=== PATIENT | male | born 1960 | race Caucasian/White ===

== ENCOUNTER 2023-11-11 21:58 | Inpatient (IN) | payer MEDICARE, OTHER, SELFPAY ==
[2023-11-11] VITALS (12 sets, daily range): BP systolic 157–207; BP diastolic 90–114; BMI 23.4; BMI 22.8
--- NOTE | 2023-11-11 13:56 | ED.SKININJ ---
HPI-Injury
<Zaria Rdz FORM BLOCK MAKER - Last Filed: 11/11/23 17:43>
General
Chief Complaint: Skin Problem
Source: patient
Exam Limitations: none
Time Seen by Provider: 11/11/23 13:46
Nursing documentation reviewed up to this point in time: agreed with
Travel History
Have you had any contact with someone who has COVID-19?: No
Do you have any symptoms of coronavirus? Fever > 100 degrees, chills, cough, shortness of breath, sore throat, loss of taste or smell, muscle aches, or headache?: No
History of Present Illness-Injury
Initial Injury comments:
63-year-old male with history of neuropathy, IDDM, anxiety states he saw his painter set 3 days ago and had callus shaved off sloughing, cleaning and debriding of at site of previously amputated left 5th toe. Last night noted redness around the
site. He has neuropathy in both feet with no sensation, so, no pain. Denies fever or chills. He is having a special sneaker made to take the pressure off of the affected area.
Patient also states 'my sugars have been all over the place.' Anywhere from 100-500 blood sugars at home. His PCP Dr. Nik Dumont is aware and he is scheduled for outpatient laboratory work in 5 days. He has a sliding scale he uses.
Past History
<Zaria Rdz FORM BLOCK MAKER - Last Filed: 11/11/23 17:43>
Past History
ED Past Medical History: HTN, IDDM, Psychiatric (Anxiety) and Other (Low back pain)
ED Past Surgical History: Orthopedic (Back surgeries) and Other (Amputation left fifth toe)
Social History
Tobacco: Non-smoker
Alcohol: Occasional
Personal:
Living: other (Resides with brother )
Employment: Disabled
Family History
Family History: Other (Noncontributory)
Review of Systems
<Zaria Rdz, FORM BLOCK MAKER - Last Filed: 11/11/23 17:43>
Review of Systems
Allergies reviewed?: Yes
All Other Systems: ROS reviewed and negative except as documented in HPI and ROS
Constitutional: Denies fever or chills
Respiratory: Denies trouble breathing
Cardiac: Denies chest pain
ABD/GI: Denies abdominal pain, nausea or vomiting
: Denies dysuria or difficulty voiding
Musculoskeletal: Reports no symptoms
Skin: Reports other (Redness around the amputation site of left fifth toe 3 days after painter set cleaned and debrided the area)
Neurological: Reports numbness (No feeling in his feet)
Phy Exam
<Zaria Rdz, FORM BLOCK MAKER - Last Filed: 11/11/23 17:43>
Physical Exam
Physical Exam:
GENERAL: No acute distress. A&Ox3.
CONSTITUTIONAL: Afebrile.
RESPIRATORY: Regular respirations, nonlabored, lungs clear.
CARDIOVASCULAR: Regular rate and rhythm, no murmurs, no rubs.
MUSCULOSKELETAL: Moves with ease. Well perfused.
SKIN: Warm, dry, pink. Left foot with missing 5th toe, sloughing, thick scaling skin dorsal and plantar aspect distal lateral foot. There is 6x6 cm reddened area proximal lateral dorsum head of 5th metatarsal. No lymphangitis. No significant warmth.
PSYCH: Normal mood and affect. Well kept, interactive and appropriate
NEUROLOGIC: Awake, alert and oriented. No focal neurological deficits
Course
<Zaria Rdz, FORM BLOCK MAKER - Last Filed: 11/11/23 17:43>
Orders/Labs/Results
Orders:
Orders
11/11/23 14:11
B-Hydroxybutyrate Urgent
Comment: add-on
Complete Blood Count/With Diff Urgent
Comprehensive Metabolic Panel Urgent
11/11/23 15:04
Add On- LAB Urgent
Tests Added?: B hydroxybuterate
Insulin Aspart [NOVOLOG vial] 10 units SC NOW STA
11/11/23 15:05
0.9% Sodium Chloride 1000 ml [Nss] 1,000 ml IV BOLUS
11/11/23 16:27
Piperacillin/Tazo 3.375 Gram [Zosyn] 3.375 gram in 50 ml IV NOW
11/11/23 16:30
Foot, Left 3 View [CR Foot - Left Min 3 Views] Urgent
Comment:
Reason For Exam: diabetic foot infection
Abnormal Lab Results
11/11/23 11/11/23
14:11 16:20
RBC 3.79 L 10^6/uL
(4.70-6.10)
Hgb 11.5 L g/dL
(13.0-18.0)
Hct 31.5 L %
(39.0-52.0)
Abs Immat Gran (auto) 0.1 H 10^3/uL
(0-0.05)
Immature Gran % 0.7 H %
(0-0.5)
Lymphocytes % 17.4 L %
(20.5-51.1)
Sodium 130 L mmol/L
(135-145)
BUN 34 H mg/dl
(9-20)
Creatinine 1.5 H mg/dL
(0.7-1.3)
Glucose 543 H* mg/dl
(70-99)
AST 14 L U/L
(17-59)
Albumin 3.3 L g/dl
(3.5-5.0)
POC Glucose 391 H mg/dl
(70-99)
11/11/23 14:11
11/11/23 14:11
Vital Signs
Initial and Last Documented VS:
Initial Vital Signs
Temp Pulse Resp BP Pulse Ox
97.5 F 92 16 200/112 98
02/25/24 13:03 11/11/23 13:03 11/11/23 13:03 11/11/23 13:03 11/11/23 13:03
Last Documented Vital Signs
Temp Pulse Resp BP Pulse Ox
98 F 84 16 172/98 96
11/11/23 14:30 11/11/23 15:20 11/11/23 15:20 11/11/23 15:19 11/11/23 15:20
Donor Services Specialist consulted with Physician
Donor Services Specialist consulted with physician?: Yes
Name of Physician Consulted: Mary
<Yamel Hernandez MD - Last Filed: 11/11/23 16:28>
Orders/Labs/Results
Orders:
Orders
11/11/23 14:11
B-Hydroxybutyrate Urgent
Comment: add-on
Complete Blood Count/With Diff Urgent
Comprehensive Metabolic Panel Urgent
11/11/23 15:04
Add On- LAB Urgent
Tests Added?: B hydroxybuterate
Insulin Aspart [NOVOLOG vial] 10 units SC NOW STA
11/11/23 15:05
0.9% Sodium Chloride 1000 ml [Nss] 1,000 ml IV BOLUS
11/11/23 16:27
Piperacillin/Tazo 3.375 Gram [Zosyn] 3.375 gram in 50 ml IV NOW
11/11/23 16:30
Foot, Left 3 View [CR Foot - Left Min 3 Views] Urgent
Comment:
Reason For Exam: diabetic foot infection
Abnormal Lab Results
11/11/23 11/11/23
14:11 16:20
RBC 3.79 L 10^6/uL
(4.70-6.10)
Hgb 11.5 L g/dL
(13.0-18.0)
Hct 31.5 L %
(39.0-52.0)
Abs Immat Gran (auto) 0.1 H 10^3/uL
(0-0.05)
Immature Gran % 0.7 H %
(0-0.5)
Lymphocytes % 17.4 L %
(20.5-51.1)
Sodium 130 L mmol/L
(135-145)
BUN 34 H mg/dl
(9-20)
Creatinine 1.5 H mg/dL
(0.7-1.3)
Glucose 543 H* mg/dl
(70-99)
AST 14 L U/L
(17-59)
Albumin 3.3 L g/dl
(3.5-5.0)
POC Glucose 391 H mg/dl
(70-99)
11/11/23 14:11
11/11/23 14:11
Vital Signs
Initial and Last Documented VS:
Initial Vital Signs
Temp Pulse Resp BP Pulse Ox
97.5 F 92 16 200/112 98
11/11/23 13:03 11/11/23 13:03 11/11/23 13:03 11/11/23 13:03 11/11/23 13:03
Last Documented Vital Signs
Temp Pulse Resp BP Pulse Ox
98 F 84 16 172/98 96
11/11/23 14:30 11/11/23 15:20 11/11/23 15:20 11/11/23 15:19 11/11/23 15:20
<Zaria Rdz FORM BLOCK MAKER - Last Filed: 11/11/23 17:43>
MDM/Problems Addressed
Differential Diagnosis Includes:
cellulitis, dehydration, hyperglycemia, DKA
MDM/Problems Addressed:
63-year-old male with history of neuropathy, IDDM, anxiety states he saw his painter set 3 days ago and had callus shaved off sloughing, cleaning and debriding of at site of previously amputated left 5th toe. Last night noted redness around the
site. He has neuropathy in both feet with no sensation, so, no pain. Denies fever or chills.
Patient also states 'my sugars have been all over the place.' Anywhere from 100-500 blood sugars at home. His PCP Dr. Nik Dumont is aware and he is scheduled for outpatient laboratory work in 5 days. He has a sliding scale he uses.
Afebrile, NAD
Mild redness surrounding the affected area on the left foot, no significant cellulitis, no lymphangitis, no significant swelling
11/11/2023 1458 PM
CBC: No clinically significant abnormality
CMP: BUN/Creat 34/1.5 Glucose 543 No DKA
Case discussed with Dr. Hernandez who examined patient
11/11/2023 1629 PM
Recheck blood glucose after insulin is 391
Plan: Admit: Diabetic foot infection, hyperglycemia
Hospitalist notified of admission
Chronic conditions affecting care: DM
<Zaria Rdz NP - Last Filed: 11/11/23 17:43>
*Critical Care Note
Total Time (30-74mins, 75-104mins- exclusive of procedures): Not Applicable
ED Attending Note
<Zaria Rdz NP - Last Filed: 11/11/23 17:43>
-
Portions of this chart may have been created with voice recognition software.� Occasional wrong word or��sound alike� substitutions may have occurred due to the inherent limitations of voice recognition software.
<Yamel Hernandez MD - Last Filed: 11/11/23 16:28>
ED Attending Note
Patient seen and examined by attending physician: Yes
I performed the substantive portion of visit, reviewed & personally made and approve the management plan that is documented in note by myself or JIMMY.: Yes
ED Attending Note:
Patient appears nontoxic, however, he does have warm erythema up his foot and significant swelling. Patient reports that this redness and swelling is new since last night. I am concerned about a diabetic foot infection, which may be driving
patient's blood sugar up.
Discharge Plan
Departure
Patient Disposition: Admit
Date of Disposition: 11/11/23
Time of Disposition: 16:28
Admit to: Med/Surg
Presentation/result/management discussed w/ accepting MD/DO: Hospitalist
Condition: Fair
Discharge Problem:
Diabetic infection of left foot, Acute hyperglycemia
Prescriptions:
No Action
acetaminophen 500 mg Tablet
500 mg PO Q6HPRN PRN (Reason: mild pain)
Novolin R Regular U100 Insulin 100 unit/mL Solution
10 sliding scale dose SC AC
amlodipine 10 mg Tablet
10 mg PO DAILY 30 Days Qty: 30 0RF
aspirin 81 mg Tablet,Chewable
81 mg PO DAILY 30 Days Qty: 30 0RF
gabapentin 400 mg capsule
400 mg PO BID Qty: 60 0RF
Visbiome 112.5 billion cell Capsule
1 cap PO DAILY
lorazepam 1 mg tablet
1 mg PO TID
bupropion HCl [Wellbutrin SR] 150 mg Tablet Sustained-Release 12 Hr
150 mg PO BID
Referrals:
Nik Dumont MD [Family Provider] -
Interventions
Interventions:
*Risk Screen - Suicide Last Done: 11/11/23 15:08
*General Assessment Last Done: 11/11/23 14:18
*Neglect/Abuse Screening Last Done: 11/11/23 14:18
ED- Fall Risk Assessment Last Done: 11/11/23 14:18
*ED COVID-19 Vaccine History Last Done: 11/11/23 13:03
ED-Skin Assessment Last Done: 11/11/23 14:18
[2023-11-11 14:20] LABS: % Basophils 0.6 % (0-2); % Eosinophils 3.6 % (0-6); % Immature Granulocytes 0.7 % (0-0.5); % Lymphocytes 17.4 % (20.5-51.1); % Monocytes 6.6 % (1.7-9.3); % Neutrophils 71.1 % (42.2-75.2); Absolute Eosinophils 0.3 10^3/uL (0-0.7); Absolute Immature Granulocytes 0.1 10^3/uL (0-0.05); Absolute Lymphocytes 1.2 10^3/uL (1.2-3.4); Absolute Monocytes 0.5 10^3/uL (0.1-0.6); Absolute Neutrophils 5.1 10^3/uL (1.4-6.5); Hematocrit 31.5 % (39.0-52.0); Hemoglobin 11.5 g/dL (13.0-18.0); Mean Corp Hgb Conc. 36.5 g/dL (33.0-37.0); Mean Corpuscular Hgb 30.3 pg (27.0-31.0); Mean Corpuscular Volume 83.1 fL (80.0-94.0); Mean Platelet Volume 9.2 fL (7.4-10.4); Nucleated Red Blood Cells % 0 % (-); Platelet Count 239 10^3/uL (130-400); Red Blood Cell Count 3.79 10^6/uL (4.70-6.10); Red Cell Dist. Width 12.5 % (11.5-14.5); White Blood Cell Count 7.1 10^3/uL (4.8-10.8)
[2023-11-11 14:47] LABS: ALT (SGPT) 13 U/L (0-50); AST (SGOT) 14 U/L (17-59); Albumin 3.3 g/dl (3.5-5.0); Alkaline Phosphatase 118 U/L (38-126); Blood Urea Nitrogen 34 mg/dl (9-20); Calcium 9.1 mg/dl (8.4-10.2); Carbon Dioxide 22 mmol/L (22-30); Chloride 98 mmol/L (98-107); Estimated Creatinine Clearance 59 ml/min; Glucose 543 mg/dl (70-99); Potassium 4.6 mmol/L (3.5-5.1); Sodium 130 mmol/L (135-145); Total Bilirubin 0.6 mg/dl (0.2-1.3); Total Protein 6.7 g/dl (6.3-8.2); eGFR 52.31
--- NOTE | 2023-11-11 15:00 | PHANOTE ---
Med Rec note- want to verify patient medication but patient pharmacy closed until 9am Chris
[2023-11-11] MEDS: NOVOLOG vial 10 UNITS SC (15:14)
[2023-11-11] MEDS: NSS 1000 IV (15:17)
[2023-11-11 16:21] LABS: Glucose - Point of Care 391 mg/dl (70-99)
[2023-11-11] MEDS: ZOSYN 50 IV ×2 (16:53→22:30)
[2023-11-11 17:03] LABS: B-Hydroxybutyrate 0.14 mmol/L (0.02-0.27)
--- NOTE | 2023-11-11 21:10 | HPS.HSE ---
Family Physician
-
Family Physician: Nik Dumont
Chief Complaint
-
Left Foot Redness / Swelling
History of Present Illness
Patient is a 63y M with PMH significant for DM-II and prior L foot metatarsal amputation who presents to ED complaining of swelling and redness in the L foot. Patient states that he noted redness, skin peeling and swelling around the prior
surgical site last PM. He has no pain and has no sensation in the foot at baseline secondary to severe neuropathy. He denies any systemic complaints such as fevers, chills, N/V/D, etc. Patient spoke with his Electrical Plumbing Supervisor who recommended he present
to the ED for evaluation.
Medical History
Past Medical History
Past Medical History: Reports Other
Additional Past Medical History:
DM-II
Anxiety / Depression
Lumbar DDD
Severe Peripheral Neuropathy
Hypertension
CKD III
Past Surgical History: Reports Other
Additional Past Surgical History:
Lumbar Discectomy
Lumbar Fusion with Hardware
Lumbar Revision with Rhizotomy
Cholecystectomy
Left Foot 5th Transmetatarsal Amputation
Social History
Tobacco: Non-smoker
Alcohol: Occasional
Drug: None
Family History
Family History: Not pertinent
Allergies / Home Medications
Allergies reflects when Allergies were last updated in [employer] [facility].
Home Medications with original date entered in [employer] [facility]
Allergy/Medication List:
Allergies
Allergy/AdvReac Type Severity Reaction Status Date / Time
No Known Allergies Allergy Verified 11/11/23 13:05
Home Medications
acetaminophen 500 mg tablet 500 mg PO Q6HPRN PRN mild pain 03/26/22
amlodipine 10 mg tablet 10 mg PO DAILY 30 days #30 tabs 04/07/22
aspirin 81 mg chewable tablet 81 mg PO DAILY 30 days #30 tabs 04/07/22
gabapentin 400 mg capsule 400 mg PO BID #60 caps 04/10/22
Lactobac no.2-Bifidobac no.1-S. thermo 112.5 billion cell capsule (Visbiome) 1 cap PO DAILY 11/11/23
bupropion HCl 150 mg tablet,12 hr sustained-release (Wellbutrin SR) 150 mg PO BID 11/11/23
lorazepam 1 mg tablet 1 mg PO TID Anxiety 11/11/23
Patient states that he takes insulin only once daily. He believes it is 70/30. He takes a varying amount based on his sugars.
Review of Systems
-
History Source: Patient
A 12 point ROS was completed and negative except as noted: Yes
Constitutional: Denies Fever or Chills
Respiratory: Denies Cough or Trouble Breathing
Cardiac: Denies Chest Pain or Palpitations
Abdomen/GI: Denies Abdominal Pain, Nausea, Vomiting or Diarrhea
: Denies Dysuria or Frequency
Musculoskeletal: Reports Edema
Skin: Reports Other (Redness)
Neurological: Denies Dizzy or Headache
Psych: Denies Depression or Anxiety
Physical Exam
Vital Signs
Vital Signs
Temp Pulse Resp BP Pulse Ox
98 F 82 16 170/96 98
11/11/23 14:30 11/11/23 20:24 11/11/23 20:24 11/11/23 20:00 11/11/23 20:15
Physical Exam
General: Other (63y M in no acute distress.)
HEENT: Moist mucous membranes
Respiratory: Clear; No Wheezes, Rales or Rhonchi
Cardiac: S1/S2 and Regular Rhythm; No Murmur
GI: Soft, Non Tender, Non Distended and Normal Bowel Sounds
Musculoskeletal: No Clubbing and No Cyanosis
Skin: Other (L lateral foot with crusted lesion at distal aspect of the 5th MT / prior surgical site. Mild dorsal erythema and localized edema with some increased warmth. No tenderness / sensation.)
Hematologic/Lymphatic: Other (Pulses at the L ankle are excellent.)
Laboratory Results
-
11/11/23 14:11
11/11/23 14:11
Laboratory Results
Total Bilirubin 0.6 mg/dl (0.2-1.3) 11/11/23 14:11
AST 14 U/L (17-59) L 11/11/23 14:11
ALT 13 U/L (0-50) 11/11/23 14:11
Alkaline Phosphatase 118 U/L (38-126) 11/11/23 14:11
Impression/Plan
-
A/P: Patient is a 63y M with PMH significant for DM-II and prior L 5th MT amputation who presents to ED complaining of swelling and redness of the L foot since last PM.
Left Foot Infection
h/o Left 5th MT Amputation
- Admit for further evaluation and treatment.
- Cover for now with IV Vanco and Zosyn for possible DM foot infection.
- X-rays done in the ED show indistinct margin of the remaining 5th MT - suspicious for osteomyelitis.
- Check MRI for confirmation.
- Podiatry evaluation for additional recommendations.
- Follow for any increase in erythema, development of lymphangitis, etc.
- Pulses at the L foot on exam are excellent.
DM-II, Uncontrolled
- Poor glucose control which sounds chronic by patient history.
- Current insulin regimen is atypical with once daily 70/30 or similar.
- Will begin basal insulin this evening and cover mealtimes with SSI.
- Adjust regimen as needed for improved control.
- Update A1C.
Pseudohyponatremia
- Secondary to the above. Corrected sodium is 137.
Benign Hypertension
- BP elevated in the ED.
- Will give dose of amlodipine now.
- Continue outpatient regimen and adjust as needed for BP control.
Anxiety / Depression
- Stable. Continue bupropion.
- Continue Ativan, but change to PRN.
Lumbar Spine Disease
Severe Peripheral Neuropathy
- Stable / unchanged.
- Patient has no neuropathic pain - but significant lack of sensation.
- Continue gabapentin.
DVT Prophylaxis: Lovenox
Code Status: Full
[2023-11-11] MEDS: NORVASC 10 MG PO (21:41)
[2023-11-11 22:18] LABS: Glucose - Point of Care 199 mg/dl (70-99)
[2023-11-11] MEDS: TYLENOL 650 MG PO (23:24)
[2023-11-11] MEDS: LANTUS 0.119999999999999996 UNITS SC (23:39)
[2023-11-11] MEDS: VANCOCIN 540 MG IV (23:46)
[2023-11-12 00:41] VITALS: BP 138/68
[2023-11-12 02:56] VITALS: BP 142/81
--- NOTE | 2023-11-12 03:00 | PTCARENOTE ---
Addendum entered by Nicolle Mckeon 11/12/23 05:25:
Pt continues nausea, diarrhea, headache, muscle spasms throughout the night. House TOUCH UP WORKER aware. Cdiff and norovirus sent.
Original Note:
Pt incontinent of large amounts of stool, stating nausea, dizziness. Blood sugar 260 VSS. Assisted pt back to bed house TOUCH UP WORKER aware, order for zofran- given.
[2023-11-12 03:03] LABS: Glucose - Point of Care 260 mg/dl (70-99)
[2023-11-12] MEDS: ZOFRAN 4 MG IV ×3 (03:22→20:16)
[2023-11-12] MEDS: ZOSYN 50 IV ×2 (03:28→09:06)
[2023-11-12] MEDS: TYLENOL 650 MG PO ×2 (04:25→20:15)
[2023-11-12] MEDS: VISBIOME 1 CAP PO (06:05)
[2023-11-12 06:28] VITALS: BMI 22.7
[2023-11-12 07:29] LABS: Glucose - Point of Care 315 mg/dl (70-99)
[2023-11-12 07:30] VITALS: BP 155/80
[2023-11-12 08:12] LABS: Hematocrit 30.3 % (39.0-52.0); Hemoglobin 10.5 g/dL (13.0-18.0); Mean Corp Hgb Conc. 34.7 g/dL (33.0-37.0); Mean Corpuscular Hgb 30.2 pg (27.0-31.0); Mean Corpuscular Volume 87.1 fL (80.0-94.0); Mean Platelet Volume 9.5 fL (7.4-10.4); Platelet Count 245 10^3/uL (130-400); Red Blood Cell Count 3.48 10^6/uL (4.70-6.10); Red Cell Dist. Width 12.9 % (11.5-14.5); White Blood Cell Count 7.8 10^3/uL (4.8-10.8)
--- NOTE | 2023-11-12 08:35 | PN.DE.MGMTRT ---
Insulin Management
- -
11/12/2023: Diabetes Management Consult
63 year old male admitted with left foot swelling and redness. PMH includes: HTN, Severe Peripheral Neuropathy, CKD III, Lumbar DDD, Anxiety /Depression and T2DM, Admitted with glucose of 543, current A1C 14.1%. Pt is not a good historian, states he
takes 70/30 insulin but does not take a standard dose, he reports taking 70/30 on a SS, ~ 5-20 units in the morning and no other insulin or diabetes medications, although last admission he was taking NPH once a day with Reg insulin SS.
He is currently ordered Lantus 12 units @HS and corrective insulin, with a FBG of 309 and premeal range of 315 to 391.
Will start 70/30 20 units BID, 1st does now. Cont low corrective
Will follow and adjust further as necessary.
Diabetes History
- -
Type of Diabetes: 2 requiring insulin
Pre-Admission Diabetes Regimen
11/11/23
14:11
Creatinine 1.5 H
Insulin Pump Settings
IP Diabetes Regimen
11/11/23 11/11/23 11/11/23
14:11 16:20 22:17
Glucose 543 H*
POC Glucose 391 H 199 H
11/12/23 11/12/23
03:01 07:28
Glucose
POC Glucose 260 H 315 H
Patient Education
[2023-11-12 08:38] LABS: Blood Urea Nitrogen 31 mg/dl (9-20); Calcium 8.7 mg/dl (8.4-10.2); Carbon Dioxide 23 mmol/L (22-30); Chloride 103 mmol/L (98-107); Estimated Creatinine Clearance 51 ml/min; Glucose 309 mg/dl (70-99); Potassium 4.7 mmol/L (3.5-5.1); Sodium 137 mmol/L (135-145); eGFR 45.02
[2023-11-12] MEDS: WELLBUTRIN SR (12 hour sustained release) 150 MG PO ×2 (09:00→20:15)
[2023-11-12] MEDS: NEURONTIN 400 MG PO ×2 (09:00→20:15)
[2023-11-12] MEDS: LOW STRENGTH ASPIRIN 81 MG PO (09:00)
[2023-11-12] MEDS: NORVASC 10 MG PO (09:01)
[2023-11-12] MEDS: NOVOLOG FLEXPEN-MODERATE RESISTANCE 7 UNITS SC (09:02)
--- NOTE | 2023-11-12 09:15 | PHA.VAN.IN ---
Assessment
- Assessment
Renal Function: Unknown baseline (SCR increased slightly from admission 1.5-->1.7)
Concomitant Antimicrobials: piperacillin/tazobactam
Plan
- Plan
Initial / Loading Dose: 2000mg - 11/11 23:46
Maintenance Regimen: dosing by level - give additional 750mg today to maintain levels
Monitorin/27 06
Pharmacokinetics Vancomycin I
- -
Patient Age: 63
Patient Sex: Male
Vancomycin Day #: 1
Indication: Diabetic Foot
Requesting Provider: Dr. Lamb
Pertinent Antimicrobial Allergies:
NKDA
Height / Weight:
Height 6 ft 2 in
Actual Weight 80.15 kg
Pertinent Past Medical History: DM 2, CKD
- Vital Signs / Lab Results
Temp Pulse Resp BP Pulse Ox
98.3 F 92 19 155/80 96
11/12/23 07:30 11/12/23 09:01 11/12/23 07:30 11/12/23 09:01 11/12/23 07:30
Lab Results - Hematology
11/11/23 11/12/23
14:11 07:10
WBC 7.1 7.8
Lab Results - Chemistry
11/11/23 11/12/23
14:11 07:10
BUN 34 H 31 H
Creatinine 1.5 H 1.7 H
Estimated Creat Clear 59 51
Albumin 3.3 L
[2023-11-12 09:22] LABS: Glycohemoglobin (HgbA1c) 14.1 % (4.0-5.6)
[2023-11-12] MEDS: NOVOLOG MIX 70/30 FLEXPEN 20 UNITS SC ×2 (10:44→17:35)
--- NOTE | 2023-11-12 11:45 | W.PN.HOSP.TC ---
Today's Communication/Plan
-
MR pending
strict glycemic control
ID c/s
IV abx
Assessment / Plan
Assessment / Plan
A/P:� Patient is a 63y M with PMH significant for DM-II and prior L 5th MT amputation who presents to ED complaining of swelling and redness of the L foot since last PM.
Left Foot Infection
h/o Left 5th MT Amputation
�- Cover for now with IV Vanco and Zosyn for possible DM foot infection.
�- X-rays done in the ED show indistinct margin of the remaining 5th MT - suspicious for osteomyelitis.
�- Check MRI for confirmation pending
�- Podiatry evaluation for additional recommendations.
�- Follow for any increase in erythema, development of lymphangitis, etc.
DM-II, Uncontrolled
�- Poor glucose control which sounds chronic by patient history.
�- Current insulin regimen is atypical with once daily 70/30 or similar.
�- Adjust regimen as needed for improved control.
�- Update A1C elevated at 14.1
- started on insulin 70/30 regimen of 20units BID
- DM MAGNETO REPAIRER consulted.
Pseudohyponatremia
�- Secondary to the above hyperglycemia
Headache likely 2/2 tension/MSK
-ice pack
-tylenol prn
-Check CT head
-no neurological deficit
Benign Hypertension
�- BP elevated in the ED.
�- Will give dose of amlodipine now.
�- Continue outpatient regimen and adjust as needed for BP control.
Anxiety / Depression
�- Stable.� Continue bupropion.
�- Continue Ativan, but change to PRN.
Lumbar Spine Disease
Severe Peripheral Neuropathy
�- Stable / unchanged.
�- Patient has no neuropathic pain - but significant lack of sensation.
�- Continue gabapentin.
DVT Prophylaxis:� Lovenox
Code Status:� Full
Anticipated Discharge: > 48 hours
Subjective/Interval History
-
Date of Service: November 12, 2023
states of left foot erythema
states of chronic headache/muscle tightness in neck/upper back
no fever or chills or nausea or vomiting
No diplopia
denies neck stiffness
Objective Data
-
Labs:
Laboratory Results
11/12/23
07:10
WBC 7.8
Hgb 10.5 L
Hct 30.3 L
Plt Count 245
Sodium 137
Potassium 4.7
Chloride 103
Carbon Dioxide 23
BUN 31 H
Creatinine 1.7 H
Glucose 309 H
Calcium 8.7
Vital Signs:
Vital Signs
Temp Pulse Resp BP Pulse Ox
98.3 F 92 19 155/80 96
11/12/23 07:30 11/12/23 09:01 11/12/23 07:30 11/12/23 09:01 11/12/23 07:30
Physical Exam
-
General: Well Developed and No Apparent Distress
HEENT: Normocephalic, Atraumatic and Moist Mucous Membranes
Respiratory: Clear to Auscultation
Cardiac: Regular Rhythm and S1/S2; Negative Murmur, Rub or Gallop
GI: Soft, Nontender, Nondistended and Normal Bowel Sounds; Negative Organomegaly
Rectal: Deferred by Provider
Musculoskeletal: No Clubbing, No Cyanosis, No Edema and Other (TTP at upper trapezius area. )
Skin: Other (L lateral foot with crusted lesion at distal aspect of the 5th MT / prior surgical site. Mild dorsal erythema and localized edema with some increased warmth. No tenderness / sensation.); Negative Rash
Neuro: Awake, Alert, Oriented, AO x 3, No Motor Deficits and Nonfocal/Grossly Intact
Psych: Calm
Data Reviewed
-
Total Time Spent with Patient (in minutes): 54
[2023-11-12] MEDS: VANCOCIN 150 IV (12:15)
[2023-11-12 12:19] LABS: Glucose - Point of Care 178 mg/dl (70-99)
[2023-11-12] MEDS: NOVOLOG FLEXPEN-MODERATE RESISTANCE 1 UNITS SC (12:20)
--- NOTE | 2023-11-12 12:34 | CON.ID ---
Consultation
-
Date/Time Consultation Requested: 11/12/2023, 0812
Date/Time Consultation Performed: 11/12/2023, 1235
Requesting Provider: Dr. Indio Rivera
Performing Provider: Dr. Adelaida Lay
Reason for Consultation: Left foot infection
Chief Complaint / Past History
Chief Complaint
Left foot redness
History of Present Illness
63 year old male with poorly-controlled DM, peripheral neuropathy, hx of extensive left 5th toe infection s/p TMA and subsequent I+D x 2 for ongoing infection (2021) who presented to ED yesterday due to one day history of left foot redness and
swelling. No fever or chills. +nausea and DUARTE. Blodd glucose >500. MRI of foot suspicious for left 5th metatarsal shaft osteo. He is currently on Vancomycin and Zosyn. He reports left foot swelling and redness improved today.
Past History
Additional Past Medical History:
DM2
Peripheral Neuropathy
Hypertension
CKD III
Anxiety / Depression
Lumbar DDD s/p discectomy, lumbar fusion with HW
Lumbar revision with rhizotomy
Cholecystectomy
Left 5th toe TMA
Allergy History:
No Known Allergies Allergy (Verified 11/11/23 13:05)
Medications Reviewed: Yes
Current Antibiotics:
Zosyn
Vancomycin
Social History
Tobacco: Non-Smoker
Alcohol: None
Drug: None
Family History
Family History: Not Pertinent
Review of Systems
Review of Systems
General: Negative Fever, Chills or Change in Appetite
HEENT: Negative Sinus Problems or Pharyngitis
Cardiovascular: Negative Chest Pain
Respiratory: Negative Dyspnea or Cough
Gasteroenterology: Nausea; Negative Vomiting
Genital / Urological: Negative Dysuria
Skin / Hair / Nails: Negative Rash
Neurological: Headache (back of head); Negative Dizziness
All systems: All other systems were reviewed and were negative
Vital Signs
Temp Pulse Resp BP Pulse Ox
98.3 F 92 19 155/80 96
11/12/23 07:30 11/12/23 09:01 11/12/23 07:30 11/12/23 09:01 11/12/23 07:30
Physical Exam
Physical Exam
Constitutional: No Acute Distress and Non-toxic
Head: Other (no frontal or maxillary sinus tenderness)
Eyes: No Conjunctival Hemorrhage and Sclera Anicteric
Cardiovascular: Regular Rate and S1/S2
Pulmonary: Clear
Gastrointestinal: Soft, Non Tender, Non Distended and Normal Bowel Sounds
Extremities: Pulses (+ palpable left pedal pulse) and Other (Left foot examined with podaitry: 5th toe TMA site without open wounds, + dry skin, left forefoot + erythema, warmth and induration)
Neurological: AO x 3; Negative Meningeal Signs (neck supple)
Lab / Diagnostic Study Results
11/12/23 07:10
11/12/23 07:10
Abs Immat Gran (auto) 0.1 10^3/uL (0-0.05) H 11/11/23 14:11
Absolute Neuts (auto) 5.1 10^3/uL (1.4-6.5) 11/11/23 14:11
Absolute Lymphs (auto) 1.2 10^3/uL (1.2-3.4) 11/11/23 14:11
Absolute Monos (auto) 0.5 10^3/uL (0.1-0.6) 11/11/23 14:11
Absolute Basos (auto) 0.0 10^3/uL (0-0.2) 11/11/23 14:11
Immature Gran % 0.7 % (0-0.5) H 11/11/23 14:11
Neutrophils % 71.1 % (42.2-75.2) 11/11/23 14:11
Lymphocytes % 17.4 % (20.5-51.1) L 11/11/23 14:11
Monocytes % 6.6 % (1.7-9.3) 11/11/23 14:11
Eosinophils % 3.6 % (0-6) 11/11/23 14:11
Basophils % 0.6 % (0-2) 11/11/23 14:11
Microbiology Results
Micro:
11/12/23 05:24 C. difficile GDH Antigen & Toxins - Final
Feces/Stool Negative for toxigenic C.difficile
- Final
Negative for Norovirus GI and GII.
11/11/23 23:36 Blood Culture - Pending
Blood/Venous
11/11/23 23:31 Blood Culture - Pending
Blood/Venous
11/12/23 MRI LLE: Large amount of intramedullary signal abnormality in the LEFT FIFTH METATARSAL SHAFT suspicious for ACUTE OSTEOMYELITIS. If there are no signs/symptoms of infection, postoperative edema or severe stress reaction would be alternative
diagnostic possibilities.
2. � 1.0 cm rim-enhancing fluid collection adjacent to the distal fifth metatarsal shaft suspicious for a small abscess. A small postoperative seroma is an alternative diagnostic possibility if there are no signs/symptoms of infection.
3. � Severe enhancing soft tissue edema around the fifth metatarsal shaft which could be secondary to myositis or postoperative edema.
Assessment / Plan
# Acute left foot cellulitis
-hx of left 5th toe extensive infection s/p TMA (2021)
- MRI LLE reports 1 cm abscess and osteo of 5th MT shaft.
However, pt without open wounds for contiguous spread of infection. Imaging does not correlate clinically.
- Treat as celluliits. Narrow Zosyn/Vancomycin to cefazolin.
-Monitor closely.
# Poorly controlled DM with severe neuropathy.
-Discussed importance of tight glucose control.
Care Review
Plan reviewed with: Physician (Dr. Godinez)
[2023-11-12 12:41] VITALS: BMI 22.7
--- NOTE | 2023-11-12 14:26 | W.CS.POD ---
Consult Summary - Podiatry
-
63 yo diabetic neuropathic male known to myself with past h/o LT foot severe diabetic foot infection and had debridement and long standing wound care in 2021, was doing very well till now, He presented to the hosp with LT foot redness and thick
callus lesion at the pervious surgical site, he states that his sugars were very high and has headaches , denies any fever, chills. HE is currently on IV abx , improved redness to the LT foot
Reviewed PMH, meds and allergies
Exam ; Palpable pedal pulses b/l feet both DP and PT are palpable
Loss of protective sensation b/l feet
LT lateral foot erythematous, no active drainage, no open ulcerations noted, no Signs of any crepitus felt
no Signs of any abscess felt, no red streaking up the foot
WBC count is WNL.
Xray LT foot suspicious for LT 5th met distal aspect osteomyelitis
MRi shows Large amount of intramedullary signal abnormality in the LEFT FIFTH METATARSAL SHAFT suspicious for ACUTE OSTEOMYELITIS. If there are no signs/symptoms of infection, postoperative edema or severe stress reaction would be alternative
diagnostic possibilities.
1.0 cm rim-enhancing fluid collection adjacent to the distal fifth metatarsal shaft suspicious for a small abscess. A small postoperative seroma is an alternative diagnostic possibility if there are no signs/symptoms of infection.
�Severe enhancing soft tissue edema around the fifth metatarsal shaft which could be secondary to myositis or postoperative edema.
A/P: LT foot cellultis
Diabetic neuropathy
LT th metatarsal distal aspect with acute osteomyelitic changes - does not correlate well with clinical exam.
Non compliance with Bg maintenance and shoe gear etc.
Plan : IV abx per ID
Reviewed Xays and MRI report , since clinically there is no acute changes , Will cont to monitor the foot closely and treat cellultis .
Will follow him in the office wkly
no surgical plans by podiatry
[2023-11-12] MEDS: ANCEF 10 IV ×2 (14:42→22:09)
[2023-11-12 15:30] VITALS: BP 159/82
[2023-11-12 16:25] LABS: Glucose - Point of Care 211 mg/dl (70-99)
[2023-11-12] MEDS: LOVENOX 40 MG SC (17:36)
[2023-11-12] MEDS: NOVOLOG FLEXPEN-MODERATE RESISTANCE 3 UNITS SC (17:36)
[2023-11-12 19:26] LABS: Hepatitis C Antibody Negative (Negative)
[2023-11-12 21:16] LABS: Glucose - Point of Care 74 mg/dl (70-99)
[2023-11-12 23:34] VITALS: BP 157/86
[2023-11-13 06:00] VITALS: BMI 22.7
[2023-11-13] MEDS: ANCEF 10 IV ×3 (06:17→22:13)
[2023-11-13] MEDS: TYLENOL 650 MG PO (06:23)
[2023-11-13 07:26] LABS: Glucose - Point of Care 193 mg/dl (70-99)
[2023-11-13 07:35] VITALS: BP 192/99
[2023-11-13] MEDS: LOW STRENGTH ASPIRIN 81 MG PO (07:38)
[2023-11-13] MEDS: WELLBUTRIN SR (12 hour sustained release) 150 MG PO ×2 (07:39→20:07)
[2023-11-13] MEDS: NEURONTIN 400 MG PO ×2 (07:39→20:07)
[2023-11-13] MEDS: VISBIOME 1 CAP PO (07:39)
[2023-11-13] MEDS: NORVASC 10 MG PO (07:40)
[2023-11-13] MEDS: NOVOLOG FLEXPEN-MODERATE RESISTANCE 1 UNITS SC (07:42)
[2023-11-13] MEDS: NOVOLOG MIX 70/30 FLEXPEN 20 UNITS SC ×2 (07:42→18:40)
[2023-11-13 07:53] LABS: % Basophils 0.7 % (0-2); % Eosinophils 4.6 % (0-6); % Immature Granulocytes 0.5 % (0-0.5); % Lymphocytes 20.7 % (20.5-51.1); % Monocytes 6.9 % (1.7-9.3); % Neutrophils 66.6 % (42.2-75.2); Absolute Basophils 0.1 10^3/uL (0-0.2); Absolute Eosinophils 0.3 10^3/uL (0-0.7); Absolute Lymphocytes 1.5 10^3/uL (1.2-3.4); Absolute Monocytes 0.5 10^3/uL (0.1-0.6); Absolute Neutrophils 4.9 10^3/uL (1.4-6.5); Hematocrit 32.3 % (39.0-52.0); Hemoglobin 11.1 g/dL (13.0-18.0); Mean Corp Hgb Conc. 34.4 g/dL (33.0-37.0); Mean Corpuscular Hgb 29.8 pg (27.0-31.0); Mean Corpuscular Volume 86.8 fL (80.0-94.0); Mean Platelet Volume 9.3 fL (7.4-10.4); Nucleated Red Blood Cells % 0 % (-); Platelet Count 266 10^3/uL (130-400); Red Blood Cell Count 3.72 10^6/uL (4.70-6.10); Red Cell Dist. Width 12.9 % (11.5-14.5); White Blood Cell Count 7.4 10^3/uL (4.8-10.8)
[2023-11-13 08:05] LABS: Blood Urea Nitrogen 27 mg/dl (9-20); Carbon Dioxide 23 mmol/L (22-30); Chloride 103 mmol/L (98-107); Estimated Creatinine Clearance 58 ml/min; Glucose 198 mg/dl (70-99); Potassium 3.9 mmol/L (3.5-5.1); Sodium 137 mmol/L (135-145); eGFR 52.31
[2023-11-13] MEDS: NOVOLOG FLEXPEN-LOW RESISTANCE 1 UNITS SC (08:35)
[2023-11-13] MEDS: PERCOCET 5/325 1 TABLET PO ×3 (09:08→20:05)
--- NOTE | 2023-11-13 10:57 | PN.DE.MGMTRT ---
Insulin Management
- -
11/12/2023: Diabetes Management Consult
63 year old male admitted with left foot swelling and redness. PMH includes: HTN, Severe Peripheral Neuropathy, CKD III, Lumbar DDD, Anxiety /Depression and T2DM, Admitted with glucose of 543, current A1C 14.1%. Pt is not a good historian, states he
takes 70/30 insulin but does not take a standard dose, he reports taking 70/30 on a SS, ~ 5-20 units in the morning and no other insulin or diabetes medications, although last admission he was taking NPH once a day with Reg insulin SS.
He is currently ordered Lantus 12 units @HS and corrective insulin, with a FBG of 309 and premeal range of 315 to 391.
Will start 70/30 20 units BID, 1st does now. Cont low corrective
Will follow and adjust further as necessary.
11/13/2023 Diabetes Management Follow up
70/30 BID started yesterday. Glucose 178 and 211 pre lunch and dinner but 74 @ hs. Will follow glucose today for further needed adjustments. May require lower dose with dinner. He states he has a glucose monitor. He would like to see an
hearing aid assembly supervisor. Will provide information for Dr. Ruiz.
Diabetes History
- -
Type of Diabetes: 2 requiring insulin
Pre-Admission Diabetes Regimen
11/13/23
06:58
Creatinine 1.5 H
Lab Results
Hemoglobin A1c 14.1 % (4.0-5.6) H 11/12/23 07:10
Insulin Pump Settings
IP Diabetes Regimen
11/12/23 11/12/23 11/12/23
12:18 16:18 21:14
Glucose
POC Glucose 178 H 211 H 74
11/13/23 11/13/23
06:58 07:23
Glucose 198 H
POC Glucose 193 H
Meal type: Breakfast
Meal type: Dinner
Amount consumed: 70%
Amount consumed: 90%
Patient Education
--- NOTE | 2023-11-13 11:13 | W.PN.ID1 ---
Date of Service
Date of Service: November 13, 2023
Today's Communication
From ID standpoint can dc home on cephalexin 1000mg po tid x more days.
Assessment / Plan
# Acute left foot cellulitis
-hx of left 5th toe extensive infection s/p TMA (2021)
- MRI LLE reports 1 cm abscess and osteo of 5th MT shaft.
However, pt without open wounds for contiguous spread of infection. Imaging does not correlate clinically.
- Treating as cellulitis which is significantly improving on IV cefazolin.
- From ID standpoint can dc home on cephalexin 1000mg po tid x more days.
# Poorly controlled DM with severe neuropathy.
-Discussed importance of tight glucose control.
#Additional Past Medical History:
DM2
Peripheral Neuropathy
Hypertension
CKD III
Anxiety / Depression
Lumbar DDD s/p discectomy, lumbar fusion with HW
Lumbar revision with rhizotomy
Cholecystectomy
Left 5th toe TMA
Subjective / Review of Systems
No complaints today.
Vital Signs / Physical Exam
Vital Signs
Vital Signs
Temp Pulse Resp BP Pulse Ox
97.8 F 90 16 176/102 97
11/13/23 07:35 11/13/23 07:40 11/13/23 07:35 11/13/23 07:40 11/13/23 07:35
Physical Exam
Constitutional: No Acute Distress and Comfortable
Cardiovascular: Regular Rate and S1/S2
Pulmonary: Clear
Gastrointestinal: Soft, Non Tender and Non Distended
Extremities: Other (left foot erythema and edema resolving)
Objective Data
Lab Data
Lab Results
11/13/23 06:58
11/13/23 06:58
Estimated Creat Clear 58 ml/min 11/13/23 06:58
Total Bilirubin 0.6 mg/dl (0.2-1.3) 11/11/23 14:11
AST 14 U/L (17-59) L 11/11/23 14:11
ALT 13 U/L (0-50) 11/11/23 14:11
Alkaline Phosphatase 118 U/L (38-126) 11/11/23 14:11
C-Reactive Protein 25.10 mg/L (0.0-10.00) H 11/12/23 07:10
Most recent labs reviewed.
Micro Results:
11/11/23 23:36 Blood Culture - Preliminary
Blood/Venous No Growth in 24 hours- Final report to follow
11/11/23 23:31 Blood Culture - Preliminary
Blood/Venous No Growth in 24 hours- Final report to follow
11/12/23 05:24 C. difficile GDH Antigen & Toxins - Final
Feces/Stool Negative for toxigenic C.difficile
- Final
Negative for Norovirus GI and GII.
11/12/23 MRI LLE: Large amount of intramedullary signal abnormality in the LEFT FIFTH METATARSAL SHAFT suspicious for ACUTE OSTEOMYELITIS. If there are no signs/symptoms of infection, postoperative edema or severe stress reaction would be alternative
diagnostic possibilities.
2. � 1.0 cm rim-enhancing fluid collection adjacent to the distal fifth metatarsal shaft suspicious for a small abscess. A small postoperative seroma is an alternative diagnostic possibility if there are no signs/symptoms of infection.
3. � Severe enhancing soft tissue edema around the fifth metatarsal shaft which could be secondary to myositis or postoperative edema.
--- NOTE | 2023-11-13 11:41 | W.PN.HOSP.TC ---
Today's Communication/Plan
-
PT eval
CT and xray pending
monitor POC
Adjust bp meds
Assessment / Plan
Assessment / Plan
A/P:� Patient is a 63y M with PMH significant for DM-II and prior L 5th MT amputation who presents to ED complaining of swelling and redness of the L foot since last PM.
Left Foot cellulitis
h/o Left 5th MT Amputation
�- s/p vanc/zosyn
�- X-rays done in the ED show indistinct margin of the remaining 5th MT - suspicious for osteomyelitis.
�- MR of left foot -noted.
- Podiatry/ID evaluated and not concern for Osteomyelitis.
- On IV cefazolin and can be switch to keflex on dc per ID recs.
- Blood culture negative so far.
DM-II, Uncontrolled
�- Poor glucose control which sounds chronic by patient history.
�- Current insulin regimen is atypical with once daily 70/30 or similar.
�- Adjust regimen as needed for improved control.
�- Update A1C elevated at 14.1
- started on insulin 70/30 regimen of 20units BID
- DM CORRECTIONAL SUBSTANCE ABUSE COUNSELOR consulted.
Pseudohyponatremia
�- Secondary to the above hyperglycemia
Headache likely 2/2 tension/MSK
-ice pack
-tylenol prn
-Check CT head
-no neurological deficit
Left shoulder/para scapular pain
-CT cervical pending
-Xray LUE pending
Benign Hypertension
�- BP elevated
�- Will give dose of amlodipine now. Added losartan 25mg
�- Continue outpatient regimen and adjust as needed for BP control.
Anxiety / Depression
�- Stable.� Continue bupropion.
�- Continue Ativan, but change to PRN.
Lumbar Spine Disease
Severe Peripheral Neuropathy
�- Stable / unchanged.
�- Patient has no neuropathic pain - but significant lack of sensation.
�- Continue gabapentin.
DVT Prophylaxis:� Lovenox
Code Status:� Full
Anticipated Discharge: Within 24 hours
Subjective/Interval History
-
Date of Service: November 13, 2023
afebrile
states of fall at home
denies hitting his head or loss of consciousness
states of L shoulder pain
Objective Data
-
Labs:
Laboratory Results
11/13/23
06:58
WBC 7.4
Hgb 11.1 L
Hct 32.3 L
Plt Count 266
Sodium 137
Potassium 3.9
Chloride 103
Carbon Dioxide 23
BUN 27 H
Creatinine 1.5 H
Glucose 198 H
Calcium 9.0
Vital Signs:
Vital Signs
Temp Pulse Resp BP Pulse Ox
97.8 F 90 16 176/102 97
11/13/23 07:35 11/13/23 07:40 11/13/23 07:35 11/13/23 07:40 11/13/23 07:35
I&O
11/12/23 11/13/23 11/14/23
06:59 06:59 06:59
Intake Total 960 / 960
Balance 960 / 960
Physical Exam
-
General: Well Developed and No Apparent Distress
HEENT: Normocephalic, Atraumatic and Moist Mucous Membranes
Respiratory: Clear to Auscultation
Cardiac: Regular Rhythm and S1/S2; Negative Murmur, Rub or Gallop
GI: Soft, Nontender, Nondistended and Normal Bowel Sounds; Negative Organomegaly
Rectal: Deferred by Provider
Musculoskeletal: No Clubbing, No Cyanosis, No Edema and Other (TTP at left parascapular area. )
Skin: Other (L lateral foot with crusted lesion at distal aspect of the 5th MT / prior surgical site. Mild dorsal erythema and localized edema with some increased warmth. No tenderness / sensation.); Negative Rash
Neuro: Awake, Alert, Oriented, AO x 3, No Motor Deficits and Nonfocal/Grossly Intact
Psych: Calm
Data Reviewed
-
Total Time Spent with Patient (in minutes): 55
[2023-11-13 11:52] LABS: Glucose - Point of Care 254 mg/dl (70-99)
[2023-11-13] MEDS: COZAAR 25 MG PO (12:11)
[2023-11-13] MEDS: NOVOLOG FLEXPEN-LOW RESISTANCE 3 UNITS SC ×2 (12:11→16:25)
[2023-11-13] MEDS: ZOFRAN 4 MG IV ×2 (12:11→22:16)
[2023-11-13 14:15] VITALS: BP 163/92; PULSE 92
[2023-11-13 15:39] VITALS: BP 163/93
[2023-11-13 16:32] LABS: Glucose - Point of Care 277 mg/dl (70-99)
--- NOTE | 2023-11-13 16:46 | CM ---
CM following re: d/c planning
Chart reviewed
CM met with patient at bedside; IA completed
Pt resides with his brother in a 2[address] with 2STE
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
Pt has past VN hx with [facility], has been to [facility] for rehab, and has a r/w & spc for use as needed
Pt confirms prescription coverage and rx's are filled at [facility]
Pt PCP-Dr. Nik Duncan
Per PT eval. post d/c recommendation is for outpatient PT
CM will continue to follow patient progress and assist with needs at d/c as indicated
PLAN; CM following for needs
[2023-11-13] MEDS: LOVENOX 40 MG SC (16:59)
[2023-11-13 21:15] LABS: Glucose - Point of Care 290 mg/dl (70-99)
[2023-11-13 22:39] VITALS: BP 171/90
[2023-11-14 03:45] VITALS: BP 171/91
[2023-11-14] MEDS: ULTRAM 25 MG PO (04:05)
[2023-11-14 04:23] VITALS: BMI 22.8
[2023-11-14] MEDS: ANCEF 10 IV ×2 (05:24→14:13)
[2023-11-14 05:45] LABS: % Basophils 0.6 % (0-2); % Eosinophils 3.4 % (0-6); % Immature Granulocytes 0.8 % (0-0.5); % Lymphocytes 25.3 % (20.5-51.1); % Monocytes 6.9 % (1.7-9.3); Absolute Eosinophils 0.2 10^3/uL (0-0.7); Absolute Immature Granulocytes 0.1 10^3/uL (0-0.05); Absolute Lymphocytes 1.6 10^3/uL (1.2-3.4); Absolute Monocytes 0.4 10^3/uL (0.1-0.6); Absolute Neutrophils 3.9 10^3/uL (1.4-6.5); Hematocrit 32.6 % (39.0-52.0); Hemoglobin 11.4 g/dL (13.0-18.0); Mean Corpuscular Hgb 30.1 pg (27.0-31.0); Mean Platelet Volume 8.9 fL (7.4-10.4); Nucleated Red Blood Cells % 0 % (-); Platelet Count 259 10^3/uL (130-400); Red Blood Cell Count 3.79 10^6/uL (4.70-6.10); Red Cell Dist. Width 12.8 % (11.5-14.5); White Blood Cell Count 6.3 10^3/uL (4.8-10.8)
[2023-11-14 06:07] LABS: Troponin I < 0.012 ng/ml
[2023-11-14 06:08] LABS: Blood Urea Nitrogen 27 mg/dl (9-20); Calcium 8.9 mg/dl (8.4-10.2); Carbon Dioxide 27 mmol/L (22-30); Chloride 104 mmol/L (98-107); Estimated Creatinine Clearance 54 ml/min; Glucose 231 mg/dl (70-99); Potassium 4.4 mmol/L (3.5-5.1); Sodium 136 mmol/L (135-145); eGFR 48.41
[2023-11-14 07:15] LABS: Glucose - Point of Care 216 mg/dl (70-99)
[2023-11-14 07:15] LABS: Glucose - Point of Care 232 mg/dl (70-99)
[2023-11-14 07:31] VITALS: BP 170/87
--- NOTE | 2023-11-14 07:42 | PN.DE.MGMTRT ---
Insulin Management
- -
11/12/2023: Diabetes Management Consult
63 year old male admitted with left foot swelling and redness. PMH includes: HTN, Severe Peripheral Neuropathy, CKD III, Lumbar DDD, Anxiety /Depression and T2DM, Admitted with glucose of 543, current A1C 14.1%. Pt is not a good historian, states he
takes 70/30 insulin but does not take a standard dose, he reports taking 70/30 on a SS, ~ 5-20 units in the morning and no other insulin or diabetes medications, although last admission he was taking NPH once a day with Reg insulin SS.
He is currently ordered Lantus 12 units @HS and corrective insulin, with a FBG of 309 and premeal range of 315 to 391.
Will start 70/30 20 units BID, 1st does now. Cont low corrective
Will follow and adjust further as necessary.
11/13/2023 Diabetes Management Follow up
70/30 BID started yesterday. Glucose 178 and 211 pre lunch and dinner but 74 @ hs. Will follow glucose today for further needed adjustments. May require lower dose with dinner. He states he has a glucose monitor. He would like to see an
a r specialist. Will provide information for Dr. Ruiz.
11/14/2023 Diabetes management Follow up
Patient received 20 units 70/30 BID yesterday, glucose range 193 to 277. Will increase 70/30 novolog to 24 units BID first dose this AM. Will follow for further needed adjustments.
Diabetes History
- -
Type of Diabetes: 2 requiring insulin
Pre-Admission Diabetes Regimen
11/13/23 11/14/23
06:58 05:31
Creatinine 1.5 H 1.6 H
Lab Results
Hemoglobin A1c 14.1 % (4.0-5.6) H 11/12/23 07:10
Insulin Pump Settings
IP Diabetes Regimen
11/13/23 11/13/23 11/13/23
06:58 11:50 16:23
Glucose 198 H
POC Glucose 254 H 277 H
11/13/23 11/14/23 11/14/23
21:14 05:11 05:31
Glucose 231 H
POC Glucose 290 H 216 H
11/14/23
07:13
Glucose
POC Glucose 232 H
Meal type: Lunch
Meal type: Breakfast
Amount consumed: 100%
Amount consumed: 70%
Patient Education
[2023-11-14] MEDS: NOVOLOG MIX 70/30 FLEXPEN 24 UNITS SC (08:37)
[2023-11-14] MEDS: ZOFRAN 4 MG IV (08:38)
[2023-11-14] MEDS: NOVOLOG FLEXPEN-LOW RESISTANCE 2 UNITS SC ×2 (08:38→12:27)
[2023-11-14] MEDS: VISBIOME 1 CAP PO (08:39)
[2023-11-14] MEDS: NEURONTIN 400 MG PO (08:39)
[2023-11-14] MEDS: PERCOCET 5/325 1 TABLET PO (08:40)
[2023-11-14] MEDS: COZAAR 25 MG PO ×2 (08:40→11:29)
[2023-11-14] MEDS: LOW STRENGTH ASPIRIN 81 MG PO (08:41)
[2023-11-14] MEDS: WELLBUTRIN SR (12 hour sustained release) 150 MG PO (08:41)
[2023-11-14] MEDS: NORVASC 10 MG PO (08:41)
--- NOTE | 2023-11-14 09:28 | PN.CDI ---
CDI
- -
CDI:
Physician Documentation Request
Admit Date: 11/11/23 21:58
Dear Doctor Nicole,
Patient presented to ED reporting 'he saw his inside tester 3 days ago and had callus shaved off sloughing, cleaning and debriding of at site of previously amputated left 5th toe. Last night noted redness around the site......Patient also states 'my
sugars have been all over the place.' Anywhere from 100-500 blood sugars at home.'
Patient found to have left foot cellulitis and progress notes state 'DM-II, Uncontrolled'
Please clarify if a relationship exist between these conditions:
Yes, cellulitis is related to/associated with/due to diabetes.
No, cellulitis is not related to/associated with/due to diabetes
Unable to determine
Use of terms such as suspected, likely, concern for, or probable (associated with a specific diagnosis that is being evaluated, monitored, or treated as if it exists) are acceptable and can be coded in the inpatient setting, when documented at the
time of discharge.
Thank you,
Clari Isaac RN, BSN
CDI Specialist
tiger text
Please use your independent medical judgment in providing your response.
[2023-11-14] MEDS: DULCOLAX 10 MG PO (10:28)
--- NOTE | 2023-11-14 10:43 | W.PN.POD ---
Today's Communication
Today's Communication
Patient stable per podiatry
Assessment / Plan
-
LT foot cellultis - resolved well
Diabetic neuropathy
LT 5th metatarsal distal aspect with reactive bone changes / acute osteomyelitic changes per MRI - does not correlate well with clinical exam, i would
Non compliance with Bg maintenance and shoe gear etc.
Plan : IV abx per ID
Reviewed Xays and MRI report , since clinically there is no acute changes , Will cont to monitor the foot closely and treat cellultis .
Will follow him in the office wkly
no surgical plans by podiatry
Subjective
Chief Complaint
LT foot diabetic foot infection
Subjective
Pt seen at bedside, doing well, no new complaints offered, no fever, chills, resolved redness to LT foot, Denies any pain in LT foot
Objective
Temp Pulse Resp BP Pulse Ox
97.9 F 91 18 170/87 97
11/14/23 07:31 11/14/23 07:31 11/14/23 07:31 11/14/23 07:31 11/14/23 07:31
11/14/23 05:31
11/14/23 05:31
Vital Signs and Lab results were reviewed.
Palpable pedal pulses b/l feet both DP and PT are palpable
Loss of protective sensation b/l feet
LT lateral foot resolved erythema, no drainage, no open ulcerations noted, no Signs of any crepitus felt
no Signs of any abscess felt, no red streaking up the foot.
Presence of keratotic skin LT lateral foot at the previous 5th met head amputation site
--- NOTE | 2023-11-14 11:10 | W.PN.POD ---
Today's Communication
Today's Communication
PT is stable per podiatry to discharge
Assessment / Plan
-
LT foot cellultis - resolved well
Diabetic neuropathy
LT 5th metatarsal distal aspect with reactive bone changes / acute osteomyelitic changes per MRI - does not correlate well with clinical exam, i would think it is more of a stress reaction than infectious process
Non compliance with Bg maintenance and shoe gear etc.
Plan : abx per ID
Reviewed Xays and MRI report , since clinically there is no acute changes , Will cont to monitor the foot closely .
Will follow him in the office next Monday 11/20
PT can ambulate with surgical shoe to LT foot as tolerated
Subjective
Objective
Temp Pulse Resp BP Pulse Ox
97.9 F 91 18 170/87 97
11/14/23 07:31 11/14/23 07:31 11/14/23 07:31 11/14/23 07:31 11/14/23 07:31
11/14/23 05:31
11/14/23 05:31
Vital Signs and Lab results were reviewed.
--- NOTE | 2023-11-14 11:20 | W.PN.HOSP.TC ---
Addendum entered and electronically signed by Indio Rivera MD 11/14/23 13:54:
Reevaluated the patient. Patient looks comfortable. On the phone. No complaints. Explained to him that CAT scan results.
Agree with discharge planning.
More than 30 minutes spent in discharge including
Final examination of the patient
Summarizing hospital stay
Instructions for continuing care to all relevant caregivers
Preparation of discharge records, prescriptions, and referral forms
Total time spent (in minutes): 45
Addendum entered and electronically signed by Indio Rivera MD 11/14/23 11:25:
Cellulitis not likely due to uncontrolled diabetes
Original Note:
Today's Communication/Plan
-
Uptitration of insulin
Bowel regimen
DC later today
Blood pressure meds adjusted
Assessment / Plan
Assessment / Plan
A/P:� Patient is a 63y M with PMH significant for DM-II and prior L 5th MT amputation who presents to ED complaining of swelling and redness of the L foot since last PM.
Left Foot cellulitis likely secondary noncompliance in the setting of hyperglycemia
h/o Left 5th MT Amputation
�- s/p vanc/zosyn
�- X-rays done in the ED show indistinct margin of the remaining 5th MT - suspicious for osteomyelitis.
�- MR of left foot -noted.
- Podiatry/ID evaluated and not concern for Osteomyelitis.
- On IV cefazolin and can be switch to keflex on dc per ID recs.
- Blood culture negative so far. Remains afebrile.
- Discussed with podiatry and stress reaction. Continue with outpatient follow-up. No surgical intervention required.
DM-II, Uncontrolled likely secondary noncompliance
�- Poor glucose control which sounds chronic by patient history.
�- Current insulin regimen is atypical with once daily 70/30 or similar.
�- Adjust regimen as needed for improved control.
�- Update A1C elevated at 14.1
- started on insulin 70/30 regimen of 24units BID
- DM SOCIAL DIRECTOR consulted.
Pseudohyponatremia
�- Secondary to the above hyperglycemia
Headache likely 2/2 tension/MSK
-ice pack
-tylenol prn
-Check CT head
-no neurological deficit
Left upper extremity tingling consistent with C7 dermatome
-CT cervical noted with C5-C6 and C6-C7 with cervical myelopathy
-Xray LUE negative for fractures
-Continue with gabapentin and wellbutrin should help with neuropathic pain
-Physical therapy
-Outpatient neurosurgical evaluation
Benign Hypertension
�- BP elevated
�- Will give dose of amlodipine now. Added losartan increased dose to 50 mg
�- Continue outpatient regimen and adjust as needed for BP control.
Anxiety / Depression
�- Stable.� Continue bupropion.
�- Continue Ativan, but change to PRN.
Lumbar Spine Disease
Severe Peripheral Neuropathy
�- Stable / unchanged.
�- Patient has no neuropathic pain - but significant lack of sensation.
�- Continue gabapentin.
DVT Prophylaxis:� Lovenox
Code Status:� Full
Anticipated Discharge: Today
Subjective/Interval History
-
Date of Service: November 14, 2023
Denies any left substernal chest pain or discomfort
no chest pain with exertion
no shortness of breath
Objective Data
-
Labs:
Laboratory Results
11/14/23
05:31
WBC 6.3
Hgb 11.4 L
Hct 32.6 L
Plt Count 259
Sodium 136
Potassium 4.4
Chloride 104
Carbon Dioxide 27
BUN 27 H
Creatinine 1.6 H
Glucose 231 H
Calcium 8.9
Vital Signs:
Vital Signs
Temp Pulse Resp BP Pulse Ox
97.9 F 91 18 170/87 97
11/14/23 07:31 11/14/23 07:31 11/14/23 07:31 11/14/23 07:31 11/14/23 07:31
I&O
11/13/23 11/14/23 11/15/23
06:59 06:59 06:59
Intake Total 960 / 960 1680 / 1680
Output Total 250 / 250
Balance 960 / 960 1430 / 1430
Data Reviewed
-
Total Time Spent with Patient (in minutes): 55
[2023-11-14 12:11] LABS: Glucose - Point of Care 219 mg/dl (70-99)
--- NOTE | 2023-11-14 13:51 | W.PN.ID1 ---
Date of Service
Date of Service: November 14, 2023
Today's Communication
From ID standpoint can dc home on cephalexin 1000mg po tid x 7 more days.
Assessment / Plan
# Acute left foot cellulitis, resolving
-hx of left 5th toe extensive infection s/p TMA (2021)
- MRI LLE reports 1 cm abscess and osteo of 5th MT shaft.
However, pt without open wounds for contiguous spread of infection. Imaging does not correlate clinically.
- Treating as cellulitis which is significantly improving on IV cefazolin.
- From ID standpoint can dc home on cephalexin 1000mg po tid x 7 more days.
# Poorly controlled DM with severe neuropathy.
-Discussed importance of tight glucose control.
#Additional Past Medical History:
DM2
Peripheral Neuropathy
Hypertension
CKD III
Anxiety / Depression
Lumbar DDD s/p discectomy, lumbar fusion with HW
Lumbar revision with rhizotomy
Cholecystectomy
Left 5th toe TMA
Chief Complaint
-: Cellulitis
Subjective / Review of Systems
No complaints.
Vital Signs / Physical Exam
Vital Signs
Vital Signs
Temp Pulse Resp BP Pulse Ox
97.9 F 93 18 154/86 97
11/14/23 07:31 11/14/23 11:29 11/14/23 07:31 11/14/23 11:29 11/14/23 08:00
Physical Exam
Constitutional: No Acute Distress and Comfortable
Extremities: Other (left foot erythema/edema resolving. )
Objective Data
Lab Data
Lab Results
11/14/23 05:31
11/14/23 05:31
Estimated Creat Clear 54 ml/min 11/14/23 05:31
Total Bilirubin 0.6 mg/dl (0.2-1.3) 11/11/23 14:11
AST 14 U/L (17-59) L 11/11/23 14:11
ALT 13 U/L (0-50) 11/11/23 14:11
Alkaline Phosphatase 118 U/L (38-126) 11/11/23 14:11
C-Reactive Protein 25.10 mg/L (0.0-10.00) H 11/12/23 07:10
Most recent labs reviewed.
Micro Results:
11/11/23 23:36 Blood Culture - Preliminary
Blood/Venous No Growth in 48 hours- Final report to follow
11/11/23 23:31 Blood Culture - Preliminary
Blood/Venous No Growth in 48 hours- Final report to follow
11/12/23 05:24 C. difficile GDH Antigen & Toxins - Final
Feces/Stool Negative for toxigenic C.difficile
- Final
Negative for Norovirus GI and GII.
11/12/23 MRI LLE: Large amount of intramedullary signal abnormality in the LEFT FIFTH METATARSAL SHAFT suspicious for ACUTE OSTEOMYELITIS. If there are no signs/symptoms of infection, postoperative edema or severe stress reaction would be alternative
diagnostic possibilities.
2. � 1.0 cm rim-enhancing fluid collection adjacent to the distal fifth metatarsal shaft suspicious for a small abscess. A small postoperative seroma is an alternative diagnostic possibility if there are no signs/symptoms of infection.
3. � Severe enhancing soft tissue edema around the fifth metatarsal shaft which could be secondary to myositis or postoperative edema.
--- NOTE | 2023-11-14 13:55 | W.DCSUMMARY ---
Discharge Summary
Discharge Data
Date of Admission: 11/11/23
Date of Discharge: 11/14/23
-
Pending Results: No
Hospital Course
�63y M with PMH significant for DM-II, hypertension, anxiety, depression, chronic diabetic neuropathy, lumbar spinal disease status post surgery, and prior L 5th MT amputation who presents to ED complaining of swelling and redness of the L foot.
X-rays done in the ED show indistinct margin of the remaining 5th MT - suspicious for osteomyelitis. Left 5th metatarsal distal aspect with reactive bone changes / acute osteomyelitic changes per MRI. Patient exam not clinical with concern for bone
infection. ID was consulted. Broad-spectrum antibiotics with Vanco and Zosyn was discontinued. Cefazolin was started. Seems patient with left foot cellulitis and was transitioned to p.o. Keflex on discharge. Patient also with uncontrolled
glucose and was found to have a A1c of 14. 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 Patient was counseled multiple times to be compliant with insulin regimen. Patient was kept on his home regimen of 70/30 however dose was slowly uptitrated 24 units to twice
daily. Patient also stated of mechanical fall at home and underwent left upper extremity x-ray which was negative. Patient with CT of the head which was also negative. Patient CT of the cervical spine which showed cervical spondylosis with mild
C5-C6 and C6 6 7 with stenosis. Patient already on Neurontin and bupropion should help with neuropathic pain. Physical therapy evaluated patient and OP PT. Patient was also found to have uncontrolled hypertension and cozaar was slowly started
dose was increased to 50 mg and home dose of Norvasc continued. Podiatry evaluated patient and recommended to continue antibiotics and outpatient follow-up. Patient was monitored and blood sugar stabilized. Patient was recommended follow-up with
neurosurgery if no improvement and cervical pain with neurosurgery. Patient however not too keen and hesitant as not good experiences with spinal surgery in the past. Recommended close primary care follow-up.
Discharge Plan
-
Patient Disposition: Home (Routine Discharge)
Discharge Diagnosis/Procedures: Left foot cellulitis
Diabetes mellitus uncontrolled
Left shoulder pain secondary musculoskeletal secondary to fall
Pseudohyponatremia
Primary hypertension uncontrolled
Condition: Fair
Diet: 2 Gram Sodium and Diabetic, Carb Controlled
Activity: With assistance and As tolerated
Other Services: PT and OT
Activity Restrictions/Additional Instructions:
If no improvement in neck discomfort/pain recommend to see neurosurgery.
Referrals:
Rosa Isela Jordan MD [Active] - None (Cervical spondylolysis and mild spinal stenosis.)
Nik Dumont MD [Family Provider] - in less than 1 week (Follow-up for diabetes and blood pressure management)
Corrine Valenzuela DPM [Specified Professional Personl] - 11/21/23
Prescriptions:
New
losartan 50 mg Tablet
50 mg PO DAILY 30 Days Qty: 30 0RF
insulin asp prt-insulin aspart [Novolog Mix 70-30FlexPen U-100] 100 unit/mL (70-30) Insulin Pen
24 unit SC BID@0800,1700 Qty: 5 0RF
(DME) pen needle, diabetic [BD Ultra-Fine Trisha Pen Needle] 32 gauge x 5/32' Needle
Qty: 60 0RF
Rx Instructions:
BID
cephalexin 500 mg capsule
1,000 mg PO TID 6 Days Qty: 36 0RF
Continued
acetaminophen 500 mg Tablet
500 mg PO Q6HPRN PRN (Reason: mild pain)
amlodipine 10 mg Tablet
10 mg PO DAILY 30 Days Qty: 30 0RF
aspirin 81 mg Tablet,Chewable
81 mg PO DAILY 30 Days Qty: 30 0RF
gabapentin 400 mg capsule
400 mg PO BID Qty: 60 0RF
Visbiome 112.5 billion cell Capsule
1 cap PO DAILY
lorazepam 1 mg tablet
1 mg PO TID
bupropion HCl [Wellbutrin SR] 150 mg Tablet Sustained-Release 12 Hr
150 mg PO BID
Discharge Orders:
Discharge Patient (As Directed); Ordered 11/14/23
Ordered By: Indio Rivera
[2023-11-14] MEDS: FLUZONE QUAD 2023-2024 SYRINGE 0.5 ML IM (14:12)
--- NOTE | 2023-11-14 16:18 | PTCARENOTE ---
Pts insulin prescription will not be ready till tomorrow. Pt has 70/30 at home instructed to take 24units tonight and 22 units of new script tomorrow and BID going forward, pt verbalized understanding instructed to monitor bs for hypoglycemia,
verbalized understanding
--- NOTE | 2023-11-14 16:43 | PTCARENOTE ---
Flat surgical shoe given to pt at discharge per podiatry recommendation. Shoe tried on to make sure proper fit
--- NOTE | 2023-11-14 17:11 | CM ---
CM following re: d/c planning
Chart reviewed
Pt is medically stable for d/c
IMM reviewed and copy provided
Post d/c recommendation is for outpatient therapy; pt provided with script
CM provided the outpatient therapy phone number to patient to set up visits
Pt states he drove to the hospital and will drive self home
No additional d/c needs to note
PLAN; d/c home with outpatient PT
== END 2023-11-14 16:21 | disposition home or self-care (01) | DRG 603 ==
LOC: 4 EAST ACU 21:58
PROVIDERS: Registered Nurse; ADMITTING PHYSICIAN Hospitalist; ATTENDING PHYSICIAN Hospitalist; CONSULT PHYSICIAN Internal Medicine Infectious Disease; CONSULT PHYSICIAN Podiatrist Foot & Ankle Surgery; EMERGENCY PHYSICIAN Emergency Medicine; FAMILY PHYSICIAN Internal Medicine
PROC: 3E02340 Introduction of Influenza Vaccine into Muscle, Percutaneous Approach (ICD-10-PCS; 2023-11-14)
DX: L03.116 Cellulitis of left lower limb (principal); M86.9 Osteomyelitis, unspecified; E11.69 Type 2 diabetes mellitus with other specified complication; E11.40 Type 2 diabetes mellitus with diabetic neuropathy, unspecified; E11.65 Type 2 diabetes mellitus with hyperglycemia; E11.22 Type 2 diabetes mellitus with diabetic chronic kidney disease; N18.30 Chronic kidney disease, stage 3 unspecified; M25.512 Pain in left shoulder; W19.XXXA Unspecified fall, initial encounter; Y93.9 Activity, unspecified; Y92.009 Unspecified place in unspecified non-institutional (private) residence as the place of occurrence of the external cause; G44.209 Tension-type headache, unspecified, not intractable; I12.9 Hypertensive chronic kidney disease with stage 1 through stage 4 chronic kidney disease, or unspecified chronic kidney disease; F41.9 Anxiety disorder, unspecified; M51.36 Other intervertebral disc degeneration, lumbar region; F32.A Depression, unspecified; Z79.4 Long term (current) use of insulin; Z79.82 Long term (current) use of aspirin; Z91.199 Patient's noncompliance with other medical treatment and regimen due to unspecified reason; M47.812 Spondylosis without myelopathy or radiculopathy, cervical region; Z23 Encounter for immunization
CPT/HCPCS: 70450; 72125; 73030; 73130; 73630; 73720; 80048; 80053; 82010; 82962; 83036; 84484; 85025; 85027; 86140; 86803; 87040; 87324; 87449; 87798; 90686; 93005; 96361; 96365; 96372; 97162; 99285; A9575; G0008

== ENCOUNTER 2023-12-13 10:25 | Outpatient (RCR) | payer MEDICARE, OTHER, SELFPAY | END 2023-12-13 23:59 | disposition home or self-care (01) | LOC: RPT 10:25 | PROVIDERS: ATTENDING PHYSICIAN Internal Medicine | DX: M48.02 Spinal stenosis, cervical region (principal); G62.9 Polyneuropathy, unspecified; R29.3 Abnormal posture; Z73.6 Limitation of activities due to disability | CPT/HCPCS: 97112; 97163 ==

== ENCOUNTER 2024-01-14 12:57 | Outpatient (RCR) | payer MEDICARE, OTHER, SELFPAY | END 2024-01-14 23:59 | disposition home or self-care (01) | LOC: RPT 12:57 | PROVIDERS: ATTENDING PHYSICIAN Internal Medicine | DX: M48.02 Spinal stenosis, cervical region (principal); G62.9 Polyneuropathy, unspecified; R29.3 Abnormal posture; Z73.6 Limitation of activities due to disability | CPT/HCPCS: 97010; 97110; 97112; 97140 ==

== ENCOUNTER 2024-02-15 14:57 | Outpatient (RCR) | payer MEDICARE, OTHER, SELFPAY | END 2024-02-15 23:59 | disposition home or self-care (01) | LOC: RPT 14:57 | PROVIDERS: ATTENDING PHYSICIAN Internal Medicine | DX: M48.02 Spinal stenosis, cervical region (principal); G62.9 Polyneuropathy, unspecified; R26.2 Difficulty in walking, not elsewhere classified; R29.3 Abnormal posture; Z73.6 Limitation of activities due to disability | CPT/HCPCS: 97010; 97110; 97112; 97140 ==

== ENCOUNTER 2024-02-18 13:19 | Outpatient (RCR) | payer MEDICARE, OTHER, SELFPAY | END 2024-02-18 23:59 | disposition home or self-care (01) | LOC: RPT 13:19 | PROVIDERS: ATTENDING PHYSICIAN Internal Medicine | DX: M48.02 Spinal stenosis, cervical region (principal); G62.9 Polyneuropathy, unspecified; Z73.6 Limitation of activities due to disability; R29.3 Abnormal posture; R26.2 Difficulty in walking, not elsewhere classified; M62.81 Muscle weakness (generalized) | CPT/HCPCS: 97010; 97110; 97140; 97530 ==

== ENCOUNTER 2024-07-09 21:55 | Inpatient (IN) | payer MEDICARE, OTHER, SELFPAY ==
[2024-07-09] VITALS (8 sets, daily range): BP systolic 156–177; BP diastolic 70–87; BMI 23.3
--- NOTE | 2024-07-09 18:16 | ED.GENMED ---
History of Present Illness
General
Chief Complaint: Musculo-Skeletal Complaint
Source: patient
Exam Limitations: none
Time Seen by Provider: 07/09/24 17:31
Nursing documentation reviewed up to this point in time: agreed with
History of Present Illness
History of Present Illness:
Patient is a 63-year-old male with history diabetes presenting to the emergency department for worsening left foot wound. Patient reports history of foot wound on left foot requiring amputation of left fifth toe 2 years ago. Patient states that 2
days ago a new wound appeared near amputation site. Today patient states that redness seem to spread across his foot. Patient was seen by the principal systems architect which he follows with regularly and sent to the emergency department for IV antibiotics. He
does have neuropathy of both of his feet. Ambulating without difficulty. Patient reports frequent chills. Patient denies any known fever. Patient has felt mildly nauseous, as well.
Patient does follow with wound care. Wound seems much worse today.
Patient does report associated chills. In addition�patient reports bilateral lower extremity swelling, cough, exertional dyspnea over the past month. His PCP was concerned for possible bronchitis.
Past History
Past History
ED Past Medical History: HTN, IDDM, Psychiatric (Anxiety) and Other (Low back pain)
ED Past Surgical History: Orthopedic (Back surgeries) and Other (Amputation left fifth toe)
Social History
Tobacco: Non-smoker
Alcohol: Occasional
Personal:
Living: other (Resides with brother )
Employment: Disabled
Family History
Family History: Other (Noncontributory)
Review of Systems
Review of Systems
Allergies reviewed?: Yes
All Other Systems: ROS reviewed and negative except as documented in HPI and ROS
Phy Exam
Physical Exam
Physical Exam:
Vitals: Hypertensive, otherwise vital signs stable. Afebrile
General: Patient is well appearing, no acute distress
Skin: Wound to left lateral foot near amputation site of fifth toe with erythema extending to second toe and up to midfoot.
Head: Normocephalic, atraumatic
Eyes: Sclera nonicteric. EOMs intact. No nystagmus.
Throat: Protecting airway
Neck: Normal ROM, no cervical spine tenderness, no meningismus
Cardiac: Regular rate and rhythm, no murmurs.
Pulm: In no apparent respiratory distress. Oxygen saturation 98 on room air. Mild crackles at bases, otherwise lungs clear to auscultation.
Abdomen: Abdomen soft no abdominal tenderness.
Extremities: 1+ bilateral pitting edema. Wound to left foot as described above. Palpable DP/PT pulses bilaterally.
Neuro: AAOx3. CN II-XII intact. No focal neurologic deficits.
Psychiatric: Normal affect.
Course
Orders/Labs/Results
Orders:
Orders
07/09/24 Dinner
2000 calorie (17 carb) Diabetic
At Your Request: Non-Participating
Does patient need a safe tray?: No
Diabetic Diet: Potassium, 2 Gram
Sodium, 2 Gram
07/09/24 18:02
Electrocardiogram (*1) Urgent
Reason for Study: Shortness of Breath
EKG- Treatment ONCE
CR Chest - 2 Views Urgent
Comment:
Reason For Exam: shortness of breath
07/09/24 18:07
CR Toe(s) Min 2 Vw Right Urgent
Comment:
Reason For Exam: wound left lateral foot
Indicate Which Toe:: Fifth
07/09/24 18:18
Piperacillin/Tazo 3.375 Gram [Zosyn] 3.375 gram in 50 ml IV NOW
07/09/24 18:23
COVID-19 Antigen Urgent
Source: Nasal Swab
CRP [C-Reactive Protein] Urgent
Complete Blood Count/With Diff Urgent
Comprehensive Metabolic Panel Urgent
ESR [Erythrocyte Sed Rate] Urgent
NT-proBNP Urgent
Troponin I Urgent
Influenza A+B Rapid Molecular Urgent
JOSEFA Source: Nasal Swab
Specimen Description:
Wound Culture [Wound/Abscess/Other Culture] Urgent
JOSEFA Source: Foot
Specimen Description: Left
Date Specimen was Collected: 07/09/24
Time Specimen was Collected: 18:15
07/09/24 19:19
Vancomycin [Vancocin] 1,500 mg 0.9% Sodium Chloride [Nss] 20 ml 0.9% Sodium Chloride 250 ml [Nss] 250 ml IV NOW
07/09/24 19:29
0.9% Sodium Chloride 1000 ml [Nss] 1,000 ml IV BOLUS
07/09/24 19:30
Add On- LAB Urgent
Tests Added?: blood culture
07/09/24 19:38
Lactic Acid Urgent
Blood Culture Urgent
JOSEFA Source: Blood/Venous
Specimen Description:
Blood Culture Urgent
JOSEFA Source: Blood/Venous
Specimen Description:
07/09/24 19:46
Pantoprazole [Protonix IV] 40 mg IV NOW STA
07/09/24 21:25
Admit/Transfer Patient As Directed
Co-Sign Provider:
Level of Care: Inpatient admission
Assign to:: Medical/Surgical
Physician / Group: Tutu Wynn
Diagnosis: Foot infection/osteomylitis
Reason for Hospitalization: Foot infection/osteomyelitis
Expected length of stay greater than two midnights?: Yes
ELOS- Estimated Length of Stay in days: 3
I certify the patient meets the requirements for IP care: Yes
07/09/24 21:26
PRN Pain Medication Management As Directed
May give lesser potent ordered pain med per pt: Yes
preference::
Protocol:: Medication orders for pain may be administered in a
manner that supports deferring to patient preference
when the pt is:
- Requesting an ordered lesser potent pain medication.
Least to most potent pain medications are defined
as: acetaminophen < NSAID < tramadol < opioids
(morphine, oxycodone, hydromorphone).
- Requesting a lesser dose of the same medication IF
ORDERED.
- Requesting a less intrusive route of administration
if both routes are prescribed by the provider (PO <
IV).
07/09/24 21:29
Code Status As Directed
Resuscitation Status: Full Code
07/09/24 21:40
Sodium Bicarbonate 50 meq IV NOW STA
07/09/24 22:00
Flush (0.9% Sodium Chloride) [Flush (Nss)] See Dose Instructions IV PER PROTOCOL
07/09/24 23:18
Acetaminophen [Tylenol] 650 mg PO Q4HPRN PRN
Dextrose 50%-Water [Dextrose 50% Syringe] 12.5 grams IV [id number] PRN
Glucagon [GlucaGen] 1 mg IM PRN PRN
Ipratropium/Albuterol Sulfate [Duoneb] 3 ml INH R Q4HPRN PRN
Lorazepam [Ativan] 1 mg PO TID
Ondansetron Injectable [Zofran] 4 mg IV Q6HPRN PRN
VANCOMYCIN Pharmacy to Dose [VANCOCIN Pharmacy to Dose] 1 each Pharmacy To Prepare [Call Pharmacy To Prepare] 0 ml IV PER PROTOCOL
07/09/24 23:18
Echo 2D MMode Color/Doppler Routine
Reason for Study: BNP 58482/CHF
MR Left Le No Joint With Routine
Comment:
Reason For Exam: osteomylitis
Recent pill cam endoscopy?: No
Activity As Directed
Activity Level: With Assistance
Bedside Glucose Monitoring As Directed
Frequency: AC&HS
Additional Instructions:: Change to q6h if pt on TPN, tube feeding or not eating
Vital Signs As Directed
Frequency: Per unit guidelines
US Peripheral Arterial [US Periph Art LOWER Ext w TALIA] Routine
Comment:
Reason For Exam: lower extremity wound
DX Deep Vein Thrombosis Video Routine
07/10/24 06:00
Basic Metabolic Panel IN AM
Complete Blood Count/No Diff IN AM
Hemoglobin A1c [Glycohemoglobin (HgbA1c)] IN AM
07/10/24 07:30
Insulin Aspart Corrective Low [Novolog Flexpen-Low Resistance] See Protocol SC AC
07/10/24 08:00
Bupropion(12Hr)Sustain Release [WELLBUTRIN SR (12 hour sustained release)] 150 mg PO BID
Carvedilol [Coreg] 12.5 mg PO BID
Gabapentin [Neurontin] 300 mg PO BID
Heparin 5,000 units SC Q12
Lactobac/Bifidobac [Visbiome] 1 cap PO DAILY
07/11/24 06:00
Basic Metabolic Panel IN AM
Complete Blood Count/No Diff IN AM
07/12/24 06:00
Basic Metabolic Panel IN AM
Complete Blood Count/No Diff IN AM
Abnormal Lab Results
07/09/24 07/09/24
18:23 19:38
RBC 3.28 L 10^6/uL
(4.70-6.10)
Hgb 9.4 L g/dL
(13.0-18.0)
Hct 28.5 L %
(39.0-52.0)
Abs Immat Gran (auto) 0.1 H 10^3/uL
(0-0.05)
Absolute Lymphs (auto) 0.5 L 10^3/uL
(1.2-3.4)
Absolute Monos (auto) 0.8 H 10^3/uL
(0.1-0.6)
Immature Gran % 0.9 H %
(0-0.5)
Neutrophils % 80.9 H %
(42.2-75.2)
Lymphocytes % 6.4 L %
(20.5-51.1)
Monocytes % 9.6 H %
(1.7-9.3)
ESR 93 H mm/hour
(0-20)
Potassium 5.2 H mmol/L
(3.5-5.1)
Chloride 111 H mmol/L
(98-107)
Carbon Dioxide 15 L mmol/L
(22-30)
BUN 44 H mg/dl
(9-20)
Creatinine 2.3 H mg/dL
(0.7-1.3)
Glucose 136 H mg/dl
(70-99)
Lactic Acid 0.5 L mmol/L
(0.7-2.0)
ALT 56 H U/L
(0-50)
Alkaline Phosphatase 402 H U/L
(38-126)
C-Reactive Protein 63.10 H mg/L
(0.0-10.00)
Albumin 3.4 L g/dl
(3.5-5.0)
07/09/24 18:23
07/09/24 18:23
Vital Signs
Temp: 99.8 F
Initial and Last Documented VS:
Initial Vital Signs
Temp Pulse Resp BP Pulse Ox
98.6 F 85 20 159/76 98
07/09/24 16:48 07/09/24 16:48 07/09/24 16:48 07/09/24 16:48 07/09/24 16:48
Last Documented Vital Signs
Temp Pulse Resp BP Pulse Ox
98.2 F 91 16 172/74 97
07/09/24 22:57 07/09/24 23:55 07/09/24 22:57 07/09/24 23:55 07/09/24 22:57
MDM/Problems Addressed
Differential Diagnosis Includes:
Not limited to: Cellulitis, diabetic foot infection, osteomyelitis, dependent edema, CHF, bronchitis, etc.
MDM/Problems Addressed:
61-year-old male with history of diabetes presenting with new wound to left lateral foot and concern for worsening cellulitis. Sent by podiatry for IV antibiotics. Patient reports chills, no known fever. Did have some nausea/vomiting-although
possibly posttussive in nature. Patient does report dyspnea on exertion, bilateral lower extremity swelling over the past few months. Patient with history of diabetic foot wound to left foot requiring fifth toe amputation. Patient's vital signs
are stable. Temp of 99.8F. Physical exam as above. Open wound to left lateral foot with cellulitis of left foot. There is 1+ pitting edema bilateral lower extremities. Heart regular rate and rhythm. Patient is in no apparent respiratory
distress, not hypoxic. Workup was initiated including basic labs, lactic, inflammatory markers. Viral swabs, troponin, proBNP ordered. X-rays of both chest x-ray and left toe ordered. Patient will need to be admitted for IV antibiotics. Will
initiate IV Vanco/Zosyn given diabetic foot infection pending lab work.
Update: Labs reviewed. No leukocytosis. Anemia with hemoglobin of 9.4 which is mildly decreased from prior. Does appear to have acute on chronic renal insufficiency with elevation in creatinine to 2.3. Patient has a metabolic acidosis likely
secondary to infection. Lactic acid normal. Inflammatory markers increased. [place]al [place] [address]. Troponin is normal. Chest x-ray does not show any evidence of pulmonary edema. X-ray of toe does show findings
concerning for possible osteomyelitis of left fourth digit.
Patient will require admission for diabetic foot wound of left foot with concern for osteomyelitis. Patient will likely require MRI inpatient. Although patient does appear mildly fluid overloaded on exam�given acute on chronic renal insufficiency
and no evidence of pulmonary edema/hypoxia will avoid diuresis at this time. Patient will be admitted for further monitoring. Admitted to hospitalist in stable condition
Chronic conditions affecting care:
Diabetes
Acute Exacerbation and/or Progression of Chronic Illness:
Diabetic foot infection, acute on chronic renal insufficiency
*Radiology
Radiology exam reviewed: preliminary read by ED provider and radiology read reviewed (Findings cyst with possible osteomyelitis of left fourth digit)
*Pulse Oximetry
Patient hypoxic: no
*EKG
Interpreted by ED Provider?: Yes
EKG Intrepretation Date: 07/09/24
Heart Rate: 87
Rate: normal
Rhythm: sinus
QRS Pattern: normal QRS
Ischemia: non-specific ST changes
*Brush Holder Assembler Interpretation
Rate: normal
Interpretation: normal
Heart Rate: 80
Rhythm: sinus
*Critical Care Note
Total Time (30-74mins, 75-104mins- exclusive of procedures): Not Applicable
Patient Management
Discussion with other providers: Hospitalist
Escalation/DeEscalation of care consider admission/obs:
Admit for IV antibiotics, possible MRI to rule out osteomyelitis.
ED Attending Note
-
Portions of this chart may have been created with voice recognition software.� Occasional wrong word or��sound alike� substitutions may have occurred due to the inherent limitations of voice recognition software.
Discharge Plan
Departure
Patient Disposition: Admit
Date of Disposition: 07/09/24
Time of Disposition: 19:31
Presentation/result/management discussed w/ accepting MD/DO: Hospitalist
Discharge Problem:
Diabetic infection of left foot, Acute on chronic renal insufficiency
Interventions
Interventions:
*Risk Screen - Suicide Last Done: 07/09/24 23:02
*General Assessment Last Done: 07/09/24 16:48
*Neglect/Abuse Screening Last Done: 07/09/24 16:48
*ED COVID-19 Vaccine History Last Done: 07/09/24 23:02
*Nursing Disposition Last Done: 07/09/24 22:55
ED-Musculoskeletal Assessment Last Done: 07/09/24 18:33
Discharge Date and Time
Discharge Date/Time: 07/09/24 22:55
[2024-07-09] MEDS: ZOSYN 50 IV ×2 (18:40→23:44)
[2024-07-09 18:57] LABS: % Basophils 0.4 % (0-2); % Eosinophils 1.8 % (0-6); % Immature Granulocytes 0.9 % (0-0.5); % Lymphocytes 6.4 % (20.5-51.1); % Monocytes 9.6 % (1.7-9.3); % Neutrophils 80.9 % (42.2-75.2); Absolute Eosinophils 0.1 10^3/uL (0-0.7); Absolute Immature Granulocytes 0.1 10^3/uL (0-0.05); Absolute Lymphocytes 0.5 10^3/uL (1.2-3.4); Absolute Monocytes 0.8 10^3/uL (0.1-0.6); Absolute Neutrophils 6.3 10^3/uL (1.4-6.5); Hematocrit 28.5 % (39.0-52.0); Hemoglobin 9.4 g/dL (13.0-18.0); Mean Corpuscular Hgb 28.7 pg (27.0-31.0); Mean Corpuscular Volume 86.9 fL (80.0-94.0); Mean Platelet Volume 9.5 fL (7.4-10.4); Nucleated Red Blood Cells % 0 % (-); Platelet Count 287 10^3/uL (130-400); Red Blood Cell Count 3.28 10^6/uL (4.70-6.10); Red Cell Dist. Width 14.5 % (11.5-14.5); White Blood Cell Count 7.8 10^3/uL (4.8-10.8)
[2024-07-09 19:10] LABS: Erythrocyte Sed Rate 93 mm/hour (0-20)
[2024-07-09 19:15] LABS: COVID-19 Antigen Negative (Negative)
[2024-07-09 19:17] LABS: ALT (SGPT) 56 U/L (0-50); AST (SGOT) 31 U/L (17-59); Albumin 3.4 g/dl (3.5-5.0); Alkaline Phosphatase 402 U/L (38-126); Blood Urea Nitrogen 44 mg/dl (9-20); Calcium 8.5 mg/dl (8.4-10.2); Carbon Dioxide 15 mmol/L (22-30); Chloride 111 mmol/L (98-107); Estimated Creatinine Clearance 40 ml/min; Glucose 136 mg/dl (70-99); Potassium 5.2 mmol/L (3.5-5.1); Sodium 141 mmol/L (135-145); Total Bilirubin 0.7 mg/dl (0.2-1.3); Total Protein 6.9 g/dl (6.3-8.2); eGFR 31.32
[2024-07-09 19:22] LABS: NT-proBNP 21200 pg/ml; Troponin I < 0.012 ng/ml
[2024-07-09] MEDS: PROTONIX IV 40 MG IV (19:49)
[2024-07-09] MEDS: VANCOCIN 300 ML IV (19:49)
[2024-07-09] MEDS: VANCOCIN 300 MG IV (19:49)
[2024-07-09 20:03] LABS: Lactic Acid 0.5 mmol/L (0.7-2.0)
--- NOTE | 2024-07-09 20:26 | HPS.HSE ---
Family Physician
-
Family Physician: Nik Dumont
Chief Complaint
-
Left foot redness and edema
History of Present Illness
Patient is a 63-year-old male with past medical history significant for DM II,and hypertension, who presented to [facility] ED for evaluation by recommendation of his concrete laborer. Patient states that infection he noticed begin yesterday, he
noticed that a area to lateral left foot split opened when he said drained with blood and was mixed with some pus. He stated he had a schedule appointment with his concrete laborer today and when she saw him she requested he come to the ED for evaluation
and treatment with IV antibiotics. Patient denies any fever, chills, constipation, diarrhea, or urinary symptoms. He states that he has had some recent shortness of breath, with and without exertion, dry cough and just today some nausea and emesis
with significant reflux while here in ED.
Medical History
Past Medical History
Past Medical History: Reports Other
Additional Past Medical History:
DM II
Hypertension
Lumbar DDD
Peripheral Neuropathy
Anxiety
Depression
Past Surgical History: Reports Other
Additional Past Surgical History:
Lumbar discectomy with fusion
Cholecystectomy
Left foot 5th metatarsal amputation
Social History
Tobacco: Non-smoker
Alcohol: None
Drug: None
Personal: Single
Living: With Family
Employment: Retired
Family History
Family History: Not pertinent
Allergies / Home Medications
Allergies reflects when Allergies were last updated in [employer].
Home Medications with original date entered in [employer]
Allergy/Medication List:
Allergies
Allergy/AdvReac Type Severity Reaction Status Date / Time
No Known Allergies Allergy Verified 07/09/24 16:52
Home Medications
acetaminophen 500 mg tablet 500 mg PO Q6HPRN PRN mild pain 03/26/22
Lactobac no.2-Bifidobac no.1-S. thermo 112.5 billion cell capsule (Visbiome) 1 cap PO DAILY Supplement 11/11/23
bupropion HCl 150 mg tablet,12 hr sustained-release (Wellbutrin SR) 150 mg PO BID Depression 11/11/23
lorazepam 1 mg tablet 1 mg PO TID Anxiety 11/11/23
albuterol sulfate 90 mcg/actuation aerosol inhaler 2 puff inhalation R Q6HPRN PRN sob 07/09/24
carvedilol 3.125 mg tablet 3.125 mg PO BID 07/09/24
gabapentin 300 mg capsule 300 mg PO BID 07/09/24
insulin lispro protamine-lispro 100 unit/mL (75-25) subcutaneous pen (Humalog Mix 75-25 KwikPen) 0 unit SC BID 07/09/24
lisinopril 40 mg tablet 40 mg PO DAILY 07/09/24
Review of Systems
-
Constitutional: Reports No Symptoms
EENT: Reports No Symptoms
Respiratory: Reports Cough and Trouble Breathing (dyspnea with and without exertion)
Cardiac: Reports No Symptoms
Abdomen/GI: Reports No Symptoms
: Reports No Symptoms
Musculoskeletal: Reports Other (lateral left foot wound )
Skin: Reports No Symptoms
Neurological: Reports No Symptoms
Endocrine: Reports No Symptoms
Hematologic/Lymphatic: Reports No Symptoms
Psych: Reports No Symptoms
Physical Exam
Vital Signs
Vital Signs
Temp Pulse Resp BP Pulse Ox
99.8 F 87 31 167/75 91
07/09/24 19:11 07/09/24 19:00 07/09/24 19:00 07/09/24 19:00 07/09/24 19:00
Physical Exam
General: Well Developed, Well Nourished, No Apparent Distress, Comfortable and Conversant
HEENT: NormoCephalic, Moist mucous membranes, Atraumatic, [place] Conjunctivae, Nose Appears Normal and Ears Appear Normal
Respiratory: Clear and Non Labored Respirations; No Wheezes, Rales, Rhonchi or Crackles
Cardiac: S1/S2 and Regular Rhythm; No Murmur, Rub or Gallop
Breast: Deferred by me
GI: Soft, Non Tender, Non Distended and Normal Bowel Sounds; No Organomegaly
Rectal: Deferred by Provider
Genito-urinary: Deferred by me
Musculoskeletal: No Clubbing, No Cyanosis and No Edema
Skin: Warm and IV/Catheter Site; No Rash
Neuro: Awake, Alert, AO x 3 and Nonfocal/grossly intact
Hematologic/Lymphatic: No Lymphadenopathy
Psych: Calm and Intact Judgment/Insight
Laboratory Results
-
07/09/24 18:23
07/09/24 18:23
Laboratory Results
Lactic Acid 0.5 mmol/L (0.7-2.0) L 07/09/24 19:38
Total Bilirubin 0.7 mg/dl (0.2-1.3) 07/09/24 18:23
AST 31 U/L (17-59) 07/09/24 18:23
ALT 56 U/L (0-50) H 07/09/24 18:23
Alkaline Phosphatase 402 U/L (38-126) H 07/09/24 18:23
Troponin I < 0.012 ng/ml 07/09/24 18:23
Data Reviewed
-
Diagnostic Radiology: Report Reviewed by me (CXR: No acute cardiopulmonary abnormality. Toe: may represent osteomyelitis.)
Medical Tests (Nuc Med, Echo, EKG etc): Report Reviewed by me (EKG: NORMAL SINUS RHYTHM)
Lab Data: Labs Reviewed by me (K+ 5.2, )
Impression/Plan
-
IMPRESSION/PLAN:
#Left foot infection
- Toe x-ray: Postoperative changes of distal fifth metatarsal and phalanx amputation. There is a soft tissue defect along the lateral aspect of the forefoot. There is an erosion along the lateral aspect of the fourth metatarsal head which is new
from prior radiograph in 2021 and may represent osteomyelitis.
- blood culture/wound culture pending
- IV Vanco and Zosyn
- Consult ID
- Consult Podiatry
- Check MRI with contrast
#DM II likely uncontrolled
#Peripheral Neuropathy
- Accuchecks AC & HS with SSI
- Check Hgb A1C
- continue gabapentin
#Hypertension
- hold lisinopril
- increase Carvedilol to 12.5mg
- monitor blood pressure
#IVY/CKD/hypokalemia
- due to DM and likely congestive heart failure
- monitor BMP
- Amp Bicarb
- Consult Nephrology
#bronchitis vs. congestive heart failure
- CXR: No acute cardiopulmonary abnormality.
- BNP 04264
- patient with dyspnea on exertion, and dry cough
- PRN DuoNebs
- PRN Tessalon Perles
- obtain Echo
#GERD
- Protonix BID
- PRN zofran
#Anxiety
#Depression
- continue bupropion, lorazepam
#Lumbar DDD
Full Code
DVT Px: Sq Heparin
--- NOTE | 2024-07-09 21:23 | W.PN.UPDATE ---
Update Note
Progress Note Update
This is an addendum to the H&P written by Lizeth Benítez on 07/09/2024. Patient seen and examined independently with SNOW BLOWER.
63-year-old male past medical history of diabetes, diabetic neuropathy, prior osteomyelitis of left fifth toe status post amputation 2 years ago, hypertension, anxiety, CKD, anxiety/depression, presenting with infection of the amputation site over
the past 2 months for which he has been receiving debridements from podiatry. Over the past day there has been discharge of purulent material from the site. He denies fevers or chills.
Toe x-ray shows changes concerning for osteomyelitis/diabetic foot infection with recent uncontrolled diabetes. Check MRI of the foot. Wound culture, blood cultured sent. Vancomycin/Zosyn. Check arterial ultrasound. Podiatry consulted. ID
consulted.
Patient also with shortness of breath the past 2 months with exertional dyspnea and dry cough. He was diagnosed with bronchitis and prescribed Z-Gunnar and Medrol Dosepak over the past week but has not received them. DuoNebs as needed and Tessalon.
Could be component of JOSE inhibitor related cough as well.
He has some vomiting secondary to cough. Also complains of acid reflux. Zofran as needed and Protonix daily.
Patient also with IVY on CKD and hyperkalemia, metabolic acidosis likely secondary to diabetic nephropathy. Hold lisinopril. Nephrology consulted. Give bicarb push. Patient also with hypertension so increase Coreg to compensate for stopping
lisinopril.
He has bilateral lower extremity edema. Cardiac BNP of 21,000. There is concern for potential heart failure however hesitant to diurese given IVY. Check echocardiogram.
He is on minimal insulin therapy. Insulin sliding scale. Check hemoglobin A1c.
[2024-07-09] MEDS: SODIUM BICARBONATE 50 MEQ IV (22:09)
[2024-07-09] MEDS: ATIVAN 1 MG PO (23:44)
[2024-07-09] MEDS: COREG 12.5 MG PO (23:55)
[2024-07-10] MEDS: ZOSYN 50 IV ×3 (05:15→17:01)
[2024-07-10 05:36] VITALS: BMI 23.3
[2024-07-10 07:07] LABS: Hematocrit 24.5 % (39.0-52.0); Hemoglobin 8.1 g/dL (13.0-18.0); Mean Corp Hgb Conc. 33.1 g/dL (33.0-37.0); Mean Corpuscular Hgb 28.5 pg (27.0-31.0); Mean Corpuscular Volume 86.3 fL (80.0-94.0); Mean Platelet Volume 10.3 fL (7.4-10.4); Platelet Count 270 10^3/uL (130-400); Red Blood Cell Count 2.84 10^6/uL (4.70-6.10); Red Cell Dist. Width 14.6 % (11.5-14.5); White Blood Cell Count 6.9 10^3/uL (4.8-10.8)
[2024-07-10 07:11] LABS: Blood Urea Nitrogen 41 mg/dl (9-20); Calcium 8.2 mg/dl (8.4-10.2); Carbon Dioxide 18 mmol/L (22-30); Chloride 114 mmol/L (98-107); Estimated Creatinine Clearance 38 ml/min; Glucose 111 mg/dl (70-99); Potassium 4.9 mmol/L (3.5-5.1); Sodium 143 mmol/L (135-145); eGFR 29.76
[2024-07-10 07:15] VITALS: BP 155/74
[2024-07-10 07:26] LABS: Glucose - Point of Care 118 mg/dl (70-99)
[2024-07-10] MEDS: NOVOLOG FLEXPEN-LOW RESISTANCE SC (07:27)
[2024-07-10 08:52] LABS: Glycohemoglobin (HgbA1c) 5.7 % (4.0-5.6)
--- NOTE | 2024-07-10 09:01 | PHA.VAN.IN ---
Assessment
- Assessment
Renal Function: Appears elevated from baseline (SCR 2.4 vs 1.5-1.7 earlier this year)
Concomitant Antimicrobials: piperacillin/tazobactam
Plan
- Plan
Initial / Loading Dose: Vanc 1500mg - 07/09 19:49
Maintenance Regimen: dosing by level - give 750mg x1 today since did not receive full load
Monitorin/25 0600
Pharmacokinetics Vancomycin I
- -
Patient Age: 63
Patient Sex: Male
Vancomycin Day #: 1
Indication: [facility]
Requesting Provider: Marely Benítez
Pertinent Antimicrobial Allergies:
NKDA
Height / Weight:
Height 6 ft 3 in
Actual Weight 84.55 kg
Pertinent Past Medical History: DM II, CKD
- Vital Signs / Lab Results
Temp Pulse Resp BP Pulse Ox
98.7 F 78 18 155/74 95
07/10/24 07:15 07/10/24 07:15 07/10/24 07:15 07/10/24 07:15 07/10/24 07:15
Lab Results - Hematology
07/09/24 07/10/24
18:23 05:20
WBC 7.8 6.9
Lab Results - Chemistry
07/09/24 07/10/24
18:23 05:20
BUN 44 H 41 H
Creatinine 2.3 H 2.4 H
Estimated Creat Clear 40 38
Albumin 3.4 L
07/09/24
19:38
Lactic Acid 0.5 L
Microbiology Results
07/09/24 18:23 Influenza Types A & B (LAURA) - Final
Nasal Swab Negative for Influenza A & B, NAAT
Negative results must be combined with clinical observations
and patient history.
Nucleic Acid Amplification test (NAAT)performed on the
[employer] platform.
[2024-07-10] MEDS: HEPARIN 5000 UNITS SC ×2 (09:36→20:35)
[2024-07-10] MEDS: VISBIOME 1 CAP PO (09:36)
[2024-07-10] MEDS: COREG 3.125 MG PO ×2 (09:36→20:34)
[2024-07-10] MEDS: WELLBUTRIN SR (12 hour sustained release) 150 MG PO ×2 (09:36→20:34)
[2024-07-10] MEDS: NEURONTIN 300 MG PO ×2 (09:36→20:34)
[2024-07-10] MEDS: ATIVAN 1 MG PO ×3 (09:36→21:45)
--- NOTE | 2024-07-10 11:26 | W.CON.NEPH ---
Addendum entered and electronically signed by Gino Pascual DO 07/10/24 12:10:
Addendum to physical exam: Patient has both inspiratory and expiratory wheezing
Original Note:
Consultation
-
Date/Time Consultation Requested: 07/10/2024 7:00 AM
Date/Time Consultation Performed: 07/10/2024 1130
Requesting Provider: Dr. Segal
Performing Provider: Dr. Pascual
Reason for Consultation: Acute kidney injury /metabolic acidosis
Medical History
-
Chief Complaint: IVY/CKD/Metabolic Acidosis
History of Present Illness:
The patient is a 63-year-old male with a past medical history of chronic kidney disease who maintained a baseline creatinine of 1.6 from October 2023. He has a history of hypertension which has been controlled on the combinations of his carvedilol
and lisinopril. He has longstanding diabetes maintained chronically on insulin and has microvascular complications including diabetic neuropathy. The patient presented to [facility] ED for evaluation by recommendation of his heel splitter.
Patient states that infection he noticed begin yesterday, he noticed that a area to lateral left foot split opened when he said drained with blood and was mixed with some pus. He stated he had a schedule appointment with his heel splitter today and
when she saw him she requested he come to the ED for evaluation and treatment with IV antibiotics. Patient denies any fever, chills, constipation, diarrhea, or urinary symptoms. He states that he has had some recent shortness of breath, with and
without exertion, dry cough and just today some nausea and emesis with significant reflux while here in ED. on presentation to the emergency room he was notably edematous. On presentation he was noted to have a metabolic acidosis and his creatinine
is now elevated to 2.4 and nephrology was consulted for metabolic acidosis and acute on chronic kidney disease.
Past Medical History
DM II
Hypertension
CKD 3g (1.6)
Lumbar DDD
Peripheral Neuropathy
Anxiety
Depression
Past Surgical History: Reports Other
Additional Past Surgical History:
Lumbar discectomy with fusion
Cholecystectomy
Left foot 5th metatarsal amputation
Social History
Tobacco: Non-Smoker
Alcohol: None
Drug: None
Family History
no CKD
Family History: Not Pertinent
Allergies / Home Medications
Allergy/AdvReac Type Severity Reaction Status Date / Time
No Known Allergies Allergy Verified 07/09/24 16:52
�Medication �Instructions �Recorded �Confirmed �Type
acetaminophen 500 mg tablet 500 mg PO Q6HPRN PRN mild pain 03/26/22 07/09/24 History
Lactobac no.2-Bifidobac no.1-S. 1 cap PO DAILY Supplement 11/11/23 07/09/24 History
thermo 112.5 billion cell capsule
(Visbiome)
bupropion HCl 150 mg tablet,12 hr 150 mg PO BID Depression 11/11/23 07/09/24 History
sustained-release (Wellbutrin SR)
lorazepam 1 mg tablet 1 mg PO TID Anxiety 11/11/23 07/09/24 History
albuterol sulfate 90 mcg/actuation 2 puff inhalation R Q6HPRN PRN sob 07/09/24 07/09/24 History
aerosol inhaler
carvedilol 3.125 mg tablet 3.125 mg PO BID Blood Pressure 07/09/24 07/09/24 History
gabapentin 300 mg capsule 300 mg PO BID Neurological 07/09/24 07/09/24 History
Condition
insulin lispro protamine-lispro 0 unit SC BID Diabetes 07/09/24 07/09/24 History
100 unit/mL (75-25) subcutaneous
pen (Humalog Mix 75-25 KwikPen)
lisinopril 40 mg tablet 40 mg PO DAILY Blood Pressure 07/09/24 07/09/24 History
Review of Systems
-
History Source: Patient
All other systems: Negative unless noted
Respiratory: Trouble Breathing
Musculoskeletal: Edema and Other (Foot wound)
Skin: Other (Left lateral foot wound)
Neurological: Other (Neuropathy of lower extremity)
Physical Exam
Vital Signs
Vital Signs
Temp Pulse Resp BP Pulse Ox
98.7 F 78 18 155/74 95
07/10/24 07:15 07/10/24 07:15 07/10/24 07:15 07/10/24 07:15 07/10/24 07:15
Lab Results
07/10/24 05:20
07/10/24 05:20
WBC 6.9 10^3/uL (4.8-10.8) 07/10/24 05:20
RBC 2.84 10^6/uL (4.70-6.10) L 07/10/24 05:20
Hgb 8.1 g/dL (13.0-18.0) L 07/10/24 05:20
Hct 24.5 % (39.0-52.0) L 07/10/24 05:20
Plt Count 270 10^3/uL (130-400) 07/10/24 05:20
Sodium 143 mmol/L (135-145) 07/10/24 05:20
Potassium 4.9 mmol/L (3.5-5.1) 07/10/24 05:20
Chloride 114 mmol/L (98-107) H 07/10/24 05:20
Carbon Dioxide 18 mmol/L (22-30) L 07/10/24 05:20
BUN 41 mg/dl (9-20) H 07/10/24 05:20
Creatinine 2.4 mg/dL (0.7-1.3) H 07/10/24 05:20
eGFR 29.76 07/10/24 05:20
Glucose 111 mg/dl (70-99) H 07/10/24 05:20
Calcium 8.2 mg/dl (8.4-10.2) L 07/10/24 05:20
Ebc-L-Pnshufvoflz Pept 04170 pg/ml 07/09/24 18:23
Albumin 3.4 g/dl (3.5-5.0) L 07/09/24 18:23
Physical Exam
General: AOx3, Nontoxic , NAD
HEENT: PERRL, EOMI, Anicteric, Conjunctivae Clear, Ear/Nose Intact, Hearing Normal, Oropharynx Clear/Moist, Dentition Intact, Facial Symmetry, Neck Supple, Neck: Trachea Midline, No JVD and No Thyromegaly, no Bruits
Respiratory: Clear to auscultation bilaterally with normal lung exersion
Cardiac: S1/S2 and Regular Rate/Rhythm
Breast: Deferred by me
Abdomen: Soft, Nontender, Nondistended, Normal Bowel Sounds and No Hepatosplenomegaly
Rectal: Deferred by Provider
Genito-urinary: No Costovertebral Tenderness
Extremities: Left lateral foot wound, plus edema
Skin: No Rash or open lesions
Neuro: Neurosensory loss below the knees, CN II-XII (Intact) and Strength (Musculoskeletal exam 5 out of 5 both upper and lower extremities)
Hematologic/Lymphatic: No Cervical Lymphadenopathy, No Submandibular Lymphadenopathy and No Supraclavicular Lymphadenopathy
Psych: Mood/afflect pleasant, Insight/judgement good and Appropriate
Vascular: plus 2 pedal and radial pulses
Data Reviewed
-
Radiology: Image Personally Visualized and interpreted (Personally reviewed chest x-ray no evidence of congestive heart failure)
Medical Tests (Nuc Med, Echo etc): Report Reviewed by me (Echocardiogram reviewed: No evidence of gross LV dysfunction or valvular abnormalities)
Labs: Labs Reviewed by me ([facility])
Old Records: Reviewed (Reviewed previous old labs in the medical record 1.6 creatinine as of 11/14/2023)
Assessment/Plan
-
Impression:
Acute kidney injury
CKD stage IIIb baseline creatinine 1.6
Metabolic acidosis
Edema
Shortness of breath
Left Foot osteomyelitis
HTN
Plan:
IVY:
-Could be due to underlying evolving infection
-Hold JOSE inhibitor in setting of hypertension
-Vancomycin and Zosyn renally dosed for compromised GFR
-Check postvoid bladder scan
-Check kidney and bladder ultrasound
-Will initiate sodium bicarbonate tablets for metabolic acidosis which may be potentiating compensatory tachypnea
-UA to be obtained
[2024-07-10 12:02] LABS: Glucose - Point of Care 209 mg/dl (70-99)
[2024-07-10] MEDS: VANCOCIN 150 IV (12:21)
[2024-07-10] MEDS: NOVOLOG FLEXPEN-LOW RESISTANCE 2 UNITS SC (12:21)
--- NOTE | 2024-07-10 13:03 | W.PN.HOSP.TC ---
Today's Communication/Plan
-
Assessment / Plan
Assessment / Plan
Imaging
CXR
IMPRESSION:
No acute cardiopulmonary abnormality.
Toe Xray
IMPRESSION:
Postoperative changes of distal fifth metatarsal and phalanx amputation. There is a soft tissue defect along the lateral aspect of the forefoot. There is an erosion along the lateral aspect of the fourth metatarsal head which is new from prior
radiograph in 2021 and may represent osteomyelitis.
Mild degenerative changes of the first MTP.
Likely hammertoe deformities.
2d echo
CONCLUSIONS
1. Mild concentric LVH with EF 60-65%
2. Mild RVE
3. LAE
4. No evidence of significant valvular disease
Physical Exam
NAD, resting comfortably in bed
Scleral anicteric
Moist mucous membranes
No JVD
CTA bilateral
Normal S1-S2 no murmurs
Soft nontender nondistended bowel sounds active
No peripheral pitting edema
Moves extremities spontaneously
Left foot wrapped in bandage, dressing lateral portion with dried serosangerious draingage
AAOx3
Assessment and Plan
Diabetic foot infection diabetic foot infection
-Concern for osteo
-High ESR/CRP
-Xray with mali erosion
-MRI pending, not sure how valuable this will be as there is aleady evidence of osteo on imaging with high inflam markers
-Podiatry consulted
-Recieved vanc/zosyn
-ID consulted
-Will hold any further dosing of zosyn as he is not septic and this should improve yeild of culture datga
IVY
-Baseline cr 1.5-1.7, nonoligouric
-bladder scan
-monitor uop
-avoid nephrotoxins and hypotension
Metablic acidosis
-Related to renal failure
-Neph started bicarb tabs
HFpEF, EF 60-65%
-CXR and exam not consisted with HF
-Monitor volume status
-Will start low dose diuretic when renal function improves
Diabetes
-Accucehcks
-SSI
-BG 140-180
Anticipated Discharge: > 48 hours
Subjective/Interval History
-
Date of Service: July 10, 2024
Seen and examined. No new complaints. No acute overnight events per
Objective Data
-
Labs:
Laboratory Results
07/10/24
05:20
WBC 6.9
Hgb 8.1 L
Hct 24.5 L
Plt Count 270
Sodium 143
Potassium 4.9
Chloride 114 H
Carbon Dioxide 18 L
BUN 41 H
Creatinine 2.4 H
Glucose 111 H
Calcium 8.2 L
Vital Signs:
Vital Signs
Temp Pulse Resp BP Pulse Ox
98.7 F 78 18 155/74 95
07/10/24 07:15 07/10/24 07:15 07/10/24 07:15 07/10/24 07:15 07/10/24 07:15
I&O
07/09/24 07/10/24 07/11/24
06:59 06:59 06:59
Intake Total 240 / 240
Balance 240 / 240
[2024-07-10 13:26] LABS: Complement C3 136 mg/dl (88-165)
--- NOTE | 2024-07-10 13:45 | CON.ID ---
Consultation
-
Date/Time Consultation Requested: 07/09/2024 2318
Date/Time Consultation Performed: 07/10/2024 1345
Requesting Provider: Lizeth Benítez
Performing Provider: Dr. Camarillo
Reason for Consultation: Left foot infection
Chief Complaint / Past History
Chief Complaint
Left foot redness
History of Present Illness
Luis Meier is a 63-year-old man with a significant past medical history of type 2 diabetes and peripheral neuropathy being evaluated at the request of urgent normal in regards to a left foot infection. History obtained from chart review, along with
patient interview, and review of old records contained in the hospital EMR system.
The patient is known to the Infectious Diseases service, having been seen in earlier this year for a acute left foot cellulitis. The patient reports that he has been followed by Podiatry as an outpatient for care of a subfourth met ulceration. He
notes that the area has been healing, but over the past several days he noted some breakdown of the skin and new drainage on the lateral aspect of his left foot where his prior suture line was. He denies any fevers or chills, but notes that he is
always cold. He notes some left leg swelling which has been going on for the past week or so. He does admit to some erythema on the foot, though. He was seen by his visual effects artist on the day of admission and sent to the emergency room for further
care and workup.
In the ER, he was not found to have a leukocytosis, but MRI imaging has shown significant osteomyelitis in the fourth metatarsal. Podiatry has evaluated the patient and will be taking him tomorrow for biopsy and debridement.
Past History
Additional Past Medical History:
DM2
Peripheral Neuropathy
Hypertension
CKD III
Anxiety / Depression
Lumbar DDD
Additional Past Surgical History:
Lumbar discectomy, lumbar fusion with HW
Lumbar revision with rhizotomy
Cholecystectomy
Left 5th toe TMA
Allergy History:
No Known Allergies Allergy (Verified 07/09/24 16:52)
Medications Reviewed: Yes
Current Antibiotics:
Zosyn
Vancomycin
Social History
Tobacco: Non-Smoker
Alcohol: None
Drug: None
Employment: Retired
Family History
Family History: Not Pertinent
Review of Systems
Vital Signs
Temp Pulse Resp BP Pulse Ox
98.7 F 78 18 155/74 95
07/10/24 07:15 07/10/24 07:15 07/10/24 07:15 07/10/24 07:15 07/10/24 07:15
Physical Exam
Physical Exam
Constitutional: Comfortable, Chronically Ill, Non-toxic and Cachetic (mild)
Head: Other (Mild temporal wasting)
Eyes: Pupils Equal, Pupils Round, No Conjunctival Hemorrhage and Sclera Anicteric
Oral: No Thrush and No Ulcers
Cardiovascular: Regular Rate, S1/S2 and S3/S4
Pulmonary: Clear; Negative Wheezes, Rales or Rhonchi
Gastrointestinal: Non Tender and Distended
Extremities: Edema (LLE), Erythema (left foot) and Pulses; Negative Venous Insufficiency
Skin: Warm and Dry; Negative Rash or Jaundice
Neurological: Awake and Alert
Psychological: Calm
.
Lab / Diagnostic Study Results
07/10/24 05:20
07/10/24 05:20
Abs Immat Gran (auto) 0.1 10^3/uL (0-0.05) H 07/09/24 18:23
Absolute Neuts (auto) 6.3 10^3/uL (1.4-6.5) 07/09/24 18:23
Absolute Lymphs (auto) 0.5 10^3/uL (1.2-3.4) L 07/09/24 18:23
Absolute Monos (auto) 0.8 10^3/uL (0.1-0.6) H 07/09/24 18:23
Absolute Basos (auto) 0.0 10^3/uL (0-0.2) 07/09/24 18:23
Immature Gran % 0.9 % (0-0.5) H 07/09/24 18:23
Neutrophils % 80.9 % (42.2-75.2) H 07/09/24 18:23
Lymphocytes % 6.4 % (20.5-51.1) L 07/09/24 18:23
Monocytes % 9.6 % (1.7-9.3) H 07/09/24 18:
Eosinophils % 1.8 % (0-6) 07/09/24 18:
Basophils % 0.4 % (0-2) 07/09/24 18:23
ESR 93 mm/hour (0-20) H 07/09/24 18:23
Lactic Acid 0.5 mmol/L (0.7-2.0) L 07/09/24 19:38
C-Reactive Protein 63.10 mg/L (0.0-10.00) H 07/09/24 18:23
Microbiology Results
Micro:
07/09/24 18:23 Wound Culture - Pending
Foot - Left Gram Stain - Preliminary
07/10/24 00:02 MRSA Screen - Pending
Nose
07/09/24 19:38 Blood Culture - Pending
Blood/Venous
07/09/24 19:38 Blood Culture - Pending
Blood/Venous
07/09/24 18:23 Influenza Types A & B (LAURA) - Final
Nasal Swab Negative for Influenza A & B, NAAT
Negative results must be combined with clinical observations
and patient history.
Nucleic Acid Amplification test (NAAT)performed on the
[employer] platform.
Imaging:
07/10/2024 MRI left lower extremity: Rodney confluent osteomyelitis throughout the entire fourth metatarsal and majority of the fourth digit proximal phalanx. The fourth digit middle and distal phalanges demonstrate osteitis without rodney
osteomyelitis. There is a prominent ulceration along the lateral forefoot with underlying fluid tract and phlegmon/soft tissue abscess measuring up to 2.1 x 2.6 x 2.9 cm.
07/09/2024 X-ray left foot: There are postoperative changes of the distal fifth metatarsal and fifth toe amputation. A small soft tissue defect along the lateral aspect of the forefoot is noted. There is erosion of the fourth metatarsal head.
Mild degenerative changes of the first metatarsal phalangeal joint noted. There are likely hammertoe deformities. Erosions along the lateral aspect of the fourth metatarsal head are new from prior radiographs from 2021 and may represent
osteomyelitis. Please see full dictation for additional detail.
Assessment / Plan
Severe left foot skin and soft tissue infection with abscess
Left fourth metatarsal osteomyelitis.
DM2
Peripheral Neuropathy
Hypertension
CKD III
Anxiety / Depression
Lumbar DDD
Recommendations:
Continue with empiric antibiotics (vancomycin/Zosyn.)
Wound culture has been obtained. Will await further culture data to guide antimicrobial selection/de-escalation.
Case discussed with Podiatry. Patient will be going to OR tomorrow for I&D and debridement. Please send bone for culture and pathology.
Monitor white count and temperature curve.
Further recommendations as additional data is returned.
[2024-07-10 15:10] VITALS: BP 120/44
--- NOTE | 2024-07-10 15:56 | W.CS.POD ---
Consult Summary - Podiatry
-
63-year-old male known to me very well presented to the clinic yesterday with a swollen red draining left foot, patient has has bronchitis and fever and looked septic so I have asked him to get admitted to the hospital for management. Patient
states that his renal function has been also elevated and his blood work today patient seem to be improved left foot with slightly improved redness but still has a purulent drainage patient's left foot x-ray and MRI showing LT foot abscess and LT
4th metatarsal and proximal phalanx osteomyelitis to the left fourth metatarsal.
Exam : Left foot palpable DP and PT
Edema to the left foot and erythema noted. There is a purulent drainage from the left lateral foot ulceration.
There is some fluctuance he with possible abscess to the left lateral foot noted. There is no exposed bone from left foot.
Assessment and plan : Left foot cellulitis with abscess
Left fourth proximal phalanx and metatarsal osteomyelitis.
Diabetic neuropathy.
H/o of left foot 5th toe and distal metatarsal bone resection with multiple d�bridements
Poorly controlled diabetic
Plan: Continue antibiotics per ID
I have discussed with the patient about the incision and drainage along with debridement of bone from left fourth metatarsal will get intraoperative wound cultures along with the bone cultures
I have discussed all risks and complications of reinfection more proximal amputations more resections from the left foot no guarantees given to save his a limb or life, patient understands and agrees to proceed with the debridement left foot.
will schedule him for surgical debridement 07/11
patient for n.p.o. after breakfast.
Medical clearance per hospitalist service
[2024-07-10 16:36] LABS: Glucose - Point of Care 164 mg/dl (70-99)
[2024-07-10] MEDS: SODIUM BICARBONATE 650 MG PO ×2 (17:01→21:46)
[2024-07-10] MEDS: NOVOLOG FLEXPEN-LOW RESISTANCE 1 UNITS SC (17:01)
--- NOTE | 2024-07-10 17:02 | CM ---
Patient seen at bedside.
IA completed. Case management consult completed
Advanced directives packet given to patient.
DX: Foot infection
PMH: DM, diabetic neuropathy, H/o of left foot 5th toe and distal metatarsal bone resection with multiple d�bridements
Per note scheduled for debridement 07/11
Patient lives in a 2 story home with his brother, 1 step to enter & steps to second floor
PLOF: states he was independent not using assist device.
DME in home: walker, cane, grab bars in shower.
Has had [facility] in past, had SNF stay but did not recall facility
PCP: Nik Man
Pharmacy: [facility]
PLAN: Await PT eval.
[2024-07-10] MEDS: TYLENOL 650 MG PO (20:33)
[2024-07-10 20:57] LABS: Urine Albumin 2+ (Neg - Trace); Urine Bilirubin Negative (Negative); Urine Character Clear (Clear); Urine Color Yellow; Urine Glucose Trace (Negative); Urine Ketone Negative (Negative); Urine Leukocyte Negative (Negative); Urine Nitrite Negative (Negative); Urine Occult Blood 1+ (Negative); Urine Urobilinogen Negative (Neg - 1+)
[2024-07-10 21:20] LABS: Urine Squamous Cell 0-2 /LPF (Few)
[2024-07-10 21:21] LABS: Urine White Cell 0-2 /HPF (0-5)
[2024-07-10 21:22] LABS: Urine Granular Cast 0-2 /LPF (0)
[2024-07-10 21:23] LABS: Urine Bacteria Many (Negative)
[2024-07-10 21:24] LABS: Glucose - Point of Care 145 mg/dl (70-99)
[2024-07-10 21:42] LABS: Protein/creatinine Ratio 4.3; Urine Protein 342 mg/dl
[2024-07-10 23:02] VITALS: BP 155/88
[2024-07-11] MEDS: ZOSYN 50 IV ×5 (01:00→23:04)
[2024-07-11 05:33] VITALS: BMI 23.2
[2024-07-11 06:26] LABS: Hematocrit 26.3 % (39.0-52.0); Hemoglobin 8.4 g/dL (13.0-18.0); Mean Corp Hgb Conc. 31.9 g/dL (33.0-37.0); Mean Corpuscular Hgb 27.5 pg (27.0-31.0); Mean Corpuscular Volume 85.9 fL (80.0-94.0); Mean Platelet Volume 9.8 fL (7.4-10.4); Platelet Count 302 10^3/uL (130-400); Red Blood Cell Count 3.06 10^6/uL (4.70-6.10); Red Cell Dist. Width 14.6 % (11.5-14.5); White Blood Cell Count 5.9 10^3/uL (4.8-10.8)
[2024-07-11 06:39] LABS: Vancomycin Random 11.9 ug/ml
[2024-07-11 07:02] LABS: Blood Urea Nitrogen 35 mg/dl (9-20); Calcium 8.2 mg/dl (8.4-10.2); Carbon Dioxide 20 mmol/L (22-30); Chloride 111 mmol/L (98-107); Estimated Creatinine Clearance 40 ml/min; Glucose 125 mg/dl (70-99); Potassium 4.7 mmol/L (3.5-5.1); Sodium 142 mmol/L (135-145); eGFR 31.32
[2024-07-11 07:27] LABS: Glucose - Point of Care 134 mg/dl (70-99)
[2024-07-11 08:05] VITALS: BP 163/81
--- NOTE | 2024-07-11 08:10 | PHA.VAN.FU ---
Vancomycin Assessment / Plan
- Assessment
Renal Function: Stable
WBC's are: WNL
In the past 24 hrs, patient has been: Afebrile
Concomitant Antimicrobials: piperacillin / tazobactam
- Assessment - Therapeutic Drug Monitoring
Random Level: 11.9 - drawn ~17.5H after previous dose of 750mg
- Dosing Plan
Dosing by Level: Re-dose today (Vanc 1000mg)
- Monitoring Plan
Random Level: 07/12 06
- Follow Up
Pharmacy will continue to follow.
Vancomycin Follow UP
- -
Patient Age: 63
Patient Sex: Male
Vancomycin Day #: 2
Indication: [facility]
Requesting Provider: Marely Benítez / Marquise
Pertinent Antimicrobial Allergies:
NKDA
Height / Weight:
Height 6 ft 3 in
Actual Weight 84.232 kg
Pertinent Past Medical History: DM II, CKD
- Vital Signs / Lab Results
Temp Pulse Resp BP Pulse Ox
98.0 F 75 18 155/88 96
07/10/24 23:02 07/10/24 23:02 07/10/24 23:02 07/10/24 23:02 07/10/24 23:02
Lab Results - Hematology
07/09/24 07/10/24 07/11/24
18:23 05:20 05:59
WBC 7.8 6.9 5.9
Lab Results - Chemistry
07/09/24 07/10/24 07/11/24
18:23 05:20 05:59
BUN 44 H 41 H 35 H
Creatinine 2.3 H 2.4 H 2.3 H
Estimated Creat Clear 40 38 40
Albumin 3.4 L
07/09/24
19:38
Lactic Acid 0.5 L
Lab Results - Urine
07/10/24
20:48
Urine Nitrite Negative
Ur Leukocyte Esterase Negative
Urine WBC 0-2
Ur Squamous Epith Cells 0-2
Urine Bacteria Many A
Microbiology Results
07/09/24 19:38 Blood Culture - Preliminary
Blood/Venous No Growth in 24 hours- Final report to follow
07/09/24 19:38 Blood Culture - Preliminary
Blood/Venous No Growth in 24 hours- Final report to follow
07/09/24 18:23 Gram Stain - Preliminary
Foot - Left
07/09/24 18:23 Influenza Types A & B (LAURA) - Final
Nasal Swab Negative for Influenza A & B, NAAT
Negative results must be combined with clinical observations
and patient history.
Nucleic Acid Amplification test (NAAT)performed on the
[employer] platform.
Therapeutic Drug Monitoring
Random Vancomycin 11.9 ug/ml 07/11/24 05:59
[2024-07-11] MEDS: NOVOLOG FLEXPEN-LOW RESISTANCE SC ×3 (08:21→16:46)
[2024-07-11] MEDS: WELLBUTRIN SR (12 hour sustained release) 150 MG PO ×2 (08:22→19:51)
[2024-07-11] MEDS: NEURONTIN 300 MG PO ×2 (08:22→19:51)
[2024-07-11] MEDS: COREG 3.125 MG PO ×2 (08:22→11:17)
[2024-07-11] MEDS: VISBIOME 1 CAP PO (08:25)
[2024-07-11] MEDS: SODIUM BICARBONATE 650 MG PO ×3 (08:26→22:46)
[2024-07-11] MEDS: ATIVAN 1 MG PO ×3 (08:26→22:47)
[2024-07-11 08:40] LABS: Anti Streptolysin Negative (Negative)
--- NOTE | 2024-07-11 10:38 | CON.CAR ---
Addendum entered and electronically signed by Danya Nuñez MD 07/11/24 15:57:
I saw and examined the patient.
The MEDICAL WRITER's note was reviewed and I agree with the note.
Comment: Patient is a 63-year-old gent with hypertension, hyperlipidemia, diabetes, diabetic neuropathy and foot wound, we are asked to comment on his presurgical risk. He reports to me his had a cough for 2 months that is worse when he wakes up in
the morning it is not produced to about 6 sputum just a thin sputum. He thought it was allergies. He has noted increased swelling in his legs. He does have a wound in his legs and now needs an I&D/debridement with possible amputation. He does
not feel like he is short of breath, he only feels short of breath with coughing. He has good functional status except this has declined with the onset of his foot pain. On exam, he has a regular rate and rhythm with a normal S1-S2 no murmurs
gallops were appreciated lungs were clear to auscultation JVP was elevated at 12 cm of H2O while sitting up at 90 degrees, bilateral edema noted 1+ on the left 2+ on the right, labs are significant for markedly elevated proBNP. Creatinine is
elevated echocardiogram images personally reviewed, agree with report. Of note, E prime's severely decreased and IVC is dilated and does not collapse. Mitral inflow is consistent with stage II diastolic dysfunction. Overall, currently I believe
the patient is volume overloaded. I think this may be the source of his cough, and possibly his IVY. I would recommend diuresis. I would definitely want to optimize his volume status prior to proceeding to surgery. Once volume status is
optimized, then he can proceed to surgery as planned. He has adequate functional status and no chest pain. I am hopeful we can have him ready by Sunday. I will ask case management to mays out SGLT2 inhibitor. His blood pressure is poorly
controlled, we increased his beta-lobo.
Plans discussed with Dr. Segal, Dr. Martinez, Dr. Valenzuela
Original Note:
Consultation
Consultation Request
Date/Time Consultation Requested: 07/11/24 8:15a
Date/Time Consultation Performed: 07/11/24 10:15a
Requesting Provider: Dr. Segal
Performing Provider: KAYLA Thibodeaux for Dr. Nuñez
Reason for Consultation: pre-op risk assessment
Medical History
-
Chief Complaint: left foot ulcer with drainage
History of Present Illness:
Mr. Meier is a 63 yo male with HTN, DM, diabetic neuropathy, and left foot wound, who presented to the ER from podiatry office for drainage of left foot wound. Left foot MRI showed abscess and left 4th metatarsal and proximal phalanx osteomyelitis
to the left fourth metatarsal. He is admitted to the hospitalist service and we are consulted for pre-op risk assessment for wound I&D. He reports being diagnosed with bronchitis by PCP prior to hospitalization but didn't pick with the antibiotic
script before admission. He c/o coughing then feeling SOB after coughing only.
Past Medical History
Past Medical History: Other (as above)
Past Surgical History: Other (as above)
Allergies / Home Medications
Allergy/AdvReac Type Severity Reaction Status Date / Time
No Known Allergies Allergy Verified 07/09/24 16:52
�Medication �Instructions �Recorded �Confirmed �Type
acetaminophen 500 mg tablet 500 mg PO Q6HPRN PRN mild pain 03/26/22 07/09/24 History
Lactobac no.2-Bifidobac no.1-S. 1 cap PO DAILY Supplement 11/11/23 07/09/24 History
thermo 112.5 billion cell capsule
(Visbiome)
bupropion HCl 150 mg tablet,12 hr 150 mg PO BID Depression 11/11/23 07/09/24 History
sustained-release (Wellbutrin SR)
lorazepam 1 mg tablet 1 mg PO TID Anxiety 11/11/23 07/09/24 History
albuterol sulfate 90 mcg/actuation 2 puff inhalation R Q6HPRN PRN sob 07/09/24 07/09/24 History
aerosol inhaler
carvedilol 3.125 mg tablet 3.125 mg PO BID Blood Pressure 10/23/24 10/23/24 History
gabapentin 300 mg capsule 300 mg PO BID Neurological 07/09/24 07/09/24 History
Condition
insulin lispro protamine-lispro 0 unit SC BID Diabetes 07/09/24 07/09/24 History
100 unit/mL (75-25) subcutaneous
pen (Humalog Mix 75-25 KwikPen)
lisinopril 40 mg tablet 40 mg PO DAILY Blood Pressure 07/09/24 07/09/24 History
Review of Systems
-
History Source: Patient
All other systems: Negative unless noted
Physical Exam
Vital Signs
Temp Pulse Resp BP Pulse Ox
98.1 F 83 15 163/81 97
07/11/24 08:05 07/11/24 08:22 07/11/24 08:05 07/11/24 08:22 07/11/24 08:05
Lab Results
07/11/24 05:59
07/11/24 05:59
Troponin I < 0.012 ng/ml 07/09/24 18:23
Tlk-N-Xdsrqulpbhs Pept [id number] pg/ml 07/09/24 18:23
Impression / Plan
-
Pre-op risk assessment - left foot wound/abscess I&D today.
- he denies any exertional anginal symptoms.
- he is able to perform > 4 METS without cardiac symptoms.
- echo 07/10/24: mild concentric LVH with EF 60-65%, mild RVE, LAE, no evidence of significant valvular disease.
- EKG w/o ischemia.
- no further cardiac testing required prior to wound I&D today.
HTN - elevated BP.
- increase Coreg to 6.25mg BID and monitor.
- outpatient Lisinopril 40mg daily, held due to IVY.
Left foot abscess/cellulitis - IV ABX per ID.
- podiatry following and plan for wound/abscess I&D today.
IVY - acute.
- nephrology consulted.
Data Reviewed
-
EKG: Tracing Personally Visualized and interpreted (NSR 87 bpm)
Radiology: Report Reviewed by me (CXR: No acute cardiopulmonary abnormality)
MRI: Report Reviewed by me (Left foot MRI showed abscess and left 4th metatarsal and proximal phalanx osteomyelitis to the left fourth metatarsal)
Medical Tests (Nuc Med, Echo etc): Report Reviewed by me (echo 07/10/24: mild concentric LVH with EF 60-65%, mild RVE, LAE, no evidence of significant valvular disease.)
Labs: Labs Reviewed by me
Old Records: Reviewed
[2024-07-11 11:14] VITALS: BP 173/95
--- NOTE | 2024-07-11 12:04 | W.PN.HOSP.TC ---
Today's Communication/Plan
-
Assessment / Plan
Assessment / Plan
Imaging
CXR
IMPRESSION:
No acute cardiopulmonary abnormality.
Toe Xray
IMPRESSION:
Postoperative changes of distal fifth metatarsal and phalanx amputation. There is a soft tissue defect along the lateral aspect of the forefoot. There is an erosion along the lateral aspect of the fourth metatarsal head which is new from prior
radiograph in 2021 and may represent osteomyelitis.
Mild degenerative changes of the first MTP.
Likely hammertoe deformities.
2d echo
CONCLUSIONS
1. Mild concentric LVH with EF 60-65%
2. Mild RVE
3. LAE
4. No evidence of significant valvular disease
MRI
IMPRESSION:
Rodney confluent osteomyelitis throughout the entire fourth metatarsal and majority of the fourth digit proximal phalanx. The fourth digit middle and distal phalanges demonstrate osteitis without rodney osteomyelitis.
Osteitis throughout the third digit without rodney osteomyelitis.
Prominent ulceration along the lateral forefoot with underlying fluid tract and phlegmon/soft tissue abscess measuring up to 2.1 x 2.6 x 2.9 cm.
Renal Ultrasound
IMPRESSION:
Nonobstructing right renal calculus. No hydronephrosis, bilaterally. Bilateral renal cysts. Significant postvoid bladder residual.
TALIA
IMPRESSION: Normal ankle brachial indices on each side, and normal waveforms. No focal arterial stenosis demonstrated on either side.
Physical Exam
NAD, resting comfortably in bed
Scleral anicteric
Moist mucous membranes
No JVD
CTA bilateral
Normal S1-S2 no murmurs
Soft nontender nondistended bowel sounds active
No peripheral pitting edema
Moves extremities spontaneously
Left foot wrapped in bandage, dressing lateral portion with dried serosangerious draingage
AAOx3
Assessment and Plan
Diabetic foot infection diabetic foot infection
-Concern for osteo
-Wound cultrue growing MRSA, DC IVATb
-High ESR/CRP
-Xray with mali erosion
-MRI as above
-TALIA as above
-Podiatry following, planning for OR later today
-ID following
-Will hold any further dosing of zosyn as he is not septic and this should improve yeild of culture data
IVY
-Baseline cr 1.5-1.7, nonoligouric
-bladder scan
-monitor uop
-avoid nephrotoxins and hypotension
Metablic acidosis
-Related to renal failure
-Neph started bicarb tabs
HFpEF, EF 60-65%
-CXR and exam not consisted with HF
-Monitor volume status
-Will start low dose diuretic when renal function improves
Diabetes
-Accucehcks
-SSI
-BG 140-180
RCRI 2 (Cr >2, Insulin), Poole 1.1%, BERKLEY risk, METSs =4, ekg sr with nonspecific twave changes improved from previous
-Will have cards see
Anticipated Discharge: 24 - 48 hours
Subjective/Interval History
-
Date of Service: July 11, 2024
seen and exmained. no new compalints. no acute overnight events
able to walk up 1 flight of stairs without sob/chest pain
not able to walk up 2 flights of stairs due to sob, but no chest pain
Objective Data
-
Labs:
Laboratory Results
07/11/24
05:59
WBC 5.9
Hgb 8.4 L
Hct 26.3 L
Plt Count 302
Sodium 142
Potassium 4.7
Chloride 111 H
Carbon Dioxide 20 L
BUN 35 H
Creatinine 2.3 H
Glucose 125 H
Calcium 8.2 L
Vital Signs:
Vital Signs
Temp Pulse Resp BP Pulse Ox
98.1 F 80 15 173/95 97
07/11/24 08:05 07/11/24 11:17 07/11/24 08:05 07/11/24 11:17 07/11/24 08:05
I&O
07/10/24 07/11/24 07/12/24
06:59 06:59 06:59
Intake Total 240 / 240 840 / 840
Output Total 350 / 350
Balance 240 / 240 490 / 490
[2024-07-11] MEDS: VANCOCIN 200 IV (12:09)
[2024-07-11 12:19] VITALS: BP 178/90
[2024-07-11 12:19] LABS: Glucose - Point of Care 156 mg/dl (70-99)
--- NOTE | 2024-07-11 13:43 | W.PN.ID1 ---
Date of Service
Date of Service: July 11, 2024
Today's Communication
Continue antibiotics. Await surgery.
Assessment / Plan
Severe left foot skin and soft tissue infection with abscess
Left fourth metatarsal osteomyelitis.
DM2
Peripheral Neuropathy
Hypertension
CKD III
Anxiety / Depression
Lumbar DDD
Recommendations:
Continue with empiric antibiotics (vancomycin/Zosyn.)
Wound culture has been obtained, with preliminary identification of MRSA.
Will await further culture data to guide antimicrobial selection/de-escalation.
Tentative OR today for I&D.
Monitor white count and temperature curve.
Further recommendations as additional data is returned.
����������������������������������������������������������
Chief Complaint
-: Other (Left foot infection)
Subjective / Review of Systems
Patient seen and examined. No specific complaints today. Currently awaiting surgery.
Review of Systems: No Fever and No Chills
Vital Signs / Physical Exam
Vital Signs
Vital Signs
Temp Pulse Resp BP Pulse Ox
98.1 F 79 15 178/90 97
07/11/24 08:05 07/11/24 12:19 07/11/24 08:05 07/11/24 12:19 07/11/24 08:34
Physical Exam
Constitutional: No Acute Distress, Comfortable and Non-toxic
Eyes: Sclera Anicteric
Cardiovascular: S1/S2; Negative S3/S4
Pulmonary: Non Labored
Gastrointestinal: Soft and Non Tender
Extremities: Edema
Wound: Other (Left foot dressed.)
Neurological: Awake and Alert
Psychological: Calm
Objective Data
Lab Data
Lab Results
07/11/24 05:59
07/11/24 05:59
ESR 93 mm/hour (0-20) H 07/09/24 18:23
Estimated Creat Clear 40 ml/min 07/11/24 05:59
Lactic Acid 0.5 mmol/L (0.7-2.0) L 07/09/24 19:38
Total Bilirubin 0.7 mg/dl (0.2-1.3) 07/09/24 18:23
AST 31 U/L (17-59) 07/09/24 18:23
ALT 56 U/L (0-50) H 07/09/24 18:23
Alkaline Phosphatase 402 U/L (38-126) H 07/09/24 18:23
C-Reactive Protein 63.10 mg/L (0.0-10.00) H 07/09/24 18:23
Most recent labs reviewed.
Micro Results:
07/09/24 18:23 Wound Culture - Preliminary
Foot - Left Staph aureus MRSA
Gram Stain - Preliminary
07/10/24 00:02 MRSA Screen - Final
Nose No Methicillin Resistant Staphylococcus aureus isolated.
07/09/24 19:38 Blood Culture - Preliminary
Blood/Venous No Growth in 24 hours- Final report to follow
07/09/24 19:38 Blood Culture - Preliminary
Blood/Venous No Growth in 24 hours- Final report to follow
07/09/24 18:23 Influenza Types A & B (LAURA) - Final
Nasal Swab Negative for Influenza A & B, NAAT
Negative results must be combined with clinical observations
and patient history.
Nucleic Acid Amplification test (NAAT)performed on the
[employer] platform.
Imaging:
07/10/2024 MRI left lower extremity: Rodney confluent osteomyelitis throughout the entire fourth metatarsal and majority of the fourth digit proximal phalanx. The fourth digit middle and distal phalanges demonstrate osteitis without rodney
osteomyelitis. There is a prominent ulceration along the lateral forefoot with underlying fluid tract and phlegmon/soft tissue abscess measuring up to 2.1 x 2.6 x 2.9 cm.
07/09/2024 X-ray left foot: There are postoperative changes of the distal fifth metatarsal and fifth toe amputation. A small soft tissue defect along the lateral aspect of the forefoot is noted. There is erosion of the fourth metatarsal head.
Mild degenerative changes of the first metatarsal phalangeal joint noted. There are likely hammertoe deformities. Erosions along the lateral aspect of the fourth metatarsal head are new from prior radiographs from 2021 and may represent
osteomyelitis. Please see full dictation for additional detail.
--- NOTE | 2024-07-11 14:47 | CM ---
Addendum entered by Liliana Gaitan 07/11/24 16:51:
Called [facility] (case mgmt consult) spoke to Carmen [phone] to obtain cost for Andreia & Carmen. Carmen stated that she was not able to provide me with cost unless she had the patient consent. Will call again tomorrow & have patient provide
consent to [facility].
Original Note:
Patient seen at bedside.
OR today at 5:15 for L foot I&D
Await PT/OT post op evals.
PLAN: Discharge when stable, await PT/OT evals post-op
[2024-07-11 15:25] VITALS: BP 172/84
--- NOTE | 2024-07-11 15:51 | W.PN.NEPH.PH ---
Today's Communication / Plan
-
see plan
lasix 40mg iv x1
Assessment/Plan
-
Impression:
Acute kidney injury
CKD stage IIIb baseline creatinine 1.6
Metabolic acidosis
Edema
Shortness of breath
Left Foot osteomyelitis
HTN
Plan:
IVY:
-Could be due to underlying evolving infection, cardiorenal with suspect of mild hypervolemia based on echo
UA with mild micor hematuria, U PCR 4.3gm/gm of cr-nephrotic range
complements normal unlikely ICGN, check other serologies, para protein w/u
renal US non obst stone on right, PVR 277cc, follow bladder scan
-Hold JOSE inhibitor in setting of IVY
-Vancomycin and Zosyn renally dosed for compromised GFR
cotn po bicarb for met acidosis
BP are high expect to improve with diuresis, cont prn hydralazine and coreg dose increased
will give lasix 40mg x1 today
follow h/h, check fe panel
d/w pt
-
-
Date of Service: July 11, 2024
CC / HPI / ROS
-
Chief Complaint:
IVY, ckd
History of Present Illness:
cr slightly down at 2.3, bicarb better on po bicarb
hb low 8.4 stable
BP high
no fever
echo normal EF but high filling pressures, IVC not collapsing
Review of Systems:
no cp or sob
no PNA, orthopnea
no n/v
no dysuria
Labs
-
Labs:
WBC 5.9 10^3/uL (4.8-10.8) 07/11/24 05:59
RBC 3.06 10^6/uL (4.70-6.10) L 07/11/24 05:59
Hgb 8.4 g/dL (13.0-18.0) L 07/11/24 05:59
Hct 26.3 % (39.0-52.0) L 07/11/24 05:59
Plt Count 302 10^3/uL (130-400) 07/11/24 05:59
Sodium 142 mmol/L (135-145) 07/11/24 05:59
Potassium 4.7 mmol/L (3.5-5.1) 07/11/24 05:59
Chloride 111 mmol/L (98-107) H 07/11/24 05:59
Carbon Dioxide 20 mmol/L (22-30) L 07/11/24 05:59
BUN 35 mg/dl (9-20) H 07/11/24 05:59
Creatinine 2.3 mg/dL (0.7-1.3) H 07/11/24 05:59
eGFR 31.32 07/11/24 05:59
Glucose 125 mg/dl (70-99) H 07/11/24 05:59
Calcium 8.2 mg/dl (8.4-10.2) L 07/11/24 05:59
Oot-P-Cwdlujbazrm Pept [id number] pg/ml 07/09/24 18:23
Albumin 3.4 g/dl (3.5-5.0) L 07/09/24 18:23
Physical Exam
-
Vital Signs:
Vital Signs
Temp Pulse Resp BP Pulse Ox
98.1 F 79 15 178/90 97
07/11/24 08:05 07/11/24 12:19 07/11/24 08:05 07/11/24 12:19 07/11/24 08:34
Cardiovascular:: Regular rate and rhythm
Respiratory:: Bilateral: CTA
Lung Excursion:: Normal
Abdomen:: Nontender and Soft
Extremity Edema:: +2: Bilateral:
[place] Catheter: No
[2024-07-11] MEDS: APRESOLINE 5 MG IV (15:53)
[2024-07-11] MEDS: LASIX 40 MG IV (16:50)
[2024-07-11 18:33] LABS: Glucose - Point of Care 130 mg/dl (70-99)
--- NOTE | 2024-07-11 18:43 | W.PN.POD ---
Today's Communication
Today's Communication
Podiatry will follow , pending cardiac clearance
Assessment / Plan
-
A/P : Left foot cellulitis with abscess
Left fourth proximal phalanx and metatarsal osteomyelitis.
Diabetic neuropathy.
H/o of left foot 5th toe and distal metatarsal bone resection with multiple d�bridements
Poorly controlled diabetic
Plan : Continue antibiotics per ID.
LT foot surgery postponed due to cardiorenal issues, when stable will proceed with LT foot I & D and bone debridement.
I have discussed with the patient about the incision and drainage along with debridement of bone from left fourth metatarsal will get intraoperative wound cultures along with the bone cultures.
I have discussed all risks and complications of reinfection more proximal amputations more resections from the left foot no guarantees given to save his a limb or life, patient understands and agrees to proceed with the debridement left foot.
will schedule him when medically stable
Subjective
Chief Complaint
Left foot diabetic infection.
Subjective
Patient seen at bedside, doing well, no fever, chills. Cancelled foot I & D due to cardiorenal issues. Still draining Left foot ulcer site.
Objective
Temp Pulse Resp BP Pulse Ox
97.8 F 78 15 170/85 97
07/11/24 15:25 07/11/24 16:50 07/11/24 15:25 07/11/24 16:50 07/11/24 17:13
07/11/24 05:59
07/11/24 05:59
Vital Signs and Lab results were reviewed.
Left foot palpable DP and PT
Edema to the left foot and resolved erythema noted. There is a purulent drainage from the left lateral foot ulceration.
There is some fluctuance he with possible abscess to the left lateral foot noted. There is no exposed bone from left foot.
[2024-07-11] MEDS: COREG 6.25 MG PO (19:51)
[2024-07-11] MEDS: HEPARIN 5000 UNITS SC (19:51)
[2024-07-11 21:22] LABS: Glucose - Point of Care 165 mg/dl (70-99)
[2024-07-11 23:15] VITALS: BP 167/88
[2024-07-12] MEDS: ZOSYN 50 IV ×4 (05:06→23:39)
[2024-07-12 05:43] VITALS: BMI 22.7
[2024-07-12 07:00] VITALS: BP 171/88
[2024-07-12 07:15] VITALS: BP 171/88
[2024-07-12 07:43] LABS: Glucose - Point of Care 123 mg/dl (70-99)
[2024-07-12] MEDS: NOVOLOG FLEXPEN-LOW RESISTANCE SC (07:49)
[2024-07-12 08:33] VITALS: BP 171/88
[2024-07-12] MEDS: HEPARIN 5000 UNITS SC ×2 (09:23→19:23)
[2024-07-12] MEDS: ATIVAN 1 MG PO ×3 (09:23→22:03)
[2024-07-12] MEDS: SODIUM BICARBONATE 650 MG PO ×3 (09:23→22:03)
[2024-07-12] MEDS: NEURONTIN 300 MG PO ×2 (09:23→19:23)
[2024-07-12] MEDS: COREG 6.25 MG PO ×2 (09:23→19:23)
[2024-07-12] MEDS: VISBIOME 1 CAP PO (09:23)
[2024-07-12] MEDS: WELLBUTRIN SR (12 hour sustained release) 150 MG PO ×2 (09:23→19:24)
--- NOTE | 2024-07-12 09:25 | W.PN.ID1 ---
Date of Service
Date of Service: July 12, 2024
Today's Communication
Continue antibiotics.
Assessment / Plan
Severe left foot skin and soft tissue infection with abscess
Left fourth metatarsal osteomyelitis.
DM2
Peripheral Neuropathy
Hypertension
CKD III
Anxiety / Depression
Lumbar DDD
Recommendations:
Continue with empiric antibiotics (vancomycin/Zosyn.)
Wound culture has been obtained, with preliminary identification of MRSA.
Will await further culture data to guide antimicrobial selection/de-escalation.
Awaiting I&D.
Monitor white count and temperature curve.
Further recommendations as additional data is returned.
����������������������������������������������������������
Chief Complaint
-: Other (Left foot infection)
Subjective / Review of Systems
Patient seen and examined. No specific complaints this a.m. No surgery out as Podiatry is awaiting cardiac clearance.
Review of Systems: No Fever and No Chills
Vital Signs / Physical Exam
Vital Signs
Vital Signs
Temp Pulse Resp BP Pulse Ox
97.9 F 81 20 171/88 98
07/12/24 07:15 07/12/24 07:15 07/12/24 07:15 07/12/24 07:15 07/12/24 07:15
Physical Exam
Constitutional: No Acute Distress, Comfortable and Non-toxic
Eyes: Sclera Anicteric
Cardiovascular: S1/S2; Negative S3/S4
Pulmonary: Non Labored
Gastrointestinal: Soft and Non Tender
Extremities: Edema (Left lower extremity) and Erythema
Wound: Other (Left foot dressed. Small amount of serous strikethrough)
Neurological: Awake and Alert
Psychological: Calm
Objective Data
Lab Data
ESR 93 mm/hour (0-20) H 07/09/24 18:23
Estimated Creat Clear 40 ml/min 07/11/24 05:59
Lactic Acid 0.5 mmol/L (0.7-2.0) L 07/09/24 19:38
Total Bilirubin 0.7 mg/dl (0.2-1.3) 07/09/24 18:23
AST 31 U/L (17-59) 07/09/24 18:23
ALT 56 U/L (0-50) H 07/09/24 18:23
Alkaline Phosphatase 402 U/L (38-126) H 07/09/24 18:23
C-Reactive Protein 63.10 mg/L (0.0-10.00) H 07/09/24 18:23
Most recent labs reviewed.
Micro Results:
07/09/24 18:23 Wound Culture - Preliminary
Foot - Left Staph aureus MRSA
Gram Stain - Preliminary
07/09/24 19:38 Blood Culture - Preliminary
Blood/Venous No Growth in 48 hours- Final report to follow
07/09/24 19:38 Blood Culture - Preliminary
Blood/Venous No Growth in 48 hours- Final report to follow
07/10/24 00:02 MRSA Screen - Final
Nose No Methicillin Resistant Staphylococcus aureus isolated.
07/09/24 18:23 Influenza Types A & B (LAURA) - Final
Nasal Swab Negative for Influenza A & B, NAAT
Negative results must be combined with clinical observations
and patient history.
Nucleic Acid Amplification test (NAAT)performed on the
[employer] platform.
Imaging:
07/10/2024 MRI left lower extremity: Rodney confluent osteomyelitis throughout the entire fourth metatarsal and majority of the fourth digit proximal phalanx. The fourth digit middle and distal phalanges demonstrate osteitis without rodney
osteomyelitis. There is a prominent ulceration along the lateral forefoot with underlying fluid tract and phlegmon/soft tissue abscess measuring up to 2.1 x 2.6 x 2.9 cm.
07/09/2024 X-ray left foot: There are postoperative changes of the distal fifth metatarsal and fifth toe amputation. A small soft tissue defect along the lateral aspect of the forefoot is noted. There is erosion of the fourth metatarsal head.
Mild degenerative changes of the first metatarsal phalangeal joint noted. There are likely hammertoe deformities. Erosions along the lateral aspect of the fourth metatarsal head are new from prior radiographs from 2021 and may represent
osteomyelitis. Please see full dictation for additional detail.
--- NOTE | 2024-07-12 10:16 | W.PN.CD ---
Today's Communication / Plan
-
Lasix IV daily for now
Follow labs
Impression / Plan
-
Pre-op risk assessment
- Elevated risk given risk factors and new heart failure but acceptable once volume status improved
HFpEF
- Responding to IV diuresis
- GDMT will await resolution of IVY and acute infection
- Na+/Fluid restriction/HF consults/pt education added
HTN
Left foot abscess/cellulitis/osteo (MRI)
- IV ABX per ID.
- podiatry following and plan for wound/abscess I&D today.
- No arterial disease on TALIA
IVY
- nephrology consulted.
Subjective:
Perhaps a bit less cough
Echo 07/10/24: mild concentric LVH with EF 60-65%, mild RVE, significant LAE, no evidence of significant valvular disease. Diastolic dysfxn with elevated LA pressure suspected
Physical Exam
Vital Signs/Labs
Vital Signs
Temp Pulse Resp BP Pulse Ox
97.9 F 81 20 171/88 98
07/12/24 07:15 07/12/24 09:23 07/12/24 07:15 07/12/24 09:23 07/12/24 07:15
07/11/24 07/12/24 07/13/24
06:59 06:59 06:59
Actual Weight 84.232 kg 82.327 kg
07/09/24
18:23
Bsy-G-Mjpzypvdnlo Pept 35284
LAB Results
07/09/24
18:23
Troponin I < 0.012
Physical Exam
Constitutional: No acute distress
EENT: Anicteric
Cardiovascular: Rhythm & rate is regular and Pedal edema present (tr on right and 2+ on left (side of infection))
Respiratory: Respiratory effort normal and Crackles Absent
GI: Soft and Distention absent
Neuro/Psych: AO x 3
Data Reviewed
-
Date of Service: July 12, 2024
[2024-07-12 10:52] LABS: Hematocrit 26.4 % (39.0-52.0); Hemoglobin 8.5 g/dL (13.0-18.0); Mean Corp Hgb Conc. 32.2 g/dL (33.0-37.0); Mean Corpuscular Hgb 27.2 pg (27.0-31.0); Mean Corpuscular Volume 84.6 fL (80.0-94.0); Mean Platelet Volume 9.4 fL (7.4-10.4); Platelet Count 349 10^3/uL (130-400); Red Blood Cell Count 3.12 10^6/uL (4.70-6.10); Red Cell Dist. Width 14.3 % (11.5-14.5); White Blood Cell Count 6.4 10^3/uL (4.8-10.8)
[2024-07-12 11:08] LABS: Vancomycin Random 13.9 ug/ml
[2024-07-12 11:14] LABS: Blood Urea Nitrogen 30 mg/dl (9-20); Calcium 8.3 mg/dl (8.4-10.2); Carbon Dioxide 23 mmol/L (22-30); Chloride 106 mmol/L (98-107); Estimated Creatinine Clearance 41 ml/min; Glucose 175 mg/dl (70-99); Iron 27 ug/dl (49-181); Potassium 4.7 mmol/L (3.5-5.1); Sodium 140 mmol/L (135-145); eGFR 33.04
[2024-07-12] MEDS: LASIX 40 MG IV (11:20)
[2024-07-12 11:23] LABS: Percent Saturation 13 % (20-50); Total Iron Binding Capacity 207 ug/dl (261-462)
--- NOTE | 2024-07-12 11:26 | CM ---
Received consult for cost analysis of Jardiance and Farxiga. [facility], Jardiance [facility] not [facility], but Farxiga 5mg covered at $84.30/month.
[2024-07-12 11:41] LABS: Glucose - Point of Care 181 mg/dl (70-99)
--- NOTE | 2024-07-12 11:43 | PHA.VAN.FU ---
Vancomycin Assessment / Plan
- Assessment
Renal Function: SCR Decreasing (2.3>2.2)
WBC's are: Trending Up (5.9>6.4)
In the past 24 hrs, patient has been: Afebrile
Concomitant Antimicrobials: Piperacillin-tazobactam
- Assessment - Therapeutic Drug Monitoring
Random Level: 13.9 drawn ~22 hrs after 1000mg dose given
- Dosing Plan
Dosing by Level: Re-dose today (Vancomycin 1000mg x 1 dose for 12noon today)
- Monitoring Plan
Random Level: Ordered for 07/13/24 at 06:00
- Follow Up
Pharmacy will continue to follow.
Vancomycin Follow UP
- -
Patient Age: 63
Patient Sex: Male
Vancomycin Day #: 3
Indication: Bone And Joint
Requesting Provider: Marely Benítez / Marquise
Pertinent Antimicrobial Allergies:
NKDA
Height / Weight:
Height 6 ft 3 in
Actual Weight 82.327 kg
Pertinent Past Medical History: DM II, CKD
- Vital Signs / Lab Results
Temp Pulse Resp BP Pulse Ox
97.9 F 81 20 163/80 98
07/12/24 07:15 07/12/24 09:23 07/12/24 07:15 07/12/24 11:20 07/12/24 07:15
Lab Results - Hematology
07/09/24 07/10/24 07/11/24
18:23 05:20 05:59
WBC 7.8 6.9 5.9
07/12/24
10:22
WBC 6.4
Lab Results - Chemistry
07/09/24 07/10/24 07/11/24
18:23 05:20 05:59
BUN 44 H 41 H 35 H
Creatinine 2.3 H 2.4 H 2.3 H
Estimated Creat Clear 40 38 40
Albumin 3.4 L
07/12/24
10:22
BUN 30 H
Creatinine 2.2 H
Estimated Creat Clear 41
Albumin
07/09/24
19:38
Lactic Acid 0.5 L
Microbiology Results
07/09/24 18:23 Wound Culture - Final
Foot - Left Staph aureus MRSA
Gram Stain - Final
07/09/24 19:38 Blood Culture - Preliminary
Blood/Venous No Growth in 48 hours- Final report to follow
07/09/24 19:38 Blood Culture - Preliminary
Blood/Venous No Growth in 48 hours- Final report to follow
07/10/24 00:02 MRSA Screen - Final
Nose No Methicillin Resistant Staphylococcus aureus isolated.
Therapeutic Drug Monitoring
Random Vancomycin 13.9 ug/ml 07/12/24 10:22
Random Vancomycin Cancelled 07/12/24 10:22
--- NOTE | 2024-07-12 12:28 | W.PN.HOSP.TC ---
Today's Communication/Plan
-
iv diuresis for now
vanc dosing per Pharm
plan for OR on sunday with pod
Assessment / Plan
Assessment / Plan
Imaging
CXR
IMPRESSION:
No acute cardiopulmonary abnormality.
Toe Xray
IMPRESSION:
Postoperative changes of distal fifth metatarsal and phalanx amputation. There is a soft tissue defect along the lateral aspect of the forefoot. There is an erosion along the lateral aspect of the fourth metatarsal head which is new from prior
radiograph in 2021 and may represent osteomyelitis.
Mild degenerative changes of the first MTP.
Likely hammertoe deformities.
2d echo
CONCLUSIONS
1. Mild concentric LVH with EF 60-65%
2. Mild RVE
3. LAE
4. No evidence of significant valvular disease
MRI
IMPRESSION:
Rodney confluent osteomyelitis throughout the entire fourth metatarsal and majority of the fourth digit proximal phalanx. The fourth digit middle and distal phalanges demonstrate osteitis without rodney osteomyelitis.
Osteitis throughout the third digit without rodney osteomyelitis.
Prominent ulceration along the lateral forefoot with underlying fluid tract and phlegmon/soft tissue abscess measuring up to 2.1 x 2.6 x 2.9 cm.
Renal Ultrasound
IMPRESSION:
Nonobstructing right renal calculus. No hydronephrosis, bilaterally. Bilateral renal cysts. Significant postvoid bladder residual.
TALIA
IMPRESSION: Normal ankle brachial indices on each side, and normal waveforms. No focal arterial stenosis demonstrated on either side.
Physical Exam
NAD, resting comfortably in bed
Scleral anicteric
Moist mucous membranes
No JVD
CTA bilateral
Normal S1-S2 no murmurs
Soft nontender nondistended bowel sounds active
No peripheral pitting edema
Moves extremities spontaneously
Left foot wrapped in bandage, dressing lateral portion with dried serosangerious draingage
AAOx3
Assessment and Plan
Diabetic foot infection diabetic foot infection
-Concern for osteo
-Wound cultrue growing MRSA, DC IVATb
-High ESR/CRP
-Xray with mali erosion
-MRI as above
-TALIA as above
-Podiatry following, planning for OR later today
-ID following
-Will hold any further dosing of zosyn as he is not septic and this should improve yeild of culture data
IVY
-Baseline cr 1.5-1.7, nonoligouric
-bladder scan
-monitor uop
-avoid nephrotoxins and hypotension
Metablic acidosis
-Related to renal failure
-Neph started bicarb tabs
HFpEF, EF 60-65%
-CXR and exam not consisted with HF
-Monitor volume status
-Will start low dose diuretic when renal function improves
Diabetes
-Accucehcks
-SSI
-BG 140-180
RCRI 2 (Cr >2, Insulin), Poole 1.1%, BERKLEY risk, METSs =4, ekg sr with nonspecific twave changes improved from previous
-Will have cards see
Anticipated Discharge: > 48 hours
Subjective/Interval History
-
Date of Service: July 12, 2024
seen and examined. no new complaints. states he is peeing a lot.
does not feel any changes
Objective Data
-
Labs:
Laboratory Results
07/12/24
10:22
WBC 6.4
Hgb 8.5 L
Hct 26.4 L
Plt Count 349
Sodium 140
Potassium 4.7
Chloride 106
Carbon Dioxide 23
BUN 30 H
Creatinine 2.2 H
Glucose 175 H
Calcium 8.3 L
Vital Signs:
Vital Signs
Temp Pulse Resp BP Pulse Ox
97.9 F 81 20 163/80 98
07/12/24 07:15 07/12/24 09:23 07/12/24 07:15 07/12/24 11:20 07/12/24 11:49
I&O
07/11/24 07/12/24 07/13/24
06:59 06:59 06:59
Intake Total 840 / 840 1260 / 1260
Output Total 350 / 350
Balance 490 / 490 1260 / 1260
[2024-07-12] MEDS: VANCOCIN 200 IV (12:47)
[2024-07-12] MEDS: NOVOLOG FLEXPEN-LOW RESISTANCE 1 UNITS SC ×2 (12:48→17:01)
--- NOTE | 2024-07-12 14:25 | W.PN.NEPH.PH ---
Today's Communication / Plan
-
lasix
Assessment/Plan
-
Impression:
Acute kidney injury
CKD stage IIIb baseline creatinine 1.6
Metabolic acidosis
Edema
Shortness of breath
Left Foot osteomyelitis
HTN
Plan:
IVY:
possible cardiorenal, cr slightly better with diuresis
UA with mild micro hematuria, U PCR 4.3gm/gm of cr-nephrotic range
complements normal unlikely ICGN, pending serologies, para protein w/u
renal US non obst stone on right, PVR 277cc, follow bladder scan
-Hold JOSE inhibitor in setting of IVY
-Vancomycin and Zosyn renally dosed for compromised GFR
cotn po bicarb for met acidosis
BP are high expect to improve with diuresis, cont prn hydralazine and coreg dose increased 07/11
cont lasix 40mg daily
follow h/h, check fe panel
d/w pt
-
-
Date of Service: July 12, 2024
CC / HPI / ROS
-
Chief Complaint:
IVY, ckd
History of Present Illness:
cr slightly down at 2.2, bicarb better on po bicarb
hb low 8.5 stable
BP high
no fever
echo normal EF but high filling pressures, IVC not collapsing
Review of Systems:
no cp or sob
no n/v
no dysuria
Labs
-
Labs:
WBC 6.4 10^3/uL (4.8-10.8) 07/12/24 10:22
RBC 3.12 10^6/uL (4.70-6.10) L 07/12/24 10:22
Hgb 8.5 g/dL (13.0-18.0) L 07/12/24 10:22
Hct 26.4 % (39.0-52.0) L 07/12/24 10:22
Plt Count 349 10^3/uL (130-400) 07/12/24 10:22
Sodium 140 mmol/L (135-145) 07/12/24 10:22
Potassium 4.7 mmol/L (3.5-5.1) 07/12/24 10:22
Chloride 106 mmol/L (98-107) 07/12/24 10:22
Carbon Dioxide 23 mmol/L (22-30) 07/12/24 10:22
BUN 30 mg/dl (9-20) H 07/12/24 10:22
Creatinine 2.2 mg/dL (0.7-1.3) H 07/12/24 10:22
eGFR 33.04 07/12/24 10:22
Glucose 175 mg/dl (70-99) H 07/12/24 10:22
Calcium 8.3 mg/dl (8.4-10.2) L 07/12/24 10:22
Ejo-R-Yqlenmmrelc Pept 20809 pg/ml 07/09/24 18:23
Albumin 3.4 g/dl (3.5-5.0) L 07/09/24 18:23
Physical Exam
-
Vital Signs:
Vital Signs
Temp Pulse Resp BP Pulse Ox
97.9 F 81 20 163/80 98
07/12/24 07:15 07/12/24 09:23 07/12/24 07:15 07/12/24 11:20 07/12/24 11:49
Cardiovascular:: Regular rate and rhythm
Respiratory:: Bilateral: CTA
Lung Excursion:: Normal
Abdomen:: Nontender and Soft
Extremity Edema:: +1: Left: and +2: Right:
[place] Catheter: No
[2024-07-12 15:30] VITALS: BP 166/83
--- NOTE | 2024-07-12 16:13 | PTCARENOTE ---
Patient frequently urinating throughout shift, states small-moderate amount in toilet each time and feels that he is emptying bladder each time. Cr on AM labs 2.2. Patient bladder scanned after urinating in bathroom for 592 ml. MD and nephro made
aware, verbal order for bladder scan straight cath protocol placed per MD. Patient urinated in bathroom again, bladder scanned post void for 342 ml. MD made aware, no new orders at this time. Patient made aware to use urinal for accurate I+Os,
verbalized understanding.
[2024-07-12 16:38] LABS: Glucose - Point of Care 170 mg/dl (70-99)
[2024-07-12 21:14] VITALS: BP 156/82
[2024-07-12 21:34] LABS: Glucose - Point of Care 166 mg/dl (70-99)
[2024-07-12 23:38] VITALS: BP 175/85
[2024-07-12] MEDS: APRESOLINE 5 MG IV (23:39)
[2024-07-13 01:49] VITALS: BP 154/75
[2024-07-13] MEDS: ZOSYN 50 IV ×3 (05:32→18:16)
[2024-07-13 06:00] VITALS: BMI 22.2
[2024-07-13 06:07] LABS: Blood Urea Nitrogen 28 mg/dl (9-20); Calcium 8.2 mg/dl (8.4-10.2); Carbon Dioxide 25 mmol/L (22-30); Chloride 107 mmol/L (98-107); Estimated Creatinine Clearance 39 ml/min; Glucose 118 mg/dl (70-99); Potassium 4.1 mmol/L (3.5-5.1); Sodium 142 mmol/L (135-145); eGFR 31.32
[2024-07-13 07:23] VITALS: BP 176/83
[2024-07-13 07:47] LABS: Glucose - Point of Care 135 mg/dl (70-99)
[2024-07-13] MEDS: NOVOLOG FLEXPEN-LOW RESISTANCE SC (07:49)
--- NOTE | 2024-07-13 07:58 | W.PN.CD ---
Today's Communication / Plan
-
Lasix IV today
Follow labs/Weight
Move to PO Lasix tomorrow
OK for OR at increased but not prohibitive risk, no role for ischemic evaluation at prior to surgery
Impression / Plan
-
Pre-op risk assessment
- Elevated risk given risk factors and new heart failure but acceptable once volume status improved
HFpEF
- Responding to IV diuresis => move to PO Sunday
- GDMT will await resolution of IVY and acute infection
- Na+/Fluid restriction/HF consults/pt education in place
- Weight 80.5 kg 07/13/2024 (admit weight 84.5)
HTN
Left foot abscess/cellulitis/osteo (MRI)
- IV ABX per ID.
- podiatry following and plan for wound/abscess I&D today.
- No arterial disease on TALIA/arterial studies
Anemia, Hgb 8.5, MCV/RDW normal
IVY
- nephrology consulted.
DM
Subjective:
Cough improved
Echo 07/10/24: mild concentric LVH with EF 60-65%, mild RVE, significant LAE, no evidence of significant valvular disease. Diastolic dysfxn with elevated LA pressure suspected
Physical Exam
Vital Signs/Labs
Vital Signs
Temp Pulse Resp BP Pulse Ox
97.9 F 79 16 154/75 96
07/12/24 23:38 07/13/24 01:49 07/12/24 23:38 07/13/24 01:49 07/12/24 23:38
07/12/24 07/13/24 07/14/24
06:59 06:59 06:59
Actual Weight 82.327 kg 80.558 kg
07/12/24 10:22
07/13/24 04:52
07/09/24
18:23
Wbg-U-Dqtaoeooqto Pept
Physical Exam
Constitutional: No acute distress
EENT: Anicteric
Cardiovascular: Rhythm & rate is regular and Pedal edema present (1+ left and tr Right)
Respiratory: Respiratory effort normal and Lungs clear to auscul.
GI: Soft and Distention absent
Neuro/Psych: AO x 3
Data Reviewed
-
Date of Service: July 13, 2024
[2024-07-13] MEDS: LASIX 40 MG IV (08:24)
[2024-07-13] MEDS: ATIVAN 1 MG PO ×3 (08:25→21:34)
[2024-07-13] MEDS: HEPARIN 5000 UNITS SC (08:25)
[2024-07-13] MEDS: WELLBUTRIN SR (12 hour sustained release) 150 MG PO ×2 (08:25→21:28)
[2024-07-13] MEDS: NEURONTIN 300 MG PO ×2 (08:25→21:28)
[2024-07-13] MEDS: COREG 6.25 MG PO ×2 (08:26→21:34)
[2024-07-13] MEDS: VISBIOME 1 CAP PO (08:26)
[2024-07-13] MEDS: SODIUM BICARBONATE 650 MG PO ×2 (08:26→21:29)
--- NOTE | 2024-07-13 09:18 | PHA.VAN.FU ---
Addendum entered and electronically signed by Bert Hobson [facility] 07/13/24 09:30:
will change dose of vancomycin to 500mg IV x 1 dose today due to Scr bumped and random level elevated at 17
Original Note:
Vancomycin Assessment / Plan
- Assessment
Renal Function: SCR Increasing (2.2>2.3)
WBC's are: Trending Up (5.9>6.4)
In the past 24 hrs, patient has been: Afebrile
Concomitant Antimicrobials: Piperacillin-tazobactam
- Assessment - Therapeutic Drug Monitoring
Random Level: 17 drawn ~16 hrs after 1000mg dose given
- Dosing Plan
Dosing by Level: Re-dose today (Vancomycin 750mg IV x 1 dose)
Dosing Comments: extrapolated level if taken closer to previous dosing time would be ~13
- Monitoring Plan
Random Level: Ordered for 07/14/24 at 06:00
- Follow Up
Pharmacy will continue to follow.
Vancomycin Follow UP
- -
Patient Age: 63
Patient Sex: Male
Vancomycin Day #: 4
Indication: Bone And Joint
Requesting Provider: Marely Benítez / Marquise
Pertinent Antimicrobial Allergies:
NKDA
Height / Weight:
Height 6 ft 3 in
Actual Weight 80.558 kg
Pertinent Past Medical History: DM II, CKD
- Vital Signs / Lab Results
Temp Pulse Resp BP Pulse Ox
98.3 F 80 20 176/83 96
07/13/24 07:23 07/13/24 08:26 07/13/24 07:23 07/13/24 08:26 07/12/24 23:38
Lab Results - Hematology
07/11/24 07/12/24
05:59 10:22
WBC 5.9 6.4
Lab Results - Chemistry
07/11/24 07/12/24 07/13/24
05:59 10: 04:52
BUN 35 H 30 H 28 H
Creatinine 2.3 H 2.2 H 2.3 H
Estimated Creat Clear 40 41 39
Microbiology Results
07/09/24 19:38 Blood Culture - Preliminary
Blood/Venous No Growth in 72 hours- Final report to follow
07/09/24 19:38 Blood Culture - Preliminary
Blood/Venous No Growth in 72 hours- Final report to follow
07/09/24 18:23 Wound Culture - Final
Foot - Left Staph aureus MRSA
Gram Stain - Final
07/10/24 00:02 MRSA Screen - Final
Nose No Methicillin Resistant Staphylococcus aureus isolated.
Therapeutic Drug Monitoring
Random Vancomycin 17.0 ug/ml 07/13/24 04:52
[2024-07-13 10:00] VITALS: BP 151/80
--- NOTE | 2024-07-13 11:35 | W.PN.HOSP.TC ---
Today's Communication/Plan
-
Assessment / Plan
Assessment / Plan
Imaging
CXR
IMPRESSION:
No acute cardiopulmonary abnormality.
Toe Xray
IMPRESSION:
Postoperative changes of distal fifth metatarsal and phalanx amputation. There is a soft tissue defect along the lateral aspect of the forefoot. There is an erosion along the lateral aspect of the fourth metatarsal head which is new from prior
radiograph in 2021 and may represent osteomyelitis.
Mild degenerative changes of the first MTP.
Likely hammertoe deformities.
2d echo
CONCLUSIONS
1. Mild concentric LVH with EF 60-65%
2. Mild RVE
3. LAE
4. No evidence of significant valvular disease
MRI
IMPRESSION:
Rodney confluent osteomyelitis throughout the entire fourth metatarsal and majority of the fourth digit proximal phalanx. The fourth digit middle and distal phalanges demonstrate osteitis without rodney osteomyelitis.
Osteitis throughout the third digit without rodney osteomyelitis.
Prominent ulceration along the lateral forefoot with underlying fluid tract and phlegmon/soft tissue abscess measuring up to 2.1 x 2.6 x 2.9 cm.
Renal Ultrasound
IMPRESSION:
Nonobstructing right renal calculus. No hydronephrosis, bilaterally. Bilateral renal cysts. Significant postvoid bladder residual.
TALIA
IMPRESSION: Normal ankle brachial indices on each side, and normal waveforms. No focal arterial stenosis demonstrated on either side.
Physical Exam
NAD, resting comfortably in bed
Scleral anicteric
Moist mucous membranes
No JVD
CTA bilateral
Normal S1-S2 no murmurs
Soft nontender nondistended bowel sounds active
No peripheral pitting edema
Moves extremities spontaneously
Left foot wrapped in bandage, dressing lateral portion with dried serosangerious draingage
AAOx3
Assessment and Plan
Diabetic foot infection diabetic foot infection
-Concern for osteo
-Wound cultrue growing MRSA, DC IVATb
-High ESR/CRP
-Xray with mali erosion
-MRI as above
-TALIA as above
-Podiatry following, planning for OR later today
-ID following
-Will hold any further dosing of zosyn as he is not septic and this should improve yeild of culture data
IVY
-Baseline cr 1.5-1.7, nonoligouric
-bladder scan
-monitor uop
-avoid nephrotoxins and hypotension
Metabolic acidosis
-Related to renal failure
-Neph started bicarb tabs
Acute on chronic HFpEF, EF 60-65% nyha class III-IV
-CXR and exam not consisted with HF
-Monitor volume status
-IV low dose diuretic plan to trnasition to po in the enxt 24hours
Diabetes
-Accucehcks
-SSI
-BG 140-180
RCRI 2 (Cr >2, Insulin), Poole 1.1%, BERKLEY risk, METSs =4, ekg sr with nonspecific twave changes improved from previous
-Cards prohibitive risk provided
Anticipated Discharge: 24 - 48 hours
Subjective/Interval History
-
Date of Service: July 13, 2024
seen and examined. no new complaints. no acute ovenright events
feeling better, sob resolved
Objective Data
-
Labs:
Laboratory Results
07/13/24
04:52
Sodium 142
Potassium 4.1
Chloride 107
Carbon Dioxide 25
BUN 28 H
Creatinine 2.3 H
Glucose 118 H
Calcium 8.2 L
Vital Signs:
Vital Signs
Temp Pulse Resp BP Pulse Ox
98.3 F 74 16 151/80 97
07/13/24 07:23 07/13/24 10:00 07/13/24 10:00 07/13/24 10:00 07/13/24 10:00
I&O
07/12/24 07/13/24 07/14/24
06:59 06:59 06:59
Intake Total 1260 / 1260 1440 / 1440
Output Total 1650 / 1650
Balance 1260 / 1260 -210 / -210
[2024-07-13 11:52] LABS: Glucose - Point of Care 192 mg/dl (70-99)
--- NOTE | 2024-07-13 12:17 | W.PN.NEPH.PH ---
Today's Communication / Plan
-
lasix change to po
IV fe course
Assessment/Plan
-
Impression:
Acute kidney injury
CKD stage IIIb baseline creatinine 1.6
Metabolic acidosis
Edema
Shortness of breath
Left Foot osteomyelitis
HTN
Plan:
IVY:
possible cardiorenal, cr no sig change with diuresis
UA with mild micro hematuria, U PCR 4.3gm/gm of cr-nephrotic range
complements normal unlikely ICGN, pending serologies, para protein w/u
renal US non obst stone on right, PVR 277cc, follow bladder scan
-Hold JOSE inhibitor in setting of IVY
-Vancomycin and Zosyn renally dosed for compromised GFR, vanc level 17
improved met acidosis -decrease bicarb to BID
BP are high expect to improve with diuresis, cont prn hydralazine and coreg dose increased 07/11
cont lasix 40mg d, to change to po in am
follow h/h, fe sat 13%, start IV Fe course
d/w pt
-
-
Date of Service: July 13, 2024
CC / HPI / ROS
-
Chief Complaint:
IVY, ckd
History of Present Illness:
cr slightly up at 2.3,met acidosis better on po bicarb
hb low 8.5 stable
BP high
no fever
echo normal EF but high filling pressures, IVC not collapsing
Review of Systems:
no cp or sob
no n/v
no dysuria
Labs
-
Labs:
WBC 6.4 10^3/uL (4.8-10.8) 07/12/24 10:22
RBC 3.12 10^6/uL (4.70-6.10) L 07/12/24 10:22
Hgb 8.5 g/dL (13.0-18.0) L 07/12/24 10:22
Hct 26.4 % (39.0-52.0) L 07/12/24 10:22
Plt Count 349 10^3/uL (130-400) 07/12/24 10:22
Sodium 142 mmol/L (135-145) 07/13/24 04:52
Potassium 4.1 mmol/L (3.5-5.1) 07/13/24 04:52
Chloride 107 mmol/L (98-107) 07/13/24 04:52
Carbon Dioxide 25 mmol/L (22-30) 07/13/24 04:52
BUN 28 mg/dl (9-20) H 07/13/24 04:52
Creatinine 2.3 mg/dL (0.7-1.3) H 07/13/24 04:52
eGFR 31.32 07/13/24 04:52
Glucose 118 mg/dl (70-99) H 07/13/24 04:52
Calcium 8.2 mg/dl (8.4-10.2) L 07/13/24 04:52
Dth-F-Jxswtjruzxx Pept 20756 pg/ml 07/09/24 18:23
Albumin 3.4 g/dl (3.5-5.0) L 07/09/24 18:23
Physical Exam
-
Vital Signs:
Vital Signs
Temp Pulse Resp BP Pulse Ox
98.3 F 74 16 151/80 97
07/13/24 07:23 07/13/24 10:00 07/13/24 10:00 07/13/24 10:00 07/13/24 10:00
Cardiovascular:: Regular rate and rhythm
Respiratory:: Bilateral: CTA
Lung Excursion:: Normal
Abdomen:: Nontender and Soft
Extremity Edema:: +1: Bilateral: (left>right)
[place] Catheter: No
[2024-07-13] MEDS: NOVOLOG FLEXPEN-LOW RESISTANCE 1 UNITS SC ×2 (12:22→17:26)
[2024-07-13] MEDS: VANCOCIN HCL 500 MG 100 IV (13:36)
[2024-07-13] MEDS: FERRLECIT 110 MG IV (14:32)
[2024-07-13 16:00] VITALS: BP 187/96
[2024-07-13] MEDS: APRESOLINE 5 MG IV (16:10)
[2024-07-13 17:10] LABS: Glucose - Point of Care 155 mg/dl (70-99)
[2024-07-13 23:18] VITALS: BP 161/80
[2024-07-13 23:30] LABS: Glucose - Point of Care 138 mg/dl (70-99)
[2024-07-14] VITALS (10 sets, daily range): BP systolic 138–176; BP diastolic 77–91
[2024-07-14] MEDS: ZOSYN 50 IV ×3 (00:14→17:05)
[2024-07-14 06:30] LABS: Glucose - Point of Care 129 mg/dl (70-99)
[2024-07-14 07:10] LABS: Vancomycin Random 14.6 ug/ml
[2024-07-14 07:30] LABS: Blood Urea Nitrogen 26 mg/dl (9-20); Calcium 8.4 mg/dl (8.4-10.2); Carbon Dioxide 27 mmol/L (22-30); Chloride 105 mmol/L (98-107); Estimated Creatinine Clearance 36 ml/min; Glucose 116 mg/dl (70-99); Potassium 4.2 mmol/L (3.5-5.1); Sodium 143 mmol/L (135-145); eGFR 29.76
--- NOTE | 2024-07-14 07:58 | PHA.VAN.FU ---
Vancomycin Assessment / Plan
- Assessment
Renal Function: Stable
WBC's are: WNL
In the past 24 hrs, patient has been: Afebrile
Concomitant Antimicrobials: piperacillin/tazobactam
- Assessment - Therapeutic Drug Monitoring
Random Level: 14.6 - drawn ~16H after previous dose of 500mg
Levels this admission were mostly drawn < 18H after prior dosing (except level of 13.9)
- Dosing Plan
Dosing by Level: Re-dose today (Vanc 1000mg)
- Monitoring Plan
Random Level: 07/15 600
- Follow Up
Pharmacy will continue to follow.
Vancomycin Follow UP
- -
Patient Age: 63
Patient Sex: Male
Vancomycin Day #: 5
Indication: Bone And Joint
Requesting Provider: Marely Benítez / Marquise
Pertinent Antimicrobial Allergies:
NKDA
Height / Weight:
Height 6 ft 3 in
Actual Weight 80.558 kg
Pertinent Past Medical History: DM II, CKD
- Vital Signs / Lab Results
Temp Pulse Resp BP Pulse Ox
97.8 F 78 18 161/80 97
07/13/24 23:18 07/13/24 23:18 07/13/24 23:18 07/13/24 23:18 07/13/24 23:18
Lab Results - Hematology
07/12/24
10:22
WBC 6.4
Lab Results - Chemistry
07/12/24 07/13/24 07/14/24
10: 04:52 05:46
BUN 30 H 28 H 26 H
Creatinine 2.2 H 2.3 H 2.4 H
Estimated Creat Clear 41 39 36
Microbiology Results
07/09/24 19:38 Blood Culture - Preliminary
Blood/Venous No Growth in 4 days- Final report to follow
07/09/24 19:38 Blood Culture - Preliminary
Blood/Venous No Growth in 4 days- Final report to follow
07/09/24 18:23 Wound Culture - Final
Foot - Left Staph aureus MRSA
Gram Stain - Final
Therapeutic Drug Monitoring
Random Vancomycin 14.6 ug/ml 07/14/24 05:46
[2024-07-14] MEDS: VISBIOME 1 CAP PO (08:29)
[2024-07-14] MEDS: ATIVAN 1 MG PO ×3 (08:29→22:22)
[2024-07-14] MEDS: NEURONTIN 300 MG PO ×2 (08:29→20:15)
[2024-07-14] MEDS: WELLBUTRIN SR (12 hour sustained release) 150 MG PO ×2 (08:29→20:15)
[2024-07-14] MEDS: SODIUM BICARBONATE 650 MG PO (08:29)
[2024-07-14] MEDS: COREG 6.25 MG PO (08:30)
[2024-07-14] MEDS: LASIX 40 MG PO (08:30)
--- NOTE | 2024-07-14 08:30 | W.PN.CD ---
Today's Communication / Plan
-
Coreg to 12.5 mg bid
Lasix 40 mg daily
GDMT once Cr stabilizes and recovering from OR/infection
Impression / Plan
-
Pre-op risk assessmentnow s/p OR
- Elevated risk given risk factors and new heart failure but acceptable once volume status improved
HFpEF
- Now on 40 mg lasix
- GDMT will await resolution of IVY and acute infection
- Na+/Fluid restriction/HF consults/pt education in place
- Weight 80.5 kg 07/13/2024 (admit weight 84.5), weight not recorded yet for 07/14
HTN
- increased coreg to 12.5 mg bid start tonight
- at some point can add valsartan and spironolactone for HFpEF, holding given IVY and infection
Left foot abscess/cellulitis/osteo (MRI)
- IV ABX per ID.
- podiatry following and plan for wound/abscess I&D today.
- No arterial disease on TALIA/arterial studies
Anemia, Hgb 8.5, MCV/RDW normal
IVY
- nephrology consulted.
DM
Subjective:
No new complaints today, now on PO diuretics
Echo 07/10/24: mild concentric LVH with EF 60-65%, mild RVE, significant LAE, no evidence of significant valvular disease. Diastolic dysfxn with elevated LA pressure suspected
Physical Exam
Vital Signs/Labs
Vital Signs
Temp Pulse Resp BP Pulse Ox
97.8 F 78 18 161/80 97
07/13/24 23:18 07/13/24 23:18 07/13/24 23:18 07/13/24 23:18 07/13/24 23:18
07/13/24 07/14/24 07/15/24
06:59 06:59 06:59
Actual Weight 177 lb 9.6 oz
07/12/24 10:22
07/14/24 05:46
07/09/24
18:23
Wkc-O-Oynazmbtkqj Pept
Physical Exam
Constitutional: No acute distress and Comfortable
EENT: Anicteric
Cardiovascular: Rhythm & rate is regular and Pedal edema present (trace at ankles )
Respiratory: Respiratory effort normal and Lungs clear to auscul.
GI: Soft
Neuro/Psych: AO x 3
Data Reviewed
-
Date of Service: July 14, 2024
EKG: Tracing Personally Visualized and interpreted (sr)
Echo: Report Reviewed by me
Labs: Labs Reviewed by me
[2024-07-14] MEDS: VANCOCIN 200 IV (08:31)
--- NOTE | 2024-07-14 09:23 | W.PN.HOSP.TC ---
Today's Communication/Plan
-
For OR with Pod, for bone culture
NaHCO3 tabs changded to daily
Started Flomax for high PVR's
Lasix changed to PO per Cards
Vanc dosed per Pharmacy
Neph and ID following
Assessment / Plan
Assessment / Plan
Imaging
CXR
IMPRESSION:
No acute cardiopulmonary abnormality.
Toe Xray
IMPRESSION:
Postoperative changes of distal fifth metatarsal and phalanx amputation. There is a soft tissue defect along the lateral aspect of the forefoot. There is an erosion along the lateral aspect of the fourth metatarsal head which is new from prior
radiograph in 2021 and may represent osteomyelitis.
Mild degenerative changes of the first MTP.
Likely hammertoe deformities.
2d echo
CONCLUSIONS
1. Mild concentric LVH with EF 60-65%
2. Mild RVE
3. LAE
4. No evidence of significant valvular disease
MRI
IMPRESSION:
Rodney confluent osteomyelitis throughout the entire fourth metatarsal and majority of the fourth digit proximal phalanx. The fourth digit middle and distal phalanges demonstrate osteitis without rodney osteomyelitis.
Osteitis throughout the third digit without rodney osteomyelitis.
Prominent ulceration along the lateral forefoot with underlying fluid tract and phlegmon/soft tissue abscess measuring up to 2.1 x 2.6 x 2.9 cm.
Renal Ultrasound
IMPRESSION:
Nonobstructing right renal calculus. No hydronephrosis, bilaterally. Bilateral renal cysts. Significant postvoid bladder residual.
TALIA
IMPRESSION: Normal ankle brachial indices on each side, and normal waveforms. No focal arterial stenosis demonstrated on either side.
Physical Exam
NAD, resting comfortably in bed
Scleral anicteric
Moist mucous membranes
No JVD
CTA bilateral
Normal S1-S2 no murmurs
Soft nontender nondistended bowel sounds active
No peripheral pitting edema
Moves extremities spontaneously
Left foot wrapped in bandage, dressing lateral portion with dried serosangerious draingage
AAOx3
Assessment and Plan
Diabetic foot infection diabetic foot infection
-Concern for osteo
-Wound cultrue growing MRSA, DC IVATb, continue vanc, pharm dosing per trough
-High ESR/CRP
-Xray with mali erosion
-MRI as above
-TALIA as above
-Podiatry following, planning for OR later today
-ID following
-Will hold any further dosing of zosyn as he is not septic and this should improve yeild of culture data
IVY vs progressive ckd
-Baseline cr 1.5-1.7, renal function stable, ?new baseline, nonoligouric
-bladder scan
-monitor uop
-avoid nephrotoxins and hypotension
NAGMA in CKD IIIB
-resovled
-Goal 22-26. now 27 today
-Likely would benefit from reduced dose of NaHCO3 tabs.
High PVR
-Started Flomax
-Outpatient Uro follow up
Acute on chronic HFpEF, EF 60-65% nyha class III-IV
-CXR and exam not consisted with HF
-Monitor volume status
-IV low dose diuretic plan to trnasition to po in the enxt 24hours
Diabetes
-Accucehcks
-SSI
-BG 140-180
RCRI 2 (Cr >2, Insulin), Poole 1.1%, BERKLEY risk, METSs =4, ekg sr with nonspecific twave changes improved from previous
-Cards prohibitive risk provided
Anticipated Discharge: 24 - 48 hours
Subjective/Interval History
-
Date of Service: July 14, 2024
seen and examined. no new comaplints. no acute overnight events
ready for the OR
Objective Data
-
Labs:
Laboratory Results
07/14/24
05:46
Sodium 143
Potassium 4.2
Chloride 105
Carbon Dioxide 27
BUN 26 H
Creatinine 2.4 H
Glucose 116 H
Calcium 8.4
Vital Signs:
Vital Signs
Temp Pulse Resp BP Pulse Ox
97.9 F 79 16 169/86 95
07/14/24 07:15 07/14/24 08:30 07/14/24 07:15 07/14/24 08:30 07/14/24 07:15
I&O
07/13/24 07/14/24 07/15/24
06:59 06:59 06:59
Intake Total 1440 / 1440 520 / 520 480 / 480
Output Total 1650 / 1650
Balance -210 / -210 520 / 520 480 / 480
[2024-07-14 10:24] LABS: Glucose - Point of Care 151 mg/dl (70-99)
--- NOTE | 2024-07-14 10:44 | W.PN.NEPH.PH ---
Today's Communication / Plan
-
urine 24h
Assessment/Plan
-
Impression:
Acute kidney injury
CKD stage IIIb baseline creatinine 1.6
Metabolic acidosis
Edema
Shortness of breath
Left Foot osteomyelitis
HTN
Plan:
check 24 hour urine protein after OR
follow BMP
await serologies
continue lasix
stop bicarb
-
-
Date of Service: July 14, 2024
CC / HPI / ROS
-
Chief Complaint:
IVY, ckd
History of Present Illness:
IVY/Cr stable at 2.4
BP high stable
no fever
for OR otday
on abx for LLE osteo
Review of Systems:
no cp or sob
no n/v
no dysuria
Labs
-
Labs:
WBC 6.4 10^3/uL (4.8-10.8) 07/12/24 10:22
RBC 3.12 10^6/uL (4.70-6.10) L 07/12/24 10:22
Hgb 8.5 g/dL (13.0-18.0) L 07/12/24 10:22
Hct 26.4 % (39.0-52.0) L 07/12/24 10:22
Plt Count 349 10^3/uL (130-400) 07/12/24 10:22
Sodium 143 mmol/L (135-145) 07/14/24 05:46
Potassium 4.2 mmol/L (3.5-5.1) 07/14/24 05:46
Chloride 105 mmol/L (98-107) 07/14/24 05:46
Carbon Dioxide 27 mmol/L (22-30) 07/14/24 05:46
BUN 26 mg/dl (9-20) H 07/14/24 05:46
Creatinine 2.4 mg/dL (0.7-1.3) H 07/14/24 05:46
eGFR 29.76 07/14/24 05:46
Glucose 116 mg/dl (70-99) H 07/14/24 05:46
Calcium 8.4 mg/dl (8.4-10.2) 07/14/24 05:46
Aut-T-Ieqvtlcelme Pept 18495 pg/ml 07/09/24 18:23
Albumin 3.4 g/dl (3.5-5.0) L 07/09/24 18:23
Physical Exam
-
Vital Signs:
Vital Signs
Temp Pulse Resp BP Pulse Ox
97.9 F 79 16 169/86 95
07/14/24 07:15 07/14/24 08:30 07/14/24 07:15 07/14/24 08:30 07/14/24 10:36
Cardiovascular:: Regular rate and rhythm
Respiratory:: Bilateral: Coarse
Lung Excursion:: Normal
Abdomen:: Nontender and Soft
Bowel Sounds:: Normal
Extremity Edema:: None: Bilateral:
--- NOTE | 2024-07-14 11:24 | W.PN.ID1 ---
Date of Service
Date of Service: July 14, 2024
Today's Communication
Continue antibiotics.
Assessment / Plan
Severe left foot SSTI with abscess
Left fourth metatarsal osteomyelitis.
DM2
Peripheral Neuropathy
Hypertension
CKD III
Anxiety / Depression
Lumbar DDD
Recommendations:
Continue with empiric antibiotics (vancomycin/Zosyn.)
Wound culture has been obtained, with preliminary identification of MRSA.
Will await further culture data to guide antimicrobial selection/de-escalation.
Awaiting I&D (heading to OR now.)
Monitor white count and temperature curve.
Further recommendations as additional data is returned.
����������������������������������������������������������
Chief Complaint
-: Other (Left foot infection / osteomyelitis)
Subjective / Review of Systems
Review of Systems: No Fever and No Chills
Vital Signs / Physical Exam
Vital Signs
Vital Signs
Temp Pulse Resp BP Pulse Ox
97.9 F 79 16 169/86 95
07/14/24 07:15 07/14/24 08:30 07/14/24 07:15 07/14/24 08:30 07/14/24 10:36
Physical Exam
Constitutional: No Acute Distress, Comfortable and Non-toxic
Eyes: Sclera Anicteric
Cardiovascular: S1/S2; Negative S3/S4
Pulmonary: Non Labored
Gastrointestinal: Soft and Non Tender
Extremities: Edema (LLE); Negative Cyanosis or Erythema
Wound: Other (Left foot dressed. Small amount serous strikethrough.)
Neurological: Awake and Alert
Psychological: Calm
Objective Data
Lab Data
Lab Results
07/12/24 10:22
07/14/24 05:46
ESR 93 mm/hour (0-20) H 07/09/24 18:23
Estimated Creat Clear 36 ml/min 07/14/24 05:46
Lactic Acid 0.5 mmol/L (0.7-2.0) L 07/09/24 19:38
Total Bilirubin 0.7 mg/dl (0.2-1.3) 07/09/24 18:23
AST 31 U/L (17-59) 07/09/24 18:23
ALT 56 U/L (0-50) H 07/09/24 18:23
Alkaline Phosphatase 402 U/L (38-126) H 07/09/24 18:23
C-Reactive Protein 63.10 mg/L (0.0-10.00) H 07/09/24 18:23
Most recent labs reviewed.
Micro Results:
07/09/24 19:38 Blood Culture - Preliminary
Blood/Venous No Growth in 4 days- Final report to follow
07/09/24 19:38 Blood Culture - Preliminary
Blood/Venous No Growth in 4 days- Final report to follow
07/09/24 18:23 Wound Culture - Final
Foot - Left Staph aureus MRSA
Gram Stain - Final
07/10/24 00:02 MRSA Screen - Final
Nose No Methicillin Resistant Staphylococcus aureus isolated.
07/09/24 18:23 Influenza Types A & B (LAURA) - Final
Nasal Swab Negative for Influenza A & B, NAAT
Negative results must be combined with clinical observations
and patient history.
Nucleic Acid Amplification test (NAAT)performed on the
[employer] platform.
Imaging:
07/10/2024 MRI left lower extremity: Rodney confluent osteomyelitis throughout the entire fourth metatarsal and majority of the fourth digit proximal phalanx. The fourth digit middle and distal phalanges demonstrate osteitis without rodney
osteomyelitis. There is a prominent ulceration along the lateral forefoot with underlying fluid tract and phlegmon/soft tissue abscess measuring up to 2.1 x 2.6 x 2.9 cm.
07/09/2024 X-ray left foot: There are postoperative changes of the distal fifth metatarsal and fifth toe amputation. A small soft tissue defect along the lateral aspect of the forefoot is noted. There is erosion of the fourth metatarsal head.
Mild degenerative changes of the first metatarsal phalangeal joint noted. There are likely hammertoe deformities. Erosions along the lateral aspect of the fourth metatarsal head are new from prior radiographs from 2021 and may represent
osteomyelitis. Please see full dictation for additional detail.
Care Review
Plan reviewed with: Physician (Hospitalist)
[2024-07-14] MEDS: ZOSYN IV (11:51)
--- NOTE | 2024-07-14 12:28 | W.SUR.POST ---
Surgical Immediate Post Op
Note
Pre Op Diagnosis: Left Foot abscess with osteomyelitis LT 4th metatarsal
Post Op Diagnosis: Same as above
Procedure Performed: LT foot I & D with bone resection form Lt 4th metatarsal
Primary Surgeon: Dr. Valenzuela
Secondary Surgeons: None
Anesthesia: MAC with local block
Estimated Blood Loss: 5cc's
Fluids: none
Drains/Shunts: No
Specimens/Cultures: Aerobic and anaerobic cultures and bone cultures sent for path and microbiology
Doppler/Duplex/Angio (Y/N): N
Complications: none
Operative Findings: there was brittle distal 4th metatarsal with loose fragments
No deep tissue purulence or any drainage , no deep tissue necrosis noted
[2024-07-14 12:30] LABS: Glucose - Point of Care 132 mg/dl (70-99)
--- NOTE | 2024-07-14 12:42 | CM ---
Chart reviewed.
Patient off floor OR
LT foot I & D with bone resection form Lt 4th metatarsal
Await PT/OT post-op evals.
PLAN: Await post-op PT/OT eval
[2024-07-14] MEDS: FERRLECIT 110 MG IV (13:13)
[2024-07-14] MEDS: APRESOLINE 5 MG IV (13:21)
--- NOTE | 2024-07-14 13:29 | PTCARENOTE ---
Received patient from PACU s/p L foot wound debridement. Patient's BP 176/87 RUE, PRN hydralazine administered by this RN per MD order. L foot dressing dry and intact. Patient educated on NWB L foot order for today and tomorrow; call lorraine, urinal,
and bedside commode within patient reach, patient verbalizes understanding. Patient ordered 24hr urine collection per nephro, told to ring call lorraine to let RN and tech know of any urine output into urinal. Patient verbalizes understanding. Diet
order re-entered per podiatry. Patient states no concerns at this time.
[2024-07-14 13:55] LABS: Glucose - Point of Care 128 mg/dl (70-99)
--- NOTE | 2024-07-14 16:33 | PTCARENOTE ---
Patient with outstanding 24hr urine collection, no urine output since arriving to floor from PACU s/p L foot wound debridement. Patient bladder scanned for 849ml. Nephro made aware, stated to follow bladder scan straight cath protocol. Patient
straight cathed with assistance of Danisha LARRY for 1000 ml clear yellow urine. Patient tolerated procedure, states no concerns at this time.
[2024-07-14 17:22] LABS: Glucose - Point of Care 141 mg/dl (70-99)
[2024-07-14] MEDS: NOVOLOG FLEXPEN-LOW RESISTANCE SC (17:24)
[2024-07-14 19:25] LABS: Hepatitis B Surface Antigen Negative (Negative)
[2024-07-14 19:43] LABS: Hepatitis B Surface Antibody Negative; Hepatitis C Antibody Negative (Negative)
[2024-07-14 20:08] LABS: 24 Hour Urine Total Volume Random mL; Urine Collection Length Random hr; Urine Free Kappa Light Chains 499.91 mg/L (0.00-32.90); Urine Free Lambda Light Chains 183.29 mg/L (0.00-3.79)
[2024-07-14] MEDS: COREG 12.5 MG PO (20:15)
[2024-07-14] MEDS: HEPARIN 5000 UNITS SC (20:17)
[2024-07-14 21:22] LABS: ANA, IgG Reflex to HEp-2 None Detected (None Detected)
[2024-07-14 22:15] LABS: Glucose - Point of Care 171 mg/dl (70-99)
[2024-07-14 23:20] LABS: Myeloperoxidase Antibody 0 AU/mL (0-19); Serine Protease-3, IgG 35 AU/mL (0-19)
[2024-07-15] MEDS: ZOSYN 50 IV ×3 (00:24→12:55)
[2024-07-15 03:29] VITALS: BP 148/78
--- NOTE | 2024-07-15 05:10 | PTCARENOTE ---
24hr urine collection started at 2200.
[2024-07-15 05:58] VITALS: BMI 22.6
[2024-07-15 07:14] LABS: Hematocrit 25.8 % (39.0-52.0); Hemoglobin 8.4 g/dL (13.0-18.0); Mean Corp Hgb Conc. 32.6 g/dL (33.0-37.0); Mean Corpuscular Hgb 27.4 pg (27.0-31.0); Mean Platelet Volume 9.3 fL (7.4-10.4); Platelet Count 370 10^3/uL (130-400); Red Blood Cell Count 3.07 10^6/uL (4.70-6.10); Red Cell Dist. Width 14.4 % (11.5-14.5); White Blood Cell Count 7.1 10^3/uL (4.8-10.8)
[2024-07-15 07:15] VITALS: BP 158/78
[2024-07-15 07:25] LABS: Vancomycin Random 17.1 ug/ml
[2024-07-15 07:29] LABS: Glucose - Point of Care 130 mg/dl (70-99)
[2024-07-15 07:36] LABS: ALT (SGPT) 18 U/L (0-50); AST (SGOT) 15 U/L (17-59); Albumin 2.8 g/dl (3.5-5.0); Alkaline Phosphatase 186 U/L (38-126); Blood Urea Nitrogen 28 mg/dl (9-20); Calcium 8.3 mg/dl (8.4-10.2); Carbon Dioxide 26 mmol/L (22-30); Chloride 105 mmol/L (98-107); Estimated Creatinine Clearance 34 ml/min; Glucose 110 mg/dl (70-99); Potassium 4.2 mmol/L (3.5-5.1); Sodium 141 mmol/L (135-145); Total Bilirubin 0.3 mg/dl (0.2-1.3); eGFR 27.04
[2024-07-15] MEDS: NOVOLOG FLEXPEN-LOW RESISTANCE SC ×2 (07:36→17:16)
--- NOTE | 2024-07-15 08:09 | PHA.VAN.FU ---
Vancomycin Assessment / Plan
- Assessment
Renal Function: Stable
WBC's are: WNL
In the past 24 hrs, patient has been: Afebrile
Concomitant Antimicrobials: piperacillin/tazobactam
- Assessment - Therapeutic Drug Monitoring
Random Level: 17.1 - drawn ~21H after previous dose of 1g
- Dosing Plan
Dosing by Level: Hold off on dosing today
- Monitoring Plan
Random Level: 07/16 0600
- Follow Up
Pharmacy will continue to follow.
Vancomycin Follow UP
- -
Patient Age: 63
Patient Sex: Male
Vancomycin Day #: 6
Indication: Bone And Joint
Requesting Provider: Marely Camarillo
Pertinent Antimicrobial Allergies:
NKDA
Height / Weight:
Height 6 ft 3 in
Actual Weight 81.919 kg
Pertinent Past Medical History: DM II, CKD
- Vital Signs / Lab Results
Temp Pulse Resp BP Pulse Ox
98.2 F 80 18 148/78 96
07/15/24 03:29 07/15/24 03:29 07/15/24 03:29 07/15/24 03:29 07/15/24 03:29
Lab Results - Hematology
07/12/24 07/15/24
10:22 05:31
WBC 6.4 7.1
Lab Results - Chemistry
07/12/24 07/13/24 07/14/24
10: 04:52 05:46
BUN 30 H 28 H 26 H
Creatinine 2.2 H 2.3 H 2.4 H
Estimated Creat Clear 41 39 36
Albumin
07/15/24
05:31
BUN 28 H
Creatinine 2.6 H
Estimated Creat Clear 34
Albumin 2.8 L
Microbiology Results
07/09/24 19:38 Blood Culture - Final
Blood/Venous No Growth - Final Report
07/09/24 19:38 Blood Culture - Final
Blood/Venous No Growth - Final Report
07/14/24 11:53 Gram Stain - Preliminary
Foot - Left
07/14/24 11:53 Gram Stain - Preliminary
Foot - Left
Therapeutic Drug Monitoring
Random Vancomycin 17.1 ug/ml 07/15/24 05:30
--- NOTE | 2024-07-15 08:21 | W.PN.POD ---
Today's Communication
Today's Communication
Pending bone cultures,
Assessment / Plan
-
A/P : S/P LT foot I & D with 4th metatarsal debridement POD #1
Left foot cellulitis with abscess - resolved
Left fourth proximal phalanx and metatarsal osteomyelitis.
Diabetic neuropathy.
H/o of left foot 5th toe and distal metatarsal bone resection with multiple d�bridements
Poorly controlled diabetic.
Non compliance with using off loading shoes
Plan : Changed surgical dressings, repacked the ulcer from plantar aspect, applied compressive dressings
Can restart Heparin.
Elevate LT foot when at rest
Patient can use walker and wedge shoe to LT foot and ambulate as tolerated.
Discussed with patient that most of the 4th metatarsal bone was debrided due to infection, unhealthy bone, but will need retirement Abx to help the remaining bone infection.
Discussed strict NWB to LT foot with wedge shoe and walker , discussed about reinfection, more amputations, risk of loosing the limb .
Will order wedge shoe nelda T foot from [facility] [place]
Continue antibiotics per ID.
Subjective
Chief Complaint
left foot infected diabetic ulcer and osteomyelitis
Subjective
Patient seen at bedside, doing fine, denies any LT foot or calf pain, no fever, chills, Minimal strike through bleeding in surgical dressings noted
Objective
Temp Pulse Resp BP Pulse Ox
98.2 F 80 18 148/78 96
07/15/24 03:29 07/15/24 03:29 07/15/24 03:29 07/15/24 03:29 07/15/24 03:29
07/15/24 05:31
07/15/24 05:31
Vital Signs and Lab results were reviewed.
LT foot intact pedal pulses .
Resolved erythema, mild edematous foot
LT foot surgical site is clean, dry, no active bleeding, plantar ulcer with deep tissue void, no active bleeding , no palpable bone noted.
Lt dorsal foot incision is clean, dry, intact sutures, no drainage, no SOI, no new discoloration or any necrosis noted
[2024-07-15] MEDS: FLOMAX 0.4 MG PO (08:27)
[2024-07-15] MEDS: NEURONTIN 300 MG PO ×2 (08:27→20:39)
[2024-07-15] MEDS: WELLBUTRIN SR (12 hour sustained release) 150 MG PO ×2 (08:28→20:40)
[2024-07-15] MEDS: ATIVAN 1 MG PO ×3 (08:28→21:54)
[2024-07-15] MEDS: COREG 12.5 MG PO ×2 (08:28→20:40)
[2024-07-15] MEDS: VISBIOME 1 CAP PO (08:28)
[2024-07-15] MEDS: HEPARIN 5000 UNITS SC ×2 (08:28→20:37)
[2024-07-15] MEDS: LASIX 40 MG PO (08:28)
--- NOTE | 2024-07-15 09:45 | W.PN.CD ---
Today's Communication / Plan
-
keep even
will arrange op follow up given new dx of hfpef
I will sign off
Impression / Plan
-
HFpEF
- Now on 40 mg lasix po, and appears euvolemic
- GDMT will await resolution of IVY and acute infection
- Na+/Fluid restriction/HF consults/pt education in place
- would keep even
-If renal function stablizes can consider SGLT2i as op when ok with renal. MRA/ARB if renal recovery
HTN
- improving coreg to 12.5 mg bid start last
- at some point can add valsartan and spironolactone for HFpEF, holding given IVY and infection
Left foot abscess/cellulitis/osteo (MRI)
- IV ABX per ID.
- podiatry following S/P LT foot I & D with 4th metatarsal debridement 07/14/24
- No arterial disease on TALIA/arterial studies
Anemia, Hgb 8.5, MCV/RDW normal
IVY
- nephrology consulted.
DM
Subjective:
No new complaints today, his am cough is resolved, swelling in the legs improved
Echo 07/10/24: mild concentric LVH with EF 60-65%, mild RVE, significant LAE, no evidence of significant valvular disease. Diastolic dysfxn with elevated LA pressure suspected
Physical Exam
Vital Signs/Labs
Vital Signs
Temp Pulse Resp BP Pulse Ox
97.9 F 78 18 158/78 97
07/15/24 07:15 07/15/24 07:15 07/15/24 07:15 07/15/24 07:15 07/15/24 07:15
07/14/24 07/15/24 07/16/24
06:59 06:59 06:59
Actual Weight 81.919 kg
07/15/24 05:31
10/29/24 05:31
07/09/24
18:23
Xdl-E-Rvenwrhfwjm Pept
Physical Exam
Constitutional: No acute distress
Cardiovascular: Rhythm & rate is regular, JVD pressure is normal and Pedal edema present (trace edema in the left ankle (surgical side))
Respiratory: Respiratory effort normal, Lungs clear to auscul., Wheeze Absent, Crackles Absent and Rhonchi Absent
Neuro/Psych: AO x 3
Data Reviewed
-
Date of Service: July 15, 2024
Medical Decision Making: Review of Case with other Provider (Dr Segal will sign off)
--- NOTE | 2024-07-15 10:52 | W.PN.NEPH.PH ---
Today's Communication / Plan
-
24 hr urine
Assessment/Plan
-
Impression:
Acute kidney injury
CKD stage IIIb baseline creatinine 1.6
Metabolic acidosis
Edema
Shortness of breath
Left Foot osteomyelitis
HTN
+PR3 Ab
Plan:
check 24 hour urine protein , if nephrotic, will need eventual renal biopsy given +PR3
follow BMP
hold lasix
-
-
Date of Service: July 15, 2024
CC / HPI / ROS
-
Chief Complaint:
IVY, ckd
History of Present Illness:
IVY/Cr up to 2.6
s/p I/D left foot 07/15
BP high stable
no fever
on abx for LLE osteo
Review of Systems:
no cp or sob
no n/v
no dysuria
Labs
-
Labs:
WBC 7.1 10^3/uL (4.8-10.8) 07/15/24 05:31
RBC 3.07 10^6/uL (4.70-6.10) L 07/15/24 05:31
Hgb 8.4 g/dL (13.0-18.0) L 07/15/24 05:31
Hct 25.8 % (39.0-52.0) L 07/15/24 05:31
Plt Count 370 10^3/uL (130-400) 07/15/24 05:31
Sodium 141 mmol/L (135-145) 07/15/24 05:31
Potassium 4.2 mmol/L (3.5-5.1) 07/15/24 05:31
Chloride 105 mmol/L (98-107) 07/15/24 05:31
Carbon Dioxide 26 mmol/L (22-30) 07/15/24 05:31
BUN 28 mg/dl (9-20) H 07/15/24 05:31
Creatinine 2.6 mg/dL (0.7-1.3) H 07/15/24 05:31
eGFR 27.04 07/15/24 05:31
Glucose 110 mg/dl (70-99) H 07/15/24 05:31
Calcium 8.3 mg/dl (8.4-10.2) L 07/15/24 05:31
Ppt-H-Yvfvyxglykt Pept 08128 pg/ml 07/09/24 18:23
Albumin 2.8 g/dl (3.5-5.0) L 07/15/24 05:31
Physical Exam
-
Vital Signs:
Vital Signs
Temp Pulse Resp BP Pulse Ox
97.9 F 78 18 158/78 97
07/15/24 07:15 07/15/24 07:15 07/15/24 07:15 07/15/24 07:15 07/15/24 07:15
Cardiovascular:: Regular rate and rhythm
Respiratory:: Bilateral: Coarse
Lung Excursion:: Normal
Abdomen:: Nontender and Soft
Bowel Sounds:: Normal
Extremity Edema:: None: Bilateral:
[2024-07-15 11:15] VITALS: BP 157/84
[2024-07-15 12:27] LABS: Glucose - Point of Care 166 mg/dl (70-99)
[2024-07-15] MEDS: NOVOLOG FLEXPEN-LOW RESISTANCE 1 UNITS SC (12:54)
--- NOTE | 2024-07-15 13:54 | W.PN.HOSP.TC ---
Today's Communication/Plan
-
f/u intraop culture report
f/u renal function
abx per ID
Assessment / Plan
Assessment / Plan
Toe Xray
IMPRESSION:
Postoperative changes of distal fifth metatarsal and phalanx amputation. There is a soft tissue defect along the lateral aspect of the forefoot. There is an erosion along the lateral aspect of the fourth metatarsal head which is new from prior
radiograph in 2021 and may represent osteomyelitis.
Mild degenerative changes of the first MTP.
MRI
IMPRESSION:
Rodney confluent osteomyelitis throughout the entire fourth metatarsal and majority of the fourth digit proximal phalanx. The fourth digit middle and distal phalanges demonstrate osteitis without rodney osteomyelitis.
Osteitis throughout the third digit without rodney osteomyelitis.
Prominent ulceration along the lateral forefoot with underlying fluid tract and phlegmon/soft tissue abscess measuring up to 2.1 x 2.6 x 2.9 cm.

1. Diabetic foot infection - Left foot
-Given for spontaneously opening and draining left foot wound
-X-ray and MRI foot report as above
-Lower extremity arterial Doppler normal
-s/p LT foot I & D with bone resection form Lt 4th metatarsal on 07/14
-Intraoperative culture growing Staphylococcus aureus, further susceptibility testing pending
-Antibiotics adjusted to vancomycin and Unasyn
-ID following and help appreciated
2. IVY On CKD IIIB
Nephrotic range proteinuria
-Baseline cr 1.5-1.7, currently elevated to 2.6
-Spot check showing nephrotic range proteinuria 4.3g/24hr. for 24-hour urine collection has been ordered
-Normal C3/C4 level. BRANDON/MPO negative. PR3 Ab marginally positive 35 (normal 0-19)
-Nephrology considering renal biopsy based on clinical course
-Discussed with ID antibiotics adjusted to help with nephrotoxicity
3. Metabolic acidosis
-resolved
4. Acute on chronic HFpEF, EF 60-65%
-CXR and exam not consisted with HF
-Monitor volume status
-Cardiology help appreciated, lasix on hold with renal dysfunction
5. Type II DM
-Maintain on insulin sliding scale/Accu-Cheks
Full code
Heparin subq
Anticipated Discharge: 24 - 48 hours
Subjective/Interval History
-
Date of Service: July 15, 2024
Denies of any foot pain
Afebrile overnight
No new issues
Objective Data
-
Labs:
Laboratory Results
07/15/24
05:31
WBC 7.1
Hgb 8.4 L
Hct 25.8 L
Plt Count 370
Sodium 141
Potassium 4.2
Chloride 105
Carbon Dioxide 26
BUN 28 H
Creatinine 2.6 H
Glucose 110 H
Calcium 8.3 L
Total Bilirubin 0.3
AST 15 L
ALT 18
Alkaline Phosphatase 186 H
Vital Signs:
Vital Signs
Temp Pulse Resp BP Pulse Ox
98.1 F 77 16 157/84 97
07/15/24 11:15 07/15/24 11:15 07/15/24 11:15 07/15/24 11:15 07/15/24 11:15
I&O
07/14/24 07/15/24 07/16/24
06:59 06:59 06:59
Intake Total 520 / 520 1590 / 1590
Output Total 2450 / 2450
Balance 520 / 520 -860 / -860
Review of Systems
-
Respiratory: Reports No Symptoms
Cardiac: Reports No Symptoms
Abdomen/GI: Reports No Symptoms
Physical Exam
-
General: No Apparent Distress and Comfortable
HEENT: Negative Oxygen
Respiratory: Clear to Auscultation
Cardiac: Regular Rhythm and S1/S2; Negative Murmur or Rub
GI: Soft, Nontender and Nondistended
Musculoskeletal: No Edema and Other (Left leg dressing )
Neuro: Awake, Alert, Oriented, No Motor Deficits and Nonfocal/Grossly Intact
Psych: Calm
--- NOTE | 2024-07-15 13:57 | CM ---
Patient seen at bedside.
Post op L foot I&D
Has had [facility] in past
PT screening only
tt Dr. Segal
Await PT/OT evals
PLAN: Discharge when stable, await PT/OT evals.
[2024-07-15] MEDS: FERRLECIT 110 MG IV (14:25)
[2024-07-15 15:10] VITALS: BP 164/81
[2024-07-15] MEDS: UNASYN IV ×2 (15:32→20:42)
--- NOTE | 2024-07-15 16:45 | W.PN.ID1 ---
Date of Service
Date of Service: July 15, 2024
Today's Communication
continue vancomycin
switched zosyn to unasyn
will discuss proximal phalanx 4th digit with podiatry tomorrow
Assessment / Plan
Severe left foot SSTI with abscess
Left fourth metatarsal osteomyelitis.
DM2
Peripheral Neuropathy
Hypertension
CKD III
Anxiety / Depression
Lumbar DDD
Recommendations:
Continue with empiric antibiotics vancomycin; zosyn transitioned to unasyn
Wound culture has been obtained, with preliminary identification of MRSA - culture may be polymicrobial
Will await further culture data to guide antimicrobial selection/de-escalation.
Residual osteomyelitis is suspected; will discuss proximal phalanx osteomyelitis with podiatry tomorrow
Further recommendations as additional data is returned.
����������������������������������������������������������
Chief Complaint
-: Other (Left foot infection / osteomyelitis)
Subjective / Review of Systems
afebrile
bp stable
cr 2.6 - increased
Vital Signs / Physical Exam
Vital Signs
Vital Signs
Temp Pulse Resp BP Pulse Ox
98.1 F 72 14 164/81 96
07/15/24 15:10 07/15/24 15:10 07/15/24 15:10 07/15/24 15:10 07/15/24 15:10
Physical Exam
Constitutional: No Acute Distress
Cardiovascular: Regular Rate and S1/S2; Negative Murmur or Rub
Pulmonary: Clear and Symmetric; Negative Wheezes or Rales
Gastrointestinal: Soft, Non Tender, Non Distended and Normal Bowel Sounds
Extremities: Other (deferred dressing take down)
Skin: Warm and Dry; Negative Rash or Jaundice
Objective Data
Lab Data
Lab Results
07/15/24 05:31
07/15/24 05:31
ESR 93 mm/hour (0-20) H 07/09/24 18:23
Estimated Creat Clear 34 ml/min 07/15/24 05:31
Lactic Acid 0.5 mmol/L (0.7-2.0) L 07/09/24 19:38
Total Bilirubin 0.3 mg/dl (0.2-1.3) 07/15/24 05:31
AST 15 U/L (17-59) L 07/15/24 05:31
ALT 18 U/L (0-50) 07/15/24 05:31
Alkaline Phosphatase 186 U/L (38-126) H 07/15/24 05:31
C-Reactive Protein 63.10 mg/L (0.0-10.00) H 07/09/24 18:23
Most recent labs reviewed.
Micro Results:
07/14/24 11:53 Anaerobic Culture - Preliminary
Foot - Left Culture pending. Anaerobic cultures are examined after 3
days incubation. Additional information to follow.
07/14/24 11:53 Wound Culture - Preliminary
Foot - Left Gram Stain - Preliminary
07/14/24 11:53 Tissue Culture - Preliminary
Foot - Left Staphylococcus aureus
Gram Stain - Preliminary
07/09/24 19:38 Blood Culture - Final
Blood/Venous No Growth - Final Report
07/09/24 19:38 Blood Culture - Final
Blood/Venous No Growth - Final Report
07/09/24 18:23 Wound Culture - Final
Foot - Left Staph aureus MRSA
Gram Stain - Final
07/10/24 00:02 MRSA Screen - Final
Nose No Methicillin Resistant Staphylococcus aureus isolated.
07/09/24 18:23 Influenza Types A & B (LAURA) - Final
Nasal Swab Negative for Influenza A & B, NAAT
Negative results must be combined with clinical observations
and patient history.
Nucleic Acid Amplification test (NAAT)performed on the
[employer] platform.
Imaging:
07/10/2024 MRI left lower extremity: Rodney confluent osteomyelitis throughout the entire fourth metatarsal and majority of the fourth digit proximal phalanx. The fourth digit middle and distal phalanges demonstrate osteitis without rodney
osteomyelitis. There is a prominent ulceration along the lateral forefoot with underlying fluid tract and phlegmon/soft tissue abscess measuring up to 2.1 x 2.6 x 2.9 cm.
07/09/2024 X-ray left foot: There are postoperative changes of the distal fifth metatarsal and fifth toe amputation. A small soft tissue defect along the lateral aspect of the forefoot is noted. There is erosion of the fourth metatarsal head.
Mild degenerative changes of the first metatarsal phalangeal joint noted. There are likely hammertoe deformities. Erosions along the lateral aspect of the fourth metatarsal head are new from prior radiographs from 2021 and may represent
osteomyelitis. Please see full dictation for additional detail.
Care Review
Plan reviewed with: Physician (dr marisol driver)
[2024-07-15 17:13] LABS: Glucose - Point of Care 117 mg/dl (70-99)
[2024-07-15 21:37] LABS: Glucose - Point of Care 168 mg/dl (70-99)
[2024-07-15 22:15] LABS: 24 Hour Urine Total Volume 1350 ml
[2024-07-15 23:10] VITALS: BP 148/87
[2024-07-16] VITALS (8 sets, daily range): BP systolic 142–178; BP diastolic 76–91; BMI 22.0
[2024-07-16 01:37] LABS: Albumin 2.39 g/dL (3.75-5.01); Alpha 1 Globulin 0.47 g/dL (0.19-0.46); SPEP IFE Reflex IFE Done; Total Protein-Electrophoresis 6.2 g/dL (6.3-8.2)
[2024-07-16] MEDS: UNASYN IV ×4 (02:19→20:18)
[2024-07-16 06:28] LABS: Hematocrit 26.5 % (39.0-52.0); Hemoglobin 8.6 g/dL (13.0-18.0); Mean Corp Hgb Conc. 32.5 g/dL (33.0-37.0); Mean Corpuscular Volume 86.3 fL (80.0-94.0); Mean Platelet Volume 9.4 fL (7.4-10.4); Platelet Count 348 10^3/uL (130-400); Red Blood Cell Count 3.07 10^6/uL (4.70-6.10); Red Cell Dist. Width 14.3 % (11.5-14.5); White Blood Cell Count 6.7 10^3/uL (4.8-10.8)
[2024-07-16 06:47] LABS: Vancomycin Random 12.4 ug/ml
[2024-07-16 06:52] LABS: 24 Hour Urine Creatinine 1.105 gm/day (1.0-2.0)
[2024-07-16 06:53] LABS: Urine Protein 394 mg/dl (0-12)
[2024-07-16 06:54] LABS: IgA 897 mg/dL (68-408); IgG 1255 mg/dL (768-1632); IgM 31 mg/dL (35-263)
[2024-07-16 06:58] LABS: Blood Urea Nitrogen 28 mg/dl (9-20); Calcium 8.4 mg/dl (8.4-10.2); Carbon Dioxide 24 mmol/L (22-30); Chloride 104 mmol/L (98-107); Estimated Creatinine Clearance 35 ml/min; Glucose 115 mg/dl (70-99); Sodium 143 mmol/L (135-145); eGFR 28.34
[2024-07-16 07:21] LABS: Glucose - Point of Care 136 mg/dl (70-99)
[2024-07-16] MEDS: NOVOLOG FLEXPEN-LOW RESISTANCE SC ×2 (07:23→16:21)
[2024-07-16] MEDS: COREG 12.5 MG PO ×2 (07:49→20:18)
[2024-07-16] MEDS: NEURONTIN 300 MG PO ×2 (07:49→20:18)
[2024-07-16] MEDS: HEPARIN 5000 UNITS SC (07:49)
[2024-07-16] MEDS: ATIVAN 1 MG PO ×3 (07:50→22:10)
[2024-07-16] MEDS: FLOMAX 0.4 MG PO (07:50)
[2024-07-16] MEDS: VISBIOME 1 CAP PO (07:50)
[2024-07-16] MEDS: WELLBUTRIN SR (12 hour sustained release) 150 MG PO ×2 (07:50→20:19)
--- NOTE | 2024-07-16 08:46 | PHA.VAN.FU ---
Vancomycin Assessment / Plan
- Assessment
Renal Function: Stable
WBC's are: WNL
In the past 24 hrs, patient has been: Afebrile
Concomitant Antimicrobials: ampicillin/sulbactam
- Assessment - Therapeutic Drug Monitoring
Random Level: 12.4 - drawn ~24H after previous level of 17.1
Calculated ke: 0.0134
Calculated half life (H): 51.8
- Dosing Plan
Dosing by Level: Re-dose today (Vanc 1000mg)
- Monitoring Plan
No level(s) ordered at this time: consider level for 07/18 based on half-life
- Follow Up
Pharmacy will continue to follow.
Vancomycin Follow UP
- -
Patient Age: 63
Patient Sex: Male
Vancomycin Day #: 7
Indication: Bone And Joint
Requesting Provider: Marely Benítez / Marquise
Pertinent Antimicrobial Allergies:
NKDA
Height / Weight:
Height 6 ft 3 in
Actual Weight 79.968 kg
Pertinent Past Medical History: DM II, CKD
- Vital Signs / Lab Results
Temp Pulse Resp BP Pulse Ox
97.8 F 81 18 156/81 96
07/16/24 07:10 07/16/24 07:49 07/16/24 07:10 07/16/24 07:49 07/16/24 07:10
Lab Results - Hematology
07/15/24 07/16/24
05:31 05:31
WBC 7.1 6.7
Lab Results - Chemistry
07/14/24 07/15/24 07/16/24
05:46 05:31 05:31
BUN 26 H 28 H 28 H
Creatinine 2.4 H 2.6 H 2.5 H
Estimated Creat Clear 36 34 35
Albumin 2.8 L
Microbiology Results
07/14/24 11:53 Tissue Culture - Preliminary
Foot - Left Staph aureus MRSA
Gram Stain - Preliminary
07/14/24 11:53 Anaerobic Culture - Preliminary
Foot - Left Culture pending. Anaerobic cultures are examined after 3
days incubation. Additional information to follow.
07/14/24 11:53 Wound Culture - Preliminary
Foot - Left Gram Stain - Preliminary
07/09/24 19:38 Blood Culture - Final
Blood/Venous No Growth - Final Report
07/09/24 19:38 Blood Culture - Final
Blood/Venous No Growth - Final Report
Therapeutic Drug Monitoring
Random Vancomycin 12.4 ug/ml 07/16/24 05:31
[2024-07-16] MEDS: VANCOCIN 200 IV (09:34)
--- NOTE | 2024-07-16 10:08 | W.PN.NEPH.PH ---
Today's Communication / Plan
-
potential kidney biopsy once infection controlled
Assessment/Plan
-
Impression:
Acute kidney injury
CKD stage IIIb baseline creatinine 1.6
Metabolic acidosis
Edema
Shortness of breath
Left Foot osteomyelitis
HTN
+PR3 Ab
Plan:
IVY-cr improving slowly 2.5
mild retention, follow bladder scan 400cc, SC prn , cont flomax
low threshold for manzanares if persists
nephrotic range of proteinuria on 24hr 5.3gm/day, PR3 slightly up
likely need kidney biopsy when controlled infection of foot
BP are high, add low dose Amlodipine
hold ACEI still
follow BMP
hold lasix
-
-
Date of Service: July 16, 2024
CC / HPI / ROS
-
Chief Complaint:
IVY, ckd
History of Present Illness:
IVY/Cr down slightly at 2.5
s/p I/D left foot 07/15
BP high stable
no fever
on abx for LLE osteo
Review of Systems:
no cp or sob
no n/v
no dysuria, but retention 400cc
Labs
-
Labs:
WBC 6.7 10^3/uL (4.8-10.8) 07/16/24 05:31
RBC 3.07 10^6/uL (4.70-6.10) L 07/16/24 05:31
Hgb 8.6 g/dL (13.0-18.0) L 07/16/24 05:31
Hct 26.5 % (39.0-52.0) L 07/16/24 05:31
Plt Count 348 10^3/uL (130-400) 07/16/24 05:31
Sodium 143 mmol/L (135-145) 10/30/24 05:31
Potassium 4.0 mmol/L (3.5-5.1) 07/16/24 05:31
Chloride 104 mmol/L (98-107) 07/16/24 05:31
Carbon Dioxide 24 mmol/L (22-30) 07/16/24 05:31
BUN 28 mg/dl (9-20) H 07/16/24 05:31
Creatinine 2.5 mg/dL (0.7-1.3) H 07/16/24 05:31
eGFR 28.34 07/16/24 05:31
Glucose 115 mg/dl (70-99) H 07/16/24 05:31
Calcium 8.4 mg/dl (8.4-10.2) 07/16/24 05:31
Bsj-P-Uflulqsikrg Pept 61625 pg/ml 07/09/24 18:23
Albumin 2.8 g/dl (3.5-5.0) L 07/15/24 05:31
Physical Exam
-
Vital Signs:
Vital Signs
Temp Pulse Resp BP Pulse Ox
97.8 F 81 18 156/81 96
07/16/24 07:10 07/16/24 07:49 07/16/24 07:10 07/16/24 07:49 07/16/24 07:10
Cardiovascular:: Regular rate and rhythm
Respiratory:: Bilateral: CTA
Lung Excursion:: Normal
Abdomen:: Nontender and Soft
Extremity Edema:: +1: Left: and None: Right:
Manzanares Catheter: No
--- NOTE | 2024-07-16 10:47 | PTCARENOTE ---
Patient bladder scanned after urinating in bathroom per nephro request for 406ml. Patient assisted into bathroom, urinated small amount of urine, repeat bladder scan 375ml. Patient educated by this RN on need to straight cath bladder for bladder
scan >400ml, patient refusing, stated to this RN 'I'm not doing that.' Patient stated to this RN 'I shouldn't need to have that done if I'm not having any pain, this is how I've always been.' This RN educated patient on importance of straight cath.
MD and nephro made aware, no new orders at this time.
--- NOTE | 2024-07-16 11:17 | W.PN.ID1 ---
Date of Service
Date of Service: July 16, 2024
Today's Communication
recommend amputation of the 4th digit
continue current antibiotics
Assessment / Plan
Severe left foot SSTI with abscess
Left fourth metatarsal osteomyelitis.
DM2
Peripheral Neuropathy
Hypertension
CKD III
Anxiety / Depression
Lumbar DDD
Recommendations:
Continue vancomycin
Continue unasyn while following cultures another day
Wound culture has been obtained, with preliminary identification of MRSA - culture may be polymicrobial
Will await further culture data to guide antimicrobial selection/de-escalation.
Residual osteomyelitis is suspected in the metatarsal and also throughout the distal phalange where bone is notably moth eaten. The distal phalange is not contributing to patients ability to walk at this point. Would minimize the residual infected
bone (particularly as this digit is not contributing to his ability to walk) with amputation of the 4th digit. He will still need further IV antibiotics after this procedure
Further recommendations as additional data is returned.
����������������������������������������������������������
Chief Complaint
-: Other (Left foot infection / osteomyelitis)
Subjective / Review of Systems
afebrile
reviewed xray with patient and podiatry
Vital Signs / Physical Exam
Vital Signs
Vital Signs
Temp Pulse Resp BP Pulse Ox
97.8 F 81 18 156/81 96
07/16/24 07:10 07/16/24 07:49 07/16/24 07:10 07/16/24 07:49 07/16/24 10:19
Physical Exam
Constitutional: No Acute Distress
Cardiovascular: Regular Rate and S1/S2; Negative Murmur or Rub
Pulmonary: Clear and Symmetric; Negative Wheezes or Rales
Gastrointestinal: Soft, Non Tender, Non Distended and Normal Bowel Sounds
Skin: Warm and Dry; Negative Rash or Jaundice
Wound: Other (surgical site clean, mild erythema, no purulent drainage, no dehiscence, 4th digit no erythema/warmth/tenderness)
Objective Data
Lab Data
Lab Results
07/16/24 05:31
07/16/24 05:31
ESR 93 mm/hour (0-20) H 07/09/24 18:23
Estimated Creat Clear 35 ml/min 07/16/24 05:31
Lactic Acid 0.5 mmol/L (0.7-2.0) L 07/09/24 19:38
Total Bilirubin 0.3 mg/dl (0.2-1.3) 07/15/24 05:31
AST 15 U/L (17-59) L 07/15/24 05:31
ALT 18 U/L (0-50) 07/15/24 05:31
Alkaline Phosphatase 186 U/L (38-126) H 07/15/24 05:31
C-Reactive Protein 63.10 mg/L (0.0-10.00) H 07/09/24 18:23
Most recent labs reviewed.
Micro Results:
07/14/24 11:53 Tissue Culture - Preliminary
Foot - Left Staph aureus MRSA
Gram Stain - Preliminary
07/14/24 11:53 Anaerobic Culture - Preliminary
Foot - Left Culture pending. Anaerobic cultures are examined after 3
days incubation. Additional information to follow.
07/14/24 11:53 Wound Culture - Preliminary
Foot - Left Gram Stain - Preliminary
07/09/24 19:38 Blood Culture - Final
Blood/Venous No Growth - Final Report
07/09/24 19:38 Blood Culture - Final
Blood/Venous No Growth - Final Report
07/09/24 18:23 Wound Culture - Final
Foot - Left Staph aureus MRSA
Gram Stain - Final
07/10/24 00:02 MRSA Screen - Final
Nose No Methicillin Resistant Staphylococcus aureus isolated.
07/09/24 18:23 Influenza Types A & B (LAURA) - Final
Nasal Swab Negative for Influenza A & B, NAAT
Negative results must be combined with clinical observations
and patient history.
Nucleic Acid Amplification test (NAAT)performed on the
[employer] platform.
Imaging:
07/10/2024 MRI left lower extremity: Rodney confluent osteomyelitis throughout the entire fourth metatarsal and majority of the fourth digit proximal phalanx. The fourth digit middle and distal phalanges demonstrate osteitis without rodney
osteomyelitis. There is a prominent ulceration along the lateral forefoot with underlying fluid tract and phlegmon/soft tissue abscess measuring up to 2.1 x 2.6 x 2.9 cm.
07/09/2024 X-ray left foot: There are postoperative changes of the distal fifth metatarsal and fifth toe amputation. A small soft tissue defect along the lateral aspect of the forefoot is noted. There is erosion of the fourth metatarsal head.
Mild degenerative changes of the first metatarsal phalangeal joint noted. There are likely hammertoe deformities. Erosions along the lateral aspect of the fourth metatarsal head are new from prior radiographs from 2021 and may represent
osteomyelitis. Please see full dictation for additional detail.
Care Review
Plan reviewed with: Physician (podiatry and IM service - amp of 4th toe)
[2024-07-16] MEDS: NORVASC 2.5 MG PO (11:58)
[2024-07-16 12:06] LABS: Glucose - Point of Care 160 mg/dl (70-99)
--- NOTE | 2024-07-16 12:09 | W.PN.POD ---
Today's Communication
Today's Communication
Will need medical clearance and cardiology clearance ..
Assessment / Plan
-
A/P : S/P LT foot I & D with 4th metatarsal debridement POD #2
Left foot cellulitis with abscess - resolved
Left fourth proximal phalanx and metatarsal osteomyelitis.
Diabetic neuropathy.
H/o of left foot 5th toe and distal metatarsal bone resection with multiple d�bridements
Poorly controlled diabetic.
Non compliance with using off loading shoes
Plan : Changed surgical dressings, applied compressive dressings
Abx per ID
Upon discussion with ID , given buttermaker helper Abx therapy in a compromised kidney function, planning for revisional procedure to proceed with 4th toe amputation to reduce the possible need for abx therapy and risk of reinfection etc
D/W Dr. Watters and cardiology and rest of the team.
Will proceed with toe amputation on 07/17/24.
Discussed all risks, complications, reinfection, more proximal amputations, loosing the limb. no guarantees given to save the limb or life.
Subjective
Chief Complaint
left foot infected diabetic ulcer and osteomyelitis
Subjective
Patient seen at bedside, doing fine, denies any LT foot or calf pain, no fever, chills, Minimal strike through bleeding in surgical dressings noted
Objective
Temp Pulse Resp BP Pulse Ox
97.8 F 77 18 178/91 96
07/16/24 07:10 07/16/24 11:58 07/16/24 07:10 07/16/24 11:58 07/16/24 10:19
07/16/24 05:31
07/16/24 05:31
Vital Signs and Lab results were reviewed.
LT foot intact pedal pulses .
Resolved erythema and resolved edema to LT foot
LT foot surgical site is clean, dry, no active bleeding, plantar ulcer with deep tissue void, no active bleeding , no palpable bone noted.
Lt dorsal foot incision is clean, dry, intact sutures, no drainage, no SOI, no new discoloration or any necrosis noted
--- NOTE | 2024-07-16 12:17 | PN.CDI ---
CDI
- -
CDI:
Physician Documentation Request
Admit Date: 07/09/24 21:55
Dear Doctor Philipp,
Hospitalist progress notes include a diagnosis of acute on chronic HFpEF.
Cardiology 'will arrange op follow up given new dx of hfpef'
Please clarify which of the following accurately represents the acuity of the heart failure:
____ Acute
Acute on Chronic
____ Other
Use of terms such as suspected, likely, concern for, or probable (associated with a specific diagnosis that is being evaluated, monitored, or treated as if it exists) are acceptable and can be coded in the inpatient setting, when documented at the
time of discharge.
Thank you,
Clari Isaac RN, BSN
CDI Specialist
tiger text
Please use your independent medical judgment in providing your response.
[2024-07-16] MEDS: NOVOLOG FLEXPEN-LOW RESISTANCE 1 UNITS SC (13:00)
--- NOTE | 2024-07-16 13:43 | W.PN.HOSP.TC ---
Today's Communication/Plan
-
for repeat OR tomorrow
eventual renal biopsy
Assessment / Plan
Assessment / Plan
Toe Xray
IMPRESSION:
Postoperative changes of distal fifth metatarsal and phalanx amputation. There is a soft tissue defect along the lateral aspect of the forefoot. There is an erosion along the lateral aspect of the fourth metatarsal head which is new from prior
radiograph in 2021 and may represent osteomyelitis.
Mild degenerative changes of the first MTP.
MRI
IMPRESSION:
Rodney confluent osteomyelitis throughout the entire fourth metatarsal and majority of the fourth digit proximal phalanx. The fourth digit middle and distal phalanges demonstrate osteitis without rodney osteomyelitis.
Osteitis throughout the third digit without rodney osteomyelitis.
Prominent ulceration along the lateral forefoot with underlying fluid tract and phlegmon/soft tissue abscess measuring up to 2.1 x 2.6 x 2.9 cm.

1. Diabetic foot infection from MRSA- Left foot
-Given for spontaneously opening and draining left foot wound
-X-ray and MRI foot report as above
-Lower extremity arterial Doppler normal
-s/p LT foot I & D with bone resection form Lt 4th metatarsal on 07/14
-Intraoperative culture growing MRSA
-Antibiotics adjusted to vancomycin and Unasyn, ID managing
-ID discussed with Pods and planned to have 4th meta-tarasal removed
2. IVY On CKD IIIB
Nephrotic range proteinuria
-Baseline cr 1.5-1.7, currently elevated to 2.6
-Spot check showing nephrotic range proteinuria 4.3g/24hr. for 24-hour urine collection has been ordered
-Normal C3/C4 level. BRANDON/MPO negative. PR3 Ab marginally positive 35 (normal 0-19)
-Nephrology considering renal biopsy based on clinical course
-Discussed with ID antibiotics adjusted to help with nephrotoxicity
3. Metabolic acidosis
-resolved
4. Acute on chronic HFpEF, EF 60-65%
-CXR and exam not consisted with HF
-Monitor volume status
-Cardiology help appreciated, lasix on hold with renal dysfunction
5. Type II DM
-Maintain on insulin sliding scale/Accu-Cheks
Full code
Heparin subq
Anticipated Discharge: > 48 hours
Subjective/Interval History
-
Date of Service: July 16, 2024
no issues overnight
no pain in the left foot
Objective Data
-
Labs:
Laboratory Results
07/16/24
05:31
WBC 6.7
Hgb 8.6 L
Hct 26.5 L
Plt Count 348
Sodium 143
Potassium 4.0
Chloride 104
Carbon Dioxide 24
BUN 28 H
Creatinine 2.5 H
Glucose 115 H
Calcium 8.4
Vital Signs:
Vital Signs
Temp Pulse Resp BP Pulse Ox
97.8 F 77 18 178/91 96
07/16/24 07:10 07/16/24 11:58 07/16/24 07:10 07/16/24 11:58 07/16/24 10:19
I&O
07/15/24 07/16/24 07/17/24
06:59 06:59 06:59
Intake Total 1590 / 1590 1979 / 1979
Output Total 2450 / 2450 555 / 555
Balance -860 / -860 1425 / 1425
Review of Systems
-
Respiratory: Reports No Symptoms
Cardiac: Reports No Symptoms
Abdomen/GI: Reports No Symptoms
Physical Exam
-
General: No Apparent Distress and Comfortable
HEENT: Negative Oxygen
Respiratory: Clear to Auscultation
Cardiac: Regular Rhythm and S1/S2; Negative Murmur or Rub
GI: Soft, Nontender and Nondistended
Musculoskeletal: No Edema and Other (Left leg dressing )
Neuro: Awake, Alert, Oriented, No Motor Deficits and Nonfocal/Grossly Intact
Psych: Calm
[2024-07-16] MEDS: FERRLECIT 110 MG IV (14:13)
[2024-07-16] MEDS: APRESOLINE 10 MG IV (15:17)
[2024-07-16 16:20] LABS: Glucose - Point of Care 142 mg/dl (70-99)
--- NOTE | 2024-07-16 16:37 | CM ---
Chart reviewed possible OR tomorrow, needs follow up.
Plan; To follow with patient for discharge planning needs.
[2024-07-16 22:22] LABS: Glucose - Point of Care 127 mg/dl (70-99)
[2024-07-17] VITALS (10 sets, daily range): BP systolic 146–169; BP diastolic 68–88; BMI 22.2
[2024-07-17] MEDS: UNASYN IV ×4 (01:51→19:59)
[2024-07-17 06:37] LABS: Blood Urea Nitrogen 31 mg/dl (9-20); Calcium 8.5 mg/dl (8.4-10.2); Carbon Dioxide 24 mmol/L (22-30); Chloride 106 mmol/L (98-107); Estimated Creatinine Clearance 34 ml/min; Glucose 115 mg/dl (70-99); Potassium 4.1 mmol/L (3.5-5.1); Sodium 143 mmol/L (135-145); eGFR 27.04
[2024-07-17] MEDS: NOVOLOG FLEXPEN-LOW RESISTANCE SC ×3 (06:55→15:47)
[2024-07-17 06:56] LABS: Glucose - Point of Care 133 mg/dl (70-99)
[2024-07-17] MEDS: VISBIOME 1 CAP PO (07:52)
[2024-07-17] MEDS: WELLBUTRIN SR (12 hour sustained release) 150 MG PO ×2 (07:52→19:59)
[2024-07-17] MEDS: ATIVAN 1 MG PO ×3 (07:52→22:25)
[2024-07-17] MEDS: COREG 12.5 MG PO ×2 (07:52→19:59)
[2024-07-17] MEDS: NEURONTIN 300 MG PO ×2 (07:52→19:58)
[2024-07-17] MEDS: FLOMAX 0.4 MG PO (07:52)
[2024-07-17] MEDS: NORVASC 2.5 MG PO (07:53)
--- NOTE | 2024-07-17 08:00 | PHA.VAN.FU ---
Vancomycin Assessment / Plan
- Assessment
Renal Function: Stable
In the past 24 hrs, patient has been: Afebrile
Concomitant Antimicrobials: ampicillin/sulbactam
- Dosing Plan
Dosing by Level: Hold off on dosing today (based on half-life patient will require extended re-dosing interval)
- Monitoring Plan
Random Level: 07/18 0600
Based on half-life from yesterday, currently anticipate re-dosing interval is Q48 to 72H
- Follow Up
Pharmacy will continue to follow.
Vancomycin Follow UP
- -
Patient Age: 63
Patient Sex: Male
Vancomycin Day #: 8
Indication: Bone And Joint
Requesting Provider: Marely Benítez / Marquise
Pertinent Antimicrobial Allergies:
NKDA
Height / Weight:
Height 6 ft 3 in
Actual Weight 80.422 kg
Pertinent Past Medical History: DM II, CKD
- Vital Signs / Lab Results
Temp Pulse Resp BP Pulse Ox
97.9 F 77 17 158/78 96
07/16/24 23:31 07/17/24 07:53 07/16/24 23:31 07/17/24 07:53 07/17/24 00:58
Lab Results - Hematology
07/15/24 07/16/24
05:31 05:31
WBC 7.1 6.7
Lab Results - Chemistry
07/15/24 07/16/24 07/17/24
05:31 05:31 05:22
BUN 28 H 28 H 31 H
Creatinine 2.6 H 2.5 H 2.6 H
Estimated Creat Clear 34 35 34
Albumin 2.8 L
Microbiology Results
07/14/24 11:53 Wound Culture - Preliminary
Foot - Left Staph aureus MRSA
Gram Stain - Preliminary
07/14/24 11:53 Tissue Culture - Final
Foot - Left Staph aureus MRSA
Gram Stain - Final
07/14/24 11:53 Anaerobic Culture - Preliminary
Foot - Left Culture pending. Anaerobic cultures are examined after 3
days incubation. Additional information to follow.
Therapeutic Drug Monitoring
Random Vancomycin 12.4 ug/ml 07/16/24 05:31
--- NOTE | 2024-07-17 12:04 | CM ---
Patient seen at bedside, awaiting procedure. Patient indicated that he has no needs at this time. CM will continue to follow for discharge planning needs.
Plan; pending PT/OT evaluations and medical treatment plan follow procedure
[2024-07-17 12:10] LABS: Glucose - Point of Care 110 mg/dl (70-99)
--- NOTE | 2024-07-17 12:40 | W.PN.NEPH.PH ---
Today's Communication / Plan
-
manzanares if persistent retention
K biopsy early next week
uptirate Amlodpine
Assessment/Plan
-
Impression:
Acute kidney injury
CKD stage IIIb baseline creatinine 1.6
Metabolic acidosis
Edema
Shortness of breath
Left Foot osteomyelitis
HTN
+PR3 Ab
Plan:
IVY-cr no sig change at 2.6
mild retention, follow bladder scan 400cc, SC prn , cont flomax
low threshold for manzanares if persists
nephrotic range of proteinuria on 24hr 5.3gm/day, PR3 slightly up
likely need kidney biopsy possible early next week as infection controlled
BP are high, cont Amlodipine 07/16
hold ACEI and lasix still
for OR today toe amputation
follow BMP
d/w primary
-
-
Date of Service: July 17, 2024
CC / HPI / ROS
-
Chief Complaint:
IVY, ckd
History of Present Illness:
IVY/Cr no sig change at 2.6
s/p I/D left foot 07/15
BP high
no fever
on abx for LLE osteo
no fever
Review of Systems:
no cp or sob
no n/v
no dysuria, but retention 238cc
Labs
-
Labs:
WBC 6.7 10^3/uL (4.8-10.8) 07/16/24 05:31
RBC 3.07 10^6/uL (4.70-6.10) L 07/16/24 05:31
Hgb 8.6 g/dL (13.0-18.0) L 07/16/24 05:31
Hct 26.5 % (39.0-52.0) L 07/16/24 05:31
Plt Count 348 10^3/uL (130-400) 07/16/24 05:31
Sodium 143 mmol/L (135-145) 07/17/24 05:22
Potassium 4.1 mmol/L (3.5-5.1) 07/17/24 05:22
Chloride 106 mmol/L (98-107) 07/17/24 05:22
Carbon Dioxide 24 mmol/L (22-30) 07/17/24 05:22
BUN 31 mg/dl (9-20) H 07/17/24 05:22
Creatinine 2.6 mg/dL (0.7-1.3) H 07/17/24 05:22
eGFR 27.04 07/17/24 05:22
Glucose 115 mg/dl (70-99) H 07/17/24 05:22
Calcium 8.5 mg/dl (8.4-10.2) 07/17/24 05:22
Qlb-C-Nugxlrbwsxf Pept 75604 pg/ml 07/09/24 18:23
Albumin 2.8 g/dl (3.5-5.0) L 07/15/24 05:31
Physical Exam
-
Vital Signs:
Vital Signs
Temp Pulse Resp BP Pulse Ox
98.2 F 77 16 158/78 95
07/17/24 07:15 07/17/24 07:53 07/17/24 07:15 07/17/24 07:53 07/17/24 09:59
Cardiovascular:: Regular rate and rhythm
Respiratory:: Bilateral: CTA
Lung Excursion:: Normal
Abdomen:: Nontender and Soft
Extremity Edema:: +1: Left: and None: Right:
Manzanares Catheter: No
--- NOTE | 2024-07-17 13:39 | W.PN.HOSP.TC ---
Addendum entered and electronically signed by Will Segal MD 07/18/24 08:32:
Adjust diagnosis:
Chronic diastolic HF - no signs of exacerbation
Original Note:
Today's Communication/Plan
-
f/u PVR volume after sx
low threshold for manzanares if any worsening retention issues
BP meds increased, f/u response
Assessment / Plan
Assessment / Plan
Toe Xray
IMPRESSION:
Postoperative changes of distal fifth metatarsal and phalanx amputation. There is a soft tissue defect along the lateral aspect of the forefoot. There is an erosion along the lateral aspect of the fourth metatarsal head which is new from prior
radiograph in 2021 and may represent osteomyelitis.
Mild degenerative changes of the first MTP.
MRI
IMPRESSION:
Rodney confluent osteomyelitis throughout the entire fourth metatarsal and majority of the fourth digit proximal phalanx. The fourth digit middle and distal phalanges demonstrate osteitis without rodney osteomyelitis.
Osteitis throughout the third digit without rodney osteomyelitis.
Prominent ulceration along the lateral forefoot with underlying fluid tract and phlegmon/soft tissue abscess measuring up to 2.1 x 2.6 x 2.9 cm.

1. Diabetic foot infection from MRSA- Left foot
-Given for spontaneously opening and draining left foot wound
-X-ray and MRI foot report as above
-Lower extremity arterial Doppler normal
-s/p LT foot I & D with bone resection form Lt 4th metatarsal on 07/14
-Intraoperative culture growing MRSA
-Antibiotics adjusted to vancomycin and Unasyn, ID managing
-ID discussed with Pods and planned to have 4th digit removed today
2. IVY On CKD IIIB
Nephrotic range proteinuria
-Baseline cr 1.5-1.7, currently elevated to 2.6
-Spot check showing nephrotic range proteinuria 4.3g/24hr. for 24-hour urine collection has been ordered
-Normal C3/C4 level. BRANDON/MPO negative. PR3 Ab marginally positive 35 (normal 0-19)
-Nephrology considering renal biopsy based on clinical course
-Discussed with ID antibiotics adjusted to help with nephrotoxicity
3. Metabolic acidosis
-resolved
4. Acute on chronic HFpEF, EF 60-65%
-CXR and exam not consisted with HF
-Monitor volume status
-Cardiology help appreciated, lasix on hold with renal dysfunction
5. Type II DM
-Maintain on insulin sliding scale/Accu-Cheks
6. Presumed Chronic urinary repletion
-PVR in 200-300 range in general with some time retaining more
-Patient able to void
-Discussed possible need of manzanares cath if any further decline in renal function
7. Essential HTN - uncontrolled
-Dose of norvasc increased to 5mg/d by nephro
-on coreg 12.5 mg/bid
Full code
Heparin subq
Case discussed with nephrology
Anticipated Discharge: > 48 hours
Subjective/Interval History
-
Date of Service: July 17, 2024
no significant left leg pain
afebrile overnight
have still PVR in range 200-300 ml
Objective Data
-
Labs:
Laboratory Results
07/17/24
05:22
Sodium 143
Potassium 4.1
Chloride 106
Carbon Dioxide 24
BUN 31 H
Creatinine 2.6 H
Glucose 115 H
Calcium 8.5
Vital Signs:
Vital Signs
Temp Pulse Resp BP Pulse Ox
98.2 F 77 16 158/78 95
07/17/24 07:15 07/17/24 07:53 07/17/24 07:15 07/17/24 07:53 07/17/24 09:59
I&O
07/16/24 07/17/24 07/18/24
06:59 06:59 06:59
Intake Total 1979 1220 / 1220
Output Total 555 / 555
Balance 1425 / 1425 1220 / 1220
Review of Systems
-
Respiratory: Reports No Symptoms
Cardiac: Reports No Symptoms
Abdomen/GI: Reports No Symptoms
Physical Exam
-
General: No Apparent Distress and Comfortable
HEENT: Negative Oxygen
Respiratory: Clear to Auscultation
Cardiac: Regular Rhythm and S1/S2; Negative Murmur or Rub
GI: Soft, Nontender and Nondistended
Musculoskeletal: No Edema and Other (Left leg dressing )
Neuro: Awake, Alert, Oriented, No Motor Deficits and Nonfocal/Grossly Intact
Psych: Calm
--- NOTE | 2024-07-17 14:40 | W.SUR.POST ---
Surgical Immediate Post Op
Note
Pre Op Diagnosis: left 4th toe osteomyelitis
Post Op Diagnosis: Same as above
Procedure Performed: Left 4th toe amputation
Primary Surgeon: Dr. Corrine Valenzuela
Secondary Surgeons: None
Anesthesia: Mac with local block
Estimated Blood Loss: 3 cc's
Fluids: none
Drains/Shunts: None
Specimens/Cultures: LEft 4th toe for pathology and culture
Doppler/Duplex/Angio (Y/N): No
Complications: None
Operative Findings: No deep tissue purulence or any necrosis noted
Patient stable in PACU with intact vascular status and stable vital signs
[2024-07-17 15:17] LABS: Glucose - Point of Care 117 mg/dl (70-99)
[2024-07-17] MEDS: APRESOLINE 10 MG IV (15:38)
[2024-07-17] MEDS: FERRLECIT 110 MG IV (15:40)
--- NOTE | 2024-07-17 15:57 | PTCARENOTE ---
Received patient from PACU s/p L 4th toe amputation. L foot dressing clean dry and intact. BP 166/87 taken by tech, PRN hydralazine administered by this RN per parameters. Diet order re-entered for patient. Patient NWB to L foot today and tomorrow,
patient verbalizes understanding. Call peters, urinal, and commode within patient's reach, patient denies any pain at this time.
--- NOTE | 2024-07-17 17:12 | W.PN.ID1 ---
Date of Service
Date of Service: July 17, 2024
Today's Communication
Continue vancomycin - plan 6 week course given residual osteo of the metatarsal -
switch to augmentin to finish 10 days - through tomorrow
Assessment / Plan
Severe left foot SSTI with abscess
Left fourth metatarsal osteomyelitis.
DM2
Peripheral Neuropathy
Hypertension
CKD III
Anxiety / Depression
Lumbar DDD
Recommendations:
Continue vancomycin - plan 6 week course given residual osteo of the metatarsal -
switch to augmentin to finish 10 days - through tomorrow
picc line
script to pillowcase cutter tomorrow
����������������������������������������������������������
Chief Complaint
-: Other (Left foot infection / osteomyelitis)
Subjective / Review of Systems
afebrile
bp stable
s/p amputation of the 4th digit
no complaints
Vital Signs / Physical Exam
Vital Signs
Vital Signs
Temp Pulse Resp BP Pulse Ox
97.6 F 75 16 148/74 93
07/17/24 16:30 07/17/24 16:30 07/17/24 16:30 07/17/24 16:30 07/17/24 16:30
Physical Exam
Constitutional: No Acute Distress
Cardiovascular: Regular Rate and S1/S2; Negative Murmur or Rub
Pulmonary: Clear and Symmetric; Negative Wheezes or Rales
Gastrointestinal: Soft, Non Tender, Non Distended and Normal Bowel Sounds
Skin: Warm and Dry; Negative Rash or Jaundice
Wound: Other (deferred take down of post operative dressing)
Objective Data
Lab Data
Lab Results
07/16/24 05:31
07/17/24 05:22
ESR 93 mm/hour (0-20) H 07/09/24 18:23
Estimated Creat Clear 34 ml/min 07/17/24 05:22
Lactic Acid 0.5 mmol/L (0.7-2.0) L 07/09/24 19:38
Total Bilirubin 0.3 mg/dl (0.2-1.3) 07/15/24 05:31
AST 15 U/L (17-59) L 07/15/24 05:31
ALT 18 U/L (0-50) 07/15/24 05:31
Alkaline Phosphatase 186 U/L (38-126) H 07/15/24 05:31
C-Reactive Protein 63.10 mg/L (0.0-10.00) H 07/09/24 18:23
Most recent labs reviewed.
Organism 1 Staph aureus MRSA
1. Staph aureus MRSA
M.I.C. RX
--------- ---
Amoxicillin/Potas. Clavulanate >4/2 R
Ampicillin 8 R
Clindamycin <=0.5 S
Gentamicin <=4 S
Erythromycin >4 R
Levofloxacin >4 R
Oxacillin 2 R
Tetracycline <=4 S
Trimethoprim/Sulfamethoxazole >2/38 R
Vancomycin 1 S
Micro Results:
07/17/24 14:30 Wound Culture - Pending
Foot - Left Gram Stain - Preliminary
07/17/24 14:30 Anaerobic Culture - Pending
Foot - Left
07/14/24 11:53 Anaerobic Culture - Preliminary
Foot - Left Culture pending. Anaerobic cultures are examined after 3
days incubation. Additional information to follow.
07/14/24 11:53 Wound Culture - Preliminary
Foot - Left Staph aureus MRSA
Gram Stain - Preliminary
07/14/24 11:53 Tissue Culture - Final
Foot - Left Staph aureus MRSA
Gram Stain - Final
07/09/24 19:38 Blood Culture - Final
Blood/Venous No Growth - Final Report
07/09/24 19:38 Blood Culture - Final
Blood/Venous No Growth - Final Report
07/09/24 18:23 Wound Culture - Final
Foot - Left Staph aureus MRSA
Gram Stain - Final
07/10/24 00:02 MRSA Screen - Final
Nose No Methicillin Resistant Staphylococcus aureus isolated.
07/09/24 18:23 Influenza Types A & B (LAURA) - Final
Nasal Swab Negative for Influenza A & B, NAAT
Negative results must be combined with clinical observations
and patient history.
Nucleic Acid Amplification test (NAAT)performed on the
[employer] platform.
Imaging:
07/10/2024 MRI left lower extremity: Rodney confluent osteomyelitis throughout the entire fourth metatarsal and majority of the fourth digit proximal phalanx. The fourth digit middle and distal phalanges demonstrate osteitis without rodney
osteomyelitis. There is a prominent ulceration along the lateral forefoot with underlying fluid tract and phlegmon/soft tissue abscess measuring up to 2.1 x 2.6 x 2.9 cm.
07/09/2024 X-ray left foot: There are postoperative changes of the distal fifth metatarsal and fifth toe amputation. A small soft tissue defect along the lateral aspect of the forefoot is noted. There is erosion of the fourth metatarsal head.
Mild degenerative changes of the first metatarsal phalangeal joint noted. There are likely hammertoe deformities. Erosions along the lateral aspect of the fourth metatarsal head are new from prior radiographs from 2021 and may represent
osteomyelitis. Please see full dictation for additional detail.
Care Review
Plan reviewed with: Physician (Dr damon - amputation)
[2024-07-17 17:40] LABS: Glucose - Point of Care 171 mg/dl (70-99)
[2024-07-17] MEDS: NOVOLOG FLEXPEN-LOW RESISTANCE 1 UNITS SC (17:41)
--- NOTE | 2024-07-17 17:50 | PTCARENOTE ---
IV team made aware by this RN of order for PICC line per ID.
[2024-07-17] MEDS: HEPARIN 5000 UNITS SC (19:57)
[2024-07-17 22:11] LABS: Glucose - Point of Care 272 mg/dl (70-99)
[2024-07-18 03:16] VITALS: BP 157/83
[2024-07-18 06:00] VITALS: BMI 22.4
[2024-07-18] MEDS: AUGMENTIN 500 MG/125 MG 1 TABLET PO ×3 (06:14→20:56)
[2024-07-18 06:52] LABS: Hematocrit 27.1 % (39.0-52.0); Hemoglobin 8.8 g/dL (13.0-18.0); Mean Corp Hgb Conc. 32.5 g/dL (33.0-37.0); Mean Corpuscular Hgb 27.1 pg (27.0-31.0); Mean Corpuscular Volume 83.4 fL (80.0-94.0); Mean Platelet Volume 8.7 fL (7.4-10.4); Platelet Count 309 10^3/uL (130-400); Red Blood Cell Count 3.25 10^6/uL (4.70-6.10); Red Cell Dist. Width 14.3 % (11.5-14.5); White Blood Cell Count 7.2 10^3/uL (4.8-10.8)
[2024-07-18 07:09] LABS: ALT (SGPT) 20 U/L (0-50); AST (SGOT) 18 U/L (17-59); Albumin 3.1 g/dl (3.5-5.0); Alkaline Phosphatase 143 U/L (38-126); Blood Urea Nitrogen 43 mg/dl (9-20); Calcium 8.3 mg/dl (8.4-10.2); Carbon Dioxide 23 mmol/L (22-30); Chloride 105 mmol/L (98-107); Estimated Creatinine Clearance 28 ml/min; Glucose 157 mg/dl (70-99); Potassium 4.3 mmol/L (3.5-5.1); Sodium 142 mmol/L (135-145); Total Bilirubin 0.4 mg/dl (0.2-1.3); Total Protein 6.4 g/dl (6.3-8.2); eGFR 21.89
[2024-07-18 07:12] LABS: Vancomycin Random 12.1 ug/ml
[2024-07-18 07:15] VITALS: BP 150/80
[2024-07-18 08:13] LABS: Glucose - Point of Care 151 mg/dl (70-99)
--- NOTE | 2024-07-18 08:31 | PHA.VAN.FU ---
Addendum entered and electronically signed by Ania Washington [facility] 07/18/24 08:54:
Currently anticipate re-dosing interval is Q48 to 72H
Original Note:
Vancomycin Assessment / Plan
- Assessment
Renal Function: SCR Increasing
WBC's are: WNL
In the past 24 hrs, patient has been: Afebrile
Concomitant Antimicrobials: Amoxicillin 500mg/Clav 125mg
- Dosing Plan
Dosing by Level: Hold off on dosing today (SCr increased from 2.6mg/dL to 3.1 mg/dL)
- Monitoring Plan
Trough Level: With routine morning labs
- Follow Up
Pharmacy will continue to follow.
Vancomycin Follow UP
- -
Patient Age: 63
Patient Sex: Male
Vancomycin Day #: 9
Indication: [facility]
Requesting Provider: Marely Benítez / Marquise
Pertinent Antimicrobial Allergies:
NKDA
Height / Weight:
Height 6 ft 3 in
Actual Weight 81.374 kg
Pertinent Past Medical History: DM II, CKD
- Vital Signs / Lab Results
Temp Pulse Resp BP Pulse Ox
97.9 F 80 18 150/80 98
07/18/24 07:15 07/18/24 07:15 07/18/24 07:15 07/18/24 07:15 07/18/24 07:15
Lab Results - Hematology
07/16/24 07/18/24
05:31 06:41
WBC 6.7 7.2
Lab Results - Chemistry
07/16/24 07/17/24 07/18/24
05:31 05:22 06:41
BUN 28 H 31 H 43 H
Creatinine 2.5 H 2.6 H 3.1 H
Estimated Creat Clear 35 34 28
Albumin 3.1 L
Microbiology Results
07/17/24 14:30 Gram Stain - Preliminary
Foot - Left
07/14/24 11:53 Anaerobic Culture - Preliminary
Foot - Left Culture pending. Anaerobic cultures are examined after 3
days incubation. Additional information to follow.
07/14/24 11:53 Wound Culture - Preliminary
Foot - Left Staph aureus MRSA
Gram Stain - Preliminary
07/14/24 11:53 Tissue Culture - Final
Foot - Left Staph aureus MRSA
Gram Stain - Final
Therapeutic Drug Monitoring
Random Vancomycin 12.1 ug/ml 07/18/24 06:41
[2024-07-18] MEDS: NOVOLOG FLEXPEN-LOW RESISTANCE 1 UNITS SC ×3 (08:49→16:10)
[2024-07-18] MEDS: COREG 12.5 MG PO (08:50)
[2024-07-18] MEDS: NORVASC 5 MG PO (08:51)
[2024-07-18] MEDS: WELLBUTRIN SR (12 hour sustained release) 150 MG PO ×2 (08:55→20:56)
[2024-07-18] MEDS: NEURONTIN 300 MG PO ×2 (08:55→20:56)
[2024-07-18] MEDS: VISBIOME 1 CAP PO (08:56)
[2024-07-18] MEDS: HEPARIN 5000 UNITS SC ×2 (08:56→20:56)
[2024-07-18] MEDS: FLOMAX 0.4 MG PO (08:56)
[2024-07-18] MEDS: ATIVAN 1 MG PO ×3 (08:56→22:41)
--- NOTE | 2024-07-18 10:29 | W.PN.NEPH.PH ---
Today's Communication / Plan
-
biopsy
Assessment/Plan
-
Impression:
Acute kidney injury
CKD stage IIIb baseline creatinine 1.6
Metabolic acidosis
Edema
Shortness of breath
Left Foot osteomyelitis
HTN
+PR3 Ab
Plan:
follow BMP
plan for renal biopsy sunday
off RASi, Lasix
vanco levels acceptable
-
-
Date of Service: July 18, 2024
CC / HPI / ROS
-
Chief Complaint:
IVY, ckd
History of Present Illness:
IVY/Cr worse to 3.1
s/p I/D left foot 07/15
BP high stable
no fever
on abx for LLE osteo
Review of Systems:
no cp or sob
no n/v
PVR acceptable
Labs
-
Labs:
WBC 7.2 10^3/uL (4.8-10.8) 07/18/24 06:41
RBC 3.25 10^6/uL (4.70-6.10) L 07/18/24 06:41
Hgb 8.8 g/dL (13.0-18.0) L 07/18/24 06:41
Hct 27.1 % (39.0-52.0) L 07/18/24 06:41
Plt Count 309 10^3/uL (130-400) 07/18/24 06:41
Sodium 142 mmol/L (135-145) 07/18/24 06:41
Potassium 4.3 mmol/L (3.5-5.1) 07/18/24 06:41
Chloride 105 mmol/L (98-107) 07/18/24 06:41
Carbon Dioxide 23 mmol/L (22-30) 07/18/24 06:41
BUN 43 mg/dl (9-20) H 07/18/24 06:41
Creatinine 3.1 mg/dL (0.7-1.3) H 07/18/24 06:41
eGFR 21.89 07/18/24 06:41
Glucose 157 mg/dl (70-99) H 07/18/24 06:41
Calcium 8.3 mg/dl (8.4-10.2) L 07/18/24 06:41
Ojh-R-Oshazebmcru Pept 04793 pg/ml 07/09/24 18:23
Albumin 3.1 g/dl (3.5-5.0) L 07/18/24 06:41
Physical Exam
-
Vital Signs:
Vital Signs
Temp Pulse Resp BP Pulse Ox
97.9 F 80 18 150/80 98
07/18/24 07:15 07/18/24 07:15 07/18/24 07:15 07/18/24 07:15 07/18/24 07:15
Cardiovascular:: Regular rate and rhythm
Respiratory:: Bilateral: CTA
Lung Excursion:: Normal
Abdomen:: Nontender and Soft
Bowel Sounds:: Normal
Extremity Edema:: None: Bilateral:
[2024-07-18 11:50] LABS: Glucose - Point of Care 179 mg/dl (70-99)
--- NOTE | 2024-07-18 12:07 | W.PN.POD ---
Today's Communication
Today's Communication
patient stable per podiatry
Assessment / Plan
-
A/P : S/P LT foot I & D with 4th metatarsal debridement 07/14 POD # 4
LT 4th toe amputation with primary closure 07/17. POD #1
Left foot cellulitis with abscess - resolved
Left fourth metatarsal osteomyelitis - abx per ID
Diabetic neuropathy.
H/o of left foot 5th toe and distal metatarsal bone resection with multiple d�bridements
Poorly controlled diabetic.
Non compliance with using off loading shoes
Plan : Changed surgical dressings, applied compressive dressings
Abx per ID
Patient can ambulate with wedge shoe and walker to bed and bathroom
Subjective
Chief Complaint
left foot infected diabetic ulcer and osteomyelitis of the Left 4th toe and metatarsal
Subjective
Patient seen at bedside, doing fine, denies any LT foot or calf pain, no fever, chills, Minimal strike through bleeding in surgical dressings noted
Objective
Temp Pulse Resp BP Pulse Ox
97.9 F 80 18 150/80 98
07/18/24 07:15 07/18/24 07:15 07/18/24 07:15 07/18/24 07:15 07/18/24 07:15
07/18/24 06:41
07/18/24 06:41
Vital Signs and Lab results were reviewed.
LT foot intact pedal pulses .
Resolved erythema and resolved edema to LT foot
LT foot surgical sites is clean, dry, no active bleeding, plantar ulcer site clean, dry, minimal serous drainage, no active bleeding , no palpable bone noted.
Lt dorsal foot incision is clean, dry, intact sutures, no drainage, no SOI, no new discoloration or any necrosis noted.
Left 4th toe amputation site is clean, dry, intact sutures, no bleeding.
--- NOTE | 2024-07-18 12:39 | W.PN.HOSP.TC ---
Today's Communication/Plan
-
f/u cr
abx per ID
renal biopsy on Sun
f/u PVR
Assessment / Plan
Assessment / Plan
Toe Xray
IMPRESSION:
Postoperative changes of distal fifth metatarsal and phalanx amputation. There is a soft tissue defect along the lateral aspect of the forefoot. There is an erosion along the lateral aspect of the fourth metatarsal head which is new from prior
radiograph in 2021 and may represent osteomyelitis.
Mild degenerative changes of the first MTP.
MRI
IMPRESSION:
Rodney confluent osteomyelitis throughout the entire fourth metatarsal and majority of the fourth digit proximal phalanx. The fourth digit middle and distal phalanges demonstrate osteitis without rodney osteomyelitis.
Osteitis throughout the third digit without rodney osteomyelitis.
Prominent ulceration along the lateral forefoot with underlying fluid tract and phlegmon/soft tissue abscess measuring up to 2.1 x 2.6 x 2.9 cm.

1. Diabetic foot infection from MRSA- Left foot
-Given for spontaneously opening and draining left foot wound
-X-ray and MRI foot report as above
-Lower extremity arterial Doppler normal
-s/p LT foot I & D with bone resection form Lt 4th metatarsal on 07/14
-S/p Left 4th toe amputation on 07/17
-Intraoperative culture growing MRSA
-Antibiotics adjusted to vancomycin and Augmentin. ID help appreciated.
2. IVY On CKD IIIB
Nephrotic range proteinuria
-Baseline cr 1.5-1.7, currently elevated to 3.1
-Spot check showing nephrotic range proteinuria 4.3g/24hr. for 24-hour urine collection has been ordered
-Normal C3/C4 level. BRANDON/MPO negative. PR3 Ab marginally positive 35 (normal 0-19)
-Renal biopsy on Sunday.
3. Metabolic acidosis
-resolved
4. Acute on chronic HFpEF, EF 60-65%
-CXR and exam not consisted with HF
-Monitor volume status
-Cardiology help appreciated, lasix on hold with renal dysfunction
5. Type II DM
-Maintain on insulin sliding scale/Accu-Cheks
6. Presumed Chronic urinary repletion
-PVR in 200-300 range in general with some time retaining more
-Patient able to void
-Discussed possible need of manzanares cath if any further decline in renal function
7. Essential HTN - uncontrolled
-Dose of norvasc increased to 5mg/d by nephro
-Increase to coreg 25mg/bid
Full code
Heparin subq
Anticipated Discharge: > 48 hours
Subjective/Interval History
-
Date of Service: July 18, 2024
denies of having significant pain in left foot
afebrile overnight
no significant urinary retention issue
Objective Data
-
Labs:
Laboratory Results
07/18/24
06:41
WBC 7.2
Hgb 8.8 L
Hct 27.1 L
Plt Count 309
Sodium 142
Potassium 4.3
Chloride 105
Carbon Dioxide 23
BUN 43 H
Creatinine 3.1 H
Glucose 157 H
Calcium 8.3 L
Total Bilirubin 0.4
AST 18
ALT 20
Alkaline Phosphatase 143 H
Vital Signs:
Vital Signs
Temp Pulse Resp BP Pulse Ox
97.9 F 80 18 150/80 98
07/18/24 07:15 07/18/24 07:15 07/18/24 07:15 07/18/24 07:15 07/18/24 07:15
I&O
10/31/24 11/01/24 11/02/24
06:59 06:59 06:59
Intake Total 1220 / 1220 1080 / 1080
Output Total 600 / 600
Balance 1220 / 1220 480 / 480
Review of Systems
-
Respiratory: Reports No Symptoms
Cardiac: Reports No Symptoms
Abdomen/GI: Reports No Symptoms
Physical Exam
-
General: No Apparent Distress and Comfortable
HEENT: Negative Oxygen
Respiratory: Clear to Auscultation
Cardiac: Regular Rhythm and S1/S2; Negative Murmur or Rub
GI: Soft, Nontender and Nondistended
Musculoskeletal: No Edema and Other (Left leg dressing )
Neuro: Awake, Alert, Oriented, No Motor Deficits and Nonfocal/Grossly Intact
Psych: Calm
[2024-07-18] MEDS: FERRLECIT 110 MG IV (13:07)
--- NOTE | 2024-07-18 15:13 | CM ---
Patient seen at bedside. Per physicians patient pending further testing and will need IV antibiotics. Patient not medically appropriate to leave at this time. CM will continue to follow for discharge planning needs.
Plan; home with VN vs IV antibiotics watch for need
--- NOTE | 2024-07-18 15:38 | W.PN.ID1 ---
Date of Service
Date of Service: July 18, 2024
Today's Communication
Continue vancomycin - plan 6 week course given residual osteo of the metatarsal -
augmentin to finish 10 days - today is the final day
pending renal biopsy sunday
Assessment / Plan
Severe left foot SSTI with abscess
Left fourth metatarsal osteomyelitis.
DM2
Peripheral Neuropathy
Hypertension
CKD III
Anxiety / Depression
Lumbar DDD
Recommendations:
Continue vancomycin - plan 6 week course given residual osteo of the metatarsal -
augmentin to finish 10 days - today is the final day
picc line in place
script to returned case inspector sunday
pending renal biopsy sunday
����������������������������������������������������������
Chief Complaint
-: Other (Left foot infection / osteomyelitis)
Subjective / Review of Systems
afebrile
bp stable
no complaints
Vital Signs / Physical Exam
Vital Signs
Vital Signs
Temp Pulse Resp BP Pulse Ox
97.9 F 80 18 150/80 98
07/18/24 07:15 07/18/24 07:15 07/18/24 07:15 07/18/24 07:15 07/18/24 07:15
Physical Exam
Constitutional: No Acute Distress
Cardiovascular: Regular Rate and S1/S2; Negative Murmur or Rub
Pulmonary: Clear and Symmetric; Negative Wheezes or Rales
Gastrointestinal: Soft, Non Tender, Non Distended and Normal Bowel Sounds
Skin: Warm and Dry; Negative Rash or Jaundice
Wound: Other (dressing clean, dry, intact)
Objective Data
Lab Data
Lab Results
07/18/24 06:41
07/18/24 06:41
ESR 93 mm/hour (0-20) H 07/09/24 18:23
Estimated Creat Clear 28 ml/min 07/18/24 06:41
Lactic Acid 0.5 mmol/L (0.7-2.0) L 07/09/24 19:38
Total Bilirubin 0.4 mg/dl (0.2-1.3) 07/18/24 06:41
AST 18 U/L (17-59) 07/18/24 06:41
ALT 20 U/L (0-50) 07/18/24 06:41
Alkaline Phosphatase 143 U/L (38-126) H 07/18/24 06:41
C-Reactive Protein 63.10 mg/L (0.0-10.00) H 07/09/24 18:23
Most recent labs reviewed.
Micro Results:
07/17/24 14:30 Anaerobic Culture - Preliminary
Foot - Left Culture pending. Anaerobic cultures are examined after 3
days incubation. Additional information to follow.
07/17/24 14:30 Wound Culture - Preliminary
Foot - Left Staph aureus MRSA
Gram Stain - Preliminary
07/14/24 11:53 Anaerobic Culture - Preliminary
Foot - Left Culture pending. Anaerobic cultures are examined after 3
days incubation. Additional information to follow.
07/14/24 11:53 Wound Culture - Preliminary
Foot - Left Staph aureus MRSA
Gram Stain - Preliminary
07/14/24 11:53 Tissue Culture - Final
Foot - Left Staph aureus MRSA
Gram Stain - Final
07/09/24 19:38 Blood Culture - Final
Blood/Venous No Growth - Final Report
07/09/24 19:38 Blood Culture - Final
Blood/Venous No Growth - Final Report
07/09/24 18:23 Wound Culture - Final
Foot - Left Staph aureus MRSA
Gram Stain - Final
07/10/24 00:02 MRSA Screen - Final
Nose No Methicillin Resistant Staphylococcus aureus isolated.
07/09/24 18:23 Influenza Types A & B ([facility]) - Final
Nasal Swab Negative for Influenza A & B, NAAT
Negative results must be combined with clinical observations
and patient history.
Nucleic Acid Amplification test (NAAT)performed on the
[employer] platform.
Imaging:
07/10/2024 MRI left lower extremity: Rodney confluent osteomyelitis throughout the entire fourth metatarsal and majority of the fourth digit proximal phalanx. The fourth digit middle and distal phalanges demonstrate osteitis without rodney
osteomyelitis. There is a prominent ulceration along the lateral forefoot with underlying fluid tract and phlegmon/soft tissue abscess measuring up to 2.1 x 2.6 x 2.9 cm.
07/09/2024 X-ray left foot: There are postoperative changes of the distal fifth metatarsal and fifth toe amputation. A small soft tissue defect along the lateral aspect of the forefoot is noted. There is erosion of the fourth metatarsal head.
Mild degenerative changes of the first metatarsal phalangeal joint noted. There are likely hammertoe deformities. Erosions along the lateral aspect of the fourth metatarsal head are new from prior radiographs from 2021 and may represent
osteomyelitis. Please see full dictation for additional detail.
[2024-07-18 15:56] VITALS: BP 188/86
[2024-07-18] MEDS: APRESOLINE 10 MG IV (16:07)
[2024-07-18 16:08] LABS: Glucose - Point of Care 161 mg/dl (70-99)
[2024-07-18] MEDS: COREG 25 MG PO (20:56)
[2024-07-18 21:28] LABS: Glucose - Point of Care 176 mg/dl (70-99)
[2024-07-18 23:15] VITALS: BP 161/72
[2024-07-19 03:05] VITALS: BP 202/95
[2024-07-19] MEDS: APRESOLINE 10 MG IV (03:07)
[2024-07-19 05:56] LABS: Blood Urea Nitrogen 48 mg/dl (9-20); Calcium 8.2 mg/dl (8.4-10.2); Carbon Dioxide 26 mmol/L (22-30); Chloride 105 mmol/L (98-107); Estimated Creatinine Clearance 27 ml/min; Glucose 117 mg/dl (70-99); Potassium 4.2 mmol/L (3.5-5.1); Sodium 142 mmol/L (135-145); eGFR 20.31
[2024-07-19 05:57] LABS: Vancomycin Random 9.7 ug/ml
[2024-07-19 05:59] LABS: Hematocrit 24.6 % (39.0-52.0); Mean Corp Hgb Conc. 32.5 g/dL (33.0-37.0); Mean Corpuscular Hgb 28.2 pg (27.0-31.0); Mean Corpuscular Volume 86.6 fL (80.0-94.0); Mean Platelet Volume 9.6 fL (7.4-10.4); Platelet Count 282 10^3/uL (130-400); Red Blood Cell Count 2.84 10^6/uL (4.70-6.10); Red Cell Dist. Width 14.6 % (11.5-14.5); White Blood Cell Count 6.5 10^3/uL (4.8-10.8)
[2024-07-19 06:00] VITALS: BMI 22.9
[2024-07-19 07:00] VITALS: BP 171/83
[2024-07-19 07:27] LABS: Glucose - Point of Care 117 mg/dl (70-99)
--- NOTE | 2024-07-19 08:42 | PHA.VAN.FU ---
Vancomycin Assessment / Plan
- Assessment
Renal Function: SCR Increasing (3.1-->3.3)
WBC's are: WNL
In the past 24 hrs, patient has been: Afebrile
- Assessment - Therapeutic Drug Monitoring
Random Level: 9.7
- Dosing Plan
Dosing by Level: Re-dose today (1000MG)
- Monitoring Plan
Random Level: 11/3 IN AM
- Follow Up
Pharmacy will continue to follow.
Vancomycin Follow UP
- -
Patient Age: 63
Patient Sex: Male
Vancomycin Day #: 10
Indication: Bone And Joint
Requesting Provider: Marely Benítez / Marquise
Pertinent Antimicrobial Allergies:
NKDA
Height / Weight:
Height 6 ft 3 in
Actual Weight 83.092 kg
Pertinent Past Medical History: DM II, CKD
- Vital Signs / Lab Results
Temp Pulse Resp BP Pulse Ox
98.0 F 77 20 202/95 95
07/18/24 23:15 07/19/24 03:05 07/18/24 23:15 07/19/24 03:07 07/19/24 01:20
Lab Results - Hematology
07/18/24 07/19/24
06:41 05:22
WBC 7.2 6.5
Lab Results - Chemistry
07/17/24 07/18/24 07/19/24
05:22 06:41 05:22
BUN 31 H 43 H 48 H
Creatinine 2.6 H 3.1 H 3.3 H
Estimated Creat Clear 34 28 27
Albumin 3.1 L
Microbiology Results
07/14/24 11:53 Wound Culture - Final
Foot - Left Staph aureus MRSA
Gram Stain - Final
07/14/24 11:53 Anaerobic Culture - Final
Foot - Left NO ANAEROBES ISOLATED
07/17/24 14:30 Anaerobic Culture - Preliminary
Foot - Left Culture pending. Anaerobic cultures are examined after 3
days incubation. Additional information to follow.
07/17/24 14:30 Wound Culture - Preliminary
Foot - Left Staph aureus MRSA
Gram Stain - Preliminary
Therapeutic Drug Monitoring
Random Vancomycin 9.7 ug/ml 07/19/24 05:22
[2024-07-19] MEDS: NOVOLOG FLEXPEN-LOW RESISTANCE SC (09:09)
[2024-07-19] MEDS: ATIVAN 1 MG PO ×3 (09:10→23:06)
[2024-07-19] MEDS: COREG 25 MG PO ×2 (09:10→20:06)
[2024-07-19] MEDS: FLOMAX 0.4 MG PO (09:10)
[2024-07-19] MEDS: NEURONTIN 300 MG PO ×2 (09:10→20:06)
[2024-07-19] MEDS: VISBIOME 1 CAP PO (09:10)
[2024-07-19] MEDS: WELLBUTRIN SR (12 hour sustained release) 150 MG PO ×2 (09:10→20:06)
[2024-07-19] MEDS: NORVASC 5 MG PO (09:10)
[2024-07-19] MEDS: HEPARIN 5000 UNITS SC ×2 (09:11→20:06)
[2024-07-19] MEDS: FLUSH (NSS) 2 FLUSH IV ×2 (10:13→14:16)
[2024-07-19] MEDS: VANCOCIN 200 IV (10:17)
--- NOTE | 2024-07-19 10:23 | W.PN.NEPH.PH ---
Today's Communication / Plan
-
follow BMP
Assessment/Plan
-
Impression:
Acute kidney injury
CKD stage IIIb baseline creatinine 1.6
Metabolic acidosis
Edema
Shortness of breath
Left Foot osteomyelitis
HTN
+PR3 Ab
Plan:
follow BMP
plan for renal biopsy sunday,hold heparin sunday
off RASi, Lasix
vanco levels acceptable
If cr continues to rise, may need to consider pulse steroids.
d/w pt possibility of HD as well
-
-
Date of Service: July 19, 2024
CC / HPI / ROS
-
Chief Complaint:
IVY, ckd
History of Present Illness:
IVY/Cr worse to 3.3
s/p I&D left foot 07/15
BP high stable
no fever
on abx for LLE osteo
Review of Systems:
no cp or sob
no n/v
PVR acceptable
Labs
-
Labs:
WBC 6.5 10^3/uL (4.8-10.8) 07/19/24 05:22
RBC 2.84 10^6/uL (4.70-6.10) L 07/19/24 05:22
Hgb 8.0 g/dL (13.0-18.0) L 07/19/24 05:22
Hct 24.6 % (39.0-52.0) L 07/19/24 05:22
Plt Count 282 10^3/uL (130-400) 07/19/24 05:22
Sodium 142 mmol/L (135-145) 07/19/24 05:22
Potassium 4.2 mmol/L (3.5-5.1) 07/19/24 05:22
Chloride 105 mmol/L (98-107) 07/19/24 05:22
Carbon Dioxide 26 mmol/L (22-30) 07/19/24 05:22
BUN 48 mg/dl (9-20) H 07/19/24 05:22
Creatinine 3.3 mg/dL (0.7-1.3) H 07/19/24 05:22
eGFR 20.31 07/19/24 05:22
Glucose 117 mg/dl (70-99) H 07/19/24 05:22
Calcium 8.2 mg/dl (8.4-10.2) L 07/19/24 05:22
Qjp-X-Dfzcbkpeidu Pept 25736 pg/ml 07/09/24 18:23
Albumin 3.1 g/dl (3.5-5.0) L 07/18/24 06:41
Physical Exam
-
Vital Signs:
Vital Signs
Temp Pulse Resp BP Pulse Ox
98.5 F 80 16 171/83 95
07/19/24 07:00 07/19/24 07:00 07/19/24 07:00 07/19/24 07:00 07/19/24 07:00
Cardiovascular:: Regular rate and rhythm
Respiratory:: Bilateral: CTA
Lung Excursion:: Normal
Abdomen:: Nontender and Soft
Bowel Sounds:: Normal
Extremity Edema:: None: Bilateral:
--- NOTE | 2024-07-19 12:24 | W.PN.HOSP.TC ---
Today's Communication/Plan
-
add procardia to regimen
continue abx
manzanares catheter ordered
Assessment / Plan
Assessment / Plan
Toe Xray
IMPRESSION:
Postoperative changes of distal fifth metatarsal and phalanx amputation. There is a soft tissue defect along the lateral aspect of the forefoot. There is an erosion along the lateral aspect of the fourth metatarsal head which is new from prior
radiograph in 2021 and may represent osteomyelitis.
Mild degenerative changes of the first MTP.
MRI
IMPRESSION:
Rodney confluent osteomyelitis throughout the entire fourth metatarsal and majority of the fourth digit proximal phalanx. The fourth digit middle and distal phalanges demonstrate osteitis without rodney osteomyelitis.
Osteitis throughout the third digit without rodney osteomyelitis.
Prominent ulceration along the lateral forefoot with underlying fluid tract and phlegmon/soft tissue abscess measuring up to 2.1 x 2.6 x 2.9 cm.

1. Diabetic foot infection from MRSA- Left foot
-Given for spontaneously opening and draining left foot wound
-X-ray and MRI foot report as above
-Lower extremity arterial Doppler normal
-s/p LT foot I & D with bone resection form Lt 4th metatarsal on 07/14
-S/p Left 4th toe amputation on 07/17
-Intraoperative culture growing MRSA
-Antibiotics adjusted to vancomycin and Augmentin. ID recommended 6 wks of IV vanc and 10 days of augmentin.
2. IVY On CKD IIIB
Nephrotic range proteinuria
-Baseline cr 1.5-1.7, currently elevated to 3.3
-Spot check showing nephrotic range proteinuria 4.3g/24hr. for 24-hour urine collection has been ordered
-Normal C3/C4 level. BRANDON/MPO negative. PR3 Ab marginally positive 35 (normal 0-19)
-Renal biopsy on Sunday.
-manzanares catheter ordered as patient was having on/off retention issues pre-op, will like to address if contributing at this point.
3. Metabolic acidosis
-resolved
4. Chronic Diastolic HF
-no signs of exacerbation,.
-CXR and exam not consisted with HF
-Monitor volume status
-Cardiology help appreciated, lasix on hold with renal dysfunction
5. Type II DM
-Maintain on insulin sliding scale/Accu-Cheks
6. Presumed Chronic urinary repletion
-PVR in 200-300 range in general with some time retaining more
-Patient able to void
-manzanares catheter ordered with ongoing renal failure.
7. Essential HTN - uncontrolled
-Increase to coreg 25mg/bid
-added procradia 30mg bid
Full code
Heparin subq
Anticipated Discharge: > 48 hours
Subjective/Interval History
-
Date of Service: July 19, 2024
no complains overnight
denies any nausea/vomiting
Objective Data
-
Labs:
Laboratory Results
07/19/24
05:22
WBC 6.5
Hgb 8.0 L
Hct 24.6 L
Plt Count 282
Sodium 142
Potassium 4.2
Chloride 105
Carbon Dioxide 26
BUN 48 H
Creatinine 3.3 H
Glucose 117 H
Calcium 8.2 L
Vital Signs:
Vital Signs
Temp Pulse Resp BP Pulse Ox
98.5 F 80 16 171/83 95
07/19/24 07:00 07/19/24 07:00 07/19/24 07:00 07/19/24 07:00 07/19/24 08:00
I&O
07/18/24 07/19/24 07/20/24
06:59 06:59 05:59
Intake Total 1080 / 1080 660 / 660
Output Total 600 / 600
Balance 480 / 480 660 / 660
Review of Systems
-
Respiratory: Reports No Symptoms
Cardiac: Reports No Symptoms
Abdomen/GI: Denies Abdominal Pain or Nausea
Physical Exam
-
General: No Apparent Distress and Comfortable
HEENT: Negative Oxygen
Respiratory: Clear to Auscultation
Cardiac: Regular Rhythm and S1/S2; Negative Murmur or Rub
GI: Soft, Nontender and Nondistended
Musculoskeletal: No Edema and Other (Left leg dressing )
Neuro: Awake, Alert, Oriented, No Motor Deficits and Nonfocal/Grossly Intact
Psych: Calm
[2024-07-19 12:26] LABS: Glucose - Point of Care 183 mg/dl (70-99)
[2024-07-19] MEDS: NOVOLOG FLEXPEN-LOW RESISTANCE 1 UNITS SC ×2 (12:48→17:17)
[2024-07-19] MEDS: PROCARDIA XL (EXTENDED RELEASE) 30 MG PO ×2 (12:53→20:06)
[2024-07-19] MEDS: FERRLECIT 110 MG IV (14:16)
[2024-07-19 15:40] VITALS: BP 155/73
[2024-07-19 16:34] LABS: Glucose - Point of Care 153 mg/dl (70-99)
[2024-07-19 20:04] VITALS: BP 144/68
--- NOTE | 2024-07-19 20:50 | PTCARENOTE ---
Pt refusing placement of manzanares catheter despite education. Voiding in urinal to maintain accurate I/Os.
[2024-07-19 22:26] LABS: Glucose - Point of Care 123 mg/dl (70-99)
[2024-07-19 23:22] VITALS: BP 129/56
[2024-07-20 05:24] LABS: Hemoglobin 8.1 g/dL (13.0-18.0); Mean Corp Hgb Conc. 32.4 g/dL (33.0-37.0); Mean Corpuscular Hgb 27.2 pg (27.0-31.0); Mean Corpuscular Volume 83.9 fL (80.0-94.0); Platelet Count 278 10^3/uL (130-400); Red Blood Cell Count 2.98 10^6/uL (4.70-6.10); Red Cell Dist. Width 14.6 % (11.5-14.5); White Blood Cell Count 6.1 10^3/uL (4.8-10.8)
[2024-07-20 05:32] LABS: INR 1.04; PT 13.4 Sec (11.4-14.6)
[2024-07-20 05:40] LABS: Vancomycin Random 14.9 ug/ml
[2024-07-20 05:47] LABS: Blood Urea Nitrogen 53 mg/dl (9-20); Calcium 8.6 mg/dl (8.4-10.2); Carbon Dioxide 25 mmol/L (22-30); Chloride 104 mmol/L (98-107); Estimated Creatinine Clearance 27 ml/min; Glucose 120 mg/dl (70-99); Potassium 4.3 mmol/L (3.5-5.1); Sodium 141 mmol/L (135-145); eGFR 20.31
[2024-07-20 07:00] VITALS: BP 137/59
[2024-07-20 07:17] LABS: Glucose - Point of Care 134 mg/dl (70-99)
[2024-07-20] MEDS: NOVOLOG FLEXPEN-LOW RESISTANCE SC (07:31)
--- NOTE | 2024-07-20 07:43 | PHA.VAN.FU ---
Vancomycin Assessment / Plan
- Assessment
Renal Function: Stable
WBC's are: WNL
In the past 24 hrs, patient has been: Afebrile
- Assessment - Therapeutic Drug Monitoring
Random Level: 14.9
- Dosing Plan
Dosing by Level: Hold off on dosing today
- Monitoring Plan
Random Level: 11/4 IN AM
- Follow Up
Pharmacy will continue to follow.
Vancomycin Follow UP
- -
Patient Age: 63
Patient Sex: Male
Vancomycin Day #: 11
Indication: Bone And Joint
Requesting Provider: Marely Camarillo
Pertinent Antimicrobial Allergies:
NKDA
Height / Weight:
Height 6 ft 3 in
Actual Weight 83.092 kg
Pertinent Past Medical History: DM II, CKD
- Vital Signs / Lab Results
Temp Pulse Resp BP Pulse Ox
97.5 F 72 17 129/56 94
07/19/24 23:22 07/19/24 23:22 07/19/24 23:22 07/19/24 23:22 07/19/24 23:22
Lab Results - Hematology
07/18/24 07/19/24 07/20/24
06:41 05:22 05:02
WBC 7.2 6.5 6.1
Lab Results - Chemistry
07/18/24 07/19/24 07/20/24
06:41 05:22 05:02
BUN 43 H 48 H 53 H
Creatinine 3.1 H 3.3 H 3.3 H
Estimated Creat Clear 28 27 27
Albumin 3.1 L
Microbiology Results
07/17/24 14:30 Anaerobic Culture - Preliminary
Foot - Left Culture pending. Anaerobic cultures are examined after 3
days incubation. Additional information to follow.
07/17/24 14:30 Wound Culture - Preliminary
Foot - Left Staph aureus MRSA
Gram Stain - Preliminary
07/14/24 11:53 Wound Culture - Final
Foot - Left Staph aureus MRSA
Gram Stain - Final
07/14/24 11:53 Anaerobic Culture - Final
Foot - Left NO ANAEROBES ISOLATED
Therapeutic Drug Monitoring
Random Vancomycin 14.9 ug/ml 07/20/24 05:02
[2024-07-20] MEDS: HEPARIN 5000 UNITS SC ×2 (08:14→20:54)
[2024-07-20] MEDS: PROCARDIA XL (EXTENDED RELEASE) 30 MG PO ×2 (08:14→20:54)
[2024-07-20] MEDS: COREG 25 MG PO (08:14)
[2024-07-20] MEDS: FLOMAX 0.4 MG PO (08:14)
[2024-07-20] MEDS: ATIVAN 1 MG PO (08:14)
[2024-07-20] MEDS: NEURONTIN 300 MG PO (08:14)
[2024-07-20] MEDS: WELLBUTRIN SR (12 hour sustained release) 150 MG PO ×2 (08:14→20:54)
[2024-07-20] MEDS: VISBIOME 1 CAP PO (08:14)
--- NOTE | 2024-07-20 09:27 | W.PN.NEPH.PH ---
Today's Communication / Plan
-
bx
Assessment/Plan
-
Impression:
Acute kidney injury
CKD stage IIIb baseline creatinine 1.6
Metabolic acidosis
Edema
Shortness of breath
Left Foot osteomyelitis
HTN
+PR3 Ab
Plan:
follow BMP
plan for renal biopsy sunday, hold heparin sunday
off RASi, Lasix
vanco levels acceptable
If cr continues to rise, may need to consider pulse steroids. Not today
have discussed HD with patient as a possibility, he understands
miralax prn
-
-
Date of Service: July 20, 2024
CC / HPI / ROS
-
Chief Complaint:
IVY, ckd
History of Present Illness:
IVY/Cr unchanged at 3.3, BUN rising
s/p I&D left foot 07/15
BP high stable
no fever
on abx for LLE osteo
Review of Systems:
no cp or sob
no n/v
PVR acceptable
c/o constipation
Labs
-
Labs:
WBC 6.1 10^3/uL (4.8-10.8) 07/20/24 05:02
RBC 2.98 10^6/uL (4.70-6.10) L 07/20/24 05:02
Hgb 8.1 g/dL (13.0-18.0) L 07/20/24 05:02
Hct 25.0 % (39.0-52.0) L 07/20/24 05:02
Plt Count 278 10^3/uL (130-400) 07/20/24 05:02
Sodium 141 mmol/L (135-145) 07/20/24 05:02
Potassium 4.3 mmol/L (3.5-5.1) 07/20/24 05:02
Chloride 104 mmol/L (98-107) 07/20/24 05:02
Carbon Dioxide 25 mmol/L (22-30) 07/20/24 05:02
BUN 53 mg/dl (9-20) H 07/20/24 05:02
Creatinine 3.3 mg/dL (0.7-1.3) H 07/20/24 05:02
eGFR 20.31 07/20/24 05:02
Glucose 120 mg/dl (70-99) H 07/20/24 05:02
Calcium 8.6 mg/dl (8.4-10.2) 07/20/24 05:02
Zpu-F-Obqizzovqwf Pept 77140 pg/ml 07/09/24 18:23
Albumin 3.1 g/dl (3.5-5.0) L 07/18/24 06:41
Physical Exam
-
Vital Signs:
Vital Signs
Temp Pulse Resp BP Pulse Ox
97.9 F 68 14 137/59 94
07/20/24 07:00 07/20/24 07:00 07/20/24 07:00 07/20/24 07:00 07/20/24 08:00
Cardiovascular:: Regular rate and rhythm
Respiratory:: Bilateral: CTA
Lung Excursion:: Normal
Abdomen:: Nontender and Soft
Bowel Sounds:: Normal
Extremity Edema:: None: Bilateral:
[2024-07-20 11:45] LABS: Glucose - Point of Care 150 mg/dl (70-99)
[2024-07-20] MEDS: NOVOLOG FLEXPEN-LOW RESISTANCE 1 UNITS SC ×2 (11:46→16:28)
[2024-07-20 13:14] LABS: Glucose - Point of Care 159 mg/dl (70-99)
[2024-07-20 13:30] VITALS: BP 127/75
--- NOTE | 2024-07-20 13:30 | W.PN.HOSP.TC ---
Today's Communication/Plan
-
see note
Assessment / Plan
Assessment / Plan
Toe Xray
IMPRESSION:
Postoperative changes of distal fifth metatarsal and phalanx amputation. There is a soft tissue defect along the lateral aspect of the forefoot. There is an erosion along the lateral aspect of the fourth metatarsal head which is new from prior
radiograph in 2021 and may represent osteomyelitis.
Mild degenerative changes of the first MTP.
MRI
IMPRESSION:
Rodney confluent osteomyelitis throughout the entire fourth metatarsal and majority of the fourth digit proximal phalanx. The fourth digit middle and distal phalanges demonstrate osteitis without rodney osteomyelitis.
Osteitis throughout the third digit without rodney osteomyelitis.
Prominent ulceration along the lateral forefoot with underlying fluid tract and phlegmon/soft tissue abscess measuring up to 2.1 x 2.6 x 2.9 cm.

1. Diabetic foot infection from MRSA- Left foot
-Given for spontaneously opening and draining left foot wound
-X-ray and MRI foot report as above
-Lower extremity arterial Doppler normal
-s/p LT foot I & D with bone resection form Lt 4th metatarsal on 07/14
-S/p Left 4th toe amputation on 07/17
-Intraoperative culture growing MRSA
-Antibiotics adjusted to vancomycin and Augmentin. ID recommended 6 wks of IV vanc and 10 days of Augmentin.
2. IVY On CKD IIIB
Nephrotic range proteinuria
-Baseline cr 1.5-1.7, currently elevated to 3.3
-Spot check showing nephrotic range proteinuria 4.3g/24hr. for 24-hour urine collection has been ordered
-Normal C3/C4 level. BRANDON/MPO negative. PR3 Ab marginally positive 35 (normal 0-19)
-Renal biopsy on Sunday.
-manzanares catheter ordered as patient was having on/off retention issues pre-op, will like to address if contributing at this point.
3. Metabolic acidosis
-resolved
4. Chronic Diastolic HF
-no signs of exacerbation,.
-CXR and exam not consisted with HF
-Monitor volume status
-Cardiology help appreciated, lasix on hold with renal dysfunction
5. Type II DM
-Maintain on insulin sliding scale/Accu-Cheks
6. Presumed Chronic urinary repletion
-PVR in 200-300 range in general with some time retaining more
-Patient able to void
-manzanares catheter ordered with ongoing renal failure.
7. Essential HTN - uncontrolled
Dizziness
-Patient had episode of dizziness and noted to be bradycardic. Was straining for bowel movement and may have vasovagal component as well
-Transfer to telemetry and hold Coreg for today can be resumed back based on clinical improvement
-Continue Procardia/hydralazine
8. Constipation
-providing oral laxatives, suppos if no BM with oral laxatives
Full code
Heparin subq
Anticipated Discharge: 24 - 48 hours
Subjective/Interval History
-
Date of Service: July 20, 2024
Patient reported to feeling dizzy/unwell while straining for bowel movement
Also has been constipated for last 3 days
Denies abdominal pain/nausea/vomiting
Objective Data
-
Labs:
Laboratory Results
07/20/24
05:02
WBC 6.1
Hgb 8.1 L
Hct 25.0 L
Plt Count 278
PT 13.4
INR 1.04
Sodium 141
Potassium 4.3
Chloride 104
Carbon Dioxide 25
BUN 53 H
Creatinine 3.3 H
Glucose 120 H
Calcium 8.6
Vital Signs:
Vital Signs
Temp Pulse Resp BP Pulse Ox
97.9 F 68 14 137/59 94
07/20/24 07:00 07/20/24 07:00 07/20/24 07:00 07/20/24 07:00 07/20/24 08:00
I&O
07/19/24 07/20/24 07/21/24
07:59 06:59 06:59
Intake Total
Output Total
Balance
Review of Systems
-
Respiratory: Reports No Symptoms
Cardiac: Reports No Symptoms
Abdomen/GI: Reports Constipated; Denies Abdominal Pain, Nausea or Vomiting
Physical Exam
-
General: Comfortable; Negative Appears in Distress
HEENT: Negative Oxygen
GI: Soft, Nontender and Nondistended
Musculoskeletal: Other (Left foot dressing in place)
Neuro: Awake, Alert, Oriented and No Motor Deficits
[2024-07-20] MEDS: DUPHALAC/CHRONULAC 20 GRAMS PO ×2 (14:48→23:52)
[2024-07-20 15:00] VITALS: BP 108/55
[2024-07-20 16:04] LABS: Glucose - Point of Care 164 mg/dl (70-99)
[2024-07-20] MEDS: DULCOLAX 10 MG RECTAL (17:15)
[2024-07-20 19:28] VITALS: BP 143/72
[2024-07-20] MEDS: MIRALAX 17 GRAMS PO (20:53)
[2024-07-20] MEDS: ATIVAN 0.5 MG PO (21:59)
[2024-07-20 23:23] VITALS: BP 154/73
[2024-07-21] VITALS (9 sets, daily range): BP systolic 69–153; BP diastolic 60–89; BMI 22.9
[2024-07-21 00:03] LABS: Glucose - Point of Care 105 mg/dl (70-99)
[2024-07-21 05:53] LABS: Hematocrit 23.6 % (39.0-52.0); Hemoglobin 7.9 g/dL (13.0-18.0); Mean Corp Hgb Conc. 33.5 g/dL (33.0-37.0); Mean Corpuscular Hgb 27.8 pg (27.0-31.0); Mean Corpuscular Volume 83.1 fL (80.0-94.0); Mean Platelet Volume 9.8 fL (7.4-10.4); Platelet Count 257 10^3/uL (130-400); Red Blood Cell Count 2.84 10^6/uL (4.70-6.10); Red Cell Dist. Width 14.6 % (11.5-14.5); White Blood Cell Count 5.6 10^3/uL (4.8-10.8)
[2024-07-21 05:56] LABS: INR 1.11; PT 14.1 Sec (11.4-14.6)
[2024-07-21 06:08] LABS: Blood Urea Nitrogen 60 mg/dl (9-20); Calcium 8.7 mg/dl (8.4-10.2); Carbon Dioxide 23 mmol/L (22-30); Chloride 106 mmol/L (98-107); Estimated Creatinine Clearance 26 ml/min; Glucose 104 mg/dl (70-99); Potassium 4.5 mmol/L (3.5-5.1); Sodium 141 mmol/L (135-145)
[2024-07-21 06:13] LABS: Vancomycin Random 12.1 ug/ml
[2024-07-21 06:15] LABS: Glucose - Point of Care 108 mg/dl (70-99)
[2024-07-21] MEDS: NOVOLOG FLEXPEN-LOW RESISTANCE SC ×2 (07:33→12:10)
[2024-07-21] MEDS: WELLBUTRIN SR (12 hour sustained release) 150 MG PO ×2 (08:19→19:47)
[2024-07-21] MEDS: VISBIOME 1 CAP PO (08:19)
[2024-07-21] MEDS: PROCARDIA XL (EXTENDED RELEASE) 30 MG PO ×2 (08:19→19:47)
[2024-07-21] MEDS: FLOMAX 0.4 MG PO (08:19)
[2024-07-21] MEDS: DUPHALAC/CHRONULAC PO ×4 (08:19→23:24)
--- NOTE | 2024-07-21 08:21 | PHA.VAN.FU ---
Vancomycin Assessment / Plan
- Assessment
Renal Function: SCR Increasing (3,3->3.4)
WBC's are: WNL
In the past 24 hrs, patient has been: Afebrile
Concomitant Antimicrobials: none
- Assessment - Therapeutic Drug Monitoring
Random Level: 12.1 (~43 hours after last 1000 mg dose)
Calculated half life (H): ~ 80 hours - based on last 2 random levels
- Dosing Plan
Continue: dosing by random level
Dosing by Level: Hold off on dosing today (based on half level pt will require extended dosing interval)
- Monitoring Plan
Random Level: 07/22 06
based on half life from yesterday, anticipate dosing interval of 72 hours
- Follow Up
Pharmacy will continue to follow.
Vancomycin Follow UP
- -
Patient Age: 63
Patient Sex: Male
Vancomycin Day #: 12
Indication: Bone And Joint
Requesting Provider: Marely Camarillo
Pertinent Antimicrobial Allergies:
NKDA
Height / Weight:
Height 6 ft 3 in
Actual Weight 83.234 kg
Pertinent Past Medical History: DM II, CKD
- Vital Signs / Lab Results
Temp Pulse Resp BP Pulse Ox
98.2 F 88 16 153/89 98
07/21/24 03:19 07/21/24 03:19 07/21/24 03:19 07/21/24 03:19 07/21/24 03:19
Lab Results - Hematology
07/19/24 07/20/24 07/21/24
05:22 05:02 05:04
WBC 6.5 6.1 5.6
Lab Results - Chemistry
07/19/24 07/20/24 07/21/24
05:22 05:02 05:04
BUN 48 H 53 H 60 H
Creatinine 3.3 H 3.3 H 3.4 H
Estimated Creat Clear 27 27 26
Microbiology Results
07/17/24 14:30 Anaerobic Culture - Preliminary
Foot - Left NO ANAEROBES ISOLATED
07/17/24 14:30 Wound Culture - Preliminary
Foot - Left Staph aureus MRSA
Gram Stain - Preliminary
07/14/24 11:53 Wound Culture - Final
Foot - Left Staph aureus MRSA
Gram Stain - Final
07/14/24 11:53 Anaerobic Culture - Final
Foot - Left NO ANAEROBES ISOLATED
Therapeutic Drug Monitoring
Random Vancomycin 12.1 ug/ml 07/21/24 05:04
[2024-07-21] MEDS: ATIVAN 0.5 MG PO ×3 (08:28→19:47)
--- NOTE | 2024-07-21 08:39 | W.PN.NEPH.PH ---
Today's Communication / Plan
-
Renal biopsy today
Follow-up hemoglobin and BMP
Assessment/Plan
-
Impression:
Acute kidney injury
CKD stage IIIb baseline creatinine 1.6
Metabolic acidosis
Edema
Shortness of breath
Left Foot osteomyelitis
HTN
+PR3 Ab
Nephrotic range proteinuria of 5 g
Plan:
follow BMP, creatinine up to 3.4
plan for renal biopsy today hold heparin sunday am
Follow-up hemoglobin after biopsy
off RASi and Lasix
vanco levels acceptable
If cr continues to rise, may need to consider pulse steroids. Not today
have discussed HD with patient as a possibility, he understands
miralax prn
-
-
Date of Service: July 21, 2024
CC / HPI / ROS
-
Chief Complaint:
IVY, ckd
History of Present Illness:
IVY/Cr at 3.4 BUN rising
s/p I&D left foot 07/15
BP high stable
no fever
on abx for LLE osteo
Review of Systems:
no cp or sob
no n/v
PVR acceptable
c/o constipation
Labs
-
Labs:
WBC 5.6 10^3/uL (4.8-10.8) 07/21/24 05:04
RBC 2.84 10^6/uL (4.70-6.10) L 07/21/24 05:04
Hgb 7.9 g/dL (13.0-18.0) L 07/21/24 05:04
Hct 23.6 % (39.0-52.0) L 07/21/24 05:04
Plt Count 257 10^3/uL (130-400) 07/21/24 05:04
Sodium 141 mmol/L (135-145) 07/21/24 05:04
Potassium 4.5 mmol/L (3.5-5.1) 07/21/24 05:04
Chloride 106 mmol/L (98-107) 07/21/24 05:04
Carbon Dioxide 23 mmol/L (22-30) 07/21/24 05:04
BUN 60 mg/dl (9-20) H 07/21/24 05:04
Creatinine 3.4 mg/dL (0.7-1.3) H 07/21/24 05:04
eGFR 19.60 07/21/24 05:04
Glucose 104 mg/dl (70-99) H 07/21/24 05:04
Calcium 8.7 mg/dl (8.4-10.2) 07/21/24 05:04
Xjj-X-Iimbgunirfb Pept 88713 pg/ml 07/09/24 18:23
Albumin 3.1 g/dl (3.5-5.0) L 07/18/24 06:41
Physical Exam
-
Vital Signs:
Vital Signs
Temp Pulse Resp BP Pulse Ox
98.2 F 88 16 153/89 98
07/21/24 03:19 07/21/24 03:19 07/21/24 03:19 07/21/24 03:19 07/21/24 03:19
Cardiovascular:: Regular rate and rhythm
Respiratory:: Bilateral: CTA
Lung Excursion:: Normal
Abdomen:: Nontender and Soft
Bowel Sounds:: Normal
Extremity Edema:: None: Bilateral:
--- NOTE | 2024-07-21 09:25 | W.PN.ID1 ---
Addendum entered and electronically signed by Fili Camarillo DO 07/21/24 12:50:
I personally examined and evaluated the patient. I reviewed the resident�s note and agree with findings and plan as documented in the resident�s note, except for the following.
Creatinine continues to rise to some degree. Patient for renal biopsy later today. I am somewhat concerned about the potential for vancomycin to have a negative impact on renal function.
Cultures reviewed, with recovery of MRSA
Will transition antibiotic therapy from vancomycin to daptomycin 800 mg IV every 48 hours. Patient will continue to need a full 6-week course of therapy.
Home infusion sheet will be given to Case Management.
Will be following up with patient in the office in 2 to 3 weeks.
Original Note:
Date of Service
Date of Service: July 21, 2024
Today's Communication
Continue IV abx
Assessment / Plan
Impression/Assessment:
Severe left foot SSTI with abscess
Left fourth metatarsal osteomyelitis.
DM2
Peripheral Neuropathy
Hypertension
CKD III
Anxiety / Depression
Lumbar DDD
Recommendations:
-Continue vancomycin - plan 6 week course given residual osteomyelitis of the metatarsal. Finished course of 10 days of Augmentin.
-Picc line in place
-Script for IV abx to caseworker intake today
-Renal biopsy pending today
Chief Complaint
-: Other (Left foot infection / osteomyelitis)
Subjective / Review of Systems
Patient feels well overall and denies any abdominal pain, fever or chills.
Review of Systems: No Fever, No Chills and No Abdominal Pain
Vital Signs / Physical Exam
Vital Signs
Vital Signs
Temp Pulse Resp BP Pulse Ox
97.7 F 81 16 146/78 94
07/21/24 07:20 07/21/24 07:20 07/21/24 07:20 07/21/24 07:20 07/21/24 07:20
Physical Exam
Constitutional: No Acute Distress
Head: Normocephalic
Cardiovascular: Regular Rate and S1/S2; Negative Murmur or Rub
Pulmonary: Clear
Gastrointestinal: Soft, Non Tender and Non Distended
Skin: Warm and Dry
Wound: Other (dressing clean, dry, intact)
Neurological: Awake, Alert and Oriented
Objective Data
Lab Data
Lab Results
07/21/24 05:04
07/21/24 05:04
ESR 93 mm/hour (0-20) H 07/09/24 18:23
PT 14.1 Sec (11.4-14.6) 07/21/24 05:04
INR 1.11 07/21/24 05:04
Estimated Creat Clear 26 ml/min 07/21/24 05:04
Lactic Acid 0.5 mmol/L (0.7-2.0) L 07/09/24 19:38
Total Bilirubin 0.4 mg/dl (0.2-1.3) 07/18/24 06:41
AST 18 U/L (17-59) 07/18/24 06:41
ALT 20 U/L (0-50) 07/18/24 06:41
Alkaline Phosphatase 143 U/L (38-126) H 07/18/24 06:41
C-Reactive Protein 63.10 mg/L (0.0-10.00) H 07/09/24 18:23
Most recent labs reviewed.
Micro Results:
07/17/24 14:30 Anaerobic Culture - Preliminary
Foot - Left NO ANAEROBES ISOLATED
07/17/24 14:30 Wound Culture - Preliminary
Foot - Left Staph aureus MRSA
Gram Stain - Preliminary
07/14/24 11:53 Wound Culture - Final
Foot - Left Staph aureus MRSA
Gram Stain - Final
07/14/24 11:53 Anaerobic Culture - Final
Foot - Left NO ANAEROBES ISOLATED
07/14/24 11:53 Tissue Culture - Final
Foot - Left Staph aureus MRSA
Gram Stain - Final
07/09/24 19:38 Blood Culture - Final
Blood/Venous No Growth - Final Report
07/09/24 19:38 Blood Culture - Final
Blood/Venous No Growth - Final Report
07/09/24 18:23 Wound Culture - Final
Foot - Left Staph aureus MRSA
Gram Stain - Final
07/10/24 00:02 MRSA Screen - Final
Nose No Methicillin Resistant Staphylococcus aureus isolated.
07/09/24 18:23 Influenza Types A & B ([facility]A) - Final
Nasal Swab Negative for Influenza A & B, NAAT
Negative results must be combined with clinical observations
and patient history.
Nucleic Acid Amplification test (NAAT)performed on the
[employer] platform.
Imaging:
07/10/2024 MRI left lower extremity: Rodney confluent osteomyelitis throughout the entire fourth metatarsal and majority of the fourth digit proximal phalanx. The fourth digit middle and distal phalanges demonstrate osteitis without rodney
osteomyelitis. There is a prominent ulceration along the lateral forefoot with underlying fluid tract and phlegmon/soft tissue abscess measuring up to 2.1 x 2.6 x 2.9 cm.
07/09/2024 X-ray left foot: There are postoperative changes of the distal fifth metatarsal and fifth toe amputation. A small soft tissue defect along the lateral aspect of the forefoot is noted. There is erosion of the fourth metatarsal head.
Mild degenerative changes of the first metatarsal phalangeal joint noted. There are likely hammertoe deformities. Erosions along the lateral aspect of the fourth metatarsal head are new from prior radiographs from 2021 and may represent
osteomyelitis. Please see full dictation for additional detail.
--- NOTE | 2024-07-21 10:11 | W.PN.HOSP.TC ---
Addendum entered and electronically signed by Sean Segal MD 07/21/24 13:13:
Imaging
CXR
IMPRESSION:
No acute cardiopulmonary abnormality.
Toe Xray
IMPRESSION:
Postoperative changes of distal fifth metatarsal and phalanx amputation. There is a soft tissue defect along the lateral aspect of the forefoot. There is an erosion along the lateral aspect of the fourth metatarsal head which is new from prior
radiograph in 2021 and may represent osteomyelitis.
Mild degenerative changes of the first MTP.
Likely hammertoe deformities.
2d echo
CONCLUSIONS
1. Mild concentric LVH with EF 60-65%
2. Mild RVE
3. LAE
4. No evidence of significant valvular disease
MRI
IMPRESSION:
Rodney confluent osteomyelitis throughout the entire fourth metatarsal and majority of the fourth digit proximal phalanx. The fourth digit middle and distal phalanges demonstrate osteitis without rodney osteomyelitis.
Osteitis throughout the third digit without rodney osteomyelitis.
Prominent ulceration along the lateral forefoot with underlying fluid tract and phlegmon/soft tissue abscess measuring up to 2.1 x 2.6 x 2.9 cm.
Renal Ultrasound
IMPRESSION:
Nonobstructing right renal calculus. No hydronephrosis, bilaterally. Bilateral renal cysts. Significant postvoid bladder residual.
TALIA
IMPRESSION: Normal ankle brachial indices on each side, and normal waveforms. No focal arterial stenosis demonstrated on either side.
Foot xray
IMPRESSION:
1. Destruction of the distal aspect of the fourth metatarsal and proximal aspect of the proximal phalanx of the fourth digit, with soft tissue gas. Findings are likely related to osteomyelitis and/or postoperative change.
2. Prior amputation of the fifth phalanx and distal aspect of the fifth metatarsal.
CXR
IMPRESSION:
Right upper partially PICC with catheter tip projecting over the superior vena cava.
Minimal bibasilar atelectasis.
Physical Exam
NAD, resting comfortably in bed
Scleral anicteric
Moist mucous membranes
No JVD
CTA bilateral
Normal S1-S2 no murmurs
Soft nontender nondistended bowel sounds active
No peripheral pitting edema
Left foot dressing in place
Moves extremities spontaneously
AAOx3
Assessment and Plan
Left foot�diabetic foot infection, culture growing MRSA
-Infectious diseases change vancomycin to daptomycin every 48 hours for 6 weeks. Change needed due to renal function progressively getting worse
-PICC line placed already
-Outpatient podiatry follow-up
IVY on CKD stage IIIb
-Baseline Cr around 1.5-1.7
-Possibly intrarenal although unclear as to etiology
-Nonoligouric
-Renal biopsy today, currently n.p.o.
-Avoid nephrotoxins and hypotension
-Now with Manzanares
-Renal diet
Hypertension
-Continue antihypertensive
Urinary retention�presumed chronic
-Now with Manzanares
-Started on flomax
-Ougtpatient Uro follow up
Diabetes
-SSI low
-Accuchecks
-BG 140-180
-CCDiet when able to eat
Original Note:
Today's Communication/Plan
-
Renal biopsy pending
Continue IV antibiotics
Assessment / Plan
Assessment / Plan
Impression:
63-year-old male presents for right foot infection, status post toe amputation, found to have MRSA on IV vancomycin
Plan:
# Diabetic foot infection from MRSA- Left foot
-Given for spontaneously opening and draining left foot wound
-X-ray and MRI demonstrated osteomyelitis
-Lower extremity arterial Doppler normal
-s/p LT foot I & D with bone resection form Lt 4th metatarsal on 07/14
-S/p Left 4th toe amputation on 07/17
-Intraoperative culture growing MRSA
-Antibiotics adjusted to vancomycin and Augmentin. ID recommended 6 wks of IV vanc and 10 days of Augmentin.
#IVY On CKD IIIB
Nephrotic range proteinuria
-Baseline cr 1.5-1.7, currently elevated to 3.4, continuing to uptrend
-Spot check showing nephrotic range proteinuria 4.3g/24hr. for 24-hour urine collection has been ordered
-Normal C3/C4 level. BRANDON/MPO negative. PR3 Ab marginally positive 35 (normal 0-19)
Renal biopsy pending
-manzanares catheter ordered as patient was having on/off retention issues pre-op, will like to address if contributing at this point.
#Metabolic acidosis
-resolved
# Chronic Diastolic HF
-no signs of exacerbation,.
-CXR and exam not consisted with HF
-Monitor volume status
-Cardiology help appreciated, lasix on hold with renal dysfunction
# Type II DM
-Maintain on insulin sliding scale/Accu-Cheks
# Presumed Chronic urinary repletion
-PVR in 200-300 range in general with some time retaining more
-Patient able to void
-manzanares catheter ordered with ongoing renal failure.
# Essential HTN
Continue home anti-hypertensive meds
#Dizziness
-resolved
-Patient had episode of dizziness and noted to be bradycardic. Was straining for bowel movement and may have vasovagal component as well
-Transfer to telemetry and hold Coreg for today can be resumed back based on clinical improvement
-Continue Procardia/hydralazine
# Constipation
-providing oral laxatives, suppos if no BM with oral laxatives
Full code
Heparin subq
Data:
toe Xray
IMPRESSION:
Postoperative changes of distal fifth metatarsal and phalanx amputation. There is a soft tissue defect along the lateral aspect of the forefoot. There is an erosion along the lateral aspect of the fourth metatarsal head which is new from prior
radiograph in 2021 and may represent osteomyelitis.
Mild degenerative changes of the first MTP.
MRI
IMPRESSION:
Rodney confluent osteomyelitis throughout the entire fourth metatarsal and majority of the fourth digit proximal phalanx. The fourth digit middle and distal phalanges demonstrate osteitis without rodney osteomyelitis.
Osteitis throughout the third digit without rodney osteomyelitis.
Prominent ulceration along the lateral forefoot with underlying fluid tract and phlegmon/soft tissue abscess measuring up to 2.1 x 2.6 x 2.9 cm.
Anticipated Discharge: > 48 hours
Subjective/Interval History
-
Date of Service: July 21, 2024
No acute events overnight
Objective Data
-
Labs:
Laboratory Results
07/21/24
05:04
WBC 5.6
Hgb 7.9 L
Hct 23.6 L
Plt Count 257
PT 14.1
INR 1.11
Sodium 141
Potassium 4.5
Chloride 106
Carbon Dioxide 23
BUN 60 H
Creatinine 3.4 H
Glucose 104 H
Calcium 8.7
Vital Signs:
Vital Signs
Temp Pulse Resp BP Pulse Ox
97.7 F 81 16 146/78 94
07/21/24 07:20 07/21/24 07:20 07/21/24 07:20 07/21/24 07:20 07/21/24 07:20
I&O
07/20/24 07/21/24 07/22/24
06:59 06:59 06:59
Intake Total 1440 / 1440
Output Total
Balance 1440 / 1440
Review of Systems
-
Constitutional: Reports No Symptoms
Respiratory: Reports No Symptoms
Cardiac: Reports No Symptoms
Abdomen/GI: Reports No Symptoms
Physical Exam
-
General: Well Developed, Well Nourished, No Apparent Distress and Conversant
Respiratory: Clear to Auscultation
Cardiac: Regular Rhythm and S1/S2
GI: Soft, Nontender and Nondistended
Musculoskeletal: Other (Right foot healing well, bandaged patient reports no sensation to palpation.)
Skin: Warm and Dry
Neuro: Awake, Alert, Oriented and AO x 3
Psych: Calm and Intact Judgement/Insight
Data Reviewed
-
Labs: Labs Reviewed by me and Discussed with Physician
[2024-07-21 12:07] LABS: Glucose - Point of Care 122 mg/dl (70-99)
[2024-07-21 14:51] LABS: Glucose - Point of Care 108 mg/dl (70-99)
[2024-07-21] MEDS: CUBICIN 16 MG IV (15:22)
--- NOTE | 2024-07-21 15:28 | PTCARENOTE ---
Patient received from IR from [facility]. Dressing CDI. Surrounding skin CDI. VSS. Patient bedrest with HOB <30 degrees x6 hrs.
[2024-07-21] MEDS: TYLENOL 650 MG PO (15:34)
--- NOTE | 2024-07-21 15:41 | CM ---
Chart reviewed. Met with pt
Pt will need IV antibiotics - discussed with pt - no preference for agency
ID to change antibiotic - will notify CM
Plan - anticipate home with home infusion when medically ready
[2024-07-21 17:46] LABS: Glucose - Point of Care 181 mg/dl (70-99)
[2024-07-21] MEDS: NOVOLOG FLEXPEN-LOW RESISTANCE 1 UNITS SC (18:03)
[2024-07-21 21:33] LABS: Glucose - Point of Care 123 mg/dl (70-99)
[2024-07-21 22:41] LABS: Hematocrit 23.6 % (39.0-52.0)
[2024-07-22] VITALS (9 sets, daily range): BP systolic 119–159; BP diastolic 63–76; PULSE 66; O2SAT 94; BMI 23.0
[2024-07-22 06:14] LABS: Hematocrit 25.9 % (39.0-52.0); Hemoglobin 8.4 g/dL (13.0-18.0); Mean Corp Hgb Conc. 32.4 g/dL (33.0-37.0); Mean Corpuscular Volume 86.3 fL (80.0-94.0); Mean Platelet Volume 9.9 fL (7.4-10.4); Platelet Count 264 10^3/uL (130-400); Red Cell Dist. Width 14.8 % (11.5-14.5)
[2024-07-22 06:30] LABS: Blood Urea Nitrogen 60 mg/dl (9-20); Calcium 8.7 mg/dl (8.4-10.2); Carbon Dioxide 24 mmol/L (22-30); Chloride 106 mmol/L (98-107); Creatine Phosphokinase 59 U/L (55-170); Estimated Creatinine Clearance 28 ml/min; Glucose 95 mg/dl (70-99); Potassium 4.7 mmol/L (3.5-5.1); Sodium 142 mmol/L (135-145); eGFR 21.07
[2024-07-22 07:35] LABS: Glucose - Point of Care 109 mg/dl (70-99)
[2024-07-22] MEDS: NOVOLOG FLEXPEN-LOW RESISTANCE SC ×3 (08:23→16:49)
[2024-07-22] MEDS: DUPHALAC/CHRONULAC PO ×3 (08:25→21:27)
[2024-07-22] MEDS: WELLBUTRIN SR (12 hour sustained release) 150 MG PO ×2 (08:27→21:00)
[2024-07-22] MEDS: FLOMAX 0.4 MG PO (08:27)
[2024-07-22] MEDS: PROCARDIA XL (EXTENDED RELEASE) 30 MG PO ×2 (08:27→21:00)
[2024-07-22] MEDS: VISBIOME 1 CAP PO (08:27)
--- NOTE | 2024-07-22 08:38 | W.PN.HOSP.TC ---
Addendum entered and electronically signed by Sean Segal MD 07/22/24 15:34:
Imaging
CXR
IMPRESSION:
No acute cardiopulmonary abnormality.
Toe Xray
IMPRESSION:
Postoperative changes of distal fifth metatarsal and phalanx amputation. There is a soft tissue defect along the lateral aspect of the forefoot. There is an erosion along the lateral aspect of the fourth metatarsal head which is new from prior
radiograph in 2021 and may represent osteomyelitis.
Mild degenerative changes of the first MTP.
Likely hammertoe deformities.
2d echo
CONCLUSIONS
1. Mild concentric LVH with EF 60-65%
2. Mild RVE
3. LAE
4. No evidence of significant valvular disease
MRI
IMPRESSION:
Rodney confluent osteomyelitis throughout the entire fourth metatarsal and majority of the fourth digit proximal phalanx. The fourth digit middle and distal phalanges demonstrate osteitis without rodney osteomyelitis.
Osteitis throughout the third digit without rodney osteomyelitis.
Prominent ulceration along the lateral forefoot with underlying fluid tract and phlegmon/soft tissue abscess measuring up to 2.1 x 2.6 x 2.9 cm.
Renal Ultrasound
IMPRESSION:
Nonobstructing right renal calculus. No hydronephrosis, bilaterally. Bilateral renal cysts. Significant postvoid bladder residual.
TALIA
IMPRESSION: Normal ankle brachial indices on each side, and normal waveforms. No focal arterial stenosis demonstrated on either side.
Foot xray
IMPRESSION:
1. Destruction of the distal aspect of the fourth metatarsal and proximal aspect of the proximal phalanx of the fourth digit, with soft tissue gas. Findings are likely related to osteomyelitis and/or postoperative change.
2. Prior amputation of the fifth phalanx and distal aspect of the fifth metatarsal.
CXR
IMPRESSION:
Right upper partially PICC with catheter tip projecting over the superior vena cava.
Minimal bibasilar atelectasis.
Physical Exam
NAD, resting comfortably in bed
Scleral anicteric
Moist mucous membranes
No JVD
CTA bilateral
Normal S1-S2 no murmurs
Soft nontender nondistended bowel sounds active
No peripheral pitting edema
Left foot dressing in place
Moves extremities spontaneously
AAOx3
Assessment and Plan
Left foot�diabetic foot infection, culture growing MRSA
-Infectious diseases change vancomycin to daptomycin every 48 hours for 6 weeks. Change needed due to renal function progressively getting worse
-PICC line placed already
-Outpatient podiatry follow-up
IVY on CKD stage IIIb
-Baseline Cr around 1.5-1.7
-Possibly intrarenal although unclear as to etiology
-Nonoligouric
-Avoid nephrotoxins and hypotension
-High IgA and C-ANCA
- -Potentially anca mediated process
-Fortunately function slightly improved
-If renal function worsens then may need to continue stress dose steroids
-Now with Manzanares
-Renal diet
Hypertension
-Continue antihypertensive
Urinary retention�presumed chronic
-Now with Manzanares
-Started on flomax
-Ougtpatient Uro follow up
Diabetes
-SSI low
-Accuchecks
-BG 140-180
-CCDiet when able to eat
Original Note:
Today's Communication/Plan
-
Pain management
Monitor hemoglobin
Continue IV daptomycin
Assessment / Plan
Assessment / Plan
Impression:
63-year-old male presents for right foot infection, status post toe amputation, found to have MRSA on IV vancomycin
Plan:
# Diabetic foot infection from MRSA- Left foot
-Given for spontaneously opening and draining left foot wound
-X-ray and MRI demonstrated osteomyelitis
-Lower extremity arterial Doppler normal
-s/p LT foot I & D with bone resection form Lt 4th metatarsal on 07/14
-S/p Left 4th toe amputation on 07/17
-Intraoperative culture growing MRSA
-ID adjusted antibiotics from vancomycin to IV daptomycin every 48 hours. Currently day 1. He will receive 6 weeks of daptomycin total
-Has a PICC line for outpatient IV antibiotics on discharge
#IVY On CKD IIIB
Nephrotic range proteinuria
-Baseline cr 1.5-1.7, peaked at 3.4, currently 3.2
-Spot check showing nephrotic range proteinuria 4.3g/24hr. for 24-hour urine collection has been ordered
-Normal C3/C4 level. BRANDON/MPO negative. PR3 Ab marginally positive 35 (normal 0-19)
-Underwent successful renal biopsy with no bleeding, currently has minimal 3 out of 10 pain
-Increase Tylenol to 1000 every 6 as needed
-manzanares catheter ordered as patient was having on/off retention issues pre-op, will like to address if contributing at this point.
#Metabolic acidosis
-resolved
# Chronic Diastolic HF
-no signs of exacerbation,.
-CXR and exam not consisted with HF
-Monitor volume status
-Cardiology help appreciated, lasix on hold with renal dysfunction
# Type II DM
-Maintain on insulin sliding scale/Accu-Cheks
# Presumed Chronic urinary repletion
-PVR in 200-300 range in general with some time retaining more
-Patient able to void
-manzanares catheter ordered with ongoing renal failure.
# Essential HTN
Continue home anti-hypertensive meds
#Dizziness
-resolved
-Patient had episode of dizziness and noted to be bradycardic. Was straining for bowel movement and may have vasovagal component as well
-Transfer to telemetry and hold Coreg for today can be resumed back based on clinical improvement
-Continue Procardia/hydralazine
# Constipation
-providing oral laxatives, suppos if no BM with oral laxatives
Full code
Heparin subq
2000-calorie diabetic diet
Data:
toe Xray
IMPRESSION:
Postoperative changes of distal fifth metatarsal and phalanx amputation. There is a soft tissue defect along the lateral aspect of the forefoot. There is an erosion along the lateral aspect of the fourth metatarsal head which is new from prior
radiograph in 2021 and may represent osteomyelitis.
Mild degenerative changes of the first MTP.
MRI
IMPRESSION:
Rodney confluent osteomyelitis throughout the entire fourth metatarsal and majority of the fourth digit proximal phalanx. The fourth digit middle and distal phalanges demonstrate osteitis without rodney osteomyelitis.
Osteitis throughout the third digit without rodney osteomyelitis.
Prominent ulceration along the lateral forefoot with underlying fluid tract and phlegmon/soft tissue abscess measuring up to 2.1 x 2.6 x 2.9 cm.
Anticipated Discharge: > 48 hours
Subjective/Interval History
-
Date of Service: July 22, 2024
Patient reports minimal pain after renal biopsy
Hemoglobin remained stable after procedure
Objective Data
-
Labs:
Laboratory Results
07/21/24 07/22/24
22:32 05:39
WBC 7.0
Hgb 8.0 L 8.4 L
Hct 23.6 L 25.9 L
Plt Count 264
Sodium 142
Potassium 4.7
Chloride 106
Carbon Dioxide 24
BUN 60 H
Creatinine 3.2 H
Glucose 95
Calcium 8.7
Vital Signs:
Vital Signs
Temp Pulse Resp BP Pulse Ox
98.1 F 83 16 133/67 96
07/22/24 03:18 07/22/24 03:18 07/22/24 03:18 07/22/24 03:18 07/22/24 03:18
I&O
07/21/24 07/22/24 07/23/24
06:59 06:59 06:59
Intake Total 1440 / 1440 795 / 795
Balance 1440 / 1440 795 / 795
Review of Systems
-
History Source: Patient
Constitutional: Reports No Symptoms
Respiratory: Reports No Symptoms
Cardiac: Reports No Symptoms
Abdomen/GI: Reports No Symptoms
Genitourinary: Reports Flank Pain; Denies Bleeding
Physical Exam
-
General: Well Developed, Well Nourished, No Apparent Distress and Conversant
Respiratory: Clear to Auscultation
Cardiac: Regular Rhythm and S1/S2
GI: Soft, Nontender and Nondistended
Genito-urinary: No Costovertebral Tender and Other (Right-sided renal biopsy site is clean, nonbleeding)
Musculoskeletal: No Edema and Other (Left foot dressing clean)
Skin: Warm and Dry
Neuro: Awake, Alert, Oriented and AO x 3
Psych: Calm and Intact Judgement/Insight
Data Reviewed
-
Labs: Labs Reviewed by me and Discussed with Physician
--- NOTE | 2024-07-22 08:50 | W.PN.POD ---
Today's Communication
Today's Communication
Patient stable from podiatry to D/C, he will f/u in my office for all post op care in 1 wk after discharge
Assessment / Plan
-
A/P : S/P LT foot I & D with 4th metatarsal debridement 07/14
LT 4th toe amputation with primary closure 07/17. POD #5
Left foot cellulitis with abscess - resolved
Left fourth metatarsal osteomyelitis - long-term IV abx per ID
Diabetic neuropathy.
H/o of left foot 5th toe and distal metatarsal bone resection with multiple d�bridements
Poorly controlled diabetic.
Non compliance with using off loading shoes
Plan : Changed surgical dressings, applied compressive dressings
Abx per ID
Patient can ambulate with wedge shoe and walker to bed and bathroom .
Patient needs VN for 1 to 2 wks with twice wkly dressing changes with adaptic, dry gauze, kerlix and Navdeep wrap compression to LT foot every other day
Subjective
Chief Complaint
left foot infected diabetic ulcer and osteomyelitis of the Left 4th toe and metatarsal
Subjective
Patient seen at bedside, doing fine, denies any LT foot or calf pain, no fever, chills, Intact dressingsto LT foot noted.
Objective
Temp Pulse Resp BP Pulse Ox
98.1 F 83 16 133/67 96
07/22/24 03:18 07/22/24 03:18 07/22/24 03:18 07/22/24 03:18 07/22/24 03:18
07/22/24 05:39
07/22/24 05:39
Vital Signs and Lab results were reviewed.
LT foot intact pedal pulses .
Resolved erythema and resolved edema to LT foot
LT foot surgical sites is clean, dry, no bleeding, no drainage, well healing plantar and lateral foot ulcers, lateral foot ulcer site clean, dry, no drainage, no active bleeding , no palpable bone noted.
Lt dorsal foot incision is clean, dry, intact sutures, no drainage, no SOI, no new discoloration or any necrosis noted.
Left 4th toe amputation site is clean, dry, intact sutures, no bleeding.
[2024-07-22] MEDS: TYLENOL 1000 MG PO ×3 (09:14→23:09)
--- NOTE | 2024-07-22 09:32 | CM ---
Addendum entered by Melanie Lind RN 07/23/24 08:11:
Clinicals faxed to outpatient infusion department. ID provided reaction sheet and prescription to infusion department.
Addendum entered by Melanie Lind RN 07/22/24 12:22:
Patient stated 'I can't afford that'. CM discussed possibility of going to SNF, patient adamantly refused.
Addendum entered by Melanie Lind RN 07/22/24 12:16:
Per [facility], patient's cost for medication and supplies will be $245.77 per week. Patient informed.
Addendum entered by Melanie Lind RN 07/22/24 12:15:
Correction: VN needs to be [facility] for PICC line management due to patient having Medicare. Referral sent for [facility] VN for PICC line management and wound care.
Original Note:
Reviewed the chart notes and spoke with the patient at the bedside. Discussed VN and IV infusion agencies. Patient agreeable to VN for wound care and [facility] for IV abx. Referrals sent for both. Waiting for cost analysis for IV abx.
PT/OT to evaluate for possible home needs. CM continues to be available to patient/family and is monitoring medical plan for needs at discharge.
Plan: Discharge to home with VN services and [facility] for IV abx.
[2024-07-22 11:18] LABS: Glucose - Point of Care 137 mg/dl (70-99)
--- NOTE | 2024-07-22 11:44 | W.PN.NEPH.PH ---
Today's Communication / Plan
-
Await renal biopsy report
Follow BMP
Holding JOSE inhibitor and diuretics at this time
Assessment/Plan
-
Impression:
Acute kidney injury
CKD stage IIIb baseline creatinine 1.6
Metabolic acidosis
Edema
Shortness of breath
Left Foot osteomyelitis
HTN
+PR3 Ab
Nephrotic range proteinuria of 5 g
Plan:
follow BMP, creatinine down to 3.2, uop not recorded
s/p renal biopsy on 07/21
Follow-up hemoglobin after biopsy was stable
off RASi and Lasix
vanco levels acceptable, ID changed to daptomycin
previously discussed HD with patient as a possibility, he understands
-
-
Date of Service: July 22, 2024
CC / HPI / ROS
-
Chief Complaint:
IVY, ckd
History of Present Illness:
IVY/Cr at 3.2 BUN down to 60
s/p I&D left foot 07/15
BP high stable
no fever
on abx for LLE osteo: Vancomycin switched to daptomycin on 07/21/2024
Status post renal biopsy on 07/21/2024
Review of Systems:
no cp or sob
no n/v
PVR acceptable
c/o constipation
Labs
-
Labs:
WBC 7.0 10^3/uL (4.8-10.8) 07/22/24 05:39
RBC 3.00 10^6/uL (4.70-6.10) L 07/22/24 05:39
Hgb 8.4 g/dL (13.0-18.0) L 07/22/24 05:39
Hct 25.9 % (39.0-52.0) L 07/22/24 05:39
Plt Count 264 10^3/uL (130-400) 07/22/24 05:39
Sodium 142 mmol/L (135-145) 07/22/24 05:39
Potassium 4.7 mmol/L (3.5-5.1) 07/22/24 05:39
Chloride 106 mmol/L (98-107) 07/22/24 05:39
Carbon Dioxide 24 mmol/L (22-30) 07/22/24 05:39
BUN 60 mg/dl (9-20) H 07/22/24 05:39
Creatinine 3.2 mg/dL (0.7-1.3) H 07/22/24 05:39
eGFR 21.07 07/22/24 05:39
Glucose 95 mg/dl (70-99) 07/22/24 05:39
Calcium 8.7 mg/dl (8.4-10.2) 07/22/24 05:39
Ykd-U-Uepwttakcuo Pept 44760 pg/ml 07/09/24 18:23
Albumin 3.1 g/dl (3.5-5.0) L 07/18/24 06:41
Physical Exam
-
Vital Signs:
Vital Signs
Temp Pulse Resp BP Pulse Ox
98 F 85 16 156/76 95
07/22/24 07:15 07/22/24 07:15 07/22/24 07:15 07/22/24 07:15 07/22/24 07:15
Cardiovascular:: Regular rate and rhythm
Respiratory:: Bilateral: CTA
Lung Excursion:: Normal
Abdomen:: Nontender and Soft
Bowel Sounds:: Normal
Extremity Edema:: None: Bilateral:
--- NOTE | 2024-07-22 14:14 | W.PN.ID1 ---
Date of Service
Date of Service: July 22, 2024
Today's Communication
Continue daptomycin
Assessment / Plan
Severe left foot SSTI with abscess
Left fourth metatarsal osteomyelitis.
- s/p debridement / bx
DM2
Peripheral Neuropathy
Hypertension
CKD III
Anxiety / Depression
Lumbar DDD
Recommendations:
Changed to daptomycin yesterday.
CM working on outpatient IV abx (home vs [facility])
-Picc line in place
-Script for IV abx given to protective services case worker yesterday
����������������������������������������������������������
Chief Complaint
-: Other (Left foot infection / osteomyelitis)
Subjective / Review of Systems
Review of Systems: No Fever and No Chills
Vital Signs / Physical Exam
Vital Signs
Vital Signs
Temp Pulse Resp BP Pulse Ox
97.9 F 75 16 128/67 95
07/22/24 11:46 07/22/24 11:46 07/22/24 11:46 07/22/24 11:46 07/22/24 11:46
Physical Exam
Constitutional: No Acute Distress, Comfortable, Chronically Ill and Non-toxic
Head: Normocephalic
Eyes: Sclera Anicteric
Pulmonary: Clear and Non Labored
Gastrointestinal: Soft, Non Tender and Non Distended
Skin: Warm and Dry
Wound: Other (left foot dressing clean, dry, intact. No erythema up leg.)
Neurological: Awake, Alert and Oriented
Objective Data
Lab Data
Lab Results
07/22/24 05:39
07/22/24 05:39
ESR 93 mm/hour (0-20) H 07/09/24 18:23
PT 14.1 Sec (11.4-14.6) 07/21/24 05:04
INR 1.11 07/21/24 05:04
Estimated Creat Clear 28 ml/min 07/22/24 05:39
Lactic Acid 0.5 mmol/L (0.7-2.0) L 07/09/24 19:38
Total Bilirubin 0.4 mg/dl (0.2-1.3) 07/18/24 06:41
AST 18 U/L (17-59) 07/18/24 06:41
ALT 20 U/L (0-50) 07/18/24 06:41
Alkaline Phosphatase 143 U/L (38-126) H 07/18/24 06:41
C-Reactive Protein 63.10 mg/L (0.0-10.00) H 07/09/24 18:23
Most recent labs reviewed.
Micro Results:
07/17/24 14:30 Wound Culture - Final
Foot - Left Staph aureus MRSA
Gram Stain - Final
07/17/24 14:30 Anaerobic Culture - Final
Foot - Left NO ANAEROBES ISOLATED
07/14/24 11:53 Tissue Culture - Final
Foot - Left Staph aureus MRSA
Gram Stain - Final
07/14/24 11:53 Wound Culture - Final
Foot - Left Staph aureus MRSA
Gram Stain - Final
07/14/24 11:53 Anaerobic Culture - Final
Foot - Left NO ANAEROBES ISOLATED
07/09/24 19:38 Blood Culture - Final
Blood/Venous No Growth - Final Report
07/09/24 19:38 Blood Culture - Final
Blood/Venous No Growth - Final Report
07/09/24 18:23 Wound Culture - Final
Foot - Left Staph aureus MRSA
Gram Stain - Final
07/10/24 00:02 MRSA Screen - Final
Nose No Methicillin Resistant Staphylococcus aureus isolated.
07/09/24 18:23 Influenza Types A & B (LAURA) - Final
Nasal Swab Negative for Influenza A & B, NAAT
Negative results must be combined with clinical observations
and patient history.
Nucleic Acid Amplification test (NAAT)performed on the
[employer] platform.
Imaging:
07/10/2024 MRI left lower extremity: Rodney confluent osteomyelitis throughout the entire fourth metatarsal and majority of the fourth digit proximal phalanx. The fourth digit middle and distal phalanges demonstrate osteitis without rodney
osteomyelitis. There is a prominent ulceration along the lateral forefoot with underlying fluid tract and phlegmon/soft tissue abscess measuring up to 2.1 x 2.6 x 2.9 cm.
07/09/2024 X-ray left foot: There are postoperative changes of the distal fifth metatarsal and fifth toe amputation. A small soft tissue defect along the lateral aspect of the forefoot is noted. There is erosion of the fourth metatarsal head.
Mild degenerative changes of the first metatarsal phalangeal joint noted. There are likely hammertoe deformities. Erosions along the lateral aspect of the fourth metatarsal head are new from prior radiographs from 2021 and may represent
osteomyelitis. Please see full dictation for additional detail.
Pathology:
07/21/2024 Renal bx : pending
07/17/2024 Left 4th toe : pending
Care Review
Plan reviewed with: Nurse, Physician (Resident) and Other (CM)
[2024-07-22] MEDS: ATIVAN 0.5 MG PO ×2 (14:18→22:08)
[2024-07-22 16:48] LABS: Glucose - Point of Care 123 mg/dl (70-99)
[2024-07-22 22:15] LABS: Glucose - Point of Care 124 mg/dl (70-99)
[2024-07-23] MEDS: APRESOLINE 10 MG IV (02:47)
[2024-07-23 03:17] VITALS: BP 163/79
[2024-07-23 05:19] LABS: Hematocrit 24.1 % (39.0-52.0); Hemoglobin 8.1 g/dL (13.0-18.0); Mean Corp Hgb Conc. 33.6 g/dL (33.0-37.0); Mean Corpuscular Hgb 28.8 pg (27.0-31.0); Mean Corpuscular Volume 85.8 fL (80.0-94.0); Mean Platelet Volume 9.6 fL (7.4-10.4); Platelet Count 208 10^3/uL (130-400); Red Blood Cell Count 2.81 10^6/uL (4.70-6.10); Red Cell Dist. Width 15.1 % (11.5-14.5); White Blood Cell Count 6.3 10^3/uL (4.8-10.8)
[2024-07-23 05:35] LABS: Blood Urea Nitrogen 57 mg/dl (9-20); Calcium 8.4 mg/dl (8.4-10.2); Carbon Dioxide 22 mmol/L (22-30); Chloride 108 mmol/L (98-107); Estimated Creatinine Clearance 31 ml/min; Glucose 102 mg/dl (70-99); Potassium 4.5 mmol/L (3.5-5.1); Sodium 144 mmol/L (135-145); eGFR 23.72
[2024-07-23 06:00] VITALS: BMI 23.0
[2024-07-23 07:25] VITALS: BP 144/65
[2024-07-23 07:32] LABS: Glucose - Point of Care 120 mg/dl (70-99)
[2024-07-23] MEDS: NOVOLOG FLEXPEN-LOW RESISTANCE SC ×2 (07:36→11:38)
[2024-07-23] MEDS: DUPHALAC/CHRONULAC PO (08:12)
[2024-07-23] MEDS: PROCARDIA XL (EXTENDED RELEASE) 30 MG PO (08:13)
[2024-07-23] MEDS: WELLBUTRIN SR (12 hour sustained release) 150 MG PO (08:13)
[2024-07-23] MEDS: FLOMAX 0.4 MG PO (08:13)
[2024-07-23] MEDS: VISBIOME 1 CAP PO (08:13)
--- NOTE | 2024-07-23 09:54 | W.PN.ID1 ---
Date of Service
Date of Service: July 23, 2024
Today's Communication
Continue antibiotics.
Assessment / Plan
Severe left foot SSTI with abscess
Left fourth metatarsal osteomyelitis.
- s/p debridement / bx
DM2
Peripheral Neuropathy
Hypertension
IVY on CKD III
Anxiety / Depression
Lumbar DDD
Recommendations:
Continue with daptomycin 800 mg IV every 48 hours
Current EST CrCl ~31.
---> If remains stable at this level, will adjust dosing to every 24 hours.
Order sheets have been submitted to [facility].
Picc line in place
����������������������������������������������������������
Chief Complaint
-: Other (Left foot infection / fourth metatarsal osteomyelitis)
Subjective / Review of Systems
Review of Systems: No Fever and No Chills
Vital Signs / Physical Exam
Vital Signs
Vital Signs
Temp Pulse Resp BP Pulse Ox
97.6 F 86 18 144/65 97
07/23/24 07:25 07/23/24 07:25 07/23/24 07:25 07/23/24 07:25 07/23/24 07:25
Physical Exam
Constitutional: No Acute Distress, Comfortable, Chronically Ill and Non-toxic
Head: Normocephalic
Eyes: Sclera Anicteric
Cardiovascular: S1/S2; Negative S3/S4
Pulmonary: Clear and Non Labored
Gastrointestinal: Soft, Non Tender and Non Distended
Skin: Warm and Dry
Wound: Other (left foot with sutures in place on the dorsal surface. Incisional wound well-approximated. No open areas. No drainage. No periwound erythema)
Neurological: Awake, Alert and Oriented
Lines: PICC (Right upper extremity; no exit site erythema)
Objective Data
Lab Data
Lab Results
07/23/24 04:45
07/23/24 04:45
ESR 93 mm/hour (0-20) H 07/09/24 18:23
PT 14.1 Sec (11.4-14.6) 07/21/24 05:04
INR 1.11 07/21/24 05:04
Estimated Creat Clear 31 ml/min 07/23/24 04:45
Lactic Acid 0.5 mmol/L (0.7-2.0) L 07/09/24 19:38
Total Bilirubin 0.4 mg/dl (0.2-1.3) 07/18/24 06:41
AST 18 U/L (17-59) 07/18/24 06:41
ALT 20 U/L (0-50) 07/18/24 06:41
Alkaline Phosphatase 143 U/L (38-126) H 07/18/24 06:41
C-Reactive Protein 63.10 mg/L (0.0-10.00) H 07/09/24 18:23
Most recent labs reviewed.
Micro Results:
07/17/24 14:30 Wound Culture - Final
Foot - Left Staph aureus MRSA
Gram Stain - Final
07/17/24 14:30 Anaerobic Culture - Final
Foot - Left NO ANAEROBES ISOLATED
07/14/24 11:53 Tissue Culture - Final
Foot - Left Staph aureus MRSA
Gram Stain - Final
07/14/24 11:53 Wound Culture - Final
Foot - Left Staph aureus MRSA
Gram Stain - Final
07/14/24 11:53 Anaerobic Culture - Final
Foot - Left NO ANAEROBES ISOLATED
07/09/24 19:38 Blood Culture - Final
Blood/Venous No Growth - Final Report
07/09/24 19:38 Blood Culture - Final
Blood/Venous No Growth - Final Report
07/09/24 18:23 Wound Culture - Final
Foot - Left Staph aureus MRSA
Gram Stain - Final
07/10/24 00:02 MRSA Screen - Final
Nose No Methicillin Resistant Staphylococcus aureus isolated.
07/09/24 18:23 Influenza Types A & B (LAURA) - Final
Nasal Swab Negative for Influenza A & B, NAAT
Negative results must be combined with clinical observations
and patient history.
Nucleic Acid Amplification test (NAAT)performed on the
[employer] platform.
Imaging:
07/10/2024 MRI left lower extremity: Oiv confluent osteomyelitis throughout the entire fourth metatarsal and majority of the fourth digit proximal phalanx. The fourth digit middle and distal phalanges demonstrate osteitis without ovi
osteomyelitis. There is a prominent ulceration along the lateral forefoot with underlying fluid tract and phlegmon/soft tissue abscess measuring up to 2.1 x 2.6 x 2.9 cm.
07/09/2024 X-ray left foot: There are postoperative changes of the distal fifth metatarsal and fifth toe amputation. A small soft tissue defect along the lateral aspect of the forefoot is noted. There is erosion of the fourth metatarsal head.
Mild degenerative changes of the first metatarsal phalangeal joint noted. There are likely hammertoe deformities. Erosions along the lateral aspect of the fourth metatarsal head are new from prior radiographs from 2021 and may represent
osteomyelitis. Please see full dictation for additional detail.
Pathology:
07/21/2024 Renal bx : pending
07/17/2024 Left 4th toe : pending
--- NOTE | 2024-07-23 10:24 | W.PN.NEPH.PH ---
Today's Communication / Plan
-
dc planning
Assessment/Plan
-
Impression:
Acute kidney injury
CKD stage IIIb baseline creatinine 1.6
Metabolic acidosis
Edema
Shortness of breath
Left Foot osteomyelitis
HTN
+PR3 Ab
Nephrotic range proteinuria of 5 g
Plan:
follow BMP,
s/p renal biopsy on 07/21
off RASi and Lasix
OP daptomycin arrangements
if dc we will call for f/u
-
-
Date of Service: July 23, 2024
CC / HPI / ROS
-
Chief Complaint:
IVY, ckd
History of Present Illness:
IVY/Cr down to 2.9
s/p I&D left foot 07/15
BP high stable
no fever
on abx for LLE osteo: Vancomycin switched to daptomycin on 07/21/2024
Status post renal biopsy on 07/21/2024
Review of Systems:
no cp or sob
no n/v
Labs
-
Labs:
WBC 6.3 10^3/uL (4.8-10.8) 07/23/24 04:45
RBC 2.81 10^6/uL (4.70-6.10) L 07/23/24 04:45
Hgb 8.1 g/dL (13.0-18.0) L 07/23/24 04:45
Hct 24.1 % (39.0-52.0) L 07/23/24 04:45
Plt Count 208 10^3/uL (130-400) D 07/23/24 04:45
Sodium 144 mmol/L (135-145) 07/23/24 04:45
Potassium 4.5 mmol/L (3.5-5.1) 07/23/24 04:45
Chloride 108 mmol/L (98-107) H 07/23/24 04:45
Carbon Dioxide 22 mmol/L (22-30) 07/23/24 04:45
BUN 57 mg/dl (9-20) H 07/23/24 04:45
Creatinine 2.9 mg/dL (0.7-1.3) H 07/23/24 04:45
eGFR 23.72 07/23/24 04:45
Glucose 102 mg/dl (70-99) H 07/23/24 04:45
Calcium 8.4 mg/dl (8.4-10.2) 07/23/24 04:45
Pvs-I-Hqgxvywuory Pept 33714 pg/ml 07/09/24 18:23
Albumin 3.1 g/dl (3.5-5.0) L 07/18/24 06:41
Physical Exam
-
Vital Signs:
Vital Signs
Temp Pulse Resp BP Pulse Ox
97.6 F 86 18 144/65 97
07/23/24 07:25 07/23/24 07:25 07/23/24 07:25 07/23/24 07:25 07/23/24 07:25
Cardiovascular:: Regular rate and rhythm
Respiratory:: Bilateral: CTA
Lung Excursion:: Normal
Abdomen:: Nontender and Soft
Bowel Sounds:: Normal
Extremity Edema:: None: Bilateral:
--- NOTE | 2024-07-23 11:06 | W.PN.HOSP.TC ---
Addendum entered and electronically signed by Sean Segal MD 07/23/24 11:26:
Imaging
CXR
IMPRESSION:
No acute cardiopulmonary abnormality.
Toe Xray
IMPRESSION:
Postoperative changes of distal fifth metatarsal and phalanx amputation. There is a soft tissue defect along the lateral aspect of the forefoot. There is an erosion along the lateral aspect of the fourth metatarsal head which is new from prior
radiograph in 2021 and may represent osteomyelitis.
Mild degenerative changes of the first MTP.
Likely hammertoe deformities.
2d echo
CONCLUSIONS
1. Mild concentric LVH with EF 60-65%
2. Mild RVE
3. LAE
4. No evidence of significant valvular disease
MRI
IMPRESSION:
Rodney confluent osteomyelitis throughout the entire fourth metatarsal and majority of the fourth digit proximal phalanx. The fourth digit middle and distal phalanges demonstrate osteitis without rodney osteomyelitis.
Osteitis throughout the third digit without rodney osteomyelitis.
Prominent ulceration along the lateral forefoot with underlying fluid tract and phlegmon/soft tissue abscess measuring up to 2.1 x 2.6 x 2.9 cm.
Renal Ultrasound
IMPRESSION:
Nonobstructing right renal calculus. No hydronephrosis, bilaterally. Bilateral renal cysts. Significant postvoid bladder residual.
TALIA
IMPRESSION: Normal ankle brachial indices on each side, and normal waveforms. No focal arterial stenosis demonstrated on either side.
Foot xray
IMPRESSION:
1. Destruction of the distal aspect of the fourth metatarsal and proximal aspect of the proximal phalanx of the fourth digit, with soft tissue gas. Findings are likely related to osteomyelitis and/or postoperative change.
2. Prior amputation of the fifth phalanx and distal aspect of the fifth metatarsal.
CXR
IMPRESSION:
Right upper partially PICC with catheter tip projecting over the superior vena cava.
Minimal bibasilar atelectasis.
Physical Exam
NAD, resting comfortably in bed
Scleral anicteric
Moist mucous membranes
No JVD
CTA bilateral
Normal S1-S2 no murmurs
Soft nontender nondistended bowel sounds active
No peripheral pitting edema
Left foot dressing in place
Moves extremities spontaneously
AAOx3
Assessment and Plan
Left foot�diabetic foot infection, culture growing MRSA
-Infectious diseases change vancomycin to daptomycin every 48 hours for 6 weeks. Change needed due to renal function progressively getting worse
-PICC line placed already
-Outpatient podiatry follow-up
IVY on CKD stage IIIb
-improved 2.9 tooday aftger peak of 3.4
-Baseline Cr around 1.5-1.7
-Possibly intrarenal although unclear as to etiology
-Nonoligouric
-Avoid nephrotoxins and hypotension
-High IgA and C-ANCA
- -Potentially anca mediated process
-Fortunately function slightly improved
-If renal function worsens then may need to continue stress dose steroids
-Now with Manzanares
-Renal diet
Hypertension
-Continue antihypertensive
Urinary retention�presumed chronic
-Now with Manzanares
-Started on flomax
-Ougtpatient Uro follow up
Diabetes
-SSI low
-Accuchecks
-BG 140-180
-CCDiet when able to eat
I spoke with Nephrology. They are okay with discharge from a renal stand point as renal function improving. There office will give him a call to follow up as an outpatient to review bx results and will divineley need to see rheumatology after that
Original Note:
Today's Communication/Plan
-
Discharge with IV antibiotics prescription and nephrology follow-up
Assessment / Plan
Assessment / Plan
Impression:
63-year-old male presents for right foot infection, status post toe amputation, found to have MRSA on IV vancomycin
Plan:
# Diabetic foot infection from MRSA- Left foot
-Given for spontaneously opening and draining left foot wound
-X-ray and MRI demonstrated osteomyelitis
-Lower extremity arterial Doppler normal
-s/p LT foot I & D with bone resection form Lt 4th metatarsal on 07/14
-S/p Left 4th toe amputation on 07/17
-Intraoperative culture growing MRSA
-[facility] adjusted antibiotics from vancomycin to IV daptomycin every 48 hours. Currently day 3. He will receive 6 weeks of daptomycin total
-Has a PICC line for outpatient IV antibiotics on discharge
#IVY On CKD IIIB
Nephrotic range proteinuria
-Baseline cr 1.5-1.7, peaked at 3.4, currently 2.9
-Creatinine is downtrending and patient endorses wanting to leave, will discharge home and have follow-up with nephrology
-Spot check showing nephrotic range proteinuria 4.3g/24hr. for 24-hour urine collection has been ordered
-Normal C3/C4 level. BRANDON/MPO negative. PR3 Ab marginally positive 35 (normal 0-19)
-Underwent successful renal biopsy with no bleeding, currently has minimal 3 out of 10 pain
-Tylenol to 1000 every 6 as needed
-manzanares catheter ordered as patient was having on/off retention issues pre-op, will like to address if contributing at this point.
#Metabolic acidosis
-resolved
# Chronic Diastolic HF
-no signs of exacerbation,.
-CXR and exam not consisted with HF
-Monitor volume status
-Cardiology help appreciated, lasix on hold with renal dysfunction
# Type II DM
-Maintain on insulin sliding scale/Accu-Cheks
# Presumed Chronic urinary repletion
-PVR in 200-300 range in general with some time retaining more
-Patient able to void
-manzanares catheter ordered with ongoing renal failure.
# Essential HTN
Continue home anti-hypertensive meds
#Dizziness
-resolved
-Patient had episode of dizziness and noted to be bradycardic. Was straining for bowel movement and may have vasovagal component as well
-Discontinue telemetry
-Continue Procardia/hydralazine
# Constipation
-providing oral laxatives, suppos if no BM with oral laxatives
Full code
Heparin subq
2000-calorie diabetic diet
Data:
toe Xray
IMPRESSION:
Postoperative changes of distal fifth metatarsal and phalanx amputation. There is a soft tissue defect along the lateral aspect of the forefoot. There is an erosion along the lateral aspect of the fourth metatarsal head which is new from prior
radiograph in 2021 and may represent osteomyelitis.
Mild degenerative changes of the first MTP.
MRI
IMPRESSION:
Rodney confluent osteomyelitis throughout the entire fourth metatarsal and majority of the fourth digit proximal phalanx. The fourth digit middle and distal phalanges demonstrate osteitis without rodney osteomyelitis.
Osteitis throughout the third digit without rodney osteomyelitis.
Prominent ulceration along the lateral forefoot with underlying fluid tract and phlegmon/soft tissue abscess measuring up to 2.1 x 2.6 x 2.9 cm.
Anticipated Discharge: Today
Subjective/Interval History
-
Date of Service: July 23, 2024
No acute events overnight
Objective Data
-
Labs:
Laboratory Results
07/23/24
04:45
WBC 6.3
Hgb 8.1 L
Hct 24.1 L
Plt Count 208 D
Sodium 144
Potassium 4.5
Chloride 108 H
Carbon Dioxide 22
BUN 57 H
Creatinine 2.9 H
Glucose 102 H
Calcium 8.4
Vital Signs:
Vital Signs
Temp Pulse Resp BP Pulse Ox
97.6 F 86 18 144/65 97
07/23/24 07:25 07/23/24 07:25 07/23/24 07:25 07/23/24 07:25 07/23/24 07:25
I&O
07/22/24 07/23/24 07/24/24
06:59 06:59 06:59
Intake Total 795 / 795 1420 / 1420
Balance 795 / 795 1420 / 1420
Review of Systems
-
History Source: Patient
Constitutional: Reports No Symptoms
Respiratory: Reports No Symptoms
Cardiac: Reports No Symptoms
Abdomen/GI: Reports No Symptoms
Genitourinary: Reports No Symptoms
Physical Exam
-
General: Well Developed, Well Nourished, No Apparent Distress and Conversant
Respiratory: Clear to Auscultation
Cardiac: Regular Rhythm and S1/S2
GI: Soft, Nontender and Nondistended
Musculoskeletal: No Edema
Skin: Warm and Dry
Neuro: Awake, Alert, Oriented and AO x 3
Psych: Calm and Intact Judgement/Insight
Data Reviewed
-
Labs: Labs Reviewed by me and Discussed with Physician
[2024-07-23 11:36] LABS: Glucose - Point of Care 131 mg/dl (70-99)
--- NOTE | 2024-07-23 12:07 | CM ---
Addendum entered by Liliana Gaitan 07/23/24 12:56:
IMM explained & signed. In chart
Original Note:
Patient seen at bedside.
[facility] for wound care - updated referral in [facility]. Spoke with Nancy Jain at [facility] [phone]
Patient will go to outpatient infusion for IV antibiotic d/t cost. Daptomycin 800 mg IV every 48 hours.
Patient to be discharged after dose today.
Spoke with Chitra [phone] at the Outpatient Infusion center (states they have reaction form/script from [facility]) - Patient has an appt on Wednesday 07/25 at 10am
This information given to patient. States his son or brother will transport.
PLAN: Discharge to home with [facility] for wound care.
Patient to return to outpatient infusion for his IV Daptomycin 800 mg IV every 48 hours.
Son or brother to transport.
[facility]
Fax #: [phone]
--- NOTE | 2024-07-23 13:39 | W.DCSUMMARY ---
Discharge Summary
Discharge Data
Date of Admission: 07/09/24
Date of Discharge: 07/23/24
-
Pending Results: Yes
Additional Pending Results:
Renal biopsy results
Hospital Course
Principal Discharge diagnosis : Left fourth metatarsal osteomyelitis
Chronic Discharge diagnosis : Insulin-dependent diabetes mellitus, chronic kidney disease stage IIIb, metabolic acidosis, chronic diastolic heart failure, chronic urinary cough chronic urinary retention, essential hypertension, constipation,
dizziness
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 He has prior history of osteomyelitis and left fifth toe status post amputation 2 years prior. He
had been receiving debridements from podiatry, however had couple days intermittent purulent discharge material from the site. Toe x-ray in the ED demonstrated findings concerning for osteomyelitis, MRI of the foot was ordered, which confirmed the
diagnosis, wound culture, blood cultures were collected patient was started on vancomycin and Zosyn, podiatry and infectious disease were consulted and patient was admitted. On presentation he was also noted to have a metabolic acidosis with
elevated creatinine, nephrology was consulted for management of acidosis and acute on chronic kidney disease. The patient developed an IVY on vancomycin and Zosyn was renally dosed and he received p.o. bicarb to treat his metabolic acidosis. He
was noted to have mild hematuria and nephrotic range proteinuria. Throughout his stay his creatinine began uptrending, it plateaued at 3.4 and began downtrending. Creatinine was 2.9 on discharge with a baseline of approximately 2. He was worked
up for this, he was positive for VT-3 antibodies. Eventually he was taken for a renal biopsy by IR. At the time of discharge the results are currently pending and he will follow-up with nephrology after discharge for results and management based
on the results. Patient was taken to the operating room for left foot incision and drainage with bone resection of left fourth metatarsal on 07/14/2024 he was taken back a second time to the OR on 07/17/2024 for a left fourth toe amputation.
Cultures were drawn at this time which grew MRSA. Patient was continued on vancomycin and eventually he was transitioned to IV daptomycin every 48 hours. He received 2 doses, 3 days worth of IV daptomycin while inpatient. A PICC line was placed
so that he can resume IV antibiotics on discharge. Infectious disease planned on giving him 6 weeks total of daptomycin. Patient will follow-up at infusion center for his daptomycin treatments. Cardiology was consulted as patient also has chronic
diastolic heart failure, he had no signs of exacerbation on imaging or clinical exam. During his stay we held Lasix due to his renal dysfunction. Patient also had a episode of dizziness, was found to be bradycardic while straining for a bowel
movement he was placed on telemetry, this did not recur and it was assumed to be vasovagal in nature. Patient was discharged home and he will follow-up with his primary care physician within 1 week of discharge. He will also follow-up with
nephrology in 1 to 2 weeks for results of his kidney biopsy and management of potential vasculitis. Patient will also follow-up with podiatry in 1 week of discharge for follow-up on his left foot amputations. Patient was also given referral for
rheumatology in case a vasculitis is discovered on renal biopsy. Patient was discharged home and will follow-up with specialist and receive outpatient intravenous antibiotic infusions for total of 6 weeks.
Important imaging findings :
07/09/2024 chest x-ray, impression:
No acute cardiopulmonary abnormality.
07/09/2024 toe x-ray, impression:
Postoperative changes of distal fifth metatarsal and phalanx amputation. There is a soft tissue defect along the lateral aspect of the forefoot. There is an erosion along the lateral aspect of the fourth metatarsal head which is new from prior
radiograph in 2021 and may represent osteomyelitis.
Mild degenerative changes of the first MTP.
Likely hammertoe deformities
07/10/2024 lower extremity MRI, impression:
Rodney confluent osteomyelitis throughout the entire fourth metatarsal and majority of the fourth digit proximal phalanx. The fourth digit middle and distal phalanges demonstrate osteitis without rodney osteomyelitis.
Osteitis throughout the third digit without rodney osteomyelitis.
Prominent ulceration along the lateral forefoot with underlying fluid tract and phlegmon/soft tissue abscess measuring up to 2.1 x 2.6 x 2.9 cm.
07/10/2024 renal ultrasound, impression:
Nonobstructing right renal calculus. No hydronephrosis, bilaterally. Bilateral renal cysts. Significant postvoid bladder residual.
07/10/2024 peripheral arterial ultrasound, impression:
Normal ankle brachial indices on each side, and normal waveforms. No focal arterial stenosis demonstrated on either side.
07/14/2024 foot x-ray, impression:
1. Destruction of the distal aspect of the fourth metatarsal and proximal aspect of the proximal phalanx of the fourth digit, with soft tissue gas. Findings are likely related to osteomyelitis and/or postoperative change.
2. Prior amputation of the fifth phalanx and distal aspect of the fifth metatarsal.
07/18/2024 chest x-ray, impression:
Right upper partially PICC with catheter tip projecting over the superior vena cava.
Minimal bibasilar atelectasis.
Procedure findings :
07/14/2024 left foot incision and drainage with bone resection fourth metatarsal
07/17/2024 left fourth toe amputation
07/18/2024 PICC line insertion
07/21/2024 renal biopsy
Discharge Plan
-
Patient Disposition: Home (Routine Discharge)
Discharge Diagnosis/Procedures: Left foot fourth metatarsal osteomyelitis
Condition: Good
Diet: No restrictions
Activity: As tolerated
Driving Restrictions: As prior to admission
Bathing Restrictions: None
Wound Care: reinforce dressing with santino if bleeding and needed, Please change Left foot dressings with adaptic and dry gauze, kerlix and jim wrap compression once daily
Activity Restrictions/Additional Instructions:
Please follow-up with your primary care physician in less than 1 week of discharge
Please follow-up with podiatry 1 week of discharge
Please follow-up with nephrology in 1 to 2 weeks of discharge to review your biopsy results and develop a definitive plan
Rheumatology referral if needed
Flush PICC at time of discharge. Will get further flushes at outpatient infusion center.
Referrals:
Gino Pascual DO [Active] - in one to two weeks (Follow-up on renal biopsy)
Esteban Lindquist MD [Active] -
Nik Dumont MD [Family Provider] - in less than 1 week
Corrine Valenzuela DPM [Specified Professional Personl] - in one week
Additional Discharge Medication Instructions: Continue IV daptomycin infusions outpatient for a total of 6 weeks
Prescriptions:
New
DAPTOmycin [Cubicin] 800 MG
Syringe [Syringe-Pump] 0 ML
As Directed mls/hr IV Q48H
Reason for use: Infection
Ordered By: Rafa Bee DO, Resident
Last Taken: 07/23/24 14:06 16 mls
Continued
acetaminophen 500 mg Tablet
500 mg PO Q6HPRN PRN (Reason: mild pain)
Visbiome 112.5 billion cell Capsule
1 cap PO DAILY
lorazepam 1 mg tablet
1 mg PO TID
bupropion HCl [Wellbutrin SR] 150 mg Tablet Sustained-Release 12 Hr
150 mg PO BID
carvedilol 3.125 mg Tablet
3.125 mg PO BID
gabapentin 300 mg Capsule
300 mg PO BID
albuterol sulfate 90 mcg/actuation Hfa Aerosol Inhaler
2 puff INHALATION R Q6HPRN PRN (Reason: sob)
lisinopril 40 mg Tablet
40 mg PO DAILY
insulin lispro protamin-lispro [Humalog Mix 75-25 KwikPen] 100 unit/mL (75-25) insulin pen
0 unit SC BID
Patient Comments:
07/09/24: Sliding scale dependent on blood sugar.
Discharge Orders:
Discharge Patient (As Directed); Ordered 07/23/24
Ordered By: Rafa Bee
Discharge Date and Time
Print Language: [place]
[2024-07-23] MEDS: CUBICIN 16 MG IV (14:06)
[2024-07-23 14:15] VITALS: BP 152/73
== END 2024-07-23 15:01 | disposition home health service (06) | DRG 617 ==
LOC: 2 NORTH 21:55
PROVIDERS: Internal Medicine; Internal Medicine Cardiovascular Disease; Nurse Practitioner Family; Physician Assistant; Radiology Diagnostic Radiology; Radiology Neuroradiology; Radiology Vascular & Interventional Radiology; Specialist; Student in an Organized Health Care Education/Training Program; ADMITTING PHYSICIAN Hospitalist; ATTENDING PHYSICIAN Hospitalist; CONSULT PHYSICIAN Internal Medicine Cardiovascular Disease; CONSULT PHYSICIAN Internal Medicine Infectious Disease; CONSULT PHYSICIAN Specialist; EMERGENCY PHYSICIAN Emergency Medicine; FAMILY PHYSICIAN Internal Medicine; OTHER PHYSICIAN Podiatrist Foot & Ankle Surgery
PROC: 0QBP0ZZ Excision of Left Metatarsal, Open Approach (ICD-10-PCS; 2024-07-14)
PROC: 0J9R0ZX Drainage of Left Foot Subcutaneous Tissue and Fascia, Open Approach, Diagnostic (ICD-10-PCS; 2024-07-14)
PROC: 0Y6W0Z1 Detachment at Left 4th Toe, High, Open Approach (ICD-10-PCS; 2024-07-17)
PROC: 02HV33Z Insertion of Infusion Device into Superior Vena Cava, Percutaneous Approach (ICD-10-PCS; 2024-07-18)
PROC: 0TB03ZX Excision of Right Kidney, Percutaneous Approach, Diagnostic (ICD-10-PCS; 2024-07-21)
DX: E11.69 Type 2 diabetes mellitus with other specified complication (principal); E87.20 Acidosis, unspecified; I13.0 Hypertensive heart and chronic kidney disease with heart failure and stage 1 through stage 4 chronic kidney disease, or unspecified chronic kidney disease; M86.172 Other acute osteomyelitis, left ankle and foot; L03.116 Cellulitis of left lower limb; L02.612 Cutaneous abscess of left foot; I50.32 Chronic diastolic (congestive) heart failure; J98.11 Atelectasis; E11.621 Type 2 diabetes mellitus with foot ulcer; L97.529 Non-pressure chronic ulcer of other part of left foot with unspecified severity; B95.62 Methicillin resistant Staphylococcus aureus infection as the cause of diseases classified elsewhere; M20.42 Other hammer toe(s) (acquired), left foot; E11.40 Type 2 diabetes mellitus with diabetic neuropathy, unspecified; N17.9 Acute kidney failure, unspecified; E11.22 Type 2 diabetes mellitus with diabetic chronic kidney disease; F41.9 Anxiety disorder, unspecified; N18.32 Chronic kidney disease, stage 3b; D64.9 Anemia, unspecified; F32.A Depression, unspecified; K21.9 Gastro-esophageal reflux disease without esophagitis; M51.369 Other intervertebral disc degeneration, lumbar region without mention of lumbar back pain or lower extremity pain; K59.00 Constipation, unspecified; R42 Dizziness and giddiness; R80.9 Proteinuria, unspecified; Z79.4 Long term (current) use of insulin; Z11.52 Encounter for screening for COVID-19; Z91.199 Patient's noncompliance with other medical treatment and regimen due to unspecified reason
CPT/HCPCS: 88305; 88311; 50200; 71045; 71046; 73630; 73660; 73720; 76770; 76942; 80048; 80053; 80202; 81003; 81015; 81050; 82550; 82570; 82728; 82784; 82962; 83036; 83516; 83521; 83540; 83550; 83605; 83880; 84155; 84156; 84165; 84484; 85014; 85018; 85025; 85027; 85610; 85652; 86038; 86063; 86140; 86160; 86334; 86335; 86706; 86803; 87040; 87070; 87075; 87147; 87176; 87186; 87205; 87340; 87502; 87811; 93005; 93306; 93922; 93925; 96365; 96375; 97116; 97163; 97166; 99152; 99153; 99285; A9575; J0878; J2916

== ENCOUNTER 2024-07-31 17:40 | Inpatient (IN) | payer MEDICARE, OTHER, SELFPAY ==
[2024-07-31] VITALS (11 sets, daily range): BP systolic 140–167; BP diastolic 64–96; BMI 23.0; BMI 24.8
[2024-07-31 13:08] LABS: % Basophils 0.6 % (0-2); % Eosinophils 5.6 % (0-6); % Immature Granulocytes 0.4 % (0-0.5); % Lymphocytes 12.6 % (20.5-51.1); % Monocytes 10.3 % (1.7-9.3); % Neutrophils 70.5 % (42.2-75.2); Absolute Eosinophils 0.3 10^3/uL (0-0.7); Absolute Lymphocytes 0.7 10^3/uL (1.2-3.4); Absolute Monocytes 0.6 10^3/uL (0.1-0.6); Absolute Neutrophils 3.8 10^3/uL (1.4-6.5); Hematocrit 22.9 % (39.0-52.0); Hemoglobin 7.5 g/dL (13.0-18.0); Mean Corp Hgb Conc. 32.8 g/dL (33.0-37.0); Mean Corpuscular Hgb 28.6 pg (27.0-31.0); Mean Corpuscular Volume 87.4 fL (80.0-94.0); Mean Platelet Volume 9.7 fL (7.4-10.4); Nucleated Red Blood Cells % 0 % (-); Platelet Count 183 10^3/uL (130-400); Red Blood Cell Count 2.62 10^6/uL (4.70-6.10); Red Cell Dist. Width 15.9 % (11.5-14.5); White Blood Cell Count 5.3 10^3/uL (4.8-10.8)
[2024-07-31 13:25] LABS: ALT (SGPT) 38 U/L (0-50); AST (SGOT) 24 U/L (17-59); Albumin 3.4 g/dl (3.5-5.0); Alkaline Phosphatase 203 U/L (38-126); Blood Urea Nitrogen 68 mg/dl (9-20); Calcium 8.7 mg/dl (8.4-10.2); Carbon Dioxide 15 mmol/L (22-30); Chloride 114 mmol/L (98-107); Estimated Creatinine Clearance 31 ml/min; Glucose 108 mg/dl (70-99); Potassium 5.2 mmol/L (3.5-5.1); Sodium 144 mmol/L (135-145); Total Bilirubin 0.5 mg/dl (0.2-1.3); Total Protein 6.6 g/dl (6.3-8.2); eGFR 23.72
--- NOTE | 2024-07-31 14:07 | ED.GENMED ---
History of Present Illness
General
Chief Complaint: Abnormal Lab Value
Source: patient
Exam Limitations: none
Time Seen by Provider: 07/31/24 12:00
Nursing documentation reviewed up to this point in time: agreed with
History of Present Illness
History of Present Illness:
Patient is a 63-year-old male who presents to the ER for evaluation of low hemoglobin. Patient reports he was getting IV antibiotics(daptomycin) through his PICC line status post osteomyelitis with amputations and was told his hemoglobin was low.
He denies any black stools. He did feel short of breath today with exertion.
He was recently discharged July 23, for left fourth metatarsal osteomyelitis and had bone resection /amputation of his left fourth metatarsal. His discharge hemoglobin at that time was 8.1. Patient has a history of IDDM, chronic kidney
disease stage III chronic diastolic heart failure hypertension.
Past History
Past History
ED Past Medical History: HTN, IDDM, Psychiatric (Anxiety) and Other (Low back pain)
ED Past Surgical History: Orthopedic (Back surgeries) and Other (Amputation left fifth toe)
Social History
Tobacco: Non-smoker
Alcohol: Occasional
Personal:
Living: other (Resides with brother )
Employment: Disabled
Family History
Family History: Other (Noncontributory)
Review of Systems
Review of Systems
Allergies reviewed?: Yes
All Other Systems: ROS reviewed and negative except as documented in HPI and ROS
Constitutional: Reports no symptoms; Denies fever or chills
Respiratory: Reports trouble breathing (+ APODACA )
Cardiac: Reports no symptoms
ABD/GI: Reports no symptoms; Denies abdominal pain, nausea, vomiting, constipated or black stools
: Reports no symptoms
Musculoskeletal: Reports other (+ l/e swelling )
Skin: Reports no symptoms
Neurological: Reports no symptoms
Psychiatric: Reports no symptoms
Phy Exam
General Physical Exam
General Presentation: no apparent distress
General age: appears stated age
General Skin: warm and dry
General Habitus: normal
General Mental: alert
General Hydration: appears well hydrated
Cardiovascular Exam
Cardiovascular Exam: regular rate/rhythm, no murmur and normal peripheral pulses
Pulmonary Exam
Pulmonary Exam: lungs clear and no respiratory distress
Gastrointestinal Exam
Gastrointestinal Exam: normal bowel sounds, soft and other (brown stool heme neg )
Neurological Exam
Neurological Exam: alert and oriented x3
Musculoskeletal Exam
Musculoskeletal Exam: other (+ swelling to b/l l/e ; left foot with sutures in place at site of amputation no drainage no evidence of infection)
Skin Exam
Skin Exam: normal color and warm/dry
Psychiatric Exam
Psychiatric Exam: normal mood/affect
Course
Orders/Labs/Results
Orders:
Orders
07/31/24 12:12
IV Insert/Care/Rem.- Treatment PRN
07/31/24 12:15
CXR [CR Chest Portable - 1 View] Urgent
Comment:
Reason For Exam: PICC
Reason Study Needs to be Portable: Unable to Transport
07/31/24 12:43
Complete Blood Count/With Diff Urgent
Comprehensive Metabolic Panel Urgent
07/31/24 13:29
Type+Screen Urgent
BBK Wristband Number:
07/31/24 14:14
Add On- LAB Urgent
Tests Added?: cardiac BNP
07/31/24 14:24
Furosemide [Lasix] 20 mg IV NOW STA
07/31/24 14:28
Electrocardiogram (*1) Stat
Reason for Study: Other
Other Reason for Exam: chest pain
EKG- Treatment ONCE
Abnormal Lab Results
07/31/24
12:43
RBC 2.62 L 10^6/uL
(4.70-6.10)
Hgb 7.5 L g/dL
(13.0-18.0)
Hct 22.9 L %
(39.0-52.0)
MCHC 32.8 L g/dL
(33.0-37.0)
RDW 15.9 H %
(11.5-14.5)
Absolute Lymphs (auto) 0.7 L 10^3/uL
(1.2-3.4)
Lymphocytes % 12.6 L %
(20.5-51.1)
Monocytes % 10.3 H %
(1.7-9.3)
Potassium 5.2 H mmol/L
(3.5-5.1)
Chloride 114 H mmol/L
(98-107)
Carbon Dioxide 15 L mmol/L
(22-30)
BUN 68 H mg/dl
(9-20)
Creatinine 2.9 H mg/dL
(0.7-1.3)
Glucose 108 H mg/dl
(70-99)
Alkaline Phosphatase 203 H U/L
(38-126)
Albumin 3.4 L g/dl
(3.5-5.0)
07/31/24 12:43
07/31/24 12:43
Vital Signs
Initial and Last Documented VS:
Initial Vital Signs
Temp Pulse Resp BP Pulse Ox
98.2 F 79 16 148/96 94
07/31/24 10:32 07/31/24 10:32 07/31/24 10:32 07/31/24 10:32 07/31/24 10:32
Last Documented Vital Signs
Temp Pulse Resp BP Pulse Ox
98.2 F 80 20 159/71 92
07/31/24 10:32 07/31/24 14:29 07/31/24 12:30 07/31/24 14:29 07/31/24 12:30
Sustainability Project Coordinator consulted with Physician
Sustainability Project Coordinator consulted with physician?: Yes
Name of Physician Consulted: Noh
MDM/Problems Addressed
Differential Diagnosis Includes:
not limited to: Anemia GI bleed CHF
MDM/Problems Addressed:
As documented patient is a 63-year-old male with history of IDDM renal insufficiency was just discharged July 23 for osteomyelitis and left toe amputation. He is receiving daptomycin as outpatient via PICC line and has had some shortness of
breath and increasing lower extremity swelling/dyspnea on exertion. Patient was sent for symptoms and low hemoglobin. Patient's hemoglobin is 7.5 today it was 8.1 on discharge and 7.62 days ago. He denies any black or dark stools stools are brown
heme-negative. On exam he does have lower extremity swelling bilaterally left foot with sutures in place with no erythema. Lungs are clear chest x-ray does show mild CHF. Case reviewed with ED physician questionable fluid overloaded as well which
may be contributing to his shortness of breath since hemoglobin is slightly lower we will hold off on blood transfusion here in the ER for type and screen was done will give IV Lasix for fluid overload.
*Radiology
Radiology exam reviewed: radiology read reviewed
*Pulse Oximetry
Patient hypoxic: no
*Critical Care Note
Total Time (30-74mins, 75-104mins- exclusive of procedures): Not Applicable
Data Reviewed
Review of Other/Old Records Reveals: Labs and Discharge Summary
Source: patient
ED Attending Note
-
Portions of this chart may have been created with voice recognition software.� Occasional wrong word or��sound alike� substitutions may have occurred due to the inherent limitations of voice recognition software.
Discharge Plan
Departure
Patient Disposition: Admit
Date of Disposition: 07/31/24
Time of Disposition: 14:26
Admit to: Telemetry
Admit to doctor: hospitaist
Presentation/result/management discussed w/ accepting MD/DO: Hospitalist
Patient with high blood pressure during this ER visit?: Yes
Condition: Fair
Covid-19: Not Applicable
Discharge Problem:
Anemia, dyspnea on exertion, Congestive heart failure (CHF)
Prescriptions:
No Action
acetaminophen 500 mg Tablet
500 mg PO Q6HPRN PRN (Reason: mild pain)
lorazepam 1 mg tablet
1 mg PO TID
bupropion HCl [Wellbutrin SR] 150 mg Tablet Sustained-Release 12 Hr
150 mg PO BID
carvedilol 3.125 mg Tablet
3.125 mg PO BID
gabapentin 300 mg Capsule
300 mg PO BID
albuterol sulfate 90 mcg/actuation Hfa Aerosol Inhaler
2 puff INHALATION R Q6HPRN PRN (Reason: sob)
lisinopril 40 mg Tablet
40 mg PO DAILY
insulin lispro protamin-lispro [Humalog Mix 75-25 KwikPen] 100 unit/mL (75-25) insulin pen
0 unit SC BID
Patient Comments:
07/09/24: Sliding scale dependent on blood sugar.
DAPTOmycin [Cubicin] 800 MG
Syringe [Syringe-Pump] 0 ML
As Directed mls/hr IV Q48H
Reason for use: Infection
Ordered By: Rafa Bee DO, Resident
Last Taken: Unknown
ibuprofen [Advil] 200 mg Tablet
400 mg PO Q6H PRN (Reason: pain)
Referrals:
Nik Dumont MD [Family Provider] -
Interventions
Interventions:
*Risk Screen - Suicide Last Done: 07/31/24 10:32
*General Assessment Last Done: 07/31/24 13:00
*Neglect/Abuse Screening Last Done: 07/31/24 10:32
ED- Fall Risk Assessment Last Done: 07/31/24 12:59
*ED COVID-19 Vaccine History Last Done: 07/31/24 13:00
Discharge Date and Time
Print Language: IRAQI
[2024-07-31] MEDS: LASIX 20 MG IV (14:29)
[2024-07-31 15:58] LABS: NT-proBNP 11600 pg/ml
--- NOTE | 2024-07-31 17:21 | W.PN.UPDATE ---
Update Note
Progress Note Update
Seen and examined by me independently in collaboration with the medical student Avi.
Past medical history/social history/medication/allergies reviewed.
Lab data and imaging data reviewed.
Patient was here recently and discharged a week ago after being diagnosed with MRSA bacteremia, left foot osteomyelitis s/p surgery, new acute kidney injury with nephrotic syndrome, acute diastolic heart failure presents back with progressive
shortness of breath.
Over a week he has developed progressive shortness of breath and today he had difficulty when climbing stairs. He has a cough which is mostly dry. He feels his legs are very heavy due to significant fluid accumulation.
No chest pain or palpitations.
Currently not on any diuretics.
Denies any prior history of heart failure, ND, coronary stent. He says he had stress test 2 years ago and [facility].
He had similar issue with lower extremity edema which got improved in the hospital but then reaccumulated after discharge.
He is hypoxic requiring oxygen but no respiratory distress. JVD noted. Lower extremity edema 2+ noted. Chest sounds clear to me. Chest x-ray shows mild vascular congestion. Elevated BNP noted. Weight is stable from recent discharge presuming
that his today's weight is true.
No symptoms suggestive of infection. No consolidation on the chest x-ray afebrile.
EKG shows sinus rhythm with nonspecific T wave changes but no acute ST-T changes.
Echo from recent visit showed EF 60-65 but stage II diastolic dysfunction with abnormal relaxation and increased filling pressures noted. Indexed LA volume is severely abnormal and there is mild enlarged right ventricular size.
Clinical presentation is consistent with acute heart failure with preserved EF. Unclear if primary cardiac or secondary to renal dsyfunction . Also concerned about chronic anemia ,it seems to be anemia of chronic disease.
Admit to telemetry.
Patient given 20 of IV Lasix in the ER without any effect at all. Will give total of 80 mg IV Lasix due to his renal failure and poor response to low-dose Lasix. Follow the output and weight.
Consult cardiology and nephrology.
Repeat H&H tomorrow and if still in sevens will transfuse PRBC. Heme test stools.
Continue with his daptomycin for MRSA bacteremia as planned before.
--- NOTE | 2024-07-31 17:24 | HPS.HSE ---
Family Physician
-
Family Physician: Nik Dumont
Chief Complaint
-
Shortness of breath with exertion
History of Present Illness
63-year-old male past ministry of insulin-dependent diabetes mellitus, chronic kidney disease stage IIIb, heart failure preserved ejection fraction, chronic urinary retention, hypertension with a recent admission for osteomyelitis status post toe
amputation and MRSA bacteremia on IV daptomycin every 48 presents for increasing shortness of breath since Sunday. He states he has been feeling more and more fatigued, worse with exertion going up steps. He also endorses a cough, nonproductive.
As well as increased lower extremity swelling. He presented to [place] this morning for his daptomycin infusion, labs were drawn and he was told to report to the ED as his hemoglobin was 7.5. In the ED patient received IV Lasix 20 mg, was
started on 2 L oxygen.
Medical History
Past Medical History
Past Medical History: Reports CHF, HTN, IDDM, Renal Failure and Other (nephrotic syndrome, peripheral neuropathy, MRSA bacteremia)
Past Surgical History: Reports Orthopedic and Other (cholecystectomy, left 4th and 5th metatarsal amputation)
Social History
Tobacco: Non-smoker
Alcohol: None
Drug: None
Personal: Single
Living: With Family
Employment: Retired
Family History
Family History: Not pertinent
Allergies / Home Medications
Allergies reflects when Allergies were last updated in [facility].
Home Medications with original date entered in [facility]
Allergy/Medication List:
Allergies
Allergy/AdvReac Type Severity Reaction Status Date / Time
No Known Allergies Allergy Verified 07/31/24 10:32
Home Medications
acetaminophen 500 mg tablet 500 mg PO Q6HPRN PRN mild pain 03/26/22
bupropion HCl 150 mg tablet,12 hr sustained-release (Wellbutrin SR) 150 mg PO BID Depression 11/11/23
lorazepam 1 mg tablet 1 mg PO TID Anxiety 11/11/23
albuterol sulfate 90 mcg/actuation aerosol inhaler 2 puff inhalation R Q6HPRN PRN sob 07/09/24
carvedilol 3.125 mg tablet 3.125 mg PO BID Blood Pressure 07/09/24
gabapentin 300 mg capsule 300 mg PO BID Neurological Condition 07/09/24
insulin lispro protamine-lispro 100 unit/mL (75-25) subcutaneous pen (Humalog Mix 75-25 KwikPen) 0 unit SC AC Diabetes 07/09/24
lisinopril 40 mg tablet 40 mg PO DAILY Blood Pressure 07/09/24
DAPTOmycin [Cubicin] 800 mg As Directed mls/hr IV Q48H Infection 07/23/24
ibuprofen 200 mg tablet (Advil) 400 mg PO Q6HPRN PRN mild pain 07/31/24
Review of Systems
-
Constitutional: Reports Fatigue
Respiratory: Reports Cough and Trouble Breathing
Cardiac: Reports No Symptoms; Denies Chest Pain or Diaphoresis
Abdomen/GI: Reports No Symptoms
: Reports No Symptoms
Musculoskeletal: Reports Edema
Physical Exam
Vital Signs
Vital Signs
Temp Pulse Resp BP Pulse Ox
98.1 F 81 23 156/77 93
07/31/24 15:05 07/31/24 16:00 07/31/24 16:00 07/31/24 16:00 07/31/24 16:05
Physical Exam
General: Well Developed, Well Nourished, Comfortable and Conversant
Respiratory: Clear
Cardiac: S1/S2, Regular Rhythm, Peripheral Edema and JVD
GI: Soft, Non Tender and Non Distended
Musculoskeletal: Edema, Left Lower Extremity and Edema, Right Lower Extremity
Skin: Warm and Dry
Neuro: Awake, Alert, Oriented and AO x 3
Psych: Calm and Intact Judgment/Insight
Laboratory Results
-
07/31/24 12:43
07/31/24 12:43
Laboratory Results
Total Bilirubin 0.5 mg/dl (0.2-1.3) 07/31/24 12:43
AST 24 U/L (17-59) 07/31/24 12:43
ALT 38 U/L (0-50) 07/31/24 12:43
Alkaline Phosphatase 203 U/L (38-126) H 07/31/24 12:43
Data Reviewed
-
Diagnostic Radiology: Image Personally Visualized and interpreted, Report Reviewed by me and Discussed with Physician
Lab Data: Labs Reviewed by me and Discussed with Physician
Impression/Plan
-
IMPRESSION:
63-year-old male past ministry of heart failure preserved ejection fraction, recent admission for osteomyelitis status post fourth metatarsal amputation and MRSA bacteremia presents for acute on chronic heart failure exacerbation.
PLAN:
#Acute on chronic heart failure exacerbation
Patient reports progressive shortness of breath on exertion with nonproductive cough
Chest x-ray demonstrates interstitial fluid markings
JVD present on exam, lower extremity edema present on exam
Patient does not take Lasix at home
Recent echo 06/28/2024 demonstrates EF 60 to 65% with stage II diastolic dysfunction with abnormal relaxation and increased filling pressures noted. Indexed LA volume is severely abnormal and there is mildly enlarged right ventricular size.
Received 20 IV Lasix in ED, gave additional 60 IV
40 twice daily IV Lasix scheduled for tomorrow
Cardiology consult
Check troponins
Admit to telemetry
Oxygen as needed
DuoNebs as needed
#Suspected nephrotic syndrome
Extremely high 24-hour protein from previous labs
Biopsy was taken, results currently pending
Nephrology consult
Consider steroid initiation, per nephrology
#Chronic kidney disease stage IIIb
Patient's baseline creatinine unknown, today is 2.9
Was 2.9 last discharge
Nephrology consult
Daily CMP
#Acute on chronic anemia
Likely anemia of chronic disease
Hemoglobin was 8 on last discharge, 7.5 today
Consider transfusion 1 unit packed red blood cell tomorrow
Daily CBC
Heme test stools
#MRSA bacteremia
Blood cultures last admission grew MRSA
Has been receiving IV daptomycin every 48 hours through her PICC line outpatient
Will continue while inpatient
Enhanced contact precautions
#Hypertension
Continue home carvedilol
Holding lisinopril for the time being
#Insulin-dependent diabetes mellitus
Patient reports using 1 to 2 units insulin subcu at mealtime
Currently holding subcu insulin
Will cover with low resistance sliding scale
#Depression
Continue home Wellbutrin
Diet: Diabetic carb controlled with fluid restriction
CODE STATUS: Full code
DVT prophylaxis subcu heparin 5000 every 12 hours
--- NOTE | 2024-07-31 17:32 | CM ---
Addendum entered by Maria Bradshaw 07/31/24 17:54:
Has [facility] coming to home for wound care. OP infusion for Dapto.
Original Note:
CM reviewed chart. Currently on . Here for low hbg. Recently discharged on 07/23. Has a PICC line. Receiving daptomycin. ? fluid overload as well. Independent with cane. Home with brother. Lives in multi-level home. 2 steps to enter into home.
Independent with a cane. Retired. No +SDOHs. Has an active PCP. Uses [facility] as his pharmacy. He drove himself into the hospital. 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
ANTICIPATED DISCHARGE DISPO: Discharge to home with IV abxs (if they care still needed), when medically cleared.
[2024-07-31] MEDS: LASIX 60 MG IV (18:33)
[2024-07-31] MEDS: HEPARIN 5000 UNITS SC (21:02)
[2024-07-31] MEDS: COREG 3.125 MG PO (21:04)
[2024-07-31] MEDS: WELLBUTRIN SR (12 hour sustained release) 150 MG PO (21:05)
[2024-07-31 21:15] LABS: Troponin I < 0.012 ng/ml
[2024-07-31 21:26] LABS: Glucose - Point of Care 100 mg/dl (70-99)
[2024-07-31] MEDS: TYLENOL 500 MG PO (21:26)
[2024-07-31] MEDS: ATIVAN 1 MG PO (21:26)
[2024-07-31] MEDS: NEURONTIN 300 MG PO (21:30)
[2024-08-01] VITALS (8 sets, daily range): BP systolic 134–175; BP diastolic 71–83; PULSE 87; O2SAT 93; BMI 24.1
--- NOTE | 2024-08-01 03:22 | PTCARENOTE ---
Patient was received from ED via stretcher. He was assisted to bed by staff. He was oriented to room and surroundings. Ox3, HRR, NSR on tele, +2 LE edema, breaths sounds are decreased at the bases, voiding clear yellow in urinal. Patient
given CHF. Trending troponin. Tylenol for chronic back pain. Call [facility].
[2024-08-01 03:33] LABS: Troponin I < 0.012 ng/ml
[2024-08-01 07:09] LABS: Glucose - Point of Care 98 mg/dl (70-99)
--- NOTE | 2024-08-01 07:19 | W.PN.HOSP.TC ---
Addendum entered and electronically signed by Royer Bocnaegra MD 08/01/24 14:59:
Seen and examined by me independently in collaboration with the medical assisting instructor Avi.
Lab data and imaging data reviewed.
Addendum as below :
Patient is feeling improved after getting IV diuresis. Off of oxygen. Denies shortness of breath at rest. No chest pain or palpitation.
Chest clear to auscultation.
Creatinine stable at 2.9. Potassium is 5.0.
Improved.
Acute heart failure with preserved EF suspect secondary progressive chronic kidney disease. Continue diuresis. Appreciate nephrology and cardiology input.
Chronic anemia suspected anemia of chronic disease. Hemoglobin 8.0 today. Aim to keep it more than 8 in the setting of heart failure. Heme test stools to rule out any occult losses.Repeat Iron studies.
Original Note:
Today's Communication/Plan
-
Continue IV diuresis
Cardiology consult
Nephrology consult
Assessment / Plan
Assessment / Plan
Assessment:
63-year-old male past medical history of heart failure preserved ejection fraction, recent admission for osteomyelitis status post fourth metatarsal amputation and MRSA bacteremia presents for acute on chronic heart failure exacerbation.
Plan:
#Acute on chronic heart failure exacerbation
Improving
Patient reports progressive shortness of breath on exertion with nonproductive cough
Chest x-ray demonstrates interstitial fluid markings
JVD, lower extremity edema present on exam on admission
Patient does not take Lasix at home
Recent echo 06/28/2024 demonstrates EF 60 to 65% with stage II diastolic dysfunction with abnormal relaxation and increased filling pressures noted. Indexed LA volume is severely abnormal and there is mildly enlarged right ventricular size.
Received 80 IV Lasix in ED
continue 40mg twice daily IV Lasix scheduled
Cardiology consult
Cardiology recommending starting patient on 40 Lasix p.o. on discharge
Troponins negative, stop trending
Monitor on telemetry
Patient was requiring 2 L, has been weaned off of oxygen. Does not use oxygen at baseline
DuoNebs as needed
#Suspected nephrotic syndrome
Extremely high 24-hour protein from previous labs
Biopsy was taken, per call or contact centre operator kidney dysfunction is secondary to diabetes
Nephrology consult
#Chronic kidney disease stage IIIb
Patient's baseline creatinine unknown, today is 2.9
Was 2.9 last discharge
Nephrology consult
Daily CMP
#Acute on chronic anemia
Likely anemia of chronic disease
Hemoglobin was 8 on last discharge, 7.5 today
Consider transfusion 1 unit packed red blood cell tomorrow
Daily CBC
Heme test stools
#MRSA bacteremia
Blood cultures last admission grew MRSA
Has been receiving IV daptomycin every 48 hours through her PICC line outpatient
Will continue while inpatient
IV daptomycin 800 ordered for 08/02/2024 at 8 AM
Enhanced contact precautions
#Hypertension
Cardiology increased carvedilol to 3.125 twice daily
Holding lisinopril for the time being
#Insulin-dependent diabetes mellitus
Patient reports using 1 to 2 units insulin subcu at mealtime
Currently holding subcu insulin
Will cover with low resistance sliding scale
Hemoglobin A1c in a.m.
Lipid panel in a.m.
Consider initiation of statin based off of the lipids
#Depression
Continue home Wellbutrin
Diet: Diabetic carb controlled with fluid restriction
CODE STATUS: Full code
DVT prophylaxis subcu heparin 5000 every 12 hours
Anticipated Discharge: 24 - 48 hours
Subjective/Interval History
-
Date of Service: August 01, 2024
Patient reports shortness of breath has improved
Objective Data
-
Labs:
Laboratory Results
08/01/24
06:00
WBC Pending
Hgb Pending
Hct Pending
Plt Count Pending
Sodium Pending
Potassium Pending
Chloride Pending
Carbon Dioxide Pending
BUN Pending
Creatinine Pending
Glucose Pending
Calcium Pending
Total Bilirubin Pending
AST Pending
ALT Pending
Alkaline Phosphatase Pending
Vital Signs:
Vital Signs
Temp Pulse Resp BP Pulse Ox
98.4 F 84 14 135/75 95
08/01/24 02:56 08/01/24 02:56 08/01/24 02:56 08/01/24 02:56 08/01/24 02:56
I&O
07/31/24 08/01/24 08/02/24
06:59 06:59 06:59
Intake Total 200 / 200
Output Total 2024
Balance -1824 / -1824
Review of Systems
-
History Source: Patient
Constitutional: Reports No Symptoms
Respiratory: Reports Cough
Cardiac: Reports No Symptoms
Abdomen/GI: Reports No Symptoms
Genitourinary: Reports No Symptoms
Musculoskeletal: Reports Edema
Physical Exam
-
General: Well Developed, Well Nourished, No Apparent Distress, Comfortable and Conversant
Respiratory: Clear to Auscultation
Cardiac: Regular Rhythm and S1/S2
GI: Soft, Nontender and Nondistended
Musculoskeletal: Edema, Right Lower Extrem, Edema, Left Lower Extrem and Other (Left foot surgery wound healing well, no erythema tenderness or discharge)
Skin: Warm and Dry
Neuro: Awake, Alert, Oriented and AO x 3
Psych: Calm and Intact Judgement/Insight
Data Reviewed
-
Diagnostic Radiology: Report Reviewed by me and Discussed with Physician
Labs: Labs Reviewed by me and Discussed with Physician
[2024-08-01] MEDS: NOVOLOG FLEXPEN-LOW RESISTANCE SC ×3 (07:48→17:04)
[2024-08-01] MEDS: NEURONTIN 300 MG PO ×2 (07:59→20:28)
[2024-08-01] MEDS: ATIVAN 1 MG PO ×3 (07:59→21:46)
[2024-08-01] MEDS: LASIX 40 MG IV ×2 (08:00→15:57)
[2024-08-01] MEDS: COREG 3.125 MG PO ×2 (08:00→10:32)
[2024-08-01] MEDS: HEPARIN 5000 UNITS SC ×2 (08:00→20:28)
--- NOTE | 2024-08-01 09:17 | CM ---
Addendum entered by Liliana Gaitan 08/01/24 14:56:
Patient seen at bedside.
Call from Nancy at [facility], patient is current with [facility].
PLAN: home, [facility]
Original Note:
CAll from Lou JOHNSON at the [facility] - wanted to relay that the patient was receiving IV DAPTO 800mg every other day at [facility]. tt hospitalist
--- NOTE | 2024-08-01 10:13 | CON.CAR ---
Consultation
Consultation Request
Date/Time Consultation Requested: 08/01/2024
Date/Time Consultation Performed: 08/01/2024
Requesting Provider: Dr. Bocanegra
Performing Provider: Dr. Chatman
Reason for Consultation: CHF
Medical History
-
Chief Complaint: Shortness of breath
History of Present Illness:
63-year-old male with hypertension, hyperlipidemia, CKD, diabetes with diabetic neuropathy and foot wound/osteomyelitis who was getting an outpatient antibiotic infusion for his foot infection, but became short of breath afterwards. Admitted to the
hospital with volume overload/CHF. Recent echocardiogram revealed normal LVEF; therefore this is acute HFpEF secondary to progressive CKD. The patient is not on a diuretic as an outpatient. He denies chest pain, palpitations, or syncopal events.
He has noticed some progressive lower extremity swelling.
Past Medical History
Past Medical History: HTN, Hypercholesterolemia and IDDM
Past Surgical History: Cholecystectomy and Other (Left fourth and fifth metatarsal amputation)
Social History
Tobacco: Non-Smoker
Alcohol: Occasional (Very infrequent)
Drug: None
Personal: Single
Family History
Family History: Reviewed & Not Pertinent
Allergies / Home Medications
Allergy/AdvReac Type Severity Reaction Status Date / Time
No Known Allergies Allergy Verified 07/31/24 10:32
�Medication �Instructions �Recorded �Confirmed �Type
acetaminophen 500 mg tablet 500 mg PO Q6HPRN PRN mild pain 03/26/22 07/31/24 History
bupropion HCl 150 mg tablet,12 hr 150 mg PO BID Depression 11/11/23 07/31/24 History
sustained-release (Wellbutrin SR)
lorazepam 1 mg tablet 1 mg PO TID Anxiety 11/11/23 07/31/24 History
albuterol sulfate 90 mcg/actuation 2 puff inhalation R Q6HPRN PRN sob 07/09/24 07/31/24 History
aerosol inhaler
carvedilol 3.125 mg tablet 3.125 mg PO BID Blood Pressure 07/09/24 07/31/24 History
gabapentin 300 mg capsule 300 mg PO BID Neurological 07/09/24 07/31/24 History
Condition
insulin lispro protamine-lispro 0 unit SC AC Diabetes 07/09/24 07/31/24 History
100 unit/mL (75-25) subcutaneous
pen (Humalog Mix 75-25 KwikPen)
lisinopril 40 mg tablet 40 mg PO DAILY Blood Pressure 07/09/24 07/31/24 History
DAPTOmycin [Cubicin] 800 mg As Directed mls/hr IV Q48H 07/23/24 07/31/24 Rx
Infection
ibuprofen 200 mg tablet (Advil) 400 mg PO Q6HPRN PRN mild pain 07/31/24 07/31/24 History
Review of Systems
-
All other systems: Negative unless noted
Physical Exam
Vital Signs
Temp Pulse Resp BP Pulse Ox
98.3 F 90 18 165/82 95
08/01/24 07:46 08/01/24 07:46 08/01/24 07:46 08/01/24 07:46 08/01/24 07:46
Lab Results
Troponin I Cancelled 08/01/24 08:30
Qoq-P-Ospjptydzok Pept 79416 pg/ml 07/31/24 12:43
Physical Exam
General: No Apparent Distress and Comfortable
HEENT: Normocephalic
Respiratory: Clear
Cardiac: S1/S2, Regular Rhythm and Peripheral Edema (1-2+)
Breast: N/A
GI: Soft
Rectal: Deferred by Provider
Musculoskeletal: Edema (1-2+)
Skin: Warm and Dry
Neuro: AO x 3
Psych: Calm
Impression / Plan
-
63-year-old male with hypertension, hyperlipidemia, CKD, diabetes with diabetic neuropathy and foot wound/osteomyelitis who was getting an outpatient antibiotic infusion for his foot infection, but became short of breath afterwards. Admitted to the
hospital with volume overload/CHF. Recent echocardiogram revealed normal LVEF; therefore this is acute HFpEF secondary to progressive CKD. The patient is not on a diuretic as an outpatient. He has noticed some progressive lower extremity swelling.
Acute HFpEF secondary to progressive CKD - The patient is not on a diuretic as an outpatient.
-He has noticed some progressive lower extremity swelling as well.
-Monitor daily weights and I/Os.
-Continue Lasix 40 mg IV twice daily; recommend discharging to home likely on Lasix 40 mg PO daily.
-Recommend Nephrology consultation.
Hypertension:
-Will increase Coreg to 6.25 mg twice daily.
Hyperlipidemia:
-Current status of hyperlipidemia unknown; not on a statin currently.
-Will obtain lipid panel tomorrow morning; start statin if elevated (goal LDL less than 55 as patient is diabetic).
CKD:
-Recommend Nephrology consultation as above.
Diabetes:
-Will order hemoglobin A1c.
-Management as per primary team.
Data Reviewed
-
EKG: Report Reviewed by me (Normal sinus rhythm.)
Medical Tests (Nuc Med, Echo etc): Report Reviewed by me (Transthoracic echocardiogram (07/06/2024: LVEF 60-65%; no evidence of significant valvular disease.)
Labs: Labs Reviewed by me
[2024-08-01 11:12] LABS: Glucose - Point of Care 148 mg/dl (70-99)
[2024-08-01 11:50] LABS: Hematocrit 24.6 % (39.0-52.0); Mean Corp Hgb Conc. 32.5 g/dL (33.0-37.0); Mean Corpuscular Hgb 28.2 pg (27.0-31.0); Mean Corpuscular Volume 86.6 fL (80.0-94.0); Mean Platelet Volume 9.5 fL (7.4-10.4); Platelet Count 244 10^3/uL (130-400); Red Blood Cell Count 2.84 10^6/uL (4.70-6.10); Red Cell Dist. Width 15.7 % (11.5-14.5); White Blood Cell Count 6.6 10^3/uL (4.8-10.8)
--- NOTE | 2024-08-01 12:06 | W.CON.NEPH ---
Consultation
-
Date/Time Consultation Requested: 08/01/24 07
Date/Time Consultation Performed: 08/01/24 09
Requesting Provider: Dr. Bocanegra
Performing Provider: Dr Durant
Reason for Consultation: CKD
Medical History
-
Chief Complaint: IVY/CKD/Metabolic Acidosis
History of Present Illness:
The patient is a 63-year-old male with chronic kidney disease who maintained a baseline creatinine of 1.6 from October 2023. He has a history of hypertension which has been controlled on the combinations of his carvedilol and lisinopril. He has
longstanding diabetes maintained chronically on insulin and has microvascular complications including diabetic neuropathy. The patient presented to [facility] ED 07/10/24 for evaluation by recommendation of his travel guide. He was treated
for his foot infection and given antibiotics. His creatinine had risen up to 3.0. There was suspicion that this was likely diabetic nephropathy but workup also disclosed a positive [place]-3 antibody titer. He therefore underwent kidney biopsy which
had shown only diabetic nephropathy. He was subsequently discharged to home. He returned to the hospital because of worsening shortness of breath in the last 5 days. He also reports worsening dyspnea on exertion as well as lower extremity
swelling. On arrival to the emergency room he was noted to have a hemoglobin 7.5 and was diuresed with IV Lasix. We are asked to assist with management of his CKD
Past Medical History
DM II, biopsy-proven diabetic nephropathy
Hypertension
CKD 3g (1.6)
Lumbar DDD
Peripheral Neuropathy
Anxiety
Depression
Past Surgical History: Reports Other
Additional Past Surgical History:
Lumbar discectomy with fusion
Cholecystectomy
Left foot 5th metatarsal amputation
Social History
Tobacco: Non-Smoker
Alcohol: None
Drug: None
Family History
no CKD
Family History: Not Pertinent
Allergies / Home Medications
Allergy/AdvReac Type Severity Reaction Status Date / Time
No Known Allergies Allergy Verified 07/31/24 10:32
�Medication �Instructions �Recorded �Confirmed �Type
acetaminophen 500 mg tablet 500 mg PO Q6HPRN PRN mild pain 03/26/22 07/31/24 History
bupropion HCl 150 mg tablet,12 hr 150 mg PO BID Depression 11/11/23 07/31/24 History
sustained-release (Wellbutrin SR)
lorazepam 1 mg tablet 1 mg PO TID Anxiety 11/11/23 07/31/24 History
albuterol sulfate 90 mcg/actuation 2 puff inhalation R Q6HPRN PRN sob 07/09/24 07/31/24 History
aerosol inhaler
carvedilol 3.125 mg tablet 3.125 mg PO BID Blood Pressure 07/09/24 07/31/24 History
gabapentin 300 mg capsule 300 mg PO BID Neurological 07/09/24 07/31/24 History
Condition
insulin lispro protamine-lispro 0 unit SC AC Diabetes 07/09/24 07/31/24 History
100 unit/mL (75-25) subcutaneous
pen (Humalog Mix 75-25 KwikPen)
lisinopril 40 mg tablet 40 mg PO DAILY Blood Pressure 07/09/24 07/31/24 History
DAPTOmycin [Cubicin] 800 mg As Directed mls/hr IV Q48H 07/23/24 07/31/24 Rx
Infection
ibuprofen 200 mg tablet (Advil) 400 mg PO Q6HPRN PRN mild pain 07/31/24 07/31/24 History
Review of Systems
-
Shortness of breath improved, lower extremity edema improved no chest pain.
All other systems: Negative unless noted
Physical Exam
Vital Signs
Vital Signs
Temp Pulse Resp BP Pulse Ox
98.3 F 83 17 165/81 97
08/01/24 11:26 08/01/24 11:26 08/01/24 11:26 08/01/24 11:26 08/01/24 11:26
Lab Results
WBC 6.6 10^3/uL (4.8-10.8) 08/01/24 11:08
RBC 2.84 10^6/uL (4.70-6.10) L 08/01/24 11:08
Hgb 8.0 g/dL (13.0-18.0) L 08/01/24 11:08
Hct 24.6 % (39.0-52.0) L 08/01/24 11:08
Plt Count 244 10^3/uL (130-400) D 08/01/24 11:08
eGFR 23.72 07/31/24 12:43
Lqt-B-Evlnlueqauc Pept 59010 pg/ml 07/31/24 12:43
Laboratory Tests
07/23/24
04:45
Potassium 4.5
Creatinine 2.9 H
Physical Exam
Patient is awake alert oriented and in no distress. Mood and affect were pleasant, insight and judgment were good. Pupils are equal round and reactive to light, extraocular movements are intact, sclera were anicteric. Hearing was normal, ears and
nose are intact. Oropharynx was clear. Neck was supple with trachea midline and no thyromegaly. Heart was regular rate and rhythm without rubs. Lower extremities with 1+ edema. Lungs were clear to auscultation bilaterally and with normal
excursion. Abdomen was soft, nontender, with normal active bowel sounds, and no hepatosplenomegaly. Skin was without rash and with normal turgor.
Data Reviewed
-
Radiology: Image Personally Visualized and interpreted (Chest x-ray on 07/31/2024 by my reading shows vascular prominence, mild edema)
Medical Tests (Nuc Med, Echo etc): Image Personally Visualized and interpreted (EKG on 08/01/2024 by reading shows normal sinus rhythm)
Labs: Labs Reviewed by me
Old Records: Reviewed
Assessment/Plan
-
Impression:
CKD4 baseline 2.9
Metabolic acidosis
Edema
Shortness of breath
Left Foot osteomyelitis
HTN
+PR3 Ab
Nephrotic range proteinuria of 5 g, biopsy-proven diabetic nephropathy
Plan:
follow BMP
Diuresis
Continue antibiotics for osteomyelitis
Okay to continue lisinopril
Will need oral Lasix at time of discharge
[2024-08-01 12:10] LABS: ALT (SGPT) 32 U/L (0-50); AST (SGOT) 22 U/L (17-59); Albumin 3.4 g/dl (3.5-5.0); Alkaline Phosphatase 199 U/L (38-126); Blood Urea Nitrogen 66 mg/dl (9-20); Carbon Dioxide 17 mmol/L (22-30); Chloride 111 mmol/L (98-107); Estimated Creatinine Clearance 32 ml/min; Glucose 143 mg/dl (70-99); Magnesium 2.4 mg/dl (1.6-2.3); Sodium 141 mmol/L (135-145); Total Bilirubin 0.5 mg/dl (0.2-1.3); Total Protein 6.8 g/dl (6.3-8.2); eGFR 23.72
--- NOTE | 2024-08-01 13:12 | WOUNDNOTE ---
SHAYAN RN note: Patient admitted with CHF,anemia.
See H&P for complete history.
PMH:IDDM, neuropathy, anxiety, back surgery 3 x with rods. L 5th toe amp done 07/17/24-Dr. Valenzuela.
Wound Location and type/assessment: L 5th toe amp site with intact sutures, no drainage or odor. distal to sutures small chronic open area, scant drainage no odor. Plantar foot with dry intact callus. Offloading shoe at bedside. Reviewed Preschool Program Director
note post surgery, patient was unable to follow up with Dr. Alfredo he states. Patient reports Hgb A1c now at a 5, was 14 in past. + palpable pedal pulses, 1+ edema in L foot. TT a picture to Dr. Alfredo who verified wound care orders and compression with jim
wrap to foot. Patient confirms he is current with [facility].
Appetite: Good,encouraged protein in diet.
Pressure redistribution devices in place: On Accumax bed, able to turn self in bed.
Plan: Per Dr. Valenzuela, adaptic, dry dressing and jim wrap applied. Updated nurse and
updated care plan, will follow as needed.
Note to case management of equipment requested for discharge: [facility]
Recommend follow up with Preschool Program Director.
--- NOTE | 2024-08-01 13:13 | WOUNDNOTE ---
SHAYAN RN note: Patient admitted with CHF,anemia.
See H&P for complete history.
PMH:IDDM, neuropathy, anxiety, back surgery 3 x with rods. L 5th toe amp done 07/17/24-Dr. Vaelnzuela.
Wound Location and type/assessment: L 5th toe amp site with intact sutures, no drainage or odor. distal to sutures small chronic open area, scant drainage no odor. Plantar foot with dry intact callus. Offloading shoe at bedside. Reviewed Lens Hardener
note post surgery, patient was unable to follow up with Dr. Alfredo he states. Patient reports Hgb A1c now at a 5, was 14 in past. + palpable pedal pulses, 1+ edema in L foot. TT a picture to Dr. Alfredo who verified wound care orders and compression with jim
wrap to foot. Patient confirms he is current with VN. Turned self in bed, sacrum and heels are intact.
Appetite: Good,encouraged protein in diet.
Pressure redistribution devices in place: On Accumax bed, able to turn self in bed. Pressure ulcer prevention measures reviewed with patient, states he understands.
Plan: Per Dr. Valenzuela, adaptic, dry dressing and jim wrap applied. Updated nurse and
care plan, will follow as needed.
Note to case management of equipment requested for discharge: VN
Recommend follow up with Lens Hardener.
[2024-08-01 16:46] LABS: Glucose - Point of Care 145 mg/dl (70-99)
[2024-08-01] MEDS: COREG 6.25 MG PO (20:28)
[2024-08-01 21:32] LABS: Glucose - Point of Care 124 mg/dl (70-99)
[2024-08-01] MEDS: WELLBUTRIN SR (12 hour sustained release) 150 MG PO (21:46)
[2024-08-02] VITALS (8 sets, daily range): BP systolic 141–182; BP diastolic 64–86
[2024-08-02] MEDS: APRESOLINE 5 MG IV (00:39)
[2024-08-02] MEDS: FLUSH (NSS) 2 FLUSH IV (00:40)
[2024-08-02] MEDS: TYLENOL 500 MG PO ×2 (03:52→16:03)
[2024-08-02 05:23] LABS: Hematocrit 21.9 % (39.0-52.0); Mean Corpuscular Hgb 27.5 pg (27.0-31.0); Mean Corpuscular Volume 85.9 fL (80.0-94.0); Mean Platelet Volume 9.9 fL (7.4-10.4); Platelet Count 207 10^3/uL (130-400); Red Blood Cell Count 2.55 10^6/uL (4.70-6.10); Red Cell Dist. Width 15.6 % (11.5-14.5)
[2024-08-02 05:52] LABS: ALT (SGPT) 24 U/L (0-50); AST (SGOT) 17 U/L (17-59); Alkaline Phosphatase 166 U/L (38-126); Blood Urea Nitrogen 67 mg/dl (9-20); Calcium 8.5 mg/dl (8.4-10.2); Carbon Dioxide 17 mmol/L (22-30); Chloride 112 mmol/L (98-107); Estimated Creatinine Clearance 32 ml/min; Glucose 100 mg/dl (70-99); HDL Cholesterol 35 mg/dl; Iron 22 ug/dl (49-181); LDL Cholesterol, Calculated 62 mg/dl; Potassium 4.4 mmol/L (3.5-5.1); Sodium 144 mmol/L (135-145); Total Bilirubin 0.3 mg/dl (0.2-1.3); Total Cholesterol 113 mg/dl (50-199); Total Protein 6.1 g/dl (6.3-8.2); Triglyceride 82 mg/dl (10-149); Very Low Density Lipoprotein 16 mg/dl (0-30); eGFR 23.72
[2024-08-02 06:01] LABS: Percent Saturation 10 % (20-50); Total Iron Binding Capacity 216 ug/dl (261-462)
[2024-08-02 08:01] LABS: Glucose - Point of Care 105 mg/dl (70-99)
[2024-08-02] MEDS: NOVOLOG FLEXPEN-LOW RESISTANCE SC (08:01)
[2024-08-02] MEDS: CUBICIN 16 MG IV (08:02)
[2024-08-02] MEDS: LASIX 40 MG IV (08:02)
[2024-08-02] MEDS: COREG 6.25 MG PO (08:03)
[2024-08-02] MEDS: ATIVAN 1 MG PO ×2 (08:03→16:03)
[2024-08-02] MEDS: NEURONTIN 300 MG PO (08:03)
[2024-08-02] MEDS: HEPARIN 5000 UNITS SC (08:03)
--- NOTE | 2024-08-02 09:03 | W.PN.CD ---
Today's Communication / Plan
-
IV lasix today
PO lasix 40 mg MWF
We will arrange cardiology f/u.
He will need nephro f/u given CKD
We will sign off please call with questions/concerns.
Impression / Plan
-
63-year-old male with hypertension, hyperlipidemia, CKD, diabetes with diabetic neuropathy and foot wound/osteomyelitis who was getting an outpatient antibiotic infusion for his foot infection, but became short of breath afterwards. Admitted to the
hospital with volume overload/CHF. Recent echocardiogram revealed normal LVEF; therefore this is acute HFpEF secondary to progressive CKD. The patient is not on a diuretic as an outpatient. He has noticed some progressive lower extremity swelling.
Acute HFpEF secondary to progressive CKD - The patient is not on a diuretic as an outpatient.
-He has noticed some progressive lower extremity swelling as well.
-Monitor daily weights and I/Os.
-IV lasix this AM, then 40 mg MWF thereafter
-CKD needs neprhology f/u
- will need cardiology follow up
- BMP next week
Hypertension:
-Will increase Coreg to 6.25 mg twice daily.
Hyperlipidemia:
-Current status of hyperlipidemia unknown; not on a statin currently.
-Will obtain lipid panel tomorrow morning; start statin if elevated (goal LDL less than 55 as patient is diabetic).
CKD:
-Recommend Nephrology consultation as above.
Diabetes:
-Will order hemoglobin A1c.
-Management as per primary team.
Subjective: Patient asking to leave feels back at baseline
Physical Exam
Vital Signs/Labs
Vital Signs
Temp Pulse Resp BP Pulse Ox
98.6 F 82 16 141/64 93
08/02/24 07:15 08/02/24 07:15 08/02/24 07:15 08/02/24 07:15 08/02/24 07:15
08/01/24 08/02/24 08/03/24
06:59 06:59 06:59
Actual Weight 193 lb 1.6 oz
08/02/24 04:39
08/02/24 04:39
Magnesium 2.4 mg/dl (1.6-2.3) H 08/01/24 11:08
Triglycerides 82 mg/dl (10-149) 08/02/24 04:39
LDL Cholesterol, Calc 62 mg/dl 08/02/24 04:39
VLDL Cholesterol, Calc 16 mg/dl (0-30) 08/02/24 04:39
HDL Cholesterol 35 mg/dl 08/02/24 04:39
07/31/24
12:43
Zcx-P-[id number] Pept [id number]
LAB Results
07/31/24 07/31/24 07/31/24
17:15 20:41 23:15
Troponin I Cancelled < 0.012 Cancelled
08/01/24 08/01/24
02:46 08:30
Troponin I < 0.012 Cancelled
Physical Exam
Constitutional: No acute distress
EENT: Anicteric
Cardiovascular: Rhythm & rate is regular and Pedal edema is absent
Respiratory: Respiratory effort normal and Crackles Present (trace b/l bases )
GI: Soft
Neuro/Psych: AO x 3
Data Reviewed
-
Date of Service: August 02, 2024
EKG: Tracing Personally Visualized and interpreted (sr)
Echo: Report Reviewed by me
Labs: Labs Reviewed by me
--- NOTE | 2024-08-02 09:38 | W.PN.NEPH.PH ---
Today's Communication / Plan
-
po lasix
Assessment/Plan
-
Impression:
CKD4 baseline 2.9
Metabolic acidosis
Edema
Shortness of breath
Left Foot osteomyelitis
HTN
+PR3 Ab
Nephrotic range proteinuria of 5 g, biopsy-proven diabetic nephropathy
Plan:
follow BMP
Continue antibiotics for osteomyelitis
Okay to continue lisinopril
change to po lasix 40mg po BID
if dc, will need BMP next week
-
-
Date of Service: August 02, 2024
CC / HPI / ROS
-
Chief Complaint:
CKD
History of Present Illness:
CKD/Cr stable at 2.9
diuresing well with IV lasix for decompensated HFpEF
Metabolic acidosis stable
K normal
BP stable
Review of Systems:
no CP/SOB
Labs
-
Labs:
WBC 6.0 10^3/uL (4.8-10.8) 08/02/24 04:39
RBC 2.55 10^6/uL (4.70-6.10) L 08/02/24 04:39
Hgb 7.0 g/dL (13.0-18.0) L 08/02/24 04:39
Hct 21.9 % (39.0-52.0) L 08/02/24 04:39
Plt Count 207 10^3/uL (130-400) 08/02/24 04:39
Sodium 144 mmol/L (135-145) 08/02/24 04:39
Potassium 4.4 mmol/L (3.5-5.1) 08/02/24 04:39
Chloride 112 mmol/L (98-107) H 08/02/24 04:39
Carbon Dioxide 17 mmol/L (22-30) L 08/02/24 04:39
BUN 67 mg/dl (9-20) H 08/02/24 04:39
Creatinine 2.9 mg/dL (0.7-1.3) H 08/02/24 04:39
eGFR 23.72 08/02/24 04:39
Glucose 100 mg/dl (70-99) H 08/02/24 04:39
Calcium 8.5 mg/dl (8.4-10.2) 08/02/24 04:39
Alq-I-Uchgwwnbsco Pept 36137 pg/ml 07/31/24 12:43
Albumin 3.0 g/dl (3.5-5.0) L 08/02/24 04:39
Physical Exam
-
Vital Signs:
Vital Signs
Temp Pulse Resp BP Pulse Ox
98.6 F 82 16 141/64 93
08/02/24 07:15 08/02/24 07:15 08/02/24 07:15 08/02/24 07:15 08/02/24 07:15
Cardiovascular:: Regular rate and rhythm
Respiratory:: Bilateral: Coarse
Lung Excursion:: Normal
Abdomen:: Nontender and Soft
Bowel Sounds:: Normal
Extremity Edema:: +2: Right: and +3: Left:
[2024-08-02 11:25] LABS: Glucose - Point of Care 173 mg/dl (70-99)
[2024-08-02] MEDS: NOVOLOG FLEXPEN-LOW RESISTANCE 1 UNITS SC (11:25)
--- NOTE | 2024-08-02 13:27 | W.PN.HOSP.TC ---
Addendum entered and electronically signed by Royer Bocanegra MD 08/02/24 14:52:
Seen and examined by me independently in collaboration with the medical laboratory technicians Avi.
Lab data and imaging data reviewed.
Addendum as below :
Feeling improved from breathing standpoint.. Chest is clear.
No chest pain.
Creatinine remained stable.
Cleared by nephrology and cardiology for discharge on oral Lasix.
Continue with his IV antibiotic regimen as planned before.
Patient is anemic which is normocytic. Hemoglobin today 7.0. No acute coronary syndrome. He did come in with shortness of breath which could be the volume overload but with anemia being so severe failure he would benefit of transfusion. Patient
consented for blood.
He denies any prior GI bleed. But he did not have any prior colonoscopies including screening.
Today he was brown stool heme positive.
Iron studies with a percent saturation of 10 concerning for iron deficiency but rest of the iron studies suggest anemia of chronic disease.
I really would need endoscopic eval but with no acute active GI bleed well obtain GI input.
GI on-call Dr. Yee recommends an expedited outpatient colonoscopy exam. She is going to arrange for that.
After transfusion will discharge patient home and follow H&H closely with PCP in meantime.
Total time of discharge 35 minutes.
Original Note:
Today's Communication/Plan
-
Transfuse 1 unit of packed red blood cell
Nephrology/cardiology recommendations
Continue on last day IV diuresis
Discharge home with outpatient follow-up
Assessment / Plan
Assessment / Plan
Assessment:
63-year-old male past medical history of heart failure preserved ejection fraction, recent admission for osteomyelitis status post fourth metatarsal amputation and MRSA bacteremia presents for acute on chronic heart failure exacerbation.
Plan:
#Acute on chronic heart failure exacerbation
Improving
Patient reports progressive shortness of breath on exertion with nonproductive cough
Chest x-ray demonstrates interstitial fluid markings
JVD, lower extremity edema present on exam on admission
Patient does not take Lasix at home
Recent echo 06/28/2024 demonstrates EF 60 to 65% with stage II diastolic dysfunction with abnormal relaxation and increased filling pressures noted. Indexed LA volume is severely abnormal and there is mildly enlarged right ventricular size.
Received 80 IV Lasix in ED
Received IV lasix during stay
Transitioned to PO lasix
Cardiology consult
Cardiology recommending starting patient on 40 Lasix p.o. Sunday on discharge
Troponins negative, stop trending
Monitor on telemetry
Patient was requiring 2 L, has been weaned off of oxygen. Does not use oxygen at baseline
DuoNebs as needed
#Suspected nephrotic syndrome
Extremely high 24-hour protein from previous labs
Biopsy was taken, per engine installer kidney dysfunction is secondary to diabetes
Nephrology consult
#Chronic kidney disease stage IIIb
Patient's baseline creatinine unknown, today is 2.9
Was 2.9 last discharge
Nephrology consult
Daily CMP
#Acute on chronic anemia
Likely anemia of chronic disease
Hemoglobin was 8 on last discharge, 7.0 today
Consent obtained for blood transfusion, consent given to refinery operator reforming unit to be placed in chart
Transfuse 1 unit packed red blood cell
Daily CBC
Stools were heme positive
GI was contacted and will call pt Sunday after discharge
#MRSA bacteremia
Blood cultures last admission grew MRSA
Has been receiving IV daptomycin every 48 hours through her PICC line outpatient
Will continue while inpatient
IV daptomycin 800 ordered for 08/02/2024 at 8 AM
Spoke to director of casework who will reach out to outpatient infusion center and inform them he did receive this dose. His next dose is scheduled for 08/04/2024
Enhanced contact precautions
#Hypertension
Cardiology increased carvedilol to 6.25 twice daily
Holding lisinopril for the time being
#Insulin-dependent diabetes mellitus
Patient reports using 1 to 2 units insulin subcu at mealtime
Currently holding subcu insulin
Will cover with low resistance sliding scale
#Depression
Continue home Wellbutrin
Diet: Diabetic carb controlled with fluid restriction
CODE STATUS: Full code
DVT prophylaxis subcu heparin 5000 every 12 hours
Anticipated Discharge: Today
Subjective/Interval History
-
Date of Service: August 02, 2024
no complaints today. Hgb returned 7.0
Objective Data
-
Labs:
Laboratory Results
08/02/24
04:39
WBC 6.0
Hgb 7.0 L
Hct 21.9 L
Plt Count 207
Sodium 144
Potassium 4.4
Chloride 112 H
Carbon Dioxide 17 L
BUN 67 H
Creatinine 2.9 H
Glucose 100 H
Calcium 8.5
Total Bilirubin 0.3
AST 17
ALT 24
Alkaline Phosphatase 166 H
Vital Signs:
Vital Signs
Temp Pulse Resp BP Pulse Ox
98.4 F 81 16 154/71 92
08/02/24 11:15 08/02/24 11:15 08/02/24 11:15 08/02/24 11:15 08/02/24 11:15
I&O
08/01/24 08/02/24 08/03/24
06:59 06:59 06:59
Intake Total 200 / 200 1140 / 1140
Output Total 2024
Balance -1825 / -1825 1140 / 1140
Review of Systems
-
Constitutional: Reports No Symptoms
Respiratory: Reports Cough
Cardiac: Reports No Symptoms
Abdomen/GI: Reports No Symptoms
Genitourinary: Reports No Symptoms
Physical Exam
-
General: Well Developed, Well Nourished, No Apparent Distress, Comfortable and Conversant
Respiratory: Clear to Auscultation
Cardiac: Regular Rhythm and S1/S2
GI: Soft, Nontender and Nondistended
Musculoskeletal: Edema, Right Lower Extrem and Edema, Left Lower Extrem
Skin: Warm and Dry
Neuro: Awake, Alert, Oriented and AO x 3
Psych: Calm and Intact Judgement/Insight
Data Reviewed
-
Labs: Labs Reviewed by me and Discussed with Physician
[2024-08-02] MEDS: ROBITUSSIN DM 10 ML PO (14:20)
--- NOTE | 2024-08-02 14:41 | CM ---
CM following re: d/c planning.
Pt for d/c today.
He received IV Dapto today, plan to resume Sunday as per normal schedule.
left for [place] outpatient infusion center to update.
TT to Lou Crawford to update, received reply.
Goal: home with [facility] resumption of care
--- NOTE | 2024-08-02 15:44 | PTCARENOTE ---
discharge orders noted. patient blood transfusion completed prior discharge, no adverse reactions noted. d/c instructions explained including wound care. patient will cont IV antibiotics via RUE PICC after discharge at home setting.
--- NOTE | 2024-08-02 16:30 | PTCARENOTE ---
post transfusion BP 182/86. MD made aware. patient refused to wait to get the medication for BP and decided to leave, since discharge paperwork was already provided and his family was already outside to pick him up. education provided. understanding
verbalized. patient was transported via wheelchair to the main lobby where he was picked up by his brother
--- NOTE | 2024-08-02 16:35 | W.DCSUMMARY ---
Discharge Summary
Discharge Data
Date of Admission: 07/31/24
Date of Discharge: 08/02/24
-
Pending Results: No
Hospital Course
Discharging Physician : Daljit Bee
Disposition : Home
Primary care physician : Dr. Nik Dumont
Principal Discharge diagnosis : Acute on chronic heart failure exacerbation
Chronic Discharge diagnosis : MRSA bacteremia, nephrotic syndrome secondary to diabetes, chronic kidney disease stage IIIb, acute on chronic anemia, hypertension, insulin-dependent diabetes mellitus, depression
Hospital Course : 63-year-old male past ministry of insulin-dependent diabetes, CKD stage IIIb, heart failure preserved ejection fraction, chronic urinary tension, hypertension with a recent admission for osteomyelitis status post toe amputation and
MRSA bacteremia on IV daptomycin every 48 hours presented for increasing shortness of breath of few days duration. She states feeling more fatigued, worse with exertion. He also endorses a nonproductive cough and increased lower extremity
swelling. He reported to his outpatient infusion center, was found to have a hemoglobin 7.5 and was sent to the ED. In the ED he was started on 2 L of oxygen and given IV Lasix. Nephrology was consulted, cardiology was consulted and we initiated
the patient on 80 total IV Lasix and then 40 twice daily afterwards. Patient diuresed well, weight decreased, shortness of breath improved and lower extremity edema improved. Nephrology and cardiology believe his acute on chronic heart failure is
secondary to progressive chronic kidney disease. Cardiology was consulted ultimately they decided to increase his Coreg from 3.125-6.25 twice daily, they also recommended starting him on 40 mg p.o. Lasix Sunday. And follow-up with
cardiology. During his stay patient received his dose of IV daptomycin on 08/02/2024, psychiatric social worker was contacted to call outpatient infusion center and left a message regarding that he had received his dose. His next dose is scheduled for
08/04/2024. After IV diuresis, patient was transitioned to oral Lasix, he tolerated this well. However on his last day he was noted to have a hemoglobin of 7.0. Consent for transfusion was acquired and patient was transfused 1 unit packed red
blood cell. Patient was also noted to have heme positive stools, GI was contacted, as patient has never had a colonoscopy they recommended him following up with them as outpatient. GI will call patient to arrange outpatient follow-up after
discharge. Patient will also follow-up with his primary care physician within 1 week of discharge, nephrology in 1 to 2 weeks and cardiology in 2 to 4 weeks after discharge. On discharge medication adjustments include increasing Coreg, initiating
furosemide and stopping ibuprofen. Patient was discharged home with outpatient follow-up.
Important imaging findings :
07/31/2024, chest x-ray impression:
Right PICC line catheter tip in the central third of superior vena cava. No pneumothorax. Mild congestive heart failure.
Procedure findings :
08/02/2024 1 unit packed red blood cell transfusion
Discharge Plan
-
Patient Disposition: Home (Routine Discharge)
Discharge Diagnosis/Procedures: Acute on chronic heart failure exacerbation
Condition: Good
Diet: Low Sodium and Restrict fluids to 48 oz
Activity: As tolerated
Driving Restrictions: As prior to admission
Bathing Restrictions: None
Blood Work: BMP in one week by PCP; CBC blood work with PCP in one week.
Activity Restrictions/Additional Instructions:
Wound Care Instructions
L foot: clean with soap and water, adaptic, ABD pad and kerlix daily, (jim wrap to foot, can remove at hs.)
offloading shoe to L foot when ambulating
leg elevation when sitting
increase protein in diet.
Follow up with Dr. Valenzuela.
Follow up with your PCP within one week of discharge
Follow up with nephrology in one-two weeks
Follow up with cardiology in 2-4 weeks
Follow up with GI. They will reach out on Sunday by phone to schedule an appointment
Instructions: *PCP/Other Chief Customer Officer Heart Failure Instructions
Referrals:
Kameron Muniz MD [Active] - in two to four weeks
Dustin Durant MD [Active] - in one to two weeks
Nik Dumont MD [Family Provider] - in less than 1 week
Marcelle Yee DO [Active] - in one to two months
Additional Discharge Medication Instructions: Increased carvedilol by from 3.125 to 6.25mg by mouth twice a day
Started furosemide 40mg on Sunday, Sunday and Sunday by mouth once daily
Stopped ibuprofen
Prescriptions:
New
carvedilol 6.25 mg Tablet
6.25 mg PO BID Qty: 60 0RF
furosemide [Lasix] 40 mg tablet
40 mg PO .MWF Qty: 30 0RF
Continued
acetaminophen 500 mg Tablet
500 mg PO Q6HPRN PRN (Reason: mild pain)
lorazepam 1 mg tablet
1 mg PO TID
bupropion HCl [Wellbutrin SR] 150 mg Tablet Sustained-Release 12 Hr
150 mg PO BID
gabapentin 300 mg Capsule
300 mg PO BID
albuterol sulfate 90 mcg/actuation Hfa Aerosol Inhaler
2 puff INHALATION R Q6HPRN PRN (Reason: sob)
lisinopril 40 mg Tablet
40 mg PO DAILY
insulin lispro protamin-lispro [Humalog Mix 75-25 KwikPen] 100 unit/mL (75-25) insulin pen
0 unit SC AC
Patient Comments:
07/09/24: Sliding scale dependent on blood sugar.
DAPTOmycin [Cubicin] 800 MG
Syringe [Syringe-Pump] 0 ML
As Directed mls/hr IV Q48H
Reason for use: Infection
Ordered By: Rafa Bee DO, Resident
Last Taken: 07/31/24
Discontinued
carvedilol 3.125 mg Tablet
3.125 mg PO BID
ibuprofen [Advil] 200 mg Tablet
400 mg PO Q6HPRN PRN (Reason: mild pain)
Discharge Orders:
Discharge Patient (As Directed); Ordered 08/02/24
Ordered By: Rafa Bee
Discharge Date and Time
Print Language: [place]
--- NOTE | 2024-08-04 09:50 | W.HF.CON ---
Heart Failure
- LV Function
Left ventricular function study result: LV Ejection fraction >/= 50% (ECHO 07/10/24)
Ejection Fraction Percentage: 60-65
- ARNI
Patient already on ARNI: No
Heart Failure ARNI Not Indicated: LV Ejection Fraction >/= 40%
- ACEI/ARB
Patient already on ACEI/ARB: Yes
- Beta Bonita
Patient already on Evidence Based Beta Bonita: Yes
- Mineralocorticord Receptor Antagonist
Patient already on MRA: No
Heart Failure MRA Not Indicated: LV Ejection Fraction > 40%
- SGLT-2 Inhibitor
Patient already on SGLT-2 Inhibitor: No
Heart Failure SGLT-2 Inhibitor Not Indicated: LV Ejection Fraction >40%
- NYHA CHF Classification
NYHA CHF Classification Level: Class III - Symptoms w/ min exertion, interferes w/ nml daily activity
- ACC/AHA Stage
ACC/AHA Stage: Stage C: Symptomatic Heart Failure
== END 2024-08-02 16:48 | disposition home health service (06) | DRG 291 ==
LOC: 2 NORTH 17:40
PROVIDERS: Nurse Practitioner; ADMITTING PHYSICIAN Internal Medicine; EMERGENCY PHYSICIAN Emergency Medicine; FAMILY PHYSICIAN Internal Medicine; OTHER PHYSICIAN Internal Medicine; OTHER PHYSICIAN Specialist
PROC: 30243N1 Transfusion of Nonautologous Red Blood Cells into Central Vein, Percutaneous Approach (ICD-10-PCS; 2024-08-02)
DX: I13.0 Hypertensive heart and chronic kidney disease with heart failure and stage 1 through stage 4 chronic kidney disease, or unspecified chronic kidney disease (principal); I50.33 Acute on chronic diastolic (congestive) heart failure; N18.4 Chronic kidney disease, stage 4 (severe); N17.9 Acute kidney failure, unspecified; E87.20 Acidosis, unspecified; R78.81 Bacteremia; E11.22 Type 2 diabetes mellitus with diabetic chronic kidney disease; E11.42 Type 2 diabetes mellitus with diabetic polyneuropathy; F41.9 Anxiety disorder, unspecified; B95.62 Methicillin resistant Staphylococcus aureus infection as the cause of diseases classified elsewhere; D63.1 Anemia in chronic kidney disease; F32.A Depression, unspecified; E78.00 Pure hypercholesterolemia, unspecified; M79.89 Other specified soft tissue disorders; M51.369 Other intervertebral disc degeneration, lumbar region without mention of lumbar back pain or lower extremity pain; Z89.422 Acquired absence of other left toe(s); Z79.4 Long term (current) use of insulin; Z86.14 Personal history of Methicillin resistant Staphylococcus aureus infection
CPT/HCPCS: 36591; 71045; 80053; 80061; 82728; 82962; 83540; 83550; 83735; 83880; 84484; 85025; 85027; 86850; 86900; 86901; 86920; 93005; 96365; 96374; 97116; 97161; 97166; 99285; J0878; P9016

== ENCOUNTER 2024-08-04 15:16 | Inpatient (IN) | payer MEDICARE, OTHER, SELFPAY ==
[2024-08-04] VITALS (13 sets, daily range): BP systolic 126–157; BP diastolic 58–79; BMI 23.7; BMI 23.4
--- NOTE | 2024-08-04 08:59 | ED.GENMED ---
History of Present Illness
General
Chief Complaint: Chest Pain
Source: patient and records
Time Seen by Provider: 08/04/24 08:50
History of Present Illness
History of Present Illness:
64-year-old male with past medical history of hypertension, insulin-dependent diabetes, CHF, stage III chronic kidney disease, currently being treated for MRSA bacteremia with IV daptomycin through a right upper extremity PICC line, recent admission
to this facility for an acute on chronic CHF exacerbation as well as anemia status post 1 unit blood transfusion presenting back to the emergency department for evaluation of worsening fatigue, generalized weakness, shortness of breath with
exertional component and left-sided chest discomfort. Patient states that he felt quite well after his discharge Sunday but yesterday states that he slept for most of the day and gets very tired with any exertion including just trying to get up
to walk to the bathroom. It was noted on patient's visit here that he did have heme positive stools and a hemoglobin of 7, transfused 1 unit and was supposed to have GI contact him but due to the turnaround time has yet to receive a call from GI as
of yet. Patient denies any fevers, chills, rigors, nausea, vomiting, bowel changes or urinary symptoms, no black stools. He reports taking the medications he was discharged home with as prescribed. No other new concerns today.
Past History
Past History
ED Past Medical History: HTN, IDDM, Psychiatric (Anxiety) and Other (Low back pain)
ED Past Surgical History: Orthopedic (Back surgeries) and Other (Amputation left fifth toe)
Social History
Tobacco: Non-smoker
Alcohol: Occasional
Drug: None
Personal:
Living: other (Resides with brother )
Employment: Disabled
Family History
Family History: Other (Noncontributory)
Review of Systems
Review of Systems
All Other Systems: ROS reviewed and negative except as documented in HPI and ROS
Phy Exam
Physical Exam
Physical Exam:
GENERAL: Alert , in no apparent distress
HEAD: NCAT
EYE: pale conjunctiva
NECK: Supple
ENT: o/p clr, mmm.
CARDIAC: Regular rate and rhythm, no murmur .
LUNGS: Clear breath sounds bilaterally, appears SOB with minimal exertion, mildly tachypneic, no accessory muscle use. Pulse ox between 86-88% RA, placed on 2L NC
CHEST WALL: tenderness over left lateral breast but no focal bony rib ttp
ABDOMEN: Soft, without focal tenderness, no r/g, no cvat
NEUROLOGICAL: Alert and oriented
SKIN: Warm and dry, skin intact.
MUSCULOSKELETAL: b/l trace ankle edema,
PSYCH: Normal and appropriate interaction.
Scores
Heart Failure Risk
Heart Failure Risk Score: Not Applicable
Heart Score for Chest Pain Patients
STEMI patient?: No
History: Slightly or Non-Suspicious
ECG: Normal
Age: >45 - <65 years
Risk Factors: 1 or 2 Risk Factors
Troponin: </= Normal Limit
Heart Score for Chest Pain Patients: 2
Heart Score Risk: 2.5% MACE over next 6 weeks
Withdrawal Assessment of Alcohol
Withdrawal Assessment Completed?: Not applicable
Course
Orders/Labs/Results
Orders:
Orders
08/04/24 08:43
Electrocardiogram (*1) Urgent
Reason for Study: Chest Pain
08/04/24 08:44
EKG- Treatment ONCE
08/04/24 08:59
CR Chest - 2 Views Urgent
Comment:
Reason For Exam: worsening SOB, chest discomfort
08/04/24 09:02
Type+Screen Urgent
Complete Blood Count/With Diff Urgent
Comprehensive Metabolic Panel Urgent
PTT Urgent
Pro-BNP [NT-proBNP] Urgent
Prothrombin Time Urgent
Troponin I Urgent
08/04/24 09:44
CefTRIAXone [Rocephin] 1,000 mg IV NOW STA
Doxycycline [Vibramycin] 100 mg PO NOW STA
08/04/24 09:59
Furosemide [Lasix] 80 mg IV NOW STA
Abnormal Lab Results
08/04/24
09:02
WBC 10.9 H 10^3/uL
(4.8-10.8)
RBC 2.96 L 10^6/uL
(4.70-6.10)
Hgb 8.2 L g/dL
(13.0-18.0)
Hct 26.0 L %
(39.0-52.0)
MCHC 31.5 L g/dL
(33.0-37.0)
RDW 15.8 H %
(11.5-14.5)
Abs Immat Gran (auto) 0.1 H 10^3/uL
(0-0.05)
Absolute Neuts (auto) 9.2 H 10^3/uL
(1.4-6.5)
Absolute Lymphs (auto) 0.4 L 10^3/uL
(1.2-3.4)
Absolute Monos (auto) 0.7 H 10^3/uL
(0.1-0.6)
Immature Gran % 0.8 H %
(0-0.5)
Neutrophils % 84.9 H %
(42.2-75.2)
Lymphocytes % 4.0 L %
(20.5-51.1)
PT 16.8 H Sec
(11.4-14.6)
Chloride 108 H mmol/L
(98-107)
Carbon Dioxide 16 L mmol/L
(22-30)
BUN 69 H mg/dl
(9-20)
Creatinine 3.3 H mg/dL
(0.7-1.3)
Glucose 166 H mg/dl
(70-99)
Alkaline Phosphatase 163 H U/L
(38-126)
Albumin 3.2 L g/dl
(3.5-5.0)
08/04/24 09:02
08/04/24 09:02
Vital Signs
Initial and Last Documented VS:
Initial Vital Signs
Temp Pulse Resp BP Pulse Ox
98.0 F 86 18 152/73 88
08/04/24 08:41 08/04/24 08:41 08/04/24 08:41 08/04/24 08:41 08/04/24 08:41
Last Documented Vital Signs
Temp Pulse Resp BP Pulse Ox
98.0 F 72 23 131/58 94
08/04/24 08:41 08/04/24 11:30 08/04/24 11:30 08/04/24 11:00 08/04/24 11:15
MDM/Problems Addressed
Differential Diagnosis Includes:
recurring anemia needing further transfusion, CHF, pneumonia, PE considered given patient did have recent surgery to left foot for osteomyelitis, musculoskeletal chest wall pain
MDM/Problems Addressed:
64-year-old chronically ill male presenting to the emergency department for evaluation of fatigue/generalized weakness, exertional shortness of breath and chest pain. Recently admitted for CHF exacerbation, developed a hemoglobin that dropped to 7
requiring 1 unit packed red blood cells, noted to have heme positive stool at that time and was recommended to follow-up with GI. Today patient states while he felt better upon his discharge started to feel quite unwell again yesterday with
symptoms worse today. He does have noted hypoxia here, placed on 2 L nasal cannula. Based off presentation I have higher degree of suspicion for recurring anemia as cause of symptoms. Will recheck labs and given his hypoxia combined with his
chronic medical conditions patient may require readmission for further treatment.
Chronic conditions affecting care: Kidney disease and Other (CHF)
*Radiology
Radiology exam reviewed: preliminary read by ED provider (pulmonary edema) and radiology read reviewed
*Pulse Oximetry
Patient hypoxic: yes
*[employer]otions Executive Producer Interpretation
Rate: normal
Rhythm: sinus
*Critical Care Note
Total Time (30-74mins, 75-104mins- exclusive of procedures): Not Applicable
Data Reviewed
Review of Other/Old Records Reveals: Labs, Records and Discharge Summary
Patient Management
Discussion with other providers: Hospitalist
Escalation/DeEscalation of care consider admission/obs:
Patient's chest x-ray shows worsening pulmonary edema and possibly early development of a left lower lobe pneumonia. Patient does have a new leukocytosis of nearly 11,000 as well as his BNP is nearly doubled from what it was when he was admitted 4
days ago. Given his hypoxia and worsening respiratory status I do not feel patient can be safely discharged home and will admit for further diuresis and antibiotics. Hospitalist team is aware and accepts for continued evaluation and treatment.
ED Attending Note
-
Portions of this chart may have been created with voice recognition software.� Occasional wrong word or��sound alike� substitutions may have occurred due to the inherent limitations of voice recognition software.
Discharge Plan
Departure
Patient Disposition: Admit
Date of Disposition: 08/04/24
Time of Disposition: 10:01
Presentation/result/management discussed w/ accepting MD/: Hospitalist
Discharge Problem:
Acute exacerbation of CHF (congestive heart failure), Anemia, Pneumonia
Prescriptions:
No Action
lorazepam 1 mg tablet
1 mg PO TID
bupropion HCl [Wellbutrin SR] 150 mg Tablet Sustained-Release 12 Hr
150 mg PO BID
gabapentin 300 mg Capsule
300 mg PO BID
lisinopril 40 mg Tablet
40 mg PO DAILY
insulin lispro protamin-lispro [Humalog Mix 75-25 KwikPen] 100 unit/mL (75-25) insulin pen
0 unit SC AC
DAPTOmycin [Cubicin] 800 MG
Syringe [Syringe-Pump] 0 ML
As Directed mls/hr IV Q48H
Reason for use: Infection
Ordered By: Rafa Bee DO, Resident
Last Taken: Unknown
furosemide [Lasix] 40 mg tablet
40 mg PO MOWEFR@0800
carvedilol 6.25 mg tablet
6.25 mg PO BID
Referrals:
Nik Dumont MD [Family Provider] -
Interventions
Interventions:
*Risk Screen - Suicide Last Done: 08/04/24 08:41
*General Assessment Last Done: 08/04/24 08:41
*Neglect/Abuse Screening Last Done: 08/04/24 08:41
ED- Fall Risk Assessment Last Done: 08/04/24 08:54
*ED COVID-19 Vaccine History Last Done: 08/04/24 08:54
ED- Cardiac Assessment Last Done: 08/04/24 08:54
Discharge Date and Time
Print Language: BELIZEAN
[2024-08-04 09:23] LABS: % Basophils 0.3 % (0-2); % Eosinophils 3.6 % (0-6); % Immature Granulocytes 0.8 % (0-0.5); % Monocytes 6.4 % (1.7-9.3); % Neutrophils 84.9 % (42.2-75.2); Absolute Eosinophils 0.4 10^3/uL (0-0.7); Absolute Immature Granulocytes 0.1 10^3/uL (0-0.05); Absolute Lymphocytes 0.4 10^3/uL (1.2-3.4); Absolute Monocytes 0.7 10^3/uL (0.1-0.6); Absolute Neutrophils 9.2 10^3/uL (1.4-6.5); Hemoglobin 8.2 g/dL (13.0-18.0); Mean Corp Hgb Conc. 31.5 g/dL (33.0-37.0); Mean Corpuscular Hgb 27.7 pg (27.0-31.0); Mean Corpuscular Volume 87.8 fL (80.0-94.0); Mean Platelet Volume 9.6 fL (7.4-10.4); Nucleated Red Blood Cells % 0 % (-); Platelet Count 219 10^3/uL (130-400); Red Blood Cell Count 2.96 10^6/uL (4.70-6.10); Red Cell Dist. Width 15.8 % (11.5-14.5); White Blood Cell Count 10.9 10^3/uL (4.8-10.8)
[2024-08-04 09:33] LABS: INR 1.33; PT 16.8 Sec (11.4-14.6)
[2024-08-04 09:34] LABS: APTT 28.4 Sec (23.4-35.0)
[2024-08-04 09:36] LABS: ALT (SGPT) 22 U/L (0-50); AST (SGOT) 17 U/L (17-59); Albumin 3.2 g/dl (3.5-5.0); Alkaline Phosphatase 163 U/L (38-126); Blood Urea Nitrogen 69 mg/dl (9-20); Calcium 8.4 mg/dl (8.4-10.2); Carbon Dioxide 16 mmol/L (22-30); Chloride 108 mmol/L (98-107); Estimated Creatinine Clearance 27 ml/min; Glucose 166 mg/dl (70-99); Potassium 4.6 mmol/L (3.5-5.1); Sodium 140 mmol/L (135-145); Total Bilirubin 0.8 mg/dl (0.2-1.3); Total Protein 6.4 g/dl (6.3-8.2); eGFR 20.18
--- NOTE | 2024-08-04 09:38 | PHANOTE ---
med rec note- patient stated he suppose to be on salt tablet, unable to find in ecw or pharmacy records. unable to find in discharge paperwork. patient has not started taking them
[2024-08-04 09:47] LABS: NT-proBNP 23900 pg/ml; Troponin I 0.028 ng/ml
[2024-08-04] MEDS: VIBRAMYCIN 100 MG PO (10:06)
[2024-08-04] MEDS: ROCEPHIN 1000 MG IV (10:07)
[2024-08-04] MEDS: LASIX 80 MG IV (10:10)
--- NOTE | 2024-08-04 12:13 | CM ---
CM reviewed chart. Patient was recently discharged on 08/02/24, 2 days ago. Here, again, for fluid overload. Was also discharged on 07/23. Has a DELANEY PICC line. Receiving daptomycin at outpatient infusion. Also receiving [facility] services for his
wound. Independent with cane. Home with brother. Lives in multi-level home. 2 steps to enter into home. Independent with a cane. Retired. No +SDOHs. Has an active PCP. Uses [facility] as his pharmacy. He drove himself into the hospital. 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
Justyna, from [facility], called for an update of patient.
ANTICIPATED DISCHARGE DISPO: Discharge to home with IV abxs and [facility], (if they are still needed), when medically cleared.
--- NOTE | 2024-08-04 15:06 | W.CON.NEPH ---
Consultation
-
Date/Time Consultation Requested: 08/04/24 1500
Date/Time Consultation Performed: 08/04/24 1530
Requesting Provider: Prashant Baird
Performing Provider: Nicky Hussein
Reason for Consultation: IVY with CKD
Medical History
-
Chief Complaint: CP, SOB
History of Present Illness:
The patient is a 63-year-old male with chronic kidney disease cr more recently at 2.9 biopsy confirmed Diabetic nephropathy. He has a history of hypertension which has been controlled on the combinations of his carvedilol and lisinopril. He has
longstanding diabetes maintained chronically on insulin and has microvascular complications including diabetic neuropathy, nephropathy. Who presents today with SOB mainly on exertion and CP when coughing, found hypoxic O2 sat 89%. Pt was discharged
2dasy ago after treating CHF and anemia requiring PRBC, IVY started on lasix MWF, cr at d/c was at 2.9. Prior to this admit pt had prolonged admit from Jul 09 to Jul and was treated for foot infection/OM s/p I&D and 4th toe amputation. During
this admit his cr increased with nephrotic range proteinuria and PR3+ve hence underwent K biopsy which essentially revealed D nephropathy, cr was in high 2 range at d/c. Since this admit he is on Daptomycin for total 6weeks for MRSA bacteremia.
Today his cr is up again at 3.3, bicarb 16 and CXR shows CHF and can not r/o PNA hence nephrology consulted. NOte he recieved 1 unit of RBC last admit for Anemia and hb of 7. Reportedly heme stool was +ve, suppose to have out pt GI f/u. Hb today at
8.2. He reprots cough, feeling cold. No fever. Fatigue+. No n/v or diarrhea. No orthopnea. Reports compliance with diet and FR.
Past Medical History
DM II, biopsy-proven diabetic nephropathy
Hypertension
CKD 3g (1.6)
Lumbar DDD
Peripheral Neuropathy
Anxiety
Depression
DCHF
Past Surgical History: Other (Lumbar discectomy with fusion Cholecystectomy Left foot 4th and 5th metatarsal amputation)
Social History
Tobacco: Non-Smoker
Alcohol: None
Drug: None
Family History
no CKD
Family History: Not Pertinent
Allergies / Home Medications
Allergy/AdvReac Type Severity Reaction Status Date / Time
No Known Allergies Allergy Verified 08/04/24 08:40
�Medication �Instructions �Recorded �Confirmed �Type
bupropion HCl 150 mg tablet,12 hr 150 mg PO BID Depression 11/11/23 08/04/24 History
sustained-release (Wellbutrin SR)
lorazepam 1 mg tablet 1 mg PO TID Anxiety 11/11/23 08/04/24 History
gabapentin 300 mg capsule 300 mg PO BID pain 07/09/24 08/04/24 History
insulin lispro protamine-lispro 0 unit SC AC Diabetes 07/09/24 08/04/24 History
100 unit/mL (75-25) subcutaneous
pen (Humalog Mix 75-25 KwikPen)
lisinopril 40 mg tablet 40 mg PO DAILY Blood Pressure 07/09/24 08/04/24 History
DAPTOmycin [Cubicin] 800 mg As Directed mls/hr IV Q48H 07/23/24 08/04/24 Rx
Infection
carvedilol 6.25 mg tablet 6.25 mg PO BID Heart Disease/BP 08/04/24 08/04/24 History
furosemide 40 mg tablet (Lasix) 40 mg PO MOWEFR@0800 Fluid 08/04/24 08/04/24 History
Retention/Swelling
Review of Systems
-
All complete 12 point ROS have been inquired and found negative other than stated in HPI
Physical Exam
Vital Signs
Vital Signs
Temp Pulse Resp BP Pulse Ox
98.0 F 76 15 136/75 94
08/04/24 08:41 08/04/24 14:15 08/04/24 14:15 08/04/24 14:00 08/04/24 14:15
Lab Results
WBC 10.9 10^3/uL (4.8-10.8) H 08/04/24 09:02
RBC 2.96 10^6/uL (4.70-6.10) L 08/04/24 09:02
Hgb 8.2 g/dL (13.0-18.0) L 08/04/24 09:02
Hct 26.0 % (39.0-52.0) L 08/04/24 09:02
Plt Count 219 10^3/uL (130-400) 08/04/24 09:02
Sodium 140 mmol/L (135-145) 08/04/24 09:02
Potassium 4.6 mmol/L (3.5-5.1) 08/04/24 09:02
Chloride 108 mmol/L (98-107) H 08/04/24 09:02
Carbon Dioxide 16 mmol/L (22-30) L 08/04/24 09:02
BUN 69 mg/dl (9-20) H 08/04/24 09:02
Creatinine 3.3 mg/dL (0.7-1.3) H 08/04/24 09:02
eGFR 20.18 08/04/24 09:02
Glucose 166 mg/dl (70-99) H 08/04/24 09:02
Calcium 8.4 mg/dl (8.4-10.2) 08/04/24 09:02
Pcw-I-Ottdjhtetaz Pept 00937 pg/ml 08/04/24 09:02
Albumin 3.2 g/dl (3.5-5.0) L 08/04/24 09:02
CXR:
IMPRESSION:
Mild pulmonary edema likely progressed on the left and improved on the right. Cannot rule out developing left-sided pneumonia.
Physical Exam
General: Awake, Alert, Oriented, AOx3, No Distress and Nontoxic
HEENT: EOMI, Anicteric and Facial Symmetry
Respiratory: Clear, Normal Excursion, Nonlabored Respirations and Other (coarse BS)
Cardiac: S1/S2 and Regular Rate/Rhythm
Breast: Deferred by me
Abdomen: Soft, Nontender and Nondistended
Musculoskeletal: No Cyanosis and Edema (1+)
Skin: No Rash
Neuro: Nonfocal/Grossly Intact
Psych: Mood/afflect pleasant, Insight/judgement good and Appropriate
Data Reviewed
-
Radiology: Report Reviewed by me and Discussed with Patient
Labs: Labs Reviewed by me and Discussed with Patient
Assessment/Plan
-
Impression:
CKD4 baseline 2.9
Metabolic acidosis
Edema
DCHF
Left Foot osteomyelitis
HTN
+PR3 Ab
Nephrotic range proteinuria of 5 g, biopsy-proven diabetic nephropathy
07/21/24: K biopsy nodular D nephropathy
IFTA mod to severe
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
Plan:
Recent multiple admits come back with CHF again
IVY-suspect cardiorenal however had advanced CKD underlying too
would cont lasix 60mg IV BID
maintain FR 48ounces/day
follow daily wts
Continue antibiotics for osteomyelitis
BP stable, hold lisinopril , low threshold to resume with proteinuria
follow h/h, will give IV fe course for Fe sat 10%
heme stool +ve last admit
met acidosis-add po bicarb
Reviewed with pt in detail that he is at risk of progressive CKD and high risk of dialysis in future-he understands
no emergent indication of HD at this time
--- NOTE | 2024-08-04 15:13 | HPS.HSE ---
Family Physician
-
Family Physician: Nik Dumont
Chief Complaint
-
Redness of breath and mild nonproductive cough
History of Present Illness
Patient is a 64-year-old male with extensive list of comorbidities including CHF preserved EF, progressive CKD with nephrotic range proteinuria, type 2 diabetes, chronic anemia, left foot osteomyelitis on IV daptomycin who was discharged 2 days ago
after admission for CHF when patient was diuresed and transition to oral Lasix. At that time his Coreg dose was increased, patient was continued on JOSE inhibitor. In addition given trending down hemoglobin he received 1 unit of packed red blood
cells with hemoglobin improved to 8. Since discharge patient feeling with increased shortness of breath and severe exertional dyspnea, mild nonproductive cough. He was instructed to resume Lasix at 40 mg Sunday next dose would be
tomorrow. His last dose was on Sunday before discharge. He denies any fever and chills.
In the emergency room patient found to be hypoxic with pulse ox down to 89%. Additional data with chest x-ray consistent with pulmonary edema, pro CHF doubled, creatinine increased to 3.3.
Patient was given dose of IV Lasix 80 mg.
With concern for possible pneumonia with elevated white count and asymmetric pulmonary infiltrates given dose of ceftriaxone and Zithromax.
Medical History
Past Medical History
Past Medical History: Reports CHF, IDDM and Other (CKD, chronic anemia, left foot osteomyelitis)
Past Surgical History: Reports Other (Podiatry)
Social History
Tobacco: Non-smoker
Alcohol: None
Drug: None
Living: With Family
Family History
Family History: Not pertinent
Allergies / Home Medications
Allergies reflects when Allergies were last updated in [facility].
Home Medications with original date entered in [facility]
Allergy/Medication List:
Allergies
Allergy/AdvReac Type Severity Reaction Status Date / Time
No Known Allergies Allergy Verified 08/04/24 08:40
Home Medications
bupropion HCl 150 mg tablet,12 hr sustained-release (Wellbutrin SR) 150 mg PO BID Depression 11/11/23
lorazepam 1 mg tablet 1 mg PO TID Anxiety 11/11/23
gabapentin 300 mg capsule 300 mg PO BID pain 07/09/24
insulin lispro protamine-lispro 100 unit/mL (75-25) subcutaneous pen (Humalog Mix 75-25 KwikPen) 0 unit SC AC Diabetes 07/09/24
lisinopril 40 mg tablet 40 mg PO DAILY Blood Pressure 07/09/24
DAPTOmycin [Cubicin] 800 mg As Directed mls/hr IV Q48H Infection 07/23/24
carvedilol 6.25 mg tablet 6.25 mg PO BID Heart Disease/BP 08/04/24
furosemide 40 mg tablet (Lasix) 40 mg PO MOWEFR@0800 Fluid Retention/Swelling 08/04/24
Review of Systems
-
A 12 point ROS was completed and negative except as noted: Yes
Respiratory: Reports See HPI
Cardiac: Reports See HPI
Physical Exam
Vital Signs
Vital Signs
Temp Pulse Resp BP Pulse Ox
98.0 F 76 15 136/75 94
08/04/24 08:41 08/04/24 14:15 08/04/24 14:15 08/04/24 14:00 08/04/24 14:15
Physical Exam
General: Well Developed, Well Nourished and No Apparent Distress
HEENT: NormoCephalic, Moist mucous membranes and Atraumatic
Respiratory: Clear
Cardiac: S1/S2 and Regular Rhythm; No Murmur or Rub
GI: Soft, Non Tender, Non Distended and Normal Bowel Sounds; No Organomegaly
Rectal: Deferred by Provider
Musculoskeletal: No Clubbing, No Cyanosis and No Edema
Skin: No Rash
Neuro: Nonfocal/grossly intact
Laboratory Results
-
08/04/24 09:02
08/04/24 09:
Laboratory Results
PT 16.8 Sec (11.4-14.6) H 08/04/24 09:02
INR 1.33 08/04/24 09:02
APTT 28.4 Sec (23.4-35.0) 08/04/24 09:02
Total Bilirubin 0.8 mg/dl (0.2-1.3) 08/04/24 09:
AST 17 U/L (17-59) 08/04/24:
ALT 22 U/L (0-50) 08/04/24 09:
Alkaline Phosphatase 163 U/L (38-126) H 08/04/24:
Troponin I 0.028 ng/ml 08/04/24:
Impression/Plan
-
IMPRESSION:
Acute hypoxic respiratory insufficiency secondary to pulmonary edema
Acute CHF exacerbation preserved EF
Acute pulmonary edema
IVY on CKD 4
Other conditions:
IDDM
Nephrotic range proteinuria
Positive proteinase 3 antibodies
Hypertension
Chronic anemia
Left foot osteomyelitis treated with daptomycin
Anxiety
PLAN:
Acute hypoxic respiratory insufficiency pulse ox 89% upon presentation
Acute pulmonary edema secondary to CHF exacerbation. Preserved EF.
Echocardiogram 07/10: LVEF 60 to 65%. Mild RVE, no evidence of significant valvular disease..
Suspect CHF due to progressive CKD/IVY
IV diuresis status post Lasix 80 mg in ED. Continue Lasix 60 mg IV twice daily per
Monitor daily weight and BMP.
Continue Coreg
Cardiology consultation
Doubt acute respiratory infection/pneumonia. Chest x-ray with most likely asymmetric pulmonary edema. Hold off further antibiotics targeting respiratory infection (status post single dose of ceftriaxone/Zithromax in ED)
IVY on CKD 4
Nephrotic range proteinuria, suspect diabetic nephropathy.
Interestingly enough his positive proteinase 3 antibodies.
Metabolic acidosis noted.
Hold lisinopril.
Monitor renal function on diuretics.
Consider bicarbonate support
Nephrology evaluation
Essential hypertension
Continue Coreg, dose recently increased
Hold lisinopril given rising creatinine.
Type II/IDDM.
Most recent hemoglobin A1c dropped from 14-5.7 (07/10/2024) likely due to decreased renal clearance
Continue basal bolus protocol with serial Accu-Cheks
Chronic normocytic anemia
Hemoglobin at 8.2.
Iron studies consistent mixed picture of mild iron deficiency with anemia of chronic inflammation/CKD
Consider EPO
Consider IV if iron.
Left foot osteomyelitis
Tissue culture positive for MRSA.
Continue daptomycin 800 mg IV every 48 hours. Adjust dose to renal function.
DVT prophylaxis/heparin
Full code.
--- NOTE | 2024-08-04 15:21 | CON.CAR ---
Addendum entered and electronically signed by Meño Haque MD 08/04/24 18:36:
64 yo male with PMH of chronic HFPEF, CKD4, DM, HTN, osteomyelitis on daptomycin, recent admission for acute HFPEF. Was sent home last week on lasix M/W/F, but had not started med yet. Now returns with SOB, cough, edema. Exam with RRR, no
murmurs, 1+ LE edema. Cr 3.3. Echo 07/10: EF 60-65%, no sig valve disease.
Acute on chronic HFPEF. Starting with lasix 60mg IV bid. Will titrate to response. Nephrology has been consulted as well.
Original Note:
Consultation
Consultation Request
Date/Time Consultation Requested: 08/04/2024 15:00
Date/Time Consultation Performed: 08/04/2024 15:20
Requesting Provider: Dr. Clark
Performing Provider: KAYLA Diego for Dr. Haque
Reason for Consultation: Acute on chronic heart failure
Medical History
-
Chief Complaint: Shortness of breath, weakness
History of Present Illness:
Luis Meier is a 64-year-old male with hypertension, hyperlipidemia, type 2 diabetes mellitus with diabetic neuropathy, MRSA bacteremia with left foot osteomyelitis (on daptomycin), chronic kidney disease, and HFpEF who presented to the emergency
department with a chief complaint of weakness. He endorsed associated shortness of breath and moist nonproductive cough. During his last admission he was found to have MRSA bacteremia with left foot osteomyelitis and was started on IV daptomycin.
He was diagnosed with HFpEF in the setting of progressive CKD. He was to start furosemide 40 mg Sunday/Sunday/Sunday. His first dose was supposed to be today. On Sunday, he woke up and felt very weak. While walking around at home he
endorsed shortness of breath. This continued to get worse over the weekend. Today he was found to have an elevated proBNP, pulmonary edema on his chest x-ray, IVY on CKD, and hypoxia. Cardiology was consulted for heart failure management. There
is a concern for pneumonia as he has leukocytosis with asymmetric pulmonary infiltrates.
Past Medical History
Past Medical History: CHF (HFpEF), HTN, Hypercholesterolemia, NIDDM, Renal Failure (CKD) and Other (MRSA bacteremia [on daptomycin])
Social History
Tobacco: Non-Smoker
Alcohol: None
Drug: None
Personal:
Living: With Family (Brother)
Employment: Retired ([employer])
Family History
Family History: Reviewed & Not Pertinent (Denies early CAD and SCD.)
Allergies / Home Medications
Allergy/AdvReac Type Severity Reaction Status Date / Time
No Known Allergies Allergy Verified 08/04/24 08:40
�Medication �Instructions �Recorded �Confirmed �Type
bupropion HCl 150 mg tablet,12 hr 150 mg PO BID Depression 11/11/23 08/04/24 History
sustained-release (Wellbutrin SR)
lorazepam 1 mg tablet 1 mg PO TID Anxiety 11/11/23 08/04/24 History
gabapentin 300 mg capsule 300 mg PO BID pain 07/09/24 08/04/24 History
insulin lispro protamine-lispro 0 unit SC AC Diabetes 07/09/24 08/04/24 History
100 unit/mL (75-25) subcutaneous
pen (Humalog Mix 75-25 KwikPen)
lisinopril 40 mg tablet 40 mg PO DAILY Blood Pressure 07/09/24 08/04/24 History
DAPTOmycin [Cubicin] 800 mg As Directed mls/hr IV Q48H 07/23/24 08/04/24 Rx
Infection
carvedilol 6.25 mg tablet 6.25 mg PO BID Heart Disease/BP 08/04/24 08/04/24 History
furosemide 40 mg tablet (Lasix) 40 mg PO MOWEFR@0800 Fluid 08/04/24 08/04/24 History
Retention/Swelling
Review of Systems
-
History Source: Patient
All other systems: Negative unless noted
Constitutional: Fatigue
EENT: No Symptoms
Respiratory: Cough and Trouble Breathing
Cardiac: No Symptoms
Abdomen/GI: No Symptoms
: No Symptoms
Musculoskeletal: No Symptoms
Skin: No Symptoms
Neurological: Weakness
Endocrine: No Symptoms
Hematologic/Lymphatic: No Symptoms
Physical Exam
Vital Signs
Temp Pulse Resp BP Pulse Ox
98.0 F 76 15 136/75 94
08/04/24 08:41 08/04/24 14:15 08/04/24 14:15 08/04/24 14:00 08/04/24 14:15
Lab Results
08/04/24 09:02
08/04/24 09:02
Troponin I 0.028 ng/ml 08/04/24 09:02
Lzz-Z-Ffzqyomgjzp Pept 77765 pg/ml 08/04/24 09:02
Physical Exam
General: Well Developed, Well Nourished and Comfortable
HEENT: Normocephalic, Anicteric and Moist Mucous Membranes
Respiratory: Crackles
Cardiac: S1/S2, Regular Rhythm and Peripheral Edema (+1 pitting LE edema)
Breast: Deferred by me
GI: Soft, Non Tender, Non Distended and Normal Bowel Sounds
Rectal: Deferred by Provider
Genito-urinary: No Costovertebral Tender
Musculoskeletal: No Clubbing and No Cyanosis
Skin: Warm and Dry
Neuro: AO x 3
Hematologic/Lymphatic: No Lymphadenopathy
Psych: Calm
Impression / Plan
-
BACKGROUND: 64M with hypertension, hyperlipidemia, type 2 diabetes mellitus with diabetic neuropathy, MRSA bacteremia with left foot osteomyelitis (on daptomycin), chronic kidney disease, and HFpEF who presented to the emergency department with
weakness and shortness of breath
Munitions Handler Supervisor: Dr. Nuñez
IMPRESSION/PLAN:
Acute hypoxic respiratory insufficiency, in the setting of acute on chronic heart failure
HFpEF, acute on chronic
-Lower extremity edema, hypoxia, with elevated proBNP and IVY
-Diuresis requires intensive monitoring given his IVY on CKD
-He has not weighed himself at home and reports significant fluid intake
-Status post furosemide 80 mg IV in the emergency room
-Heart failure education
-Trend daily weight, I's/O, and BMP with diuresis
IVY on CKD, follow with diuresis, consider nephrology consultation
Hypertension, stable, carvedilol increased last admission
Dyslipidemia, LDL above goal last admission
Type 2 diabetes mellitus, HgbA1c 14.1% in October, now 5.7%, per primary
Anemia of chronic disease
MRSA bacteremia with left foot osteomyelitis, on daptomycin
SUBJECTIVE:
ROS as above.
DATA:
Transthoracic echocardiogram, 07/10/2024:
CONCLUSIONS
1. Mild concentric LVH with EF 60-65%
2. Mild RVE
3. LAE
4. No evidence of significant valvular disease
Data Reviewed
-
EKG: Report Reviewed by me (Sinus rhythm, non specific T wave abnormality, rate 85)
Medical Tests (Nuc Med, Echo etc): Report Reviewed by me (Prior TTE as above)
Labs: Labs Reviewed by me
Old Records: Reviewed
[2024-08-04 16:45] LABS: Glucose - Point of Care 157 mg/dl (70-99)
[2024-08-04] MEDS: ATIVAN 1 MG PO ×2 (17:13→21:57)
[2024-08-04] MEDS: NOVOLOG FLEXPEN-LOW RESISTANCE 1 UNITS SC (17:17)
[2024-08-04] MEDS: LASIX 60 MG IV (17:17)
[2024-08-04] MEDS: CUBICIN 16 MG IV (17:46)
--- NOTE | 2024-08-04 18:28 | VATNOTE ---
Pt seen on routine rounds. Pt has R SL PICC that VAT was not called about to assess when pt was in the ED. Pt's PICC was placed on 07/18/24 in this hospital. CXR was done this admission, but only described as stable R PICC. This VAT RN TT golf tournament consultant
radiologist and per that MD the R PICC tip is located in the SVC. OK to use.
[2024-08-04] MEDS: HEPARIN 5000 UNITS SC (20:24)
[2024-08-04] MEDS: NEURONTIN 300 MG PO (20:24)
[2024-08-04] MEDS: SODIUM BICARBONATE 650 MG PO (20:25)
[2024-08-04] MEDS: COREG 6.25 MG PO (20:25)
[2024-08-04] MEDS: WELLBUTRIN SR (12 hour sustained release) 150 MG PO (20:25)
[2024-08-04 21:23] LABS: Glucose - Point of Care 352 mg/dl (70-99)
[2024-08-04] MEDS: TESSALON PERLES 100 MG PO (22:41)
[2024-08-04] MEDS: TYLENOL 650 MG PO (23:28)
[2024-08-05] VITALS (7 sets, daily range): BP systolic 135–150; BP diastolic 55–73; BMI 22.9
[2024-08-05 04:17] LABS: % Basophils 0.1 % (0-2); % Eosinophils 5.8 % (0-6); % Immature Granulocytes 0.4 % (0-0.5); % Lymphocytes 6.7 % (20.5-51.1); % Monocytes 6.7 % (1.7-9.3); % Neutrophils 80.3 % (42.2-75.2); Absolute Eosinophils 0.5 10^3/uL (0-0.7); Absolute Lymphocytes 0.5 10^3/uL (1.2-3.4); Absolute Monocytes 0.5 10^3/uL (0.1-0.6); Absolute Neutrophils 6.2 10^3/uL (1.4-6.5); Hematocrit 22.4 % (39.0-52.0); Hemoglobin 7.1 g/dL (13.0-18.0); Mean Corp Hgb Conc. 31.7 g/dL (33.0-37.0); Mean Corpuscular Hgb 27.8 pg (27.0-31.0); Mean Corpuscular Volume 87.8 fL (80.0-94.0); Mean Platelet Volume 9.7 fL (7.4-10.4); Nucleated Red Blood Cells % 0 % (-); Platelet Count 209 10^3/uL (130-400); Red Blood Cell Count 2.55 10^6/uL (4.70-6.10); Red Cell Dist. Width 15.9 % (11.5-14.5); White Blood Cell Count 7.7 10^3/uL (4.8-10.8)
[2024-08-05 04:41] LABS: Blood Urea Nitrogen 72 mg/dl (9-20); Calcium 8.1 mg/dl (8.4-10.2); Carbon Dioxide 18 mmol/L (22-30); Chloride 108 mmol/L (98-107); Estimated Creatinine Clearance 25 ml/min; Glucose 112 mg/dl (70-99); Potassium 4.2 mmol/L (3.5-5.1); Sodium 139 mmol/L (135-145); eGFR 18.18
[2024-08-05 07:28] LABS: Glucose - Point of Care 129 mg/dl (70-99)
[2024-08-05] MEDS: NOVOLOG FLEXPEN-LOW RESISTANCE SC (07:38)
--- NOTE | 2024-08-05 08:42 | W.PN.CD ---
Today's Communication / Plan
-
Hold lasix with rise in creatinine to 3.6
fever - temp 101 0vernight
- history of ostomyelitis and chronic daptomycin
- CXR in admit with question early PNA . Given 1 time doseof doxy and ceftriaxone in ER
- BC, Urinalysis with reflex to culture
- Covid
- management per primary team and ID
HB 7.1 consider PRBC
Impression / Plan
-
BACKGROUND: 64M with hypertension, hyperlipidemia, type 2 diabetes mellitus with diabetic neuropathy, MRSA bacteremia with left foot osteomyelitis (on daptomycin), chronic kidney disease, and HFpEF who presented to the emergency department with
weakness and shortness of breath
Audiometrist: Dr. Nuñez
IMPRESSION/PLAN:
Acute hypoxic respiratory insufficiency, in the setting of acute on chronic heart failure
HFpEF, acute on chronic
-Lower extremity edema, hypoxia, with elevated proBNP and IVY
-Diuresis requires intensive monitoring given his IVY on CKD
-weight has trended down . i/o -1500 last 24 hours. creatinine up to 3.6. Hold diuretic
fever - temp 101 0vernight
- history of ostomyelitis and chronic daptomycin
- CXR in admit with question early PNA . Given 1 time doseof doxy and ceftriaxone in ER
- BC, Urinalysis with reflex to culture
- Covid
- management per primary team and ID
anemia
IVY on CKD, follow with diuresis, consider nephrology consultation
Hypertension, stable,
Dyslipidemia, LDL above goal last admission
Type 2 diabetes mellitus, Tx per primary team
Anemia of chronic disease
MRSA bacteremia with left foot osteomyelitis, on daptomycin
SUBJECTIVE:
ROS as above.
DATA:
Transthoracic echocardiogram, 07/10/2024:
CONCLUSIONS
1. Mild concentric LVH with EF 60-65%
2. Mild RVE
3. LAE
4. No evidence of significant valvular disease
Physical Exam
Vital Signs/Labs
Vital Signs
Temp Pulse Resp BP Pulse Ox
100.1 F 88 18 150/70 96
08/05/24 08:13 08/05/24 08:13 08/05/24 08:13 08/05/24 08:13 08/05/24 08:13
08/04/24 08/05/24 08/06/24
06:59 06:59 06:59
Actual Weight 83.007 kg
08/05/24 03:49
08/05/24 03:49
PT 16.8 Sec (11.4-14.6) H 08/04/24 09:02
INR 1.33 08/04/24 09:02
APTT 28.4 Sec (23.4-35.0) 08/04/24 09:02
08/04/24
09:02
Wzh-J-Laamawwfmum Pept [id number]
LAB Results
08/04/24
09:02
Troponin I 0.028
Physical Exam
Constitutional: No acute distress and Other (remains on )
Data Reviewed
-
Date of Service: August 05, 2024
Medical Decision Making: Review of Case with other Provider (nurse and Dr Clark)
Medical Tests (PFT, Pathology etc): Report Reviewed by me
Labs: Labs Reviewed by me
[2024-08-05] MEDS: HEPARIN 5000 UNITS SC ×2 (08:57→20:06)
[2024-08-05] MEDS: ATIVAN 1 MG PO ×3 (08:57→21:58)
[2024-08-05] MEDS: WELLBUTRIN SR (12 hour sustained release) 150 MG PO ×2 (08:57→20:06)
[2024-08-05] MEDS: SODIUM BICARBONATE 650 MG PO ×2 (08:57→20:07)
[2024-08-05] MEDS: NEURONTIN 300 MG PO ×2 (08:57→20:06)
[2024-08-05] MEDS: COREG 6.25 MG PO ×2 (08:57→20:06)
[2024-08-05] MEDS: TESSALON PERLES 100 MG PO ×2 (09:03→17:32)
[2024-08-05] MEDS: LASIX IV (09:17)
[2024-08-05 09:20] LABS: COVID-19 Antigen Positive (Negative)
[2024-08-05 10:06] LABS: Urine Albumin 2+ (Neg - Trace); Urine Bilirubin Negative (Negative); Urine Character Clear (Clear); Urine Color Yellow; Urine Glucose Negative (Negative); Urine Ketone Negative (Negative); Urine Leukocyte Negative (Negative); Urine Nitrite Negative (Negative); Urine Occult Blood 1+ (Negative); Urine Specific Gravity 1.015 (<1.030); Urine Urobilinogen Negative (Neg - 1+)
[2024-08-05 10:48] LABS: Urine Urothelial Cell 0-2 /LPF (FEW)
[2024-08-05] MEDS: TYLENOL 650 MG PO ×2 (10:49→20:24)
[2024-08-05 10:50] LABS: Urine Bacteria Few (Negative)
[2024-08-05 10:55] LABS: Urine Sodium 75 mmol/L (30-90)
--- NOTE | 2024-08-05 11:48 | WOUNDNOTE ---
L LATERAL FOOT/AMP SITE
--- NOTE | 2024-08-05 11:52 | WOUNDNOTE ---
SHAYAN RN note: Patient admitted with CHF and COVID.
See H&P for complete history.
PMH:IDDM, neuropathy, anxiety, back surgery 3 x with rods. L 5th toe amp done 07/17/24-Dr. Valenzuela.
Wound Location and type/assessment: L 5th toe amp site last seen 08/01, sutures remain intact, no drainage or odor. distal to sutures small chronic open area, scant drainage no odor. Plantar foot with dry intact callus. Offloading shoe at bedside. +
palpable pedal pulses, wound improved and edema less in L foot. Turns self in bed, sacrum and heels are intact.
Appetite: Good,encouraged protein in diet.
Pressure redistribution devices in place: On Accumax bed, able to turn self in bed. Pressure ulcer prevention measures reviewed with patient, states he understands.
Plan: Continue per Podiatry, adaptic, dry dressing and jim wrap. Dressing changed today. Updated nurse and
care plan, will follow as needed.
Note to case management of equipment requested for discharge: VN
Recommend follow up with Global Sourcing Manager.
--- NOTE | 2024-08-05 12:02 | W.PN.NEPH.PH ---
Today's Communication / Plan
-
hold diuretics and follow labs
Assessment/Plan
-
Impression:
COVID
CKD4 baseline 2.9
Metabolic acidosis
Anemia
Edema
Acute on chr DCHF
Left Foot osteomyelitis
HTN
+PR3 Ab
Nephrotic range proteinuria of 5 g, biopsy-proven diabetic nephropathy
07/21/24: K biopsy nodular D nephropathy
IFTA mod to severe
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
Plan:
IVY-suspect prerenal/cardiorenal however had advanced CKD underlying too
cr is up today and net neg balance, hold lasix
COVID +ve, febrile over night
cont po bicarb for met acidosis
maintain FR 48ounces/day
follow daily wts
Continue antibiotics for osteomyelitis, ?PNA
BP stable, hold lisinopril
follow h/h, IV fe course for Fe sat 10%, prn transfusion, likely give HARVINDER once Fe repleted
heme stool +ve last admit
Reviewed with pt in detail that he is at risk of progressive CKD and high risk of dialysis in future-he understands
no emergent indication of HD at this time
-
-
Date of Service: August 05, 2024
CC / HPI / ROS
-
Chief Complaint:
IVY with CKD
History of Present Illness:
cr is up at 3.6, non oliguric
wt is down
BP stable
hb low 7.1, febrile overnight
COVID +ve this am
Review of Systems:
still with cough-dry
no cp. sob no change
left foot looks good-healed well
Labs
-
Labs:
WBC 7.7 10^3/uL (4.8-10.8) 08/05/24 03:49
RBC 2.55 10^6/uL (4.70-6.10) L 08/05/24 03:49
Hgb 7.1 g/dL (13.0-18.0) L 08/05/24 03:49
Hct 22.4 % (39.0-52.0) L 08/05/24 03:49
Plt Count 209 10^3/uL (130-400) 08/05/24 03:49
Sodium 139 mmol/L (135-145) 08/05/24 03:49
Potassium 4.2 mmol/L (3.5-5.1) 08/05/24 03:49
Chloride 108 mmol/L (98-107) H 08/05/24 03:49
Carbon Dioxide 18 mmol/L (22-30) L 08/05/24 03:49
BUN 72 mg/dl (9-20) H 08/05/24 03:49
Creatinine 3.6 mg/dL (0.7-1.3) H 08/05/24 03:49
eGFR 18.18 08/05/24 03:49
Glucose 112 mg/dl (70-99) H 08/05/24 03:49
Calcium 8.1 mg/dl (8.4-10.2) L 08/05/24 03:49
Aqk-N-Tsghytkltcd Pept [id number] pg/ml 08/04/24 09:02
Albumin 3.2 g/dl (3.5-5.0) L 08/04/24 09:02
Physical Exam
-
Vital Signs:
Vital Signs
Temp Pulse Resp BP Pulse Ox
100.1 F 80 17 148/68 98
08/05/24 11:00 08/05/24 11:00 08/05/24 11:00 08/05/24 11:00 08/05/24 11:00
Cardiovascular:: Regular rate and rhythm
Respiratory:: Bilateral: CTA
Lung Excursion:: Normal
Abdomen:: Nontender and Soft
Extremity Edema:: +1: Bilateral: (trace)
[place] Catheter: No
[2024-08-05 12:19] LABS: Glucose - Point of Care 166 mg/dl (70-99)
--- NOTE | 2024-08-05 13:43 | W.PN.HOSP.TC ---
Addendum entered and electronically signed by Prashant Clark MD 08/05/24 14:52:
Will start corticosteroids/Decadron 6 mg daily for 5 to 7 days in addition to molnupiravir.
Original Note:
Today's Communication/Plan
-
Respiratory isolation
Consider molnupiravir
Hold Lasix due to creatinine bump and monitor renal function closely.
IV iron
Transfuse to keep hemoglobin above 8
Daptomycin as per ID
Assessment / Plan
Assessment / Plan
IMPRESSION:
Acute hypoxic respiratory insufficiency secondary to pulmonary edema
Acute CHF exacerbation preserved EF
Acute pulmonary edema
IVY on CKD 4
COVID-positive bronchitis/possible viral pneumonia.
Other conditions:
IDDM
Nephrotic range proteinuria
Positive proteinase 3 antibodies
Hypertension
Chronic anemia
Left foot osteomyelitis treated with daptomycin
Anxiety
PLAN:
Acute hypoxic respiratory insufficiency pulse ox 89% upon presentation
Likely multifactorial in settings of CHF and possibly COVID bronchitis/pneumonia.
Acute pulmonary edema secondary to CHF exacerbation. Preserved EF.
Echocardiogram 07/10: LVEF 60 to 65%. Mild RVE, no evidence of significant valvular disease..
Suspect CHF with cardiorenal state and due to progressive CKD/IVY
IV diuresis status post Lasix 80 mg in ED. Continue Lasix 60 mg IV twice daily. Creatinine bumped to 3.6. Hold further diuresis and monitor.
Monitor daily weight and BMP.
Continue Coreg
Cardiology consultation
COVID-positive.
Febrile.
Chest x-ray with asymmetric interstitial infiltrate possibly combination of pulmonary edema and viral pneumonia.
Consider molnupiravir
IVY on CKD 4
Nephrotic range proteinuria, suspect diabetic nephropathy.
Interestingly enough his positive proteinase 3 antibodies.
Metabolic acidosis noted.
Hold lisinopril.
Follow renal function
Oral bicarbonate
Treat anemia
Nephrology input appreciated
Essential hypertension
Continue Coreg, dose recently increased
Hold lisinopril given rising creatinine.
Type II/IDDM.
Most recent hemoglobin A1c dropped from 14-5.7 (07/10/2024) likely due to decreased renal clearance
Continue basal bolus protocol with serial Accu-Cheks
Chronic normocytic anemia
Hemoglobin at 8.2 trending down to sevens
Reported with heme positive stool
Iron studies consistent mixed picture of mild iron deficiency with anemia of chronic inflammation/CKD
Transfuse to keep hemoglobin above 8
IV iron
Neupogen
Left foot osteomyelitis status post left fifth toe amputation
Tissue culture positive for MRSA.
Continue daptomycin 800 mg IV every 48 hours. Adjust dose to renal function.
ID following up
DVT prophylaxis/heparin
Full code.
Anticipated Discharge: > 48 hours
Subjective/Interval History
-
Date of Service: August 05, 2024
Objective Data
-
Labs:
Laboratory Results
08/05/24
03:49
WBC 7.7
Hgb 7.1 L
Hct 22.4 L
Plt Count 209
Sodium 139
Potassium 4.2
Chloride 108 H
Carbon Dioxide 18 L
BUN 72 H
Creatinine 3.6 H
Glucose 112 H
Calcium 8.1 L
Vital Signs:
Vital Signs
Temp Pulse Resp BP Pulse Ox
100.1 F 80 17 148/68 98
08/05/24 11:00 08/05/24 11:00 08/05/24 11:00 08/05/24 11:00 08/05/24 11:00
I&O
08/04/24 08/05/24 08/06/24
06:59 06:59 06:59
Intake Total 360 / 360
Output Total 1924 / 1924
Balance -1565 / -1565
Physical Exam
-
General: Well Developed, Well Nourished, No Apparent Distress, Comfortable and Conversant
Respiratory: Clear to Auscultation
Cardiac: Regular Rhythm and S1/S2
GI: Soft, Nontender and Nondistended
Musculoskeletal: Edema, Right Lower Extrem and Edema, Left Lower Extrem
Skin: Warm and Dry
Neuro: Awake, Alert, Oriented and AO x 3
Psych: Calm and Intact Judgement/Insight
[2024-08-05] MEDS: FERRLECIT 110 MG IV (14:03)
[2024-08-05] MEDS: NOVOLOG FLEXPEN-LOW RESISTANCE 1 UNITS SC ×2 (14:04→17:31)
--- NOTE | 2024-08-05 14:37 | CON.ID ---
Consultation
-
Date/Time Consultation Requested: 08/04/2024 1716
Date/Time Consultation Performed: 08/05/2024 1420
Requesting Provider: Dr. Clark
Performing Provider: Dr. Camarillo
Reason for Consultation: Foot osteomyelitis; COVID-positive
Chief Complaint / Past History
History of Present Illness
Luis Meier is a 64-year-old man being evaluated at the request of Dr. Lofton in regards to known left foot osteomyelitis of the fourth metatarsal. History is obtained from chart review, along with patient interview.
The patient is known from a prior admission in late June, when he was found to have a severe left foot skin and soft tissue infection with noted abscess. He underwent debridement, and was ultimately discharged to complete a course of daptomycin
in the treatment of left fourth metatarsal osteomyelitis. He was last seen on 07/21/24, and thereafter was receiving his antibiotics in the outpatient infusion center.
He was readmitted on 07/31 secondary to significant anemia (Hb = 7.5) noted on outpatient lab testing. During that hospitalization he was evaluated by cardiology and Nephrology. He underwent diuresis for CHF, and also received blood transfusion
for his anemia.
He presented back to the emergency room yesterday secondary to increased shortness of breath with severe exertional dyspnea and a mild nonproductive cough. He was felt to have exacerbation of CHF, but has also been found to have a rising
creatinine, and now on testing found to be COVID 19 positive. Infectious Diseases is asked to comment upon ongoing antibiotic management, and potential treatment for COVID-19.
At present, he notes ongoing shortness of breath, although improved from admission. He denies any pain in his foot. He denies any myalgias.
Past History
Additional Past Medical History:
DM2
Peripheral Neuropathy
Hypertension
CKD III
Anxiety / Depression
Lumbar DDD
Additional Past Surgical History:
Lumbar discectomy, lumbar fusion with HW
Lumbar revision with rhizotomy
Cholecystectomy
Left 5th toe amp.
Allergy History:
No Known Allergies Allergy (Verified 08/04/24 08:40)
Medications Reviewed: Yes
Current Antibiotics:
Daptomycin 800 mg IV every 48 hours
Social History
Tobacco: Non-Smoker
Alcohol: None
Drug: None
Employment: Retired
Family History
Family History: Not Pertinent
Review of Systems
Vital Signs
Temp Pulse Resp BP Pulse Ox
100.1 F 80 17 148/68 98
08/05/24 11:00 08/05/24 11:00 08/05/24 11:00 08/05/24 11:00 08/05/24 11:00
Physical Exam
Physical Exam
Constitutional: No Acute Distress, Comfortable, Chronically Ill and Non-toxic
Eyes: No Conjunctival Hemorrhage and Sclera Anicteric
Oral: No Thrush and No Ulcers
Cardiovascular: Regular Rate and S1/S2; Negative S3/S4
Pulmonary: Coarse and Non Labored; Negative Rales
Gastrointestinal: Soft, Non Tender, Non Distended and Normal Bowel Sounds
Extremities: Negative Edema, Cyanosis or Erythema
Wound: Other (Left foot prior incisional wound well-healed. Several dried eschars without periwound erythema noted. No open or draining wounds.)
Neurological: Awake and Alert
Psychological: Calm
Lab / Diagnostic Study Results
08/05/24 03:49
08/05/24 03:49
Abs Immat Gran (auto) 0.0 10^3/uL (0-0.05) 08/05/24 03:49
Absolute Neuts (auto) 6.2 10^3/uL (1.4-6.5) 08/05/24 03:49
Absolute Lymphs (auto) 0.5 10^3/uL (1.2-3.4) L 08/05/24 03:49
Absolute Monos (auto) 0.5 10^3/uL (0.1-0.6) 08/05/24 03:49
Absolute Basos (auto) 0.0 10^3/uL (0-0.2) 08/05/24 03:49
Immature Gran % 0.4 % (0-0.5) 08/05/24 03:49
Neutrophils % 80.3 % (42.2-75.2) H 08/05/24 03:49
Lymphocytes % 6.7 % (20.5-51.1) L 08/05/24 03:49
Monocytes % 6.7 % (1.7-9.3) 08/05/24 03:49
Eosinophils % 5.8 % (0-6) 08/05/24 03:49
Basophils % 0.1 % (0-2) 08/05/24 03:49
PT 16.8 Sec (11.4-14.6) H 08/04/24 09:02
INR 1.33 08/04/24 09:02
Ur Squamous Epith Cells 08-01 /LPF (Few) 08/05/24 09:50
Microbiology Results
Micro:
08/05/24 09:56 Blood Culture - Pending
Blood/Venous
08/05/24 08:36 Blood Culture - Pending
Blood/Venous
Imaging:
08/04/2024 CXR (2 view): Worsening left midlung airspace opacities. Mild diffuse interstitial prominence otherwise improved in the other lung regions bilaterally. No pleural effusions noted. Overall, mild pulmonary edema likely progressed on the
left and improved on the right. Please see full dictation for additional detail. Film personally viewed.
Assessment / Plan
COVID-19 positive.
Shortness of breath.
Exacerbation of CHF
Left foot osteomyelitis
DM2
Peripheral Neuropathy
Hypertension
CKD III
Anxiety / Depression
Lumbar DDD
Recommendations:
Continue current course of daptomycin through 08/25/2024, to complete a 6-week course. Will continue to monitor CPK while on daptomycin
Given symptomatology, will initiate a 5-day course of molnupiravir for diagnosed COVID-19 infection. Patient may benefit from addition of Decadron.
Monitor white count and temperature curve.
Local care to the left foot wound.
Diuresis as per Cardiology.
Continue with supportive measures.
Care Review
Plan reviewed with: Physician (Hospitalist) and Other (Clinical Infectious Diseases Pharmacist)
--- NOTE | 2024-08-05 15:14 | CM ---
CM reviewed chart, patient Covid positive. Per chart, patient receiving IV antibiotics at outpatient infusion. Patient followed by Sowmya FOSTER, will update on discharge status. CM will continue to follow for all discharge planning needs.
Plan; home with family, Sowmya, continue antibiotics.
[2024-08-05] MEDS: DECADRON 6 MG PO (16:29)
[2024-08-05 17:25] LABS: Glucose - Point of Care 164 mg/dl (70-99)
[2024-08-05] MEDS: MOLNUPIRAVIR (EUA) 800 MG PO (17:31)
[2024-08-05 21:42] LABS: Glucose - Point of Care 208 mg/dl (70-99)
[2024-08-06 03:30] VITALS: BP 162/81
[2024-08-06 06:00] VITALS: BMI 22.9
[2024-08-06 06:45] LABS: % Basophils 0.1 % (0-2); % Eosinophils 0.4 % (0-6); % Immature Granulocytes 0.6 % (0-0.5); % Lymphocytes 5.3 % (20.5-51.1); % Monocytes 1.8 % (1.7-9.3); % Neutrophils 91.8 % (42.2-75.2); Absolute Lymphocytes 0.4 10^3/uL (1.2-3.4); Absolute Monocytes 0.1 10^3/uL (0.1-0.6); Absolute Neutrophils 6.6 10^3/uL (1.4-6.5); Hematocrit 28.6 % (39.0-52.0); Hemoglobin 9.3 g/dL (13.0-18.0); Mean Corp Hgb Conc. 32.5 g/dL (33.0-37.0); Mean Corpuscular Hgb 28.1 pg (27.0-31.0); Mean Corpuscular Volume 86.4 fL (80.0-94.0); Mean Platelet Volume 10.2 fL (7.4-10.4); Nucleated Red Blood Cells % 0 % (-); Platelet Count 276 10^3/uL (130-400); Red Blood Cell Count 3.31 10^6/uL (4.70-6.10); Red Cell Dist. Width 15.6 % (11.5-14.5); White Blood Cell Count 7.1 10^3/uL (4.8-10.8)
[2024-08-06 06:46] LABS: Blood Urea Nitrogen 78 mg/dl (9-20); Calcium 8.2 mg/dl (8.4-10.2); Carbon Dioxide 18 mmol/L (22-30); Chloride 106 mmol/L (98-107); Creatine Phosphokinase 46 U/L (55-170); Estimated Creatinine Clearance 28 ml/min; Glucose 199 mg/dl (70-99); Potassium 4.4 mmol/L (3.5-5.1); Sodium 138 mmol/L (135-145); eGFR 20.94
[2024-08-06 07:00] VITALS: BP 160/78
[2024-08-06 07:36] LABS: Glucose - Point of Care 199 mg/dl (70-99)
[2024-08-06] MEDS: NOVOLOG FLEXPEN-LOW RESISTANCE 1 UNITS SC (09:10)
[2024-08-06] MEDS: ATIVAN 1 MG PO ×3 (09:11→21:29)
[2024-08-06] MEDS: COREG 6.25 MG PO ×2 (09:11→20:51)
[2024-08-06] MEDS: NEURONTIN 300 MG PO ×2 (09:11→20:51)
[2024-08-06] MEDS: WELLBUTRIN SR (12 hour sustained release) 150 MG PO ×2 (09:11→20:51)
[2024-08-06] MEDS: HEPARIN 5000 UNITS SC ×2 (09:11→20:50)
[2024-08-06] MEDS: DECADRON 6 MG PO (09:11)
[2024-08-06] MEDS: TESSALON PERLES 100 MG PO (09:11)
[2024-08-06] MEDS: SODIUM BICARBONATE 650 MG PO ×2 (09:12→20:51)
[2024-08-06] MEDS: MOLNUPIRAVIR (EUA) 800 MG PO ×2 (09:24→20:51)
--- NOTE | 2024-08-06 09:50 | W.PN.CD ---
Today's Communication / Plan
-
Diuresis per nephrology
Covid19 per hospitalist
Impression / Plan
-
Background: 64M with hypertension, hyperlipidemia, type 2 diabetes mellitus, CKD4 (known diabetic nephropathy), with diabetic neuropathy, MRSA bacteremia with left foot osteomyelitis (on daptomycin), chronic kidney disease, and HFpEF who presented
to the emergency department with weakness and shortness of breath
Stock Control Supervisor: Dr. Nuñez
Acute hypoxic respiratory insufficiency
- Mixed etiology
- ACUTE COVID19 pneumonia
- Acute on chronic HFpEF
Covid19 pneumonia
- Last temp over 101 was 08/05/2024 at 21:45 hrs
- Per hospitalist
Acute on chronic HFpEF
- Nephrology holding diuretics
- Some edema is related to nephrotic range proteinuria and is not all heart failure
Hx osteomyelitis, chronic daptomycin
Chronic anemia, perhaps mixed etiology=> CKD, inflammation, per medicine/nephrology
CKD4, diabetic nephropathy
Hypertension, stable,
Dyslipidemia, LDL above goal last admission
Type 2 diabetes mellitus, Tx per primary team
Subjective:
Feels a bit better
DATA:
Transthoracic echocardiogram, 07/10/2024:
CONCLUSIONS
1. Mild concentric LVH with EF 60-65%
2. Mild RVE
3. LAE
4. No evidence of significant valvular disease
Physical Exam
Vital Signs/Labs
Vital Signs
Temp Pulse Resp BP Pulse Ox
97.2 F 70 18 162/81 98
08/06/24 03:30 08/06/24 03:30 08/06/24 03:30 08/06/24 03:30 08/06/24 03:30
08/05/24 08/06/24 08/07/24
06:59 06:59 06:59
Actual Weight 83.007 kg 83.092 kg
08/06/24 05:33
08/06/24 05:33
PT 16.8 Sec (11.4-14.6) H 08/04/24 09:02
INR 1.33 08/04/24 09:02
APTT 28.4 Sec (23.4-35.0) 08/04/24 09:02
08/04/24
09:02
Iqo-K-Hqpuwxscjcg Pept [id number]
LAB Results
08/04/24
09:02
Troponin I 0.028
Physical Exam
Constitutional: No acute distress
EENT: Anicteric
Cardiovascular: Rhythm & rate is regular and Pedal edema present
Respiratory: Respiratory effort normal and Lungs clear to auscul.
GI: Soft and Distention absent
Neuro/Psych: AO x 3
Data Reviewed
-
Date of Service: August 06, 2024
--- NOTE | 2024-08-06 10:29 | W.PN.NEPH.PH ---
Today's Communication / Plan
-
follow BMP
Assessment/Plan
-
Impression:
COVID
CKD4 baseline 2.9
Metabolic acidosis
Anemia
Edema
Acute on chr DCHF
Left Foot osteomyelitis
HTN
+PR3 Ab
Nephrotic range proteinuria of 5 g, biopsy-proven diabetic nephropathy
07/21/24: K biopsy nodular D nephropathy
IFTA mod to severe
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
Plan:
restart Lasix tomorrow
follow BMP
back on dapto for 6 week course
continue bicarb
hold lisinopril still
-
-
Date of Service: August 06, 2024
CC / HPI / ROS
-
Chief Complaint:
IVY with CKD
History of Present Illness:
cr down to 3.2
wt is down
BP stable
hb up to 9.3
COVID +ve on molnupiravir
acidosis stable on bicarb
Review of Systems:
still with cough-dry
no cp.
SOB slightly better
Labs
-
Labs:
WBC 7.1 10^3/uL (4.8-10.8) 08/06/24 05:33
RBC 3.31 10^6/uL (4.70-6.10) L 08/06/24 05:33
Hgb 9.3 g/dL (13.0-18.0) L D 08/06/24 05:33
Hct 28.6 % (39.0-52.0) L 08/06/24 05:33
Plt Count 276 10^3/uL (130-400) D 08/06/24 05:33
Sodium 138 mmol/L (135-145) 08/06/24 05:33
Potassium 4.4 mmol/L (3.5-5.1) 08/06/24 05:33
Chloride 106 mmol/L (98-107) 08/06/24 05:33
Carbon Dioxide 18 mmol/L (22-30) L 08/06/24 05:33
BUN 78 mg/dl (9-20) H 08/06/24 05:33
Creatinine 3.2 mg/dL (0.7-1.3) H 08/06/24 05:33
eGFR 20.94 08/06/24 05:33
Glucose 199 mg/dl (70-99) H 08/06/24 05:33
Calcium 8.2 mg/dl (8.4-10.2) L 08/06/24 05:33
Uni-M-Hlruqmqvrwm Pept [id number] pg/ml 08/04/24 09:02
Albumin 3.2 g/dl (3.5-5.0) L 08/04/24 09:02
Physical Exam
-
Vital Signs:
Vital Signs
Temp Pulse Resp BP Pulse Ox
97.2 F 70 18 162/81 98
08/06/24 03:30 08/06/24 03:30 08/06/24 03:30 08/06/24 03:30 08/06/24 03:30
Cardiovascular:: Regular rate and rhythm
Respiratory:: Bilateral: Coarse
Lung Excursion:: Normal
Abdomen:: Nontender and Soft
Bowel Sounds:: Normal
Extremity Edema:: +2: Bilateral:
[2024-08-06 11:00] VITALS: BP 153/80
[2024-08-06] MEDS: NOVOLOG FLEXPEN-LOW RESISTANCE 3 UNITS SC ×2 (12:24→16:37)
[2024-08-06 12:27] LABS: Glucose - Point of Care 280 mg/dl (70-99)
--- NOTE | 2024-08-06 14:19 | W.PN.ID1 ---
Date of Service
Date of Service: August 06, 2024
Today's Communication
Continue antibiotics.
Assessment / Plan
COVID-19 positive.
Shortness of breath.
Exacerbation of CHF
Left foot osteomyelitis
DM2
Peripheral Neuropathy
Hypertension
CKD III
Anxiety / Depression
Lumbar DDD
Recommendations:
Continue current course of daptomycin through 08/25/2024, to complete a 6-week course. Will continue to monitor CPK while on daptomycin
Given COVID-19 symptomatology, will continue a 5-day course of molnupiravir for diagnosed COVID-19 infection. Patient has been started on Decadron also.
Monitor white count and temperature curve.
Local care to the left foot wound.
Diuresis as per Cardiology.
Continue with supportive measures.
Chief Complaint
-: Other (Covid 19; left foot osteomyelitis)
Subjective / Review of Systems
Patient seen and examined. Overall reports feeling slightly improved today. Denies difficulty breathing or significant cough.
Fevers noted last evening, but seems to have improved today.
Review of Systems: No Fever and No Chills
Vital Signs / Physical Exam
Vital Signs
Vital Signs
Temp Pulse Resp BP Pulse Ox
97.5 F 71 20 153/80 97
08/06/24 11:00 08/06/24 11:00 08/06/24 11:00 08/06/24 11:00 08/06/24 11:00
Physical Exam
Constitutional: No Acute Distress, Chronically Ill and Non-toxic
Eyes: No Conjunctival Hemorrhage and Sclera Anicteric
Cardiovascular: S1/S2; Negative S3/S4
Pulmonary: Coarse and Non Labored; Negative Wheezes
Gastrointestinal: Soft and Non Tender
Extremities: Negative Edema, Cyanosis or Erythema
Wound: Other (Left foot wound dressed.)
Neurological: Awake and Alert
Psychological: Calm
Objective Data
Lab Data
Lab Results
08/06/24 05:33
08/06/24 05:33
PT 16.8 Sec (11.4-14.6) H 08/04/24 09:02
INR 1.33 08/04/24 09:02
APTT 28.4 Sec (23.4-35.0) 08/04/24 09:02
Estimated Creat Clear 28 ml/min 08/06/24 05:33
Total Bilirubin 0.8 mg/dl (0.2-1.3) 08/04/24 09:02
AST 17 U/L (17-59) 08/04/24 09:02
ALT 22 U/L (0-50) 08/04/24 09:02
Alkaline Phosphatase 163 U/L (38-126) H 08/04/24 09:02
Most recent labs reviewed.
Micro Results:
08/05/24 09:56 Blood Culture - Preliminary
Blood/Venous No Growth in 24 hours- Final report to follow
08/05/24 08:36 Blood Culture - Preliminary
Blood/Venous No Growth in 24 hours- Final report to follow
Imaging:
08/04/2024 CXR (2 view): Worsening left midlung airspace opacities. Mild diffuse interstitial prominence otherwise improved in the other lung regions bilaterally. No pleural effusions noted. Overall, mild pulmonary edema likely progressed on the
left and improved on the right. Please see full dictation for additional detail. Film personally viewed.
[2024-08-06] MEDS: FERRLECIT 110 MG IV (15:05)
[2024-08-06 15:15] VITALS: BP 153/79
--- NOTE | 2024-08-06 15:52 | W.PN.HOSP.TC ---
Today's Communication/Plan
-
Continue antibiotics
Continue molnupiravir and Decadron.
Hold Lasix monitor renal function.
Assessment / Plan
Assessment / Plan
IMPRESSION:
Acute hypoxic respiratory insufficiency secondary to pulmonary edema
Acute CHF exacerbation preserved EF
Acute pulmonary edema
IVY on CKD 4
COVID-positive bronchitis/possible viral pneumonia.
Other conditions:
IDDM
Nephrotic range proteinuria
Positive proteinase 3 antibodies
Hypertension
Chronic anemia
Left foot osteomyelitis treated with daptomycin
Anxiety
PLAN:
Acute hypoxic respiratory insufficiency pulse ox 89% upon presentation
Likely multifactorial in settings of CHF and possibly COVID bronchitis/pneumonia.
Acute pulmonary edema secondary to CHF exacerbation. Preserved EF.
Echocardiogram 07/10: LVEF 60 to 65%. Mild RVE, no evidence of significant valvular disease..
Suspect CHF with cardiorenal state and due to progressive CKD/IVY
IV diuresis status post Lasix 80 mg in ED. Continue Lasix 60 mg IV twice daily. Creatinine bumped to 3.6. Hold further diuresis and monitor.
Monitor daily weight and BMP.
Continue Coreg
Cardiology consultation
COVID-positive.
Febrile.
Chest x-ray with asymmetric interstitial infiltrate possibly combination of pulmonary edema and viral pneumonia.
Continue molnupiravir
Continue Decadron
IVY on CKD 4
Nephrotic range proteinuria, suspect diabetic nephropathy.
Interestingly enough his positive proteinase 3 antibodies.
Metabolic acidosis noted.
Hold lisinopril.
Follow renal function
Oral bicarbonate
Treat anemia
Nephrology input appreciated
Essential hypertension
Continue Coreg, dose recently increased
Hold lisinopril given rising creatinine.
Type II/IDDM.
Most recent hemoglobin A1c dropped from 14-5.7 (07/10/2024) likely due to decreased renal clearance
Continue basal bolus protocol with serial Accu-Cheks
Chronic normocytic anemia
Hemoglobin at 8.2 trending down to sevens
Reported with heme positive stool
Iron studies consistent mixed picture of mild iron deficiency with anemia of chronic inflammation/CKD
Transfuse to keep hemoglobin above 8
IV iron
Left foot osteomyelitis status post left fifth toe amputation
Tissue culture positive for MRSA.
Continue daptomycin 800 mg IV every 48 hours. As per ID plan is to continue therapy through 08/25/2024.
DVT prophylaxis/heparin
Full code.
Anticipated Discharge: 24 - 48 hours
Subjective/Interval History
-
Date of Service: August 06, 2024
Objective Data
-
Labs:
Laboratory Results
08/06/24
05:33
WBC 7.1
Hgb 9.3 L D
Hct 28.6 L
Plt Count 276 D
Sodium 138
Potassium 4.4
Chloride 106
Carbon Dioxide 18 L
BUN 78 H
Creatinine 3.2 H
Glucose 199 H
Calcium 8.2 L
Vital Signs:
Vital Signs
Temp Pulse Resp BP Pulse Ox
97.5 F 69 20 153/79 96
08/06/24 15:15 08/06/24 15:15 08/06/24 15:15 08/06/24 15:15 08/06/24 15:15
I&O
08/05/24 08/06/24 08/07/24
06:59 06:59 06:59
Intake Total 360 / 360 2109
Output Total 1924 0 / 0
Balance -1564 / -1564
Physical Exam
-
General: Well Developed, Well Nourished, No Apparent Distress, Comfortable and Conversant
Respiratory: Clear to Auscultation
Cardiac: Regular Rhythm and S1/S2
GI: Soft, Nontender and Nondistended
Musculoskeletal: Edema, Right Lower Extrem and Edema, Left Lower Extrem
Skin: Warm and Dry
Neuro: Awake, Alert, Oriented and AO x 3
Psych: Calm and Intact Judgement/Insight
[2024-08-06] MEDS: CUBICIN 16 MG IV (16:28)
[2024-08-06 16:36] LABS: Glucose - Point of Care 293 mg/dl (70-99)
[2024-08-06 20:50] VITALS: BP 153/80
[2024-08-06 21:51] LABS: Glucose - Point of Care 359 mg/dl (70-99)
[2024-08-06 23:30] VITALS: BP 142/73
[2024-08-07] MEDS: TESSALON PERLES 100 MG PO ×2 (00:44→21:26)
[2024-08-07 05:27] LABS: Hematocrit 28.8 % (39.0-52.0); Hemoglobin 9.4 g/dL (13.0-18.0); Mean Corp Hgb Conc. 32.6 g/dL (33.0-37.0); Mean Corpuscular Hgb 28.2 pg (27.0-31.0); Mean Corpuscular Volume 86.5 fL (80.0-94.0); Mean Platelet Volume 9.9 fL (7.4-10.4); Platelet Count 320 10^3/uL (130-400); Red Blood Cell Count 3.33 10^6/uL (4.70-6.10); Red Cell Dist. Width 15.5 % (11.5-14.5); White Blood Cell Count 8.8 10^3/uL (4.8-10.8)
[2024-08-07 05:51] LABS: Blood Urea Nitrogen 87 mg/dl (9-20); Calcium 8.4 mg/dl (8.4-10.2); Carbon Dioxide 19 mmol/L (22-30); Chloride 105 mmol/L (98-107); Estimated Creatinine Clearance 30 ml/min; Glucose 298 mg/dl (70-99); Potassium 4.7 mmol/L (3.5-5.1); Sodium 137 mmol/L (135-145); eGFR 22.63
[2024-08-07 06:00] VITALS: BMI 23.0
[2024-08-07 07:00] VITALS: BP 157/86
[2024-08-07 07:55] LABS: Glucose - Point of Care 264 mg/dl (70-99)
[2024-08-07] MEDS: HEPARIN 5000 UNITS SC ×2 (08:24→21:21)
[2024-08-07] MEDS: NOVOLOG FLEXPEN-LOW RESISTANCE 3 UNITS SC ×2 (08:24→16:35)
[2024-08-07] MEDS: DECADRON 6 MG PO (08:25)
[2024-08-07] MEDS: MOLNUPIRAVIR (EUA) 800 MG PO ×2 (08:26→21:21)
[2024-08-07] MEDS: SODIUM BICARBONATE 650 MG PO ×2 (08:26→21:21)
[2024-08-07] MEDS: NEURONTIN 300 MG PO ×2 (08:26→21:21)
[2024-08-07] MEDS: WELLBUTRIN SR (12 hour sustained release) 150 MG PO ×2 (08:26→21:21)
[2024-08-07] MEDS: COREG 6.25 MG PO ×2 (08:26→21:21)
[2024-08-07] MEDS: ATIVAN 1 MG PO ×3 (08:26→21:21)
--- NOTE | 2024-08-07 09:53 | W.PN.NEPH.PH ---
Today's Communication / Plan
-
lasix
Assessment/Plan
-
Impression:
COVID
CKD4 baseline 2.9
Metabolic acidosis
Anemia
Edema
Acute on chr DCHF
Left Foot osteomyelitis
HTN
+PR3 Ab
Nephrotic range proteinuria of 5 g, biopsy-proven diabetic nephropathy
07/21/24: K biopsy nodular D nephropathy
IFTA mod to severe
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
Plan:
restart Lasix
follow BMP
back on dapto for 6 week course
continue bicarb
hold lisinopril still, can likely restart tomorrow
wean steroids
-
-
Date of Service: August 07, 2024
CC / HPI / ROS
-
Chief Complaint:
IVY with CKD
History of Present Illness:
cr down to 3.0
BP stable
hb up to 9.4
COVID +ve on molnupiravir/decadron
acidosis stable on bicarb
Review of Systems:
still with cough-dry
no cp.
SOB slightly better
Labs
-
Labs:
WBC 8.8 10^3/uL (4.8-10.8) 08/07/24 05:00
RBC 3.33 10^6/uL (4.70-6.10) L 08/07/24 05:00
Hgb 9.4 g/dL (13.0-18.0) L 08/07/24 05:00
Hct 28.8 % (39.0-52.0) L 08/07/24 05:00
Plt Count 320 10^3/uL (130-400) 08/07/24 05:00
Sodium 137 mmol/L (135-145) 08/07/24 05:00
Potassium 4.7 mmol/L (3.5-5.1) 08/07/24 05:00
Chloride 105 mmol/L (98-107) 08/07/24 05:00
Carbon Dioxide 19 mmol/L (22-30) L 08/07/24 05:00
BUN 87 mg/dl (9-20) H 08/07/24 05:00
Creatinine 3.0 mg/dL (0.7-1.3) H 08/07/24 05:00
eGFR 22.63 08/07/24 05:00
Glucose 298 mg/dl (70-99) H 08/07/24 05:00
Calcium 8.4 mg/dl (8.4-10.2) 08/07/24 05:00
Izi-P-Ponxlqcovxd Pept 15376 pg/ml 08/04/24 09:02
Albumin 3.2 g/dl (3.5-5.0) L 08/04/24 09:02
Physical Exam
-
Vital Signs:
Vital Signs
Temp Pulse Resp BP Pulse Ox
97.7 F 75 16 142/73 95
08/06/24 23:30 08/06/24 23:30 08/06/24 23:30 08/06/24 23:30 08/07/24 08:00
Cardiovascular:: Regular rate and rhythm
Respiratory:: Bilateral: Coarse
Lung Excursion:: Normal
Abdomen:: Nontender and Soft
Bowel Sounds:: Normal
Extremity Edema:: None: Bilateral:
[2024-08-07] MEDS: LASIX 40 MG PO (11:52)
[2024-08-07 12:00] LABS: Glucose - Point of Care 241 mg/dl (70-99)
[2024-08-07] MEDS: NOVOLOG FLEXPEN-LOW RESISTANCE 2 UNITS SC (12:01)
--- NOTE | 2024-08-07 12:32 | W.PN.CD ---
Today's Communication / Plan
-
back on PO lasix per nephrology recommendations
please call us back with additional recommendations
Impression / Plan
-
Background: 64M with hypertension, hyperlipidemia, type 2 diabetes mellitus, CKD4 (known diabetic nephropathy), with diabetic neuropathy, MRSA bacteremia with left foot osteomyelitis (on daptomycin), chronic kidney disease, and HFpEF who presented
to the emergency department with weakness and shortness of breath
Medication Technician: Dr. Nuñez
Acute hypoxic respiratory insufficiency
- Mixed etiology
- ACUTE COVID19 pneumonia
- Acute on chronic HFpEF
Covid19 pneumonia
- Last temp over 101 was 08/05/2024 at 21:45 hrs
- Per hospitalist
Acute on chronic HFpEF: improved
-back on PO lasix per nephrology recommendations
Hx osteomyelitis, chronic daptomycin
Chronic anemia, perhaps mixed etiology=> CKD, inflammation, per medicine/nephrology
CKD4, diabetic nephropathy
Hypertension, stable,
Dyslipidemia, LDL above goal last admission
Type 2 diabetes mellitus, Tx per primary team
Subjective:
SOB better since admission.
DATA:
Transthoracic echocardiogram, 07/10/2024:
CONCLUSIONS
1. Mild concentric LVH with EF 60-65%
2. Mild RVE
3. LAE
4. No evidence of significant valvular disease
Physical Exam
Vital Signs/Labs
Vital Signs
Temp Pulse Resp BP Pulse Ox
97.7 F 75 16 142/73 95
08/06/24 23:30 08/06/24 23:30 08/06/24 23:30 08/06/24 23:30 08/07/24 08:00
08/06/24 08/07/24 08/08/24
06:59 06:59 06:59
Actual Weight 83.092 kg 83.603 kg
08/07/24 05:00
08/07/24 05:00
PT 16.8 Sec (11.4-14.6) H 08/04/24 09:02
INR 1.33 08/04/24 09:02
APTT 28.4 Sec (23.4-35.0) 08/04/24 09:02
08/04/24
09:02
Vyb-Y-Pflmuelxurg Pept [id number]
Physical Exam
Constitutional: No acute distress and Comfortable
EENT: Moist mucous membranes
Cardiovascular: Rhythm & rate is regular, JVD pressure is normal, Systolic murmur absent and Pedal edema present
Respiratory: Respiratory effort normal
Neuro/Psych: AO x 3
Data Reviewed
-
Date of Service: August 07, 2024
Labs: Labs Reviewed by me
--- NOTE | 2024-08-07 13:10 | CM ---
CM reviewed chart, Covid positive patient. Patient current with Sowmya FOSTER. CM will update Outpatient Infusion Department on patient discharge status as patient current with [facility]. CM will continue to follow for all discharge planning needs.
Plan; home with Sowmya FOSTER, continue with [facility].
--- NOTE | 2024-08-07 14:05 | W.PN.ID1 ---
Date of Service
Date of Service: August 07, 2024
Today's Communication
Continue antibiotics.
Assessment / Plan
COVID-19 positive.
Shortness of breath.
Exacerbation of CHF
Left foot osteomyelitis
DM2
Peripheral Neuropathy
Hypertension
CKD III
Anxiety / Depression
Lumbar DDD
Recommendations:
Continue current course of daptomycin through 08/25/2024 (to complete a 6-week course).
- Will continue to monitor CPK while on daptomycin. (08/06/2024 CPK = 46)
Given COVID-19 symptomatology, will continue a 5-day course of molnupiravir for diagnosed COVID-19 infection (currently d#3). Patient has been started on Decadron.
Monitor white count and temperature curve.
Local care to the left foot wound.
Continue with supportive measures.
����������������������������������������������������������
Chief Complaint
-: Other (Covid 19; left foot osteomyelitis)
Subjective / Review of Systems
Review of Systems: No Fever
Vital Signs / Physical Exam
Vital Signs
Vital Signs
Temp Pulse Resp BP Pulse Ox
97.8 F 78 20 157/86 95
08/07/24 07:00 08/07/24 07:00 08/07/24 07:00 08/07/24 07:00 08/07/24 08:00
Physical Exam
Constitutional: No Acute Distress, Chronically Ill and Non-toxic
Eyes: No Conjunctival Hemorrhage and Sclera Anicteric
Cardiovascular: Regular Rate and S1/S2; Negative S3/S4
Pulmonary: Non Labored; Negative Wheezes
Gastrointestinal: Soft and Non Tender
Extremities: Negative Edema, Cyanosis or Erythema
Wound: Other (Left foot wound dressed.)
Neurological: Awake and Alert
Psychological: Calm
Objective Data
Lab Data
Lab Results
08/07/24 05:00
08/07/24 05:00
PT 16.8 Sec (11.4-14.6) H 08/04/24 09:02
INR 1.33 08/04/24 09:02
APTT 28.4 Sec (23.4-35.0) 08/04/24 09:02
Estimated Creat Clear 30 ml/min 08/07/24 05:00
Total Bilirubin 0.8 mg/dl (0.2-1.3) 08/04/24 09:02
AST 17 U/L (17-59) 08/04/24 09:02
ALT 22 U/L (0-50) 08/04/24 09:02
Alkaline Phosphatase 163 U/L (38-126) H 08/04/24 09:02
Most recent labs reviewed.
Chest X-Ray: Image Reviewed and Report Reviewed
Micro Results:
08/05/24 09:56 Blood Culture - Preliminary
Blood/Venous No Growth in 48 hours- Final report to follow
08/05/24 08:36 Blood Culture - Preliminary
Blood/Venous No Growth in 48 hours- Final report to follow
Imaging:
08/04/2024 CXR (2 view): Worsening left midlung airspace opacities. Mild diffuse interstitial prominence otherwise improved in the other lung regions bilaterally. No pleural effusions noted. Overall, mild pulmonary edema likely progressed on the
left and improved on the right. Please see full dictation for additional detail.
[2024-08-07] MEDS: FERRLECIT 110 MG IV (14:24)
[2024-08-07 15:00] VITALS: BP 157/86
--- NOTE | 2024-08-07 15:52 | W.PN.HOSP.TC ---
Today's Communication/Plan
-
Resume oral Lasix.
Monitor BMP.
Possibly reintroduce JOSE inhibitor.
Continue antibiotics per
Continue molnupiravir and Decadron.
Discharge planning
Assessment / Plan
Assessment / Plan
IMPRESSION:
Acute hypoxic respiratory insufficiency secondary to pulmonary edema
Acute CHF exacerbation preserved EF
Acute pulmonary edema
IVY on CKD 4
COVID-positive bronchitis/possible viral pneumonia.
Other conditions:
IDDM
Nephrotic range proteinuria
Positive proteinase 3 antibodies
Hypertension
Chronic anemia
Left foot osteomyelitis treated with daptomycin
Anxiety
PLAN:
Acute hypoxic respiratory insufficiency pulse ox 89% upon presentation
Likely multifactorial in settings of CHF and possibly COVID bronchitis/pneumonia.
Acute pulmonary edema secondary to CHF exacerbation. Preserved EF.
Echocardiogram 07/10: LVEF 60 to 65%. Mild RVE, no evidence of significant valvular disease..
Suspect CHF with cardiorenal state and due to progressive CKD/IVY
IV diuresis status post Lasix 80 mg in ED. Continue Lasix 60 mg IV twice daily. Creatinine bumped to 3.6. Hold further diuresis and monitor.
Monitor daily weight and BMP.
Continue Coreg
Cardiology consultation
COVID-positive.
Febrile.
Chest x-ray with asymmetric interstitial infiltrate possibly combination of pulmonary edema and viral pneumonia.
Continue molnupiravir
Continue Decadron
IVY on CKD 4
Nephrotic range proteinuria, suspect diabetic nephropathy.
Interestingly enough his positive proteinase 3 antibodies.
Metabolic acidosis noted.
Hold lisinopril.
Follow renal function
Oral bicarbonate
Treat anemia
Nephrology input appreciated
Essential hypertension
Continue Coreg, dose recently increased
Hold lisinopril given rising creatinine.
Type II/IDDM.
Most recent hemoglobin A1c dropped from 14-5.7 (07/10/2024) likely due to decreased renal clearance
Continue basal bolus protocol with serial Accu-Cheks
Chronic normocytic anemia
Hemoglobin at 8.2 trending down to sevens
Reported with heme positive stool
Iron studies consistent mixed picture of mild iron deficiency with anemia of chronic inflammation/CKD
Transfuse to keep hemoglobin above 8
IV iron
Left foot osteomyelitis status post left fifth toe amputation
Tissue culture positive for MRSA.
Continue daptomycin 800 mg IV every 48 hours. As per ID plan is to continue therapy through 08/25/2024.
DVT prophylaxis/heparin
Full code.
Anticipated Discharge: 24 - 48 hours
Subjective/Interval History
-
Date of Service: August 07, 2024
Objective Data
-
Labs:
Laboratory Results
08/07/24
05:00
WBC 8.8
Hgb 9.4 L
Hct 28.8 L
Plt Count 320
Sodium 137
Potassium 4.7
Chloride 105
Carbon Dioxide 19 L
BUN 87 H
Creatinine 3.0 H
Glucose 298 H
Calcium 8.4
Vital Signs:
Vital Signs
Temp Pulse Resp BP Pulse Ox
97.8 F 78 20 157/86 95
08/07/24 07:00 08/07/24 07:00 08/07/24 07:00 08/07/24 07:00 08/07/24 08:00
I&O
08/06/24 08/07/24 08/08/24
06:59 06:59 06:59
Intake Total 2109
Output Total 0 / 0
Balance 2109
Physical Exam
-
General: Well Developed, Well Nourished, No Apparent Distress, Comfortable and Conversant
Respiratory: Clear to Auscultation
Cardiac: Regular Rhythm and S1/S2
GI: Soft, Nontender and Nondistended
Musculoskeletal: Edema, Right Lower Extrem and Edema, Left Lower Extrem
Skin: Warm and Dry
Neuro: Awake, Alert, Oriented and AO x 3
Psych: Calm and Intact Judgement/Insight
[2024-08-07 16:38] LABS: Glucose - Point of Care 270 mg/dl (70-99)
[2024-08-07 21:36] LABS: Glucose - Point of Care 345 mg/dl (70-99)
[2024-08-07] MEDS: NOVOLOG FLEXPEN 4 UNITS SC (22:30)
[2024-08-07 22:36] VITALS: BP 179/97
[2024-08-07 23:42] LABS: Glucose - Point of Care 344 mg/dl (70-99)
[2024-08-08] MEDS: NOVOLOG FLEXPEN 5 UNITS SC (00:36)
[2024-08-08 01:52] LABS: Glucose - Point of Care 329 mg/dl (70-99)
[2024-08-08 06:00] VITALS: BMI 22.8
[2024-08-08 06:25] LABS: Blood Urea Nitrogen 85 mg/dl (9-20); Calcium 8.8 mg/dl (8.4-10.2); Carbon Dioxide 21 mmol/L (22-30); Chloride 103 mmol/L (98-107); Estimated Creatinine Clearance 34 ml/min; Glucose 299 mg/dl (70-99); Potassium 4.7 mmol/L (3.5-5.1); Sodium 138 mmol/L (135-145); eGFR 26.87
[2024-08-08 07:15] VITALS: BP 174/92
[2024-08-08 07:41] LABS: Glucose - Point of Care 278 mg/dl (70-99)
[2024-08-08] MEDS: COREG 6.25 MG PO (09:15)
[2024-08-08] MEDS: MOLNUPIRAVIR (EUA) 800 MG PO ×2 (09:15→15:26)
[2024-08-08] MEDS: DECADRON 6 MG PO (09:15)
[2024-08-08] MEDS: ATIVAN 1 MG PO ×2 (09:17→15:27)
[2024-08-08] MEDS: LASIX 40 MG PO (09:18)
[2024-08-08] MEDS: WELLBUTRIN SR (12 hour sustained release) 150 MG PO (09:18)
[2024-08-08] MEDS: HEPARIN 5000 UNITS SC (09:21)
[2024-08-08] MEDS: SODIUM BICARBONATE 650 MG PO (09:24)
[2024-08-08] MEDS: NEURONTIN 300 MG PO (09:25)
[2024-08-08] MEDS: NOVOLOG FLEXPEN-LOW RESISTANCE 3 UNITS SC ×2 (09:27→12:36)
--- NOTE | 2024-08-08 11:29 | W.PN.NEPH.PH ---
Today's Communication / Plan
-
observe
Assessment/Plan
-
Impression:
COVID
CKD4 baseline 2.9
Metabolic acidosis
Anemia
Edema
Acute on chr DCHF
Left Foot osteomyelitis
HTN
+PR3 Ab
Nephrotic range proteinuria of 5 g, biopsy-proven diabetic nephropathy
07/21/24: K biopsy nodular D nephropathy
IFTA mod to severe
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
Plan:
restarted Lasix
creatinine at 2.6
follow BMP
back on dapto for 6 week course
continue bicarb
hold lisinopril still, can likely restart tomorrow
wean steroids
-
-
Date of Service: August 08, 2024
CC / HPI / ROS
-
Chief Complaint:
IVY with CKD
History of Present Illness:
cr down to2.8
BP stable
hb up to 9.4
COVID +ve on molnupiravir/decadron
acidosis stable on bicarb
Review of Systems:
still with cough-dry
no cp.
SOB slightly better
Labs
-
Labs:
WBC 8.8 10^3/uL (4.8-10.8) 08/07/24 05:00
RBC 3.33 10^6/uL (4.70-6.10) L 08/07/24 05:00
Hgb 9.4 g/dL (13.0-18.0) L 08/07/24 05:00
Hct 28.8 % (39.0-52.0) L 08/07/24 05:00
Plt Count 320 10^3/uL (130-400) 08/07/24 05:00
Sodium 138 mmol/L (135-145) 08/08/24 05:26
Potassium 4.7 mmol/L (3.5-5.1) 08/08/24 05:26
Chloride 103 mmol/L (98-107) 08/08/24 05:26
Carbon Dioxide 21 mmol/L (22-30) L 08/08/24 05:26
BUN 85 mg/dl (9-20) H 08/08/24 05:26
Creatinine 2.6 mg/dL (0.7-1.3) H 08/08/24 05:26
eGFR 26.87 08/08/24 05:26
Glucose 299 mg/dl (70-99) H 08/08/24 05:26
Calcium 8.8 mg/dl (8.4-10.2) 08/08/24 05:26
Dtr-F-Thbfydnjcei Pept 45899 pg/ml 08/04/24 09:02
Albumin 3.2 g/dl (3.5-5.0) L 08/04/24 09:02
Physical Exam
-
Vital Signs:
Vital Signs
Temp Pulse Resp BP Pulse Ox
97.8 F 81 18 174/92 92
08/08/24 07:15 08/08/24 07:15 08/08/24 07:15 08/08/24 07:15 08/08/24 07:15
Cardiovascular:: Regular rate and rhythm
Respiratory:: Bilateral: Coarse
Lung Excursion:: Normal
Abdomen:: Nontender and Soft
Bowel Sounds:: Normal
Extremity Edema:: None: Bilateral:
[2024-08-08 11:37] LABS: Glucose - Point of Care 283 mg/dl (70-99)
--- NOTE | 2024-08-08 13:04 | W.DS.TRANS ---
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
-
Discharge Instructions:
Discharge Diagnosis/Procedures IMPRESSION:
Acute hypoxic respiratory insufficiency
secondary to pulmonary edema
Acute CHF exacerbation preserved EF
Acute pulmonary edema
IVY on CKD 4
COVID-positive bronchitis/possible viral
pneumonia.
Other conditions:
IDDM
Nephrotic range proteinuria
Positive proteinase 3 antibodies
Hypertension
Chronic anemia
Left foot osteomyelitis treated with daptomycin
Anxiety
Diet 2 Gram Sodium
Instructions: *PCP/Other [employer] Heart Failure Instructions
Stand-Alone Forms:
Changes to Home Medications: Yes
Discharge Medications:
DC Medications w/original date entered in [facility]
bupropion HCl 150 mg tablet,12 hr sustained-release (Wellbutrin SR) 150 mg PO BID Depression 11/11/23
lorazepam 1 mg tablet 1 mg PO TID Anxiety 11/11/23
gabapentin 300 mg capsule 300 mg PO BID pain 07/09/24
insulin lispro protamine-lispro 100 unit/mL (75-25) subcutaneous pen (Humalog Mix 75-25 KwikPen) 0 unit SC AC Diabetes 07/09/24
lisinopril 40 mg tablet 40 mg PO DAILY Blood Pressure 07/09/24
DAPTOmycin [Cubicin] 800 mg As Directed mls/hr IV Q48H Infection 07/23/24
carvedilol 6.25 mg tablet 6.25 mg PO BID Heart Disease/BP 08/04/24
furosemide 40 mg tablet (Lasix) 40 mg PO MOWEFR@0800 Fluid Retention/Swelling 08/04/24
sodium bicarbonate 650 mg tablet 650 mg PO BID #60 tabs 08/08/24
Home Medication Changes
Bicarbonate added
Pending Results: No
--- NOTE | 2024-08-08 13:33 | CM ---
CM reviewed with Hospitalist, patient for discharge today. Spoke with [facility]- patient can receive evening dose, report to ED Sunday at 7:00 a.m. for next dose, requesting dressing change prior to discharge. Patient aware of discharge plan, reports
brother will provide transport home. IMM verbally reviewed, placed in chart. Patient inquiring about missing cane, call to security, left VM. CM will update Sowmya FOSTER on discharge status. CM will continue to follow for all discharge planning needs.
Plan; home with brother, Sowmya FOSTER, TIM.
Sowmya
[2024-08-08] MEDS: FERRLECIT 110 MG IV (14:25)
[2024-08-08] MEDS: CUBICIN 16 MG IV (15:27)
[2024-08-08 15:46] VITALS: BP 175/93
--- NOTE | 2024-08-08 16:12 | PTCARENOTE ---
Cubicin and molnupiravir given early per md verbal instructions. dc instructions provided. pt verbalized complete understanding. picc line remianed in place per md orders. pt wheeled to visitors private vehicle.
--- NOTE | 2024-08-11 11:44 | CM ---
Patient who was discharged 08/08/24 who was receiving wound care. Covid Positive 08/05/24. Per nurse activity notes 08/08; ambulatory in room.
Received phone call from Sowmya Jansen; they did not receive the referral on 08/08, day of discharge, for resumption of service. Justyna had spoken with CRICKET Clay on 08/08 who stated she intended to place referral however was unable due to a computer
issue. Per Justyna, patient was aware of resumption of service. They will contact the patient today to schedule the appointment. Justyna was made aware patient is Covid positive and was scheduled for outpatient infusion center, per prior CM.
Per prior CM notes, the plan was home with brother with [facility] and outpatient infusion center.
CM placed referral for resumption of [facility] for nurse.
== END 2024-08-08 16:39 | disposition home health service (06) | DRG 177 ==
LOC: 4 WEST ACU 15:16
PROVIDERS: Internal Medicine Cardiovascular Disease; Physician Assistant Medical; Specialist; Student in an Organized Health Care Education/Training Program; ADMITTING PHYSICIAN Internal Medicine; CONSULT PHYSICIAN Internal Medicine; EMERGENCY PHYSICIAN Student in an Organized Health Care Education/Training Program; FAMILY PHYSICIAN Internal Medicine; OTHER PHYSICIAN Internal Medicine Infectious Disease
PROC: 30243N1 Transfusion of Nonautologous Red Blood Cells into Central Vein, Percutaneous Approach (ICD-10-PCS; 2024-08-05)
DX: U07.1 COVID-19 (principal); I50.33 Acute on chronic diastolic (congestive) heart failure; J12.82 Pneumonia due to coronavirus disease 2019; I13.0 Hypertensive heart and chronic kidney disease with heart failure and stage 1 through stage 4 chronic kidney disease, or unspecified chronic kidney disease; N18.4 Chronic kidney disease, stage 4 (severe); M86.9 Osteomyelitis, unspecified; E87.20 Acidosis, unspecified; N17.9 Acute kidney failure, unspecified; R78.81 Bacteremia; E11.69 Type 2 diabetes mellitus with other specified complication; E11.22 Type 2 diabetes mellitus with diabetic chronic kidney disease; E11.40 Type 2 diabetes mellitus with diabetic neuropathy, unspecified; F41.9 Anxiety disorder, unspecified; B95.62 Methicillin resistant Staphylococcus aureus infection as the cause of diseases classified elsewhere; E78.00 Pure hypercholesterolemia, unspecified; D63.1 Anemia in chronic kidney disease; J40 Bronchitis, not specified as acute or chronic; R06.89 Other abnormalities of breathing; F32.A Depression, unspecified; I70.90 Unspecified atherosclerosis; M51.369 Other intervertebral disc degeneration, lumbar region without mention of lumbar back pain or lower extremity pain; D50.9 Iron deficiency anemia, unspecified; R09.02 Hypoxemia; Z79.4 Long term (current) use of insulin; Z89.422 Acquired absence of other left toe(s)
CPT/HCPCS: 71046; 80048; 80053; 81003; 81015; 82550; 82570; 82962; 83880; 84300; 84484; 85025; 85027; 85610; 85730; 86850; 86900; 86901; 86920; 87040; 87811; 93005; 96374; 96375; 99285; J0878; J2916; P9016

== ENCOUNTER 2024-08-12 07:40 | Outpatient (RCR) | payer MEDICARE, OTHER, SELFPAY ==
[2024-07-25 10:39] VITALS: BP 166/74
[2024-07-25] MEDS: CUBICIN 116 MG IV (10:43)
--- NOTE | 2024-07-25 15:10 | PTCARENOTE ---
Patient arrived without family member to educate on saline flushing. Consulted Social work. Patient son Chance arrived for education upon end of treatment. Chance watched the flushing of the PICC line and was able to demonstrate understanding by
flushing the line himself using proper technique. Patient and Chance educated on flushing line daily when he is not receiving the antibiotic. Patient/Chance verbalized understanding.
PICC line dressing changed.
[2024-07-27] MEDS: CUBICIN 116 MG IV (07:30)
[2024-07-29 08:51] VITALS: BP 158/80
[2024-07-29] MEDS: CUBICIN 116 MG IV (08:52)
[2024-07-29 09:04] LABS: % Basophils 0.6 % (0-2); % Eosinophils 9.7 % (0-6); % Immature Granulocytes 0.2 % (0-0.5); % Lymphocytes 15.9 % (20.5-51.1); % Monocytes 9.7 % (1.7-9.3); % Neutrophils 63.9 % (42.2-75.2); Absolute Eosinophils 0.5 10^3/uL (0-0.7); Absolute Lymphocytes 0.8 10^3/uL (1.2-3.4); Absolute Monocytes 0.5 10^3/uL (0.1-0.6); Absolute Neutrophils 3.2 10^3/uL (1.4-6.5); Hematocrit 23.6 % (39.0-52.0); Hemoglobin 7.6 g/dL (13.0-18.0); Mean Corp Hgb Conc. 32.2 g/dL (33.0-37.0); Mean Corpuscular Hgb 28.6 pg (27.0-31.0); Mean Corpuscular Volume 88.7 fL (80.0-94.0); Mean Platelet Volume 9.5 fL (7.4-10.4); Platelet Count 185 10^3/uL (130-400); Red Blood Cell Count 2.66 10^6/uL (4.70-6.10); Red Cell Dist. Width 15.9 % (11.5-14.5)
[2024-07-29 10:08] LABS: Blood Urea Nitrogen 72 mg/dl (9-20); Calcium 8.7 mg/dl (8.4-10.2); Carbon Dioxide 17 mmol/L (22-30); Chloride 114 mmol/L (98-107); Glucose 143 mg/dl (70-99); Sodium 146 mmol/L (135-145); eGFR 24.74
[2024-07-29 10:13] LABS: Creatine Phosphokinase 87 U/L (55-170)
[2024-07-29 10:18] LABS: Erythrocyte Sed Rate 94 mm/hour (0-20)
[2024-07-31 09:21] LABS: % Basophils 0.3 % (0-2); % Eosinophils 5.9 % (0-6); % Immature Granulocytes 0.2 % (0-0.5); % Lymphocytes 8.6 % (20.5-51.1); % Monocytes 10.3 % (1.7-9.3); % Neutrophils 74.7 % (42.2-75.2); Absolute Eosinophils 0.4 10^3/uL (0-0.7); Absolute Lymphocytes 0.5 10^3/uL (1.2-3.4); Absolute Monocytes 0.6 10^3/uL (0.1-0.6); Absolute Neutrophils 4.4 10^3/uL (1.4-6.5); Hematocrit 23.6 % (39.0-52.0); Hemoglobin 7.5 g/dL (13.0-18.0); Mean Corp Hgb Conc. 31.8 g/dL (33.0-37.0); Mean Corpuscular Hgb 28.1 pg (27.0-31.0); Mean Corpuscular Volume 88.4 fL (80.0-94.0); Mean Platelet Volume 9.1 fL (7.4-10.4); Platelet Count 188 10^3/uL (130-400); Red Blood Cell Count 2.67 10^6/uL (4.70-6.10); Red Cell Dist. Width 15.9 % (11.5-14.5); White Blood Cell Count 5.9 10^3/uL (4.8-10.8)
[2024-07-31] MEDS: CUBICIN 116 MG IV (09:21)
--- NOTE | 2024-07-31 09:29 | SURV.HPR ---
Assessment / Plan
- -
Patient here today for daptomycin with worsening SOB on exertion, fatigue and hgb 7.5.
Plan:
Discussed with Dr. Camarillo and plan to send to ER for evaluation for symptomatic anemia.
ER made aware via TT teams
Patient in agreement.
Medical History
- Chief Complaint
Date of Service: 07/31/24
- Interval History
Hospital admission for osteomyelitis to the left foot. Discharged 07/23 and receiving daptomycin every other day due to kidney function.
- Family History
Family History: Not pertinent
- Allergies & Home Medications
Allergies
Allergy/AdvReac Type Severity Reaction Status Date / Time
No Known Allergies Allergy Verified 07/31/24 09:27
Home Medications
acetaminophen 500 mg tablet 500 mg PO Q6HPRN PRN mild pain 03/26/22
bupropion HCl 150 mg tablet,12 hr sustained-release (Wellbutrin SR) 150 mg PO BID Depression 11/11/23
lorazepam 1 mg tablet 1 mg PO TID Anxiety 11/11/23
albuterol sulfate 90 mcg/actuation aerosol inhaler 2 puff inhalation R Q6HPRN PRN sob 07/09/24
carvedilol 3.125 mg tablet 3.125 mg PO BID Blood Pressure 07/09/24
gabapentin 300 mg capsule 300 mg PO BID Neurological Condition 07/09/24
insulin lispro protamine-lispro 100 unit/mL (75-25) subcutaneous pen (Humalog Mix 75-25 KwikPen) 0 unit SC BID Diabetes 07/09/24
lisinopril 40 mg tablet 40 mg PO DAILY Blood Pressure 07/09/24
DAPTOmycin [Cubicin] 800 mg As Directed mls/hr IV Q48H Infection 07/23/24
Review of Systems
- -
History Source: Patient
All other systems: Reviewed and negative
General: Reports: Fatigue, Weakness
Cardiac: Reports: Dyspnea on Exertion, Edema
Respiratory: Reports: Shortness of Breath
GI: Reports: Appetite Fair
Vascular: Reports: Leg Edema
MusculoSkeletal: Reports: Muscle Weakness
Neurologic: Reports: Numbness
Patient reports the following physical concerns:
Physical Exam
- -
General: Well Developed, No Apparent Distress, Male, Conversant
HEENT: Normocephalic, PERRLA
Respiratory: Clear to Auscultation, Non Labored Respirations
Cardiac: Regular Rhythm, Positive S1/S2
GI: Soft, Non Tender, Non Distended
Musculoskeletal: Edema, Left Lower Extremity, Edema, Right Lower Extremity
Skin: Warm, No Petechiae, No Ecchymosis, Other (wound left foot not seen )
Neuro: AAOx3
Hematologic/Lymphatic: No Lymphadenopathy
Psych: Calm, Intact Judgement/Insight, Well Kept, Interactive & Cooperative
[2024-07-31 09:30] VITALS: BP 159/75
--- NOTE | 2024-07-31 09:39 | PTCARENOTE ---
late entry note for 07/29/24- Labs checked, hgb 7.6--which dropped from 8.1. Ordering physician Dr. Camarillo notified.
Arjun Rolle Maloney, Heather, Kimzey, Michael
Sunday, Jul 29
You said
Good morning. Luis Meier is in today for his daptomycin� the hgb today 7.6 which dropped from last week 8.1. Just wanted to make sure you are aware thank you.
9:11 AM
Message sent at 9:11 AM.
28 days left
Message expires in 28 days.
Message status is10/19 Read
Fili Camarillo
said
Ok. Does he have a PCP?
9:18 AM
Message sent at 9:18 AM.
28 days left
Message expires in 28 days.
You said
He does. His pcp is Nik Dumont, but as you are the ordering physician, we notify you.
9:59 AM
Message sent at 9:59 AM.
29 days left
Message expires in 29 days.
Message status is
[2024-07-31 10:14] LABS: ALT (SGPT) 38 U/L (0-50); AST (SGOT) 25 U/L (17-59); Albumin 3.4 g/dl (3.5-5.0); Alkaline Phosphatase 201 U/L (38-126); Blood Urea Nitrogen 71 mg/dl (9-20); Calcium 8.7 mg/dl (8.4-10.2); Carbon Dioxide 17 mmol/L (22-30); Chloride 112 mmol/L (98-107); Glucose 132 mg/dl (70-99); Potassium 5.6 mmol/L (3.5-5.1); Sodium 142 mmol/L (135-145); Total Bilirubin 0.4 mg/dl (0.2-1.3); Total Protein 6.6 g/dl (6.3-8.2); eGFR 23.72
--- NOTE | 2024-07-31 15:51 | PTCARENOTE ---
0830-Pt arrived for IV antibiotic infusion. Pt c/o shortness of breath on exertion and increasing weakness. VS stable Pulse ox 98% on room air. Pt had lab work om 07/29/24 revealed HGB at 7.5. Pt denies any bleeding. Pt seen today by our DUPLICATING MACHINE MECHANIC Leann
Yulia who contacted Dr Camarillo and patients GP. Pt given Daptomycin as ordered and then transported to emergency department as directed by Sr. Camarillo for further evaluation.
[2024-08-10 07:31] VITALS: BP 179/88
[2024-08-10] MEDS: CUBICIN 116 MG IV (07:35)
[2024-08-12] MEDS: CUBICIN 116 MG IV (08:13)
[2024-08-12 08:19] LABS: % Basophils 0.1 % (0-2); % Eosinophils 6.6 % (0-6); % Immature Granulocytes 1.2 % (0-0.5); % Lymphocytes 3.7 % (20.5-51.1); % Monocytes 5.8 % (1.7-9.3); % Neutrophils 82.6 % (42.2-75.2); Absolute Immature Granulocytes 0.2 10^3/uL (0-0.05); Absolute Lymphocytes 0.5 10^3/uL (1.2-3.4); Absolute Monocytes 0.8 10^3/uL (0.1-0.6); Hematocrit 27.7 % (39.0-52.0); Hemoglobin 9.3 g/dL (13.0-18.0); Mean Corp Hgb Conc. 33.6 g/dL (33.0-37.0); Mean Corpuscular Hgb 28.2 pg (27.0-31.0); Mean Corpuscular Volume 83.9 fL (80.0-94.0); Mean Platelet Volume 9.4 fL (7.4-10.4); Platelet Count 441 10^3/uL (130-400); Red Cell Dist. Width 15.8 % (11.5-14.5); White Blood Cell Count 14.6 10^3/uL (4.8-10.8)
[2024-08-12 08:28] VITALS: BP 173/72
[2024-08-12 08:46] LABS: Blood Urea Nitrogen 78 mg/dl (9-20); Calcium 8.4 mg/dl (8.4-10.2); Carbon Dioxide 21 mmol/L (22-30); Chloride 105 mmol/L (98-107); Creatine Phosphokinase 43 U/L (55-170); Glucose 182 mg/dl (70-99); Potassium 4.6 mmol/L (3.5-5.1); Sodium 138 mmol/L (135-145); eGFR 25.68
[2024-08-12 08:57] LABS: Erythrocyte Sed Rate 104 mm/hour (0-20)
== END 2024-08-16 23:59 | disposition home or self-care (01) ==
LOC: OID 07:40
PROVIDERS: Nurse Practitioner Adult Health; ATTENDING PHYSICIAN Internal Medicine Infectious Disease; FAMILY PHYSICIAN Internal Medicine
DX: M70.972 Unspecified soft tissue disorder related to use, overuse and pressure, left ankle and foot (principal); S91.302A Unspecified open wound, left foot, initial encounter (principal); X58.XXXA Exposure to other specified factors, initial encounter; Y93.89 Activity, other specified; E11.8 Type 2 diabetes mellitus with unspecified complications; Z87.39 Personal history of other diseases of the musculoskeletal system and connective tissue; Z98.890 Other specified postprocedural states; E11.69 Type 2 diabetes mellitus with other specified complication
CPT/HCPCS: 36591; 80048; 80053; 82550; 85025; 85652; 86140; 96365; J0878

== ENCOUNTER 2024-08-14 12:24 | Inpatient (IN) | payer MEDICARE, OTHER, SELFPAY ==
[2024-08-14] VITALS (25 sets, daily range): BP systolic 102–178; BP diastolic 72–98; PULSE 2–78; BMI 23.4
--- NOTE | 2024-08-14 08:57 | ED.GENMED ---
History of Present Illness
General
Chief Complaint: Breathing Problem
Source: patient
Exam Limitations: none
Time Seen by Provider: 08/14/24 08:40
Nursing documentation reviewed up to this point in time: agreed with
History of Present Illness
History of Present Illness:
64-year-old male presents emergency room complaining of shortness of breath. He had COVID 7 days ago. He is getting IV antibiotic infusions for cellulitis of his left lower leg.
Past History
Past History
ED Past Medical History: HTN, IDDM, Psychiatric (Anxiety) and Other (Low back pain)
ED Past Surgical History: Orthopedic (Back surgeries) and Other (Amputation left fifth toe)
Social History
Tobacco: Non-smoker
Alcohol: Occasional
Drug: None
Personal:
Living: other (Resides with brother )
Employment: Disabled
Family History
Family History: Other (Noncontributory)
Review of Systems
Review of Systems
Allergies reviewed?: Yes
All Other Systems: Not applicable
Constitutional: Reports no symptoms
EENT: Reports no symptoms
Respiratory: Reports cough and trouble breathing
Cardiac: Reports no symptoms
ABD/GI: Reports no symptoms
: Reports no symptoms
Musculoskeletal: Reports no symptoms
Skin: Reports no symptoms
Neurological: Reports no symptoms
Endocrine: Reports no symptoms
Hematologic/Lymphatic: Reports no symptoms
Psychiatric: Reports no symptoms
Phy Exam
Physical Exam
Physical Exam:
Physical Exam
General: Temperature 100.1
Neck: supple. no meningeal signs. normal posterior pharynx
Heart: s1/s2 regular rate and rhythm, no murmur. equal radial
pulses.
HEENT: Pupils equal round reactive to light, EOMI
Lungs: no acute respiratory distress. clear bilaterally
Abdomen: normal bowel sounds. not tender. no CVAT
Neuro: alert and oriented. no focal neurological deficits cranial nerves II through XII intact
Skin: no rash
Psychiatric: well kept. interactive and cooperative
Extremities: no edema. no calf tenderness. negative homans. good distal pulses
Scores
Heart Failure Risk
Heart Failure Risk Score: Yes
History of Stroke or TIA: No
History of intubation for respiratory distress: No
Heart rate on ED arrival >/= 110: No
SaO2 <90% on arrival on room air: Yes
HR >/=110 during 3min walk test (or too ill to perform test): Yes
ECG has acute ischemic changes: No
Urea >/=12mmol/L (BUN 33.6mg/dL): Yes
Serum CO2>/=35mmol/L: No
Troponin I or T elevated to CO Level (0.4mg/dL): No
NT-proBNP >/=5,000ng/L (5,000pg/ml): Yes
HF Risk Score: 5
Admission Status: VERY HIGH RISK 39.8% Consider admission to hospital
Course
Orders/Labs/Results
Orders:
Orders
08/14/24 08:40
Cardiac Monitoring- Treatment ONCE
O2 Therapy [RESP] Stat
Nasal Cannula Liter Flow: 2 LPM
Titrate/Wean O2 to maintain O2 sat greater than (%): 92
08/14/24 08:41
CR Chest Portable - 1 View Urgent
Comment:
Reason For Exam: short of breath
Reason Study Needs to be Portable: Patient Unstable
08/14/24 08:59
Basic Metabolic Panel Urgent
Complete Blood Count/With Diff Urgent
Lactic Acid Q4H
Comment: CANCEL 2nd LACTIC ACID IF 1st LACTIC ACID IS LESS THAN 2
NT-proBNP Urgent
Blood Culture Q30M
JOSEFA Source: Blood/Venous
Specimen Description:
08/14/24 09:25
Blood Culture Q30M
JOSEFA Source: Blood/Venous
Specimen Description:
08/14/24 09:38
Potassium Urgent
08/14/24 10:12
Furosemide [Lasix] 40 mg IV NOW STA
08/14/24 10:17
Cefepime HCl [Maxipime] 1,000 mg IV NOW STA
08/14/24 10:18
Vancomycin 1 Gram/200 ml [Vancocin] 1 gram in 200 ml IV NOW
08/14/24 10:48
Sterile Water [Sterile Water For Injection] 10 ml .ROUTE .[facility]
08/14/24 11:40
Admit/Transfer Patient As Directed
Co-Sign Provider:
Level of Care: Inpatient admission
Assign to:: ICU
Physician / Group: Mirsky/Hospitalist
Diagnosis: Respiratory Distress
Reason for Hospitalization: Respiratory Distress
Covid-19
HFpEF
Expected length of stay greater than two midnights?: Yes
ELOS- Estimated Length of Stay in days: 7
I certify the patient meets the requirements for IP care: Yes
08/14/24 11:43
Code Status As Directed
Resuscitation Status: Full Code
08/14/24 11:54
Sputum Culture [Respiratory Culture/Gram Stain] Routine
JOSEFA Source: Sputum
Specimen Description:
08/14/24 11:58
COVID-19 Antigen Urgent
Source: Nasal Swab
Abnormal Lab Results
08/14/24 08/14/24
08:59 11:52
WBC 17.6 H 10^3/uL
(4.8-10.8)
RBC 2.93 L 10^6/uL
(4.70-6.10)
Hgb 8.2 L g/dL
(13.0-18.0)
Hct 24.8 L %
(39.0-52.0)
RDW 16.3 H %
(11.5-14.5)
Abs Immat Gran (auto) 0.3 H 10^3/uL
(0-0.05)
Absolute Neuts (auto) 15.7 H 10^3/uL
(1.4-6.5)
Absolute Lymphs (auto) 0.4 L 10^3/uL
(1.2-3.4)
Absolute Monos (auto) 1.0 H 10^3/uL
(0.1-0.6)
Immature Gran % 1.5 H %
(0-0.5)
Neutrophils % 89.4 H %
(42.2-75.2)
Lymphocytes % 2.1 L %
(20.5-51.1)
Carbon Dioxide 17 L mmol/L
(22-30)
BUN 81 H mg/dl
(9-20)
Creatinine 3.1 H mg/dL
(0.7-1.3)
Glucose 222 H mg/dl
(70-99)
Calcium 8.3 L mg/dl
(8.4-10.2)
POC Glucose 245 H mg/dl
(70-99)
08/14/24 08:59
08/14/24 09:38
Vital Signs
Initial and Last Documented VS:
Initial Vital Signs
Temp Pulse Ox
100.1 F 87
08/14/24 08:33 08/14/24 08:33
Last Documented Vital Signs
Temp Pulse Resp BP Pulse Ox
100.1 F 81 27 165/77 96
08/14/24 08:33 08/14/24 12:00 08/14/24 12:00 08/14/24 12:00 08/14/24 12:00
MDM/Problems Addressed
Differential Diagnosis Includes:
Pneumonia, CHF
MDM/Problems Addressed:
64-year-old male with hypoxia, pneumonia, CHF. Admit to hospitalist. IV cefepime and vancomycin given. Suspect superimposed infection after COVID.
Chronic conditions affecting care: Cardiomyopathy
Acute Exacerbation and/or Progression of Chronic Illness: Cardiomyopathy
*Radiology
Radiology exam reviewed: radiology read reviewed (Chest x-ray shows left-sided pneumonia)
*Pulse Oximetry
Patient hypoxic: yes
*Critical Care Note
Total Time (30-74mins, 75-104mins- exclusive of procedures): Not Applicable
ED Attending Note
-
Portions of this chart may have been created with voice recognition software.� Occasional wrong word or��sound alike� substitutions may have occurred due to the inherent limitations of voice recognition software.
Discharge Plan
Departure
Patient Disposition: Admit
Date of Disposition: 08/14/24
Time of Disposition: 10:19
Admit to: ICU
Presentation/result/management discussed w/ accepting MD/DO: Hospitalist
Patient with high blood pressure during this ER visit?: Yes
Condition: Fair
Discharge Problem:
Pneumonia, IVY (acute kidney injury), Acute exacerbation of CHF (congestive heart failure)
Interventions
Interventions:
*Risk Screen - Suicide Last Done: 08/14/24 08:33
*Neglect/Abuse Screening Last Done: 08/14/24 08:33
ED- Fall Risk Assessment Last Done: 08/14/24 09:08
*ED COVID-19 Vaccine History Last Done: 08/14/24 09:07
ED- Cardiac Assessment Last Done: 08/14/24 09:08
ED- Pulmonary Assessment Last Done: 08/14/24 09:08
[2024-08-14 09:15] LABS: % Basophils 0.2 % (0-2); % Eosinophils 1.3 % (0-6); % Immature Granulocytes 1.5 % (0-0.5); % Lymphocytes 2.1 % (20.5-51.1); % Monocytes 5.5 % (1.7-9.3); % Neutrophils 89.4 % (42.2-75.2); Absolute Eosinophils 0.2 10^3/uL (0-0.7); Absolute Immature Granulocytes 0.3 10^3/uL (0-0.05); Absolute Lymphocytes 0.4 10^3/uL (1.2-3.4); Absolute Neutrophils 15.7 10^3/uL (1.4-6.5); Hematocrit 24.8 % (39.0-52.0); Hemoglobin 8.2 g/dL (13.0-18.0); Mean Corp Hgb Conc. 33.1 g/dL (33.0-37.0); Mean Corpuscular Volume 84.6 fL (80.0-94.0); Nucleated Red Blood Cells % 0 % (-); Platelet Count 388 10^3/uL (130-400); Red Blood Cell Count 2.93 10^6/uL (4.70-6.10); Red Cell Dist. Width 16.3 % (11.5-14.5); White Blood Cell Count 17.6 10^3/uL (4.8-10.8)
[2024-08-14 09:32] LABS: Blood Urea Nitrogen 81 mg/dl (9-20); Estimated Creatinine Clearance 29 ml/min; Glucose 222 mg/dl (70-99); NT-proBNP > 27000 pg/ml; Sodium 139 mmol/L (135-145); eGFR 21.76
[2024-08-14 09:33] LABS: Calcium 8.3 mg/dl (8.4-10.2); Carbon Dioxide 17 mmol/L (22-30); Chloride 106 mmol/L (98-107)
[2024-08-14 09:58] LABS: Potassium 4.5 mmol/L (3.5-5.1)
[2024-08-14] MEDS: MAXIPIME 1000 MG IV (11:09)
--- NOTE | 2024-08-14 11:21 | W.PN.HOSP.TC ---
Today's Communication/Plan
-
admit ICU
Assessment / Plan
Assessment / Plan
Multifactorial respiratory distress, Hypoxemia
pt looks ill. SaO2 on room air was 84%, pt placed on 5 L/M, now 93%
Recent Covid infection, was tx with Molnupiravir
CXR: Findings suggesting moderate left upper and lower lobe and moderate right lower lobe pneumonia. Progressed.
CKD4
seen by nephrology during recent hospitalization
Left foot osteomyelitis on Daptomycin
HFpEF
chronic anemia
essential HTN
NIDDM
P:ICU
continue oxygen
Consult Cardio, CCM, Nephrology, ID
Full Code
see dictated note
Anticipated Discharge: > 48 hours
Subjective/Interval History
-
Date of Service: August 14, 2024
Shortness of breath has worsened since dc
Objective Data
-
Labs:
Laboratory Results
08/14/24 08/14/24
08:59 09:38
WBC 17.6 H
Hgb 8.2 L
Hct 24.8 L
Plt Count 388
Sodium 139
Potassium 4.5
Chloride 106
Carbon Dioxide 17 L
BUN 81 H
Creatinine 3.1 H
Glucose 222 H
Calcium 8.3 L
Total Bilirubin Cancelled
AST Cancelled
ALT Cancelled
Alkaline Phosphatase Cancelled
Vital Signs:
Vital Signs
Temp Pulse Resp BP Pulse Ox
100.1 F 89 26 178/79 93
08/14/24 08:33 08/14/24 09:30 08/14/24 09:30 08/14/24 09:00 08/14/24 09:30
Review of Systems
-
History Source: Patient and Physician
Constitutional: Reports Fever (100.1)
Respiratory: Reports Trouble Breathing
Cardiac: Denies Chest Pain
Abdomen/GI: Reports No Symptoms
Skin: Reports Rash (left foot infection)
Physical Exam
-
General: Well Developed, Well Nourished, Conversant and Appears Chronically Ill
HEENT: Normocephalic, Atraumatic and Moist Mucous Membranes
Respiratory: Decreased Breath Sounds; Negative Wheezes
Cardiac: Regular Rhythm and S1/S2
GI: Soft, Nontender and Nondistended
Musculoskeletal: Edema, Right Lower Extrem and Edema, Left Lower Extrem
[2024-08-14] MEDS: VANCOCIN 200 IV (11:37)
[2024-08-14 11:54] LABS: Glucose - Point of Care 245 mg/dl (70-99)
--- NOTE | 2024-08-14 11:59 | CON.CAR ---
Consultation
Consultation Request
Date/Time Consultation Requested: 07/14/2024
Date/Time Consultation Performed: 07/14/2024
Requesting Provider: Dr. Bagley
Performing Provider: Dr. Nuñez
Reason for Consultation: Heart failure
Medical History
-
Chief Complaint: Shortness of breath, weakness
History of Present Illness:
Luis Meier is a 64-year-old male with hypertension, hyperlipidemia, type 2 diabetes mellitus with diabetic neuropathy, MRSA bacteremia with left foot osteomyelitis (on daptomycin), chronic kidney disease, and HFpEF who Was just discharged on
08/08/2024 for COVID-19 pneumonia, heart failure with preserved EF Cellulitis of the lower extremity presents for a recurrent shortness of breath. He reports he felt okay for the first day but then gradually felt worse and worse, he is very
fatigued and short of breath. Denies any fever but has chills. Has not really had the strength to weigh himself daily. He has tried to cut back on his fluid intake.
In the ED he received cefepime, vancomycin for pneumonia. Furosemide wasn't given due to rising cr.
Past Medical History
Past Medical History: CHF (HFpEF), HTN, Hypercholesterolemia, NIDDM, Renal Failure (CKD) and Other (MRSA bacteremia [on daptomycin])
Social History
Tobacco: Non-Smoker
Alcohol: None
Drug: None
Personal:
Living: With Family (Brother)
Employment: Retired ([employer])
Family History
Family History: Reviewed & Not Pertinent (Denies early CAD and SCD.)
Allergies / Home Medications
Allergy/AdvReac Type Severity Reaction Status Date / Time
No Known Allergies Allergy Verified 08/14/24 08:35
�Medication �Instructions �Recorded �Confirmed �Type
bupropion HCl 150 mg tablet,12 hr 150 mg PO BID Depression 11/11/23 08/14/24 History
sustained-release (Wellbutrin SR)
lorazepam 1 mg tablet 1 mg PO TID Anxiety 11/11/23 08/14/24 History
gabapentin 300 mg capsule 300 mg PO BID pain 07/09/24 08/14/24 History
insulin lispro protamine-lispro 0 unit SC AC Diabetes 07/09/24 08/14/24 History
100 unit/mL (75-25) subcutaneous
pen (Humalog Mix 75-25 KwikPen)
lisinopril 40 mg tablet 40 mg PO DAILY Blood Pressure 07/09/24 08/14/24 History
DAPTOmycin [Cubicin] 800 mg As Directed mls/hr IV Q48H 07/23/24 08/14/24 Rx
Infection
carvedilol 6.25 mg tablet 6.25 mg PO BID Heart Disease/BP 08/04/24 08/14/24 History
furosemide 40 mg tablet (Lasix) 40 mg PO MOWEFR@0800 Fluid 08/04/24 08/14/24 History
Retention/Swelling
sodium bicarbonate 650 mg tablet 650 mg PO BID #60 tabs 08/08/24 08/14/24 Rx
Review of Systems
-
All other systems: Negative unless noted
Physical Exam
Vital Signs
Temp Pulse Resp BP Pulse Ox
100.1 F 84 36 169/84 95
08/14/24 08:33 08/14/24 11:55 08/14/24 11:55 08/14/24 11:00 08/14/24 11:55
Lab Results
08/14/24 08:59
08/14/24 09:38
Ivh-L-Uutgmzvwiyr Pept > 49625 pg/ml 08/14/24 08:59
Physical Exam
General: Well Developed and Respiratory Distress (Moderate)
HEENT: Normocephalic
Respiratory: Other (Labored breathing, with every inhale he coughs so unable to hear parenchymal sounds no wheezing)
Cardiac: S1/S2, Regular Rhythm and Peripheral Edema (1+ bilaterally up to the mid legs)
GI: Soft
Genito-urinary: Costovertebral Angle Tend
Musculoskeletal: No Clubbing and No Cyanosis
Neuro: AO x 3
Impression / Plan
-
64M with hypertension, hyperlipidemia, type 2 diabetes mellitus, CKD4 (known diabetic nephropathy), with diabetic neuropathy, MRSA bacteremia with left foot osteomyelitis (on daptomycin), chronic kidney disease, HFpEF recent discharge after
hospitalization for lower extremity cellulitis, COVID-19 pneumonia and HFpEF who presented to the emergency department with increasing weakness and shortness of breath after discharged just a couple days ago.
Clam Dredger: Dr. Nuñez
Acute hypoxic respiratory insufficiency
-Moderate distress with increased respiratory rate.
- Mixed etiology
-Recent COVID19 pneumonia 10 days ago, question superinfection
- Acute on chronic HFpEF
-Asked nurse to apply BiPAP, high risk situation
Acute on chronic HFpEF:
-JVP elevated when sitting upright, trace edema bilaterally.
-Elevated creatinine noted, suspect cardiorenal etiology
-Will give IV Lasix now and reassess
-Nephrology also consulting
-back on PO lasix per nephrology recommendations
Covid19 pneumonia
-Acute antigen now negative but still likely causing issues.
Question superinfection, ID and pulmonary consulted
Acute on CKD4, diabetic nephropathy
-Nephrotic range protein on last admission
-High risk of further deterioration
Nephrology following as well-
Hx osteomyelitis, chronic daptomycin
Chronic anemia, perhaps mixed etiology=> CKD, inflammation, per medicine/nephrology
-Worsening again, did receive transfusion last hospitalization, may need to consider again.
Hypertension, stable,
Dyslipidemia, LDL above goal last admission
Type 2 diabetes mellitus, Tx per primary team
Overall he is critically ill with high oxygen demand and respiratory failure with risk for the need of mechanical support.
Critical care time spent in his care 32 minutes.
Data Reviewed
-
EKG: Tracing Personally Visualized and interpreted
Radiology: Image Personally Visualized and interpreted (Appearance of right lower lobe consolidation and left lower lobe consolidation. Official report is moderate left upper and lower lobe and moderate right lower lobe pneumonia that has
progressed.) and Report Reviewed by me
Medical Tests (Nuc Med, Echo etc): Discussed with Physician (Discussed with Dr. Bagley, Dr. Stein, and Dr. Valera Will give Lasix now and start BiPAP. High risk of renal dysfunction worsening)
Labs: Labs Reviewed by me (White count increasing, creatinine up from 2.7 to 3.1 cm, there is a gap metabolic acidosis. proBNP greater than 27,000)
--- NOTE | 2024-08-14 12:28 | CON.ID ---
Consultation
-
Date/Time Consultation Requested: 08/14/24 11:48
Date/Time Consultation Performed: 08/14/24 12:29
Requesting Provider: Dr Bagley
Performing Provider: Dr Oscar
Reason for Consultation: respiratory distress - probable pneumonia
Chief Complaint / Past History
Chief Complaint
shortness of breath
History of Present Illness
Mr Meier is a 64 year old male with CHF preserved EF, CKD4 with nephrotic range proteinuira (biopsy proven diabetic nephropathy), DM2, L foot osteomyelitis currently on on IV daptomycin through 08/25/2024, to complete a 6-week course. He has had
multiple recent admissions for CHF including most recently 08/04- 08/08. he was diuresed. During his last stay he was diagnosed with COVID-19 (08/05) and was started on molnupiravir x5 days and decadron which was stopped on discharge approximately
4 days. He now represents for nonproductive cough, increased dyspnea.
Last dose of daptomycin was 08/12, next dose due today
Since arrival here he has been afebrile, bp stable, pulse 80s, RR 20s-30s, currently saturating 5% on 5L NC, wbc 17.6, hgb 8.2, plt 388, L shift is noted, cr 2.7 now 3.1, lactic acid 1.0, bnp >47618, 07/12 IgG 1200, IgA 900, IgM 31, 08/05 covid ag
positive, CXR: 'moderate left upper and lower lobe and moderate right lower lobe pneumonia. Progressed,' blood cultures x2 in progress, covid ag pending, sputum culture pending, tissue culture 07/14 MRSA. Currently on daptomycin, had a dose of
vancomycin and cefepime in the ER. ID is consulted for assistance with management.
Past History
Additional Past Medical History:
DM2
Peripheral Neuropathy
Hypertension
CKD III
Anxiety / Depression
Lumbar DDD
Additional Past Surgical History:
Lumbar discectomy, lumbar fusion with HW
Lumbar revision with rhizotomy
Cholecystectomy
Left 5th toe amp.
Allergy History:
No Known Allergies Allergy (Verified 08/14/24 08:35)
Medications Reviewed: Yes
Social History
Tobacco: Non-Smoker
Alcohol: None
Drug: None
Family History
Family History: Not Pertinent
Review of Systems
Review of Systems
General: Negative Fever or Chills
All systems: All other systems were reviewed and were negative
Vital Signs
Temp Pulse Resp BP Pulse Ox
100.1 F 81 27 165/77 96
08/14/24 08:33 08/14/24 12:00 08/14/24 12:00 08/14/24 12:00 08/14/24 12:00
Physical Exam
Physical Exam
Constitutional: No Acute Distress
Cardiovascular: Regular Rate and S1/S2; Negative Murmur or Rub
Pulmonary: Coarse; Negative Symmetric, Wheezes, Rales or Rhonchi
Gastrointestinal: Soft, Non Tender, Non Distended and Normal Bowel Sounds
Extremities: Other (L foot surgical site fully healed no erythema, warmth, swelling or dehiscence)
Skin: Warm and Dry; Negative Rash or Jaundice
Wound: Other
Neurological: Awake
Lab / Diagnostic Study Results
08/14/24 08:59
08/14/24 09:38
Abs Immat Gran (auto) 0.3 10^3/uL (0-0.05) H 08/14/24 08:59
Absolute Neuts (auto) 15.7 10^3/uL (1.4-6.5) H 08/14/24 08:59
Absolute Lymphs (auto) 0.4 10^3/uL (1.2-3.4) L 08/14/24 08:59
Absolute Monos (auto) 1.0 10^3/uL (0.1-0.6) H 08/14/24 08:59
Absolute Basos (auto) 0.0 10^3/uL (0-0.2) 08/14/24 08:59
Immature Gran % 1.5 % (0-0.5) H 08/14/24 08:59
Neutrophils % 89.4 % (42.2-75.2) H 08/14/24 08:59
Lymphocytes % 2.1 % (20.5-51.1) L 08/14/24 08:59
Monocytes % 5.5 % (1.7-9.3) 08/14/24 08:59
Eosinophils % 1.3 % (0-6) 08/14/24 08:59
Basophils % 0.2 % (0-2) 08/14/24 08:59
Lactic Acid Cancelled 08/14/24 12:45
Microbiology Results
Micro:
08/14/24 09:25 Blood Culture - Pending
Blood/Venous
08/14/24 08:59 Blood Culture - Pending
Blood/Venous
Assessment / Plan
[facility] Pneumonia (on OPAT)
Resolved COVID- day 10, s/p molnupiravir/decadro; antigen testing negative
CKD4 - nephrotic range proteinuria
CHF
Osteomyelitis of the L foot due to MRSA
- blood cultures x2
- sputum culture if able to obtain
- covid ag negative, influenza ag ordered
- had vancomcyin the in ER, check random level in the AM
- hold daptomycin for now - likely restart 08/16; will complete the course 08/25
- given recent vancomycin and CKD4, will start meropenem for now, deescalation as able
- follow clinically
[2024-08-14 12:52] LABS: COVID-19 Antigen Negative (Negative)
--- NOTE | 2024-08-14 13:18 | CON.INTV ---
Consultation
Consultation Request
Date/Time Consultation Requested: 08/14/24
Date/Time Consultation Performed: 08/14/24
Performing Provider: Sarita
Reason for Consultation: PNA
Medical History
-
History of Present Illness:
Patient is a 64-year-old male with previous history of hypertension, diabetes, chronic kidney disease presenting to ER with complaints of shortness of breath. He had recently been diagnosed with acute COVID illness 7 days prior. He had been
receiving IV antibiotic infusions for cellulitis of his left lower extremity. Was reportedly 84% on 5 L in ER, chest x-ray demonstrating bibasilar infiltrates with left greater than right. proBNP greater than 27,000, there is metabolic acidosis
with elevated creatinine. He is not currently on pressors, he is admitted to ICU for severe sepsis.
Past Medical History
Past Medical History: Other (see list below)
Social History
Tobacco: Non-smoker
Alcohol: None
Drug: None
Family History
Family History: Reviewed & Not Pertinent
Allergies / Home Medications
Allergies
Allergy/AdvReac Type Severity Reaction Status Date / Time
No Known Allergies Allergy Verified 08/14/24 08:35
Home Medications
�Medication �Instructions �Recorded �Confirmed �Last Taken �Type
bupropion HCl 150 mg tablet,12 hr 150 mg PO BID Depression 11/11/23 08/14/24 08/11/24 History
sustained-release (Wellbutrin SR)
lorazepam 1 mg tablet 1 mg PO TID Anxiety 11/11/23 08/14/24 08/11/24 History
gabapentin 300 mg capsule 300 mg PO BID pain 07/09/24 08/14/24 08/11/24 History
insulin lispro protamine-lispro 0 unit SC AC Diabetes 07/09/24 08/14/24 Unknown History
100 unit/mL (75-25) subcutaneous
pen (Humalog Mix 75-25 KwikPen)
lisinopril 40 mg tablet 40 mg PO DAILY Blood Pressure 07/09/24 08/14/24 08/12/24 History
DAPTOmycin [Cubicin] 800 mg As Directed mls/hr IV Q48H 07/23/24 08/14/24 07/31/24 Rx
Infection
carvedilol 6.25 mg tablet 6.25 mg PO BID Heart Disease/BP 08/04/24 08/14/24 08/11/24 History
furosemide 40 mg tablet (Lasix) 40 mg PO MOWEFR@0800 Fluid 08/04/24 08/14/24 08/11/24 History
Retention/Swelling
sodium bicarbonate 650 mg tablet 650 mg PO BID #60 tabs 08/08/24 08/14/24 08/12/24 Rx
Review of Systems
-
History Source: Patient
All other systems: Negative unless noted
Vitals / Labs / Diagnostic Testing
Vital Signs
Temp Pulse Resp BP Pulse Ox
100.1 F 81 27 165/77 96
08/14/24 08:33 08/14/24 12:00 08/14/24 12:00 08/14/24 12:00 08/14/24 12:00
Lab Data
08/14/24 08:59
08/14/24 09:38
Diagnostic Testing:
Physical Exam
-
HEENT: Normocephalic, Anicteric and Moist Mucous Membranes
Cardiovascular: S1/S2 and Regular Rhythm
Respiratory: Rales and Non-Labored Respirations
GI: Soft, Non Distended and Non Tender
Neurology: Awake, Alert, Oriented and No Motor Deficits
Skin: Warm, Dry and Good Color
General: Respiratory Distress (mild-mod, tachypneic), Comfortable and Poor Appetite
Assessment
-
Patient is a 64-year-old male with previous history of hypertension, diabetes, chronic kidney disease presenting to ER with complaints of shortness of breath. He had recently been diagnosed with acute COVID illness 7 days prior. He had been
receiving IV antibiotic infusions for cellulitis of his left lower extremity. Was reportedly 84% on 5 L in ER, chest x-ray demonstrating bibasilar infiltrates with left greater than right. proBNP greater than 27,000, there is metabolic acidosis
with elevated creatinine. He is not currently on pressors, he is admitted to ICU for severe sepsis.
Severe sepsis, presumed pneumonia
Recent COVID illness
Acute heart failure exacerbation, proBNP greater than 27,000
Metabolic acidosis
Acute kidney injury
Hyperglycemia
Leukocytosis
Abnormal chest x-ray
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
History of MRSA cellulitis
CKD 4
IDDM
Nephrotic range proteinuria
Positive proteinase 3 antibodies
Hypertension
Chronic anemia
Left foot osteomyelitis treated with daptomycin
Anxiety
Plan
No current signs of metabolic encephalopathy or MS changes/following commands
Denies pain at this time.
Pain/sedation: PRN
RASS goals: 0
Hemodynamically stable, not requiring pressors.
Cardiac history reviewed--recent history of HFpEF, discharged 08/08/24
proBNP >10087
Prior ECHO reviewed indicating preserved function
Cards eval obtained
Monitor on telemetry
Oxygen needs: currently on 6L, but can try BIPAP if needed overnight
Prior history of lung disease: none, but has had recent history of CHF and COVID illness
Supplemental O2 as indicated to maintain sats > 89%
CXR reviewed indicating L>R infiltrate
Can obtain CT to eval if not improving
NPO while tachypneic, resume diet when able
Commercial Diver recommendations
Aspiration precautions, HOB > 30 degrees
Speech therapy eval
GI prophylaxis if indicated for mechanical ventilation >48 hours, prior history of GERD, stress ulcer formation in the critically ill
IVY present, CKD stage 4
Consult renal --recurrent volume issues, unclear candidacy for HD
Void trials
Follow urine output, critical I/Os
Replete electrolytes as needed
Fever and increased WBC on presentation, suspect post COVID PNA
Started on empiric antibiotics, ID consult obtained
Cultures sent/pending
Blood
Sputum
Recent history of MRSA infection
Follow fever trend, WBC count
Lactate not elevated on admission
CBC stable, no signs of bleeding or coagulopathy.
DVT prophylaxis as assessed based on risk, including mechanical SCDs
Can transfuse if indicated for Hb <7, plt < 10
No prior h/o thyroid disease
H/o diabetes, can continue on home meds, SS for coverage
HbA1c 5.7 (07/10/24) down from 14.1 ( 11/12/23)
We will follow
Diagnostic Data
Chest X-Ray: 08/14/24- Findings suggesting moderate left upper and lower lobe and moderate right lower lobe pneumonia. Progressed.
CT Scan:
Echo: 07/10/24- 1. Mild concentric LVH with EF 60-65%
2. Mild RVE
3. LAE
4. No evidence of significant valvular disease
PFT's:
Reports and relevant images were personally reviewed.
-----
Critical care time 75 mins -- this includes review of history, physical exam, medications, hemodynamic/ventilator parameters, laboratory data, imaging and discussion with house staff, pharmacy, respiratory therapy, signs and displays sales representative, and nursing.
--- NOTE | 2024-08-14 14:30 | VATNOTE ---
Contacted radiologist to re-review chest x-ray as no mention of PICC line in report. Reading of CXR vague about PICC tip placement. Asked radiologist if repeat film was needed or if we could use the PICC line as the tip was 'most likely' in the SVC.
Per radiologist, we can use the PICC line if there is blood return from the PICC. PCN notified and PCN confirmed blood return from PICC lumens. OK to used.
--- NOTE | 2024-08-14 14:30 | PTCARENOTE ---
Rec'd patient from the ED @ 1335. Patient alert and oriented. Drowsy. NSR on tele monitor. +1 edema in b/l LE. Palpable pulses. Pulse ox 95-97% on 5L nc. Tachypneic, rate in the high 20's, low 30's. Crackles auscultated 1/2 up bilaterally. +Cough,
non-productive. +BS. Urinal provided. Left foot assessed- scabbed, callum. Abrasion on right knee. Patient states he has fallen multiple times lately due to weakness and balance issues. Vitals stable. Right PICC in place. VAT contacted for confirmation
to use.
[2024-08-14] MEDS: MERREM 500 MG IV ×2 (14:34→21:44)
[2024-08-14] MEDS: STERILE WATER FOR INJECTION 10 ML IV ×2 (14:34→21:43)
--- NOTE | 2024-08-14 14:46 | PTCARENOTE ---
Addendum entered by Swathi Weir RN 08/14/24 15:32:
80* IV Lasix
Original Note:
RT at bedside to place patient on BiPAP mask. Settings: 12/5 4L. Pulse ox 97%. 40 IV Lasix ordered.
[2024-08-14] MEDS: LASIX 80 MG IV (15:00)
[2024-08-14 15:06] LABS: INR 1.33
[2024-08-14 15:12] LABS: Magnesium 2.2 mg/dl (1.6-2.3)
--- NOTE | 2024-08-14 15:53 | W.CON.NEPH ---
Consultation
-
Date/Time Consultation Requested: 08/14/24 1454
Date/Time Consultation Performed: 08/14/24 1600
Requesting Provider: Ramos Martinez
Performing Provider: Nicky Hussein
Reason for Consultation: IVY with CKD
Medical History
-
Chief Complaint: CP, SOB
History of Present Illness:
The patient is a 63-year-old male with chronic kidney disease cr more recently at high 2 range s/p biopsy confirmed Diabetic nephropathy. He has a history of hypertension which has been controlled on the combinations of his carvedilol and
lisinopril. He has longstanding diabetes maintained chronically on insulin and has microvascular complications including diabetic neuropathy, nephropathy. chr anemia with heme +ve stool, L foot osteomyelitis currently on 6week IV daptomycin
through 08/25/2024 from June admit. Who was just discharged on on 08/08 after treating for COVID(completed Molnupiravir, steroid), CHF and COPD. He had IVY cr peak at 3.6 and improved to 2.6 with holding diuretics and lisinopril, these were
resumed at d/c. presents today with SOB and cough. He noted hypoxic 84% on 5lit and CXR shows bibasilar infiltrates. His cr was at 2.7 on 08/12 and today at 3.1 with met acidosis bicarb of 17. Nephrology consulted for IVY and CHF. Hb today at 8.2,
WBC high 17.6. He reports cough with phlegm, No fever or chills. Fatigue+. No n/v or diarrhea or abd pain. Is currently on BiPAP. Received 80 mg of Lasix and urinated 600 cc the prevoid bladder scan of 1100cc. She reports not so compliant with
his fluid restriction with dry mouth and cough.
Past Medical History
DM II, biopsy-proven diabetic nephropathy
Hypertension
CKD 3g (1.6)
Lumbar DDD
Peripheral Neuropathy
Anxiety
Depression
DCHF
COVID 07/2024
Past Surgical History: Other (Lumbar discectomy with fusion Cholecystectomy Left foot 4th and 5th metatarsal amputation)
Social History
Tobacco: Non-Smoker
Alcohol: None
Drug: None
Family History
no CKD
Family History: Not Pertinent
Allergies / Home Medications
Allergy/AdvReac Type Severity Reaction Status Date / Time
No Known Allergies Allergy Verified 08/14/24 08:35
�Medication �Instructions �Recorded �Confirmed �Type
bupropion HCl 150 mg tablet,12 hr 150 mg PO BID Depression 11/11/23 08/14/24 History
sustained-release (Wellbutrin SR)
lorazepam 1 mg tablet 1 mg PO TID Anxiety 11/11/23 08/14/24 History
gabapentin 300 mg capsule 300 mg PO BID pain 07/09/24 08/14/24 History
insulin lispro protamine-lispro 0 unit SC AC Diabetes 07/09/24 08/14/24 History
100 unit/mL (75-25) subcutaneous
pen (Humalog Mix 75-25 KwikPen)
lisinopril 40 mg tablet 40 mg PO DAILY Blood Pressure 07/09/24 08/14/24 History
DAPTOmycin [Cubicin] 800 mg As Directed mls/hr IV Q48H 07/23/24 08/14/24 Rx
Infection
carvedilol 6.25 mg tablet 6.25 mg PO BID Heart Disease/BP 08/04/24 08/14/24 History
furosemide 40 mg tablet (Lasix) 40 mg PO MOWEFR@0800 Fluid 08/04/24 08/14/24 History
Retention/Swelling
sodium bicarbonate 650 mg tablet 650 mg PO BID #60 tabs 08/08/24 08/14/24 Rx
Review of Systems
-
All complete 12 point review of system have been inquired and found negative other than stated in HPI
Physical Exam
Vital Signs
Vital Signs
Temp Pulse Resp BP Pulse Ox
98.1 F 67 26 146/72 96
08/14/24 15:00 08/14/24 15:45 08/14/24 15:45 08/14/24 15:45 08/14/24 15:45
Lab Results
WBC 17.6 10^3/uL (4.8-10.8) H 08/14/24 08:59
RBC 2.93 10^6/uL (4.70-6.10) L 08/14/24 08:59
Hgb 8.2 g/dL (13.0-18.0) L 08/14/24 08:59
Hct 24.8 % (39.0-52.0) L 08/14/24 08:59
Plt Count 388 10^3/uL (130-400) 08/14/24 08:59
Sodium 139 mmol/L (135-145) 08/14/24 08:59
Potassium 4.5 mmol/L (3.5-5.1) 08/14/24 09:38
Chloride 106 mmol/L (98-107) 08/14/24 08:59
Carbon Dioxide 17 mmol/L (22-30) L 08/14/24 08:59
BUN 81 mg/dl (9-20) H 08/14/24 08:59
Creatinine 3.1 mg/dL (0.7-1.3) H 08/14/24 08:59
eGFR 21.76 08/14/24 08:59
Glucose 222 mg/dl (70-99) H 08/14/24 08:59
Calcium 8.3 mg/dl (8.4-10.2) L 08/14/24 08:59
Phosphorus 5.0 mg/dl (2.5-4.5) H 08/14/24 14:46
Dio-P-Efqdkxshxoh Pept > 92973 pg/ml 08/14/24 08:59
Albumin Cancelled 08/14/24 08:59
CXR:
IMPRESSION:
Findings suggesting moderate left upper and lower lobe and moderate right lower lobe pneumonia. Progressed.
There is a right-sided PICC line which extends caudally in the midline, difficult to see distally but most likely with tip in the SVC, patient slightly rotated to the left.
Physical Exam
General: Awake, Alert, Oriented, AOx3 and No Distress
HEENT: EOMI, Anicteric and Conjunctivae Clear
Respiratory: Crackels and Nonlabored Respirations
Cardiac: S1/S2 and Regular Rate/Rhythm
Breast: Deferred by me
Abdomen: Soft, Nontender and Nondistended
Musculoskeletal: Cyanosis and Edema (1+left>right)
Skin: No Rash
Neuro: Nonfocal/Grossly Intact
Psych: Mood/afflect pleasant, Insight/judgement good and Appropriate
Data Reviewed
-
Radiology: Report Reviewed by me, Discussed with Nurse and Discussed with Patient
Labs: Labs Reviewed by me, Discussed with Nurse and Discussed with Patient
Assessment/Plan
-
Impression:
Severe sepsis, presumed pneumonia
Acute hypoxic respiratory failure
Acute on chr DCHF
Resolved COVID
CKD4 baseline high 2 range
Metabolic acidosis
Anemia
Left Foot osteomyelitis
HTN
+PR3 Ab
Nephrotic range proteinuria of 5 g, biopsy-proven diabetic nephropathy
07/21/24: K biopsy nodular D nephropathy
IFTA mod to severe
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
Plan:
Recent multiple admits, now back with sob, suspect PNA and CHF
IVY-likely multifactorial, with sepsis, CHF
wt is higher than last d/c and CXR progressed with high BNP
agree with lasix
Abx adjusted per ID
dose meds renally
We have reviewed multiple occasions that he is at high risk of HD which he understands
hopefully escape HD this time too
hold lisinopril and avoid nephrotoxins
ok for po bicarb for met acidosis
monitor UOP and follow bladder scan
BP stable on BB
follow h/h, had few doses of IV fe last admit, reportedly had heme +ve stool before
d/w nursing and pt
labs in am
--- NOTE | 2024-08-14 16:41 | PTCARENOTE ---
No urine output post Lasix. Bladder scan >1100. Patient encouraged to void. Voided 650 cc tab urine. Head Of Sales Promotion at bedside.
[2024-08-14] MEDS: ATIVAN 1 MG PO ×2 (16:43→21:43)
[2024-08-14] MEDS: NOVOLOG FLEXPEN-MODERATE RESISTANCE 3 UNITS SC (16:51)
[2024-08-14 17:02] LABS: Glucose - Point of Care 208 mg/dl (70-99)
--- NOTE | 2024-08-14 18:07 | PTCARENOTE ---
Patient assisted to bedside commode. +BM and moderate void. Vitals stable.
--- NOTE | 2024-08-14 20:00 | PTCARENOTE ---
Received pt resting in bed, AAOx3, c/o frequent cough. Tessalon pearls and robitussin ordered. On 5L NC, spo2 91-94%. Lungs dim with crackles 1/[address] way up B/L. Cough non productive. Mild APODACA. SR on tele, HR 70s-80s. BP 150s-160s/70s-80s. HS meds
given. Afebrile. +1 LLE and trace RLE edema present. + pulses. + bowel sounds. Good appetite. Voided 600ml tab urine in urinal and mod. amt more in BSC. RICKS, using rolling walker with standby assist to stand at side of bed to urinate/use BSC. R
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 Call peters in reach.
Ex and son at bedside- updated on care.
[2024-08-14] MEDS: SODIUM BICARBONATE 650 MG PO (20:20)
[2024-08-14] MEDS: WELLBUTRIN SR (12 hour sustained release) 150 MG PO (20:20)
[2024-08-14] MEDS: COREG 6.25 MG PO (20:20)
[2024-08-14] MEDS: TESSALON PERLES 200 MG PO (20:20)
[2024-08-14] MEDS: NEURONTIN 300 MG PO (20:20)
[2024-08-14] MEDS: HEPARIN 5000 UNITS SC (20:20)
--- NOTE | 2024-08-14 21:48 | PTCARENOTE ---
Pt. OK for ex (Fara) to have information - her # [phone]. Son and brothers name listed in chart also.
[2024-08-14 22:05] LABS: Glucose - Point of Care 193 mg/dl (70-99)
[2024-08-15] VITALS (28 sets, daily range): BP systolic 123–171; BP diastolic 64–90; PULSE 2–82; BMI 22.1
--- NOTE | 2024-08-15 00:53 | PTCARENOTE ---
Pt. placed on bipap HS 12/5 w/ 4L bled through around 2230. Pt. resting on and off. No other changes
[2024-08-15] MEDS: ROBITUSSIN 200 MG PO ×2 (03:11→08:55)
[2024-08-15 03:45] LABS: Hematocrit 25.1 % (39.0-52.0); Hemoglobin 8.5 g/dL (13.0-18.0); Mean Corp Hgb Conc. 33.9 g/dL (33.0-37.0); Mean Corpuscular Hgb 28.1 pg (27.0-31.0); Mean Corpuscular Volume 83.1 fL (80.0-94.0); Mean Platelet Volume 9.9 fL (7.4-10.4); Platelet Count 422 10^3/uL (130-400); Red Blood Cell Count 3.02 10^6/uL (4.70-6.10); Red Cell Dist. Width 16.5 % (11.5-14.5); White Blood Cell Count 13.1 10^3/uL (4.8-10.8)
[2024-08-15 04:11] LABS: Blood Urea Nitrogen 80 mg/dl (9-20); Calcium 8.2 mg/dl (8.4-10.2); Carbon Dioxide 20 mmol/L (22-30); Chloride 106 mmol/L (98-107); Estimated Creatinine Clearance 28 ml/min; Glucose 137 mg/dl (70-99); Potassium 4.2 mmol/L (3.5-5.1); Sodium 138 mmol/L (135-145); eGFR 20.94
[2024-08-15] MEDS: TESSALON PERLES 200 MG PO (06:09)
[2024-08-15] MEDS: STERILE WATER FOR INJECTION 10 ML IV ×3 (06:09→21:00)
[2024-08-15] MEDS: MERREM 500 MG IV ×3 (06:09→21:01)
--- NOTE | 2024-08-15 06:31 | PTCARENOTE ---
Pt. came off bipap around 0200 because he said it was hurting his face despite readjustments of mask. Placed back on 4L NC. After standing at side of bed to void, pt. required 6L to recover back into mid 90s. Remains on 6L at this time, spo2 95%. AM
labs drawn. Cough medicine given PRN overnight. Pt. states he is feeling better this morning.
[2024-08-15 07:25] LABS: Glucose - Point of Care 167 mg/dl (70-99)
--- NOTE | 2024-08-15 07:31 | W.PN.INTV ---
Today's Communication / Plan
Recommendations
Doing better this AM, off BIPAP/tolerated 4 hours
Remains on 6L NC, wean as tolerated
Diuresis ongoing per team, following IOs, weights
Cards/renal following
ID following for PNA, MRP on, cultures still pending
PT/OT today
Transfer to floors, we will follow
Assessment
-
Patient is a 64-year-old male with previous history of hypertension, diabetes, chronic kidney disease presenting to ER with complaints of shortness of breath. He had recently been diagnosed with acute COVID illness 7 days prior. He had been
receiving IV antibiotic infusions for cellulitis of his left lower extremity. Was reportedly 84% on 5 L in ER, chest x-ray demonstrating bibasilar infiltrates with left greater than right. proBNP greater than 27,000, there is metabolic acidosis
with elevated creatinine. He is not currently on pressors, he is admitted to ICU for severe sepsis.
Severe sepsis, presumed pneumonia
Recent COVID illness
Acute heart failure exacerbation, proBNP greater than 27,000
Metabolic acidosis
Acute kidney injury
Hyperglycemia
Leukocytosis
Abnormal chest x-ray
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
History of MRSA cellulitis
CKD 4
IDDM
Nephrotic range proteinuria
Positive proteinase 3 antibodies
Hypertension
Chronic anemia
Left foot osteomyelitis treated with daptomycin
Anxiety
Plan
No current signs of metabolic encephalopathy or MS changes/following commands
Denies pain at this time.
Pain/sedation: PRN
RASS goals: 0
Hemodynamically stable, not requiring pressors.
Cardiac history reviewed--recent history of HFpEF, discharged 08/08/24
proBNP >59013
Prior ECHO reviewed indicating preserved function
Cards eval obtained
Monitor on telemetry
Lasix daily
Oxygen needs: currently on 6L, BIPAP nightly/PRN
Prior history of lung disease: none, but has had recent history of CHF and COVID illness
Supplemental O2 as indicated to maintain sats > 89%, wean as tolerated
CXR reviewed indicating L>R infiltrate
Repeat CXR in AM
Advance diet
Project Management Manager recommendations
Aspiration precautions, HOB > 30 degrees
Speech therapy eval if needed
GI prophylaxis if indicated for mechanical ventilation >48 hours, prior history of GERD, stress ulcer formation in the critically ill
IVY present, CKD stage 4
Renal following--recurrent volume issues, unclear candidacy for HD
Void trials
Follow urine output, critical I/Os
Replete electrolytes as needed
Fever and increased WBC on presentation, suspect post COVID PNA
Started on empiric antibiotics, ID consult obtained -- on MRP
Cultures sent/pending
Blood
Sputum
Recent history of MRSA infection
Follow fever trend, WBC count
Lactate not elevated on admission
CBC stable, no signs of bleeding or coagulopathy.
DVT prophylaxis as assessed based on risk, including mechanical SCDs
Can transfuse if indicated for Hb <7, plt < 10
No prior h/o thyroid disease
H/o diabetes, can continue on home meds, SS for coverage
HbA1c 5.7 (07/10/24) down from 14.1 ( 11/12/23)
Diagnostic Data
Chest X-Ray: 08/14/24- Findings suggesting moderate left upper and lower lobe and moderate right lower lobe pneumonia. Progressed.
CT Scan:
Echo: 07/10/24- 1. Mild concentric LVH with EF 60-65%
2. Mild RVE
3. LAE
4. No evidence of significant valvular disease
PFT's:
Reports and relevant images were personally reviewed.
-----
Critical care time 35 mins -- this includes review of history, physical exam, medications, hemodynamic/ventilator parameters, laboratory data, imaging and discussion with house staff, pharmacy, respiratory therapy, signal supervisor, and nursing.
Subjective Dataa
Subjective Data
Date of Service:
Date of Service: August 15, 2024
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
Subjective:
Tolerated 4 hours of BIPAP overnight, currently on 6L NC
No new complaints, feels his breathing is better
Objective Data
Data Reviewed
Vital Signs / I&O / Oxygen:
Vital Signs
Temp Pulse Resp BP Pulse Ox
98.9 F 81 30 167/73 95
08/15/24 03:23 08/15/24 06:00 08/15/24 06:00 08/15/24 05:00 08/15/24 05:00
Intake and Output
08/14/24 08/15/24 08/16/24
06:59 06:59 06:59
Intake Total 713 / 713
Output Total 2350 / 2350
Balance -1637 / -1637
SaO2 95
Nasal Cannula flow liters per 5
minute
Physical Exam
General: Comfortable and Other (NAD)
HEENT: Normocephalic, Anicteric and Moist Mucous Membranes
Cardiovascular: S1-S2 and Regular Rhythm
Respiratory: Crackles and Non-Labored Respirations
GI: Soft, Non Distended and Non Tender
Neurology: Awake, Alert, Oriented and No Motor Deficits
Skin: Warm, Dry and Good Color
Labs/Micro/Reports
Lab Data
08/15/24 03:17
08/15/24 03:16
Laboratory Results
08/14/24
14:46
PT 17.0 H
INR 1.33
APTT 40.0 H
Microbiology
08/14/24 14:46 Nasal Swab Influenza Types A & B (LAURA) - Final
Negative for Influenza A & B, NAAT
Negative results must be combined with clinical observations
and patient history.
Nucleic Acid Amplification test (NAAT)performed on the
[employer] platform.
[2024-08-15] MEDS: SODIUM BICARBONATE 650 MG PO ×2 (08:55→20:07)
[2024-08-15] MEDS: ATIVAN 1 MG PO ×3 (08:55→21:01)
[2024-08-15] MEDS: WELLBUTRIN SR (12 hour sustained release) 150 MG PO ×2 (08:55→20:07)
[2024-08-15] MEDS: NEURONTIN 300 MG PO ×2 (08:55→20:07)
[2024-08-15] MEDS: LASIX 40 MG PO (08:56)
[2024-08-15] MEDS: HEPARIN 5000 UNITS SC ×2 (08:56→20:07)
[2024-08-15] MEDS: COREG 6.25 MG PO ×2 (08:56→20:06)
[2024-08-15] MEDS: NOVOLOG FLEXPEN-MODERATE RESISTANCE 1 UNITS SC (08:56)
--- NOTE | 2024-08-15 09:04 | W.PN.ID1 ---
Date of Service
Date of Service: August 15, 2024
Today's Communication
acapella - sputum for culture if able
restart dapto tomorrow
c/w chris
Assessment / Plan
Probable Hospital Acquired Pneumonia
Resolved COVID- day 10, s/p molnupiravir/decadro; antigen testing negative
CKD4 - nephrotic range proteinuria
CHF
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
- blood cultures x2
- sputum culture if able to obtain - acapella
- covid ag negative, influenza ag neg 08/14
- had vancomcyin the in ER (despite OPAT dapto the day before), random level today 10; restart daptomycin tomorrow - dosing 10 mg/kg q48 hr - will complete the course 08/25
- given recent vancomycin and CKD4, c/w meropenem for now, deescalation as able
- follow clinically
Chief Complaint
-: Pneumonia
Subjective / Review of Systems
Tmax 100.1
bp stable
on 6L NC - was on bipap for several hours overnight
'I feel better'
hasnt produced a sputum yet - encouraged him to try with acapella
Vital Signs / Physical Exam
Vital Signs
Vital Signs
Temp Pulse Resp BP Pulse Ox
98.1 F 83 30 164/78 95
08/15/24 08:00 08/15/24 08:56 08/15/24 06:00 08/15/24 08:56 08/15/24 05:00
Physical Exam
Constitutional: No Acute Distress and Chronically Ill
Cardiovascular: Regular Rate and S1/S2; Negative Murmur or Rub
Pulmonary: Coarse; Negative Symmetric, Wheezes or Rales
Gastrointestinal: Soft, Non Tender, Non Distended and Normal Bowel Sounds
Skin: Warm and Dry; Negative Rash or Jaundice
Objective Data
Lab Data
Lab Results
08/15/24 03:17
08/15/24 03:16
PT 17.0 Sec (11.4-14.6) H 08/14/24 14:46
INR 1.33 08/14/24 14:46
APTT 40.0 Sec (23.4-35.0) H 08/14/24 14:46
Estimated Creat Clear 28 ml/min 08/15/24 03:16
Lactic Acid Cancelled 08/14/24 12:45
Total Bilirubin Cancelled 08/14/24 08:59
AST Cancelled 08/14/24 08:59
ALT Cancelled 08/14/24 08:59
Alkaline Phosphatase Cancelled 08/14/24 08:59
Most recent labs reviewed.
Micro Results:
08/14/24 08:59 Blood Culture - Preliminary
Blood/Venous No Growth in 24 hours- Final report to follow
08/15/24 03:17 MRSA Screen - Pending
Nose
08/14/24 14:46 Influenza Types A & B (LAURA) - Final
Nasal Swab Negative for Influenza A & B, NAAT
Negative results must be combined with clinical observations
and patient history.
Nucleic Acid Amplification test (NAAT)performed on the
[employer] platform.
08/14/24 09:25 Blood Culture - Pending
Blood/Venous
--- NOTE | 2024-08-15 09:35 | W.PN.HOSP.TC ---
Today's Communication/Plan
-
Meropenem as per ID
Assessment / Plan
Assessment / Plan
Multifactorial respiratory distress, Hypoxemia, Acute Hypoxic Respiratory Failure
Severe sepsis
Pulm/CCM input noted and appreciated
PNA, Leukocytosis, Respiratory Distress
consistent with post Covid PNA
pt looks less ill past 24 hrs. SaO2 on room air was 84% in ER, pt placed on 5 L/M, now 96%and O2 turned down to 4 L/M
wt 85-->80.1 kg
WBC 17.6-->13.1k
Recent Covid infection, was tx with Molnupiravir
CXR: Findings suggesting moderate left upper and lower lobe and moderate right lower lobe pneumonia. Progressed.
CKD4
seen by nephrology during recent hospitalization. Have been consulted
BUN/Creat 81/3.1-->80/3.2
Left foot osteomyelitis on Daptomycin, to be resumed 08/16, as per ID
HFpEF
Cardio input appreciated
chronic anemia
Hgb 8.5
essential HTN
NIDDM
P:ICU
continue oxygen
Consult Cardio, CCM, Nephrology, ID
Full Code
CXR, labs
Anticipated Discharge: > 48 hours
Subjective/Interval History
-
Date of Service: August 15, 2024
Appears much more comfortable, sitting on bedside commode
Objective Data
-
Labs:
Laboratory Results
08/15/24 08/15/24
03:16 03:17
WBC 13.1 H
Hgb 8.5 L
Hct 25.1 L
Plt Count 422 H
Sodium 138
Potassium 4.2
Chloride 106
Carbon Dioxide 20 L
BUN 80 H
Creatinine 3.2 H
Glucose 137 H
Calcium 8.2 L
Vital Signs:
Vital Signs
Temp Pulse Resp BP Pulse Ox
98.1 F 83 30 164/78 96
08/15/24 08:00 08/15/24 08:56 08/15/24 06:00 08/15/24 08:56 08/15/24 08:00
I&O
08/14/24 08/15/24 08/16/24
06:59 06:59 06:59
Intake Total 713 / 713
Output Total 2350 / 2350
Balance -1637 / -1637
Review of Systems
-
History Source: Patient and Physician
Constitutional: Reports Fever (100.1, on admission, since afebrile)
Respiratory: Reports Trouble Breathing (significantly improved)
Cardiac: Denies Chest Pain
Abdomen/GI: Reports No Symptoms
Skin: Reports Rash (left foot infection)
Physical Exam
-
General: Well Developed, Well Nourished, Conversant and Appears Chronically Ill
HEENT: Normocephalic, Atraumatic and Moist Mucous Membranes
Respiratory: Decreased Breath Sounds (improved air movement past 24 hrs); Negative Wheezes
Cardiac: Regular Rhythm and S1/S2
GI: Soft, Nontender and Nondistended
Musculoskeletal: Edema, Right Lower Extrem, Edema, Left Lower Extrem and Other (left foot without redness or draining)
Neuro: Awake, Alert and Oriented
--- NOTE | 2024-08-15 09:56 | PTCARENOTE ---
PT received from assembler 1st shift RN. Pt called to use BSC, he transferred well without any SOB on 6L. After sitting in bed, O2 weaned to 4L but he slowly went into the high 80's. Replaced on 6L. Ox3 and pleasant. NSR on tele, +1 BL ankle edema, tubigrip
on L leg. Pt complains of a dry, nonproductive cough, he states he feels sputum in his throat but he's having difficulty getting it up. Breath sounds with coarse, crackles 1/2 up. Pt using urinal with minimal difficulty. L foot scab itact. R knee
abrasion from falls at home. IV sites intact. Pt makes needs known.
--- NOTE | 2024-08-15 10:44 | CM ---
CM following re: discharge planning.
Discussed in Rounds, reviewed pt's chart, met with pt.
Pt is a 64 year old male, admitted with primary dx of Acute multifactorial respiratory failure. Per rounds meeting, pt requires 6L NC of O2, Ni-pap at , continue supportive care.
Pt reports he lives with brother 2SH, 1 step to enter, has supportive son Tejal. Pt reports he ambulates with a walker and a cane, active with [facility] and pt has been receiving outpatient infusion therapy at .
PT and OT will evaluate the pt to determine a level of care at discharge.
PCP: Nik Dumont
Pharmacy: [facility]
D/C plan: most likely home with resumption of existing services.
CM will follow with discharge plan updates as hospitalization progresses
--- NOTE | 2024-08-15 10:53 | W.PN.NEPH.PH ---
Today's Communication / Plan
-
cont lasix
Assessment/Plan
-
Impression:
Severe sepsis, presumed pneumonia
Acute hypoxic respiratory failure
Acute on chr DCHF
Resolved COVID
CKD4 baseline high 2 range
Metabolic acidosis
Anemia
Left Foot osteomyelitis
HTN
+PR3 Ab
Nephrotic range proteinuria of 5 g, biopsy-proven diabetic nephropathy
07/21/24: K biopsy nodular D nephropathy
IFTA mod to severe
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
Plan:
IVY-likely multifactorial, with sepsis, CHF
cr is up slightly but likely need to be on dry end for rep status
agree with lasix 40mg IV daily
monitor UOP and follow bladder scan
hold lisinopril and avoid nephrotoxins
cont po bicarb for met acidosis
Abx per ID
dose meds renally
We have reviewed multiple occasions that he is at high risk of HD which he understands
hopefully escape HD this time too
BP stable on BB
follow h/h, had few doses of IV fe last admit, reportedly had heme +ve stool before
d/w nursing, ICU and pt
labs in am
-
-
Date of Service: August 15, 2024
CC / HPI / ROS
-
Chief Complaint:
IVY with CKD
History of Present Illness:
cr up at 3.2, BUN 80, met acidosis better at 20
wt is down, on 5lit of O2 still
non oliguric
Review of Systems:
no cp
sob and cough improving
no n/v
Labs
-
Labs:
WBC 13.1 10^3/uL (4.8-10.8) H 08/15/24 03:17
RBC 3.02 10^6/uL (4.70-6.10) L 08/15/24 03:17
Hgb 8.5 g/dL (13.0-18.0) L 08/15/24 03:17
Hct 25.1 % (39.0-52.0) L 08/15/24 03:17
Plt Count 422 10^3/uL (130-400) H 08/15/24 03:17
Sodium 138 mmol/L (135-145) 08/15/24 03:16
Potassium 4.2 mmol/L (3.5-5.1) 08/15/24 03:16
Chloride 106 mmol/L (98-107) 08/15/24 03:16
Carbon Dioxide 20 mmol/L (22-30) L 08/15/24 03:16
BUN 80 mg/dl (9-20) H 08/15/24 03:16
Creatinine 3.2 mg/dL (0.7-1.3) H 08/15/24 03:16
eGFR 20.94 08/15/24 03:16
Glucose 137 mg/dl (70-99) H 08/15/24 03:16
Calcium 8.2 mg/dl (8.4-10.2) L 08/15/24 03:16
Phosphorus 5.0 mg/dl (2.5-4.5) H 08/14/24 14:46
Ytv-F-Yycufcawqyf Pept > 49089 pg/ml 08/14/24 08:59
Albumin Cancelled 08/14/24 08:59
Physical Exam
-
Vital Signs:
Vital Signs
Temp Pulse Resp BP Pulse Ox
98.1 F 83 30 164/78 96
08/15/24 08:00 08/15/24 08:56 08/15/24 06:00 08/15/24 08:56 08/15/24 08:00
Cardiovascular:: Regular rate and rhythm
Respiratory:: Bilateral: Coarse (bases)
Lung Excursion:: Normal
Abdomen:: Nontender and Soft
Extremity Edema:: +1: Bilateral:
[place] Catheter: No
[2024-08-15 11:37] LABS: Glucose - Point of Care 271 mg/dl (70-99)
--- NOTE | 2024-08-15 12:00 | PTCARENOTE ---
Pt assisted OOB to the chair. Tolerated transfer well, on 5L satting 94%. While sitting in the chair we practiced using the IS and acapella. IS caused pt to go into a coughing fit and he desaturated into the high 80's. O2 increased back up to 6L
with adequate sats.
[2024-08-15] MEDS: NOVOLOG FLEXPEN-MODERATE RESISTANCE 5 UNITS SC (13:29)
--- NOTE | 2024-08-15 14:53 | PTCARENOTE ---
Pt tolerated chair for 2.5 hours. He started to feel some chest tightness and shortness of breath. MD made aware. Pt assisted back to bed and BiPAP was replaced. Shortly after, pt states he feels much better.
--- NOTE | 2024-08-15 16:32 | W.PN.CD ---
Addendum entered and electronically signed by Danya Nuñez MD 08/15/24 19:55:
I saw and examined the patient.
The CAUSTIC MIXER's note was reviewed and I agree with the note.
Comment: Overall, he is feeling better today. Recently just had some chest tightness was put on BiPAP and responded well to this.He still feeling a bit short of breath. On exam, he has an increased respiratory rate, bibasilar crackles, regular
rate and rhythm with normal S1-S2, trace edema bilaterally. He is being treated for possible hospital-acquired pneumonia after recent COVID-19, heart failure with preserved EF. Agree with using BiPAP intermittently for increased times of dyspnea,
discussed with nursing would recommend wearing tonight with sleep. Continue diuresis. Continue treatment of pneumonia as per anatomic pathologist, ID and medicine.
Original Note:
Today's Communication / Plan
-
-continue IV lasix daily and monitor volume and renal function
-continue BB and follow telemetry
Impression / Plan
-
64M with hypertension, hyperlipidemia, type 2 diabetes mellitus, CKD4 (known diabetic nephropathy), with diabetic neuropathy, MRSA bacteremia with left foot osteomyelitis (on daptomycin), chronic kidney disease, HFpEF recent discharge after
hospitalization for lower extremity cellulitis, COVID-19 pneumonia and HFpEF who presented to the emergency department with increasing weakness and shortness of breath after discharged just a couple days ago.
Planishing Press Operator: Dr. Nuñez
Acute hypoxic respiratory insufficiency:
-currently on BiPAP. He was off earlier, but felt chest tightness and SOB, which resolved with BiPAP.
-Mixed etiology in this patient with recent COVID19. Currently being treated for pneumonia. Acute on chronic HFpEF- getting IV lasix- weight down (careful diuresis due to renal dysfunction)
Acute on chronic HFpEF:
-cardiorenal etiology suspected
-Nephrology on board- getting lasix IV daily- monitor renal function and volume status closely
NSVT:
-brief 08/14/24 around 2130- K+ and mag fine, recent EF normal
-continue BB and follow tele
Covid19, pneumonia:
-ID and pulm following- continue treatment as planned
Acute on CKD4, diabetic nephropathy
-Nephrotic range protein on last admission
-High risk of further deterioration
-Nephrology following
Hx osteomyelitis, chronic daptomycin
Chronic anemia, perhaps mixed etiology=> CKD, inflammation, per medicine/nephrology
-did receive transfusion last hospitalization, may need to consider again.
Hypertension, stable,
Dyslipidemia, LDL above goal last admission
Type 2 diabetes mellitus, Tx per primary team
Physical Exam
Vital Signs/Labs
Vital Signs
Temp Pulse Resp BP Pulse Ox
98.3 F 83 30 164/78 97
08/15/24 15:20 08/15/24 08:56 08/15/24 06:00 08/15/24 08:56 08/15/24 11:15
08/14/24 08/15/24 08/16/24
06:59 06:59 06:59
Actual Weight 80.1 kg
08/15/24 03:17
08/15/24 03:16
PT 17.0 Sec (11.4-14.6) H 08/14/24 14:46
INR 1.33 08/14/24 14:46
APTT 40.0 Sec (23.4-35.0) H 08/14/24 14:46
Magnesium 2.2 mg/dl (1.6-2.3) 08/14/24 14:46
08/14/24
08:59
Jxk-B-Lixljwlyrjp Pept > 75994
Physical Exam
Constitutional: No acute distress
EENT: Anicteric
Cardiovascular: Rhythm & rate is regular
Respiratory: Crackles Present and Other (on bipap)
Neuro/Psych: AO x 3
Data Reviewed
-
Date of Service: August 15, 2024
EKG: Other (SR, brief NSVT as noted)
Labs: Labs Reviewed by me
[2024-08-15] MEDS: LASIX 40 MG IV (16:48)
[2024-08-15 17:54] LABS: Glucose - Point of Care 140 mg/dl (70-99)
[2024-08-15] MEDS: NOVOLOG FLEXPEN-MODERATE RESISTANCE SC (18:16)
--- NOTE | 2024-08-15 19:04 | PTCARENOTE ---
On assessment pt aaox3, denies pain and SOB at this time, requesting BIPAP overnight, SR on the monitor, 6L NC, bedside commode and urinal with x1 assist, R PICC, call peters in reach.
[2024-08-15 22:08] LABS: Glucose - Point of Care 209 mg/dl (70-99)
[2024-08-16] VITALS (27 sets, daily range): BP systolic 101–175; BP diastolic 58–93; PULSE 2–77; BMI 21.9
[2024-08-16] MEDS: APRESOLINE 5 MG IV (02:09)
--- NOTE | 2024-08-16 04:26 | PTCARENOTE ---
Pt stood at bedside to urinate, pt states he has increased SOB, saturation 85%, nonrebreather applied, respiratory tiger texted and made aware, respiratory placed pt on 10L midflow now 96%. refusing BIPAP at this time.
[2024-08-16 04:35] LABS: % Basophils 0.6 % (0-2); % Eosinophils 10.3 % (0-6); % Immature Granulocytes 0.6 % (0-0.5); % Lymphocytes 7.5 % (20.5-51.1); % Monocytes 5.9 % (1.7-9.3); % Neutrophils 75.1 % (42.2-75.2); Absolute Basophils 0.1 10^3/uL (0-0.2); Absolute Eosinophils 1.1 10^3/uL (0-0.7); Absolute Immature Granulocytes 0.1 10^3/uL (0-0.05); Absolute Lymphocytes 0.8 10^3/uL (1.2-3.4); Absolute Monocytes 0.6 10^3/uL (0.1-0.6); Absolute Neutrophils 8.2 10^3/uL (1.4-6.5); Hematocrit 27.5 % (39.0-52.0); Hemoglobin 8.9 g/dL (13.0-18.0); Mean Corp Hgb Conc. 32.4 g/dL (33.0-37.0); Mean Corpuscular Hgb 27.7 pg (27.0-31.0); Mean Corpuscular Volume 85.7 fL (80.0-94.0); Nucleated Red Blood Cells % 0 % (-); Platelet Count 441 10^3/uL (130-400); Red Blood Cell Count 3.21 10^6/uL (4.70-6.10); Red Cell Dist. Width 16.4 % (11.5-14.5); White Blood Cell Count 10.9 10^3/uL (4.8-10.8)
[2024-08-16 05:04] LABS: Blood Urea Nitrogen 82 mg/dl (9-20); Calcium 8.4 mg/dl (8.4-10.2); Carbon Dioxide 23 mmol/L (22-30); Chloride 104 mmol/L (98-107); Estimated Creatinine Clearance 27 ml/min; Glucose 183 mg/dl (70-99); Sodium 140 mmol/L (135-145); eGFR 20.94
[2024-08-16] MEDS: MERREM 500 MG IV ×3 (05:45→20:42)
[2024-08-16] MEDS: STERILE WATER FOR INJECTION 10 ML IV ×3 (05:45→20:42)
--- NOTE | 2024-08-16 06:46 | W.PN.CD ---
Today's Communication / Plan
-
Patient is comfortable denies shortness of breath but still in significant amount of O2.
Can continue diuretics but will need to monitor renal function closely do not want to overdiuresis
Continue treatment of pneumonia and optimization of pulmonary status as directed by pulmonary/critical care and hospitalist.
Impression / Plan
-
64M with hypertension, hyperlipidemia, type 2 diabetes mellitus, CKD4 (known diabetic nephropathy), with diabetic neuropathy, MRSA bacteremia with left foot osteomyelitis (on daptomycin), chronic kidney disease, HFpEF recent discharge after
hospitalization for lower extremity cellulitis, COVID-19 pneumonia and HFpEF who presented to the emergency department with increasing weakness and shortness of breath after discharged just a couple days ago.
[employer] Operator: Dr. Nuñez
Acute hypoxic respiratory insufficiency:
-currently on BiPAP. He was off earlier, but felt chest tightness and SOB, which resolved with BiPAP.
-Mixed etiology in this patient with recent COVID19. (Chest x-ray 08/15/2024 patchy airspace opacities bilateral may represent multifocal pneumonia)currently being treated for pneumonia. Acute on chronic HFpEF- getting IV lasix- weight down
(careful diuresis due to renal dysfunction)
Acute on chronic HFpEF:
-I's and O's more than 2 L negative over the last 24 hours.
-Weights trending down.
-Monitor renal function on current diuretics. Creatinine currently 3.2
NSVT:
-brief 08/14/24 around 2130- K+ and mag fine, recent EF normal
-continue BB and follow tele
Covid19, pneumonia: Initial COVID-positive 08/05/2024
-ID and pulm following- continue treatment as planned
Acute on CKD4, diabetic nephropathy
-Nephrotic range protein on last admission
-High risk of further deterioration
-Nephrology following
Hx osteomyelitis, chronic daptomycin
Chronic anemia, perhaps mixed etiology=> CKD, inflammation, per medicine/nephrology
-did receive transfusion last hospitalization, may need to consider again.
Hypertension, stable,
Dyslipidemia, LDL above goal last admission
Type 2 diabetes mellitus, Tx per primary team
Physical Exam
Vital Signs/Labs
Vital Signs
Temp Pulse Resp BP Pulse Ox
99.2 F 87 22 162/67 93
08/16/24 03:41 08/16/24 05:00 08/16/24 05:00 08/16/24 05:00 08/16/24 05:00
08/14/24 08/15/24 08/16/24
06:59 06:59 06:59
Actual Weight 80.1 kg 79.4 kg
08/16/24 04:01
08/16/24 04:01
PT 17.0 Sec (11.4-14.6) H 08/14/24 14:46
INR 1.33 08/14/24 14:46
APTT 40.0 Sec (23.4-35.0) H 08/14/24 14:46
Magnesium 2.2 mg/dl (1.6-2.3) 08/14/24 14:46
08/14/24
08:59
Nmr-Z-Liqfcryxfzl Pept > 30872
Physical Exam
Constitutional: No acute distress
Cardiovascular: Rhythm & rate is regular
Respiratory: Wheeze Absent, Rhonchi Absent and Other (Rare crackle right base)
GI: Soft, Non tender and Normal bowel sounds
Neuro/Psych: Alert, Oriented and AO x 3
Data Reviewed
-
Date of Service: August 16, 2024
--- NOTE | 2024-08-16 07:15 | W.PN.PUL3 ---
Today's Communication / Plan
-
Doing well, tolerating BIPAP nightly
Wean supplemental O2 as tolerated
Diuresis ongoing, slow progress
Abx ongoing, but culture negative so far, ID following
Repeat CXR in AM
Encouraged PT/OT, OOB
Assessment
-
Patient is a 64-year-old male with previous history of hypertension, diabetes, chronic kidney disease presenting to ER with complaints of shortness of breath. He had recently been diagnosed with acute COVID illness 7 days prior. He had been
receiving IV antibiotic infusions for cellulitis of his left lower extremity. Was reportedly 84% on 5 L in ER, chest x-ray demonstrating bibasilar infiltrates with left greater than right. proBNP greater than 27,000, there is metabolic acidosis
with elevated creatinine. He is not currently on pressors, he is admitted to ICU for severe sepsis.
Acute heart failure exacerbation, proBNP greater than 27,000
Severe sepsis, presumed co-morbid pneumonia
Recent COVID illness
Metabolic acidosis
Acute kidney injury
Hyperglycemia
Leukocytosis
Abnormal chest x-ray
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
History of MRSA cellulitis
CKD 4
IDDM
Nephrotic range proteinuria
Positive proteinase 3 antibodies
Hypertension
Chronic anemia
Left foot osteomyelitis treated with daptomycin
Anxiety
Plan
Oxygen needs: currently on 6L, BIPAP nightly/PRN
Prior history of lung disease: none, but has had recent history of CHF and COVID illness
Supplemental O2 as indicated to maintain sats > 89%, wean as tolerated
CXR reviewed indicating L>R infiltrate
Repeat CXR in AM
Hemodynamically stable, not requiring pressors.
Cardiac history reviewed--recent history of HFpEF, discharged 08/08/24
proBNP >72571
Prior ECHO reviewed indicating preserved function
Cards eval obtained
Monitor on telemetry
Lasix daily
IVY present, CKD stage 4
Renal following--recurrent volume issues, unclear candidacy for HD
Void trials
Follow urine output, critical I/Os
Replete electrolytes as needed
Fever and increased WBC on presentation, suspect post COVID PNA
Started on empiric antibiotics, ID consult obtained -- on MRP
Cultures sent/pending
Blood
Sputum--poor sample
Recent history of MRSA infection
Follow fever trend, WBC count
Lactate not elevated on admission
PT/OT, OOB encouraged
Diagnostic Data
Chest X-Ray: 08/14/24- Findings suggesting moderate left upper and lower lobe and moderate right lower lobe pneumonia. Progressed.
CT Scan:
Echo: 07/10/24- 1. Mild concentric LVH with EF 60-65%
2. Mild RVE
3. LAE
4. No evidence of significant valvular disease
PFT's:
Reports and relevant images were personally reviewed.
Total time spent on this encounter __51__ minutes which includes review of history, physical exam, medications, laboratory data, personal review of imaging, extensive review of outpatient records, discussion with care team and respiratory therapy.
Subjective Data
-
Date of Service:
Date of Service: August 16, 2024
Chief Complaint: Pulmonary Follow Up
Subjective:
Stable overnight, remained on BIPAP
Still on 6-8L NC but does not report worsening SOB
Objective Data
Data Reviewed
Vital Signs / I&O / Oxygen:
Vital Signs
Temp Pulse Resp BP Pulse Ox
99.2 F 87 22 162/67 93
08/16/24 03:41 08/16/24 05:00 08/16/24 05:00 08/16/24 05:00 08/16/24 05:00
Intake and Output
08/15/24 08/16/24 08/17/24
06:59 06:59 06:59
Intake Total 713 / 713 390 / 390
Output Total 2350 / 2350 2650 / 2650
Balance -1637 / -1637 -2260 / -2260
SaO2 93
Nasal Cannula flow liters per 10
minute
Physical Exam
General: Comfortable and Other (NAD)
HEENT: Normocephalic, Anicteric and Moist Mucous Membranes
Cardiovascular: S1-S2, Regular Rhythm and Peripheral Edema
Respiratory: Crackles and Non-Labored Respirations
GI: Soft, Non Distended and Non Tender
Neurology: Awake, Alert, Oriented, No Motor Deficits and Depressed (flat affect)
Skin: Warm, Dry and Good Color
Labs/Micro/Reports
Lab Data
08/16/24 04:01
08/16/24 04:01
Microbiology
08/15/24 03:17 Nose MRSA Screen - Final
No Methicillin Resistant Staphylococcus aureus isolated.
08/14/24 09:25 Blood/Venous Blood Culture - Preliminary
No Growth in 24 hours- Final report to follow
08/14/24 08:59 Blood/Venous Blood Culture - Preliminary
No Growth in 24 hours- Final report to follow
08/14/24 14:46 Nasal Swab Influenza Types A & B (LAURA) - Final
Negative for Influenza A & B, NAAT
Negative results must be combined with clinical observations
and patient history.
Nucleic Acid Amplification test (NAAT)performed on the
[employer] platform.
[2024-08-16 07:20] LABS: Glucose - Point of Care 214 mg/dl (70-99)
[2024-08-16] MEDS: ROBITUSSIN 200 MG PO ×2 (07:27→16:54)
[2024-08-16] MEDS: TESSALON PERLES 200 MG PO (07:27)
[2024-08-16] MEDS: COREG 6.25 MG PO ×2 (07:27→20:39)
[2024-08-16] MEDS: NEURONTIN 300 MG PO ×2 (07:27→20:40)
[2024-08-16] MEDS: WELLBUTRIN SR (12 hour sustained release) 150 MG PO ×2 (07:28→20:41)
[2024-08-16] MEDS: NOVOLOG FLEXPEN-MODERATE RESISTANCE 3 UNITS SC ×2 (07:28→16:37)
[2024-08-16] MEDS: SODIUM BICARBONATE 650 MG PO ×2 (07:28→20:40)
[2024-08-16] MEDS: HEPARIN 5000 UNITS SC ×2 (07:28→20:40)
[2024-08-16] MEDS: ATIVAN 1 MG PO ×3 (07:28→20:41)
--- NOTE | 2024-08-16 08:10 | W.PN.NEPH.PH ---
Today's Communication / Plan
-
Maintain IV lasix
Assessment/Plan
-
Impression:
Severe sepsis, presumed pneumonia
Acute hypoxic respiratory failure
Acute on chr DCHF
Resolved COVID
CKD4 baseline high 2 range
Metabolic acidosis
Anemia
Left Foot osteomyelitis
HTN
+PR3 Ab
Nephrotic range proteinuria of 5 g, biopsy-proven diabetic nephropathy
07/21/24: K biopsy nodular D nephropathy
IFTA mod to severe
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
Plan:
IVY-likely multifactorial, with sepsis, CHF
Remains hypoxic at 10 L nc
creatinine stable at 3.2, BUN ~80, uop ~2600
agree with lasix 40mg IV daily
monitor UOP and follow bladder scan
holding lisinopril and avoid nephrotoxins
continue po bicarb for met acidosis
Abx per ID
dose meds renally
We have reviewed multiple occasions that he is at high risk of HD which he understands
hopefully escape HD this time too
BP stable on BB
follow h/h, had few doses of IV fe last admit, reportedly had heme +ve stool before
d/w nursing, ICU and pt
labs in am
-
-
Date of Service: August 16, 2024
CC / HPI / ROS
-
Chief Complaint:
IVY with CKD
History of Present Illness:
cr up at 3.2, BUN 82, met acidosis better at 23
wt is down, but up to 10L NC O2
Hypertensive
anemic
Review of Systems:
no cp
sob and cough improving
no n/v
Nonoliguric
Weights down
Labs
-
Labs:
WBC 10.9 10^3/uL (4.8-10.8) H 08/16/24 04:01
RBC 3.21 10^6/uL (4.70-6.10) L 08/16/24 04:01
Hgb 8.9 g/dL (13.0-18.0) L 08/16/24 04:01
Hct 27.5 % (39.0-52.0) L 08/16/24 04:01
Plt Count 441 10^3/uL (130-400) H 08/16/24 04:01
Sodium 140 mmol/L (135-145) 08/16/24 04:01
Potassium 4.0 mmol/L (3.5-5.1) 08/16/24 04:01
Chloride 104 mmol/L (98-107) 08/16/24 04:01
Carbon Dioxide 23 mmol/L (22-30) 08/16/24 04:01
BUN 82 mg/dl (9-20) H 08/16/24 04:01
Creatinine 3.2 mg/dL (0.7-1.3) H 08/16/24 04:01
eGFR 20.94 08/16/24 04:01
Glucose 183 mg/dl (70-99) H 08/16/24 04:01
Calcium 8.4 mg/dl (8.4-10.2) 08/16/24 04:01
Phosphorus 5.0 mg/dl (2.5-4.5) H 08/14/24 14:46
Bpp-K-Qbjlsmuvbbz Pept > 68483 pg/ml 08/14/24 08:59
Albumin Cancelled 08/14/24 08:59
Physical Exam
-
Vital Signs:
Vital Signs
Temp Pulse Resp BP Pulse Ox
99.2 F 84 22 172/93 93
08/16/24 03:41 08/16/24 07:27 08/16/24 05:00 08/16/24 07:27 08/16/24 05:00
Cardiovascular:: Regular rate and rhythm
Respiratory:: Bilateral: Coarse (bases) and Bilateral: Rales
Lung Excursion:: Normal
Abdomen:: Nontender and Soft
Extremity Edema:: +1: Bilateral:
[place] Catheter: No
[2024-08-16] MEDS: LASIX 40 MG IV (08:13)
--- NOTE | 2024-08-16 08:33 | W.PN.ID1 ---
Date of Service
Date of Service: August 16, 2024
Today's Communication
- sputum culture contaminated - repeat
- has developed eosinophilia with AEC 1.1 - daily CBC with diff, may consider medication adjustments if it persists
- restart daptomycin today - dosing 10 mg/kg q48 hr - will complete the course 08/25
- given recent vancomycin and CKD4, c/w meropenem for now (day 3), deescalation as able
Assessment / Plan
Probable Hospital Acquired Pneumonia
Resolved COVID- day 10, s/p molnupiravir/decadro; antigen testing negative
CKD4 - nephrotic range proteinuria
CHF
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
- increasing O2 requirements as desaturating with activity
- blood cultures x2 NGTD
- getting chest pt - sputum culture contaminated - repeat
- has developed eosinophilia with AEC 1.1 - daily CBC with diff, may consider medication adjustments if it persists
- restart daptomycin today - dosing 10 mg/kg q48 hr - will complete the course 08/25
- given recent vancomycin and CKD4, c/w meropenem for now (day 3), deescalation as able
- follow clinically
Chief Complaint
-: Pneumonia
Subjective / Review of Systems
afebrile
running hypertensive
increased shortness of breath with standing to urinate, increased to midflow at 10L
Vital Signs / Physical Exam
Vital Signs
Vital Signs
Temp Pulse Resp BP Pulse Ox
99.2 F 85 26 175/90 94
08/16/24 03:41 08/16/24 08:13 08/16/24 08:00 08/16/24 08:13 08/16/24 08:25
Physical Exam
Constitutional: No Acute Distress and Chronically Ill
Cardiovascular: Regular Rate and S1/S2; Negative Murmur or Rub
Pulmonary: Symmetric, Coarse and Non Labored; Negative Wheezes or Rales
Gastrointestinal: Soft, Non Tender, Non Distended and Normal Bowel Sounds
Skin: Warm and Dry; Negative Rash or Jaundice
Objective Data
Lab Data
Lab Results
08/16/24 04:01
08/16/24 04:01
PT 17.0 Sec (11.4-14.6) H 08/14/24 14:46
INR 1.33 08/14/24 14:46
APTT 40.0 Sec (23.4-35.0) H 08/14/24 14:46
Estimated Creat Clear 27 ml/min 08/16/24 04:01
Lactic Acid Cancelled 08/14/24 12:45
Total Bilirubin Cancelled 08/14/24 08:59
AST Cancelled 08/14/24 08:59
ALT Cancelled 08/14/24 08:59
Alkaline Phosphatase Cancelled 08/14/24 08:59
Most recent labs reviewed wbc declined from 13 to 10.9
slight increase in plt
L shift resolved today
has developed eosinophilia with AEC 1.1
CXR 08/15: patchy diffuse, bilateral infiltrates; my read: diffuse infiltrates
Micro Results:
08/16/24 03:56 Respiratory Culture - Final
Sputum Gram Stain - Final
08/15/24 03:17 MRSA Screen - Final
Nose No Methicillin Resistant Staphylococcus aureus isolated.
08/14/24 09:25 Blood Culture - Preliminary
Blood/Venous No Growth in 24 hours- Final report to follow
08/14/24 08:59 Blood Culture - Preliminary
Blood/Venous No Growth in 24 hours- Final report to follow
08/14/24 14:46 Influenza Types A & B (LAURA) - Final
Nasal Swab Negative for Influenza A & B, NAAT
Negative results must be combined with clinical observations
and patient history.
Nucleic Acid Amplification test (NAAT)performed on the
[employer] platform.
--- NOTE | 2024-08-16 08:36 | PTCARENOTE ---
Pt received from quality assurance practice manager RN. I'm told he tolerated BiPAP for 5-6, pulse ox dropped overnight requiring 10L MFNC. Pt does not recall an event that precipitated the SOB episode. Pt is OX3 and cooperative, needs encouragement to use IS and
acapella, needs reinforcement with HF education as well. NSR in the 80's, +1 L ankle edema, trace on the right. Using the BSC with a one person assist, had two small BM's yesterday. Pt using urinal while standing at bedside. L foot wound intact. IV
sites intact.
[2024-08-16] MEDS: CUBICIN 16 MG IV (10:52)
[2024-08-16] MEDS: NOVOLOG FLEXPEN-MODERATE RESISTANCE 5 UNITS SC (11:06)
[2024-08-16 11:17] LABS: Glucose - Point of Care 250 mg/dl (70-99)
--- NOTE | 2024-08-16 16:07 | W.PN.HOSP.TC ---
Today's Communication/Plan
-
follow labs, CXR
Assessment / Plan
Assessment / Plan
Multifactorial respiratory distress, Hypoxemia, Acute Hypoxic Respiratory Failure
Severe sepsis
Pulm/CCM input noted and appreciated
PNA, Leukocytosis, Respiratory Distress
consistent with post Covid PNA
pt looks less ill past 24 hrs. SaO2 on room air was 84% in ER, pt placed on 5 L/M, now 96%and O2 turned down to 4 L/M
wt 85-->80.1-->79.4 kg
WBC 17.6-->13.1-->10.9k
Recent Covid infection, was tx with Molnupiravir
CXR: Findings suggesting moderate left upper and lower lobe and moderate right lower lobe pneumonia. Progressed.
CKD4
seen by nephrology during recent hospitalization. Have been consulted
BUN/Creat 81/3.1-->80/3.2-->82/3.2
Left foot osteomyelitis on Daptomycin, to be resumed 08/16, as per ID
HFpEF
Cardio input appreciated
chronic anemia
Hgb 8.5-->8.9
essential HTN
NIDDM
P:ICU-->IMU
continue oxygen
Consult Cardio, CCM, Nephrology, ID
Full Code
CXR, labs
Anticipated Discharge: > 48 hours
Subjective/Interval History
-
Date of Service: August 16, 2024
Generally feels better, much less sob
Objective Data
-
Labs:
Laboratory Results
08/16/24
04:01
WBC 10.9 H
Hgb 8.9 L
Hct 27.5 L
Plt Count 441 H
Sodium 140
Potassium 4.0
Chloride 104
Carbon Dioxide 23
BUN 82 H
Creatinine 3.2 H
Glucose 183 H
Calcium 8.4
Vital Signs:
Vital Signs
Temp Pulse Resp BP Pulse Ox
98.0 F 80 30 132/69 94
08/16/24 11:10 08/16/24 14:00 08/16/24 14:00 08/16/24 14:00 08/16/24 14:08
I&O
08/15/24 08/16/24 08/17/24
06:59 06:59 06:59
Intake Total 713 / 713 390 / 390
Output Total 2350 / 2350 2650 / 2650
Balance -1637 / -1637 -2260 / -2260
Review of Systems
-
History Source: Patient and Physician
Constitutional: Reports Fever (100.1, on admission, since afebrile)
Respiratory: Reports Trouble Breathing (significantly improved)
Cardiac: Denies Chest Pain
Abdomen/GI: Reports No Symptoms
Skin: Reports Rash (left foot infection)
Physical Exam
-
General: Well Developed, Well Nourished, No Apparent Distress (marked improvement in overall condition), Conversant and Appears Chronically Ill
HEENT: Normocephalic, Atraumatic and Moist Mucous Membranes
Respiratory: Decreased Breath Sounds (improved air movement past 24 hrs); Negative Wheezes
Cardiac: Regular Rhythm and S1/S2
GI: Soft, Nontender and Nondistended
Musculoskeletal: Edema, Right Lower Extrem, Edema, Left Lower Extrem and Other (left foot without redness or draining)
Neuro: Awake, Alert and Oriented
[2024-08-16 16:48] LABS: Glucose - Point of Care 216 mg/dl (70-99)
[2024-08-16 21:57] LABS: Glucose - Point of Care 176 mg/dl (70-99)
[2024-08-17] VITALS (22 sets, daily range): BP systolic 113–171; BP diastolic 48–93; PULSE 2–78; BMI 21.9
--- NOTE | 2024-08-17 | PTCARENOTE ---
PRN tylenol administered by this RN for a fever of 101.5 axillary. Pt is diaphoretic and feels warm upon assessment.
[2024-08-17] MEDS: APRESOLINE 5 MG IV (00:23)
[2024-08-17] MEDS: TYLENOL 650 MG PO ×4 (00:23→21:23)
[2024-08-17] MEDS: STERILE WATER FOR INJECTION 10 ML IV ×3 (06:41→21:22)
[2024-08-17] MEDS: MERREM 500 MG IV ×3 (06:41→21:22)
--- NOTE | 2024-08-17 06:52 | W.PN.CD ---
Today's Communication / Plan
-
patient did not feel well overnight Fever = 101.5 -08/16/24 at 23:11
- being treated for post Covid PNA
- remainson 4 liters
- mouth is sore and appears dry. with limited oral intake would hold IV diuretic today. Nephrology also following.
- May consider resuming oral regimen tomorrow
- abx per ID
Impression / Plan
-
64M with hypertension, hyperlipidemia, type 2 diabetes mellitus, CKD4 (known diabetic nephropathy), with diabetic neuropathy, MRSA bacteremia with left foot osteomyelitis (on daptomycin), chronic kidney disease, HFpEF recent discharge after
hospitalization for lower extremity cellulitis, COVID-19 pneumonia and HFpEF who presented to the emergency department with increasing weakness and shortness of breath after discharged just a couple days ago.
[employer]: Dr. Nuñez
Acute hypoxic respiratory insufficiency:
-currently on BiPAP. He was off earlier, but felt chest tightness and SOB, which resolved with BiPAP.
-Mixed etiology in this patient with recent COVID1 and now with suspected post Covid PNA. (Chest x-ray 08/15/2024 patchy airspace opacities bilateral may represent multifocal pneumonia) . Acute on chronic HFpEF- getting IV lasix- weight down
(careful diuresis due to renal dysfunction)
Fever = 101.5 -08/16/24
- being treated for post Covid PNA
- abx per ID
Acute on chronic HFpEF:
-I's and O's more than -875 L negative over the last 24 hours.
-Weights trending down.
-Monitor renal function on current diuretics. Creatinine currently 3.0
- limited oral intake and mouth appears dry. would hold oral diuretic this morning.
NSVT:
-brief 08/14/24 , recent EF normal
-continue BB and follow tele
Covid19, pneumonia: Initial COVID-positive 08/05/2024
-ID and pulm following- continue treatment as planned
Acute on CKD4, diabetic nephropathy
-Nephrotic range protein on last admission
-High risk of further deterioration
-Nephrology following
Hx osteomyelitis, chronic daptomycin
Chronic anemia,
-did receive transfusion last hospitalization,
- monitor
Hypertension, stable,
Dyslipidemia,
Type 2 diabetes mellitus, Tx per primary team
Physical Exam
Vital Signs/Labs
Vital Signs
Temp Pulse Resp BP Pulse Ox
99.7 F 85 30 159/67 96
08/17/24 03:36 08/17/24 06:00 08/17/24 06:00 08/17/24 06:00 08/17/24 06:00
08/15/24 08/16/24 08/17/24
06:59 06:59 06:59
Actual Weight 80.1 kg 79.4 kg 79.3 kg
PT 17.0 Sec (11.4-14.6) H 08/14/24 14:46
INR 1.33 08/14/24 14:46
APTT 40.0 Sec (23.4-35.0) H 08/14/24 14:46
Magnesium 2.2 mg/dl (1.6-2.3) 08/14/24 14:46
08/14/24
08:59
Qfz-F-Zwsbofhjxru Pept > 31655
Physical Exam
Constitutional: No acute distress and Other (mouth - dry)
Cardiovascular: Rhythm & rate is regular
Respiratory: Wheeze Absent and Rhonchi Absent
GI: Soft and Non tender
Neuro/Psych: Alert
Data Reviewed
-
Date of Service: August 17, 2024
Medical Decision Making: Reviewed Test Results
Echo: Report Reviewed by me
X-Ray/CT/US/MRI/NUC/PET: Report Reviewed by me
Medical Tests (PFT, Pathology etc): Report Reviewed by me
Labs: Labs Reviewed by me
[2024-08-17 06:55] LABS: Blood Urea Nitrogen 80 mg/dl (9-20); Calcium 8.2 mg/dl (8.4-10.2); Carbon Dioxide 23 mmol/L (22-30); Chloride 105 mmol/L (98-107); Estimated Creatinine Clearance 28 ml/min; Glucose 153 mg/dl (70-99); Hematocrit 25.6 % (39.0-52.0); Hemoglobin 8.3 g/dL (13.0-18.0); Mean Corp Hgb Conc. 32.4 g/dL (33.0-37.0); Mean Corpuscular Hgb 27.2 pg (27.0-31.0); Mean Corpuscular Volume 83.9 fL (80.0-94.0); Mean Platelet Volume 10.1 fL (7.4-10.4); Platelet Count 410 10^3/uL (130-400); Potassium 3.9 mmol/L (3.5-5.1); Red Blood Cell Count 3.05 10^6/uL (4.70-6.10); Red Cell Dist. Width 16.5 % (11.5-14.5); Sodium 139 mmol/L (135-145); White Blood Cell Count 12.7 10^3/uL (4.8-10.8); eGFR 22.63
[2024-08-17] MEDS: ROBITUSSIN 200 MG PO ×2 (07:25→11:35)
[2024-08-17] MEDS: NEURONTIN 300 MG PO ×2 (07:25→21:19)
[2024-08-17] MEDS: WELLBUTRIN SR (12 hour sustained release) 150 MG PO ×2 (07:25→21:20)
[2024-08-17] MEDS: COREG 6.25 MG PO ×2 (07:25→21:18)
[2024-08-17] MEDS: SODIUM BICARBONATE 650 MG PO ×2 (07:25→21:20)
[2024-08-17] MEDS: HEPARIN 5000 UNITS SC ×2 (07:25→21:21)
[2024-08-17] MEDS: ATIVAN 1 MG PO ×3 (07:25→21:21)
[2024-08-17] MEDS: TESSALON PERLES 200 MG PO (07:25)
--- NOTE | 2024-08-17 07:25 | W.PN.PUL3 ---
Today's Communication / Plan
-
More SOB today, CXR appears worse--remains on 4L NC, only tolerated 1 hour BIPAP overnight
ID following for abx recs, on MRP/Dapto-fevers are ongoing--repeat sputum culture as able
Add Duonebs QID, mucus clearance
Lasix ongoing, but UO has diminished in past 24 hours (volume is still a contributing issue), renal following
CT chest in AM
Assessment
-
Patient is a 64-year-old male with previous history of hypertension, diabetes, chronic kidney disease presenting to ER with complaints of shortness of breath. He had recently been diagnosed with acute COVID illness 7 days prior. He had been
receiving IV antibiotic infusions for cellulitis of his left lower extremity. Was reportedly 84% on 5 L in ER, chest x-ray demonstrating bibasilar infiltrates with left greater than right. proBNP greater than 27,000, there is metabolic acidosis
with elevated creatinine. He is not currently on pressors, he is admitted to ICU for severe sepsis.
Acute heart failure exacerbation, proBNP greater than 27,000
Severe sepsis, presumed co-morbid pneumonia
Recent COVID illness
Metabolic acidosis
Acute kidney injury
Hyperglycemia
Leukocytosis
Abnormal chest x-ray
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
History of MRSA cellulitis
CKD 4
IDDM
Nephrotic range proteinuria
Positive proteinase 3 antibodies
Hypertension
Chronic anemia
Left foot osteomyelitis treated with daptomycin
Anxiety
Plan
Oxygen needs: currently on 4L, BIPAP nightly/PRN
Prior history of lung disease: none, but has had recent history of CHF and COVID illness
Supplemental O2 as indicated to maintain sats > 89%, wean as tolerated
CXR reviewed indicating L>R infiltrate
Repeat CXR in AM showing worsening infiltrates
Will add Duonebs QID and reattempt sputum culture
CT chest in AM
Hemodynamically stable, not requiring pressors.
Cardiac history reviewed--recent history of HFpEF, discharged 08/08/24
proBNP >76386
Prior ECHO reviewed indicating preserved function
Cards eval obtained
Monitor on telemetry
Lasix daily, UO has diminished in last 24 hours
IVY present, CKD stage 4
Renal following--recurrent volume issues, unclear candidacy for HD
Void trials
Follow urine output, critical I/Os
Replete electrolytes as needed
Fever and increased WBC on presentation, suspect post COVID PNA
Started on empiric antibiotics, ID consult obtained -- on MRP
Cultures sent/pending
Blood neg
Sputum--poor sample
Recent history of MRSA infection
Follow fever trend, WBC count
Lactate not elevated on admission
PT/OT, OOB encouraged
Diagnostic Data
Chest X-Ray: 08/14/24- Findings suggesting moderate left upper and lower lobe and moderate right lower lobe pneumonia. Progressed.
CT Scan:
Echo: 07/10/24- 1. Mild concentric LVH with EF 60-65%
2. Mild RVE
3. LAE
4. No evidence of significant valvular disease
PFT's:
Reports and relevant images were personally reviewed.
Total time spent on this encounter __51__ minutes which includes review of history, physical exam, medications, laboratory data, personal review of imaging, extensive review of outpatient records, discussion with care team and respiratory therapy.
Subjective Data
-
Date of Service:
Date of Service: August 17, 2024
Chief Complaint: Pulmonary Follow Up
Subjective:
More SOB this AM, remains on 4l NC
Tolerated only 1 hour bipap overnight
Fevers are noted now
Objective Data
Data Reviewed
Vital Signs / I&O / Oxygen:
Vital Signs
Temp Pulse Resp BP Pulse Ox
102.0 F H 85 30 159/67 96
08/17/24 07:15 08/17/24 06:00 08/17/24 06:00 08/17/24 06:00 08/17/24 06:00
Intake and Output
08/16/24 08/17/24 08/18/24
06:59 06:59 06:59
Intake Total 390 / 390 240 / 240
Output Total 2650 / 2650 1305 / 1305
Balance -2260 / -2260 -1305 / -1305 240 / 240
SaO2 96
Nasal Cannula flow liters per 4
minute
Physical Exam
General: Comfortable and Other (NAD)
HEENT: Normocephalic, Anicteric and Moist Mucous Membranes
Cardiovascular: S1-S2, Regular Rhythm and Peripheral Edema
Respiratory: Crackles and Non-Labored Respirations
GI: Soft, Non Distended and Non Tender
Neurology: Awake, Alert, Oriented, No Motor Deficits and Depressed (flat affect)
Skin: Warm, Dry and Good Color
Labs/Micro/Reports
Lab Data
08/17/24 04:49
08/17/24 04:49
Microbiology
08/14/24 09:25 Blood/Venous Blood Culture - Preliminary
No Growth in 48 hours- Final report to follow
08/14/24 08:59 Blood/Venous Blood Culture - Preliminary
No Growth in 48 hours- Final report to follow
08/16/24 03:56 Sputum Respiratory Culture - Final
08/16/24 03:56 Sputum Gram Stain - Final
08/15/24 03:17 Nose MRSA Screen - Final
No Methicillin Resistant Staphylococcus aureus isolated.
08/14/24 14:46 Nasal Swab Influenza Types A & B ([facility]A) - Final
Negative for Influenza A & B, NAAT
Negative results must be combined with clinical observations
and patient history.
Nucleic Acid Amplification test (NAAT)performed on the
[employer] platform.
--- NOTE | 2024-08-17 07:52 | W.PN.NEPH.PH ---
Today's Communication / Plan
-
Lasix held by cardiology
Volume status improved
Assessment/Plan
-
Impression:
Severe sepsis, presumed pneumonia
Acute hypoxic respiratory failure
Acute on chr DCHF
Resolved COVID
CKD4 baseline high 2 range
Metabolic acidosis
Anemia
Left Foot osteomyelitis
HTN
+PR3 Ab
Nephrotic range proteinuria of 5 g, biopsy-proven diabetic nephropathy
07/21/24: K biopsy nodular D nephropathy
IFTA mod to severe
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
Plan:
IVY-likely multifactorial, with sepsis, CHF,PNA
Reviewed chest x-ray this morning which appears to be more pneumonia than heart failure
Remains hypoxic at 10 L nc
creatinine stable at 3, BUN ~80, uop ~1300cc
agree with lasix 40mg IV daily
monitor UOP and follow bladder scan
holding lisinopril and avoid nephrotoxins (hemodynamically stable)
continue po bicarb for met acidosis: improving
Abx per ID
dose meds renally
We have reviewed multiple occasions that he is at high risk of HD which he understands
hopefully escape HD this time too
BP stable on BB
follow h/h, had few doses of IV fe last admit, reportedly had heme +ve stool before
d/w nursing, ICU and pt
labs in am
-
-
Date of Service: August 17, 2024
CC / HPI / ROS
-
Chief Complaint:
IVY with CKD
History of Present Illness:
cr down to 3 ,BUN 82, met acidosis better at 23
wt is down, but up to 10L NC O2
Remains on daptomycin and meropenem
anemic
Review of Systems:
no cp
sob and cough improving
no n/v
Nonoliguric
Weights unchanged
febrile
Labs
-
Labs:
WBC 12.7 10^3/uL (4.8-10.8) H 08/17/24 04:49
RBC 3.05 10^6/uL (4.70-6.10) L 08/17/24 04:49
Hgb 8.3 g/dL (13.0-18.0) L 08/17/24 04:49
Hct 25.6 % (39.0-52.0) L 08/17/24 04:49
Plt Count 410 10^3/uL (130-400) H 08/17/24 04:49
Sodium 139 mmol/L (135-145) 08/17/24 04:49
Potassium 3.9 mmol/L (3.5-5.1) 08/17/24 04:49
Chloride 105 mmol/L (98-107) 08/17/24 04:49
Carbon Dioxide 23 mmol/L (22-30) 08/17/24 04:49
BUN 80 mg/dl (9-20) H 08/17/24 04:49
Creatinine 3.0 mg/dL (0.7-1.3) H 08/17/24 04:49
eGFR 22.63 08/17/24 04:49
Glucose 153 mg/dl (70-99) H 08/17/24 04:49
Calcium 8.2 mg/dl (8.4-10.2) L 08/17/24 04:49
Phosphorus 5.0 mg/dl (2.5-4.5) H 08/14/24 14:46
Tlx-Y-Mwxswefvlau Pept > 27307 pg/ml 08/14/24 08:59
Albumin Cancelled 08/14/24 08:59
Physical Exam
-
Vital Signs:
Vital Signs
Temp Pulse Resp BP Pulse Ox
102.0 F H 89 30 168/76 96
08/17/24 07:15 08/17/24 07:25 08/17/24 06:00 08/17/24 07:25 08/17/24 06:00
Cardiovascular:: Regular rate and rhythm
Respiratory:: Bilateral: Coarse (bases) and Bilateral: Rales
Lung Excursion:: Normal
Abdomen:: Nontender and Soft
Extremity Edema:: +1: Bilateral:
[place] Catheter: No
[2024-08-17 08:07] LABS: Glucose - Point of Care 203 mg/dl (70-99)
[2024-08-17] MEDS: LASIX IV (08:16)
--- NOTE | 2024-08-17 08:18 | PTCARENOTE ---
Pt tells me he did not have a good night. He tolerated 1 hr on BiPAP before waking up feeling febrile. When his temp was checked he had a fever of 101.5. This morning, pt is again spiking a 102 fever. Pt states he feels very dry, MD order to hold IV
Lasix this AM. Breath sounds worse on the L than R, still with coarse crackles at the bases. Pt remains on 4L NC, occasionally desaturating with exertion. IV sites intact.
--- NOTE | 2024-08-17 08:47 | W.PN.ID1 ---
Date of Service
Date of Service: August 17, 2024
Today's Communication
aggressive attempts to obtain sputum - cough is productive
additional cultures as below
add levaquin
Assessment / Plan
Relapsed fever
Probable Hospital Acquired Pneumonia
Resolved COVID- day 10, s/p molnupiravir/decadron; antigen testing negative x2
CKD4 - nephrotic range proteinuria
CHF
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
- relapse of fevers
- repeat covid ag today negative
- blood cultures x2
- aggressive attempt to obtain sputum culture
- ua reflex to culture
- c diff
- has developed eosinophilia with slight improvement of AEC today to 1.0 - daily CBC with diff, may consider medication adjustments if it persists
- c/w daptomycin - dosing 10 mg/kg q48 hr - will complete the course 08/25
- c/w meropenem for now (day 4), deescalation as able
- add levaquin day 1
- follow clinically
Chief Complaint
-: Fever and Pneumonia
Subjective / Review of Systems
now spiking fevers to 102 orally
bp remains stable
now down to 4L NC
tired, feverish; noted change from earlier this admission
cough is worse - more productive
diarrhea ongoing - not bloody
no headaches, sinus tenderness, sore throat, nausea, vomiting, abdominal pain, dysuria, suprapubic tenderness, new rashes, tenderness over midline
Vital Signs / Physical Exam
Vital Signs
Vital Signs
Temp Pulse Resp BP Pulse Ox
102.0 F H 89 30 168/76 93
08/17/24 07:15 08/17/24 07:25 08/17/24 06:00 08/17/24 07:25 08/17/24 07:47
Physical Exam
Constitutional: Acutely Ill and Chronically Ill
Cardiovascular: Regular Rate and S1/S2; Negative Murmur or Rub
Pulmonary: Coarse and Non Labored; Negative Symmetric, Wheezes or Rales
Gastrointestinal: Soft, Non Tender, Non Distended and Normal Bowel Sounds
Skin: Warm and Dry; Negative Rash or Jaundice
Lines: Other (midline)
Objective Data
Lab Data
Lab Results
08/17/24 04:49
08/17/24 04:49
PT 17.0 Sec (11.4-14.6) H 08/14/24 14:46
INR 1.33 08/14/24 14:46
APTT 40.0 Sec (23.4-35.0) H 08/14/24 14:46
Estimated Creat Clear 28 ml/min 08/17/24 04:49
Lactic Acid Cancelled 08/14/24 12:45
Total Bilirubin Cancelled 08/14/24 08:59
AST Cancelled 08/14/24 08:59
ALT Cancelled 08/14/24 08:59
Alkaline Phosphatase Cancelled 08/14/24 08:59
Most recent labs reviewed.
L shift relapsed
AEC now 1.0 from 1.1
wbc increased from 11 to 12.7
Micro Results:
08/14/24 09:25 Blood Culture - Preliminary
Blood/Venous No Growth in 48 hours- Final report to follow
08/14/24 08:59 Blood Culture - Preliminary
Blood/Venous No Growth in 48 hours- Final report to follow
08/16/24 03:56 Respiratory Culture - Final
Sputum Gram Stain - Final
08/15/24 03:17 MRSA Screen - Final
Nose No Methicillin Resistant Staphylococcus aureus isolated.
08/14/24 14:46 Influenza Types A & B (LAURA) - Final
Nasal Swab Negative for Influenza A & B, NAAT
Negative results must be combined with clinical observations
and patient history.
Nucleic Acid Amplification test (NAAT)performed on the
[employer] platform.
[2024-08-17 09:10] LABS: % Basophils 0.3 % (0-2); % Immature Granulocytes 0.6 % (0-0.5); % Monocytes 4.3 % (1.7-9.3); % Neutrophils 80.8 % (42.2-75.2); Absolute Immature Granulocytes 0.1 10^3/uL (0-0.05); Absolute Lymphocytes 0.8 10^3/uL (1.2-3.4); Absolute Monocytes 0.5 10^3/uL (0.1-0.6); Absolute Neutrophils 10.3 10^3/uL (1.4-6.5); Nucleated Red Blood Cells % 0 % (-)
[2024-08-17 09:55] LABS: COVID-19 Antigen Negative (Negative)
[2024-08-17] MEDS: NOVOLOG FLEXPEN-MODERATE RESISTANCE 3 UNITS SC ×2 (09:55→13:52)
[2024-08-17] MEDS: DUONEB 3 ML INH ×2 (11:08→20:30)
[2024-08-17] MEDS: LEVAQUIN 750 MG PO (11:27)
[2024-08-17 12:33] LABS: Glucose - Point of Care 217 mg/dl (70-99)
--- NOTE | 2024-08-17 14:56 | W.PN.HOSP.TC ---
Today's Communication/Plan
-
add Lantus
CT scan of chest in AM
Assessment / Plan
Assessment / Plan
Multifactorial respiratory distress, Hypoxemia, Acute Hypoxic Respiratory Failure
Severe sepsis
Pulm/CCM input noted and appreciated
PNA, Leukocytosis, Respiratory Distress
On Levaquin and Daptomycin
consistent with post Covid PNA
Still with hypoxemia. SaO2 on room air was 84% in ER, now 90% on O2 4 L/M
wt 85-->80.1-->79.4-->79.3 kg
WBC 17.6-->13.1-->10.9-->12.7k
Recent Covid infection, was tx with Molnupiravir
CXR: Findings suggesting moderate left upper and lower lobe and moderate right lower lobe pneumonia. Progressed.
08/17 CXR; Persistent bilateral lower lobe patchy airspace opacity, left greater than right. Slightly progressed.
Pulm ordered CT chest tomorrow
CKD4
seen by nephrology during recent hospitalization. Have been consulted
BUN/Creat 81/3.1-->80/3.2-->82/3.2-->80/3.0
Left foot osteomyelitis on Daptomycin, resumed 08/16, as per ID
HFpEF
Cardio input appreciated
chronic anemia
Hgb 8.5-->8.9
essential HTN
Lisinopril on hold, currently on no medication for BP
NIDDM
glu 176-250
only on sliding scale insulin, will add low dose Lantus to attenuate glu swings
P:ICU-->IMU
continue oxygen
Consult Cardio, CCM, Nephrology, ID
Full Code
CT chest ordered by Pulm/CCM
Anticipated Discharge: > 48 hours
Subjective/Interval History
-
Date of Service: August 17, 2024
Looks weak
Objective Data
-
Labs:
Laboratory Results
08/17/24
04:49
WBC 12.7 H
Hgb 8.3 L
Hct 25.6 L
Plt Count 410 H
Sodium 139
Potassium 3.9
Chloride 105
Carbon Dioxide 23
BUN 80 H
Creatinine 3.0 H
Glucose 153 H
Calcium 8.2 L
Vital Signs:
Vital Signs
Temp Pulse Resp BP Pulse Ox
102.0 F H 76 18 117/48 90
08/17/24 07:15 08/17/24 14:00 08/17/24 14:00 08/17/24 14:00 08/17/24 14:00
I&O
08/16/24 08/17/24 08/18/24
06:59 06:59 06:59
Intake Total 390 / 390 480 / 480
Output Total 2650 / 2650 1305 / 1305
Balance -2260 / -2260 -1305 / -1305 480 / 480
Review of Systems
-
History Source: Patient and Coordinated Provider
Constitutional: Reports Fever (102.0)
Respiratory: Reports Cough and Trouble Breathing
Cardiac: Reports Chest Pain (sharp bilateral pleuritic low chest pain on inspirations)
Physical Exam
-
General: Well Developed, Well Nourished, No Apparent Distress (marked improvement in overall condition), Conversant and Appears Chronically Ill
HEENT: Normocephalic, Atraumatic and Moist Mucous Membranes
Respiratory: Rales (bibasilar rales) and Decreased Breath Sounds (improved air movement past 24 hrs, though with shallow respirations due to pleuritic pain); Negative Wheezes
Cardiac: Regular Rhythm and S1/S2
GI: Soft, Nontender and Nondistended
Musculoskeletal: Edema, Right Lower Extrem, Edema, Left Lower Extrem and Other (left foot without redness or draining)
Neuro: Awake, Alert and Oriented
[2024-08-17] MEDS: DUONEB INH (15:21)
[2024-08-17 16:55] LABS: Glucose - Point of Care 124 mg/dl (70-99)
[2024-08-17] MEDS: NOVOLOG FLEXPEN-MODERATE RESISTANCE SC (17:51)
[2024-08-17 21:25] LABS: Glucose - Point of Care 262 mg/dl (70-99)
[2024-08-17] MEDS: LANTUS 0.1 UNITS SC (21:50)
[2024-08-18] VITALS (28 sets, daily range): BP systolic 123–176; BP diastolic 64–86; PULSE 2–98; O2SAT 93; BMI 21.9
[2024-08-18 04:58] LABS: % Basophils 0.2 % (0-2); % Eosinophils 8.6 % (0-6); % Immature Granulocytes 0.7 % (0-0.5); % Lymphocytes 5.9 % (20.5-51.1); % Monocytes 3.4 % (1.7-9.3); % Neutrophils 81.2 % (42.2-75.2); Absolute Eosinophils 1.1 10^3/uL (0-0.7); Absolute Immature Granulocytes 0.1 10^3/uL (0-0.05); Absolute Lymphocytes 0.7 10^3/uL (1.2-3.4); Absolute Monocytes 0.4 10^3/uL (0.1-0.6); Hematocrit 23.7 % (39.0-52.0); Mean Corp Hgb Conc. 33.8 g/dL (33.0-37.0); Mean Corpuscular Volume 82.9 fL (80.0-94.0); Mean Platelet Volume 9.6 fL (7.4-10.4); Nucleated Red Blood Cells % 0 % (-); Platelet Count 388 10^3/uL (130-400); Red Blood Cell Count 2.86 10^6/uL (4.70-6.10); Red Cell Dist. Width 16.5 % (11.5-14.5); White Blood Cell Count 12.3 10^3/uL (4.8-10.8)
[2024-08-18 05:32] LABS: Blood Urea Nitrogen 80 mg/dl (9-20); Calcium 8.1 mg/dl (8.4-10.2); Carbon Dioxide 25 mmol/L (22-30); Chloride 105 mmol/L (98-107); Estimated Creatinine Clearance 27 ml/min; Glucose 149 mg/dl (70-99); Potassium 4.1 mmol/L (3.5-5.1); Sodium 140 mmol/L (135-145); eGFR 21.76
[2024-08-18] MEDS: APRESOLINE 5 MG IV ×3 (05:46→22:12)
[2024-08-18] MEDS: STERILE WATER FOR INJECTION 10 ML IV ×3 (05:47→22:14)
[2024-08-18] MEDS: MERREM 500 MG IV ×3 (05:47→22:14)
--- NOTE | 2024-08-18 06:00 | PTCARENOTE ---
Pt tolerated Bipap overnight satting at 95% pulse ox.
[2024-08-18] MEDS: NOVOLOG FLEXPEN-MODERATE RESISTANCE 1 UNITS SC ×2 (07:24→17:11)
[2024-08-18] MEDS: DUONEB 3 ML INH ×3 (07:26→20:18)
[2024-08-18 07:29] LABS: Glucose - Point of Care 152 mg/dl (70-99)
--- NOTE | 2024-08-18 07:30 | PTCARENOTE ---
report received. aaox3. nsr. vss. o2 >92% on 6lnc. awaiting to go to ct scan. plan of care updated. will monitor.
--- NOTE | 2024-08-18 07:44 | W.PN.CD ---
Today's Communication / Plan
-
Hold diuretics today
Consider restarting tomorrow, he does have b/l LE edema but weight is down and edema per Luis is chronic
Impression / Plan
-
64M with hypertension, hyperlipidemia, type 2 diabetes mellitus, CKD4 (known diabetic nephropathy), with diabetic neuropathy, MRSA bacteremia with left foot osteomyelitis (on daptomycin), chronic kidney disease, HFpEF recent discharge after
hospitalization for lower extremity cellulitis, COVID-19 pneumonia and HFpEF who presented to the emergency department with increasing weakness and shortness of breath after discharged just a couple days ago.
Conciliator: Dr. Nuñez
Acute hypoxic respiratory insufficiency:
-currently on BiPAP. He was off earlier, but felt chest tightness and SOB, which resolved with BiPAP.
-Mixed etiology in this patient with recent COVID1 and now with suspected post Covid PNA. (Chest x-ray 08/15/2024 patchy airspace opacities bilateral may represent multifocal pneumonia) . Acute on chronic HFpEF- getting IV lasix- weight down
(careful diuresis due to renal dysfunction)
Fever = 101.5 -08/16/24
- being treated for post Covid PNA
- abx per ID
Acute on chronic HFpEF:
-I's and O's more than -875 L negative over the last 24 hours.
-Weights now 175 lbs lowest it has been in awhile
-Monitor renal function on current diuretics. Creatinine currently 3.0
- limited oral intake and mouth appears dry. would hold oral diuretic this morning.
NSVT:
-brief 08/14/24 , recent EF normal
-continue BB and follow tele
Covid19, pneumonia: Initial COVID-positive 08/05/2024
-ID and pulm following- continue treatment as planned
Acute on CKD4, diabetic nephropathy
-Nephrotic range protein on last admission
-High risk of further deterioration
-Nephrology following
Hx osteomyelitis, chronic daptomycin
Chronic anemia,
-did receive transfusion last hospitalization,
- monitor
Hypertension, stable,
Dyslipidemia,
Type 2 diabetes mellitus, Tx per primary team
Physical Exam
Vital Signs/Labs
Vital Signs
Temp Pulse Resp BP Pulse Ox
98.5 F 90 22 174/78 92
08/18/24 07:39 08/18/24 07:29 08/18/24 07:29 08/18/24 05:46 08/18/24 07:29
08/17/24 08/18/24 08/19/24
06:59 06:59 06:59
Actual Weight 174 lb 13.225 oz 175 lb 7.807 oz
08/18/24 04:43
08/18/24 04:43
PT 17.0 Sec (11.4-14.6) H 08/14/24 14:46
INR 1.33 08/14/24 14:46
APTT 40.0 Sec (23.4-35.0) H 08/14/24 14:46
Magnesium 2.2 mg/dl (1.6-2.3) 08/14/24 14:46
08/14/24
08:59
Bvl-Z-Qavyjxuidtw Pept > 77037
Physical Exam
Constitutional: No acute distress
EENT: Anicteric
Cardiovascular: Rhythm & rate is regular and Pedal edema present
Respiratory: Respiratory effort normal, Wheeze Present and Rhonchi Present
GI: Soft
Neuro/Psych: AO x 3
Data Reviewed
-
Date of Service: August 18, 2024
EKG: Tracing Personally Visualized and interpreted (sr)
Echo: Report Reviewed by me
Labs: Labs Reviewed by me
[2024-08-18] MEDS: SODIUM BICARBONATE 650 MG PO (08:08)
[2024-08-18] MEDS: NEURONTIN 300 MG PO ×2 (08:08→20:08)
[2024-08-18] MEDS: LASIX 40 MG IV (08:08)
[2024-08-18] MEDS: COREG 6.25 MG PO ×2 (08:08→20:09)
[2024-08-18] MEDS: WELLBUTRIN SR (12 hour sustained release) 150 MG PO ×2 (08:08→20:08)
[2024-08-18] MEDS: HEPARIN 5000 UNITS SC ×2 (08:08→20:09)
[2024-08-18] MEDS: ATIVAN 1 MG PO ×3 (08:08→22:18)
--- NOTE | 2024-08-18 08:31 | W.PN.PUL3 ---
Addendum entered and electronically signed by Ben Ballard MD 08/18/24 14:49:
Overall, he will need repeat CT chest imaging in approximately 4-6 weeks to follow-up radiographic changes to resolution or at the very least to assess for improvement versus persistence. I will arrange for outpatient office follow-up with full
PFTs.
Original Note:
Today's Communication / Plan
-
Continue with supplemental oxygen titrating flow rate to keep SpO2 >90-94%
Given his CT chest findings with bilateral consolidative opacities, GGO, subpleural reticular opacities with traction bronchiectasis and b/l pleural effusions, there is concern for multiple etiologies including heart failure, bacterial pneumonia,
possibly [id number] related ILD versus organized pneumonia -> besides antibiotics he may also benefit from systemic steroids; check CRP and if elevated then we will start systemic steroids
Abx as per ID
DuoNebs
Continue IV lasix
Stop bicarb; check AM VBG
BiPAP prn during the day and with sleep
Pulmonary service will continue to follow along
Assessment
-
Patient is a 64-year-old male with previous history of hypertension, diabetes, chronic kidney disease presenting to ER with complaints of shortness of breath. He had recently been diagnosed with acute COVID illness 7 days prior. He had been
receiving IV antibiotic infusions for cellulitis of his left lower extremity. Was reportedly 84% on 5 L in ER, chest x-ray demonstrating bibasilar infiltrates with left greater than right. proBNP greater than 27,000, there is metabolic acidosis
with elevated creatinine. He is not currently on pressors, he is admitted to ICU for severe sepsis.
Impression:
Acute heart failure exacerbation, proBNP greater than 27,000
Severe sepsis, presumed co-morbid pneumonia
Interstitial lung disease with subpleural reticular opacities, traction bronchiectasis with bilateral GGO and consolidative opacities- suspected due to recent covid-19 pneumonia; DDx also includes OP
Recent COVID illness
Metabolic acidosis - resolved
Acute kidney injury on CKD (baseline Cr 1.7)
Hyperglycemia
Leukocytosis
Abnormal chest x-ray
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
History of MRSA cellulitis
CKD 4
IDDM
Nephrotic range proteinuria
Positive proteinase 3 antibodies
Hypertension
Chronic anemia
Left foot osteomyelitis treated with daptomycin
Anxiety
Plan
Oxygen needs: currently on 6L, BIPAP nightly/PRN
Prior history of lung disease: none, but has had recent history of CHF and COVID illness
Supplemental O2 as indicated to maintain sats > 89%, wean as tolerated
Admission CXR reviewed indicating L>R infiltrate
He had CT chest this AM showing bilateral consolidative opacities with subpleural reticular opacities, GGO, and traction bronchiectasis (worse in the bases>apices) and small bilateral pleural effusions
- DDx for this includes organizing pneumonia vs [id number] ILD/pulmonary fibrosis in the setting of acute decompensated heart failure; bacterial pneumonia also contributing
- Continue IV lasix with 40mg daily, trend sCr and UOP, aim for net negative fluid balance
- Check CRP level and if elevated then will start systemic steroids
- DuoNebs QID
- ID on board --> continue meropenem + dapto; defer duration of ABx to ID, but would favor at least 7-10 days total given the extensive changes seen on CT chest today (08/18/2024)
Hemodynamically stable, not requiring pressors.
Cardiac history reviewed--recent history of HFpEF, discharged 08/08/24
proBNP from 08/14/2024 >[id number]
Prior ECHO reviewed indicating preserved function
Cards eval obtained
Monitor on telemetry
Replete K>4, Mg>2
IVY present superimposed on CKD, baseline creatinine approximately 1.6�1.8
Renal following--recurrent volume issues, unclear candidacy for HD
Follow urine output and trend sCr; renally dose all meds/Abx
Stop bicarb supplementation given his serum HCO3 level is now 25; check VBG to assess pH
Fever and increased WBC on presentation, suspect post COVID PNA
Started on empiric antibiotics, ID consult obtained -- on meropenem + daptomycin s/p Levaquin on 08/17/2024 and cefepime/vancomycin on 08/14/2024
Blood cultures show NGTD (collected 08/14/2024 + 08/17/2024); sputum culture from 08/16/2024 (poor sample) + repeated on 08/17/2024 that shows NGTD
Recent history of MRSA infection involving L-foot
Follow fever trend, WBC count
Lactate not elevated on admission (1.0 on 08/14/2024) - no need to continue trending
PT/OT, OOB encouraged
Pulmonary service will continue to follow along
Diagnostic Data
Chest X-Ray: 08/14/24- Findings suggesting moderate left upper and lower lobe and moderate right lower lobe pneumonia. Progressed.
CT Chest w/o contrast 08/18/2024:
1. Bilateral airspace, groundglass, and reticular opacities as described, most likely related to pneumonia. As above, these findings are most pronounced in the lingula and the right middle lobe. Very small bilateral pleural effusions.
2. Air-fluid level within the esophagus compatible with dysmotility or reflux.
3. Mild coronary and aortic atherosclerosis.
Echo: 07/10/2024:
1. Mild concentric LVH with EF 60-65%
2. Mild RVE
3. LAE
4. No evidence of significant valvular disease
Reports and relevant images were personally reviewed.
Total time spent today was 52 minutes for this encounter. Time includes reviewing laboratory test/imaging results, reviewing pertinent medical records, obtaining and reviewing medical history, performing an appropriate exam, ordering medications,
tests and procedures. Time also includes documentation of this encounter, coordinating patient care and communicating with other healthcare professionals. Total time does not include separately billed tests performed on this date of service.
Subjective Data
-
Date of Service:
Date of Service: August 18, 2024
Chief Complaint: Pulmonary Follow Up
Subjective:
Patient seen and evaluated this morning. Still coughing up phlegm. Wore BiPAP 08/21 bled with 5L/min overnight. He denies shortness of breath. Feels fatigued. Currently, heart rate 76, saturating 90% on 6 L/min, and BP 152/69. He denies CP, DUARTE,
abdominal pain, nausea, fevers or chills.
Review of Systems
General: Other (Negative unless mentioned above)
Objective Data
Data Reviewed
Vital Signs / I&O / Oxygen:
Vital Signs
Temp Pulse Resp BP Pulse Ox
98.5 F 90 22 174/78 94
08/18/24 07:39 08/18/24 07:29 08/18/24 07:29 08/18/24 05:46 08/18/24 07:30
Intake and Output
08/17/24 08/18/24 08/19/24
06:59 06:59 06:59
Intake Total 480 / 480
Output Total 1305 / 1305 520 / 520
Balance -1305 / -1305 -40 / -40
SaO2 94
Nasal Cannula flow liters per 6
minute
Physical Exam
General: Respiratory Distress (negative), Comfortable, Chills (negative), Sweats (negative) and Other (NAD)
HEENT: Normocephalic, Anicteric and Moist Mucous Membranes
Cardiovascular: S1-S2 and Peripheral Edema (+2 lower extremity pitting edema bilaterally)
Respiratory: Wheeze (negative), Crackles (Bilaterally in the bases to midlung [place]), Rhonchi (negative) and Non-Labored Respirations
GI: Soft, Non Distended, Non Tender and Normal Bowel Sounds
Neurology: Awake, Alert, Oriented and Tremors (negative)
Skin: Warm, Dry, Cyanosis (negative) and Jaundice (negative)
Labs/Micro/Reports
Lab Data
08/18/24 04:43
08/18/24 04:43
Microbiology
08/17/24 15:21 Sputum Gram Stain - Preliminary
08/14/24 09:25 Blood/Venous Blood Culture - Preliminary
No Growth in 72 hours- Final report to follow
08/14/24 08:59 Blood/Venous Blood Culture - Preliminary
No Growth in 72 hours- Final report to follow
08/16/24 03:56 Sputum Respiratory Culture - Final
08/16/24 03:56 Sputum Gram Stain - Final
08/15/24 03:17 Nose MRSA Screen - Final
No Methicillin Resistant Staphylococcus aureus isolated.
[2024-08-18] MEDS: CUBICIN 16 MG IV (10:25)
--- NOTE | 2024-08-18 11:17 | W.PN.NEPH.PH ---
Today's Communication / Plan
-
cont lasix
Assessment/Plan
-
Impression:
Severe sepsis, presumed pneumonia
Acute hypoxic respiratory failure
Acute on chr DCHF
Resolved COVID
CKD4 baseline high 2 range
Metabolic acidosis
Anemia
Left Foot osteomyelitis
HTN
+PR3 Ab
Nephrotic range proteinuria of 5 g, biopsy-proven diabetic nephropathy
07/21/24: K biopsy nodular D nephropathy
IFTA mod to severe
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
Plan:
IVY-likely multifactorial, with sepsis, CHF,PNA
creatinine stable at 3.1, BUN ~80, UOP not measured all
cont with lasix 40mg IV daily
monitor UOP and follow bladder scan
cont to hold lisinopril and avoid nephrotoxins (hemodynamically stable)
continue po bicarb for met acidosis: improving
resp issue mostly PNA than CHF, Abx per ID
dose meds renally
BP stable on BB
follow h/h-stable, had few doses of IV fe last admit, reportedly had heme +ve stool before
We have reviewed multiple occasions that he is at high risk of HD which he understands
hopefully escape HD this time too
d/w nursing
labs in am
-
-
Date of Service: August 18, 2024
CC / HPI / ROS
-
Chief Complaint:
IVY with CKD
History of Present Illness:
cr up at 3.1 ,BUN 8, met acidosis better at 25
wt is down,weaning down on O2 at 6lit
Remains on daptomycin and meropenem , Levaquin added on 08/17
anemic-hb stable
afebrile
Review of Systems:
no cp
sob and cough improving
no n/v
Nonoliguric
Weights unchanged
Labs
-
Labs:
WBC 12.3 10^3/uL (4.8-10.8) H 08/18/24 04:43
RBC 2.86 10^6/uL (4.70-6.10) L 08/18/24 04:43
Hgb 8.0 g/dL (13.0-18.0) L 08/18/24 04:43
Hct 23.7 % (39.0-52.0) L 08/18/24 04:43
Plt Count 388 10^3/uL (130-400) 08/18/24 04:43
Sodium 140 mmol/L (135-145) 08/18/24 04:43
Potassium 4.1 mmol/L (3.5-5.1) 08/18/24 04:43
Chloride 105 mmol/L (98-107) 08/18/24 04:43
Carbon Dioxide 25 mmol/L (22-30) 08/18/24 04:43
BUN 80 mg/dl (9-20) H 08/18/24 04:43
Creatinine 3.1 mg/dL (0.7-1.3) H 08/18/24 04:43
eGFR 21.76 08/18/24 04:43
Glucose 149 mg/dl (70-99) H 08/18/24 04:43
Calcium 8.1 mg/dl (8.4-10.2) L 08/18/24 04:43
Phosphorus 5.0 mg/dl (2.5-4.5) H 08/14/24 14:46
Scn-L-Dzalycdwbbs Pept > 76747 pg/ml 08/14/24 08:59
Albumin Cancelled 08/14/24 08:59
Physical Exam
-
Vital Signs:
Vital Signs
Temp Pulse Resp BP Pulse Ox
97.9 F 90 22 174/78 94
08/18/24 11:14 08/18/24 07:29 08/18/24 07:29 08/18/24 05:46 08/18/24 07:30
Cardiovascular:: Regular rate and rhythm
Respiratory:: Bilateral: Coarse
Lung Excursion:: Normal
Abdomen:: Nontender and Soft
Extremity Edema:: +1: Bilateral:
[place] Catheter: No
--- NOTE | 2024-08-18 11:18 | W.PN.ID1 ---
Date of Service
Date of Service: August 18, 2024
Today's Communication
Continue daptomycin and meropenem. Discontinue further levofloxacin.
Assessment / Plan
Relapsed fever
�Currently afebrile
Pneumonia
S/P COVID
- s/p molnupiravir/decadron; antigen testing negative x2
CKD4 - nephrotic range proteinuria
CHF
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
- relapse of fevers; improved
- repeat covid ag today negative
- blood cultures x2
- sputum culture with usual respiratory davie
- has developed eosinophilia with slight improvement of AEC today to 1.0 - daily CBC with diff, may consider medication adjustments if it persists
- c/w daptomycin - dosing 10 mg/kg q48 hr - will complete the course 08/25
- c/w meropenem for now (d#5), deescalation as able
- d/c Levaquin
- follow clinically
Chief Complaint
-: Fever and Pneumonia
Subjective / Review of Systems
Patient seen and examined. Reports ongoing shortness of breath, although when I arrived in the room today he was sitting in the chair resting comfortably, and with no visible distress. He reports always feeling cold. No reported fevers.
Vital Signs / Physical Exam
Vital Signs
Vital Signs
Temp Pulse Resp BP Pulse Ox
97.9 F 90 22 174/78 94
08/18/24 11:14 08/18/24 07:29 08/18/24 07:29 08/18/24 05:46 08/18/24 07:30
Physical Exam
Constitutional: Comfortable, Chronically Ill and Non-toxic
Eyes: Sclera Anicteric
Cardiovascular: Regular Rate and S1/S2; Negative Murmur or Rub
Pulmonary: Coarse and Non Labored; Negative Symmetric, Wheezes or Rales
Gastrointestinal: Soft, Non Tender, Non Distended and Normal Bowel Sounds
Skin: Warm and Dry; Negative Rash or Jaundice
Lines: Other (midline)
Objective Data
Lab Data
Lab Results
08/18/24 04:43
08/18/24 04:43
PT 17.0 Sec (11.4-14.6) H 08/14/24 14:46
INR 1.33 08/14/24 14:46
APTT 40.0 Sec (23.4-35.0) H 08/14/24 14:46
Estimated Creat Clear 27 ml/min 08/18/24 04:43
Lactic Acid Cancelled 08/14/24 12:45
Total Bilirubin Cancelled 08/14/24 08:59
AST Cancelled 08/14/24 08:59
ALT Cancelled 08/14/24 08:59
Alkaline Phosphatase Cancelled 08/14/24 08:59
Most recent labs reviewed.
Micro Results:
08/14/24 09:25 Blood Culture - Preliminary
Blood/Venous No Growth in 4 days- Final report to follow
08/17/24 15:21 Respiratory Culture - Preliminary
Sputum Usual Respiratory Davie
Gram Stain - Preliminary
08/14/24 08:59 Blood Culture - Preliminary
Blood/Venous No Growth in 4 days- Final report to follow
08/17/24 12:53 Blood Culture - Pending
Blood/Venous
08/17/24 12:15 Blood Culture - Pending
Blood/Venous
08/16/24 03:56 Respiratory Culture - Final
Sputum Gram Stain - Final
08/15/24 03:17 MRSA Screen - Final
Nose No Methicillin Resistant Staphylococcus aureus isolated.
08/14/24 14:46 Influenza Types A & B (LAURA) - Final
Nasal Swab Negative for Influenza A & B, NAAT
Negative results must be combined with clinical observations
and patient history.
Nucleic Acid Amplification test (NAAT)performed on the
[employer] NOW platform.
--- NOTE | 2024-08-18 11:53 | CM ---
CM following re: discharge planning.
Discussed in Rounds, reviewed pt's chart, met with pt. Per rounds meeting, pt requires 6L NC of O2, Bi-pap at , continue supportive care, pt will be downgraded from ICU level of care. ID following.
PT and OT evaluations requested to determine a level of care at discharge.
Prior to admission to , pt had [facility] and was receiving outpatient infusion therapy at .
D/C plan: Awaiting for PT/OT evaluations and recommendations. Pt seems failed home level of care with [facility] and outpatient infusion therapy and pt might requires SNF level of care.
CM will follow with discharge plan updates as hospitalization progresses
[2024-08-18 11:59] LABS: Glucose - Point of Care 210 mg/dl (70-99)
[2024-08-18] MEDS: DUONEB INH ×2 (12:07→14:09)
[2024-08-18] MEDS: NOVOLOG FLEXPEN-MODERATE RESISTANCE 3 UNITS SC (12:18)
--- NOTE | 2024-08-18 15:46 | W.PN.HOSP.TC ---
Today's Communication/Plan
-
continue IV Abx, IV Lasix
wean O2
follow CRP in case IV steroids needed
Assessment / Plan
Assessment / Plan
Assessment:
Acute hypoxic respiratory failure
- wean O2 as able
Acute heart failure exacerbation, proBNP greater than 27,000
- continue IV Lasix per Nephrology/Cardiology; requires intensive monitoring of I/OS, weights, lytes
Severe sepsis, presumed co-morbid pneumonia
Interstitial lung disease with subpleural reticular opacities, traction bronchiectasis with bilateral GGO and consolidative opacities- suspected due to recent covid-19 pneumonia; DDx also includes OP
Recent COVID illness treated with Molnupiravir/steroids
- CT chest: Bilateral airspace, ground-glass, and reticular opacities as described, most likely related to pneumonia. As above, these findings are most pronounced in the lingula and the right middle lobe. Very small bilateral pleural effusions.
Air-fluid level within the esophagus compatible with dysmotility or reflux. Mild coronary and aortic atherosclerosis.
- await CRP to determine if IV steroids needed
- continue Meropenem (day 5)
Metabolic acidosis - resolved
Acute kidney injury on CKD stage 4 (baseline Cr 1.7) - multifactorial from sepsis, PNA, CHF
- monitor Cr daily; follow nephrology recs
- cont to hold lisinopril and avoid nephrotoxins
History of MRSA cellulitis
IDDM
Nephrotic range proteinuria
Positive proteinase 3 antibodies
essential Hypertension
Chronic anemia
Left foot osteomyelitis treating outpatient with daptomycin
- course to complete 08/25
Anxiety
DVT ppx: SC Heparin
Code: Full
Anticipated Discharge: > 48 hours
Subjective/Interval History
-
Date of Service: August 18, 2024
remains with cough, feels fatigued
on 5L - did use BiPAP overnight
Objective Data
-
Labs:
Laboratory Results
08/18/24
04:43
WBC 12.3 H
Hgb 8.0 L
Hct 23.7 L
Plt Count 388
Sodium 140
Potassium 4.1
Chloride 105
Carbon Dioxide 25
BUN 80 H
Creatinine 3.1 H
Glucose 149 H
Calcium 8.1 L
Vital Signs:
Vital Signs
Temp Pulse Resp BP Pulse Ox
98.3 F 81 29 174/78 91
08/18/24 15:05 08/18/24 12:11 08/18/24 12:11 08/18/24 05:46 08/18/24 12:11
I&O
08/17/24 08/18/24 08/19/24
06:59 06:59 06:59
Intake Total 480 / 480
Output Total 1305 / 1305 520 / 520 300 / 300
Balance -1305 / -1305 -40 / -40 -300 / -300
Physical Exam
-
General: Comfortable and Sweats; Negative Chills
HEENT: Normocephalic and Atraumatic
Respiratory: Crackles and Decreased Breath Sounds; Negative Wheezes
Cardiac: Regular Rhythm and S1/S2
Musculoskeletal: Edema, Right Lower Extrem and Edema, Left Lower Extrem
Neuro: AO x 3
Psych: Calm
Data Reviewed
-
Total Time Spent with Patient (in minutes): 52
Labs: Labs Reviewed by me
[2024-08-18 17:22] LABS: Glucose - Point of Care 180 mg/dl (70-99)
[2024-08-18 21:46] LABS: Glucose - Point of Care 217 mg/dl (70-99)
[2024-08-18] MEDS: LANTUS 0.1 UNITS SC (22:16)
[2024-08-19] VITALS (24 sets, daily range): BP systolic 122–173; BP diastolic 68–93; PULSE 2–73; BMI 21.9
[2024-08-19] MEDS: TYLENOL 650 MG PO ×3 (03:10→16:28)
[2024-08-19] MEDS: ZOFRAN 4 MG IV (03:30)
[2024-08-19 03:36] LABS: Venous Blood Gas B.E. 0.1 mmol/L (-4 to +4); Venous Blood Gas HCO3 24.7 mmol/L (22-27); Venous Blood Gas O2 Sat % 98.7 %; Venous Blood Gas pCO2 39 mmHg (35-48); Venous Blood Gas pH 7.41 (7.32-7.43); Venous Blood Gas pO2 90 mmHg (30-50)
--- NOTE | 2024-08-19 03:37 | PTCARENOTE ---
Pt wearing bipap as ordered, pox 94%. Rang call peters stating ' I am going to get sick, take this off.' This RN removed Pt's bipap, 15L midflow reapplied. Pt vomited clear liquid and dry heaved several times. pox dropped to 80-84%. Reminded Pt to
take deep breathes in through his nose and out of his mouth. Contacted House HYDROSTATIC TESTER, Robert Beckett ordered. Pt states 'I feel like I have a fever.' Pt warm to touch, and c/o having the chills. Pt' sat is 83-85%. RT called. Medicated Pt with prn
tylenol. High flow applied. Rectal temp 102.4. Morning labs drawn. House HYDROSTATIC TESTER made aware.
[2024-08-19 04:00] LABS: % Basophils 0.2 % (0-2); % Eosinophils 5.1 % (0-6); % Immature Granulocytes 0.6 % (0-0.5); % Lymphocytes 3.9 % (20.5-51.1); % Monocytes 2.7 % (1.7-9.3); % Neutrophils 87.5 % (42.2-75.2); Absolute Eosinophils 0.8 10^3/uL (0-0.7); Absolute Immature Granulocytes 0.1 10^3/uL (0-0.05); Absolute Lymphocytes 0.6 10^3/uL (1.2-3.4); Absolute Monocytes 0.4 10^3/uL (0.1-0.6); Hematocrit 25.6 % (39.0-52.0); Hemoglobin 8.4 g/dL (13.0-18.0); Mean Corp Hgb Conc. 32.8 g/dL (33.0-37.0); Mean Corpuscular Hgb 27.2 pg (27.0-31.0); Mean Corpuscular Volume 82.8 fL (80.0-94.0); Mean Platelet Volume 10.1 fL (7.4-10.4); Nucleated Red Blood Cells % 0 % (-); Platelet Count 416 10^3/uL (130-400); Red Blood Cell Count 3.09 10^6/uL (4.70-6.10); Red Cell Dist. Width 16.6 % (11.5-14.5)
[2024-08-19 04:12] LABS: ALT (SGPT) 21 U/L (0-50); AST (SGOT) 18 U/L (17-59); Albumin 2.5 g/dl (3.5-5.0); Alkaline Phosphatase 133 U/L (38-126); Blood Urea Nitrogen 81 mg/dl (9-20); Calcium 8.2 mg/dl (8.4-10.2); Carbon Dioxide 26 mmol/L (22-30); Chloride 104 mmol/L (98-107); Estimated Creatinine Clearance 29 ml/min; Glucose 129 mg/dl (70-99); Magnesium 2.3 mg/dl (1.6-2.3); Phosphorus 4.2 mg/dl (2.5-4.5); Potassium 4.3 mmol/L (3.5-5.1); Sodium 142 mmol/L (135-145); Total Bilirubin 0.4 mg/dl (0.2-1.3); eGFR 23.57
[2024-08-19] MEDS: APRESOLINE 5 MG IV (04:45)
[2024-08-19] MEDS: MERREM 500 MG IV ×3 (05:53→21:39)
[2024-08-19] MEDS: STERILE WATER FOR INJECTION 10 ML IV ×3 (05:53→21:39)
[2024-08-19] MEDS: TYLENOL/FEVERALL 325 MG RECTAL (05:53)
[2024-08-19] MEDS: SOLU-MEDROL PF 40 MG IV ×3 (05:54→17:03)
[2024-08-19] MEDS: LASIX 40 MG IV (06:37)
--- NOTE | 2024-08-19 07:06 | W.PN.UPDATE ---
Update Note
Progress Note Update
RN reported patient asked bipap to be off and that he felt nauseous, IV Zofran given once, was placed on mid flow and oxygen sat stayed at 88%, RT placed patient on high flow, order is placed,
Reported patient is still nauseous, and has a temp of 102.4 and Tylenol 650mg PO. IV Compazine 10mg given once
rectal Temp 103, additional Tylenol 325mg PO given
VBG result noted, ordered ABG
updated temp 100.3 rectally. 152/72, 95, 94% highflow.
[2024-08-19] MEDS: DUONEB 3 ML INH ×4 (07:26→19:28)
[2024-08-19 07:43] LABS: B.E. 0.6 mmol/L; PCO2 33 mmHg (35-48); PO2 185 mmHg (83-108); pH 7.47 (7.35-7.45)
--- NOTE | 2024-08-19 07:54 | PTCARENOTE ---
Pt rec'd from night RN, maxxed on hiflow 02 -(100%/50L) tachypneic, lethargic, repeat temp checked with result 100.6 at this time. ABG drawn and sent by RT, results noted, RT decreased HF to 80%/45L at this time. Call peters in hand -safe environment
maintained.
[2024-08-19 07:59] LABS: Glucose - Point of Care 154 mg/dl (70-99)
--- NOTE | 2024-08-19 08:31 | W.PN.PUL3 ---
Today's Communication / Plan
-
Continue with supplemental oxygen titrating flow rate to keep SpO2 >90-94%
Given his CT chest findings with bilateral consolidative opacities, GGO, subpleural reticular opacities with traction bronchiectasis and b/l pleural effusions, there is concern for multiple etiologies including heart failure, bacterial pneumonia,
possibly [id number] related ILD versus organized pneumonia -> besides antibiotics he may also benefit from systemic steroids; CRP level is elevated --> continue systemic steroids and wean as he clinically improves
Goal BG >100 and <180
Trend CRP
trend BNP
Abx as per ID
DuoNebs
Continue IV lasix
BiPAP prn during the day and with sleep
Encourage IS
PT/OT
Pulmonary service will continue to follow along
Assessment
-
Patient is a 64-year-old male with previous history of hypertension, diabetes, chronic kidney disease presenting to ER with complaints of shortness of breath. He had recently been diagnosed with acute COVID illness 7 days prior. He had been
receiving IV antibiotic infusions for cellulitis of his left lower extremity. Was reportedly 84% on 5 L in ER, chest x-ray demonstrating bibasilar infiltrates with left greater than right. proBNP greater than 27,000, there is metabolic acidosis
with elevated creatinine. He is not currently on pressors, he is admitted to ICU for severe sepsis.
Impression:
Acute heart failure exacerbation, proBNP greater than 27,000
Severe sepsis, presumed co-morbid pneumonia
Interstitial lung disease with subpleural reticular opacities, traction bronchiectasis with bilateral GGO and consolidative opacities- suspected due to recent covid-19 pneumonia; DDx also includes OP
Recent COVID illness
Metabolic acidosis - resolved
Acute kidney injury on CKD (baseline Cr 1.7)
Hyperglycemia
Leukocytosis
Abnormal chest x-ray
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
History of MRSA cellulitis
CKD 4
IDDM
Nephrotic range proteinuria
Positive proteinase 3 antibodies
Hypertension
Chronic anemia
Left foot osteomyelitis treated with daptomycin
Anxiety
Plan
Oxygen needs: currently on 10L via midflow nasal cannula, BIPAP nightly/PRN
Prior history of lung disease: none, but has had recent history of CHF and COVID illness
Supplemental O2 as indicated to maintain sats > 89%, wean as tolerated
Admission CXR reviewed indicating L>R infiltrate
He had CT chest this AM showing bilateral consolidative opacities with subpleural reticular opacities, GGO, and traction bronchiectasis (worse in the bases>apices) and small bilateral pleural effusions
- DDx for this includes organizing pneumonia vs [id number] ILD/pulmonary fibrosis in the setting of acute decompensated heart failure; bacterial pneumonia also contributing
- Continue IV lasix with 40mg daily, trend sCr and UOP, aim for net negative fluid balance
- CRP level was 200.9 on 08/18/2024 --> systemic steroids started with solumedrol 40mg IV q6hr --> wean as he clinically improves
- Maintain euglycemia with goal BG >100 and <180 while on high dose steroids; continue basal-bolus SQ insulin
- trend CRP level
- DuoNebs QID
- ID on board --> continue meropenem + dapto; defer duration of ABx to ID, but would favor at least 7-10 days total given the extensive changes seen on CT chest today (08/18/2024)
Hemodynamically stable, not requiring pressors.
Cardiac history reviewed--recent history of HFpEF, discharged 08/08/24
proBNP from 08/14/2024 >18459
Prior ECHO reviewed indicating preserved function
Cards eval obtained
Monitor on telemetry
Replete K>4, Mg>2
IVY present superimposed on CKD, baseline creatinine approximately 1.6�1.8
Renal following--recurrent volume issues, unclear candidacy for HD
Follow urine output and trend sCr; renally dose all meds/Abx
On 08/18, bicarb supplementation stopped given his serum HCO3 level is now 25; blood gas on AM of 08/19/2024 shows acute respiratory alkalosis
Fever and increased WBC on presentation, suspect post COVID PNA
Started on empiric antibiotics, ID consult obtained -- on meropenem + daptomycin s/p Levaquin on 08/17/2024 and cefepime/vancomycin on 08/14/2024
Blood cultures show NGTD (collected 08/14/2024 + 08/17/2024); sputum culture from 08/16/2024 (poor sample) + repeated on 08/17/2024 that shows NGTD
Recent history of MRSA infection involving L-foot
Follow fever trend, WBC count
Lactate not elevated on admission (1.0 on 08/14/2024) - no need to continue trending
PT/OT, OOB encouraged
Pulmonary service will continue to follow along
Diagnostic Data
Chest X-Ray: 08/14/24- Findings suggesting moderate left upper and lower lobe and moderate right lower lobe pneumonia. Progressed.
CT Chest w/o contrast 08/18/2024:
1. Bilateral airspace, groundglass, and reticular opacities as described, most likely related to pneumonia. As above, these findings are most pronounced in the lingula and the right middle lobe. Very small bilateral pleural effusions.
2. Air-fluid level within the esophagus compatible with dysmotility or reflux.
3. Mild coronary and aortic atherosclerosis.
Echo: 07/10/2024:
1. Mild concentric LVH with EF 60-65%
2. Mild RVE
3. LAE
4. No evidence of significant valvular disease
Reports and relevant images were personally reviewed.
Total time spent today was 54 minutes for this encounter. Time includes reviewing laboratory test/imaging results, reviewing pertinent medical records, obtaining and reviewing medical history, performing an appropriate exam, ordering medications,
tests and procedures. Time also includes documentation of this encounter, coordinating patient care and communicating with other healthcare professionals. Total time does not include separately billed tests performed on this date of service.
Subjective Data
-
Date of Service:
Date of Service: August 19, 2024
Chief Complaint: Pulmonary Follow Up
Subjective:
Patient was seen and evaluated today at bedside. Denies shortness of breath and has occasional cough. Currently on 10 L/min nasal cannula saturating 93%. Heart rate 81 and BP 145/78. He denies chest pain, DUARTE, abdominal pain, nausea, or chills.
He was febrile overnight into this morning with Tmax of 103 �F.
Review of Systems
General: Other (Negative unless mentioned above)
Objective Data
Data Reviewed
Vital Signs / I&O / Oxygen:
Vital Signs
Temp Pulse Resp BP Pulse Ox
99.1 F 87 35 156/73 98
08/19/24 08:02 08/19/24 07:39 08/19/24 07:39 08/19/24 07:00 08/19/24 07:47
Intake and Output
08/18/24 08/19/24 08/20/24
06:59 06:59 06:59
Intake Total 480 / 480 300 / 300
Output Total 520 / 520 1600 / 1600
Balance -40 / -40 -1300 / -1300
SaO2 98
Nasal Cannula flow liters per 45
minute
Physical Exam
General: Respiratory Distress (negative), Comfortable, Chills (negative), Sweats (negative) and Other (NAD)
HEENT: Normocephalic, Anicteric and Moist Mucous Membranes
Cardiovascular: S1-S2 and Peripheral Edema (+1 lower extremity pitting edema bilaterally (R>L))
Respiratory: Wheeze (negative), Crackles (Bilaterally in the bases to midlung domingo), Rhonchi (negative) and Non-Labored Respirations
GI: Soft, Non Distended, Non Tender and Normal Bowel Sounds
Neurology: AO x 3 and Tremors (negative)
Skin: Warm, Dry, Cyanosis (negative) and Jaundice (negative)
Labs/Micro/Reports
Lab Data
08/19/24 03:24
08/19/24 03:24
Laboratory Results
08/19/24
07:34
pH 7.47 H
pCO2 33 L
pO2 185 H
HCO3 24.0
O2 Delivery Level
Microbiology
08/14/24 08:59 Blood/Venous Blood Culture - Final
No Growth - Final Report
08/17/24 12:53 Blood/Venous Blood Culture - Preliminary
No Growth in 24 hours- Final report to follow
08/17/24 12:15 Blood/Venous Blood Culture - Preliminary
No Growth in 24 hours- Final report to follow
08/14/24 09:25 Blood/Venous Blood Culture - Preliminary
No Growth in 4 days- Final report to follow
08/17/24 15:21 Sputum Respiratory Culture - Preliminary
Usual Respiratory Jyoti
08/17/24 15:21 Sputum Gram Stain - Preliminary
08/16/24 03:56 Sputum Respiratory Culture - Final
08/16/24 03:56 Sputum Gram Stain - Final
--- NOTE | 2024-08-19 09:04 | W.PN.CD ---
Today's Communication / Plan
-
IV lasix directed by nephrology
IV abx
Impression / Plan
-
64M with hypertension, hyperlipidemia, type 2 diabetes mellitus, CKD4 (known diabetic nephropathy), with diabetic neuropathy, MRSA bacteremia with left foot osteomyelitis (on daptomycin), chronic kidney disease, HFpEF recent discharge after
hospitalization for lower extremity cellulitis, COVID-19 pneumonia and HFpEF who presented to the emergency department with increasing weakness and shortness of breath after discharged just a couple days ago.
Wrapper Stripper: Dr. Nuñez
Acute hypoxic respiratory insufficiency:
-requiring BIPAP and high flow NC
-Mixed etiology in this patient with recent COVID1 and now with suspected post Covid PNA. (Chest x-ray 08/15/2024 patchy airspace opacities bilateral may represent multifocal pneumonia) .
Remains intermittently Fever = 101.5 -08/16/24
- being treated for post Covid PNA
- abx per ID
Acute on chronic HFpEF:
-I's and O's more than -875 L negative over the last 24 hours.
-Weights now 175 lbs lowest it has been in awhile
-Monitor renal function on current diuretics. Creatinine currently 2.9 08/19 down from 3.1 on 08/18
- IV lasix as directed by nephrology
NSVT:
-brief 08/14/24 , recent EF normal
-continue BB and follow tele
Covid19, pneumonia: Initial COVID-positive 08/05/2024
-ID and pulm following- continue treatment as planned
Acute on CKD4, diabetic nephropathy
-Nephrotic range protein on last admission
-High risk of further deterioration
-Nephrology following
Hx osteomyelitis, chronic daptomycin
Chronic anemia,
-did receive transfusion last hospitalization,
- monitor
Hypertension, stable,
Dyslipidemia,
Type 2 diabetes mellitus, Tx per primary team
Physical Exam
Vital Signs/Labs
Vital Signs
Temp Pulse Resp BP Pulse Ox
99.1 F 87 35 156/73 98
08/19/24 08:02 08/19/24 07:39 08/19/24 07:39 08/19/24 07:00 08/19/24 07:47
08/18/24 08/19/24 08/20/24
06:59 06:59 06:59
Actual Weight 175 lb 7.807 oz
08/19/24 03:24
08/19/24 03:24
PT 17.0 Sec (11.4-14.6) H 08/14/24 14:46
INR 1.33 08/14/24 14:46
APTT 40.0 Sec (23.4-35.0) H 08/14/24 14:46
Magnesium 2.3 mg/dl (1.6-2.3) 08/19/24 03:24
08/14/24
08:59
Yak-N-Xmnfavbnpme Pept > 75108
Physical Exam
Constitutional: No acute distress
EENT: Anicteric
Cardiovascular: Rhythm & rate is regular and Pedal edema present (2+)
Respiratory: Respiratory effort normal, Crackles Present and Rhonchi Present
GI: Soft
Neuro/Psych: Alert and Oriented
Data Reviewed
-
Date of Service: August 19, 2024
EKG: Tracing Personally Visualized and interpreted (sr)
Echo: Report Reviewed by me
Labs: Labs Reviewed by me
[2024-08-19] MEDS: NOVOLOG FLEXPEN-MODERATE RESISTANCE 1 UNITS SC (09:21)
[2024-08-19] MEDS: HEPARIN 5000 UNITS SC ×2 (09:21→19:46)
[2024-08-19] MEDS: ATIVAN 1 MG PO ×2 (09:21→21:39)
[2024-08-19] MEDS: NEURONTIN 300 MG PO ×2 (09:21→19:46)
[2024-08-19] MEDS: WELLBUTRIN SR (12 hour sustained release) 150 MG PO ×2 (09:22→19:46)
[2024-08-19] MEDS: COREG 6.25 MG PO ×2 (09:22→19:45)
--- NOTE | 2024-08-19 10:15 | W.PN.NEPH.PH ---
Today's Communication / Plan
-
IV lasix and follow labs
Assessment/Plan
-
Impression:
Severe sepsis, presumed pneumonia
Acute hypoxic respiratory failure
Acute on chr DCHF
Resolved COVID
CKD4 baseline high 2 range
Metabolic acidosis
Anemia
Left Foot osteomyelitis
HTN
+PR3 Ab
Nephrotic range proteinuria of 5 g, biopsy-proven diabetic nephropathy
07/21/24: K biopsy nodular D nephropathy
IFTA mod to severe
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
Plan:
IVY-likely multifactorial, with sepsis, CHF,PNA
creatinine better at 2.9, BUN ~81, non oliguric
cont with lasix 40mg IV daily
cont to hold lisinopril and avoid nephrotoxins (hemodynamically stable)
continue po bicarb for met acidosis: improving
resp issue mostly PNA than CHF, Abx per ID
on high flow per ICU
dose meds renally
BP stable on BB
follow h/h-stable, had few doses of IV fe last admit, reportedly had heme +ve stool before
We have reviewed multiple occasions that he is at high risk of HD which he understands
hopefully escape HD this time too
d/w nursing
labs in am
-
-
Date of Service: August 19, 2024
CC / HPI / ROS
-
Chief Complaint:
IVY with CKD
History of Present Illness:
cr down to 2.9 ,BUN 81
wt no change, on high flow O2
febrile last night
Remains on daptomycin and meropenem , Levaquin added on 08/17
anemic-hb stable
WBC worse to 16k
Review of Systems:
no cp
sob and cough
no n/v
Nonoliguric
Weights unchanged
Labs
-
Labs:
WBC 16.0 10^3/uL (4.8-10.8) H 08/19/24 03:24
RBC 3.09 10^6/uL (4.70-6.10) L 08/19/24 03:24
Hgb 8.4 g/dL (13.0-18.0) L 08/19/24 03:24
Hct 25.6 % (39.0-52.0) L 08/19/24 03:24
Plt Count 416 10^3/uL (130-400) H 08/19/24 03:24
Sodium 142 mmol/L (135-145) 08/19/24 03:24
Potassium 4.3 mmol/L (3.5-5.1) 08/19/24 03:24
Chloride 104 mmol/L (98-107) 08/19/24 03:24
Carbon Dioxide 26 mmol/L (22-30) 08/19/24 03:24
BUN 81 mg/dl (9-20) H 08/19/24 03:24
Creatinine 2.9 mg/dL (0.7-1.3) H 08/19/24 03:24
eGFR 23.57 08/19/24 03:24
Glucose 129 mg/dl (70-99) H 08/19/24 03:24
Calcium 8.2 mg/dl (8.4-10.2) L 08/19/24 03:24
Phosphorus 4.2 mg/dl (2.5-4.5) 08/19/24 03:24
Ipq-K-Drdvhcdpimv Pept > 69767 pg/ml 08/14/24 08:59
Albumin 2.5 g/dl (3.5-5.0) L 08/19/24 03:24
Physical Exam
-
Vital Signs:
Vital Signs
Temp Pulse Resp BP Pulse Ox
97.6 F 75 23 130/68 98
08/19/24 11:55 08/19/24 11:29 08/19/24 11:29 08/19/24 11:00 08/19/24 11:29
Cardiovascular:: Regular rate and rhythm
Respiratory:: Bilateral: Coarse
Lung Excursion:: Normal
Abdomen:: Nontender and Soft
Extremity Edema:: +1: Bilateral:
[place] Catheter: No
--- NOTE | 2024-08-19 10:19 | PTCARENOTE ---
Pt woke up from nap, AOx3, hungry and thirsty, meds administered as per NOV, assessment completed, assisted to stand to void for 500 ml yellow urine, CHG bath completed, linens changed, now seated up in chair to eat breakfast. Brother David called
in on phone, asking for MD update, this RN gave nursing update, patient spoke to brother. PRN Tylenol administered for 6/10 chronic back pain per pt's request. Normothermic currently. VSS, tolerating activity on high flow 80%/45L, sat 94%. Safe
environment maintained.
--- NOTE | 2024-08-19 10:38 | CM ---
CM following re: discharge planning.
Reviewed pt's chart, met with pt. Pt requires 45L HFNC with FIO2 60%, Bi-pap at , continue supportive care,
PT and OT evaluations noted - SNF level of care recommended. Pt is aware, politely expressed his disagreement with going to a SNF. Pt reports he was at [facility] not far ago and he feels he will be doing better at home with [facility]. Pt
reports he livers with brother, his family and a son, has supportive ex- and pt stated they will help. Pt stated his brother is a main supporter.
Prior to admission to , pt had [facility] and was receiving outpatient infusion therapy at .
D/C plan: per pt's request, home with [facility] and family support.
CM will follow with discharge plan updates as hospitalization progresses
--- NOTE | 2024-08-19 11:23 | PTCARENOTE ---
Pt reassessed, remains comfortable on high flow 60%/45L since 10:10, sat 98%. Pt with no further complaint of pain since Tylenol administration at 10 am. Sitting in chair listening to music right now. No other needs expressed at this time.
[2024-08-19 12:02] LABS: Glucose - Point of Care 338 mg/dl (70-99)
[2024-08-19] MEDS: NOVOLOG FLEXPEN-MODERATE RESISTANCE 7 UNITS SC (12:34)
--- NOTE | 2024-08-19 13:34 | PTCARENOTE ---
Pt weaned off high flow to midflow 10L at 13:30, sa02 94%. Remains seated up in chair...eating lunch.
--- NOTE | 2024-08-19 13:54 | W.PN.ID1 ---
Date of Service
Date of Service: August 19, 2024
Today's Communication
Continue current antibiotics.
Assessment / Plan
Relapsed fever
- Temps to 103 last evening.
Pneumonia
S/P COVID
- s/p molnupiravir/decadron; antigen testing negative x2
CKD4 - nephrotic range proteinuria
CHF
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
- relapse of fevers; improved
- repeat covid ag today negative
- blood cultures x2
- sputum culture with usual respiratory davie
- c/w daptomycin - dosing 10 mg/kg q48 hr - will complete the course 08/25
- c/w meropenem for now (d#6), deescalation as able
- Continue to follow clinically
����������������������������������������������������������
Chief Complaint
-: Fever, Leukocytosis and Pneumonia
Subjective / Review of Systems
Patient seen and examined. Reports fevers overnight. Still with cough and sputum production. No hemoptysis.
Vital Signs / Physical Exam
Vital Signs
Vital Signs
Temp Pulse Resp BP Pulse Ox
97.6 F 72 19 140/84 94
08/19/24 11:55 08/19/24 13:00 08/19/24 13:00 08/19/24 13:00 08/19/24 13:00
Physical Exam
Constitutional: Comfortable, Chronically Ill and Non-toxic
Eyes: Sclera Anicteric
Cardiovascular: Regular Rate and S1/S2; Negative Murmur or Rub
Pulmonary: Coarse, Non Labored and Other (Scattered crackles throughout.)
Gastrointestinal: Soft, Non Tender, Non Distended and Normal Bowel Sounds
Extremities: Negative Cyanosis or Erythema
Skin: Warm and Dry; Negative Rash or Jaundice
Lines: Other (midline)
Objective Data
Lab Data
Lab Results
08/19/24 03:24
08/19/24 03:24
PT 17.0 Sec (11.4-14.6) H 08/14/24 14:46
INR 1.33 08/14/24 14:46
APTT 40.0 Sec (23.4-35.0) H 08/14/24 14:46
Estimated Creat Clear 29 ml/min 08/19/24 03:24
Lactic Acid Cancelled 08/14/24 12:45
Total Bilirubin 0.4 mg/dl (0.2-1.3) 08/19/24 03:24
AST 18 U/L (17-59) 08/19/24 03:24
ALT 21 U/L (0-50) 08/19/24 03:24
Alkaline Phosphatase 133 U/L (38-126) H 08/19/24 03:24
C-Reactive Protein 200.90 mg/L (0.0-10.00) H 08/18/24 04:43
Most recent labs reviewed.
Micro Results:
08/17/24 12:53 Blood Culture - Preliminary
Blood/Venous No Growth in 48 hours- Final report to follow
08/17/24 12:15 Blood Culture - Preliminary
Blood/Venous No Growth in 48 hours- Final report to follow
08/17/24 15:21 Respiratory Culture - Final
Sputum Usual Respiratory Davie
Gram Stain - Final
08/14/24 09:25 Blood Culture - Final
Blood/Venous No Growth - Final Report
08/14/24 08:59 Blood Culture - Final
Blood/Venous No Growth - Final Report
08/16/24 03:56 Respiratory Culture - Final
Sputum Gram Stain - Final
08/15/24 03:17 MRSA Screen - Final
Nose No Methicillin Resistant Staphylococcus aureus isolated.
08/14/24 14:46 Influenza Types A & B (LAURA) - Final
Nasal Swab Negative for Influenza A & B, NAAT
Negative results must be combined with clinical observations
and patient history.
Nucleic Acid Amplification test (NAAT)performed on the
[employer] ID NOW platform.
Imaging:
08/18/2024 CXR (2 view): Right upper extremity PICC line in place. Unchanged bibasilar consolidation, worse on the left. Increased diffuse interstitial opacity likely related to interstitial edema. Please see full dictation for additional detail.
Film personally viewed.
--- NOTE | 2024-08-19 14:52 | W.PN.HOSP.TC ---
Today's Communication/Plan
-
continue IV Lasix
continue IV abx
continue IV steroids
wean O2
Assessment / Plan
Assessment / Plan
Assessment:
Acute hypoxic respiratory failure
- wean O2 as able
Acute heart failure exacerbation, proBNP greater than 27,000
- continue IV Lasix per Nephrology/Cardiology; requires intensive monitoring of I/OS, weights, lytes
Severe sepsis, presumed co-morbid pneumonia
Interstitial lung disease with subpleural reticular opacities, traction bronchiectasis with bilateral GGO and consolidative opacities- suspected due to recent covid-19 pneumonia; DDx also includes OP
Recent COVID illness treated with Molnupiravir/steroids
- CT chest: Bilateral airspace, ground-glass, and reticular opacities as described, most likely related to pneumonia. As above, these findings are most pronounced in the lingula and the right middle lobe. Very small bilateral pleural effusions.
Air-fluid level within the esophagus compatible with dysmotility or reflux. Mild coronary and aortic atherosclerosis.
- CRP elevated; IV steroids started
- continue Meropenem (day 6)
Metabolic acidosis - resolved
Acute kidney injury on CKD stage 4 (baseline Cr 1.7) - multifactorial from sepsis, PNA, CHF
- monitor Cr daily; follow nephrology recs
- cont to hold lisinopril and avoid nephrotoxins
History of MRSA cellulitis
IDDM
Nephrotic range proteinuria
Positive proteinase 3 antibodies
essential Hypertension
Chronic anemia
Left foot osteomyelitis treating outpatient with daptomycin
- course to complete 08/25
Anxiety
DVT ppx: SC Heparin
Code: Full
Anticipated Discharge: > 48 hours
Subjective/Interval History
-
Date of Service: August 19, 2024
respiratory distress overnight on BiPAP, switched to hi-vijay O2 now back to mid-flow
started on IV steroids
Objective Data
-
Labs:
Laboratory Results
08/19/24 08/19/24
03:24 07:34
WBC 16.0 H
Hgb 8.4 L
Hct 25.6 L
Plt Count 416 H
HCO3 24.0
Sodium 142
Potassium 4.3
Chloride 104
Carbon Dioxide 26
BUN 81 H
Creatinine 2.9 H
Glucose 129 H
Calcium 8.2 L
Total Bilirubin 0.4
AST 18
ALT 21
Alkaline Phosphatase 133 H
Vital Signs:
Vital Signs
Temp Pulse Resp BP Pulse Ox
97.6 F 72 19 140/84 94
08/19/24 11:55 08/19/24 13:00 08/19/24 13:00 08/19/24 13:00 08/19/24 14:00
I&O
08/18/24 08/19/24 08/20/24
06:59 06:59 06:59
Intake Total 480 / 480 300 / 300 960 / 960
Output Total 520 / 520 1600 / 1600 950 / 950
Balance -40 / -40 -1300 / -1300 10 10
Physical Exam
-
General: No Apparent Distress
HEENT: Normocephalic and Atraumatic
Respiratory: Crackles; Negative Wheezes
Cardiac: Regular Rhythm and S1/S2
GI: Soft
Musculoskeletal: No Edema
Neuro: AO x 3
Psych: Calm
Data Reviewed
-
Total Time Spent with Patient (in minutes): 51
Labs: Labs Reviewed by me
[2024-08-19] MEDS: ATIVAN PO (16:11)
--- NOTE | 2024-08-19 16:42 | PTCARENOTE ---
Pt reassessed, awakened from nap by phone ringing, states he feels like he is getting slight headache -PRN Tylenol given. Pt maintaining sa02 94% on 6L midflow. Chatting on phone, no other complaints. Safe environment maintained.
[2024-08-19] MEDS: NOVOLOG FLEXPEN-MODERATE RESISTANCE 9 UNITS SC (17:03)
[2024-08-19 17:13] LABS: Glucose - Point of Care 379 mg/dl (70-99)
--- NOTE | 2024-08-19 20:30 | PTCARENOTE ---
Received pt from previous RN. Pt is AAOx3, flat. NSR on the monitor, +1 ankle edema. On 6L midflow, O2 sat 96%, lungs diminished/coarse/rhonchi, APODACA/tachypneic. Tubi cask maker removed from left leg. Pt is laying in bed with call peters in reach. Safe
environment maintained.
--- NOTE | 2024-08-19 21:40 | PTCARENOTE ---
Pt HS blood sugar reading RR high. Lab draw complete, BS 419. Scheduled Lantus given. KAYLA Johns notified, 14 unit novolog x1 given (see MAR).
--- NOTE | 2024-08-19 21:40 | PTCARENOTE ---
Pt HS blood sugar reading RR high. Lab draw complete, BS from lab draw 429. Scheduled Lantus given. KAYLA Johns notified, 14 unit novolog x1 given (see MAR).
[2024-08-19 21:50] LABS: Glucose - Point of Care 419 mg/dl (70-99)
[2024-08-19 22:14] LABS: Glucose 429 mg/dl (70-99)
[2024-08-19] MEDS: LANTUS 0.22 UNITS SC (22:22)
[2024-08-19] MEDS: NOVOLOG FLEXPEN 14 UNITS SC (22:36)
[2024-08-20] VITALS (20 sets, daily range): BP systolic 137–187; BP diastolic 69–101; PULSE 2–83; BMI 21.9
[2024-08-20] MEDS: SOLU-MEDROL PF 40 MG IV ×5 (00:09→23:12)
[2024-08-20 00:23] LABS: Glucose - Point of Care 427 mg/dl (70-99)
[2024-08-20 00:41] LABS: Glucose 400 mg/dl (70-99)
[2024-08-20] MEDS: NOVOLOG FLEXPEN 14 UNITS SC (01:11)
--- NOTE | 2024-08-20 01:17 | PTCARENOTE ---
Rechecked pt blood sugar, read RR high. Lab draw ordered, blood sugar 400. KAYLA Johns notified, 14 units novolog ordered (see MAR).
[2024-08-20 04:29] LABS: Hematocrit 29.5 % (39.0-52.0); Hemoglobin 9.5 g/dL (13.0-18.0); Mean Corp Hgb Conc. 32.2 g/dL (33.0-37.0); Mean Corpuscular Hgb 27.2 pg (27.0-31.0); Mean Corpuscular Volume 84.5 fL (80.0-94.0); Mean Platelet Volume 9.9 fL (7.4-10.4); Platelet Count 404 10^3/uL (130-400); Red Blood Cell Count 3.49 10^6/uL (4.70-6.10); Red Cell Dist. Width 16.4 % (11.5-14.5)
[2024-08-20 04:46] LABS: NT-proBNP > 27000 pg/ml
--- NOTE | 2024-08-20 04:46 | PTCARENOTE ---
Bipap removed and placed back on 6L midflow, O2 sat 93%.
[2024-08-20 04:56] LABS: Blood Urea Nitrogen 96 mg/dl (9-20); Calcium 8.5 mg/dl (8.4-10.2); Carbon Dioxide 24 mmol/L (22-30); Chloride 101 mmol/L (98-107); Estimated Creatinine Clearance 27 ml/min; Glucose 321 mg/dl (70-99); Magnesium 2.6 mg/dl (1.6-2.3); Phosphorus 6.5 mg/dl (2.5-4.5); Potassium 4.6 mmol/L (3.5-5.1); Sodium 138 mmol/L (135-145); eGFR 21.76
[2024-08-20] MEDS: STERILE WATER FOR INJECTION 10 ML IV ×3 (05:01→20:47)
[2024-08-20] MEDS: MERREM 500 MG IV ×3 (05:01→20:47)
[2024-08-20] MEDS: NOVOLOG FLEXPEN 10 UNITS SC (05:12)
--- NOTE | 2024-08-20 05:56 | PTCARENOTE ---
When pt stood to use the urinal O2 sat dropped to 85% on 6L midflow. O2 was increased to 8L, O2 sat 93%.
[2024-08-20] MEDS: DUONEB 3 ML INH ×4 (07:12→19:35)
[2024-08-20 07:43] LABS: Glucose - Point of Care 242 mg/dl (70-99)
[2024-08-20] MEDS: NOVOLOG FLEXPEN-HIGH RESISTANCE 4 UNITS SC (07:46)
[2024-08-20] MEDS: WELLBUTRIN SR (12 hour sustained release) 150 MG PO ×2 (07:49→20:48)
[2024-08-20] MEDS: COREG 6.25 MG PO ×2 (07:49→20:48)
[2024-08-20] MEDS: ATIVAN 1 MG PO ×3 (07:49→20:48)
[2024-08-20] MEDS: LASIX 40 MG IV (07:50)
[2024-08-20] MEDS: NEURONTIN 300 MG PO ×2 (07:50→20:48)
[2024-08-20] MEDS: HEPARIN 5000 UNITS SC ×2 (07:50→20:48)
--- NOTE | 2024-08-20 08:00 | PTCARENOTE ---
Pt received start of shift, HR SR. Palpable DP pulses. Pt on 8L midflow, O2 sat 93%. Lungs coarse/rhonchi present. Pt APODACA and tachypneic at rest. Productive cough with mtz sputum.
--- NOTE | 2024-08-20 08:01 | W.PN.CD ---
Today's Communication / Plan
-
continue IV per nephrology recommendations given CKD4
please call us back with additional questions
Impression / Plan
-
64M with hypertension, hyperlipidemia, type 2 diabetes mellitus, CKD4 (known diabetic nephropathy), with diabetic neuropathy, MRSA bacteremia with left foot osteomyelitis (on daptomycin), chronic kidney disease, HFpEF recent discharge after
hospitalization for lower extremity cellulitis, COVID-19 pneumonia and HFpEF who presented to the emergency department with increasing weakness and shortness of breath after discharged just a couple days ago.
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
Acute hypoxic respiratory insufficiency:
-requiring BIPAP and high flow NC
-Mixed etiology in this patient with recent COVID1 and now with suspected post Covid PNA. (Chest x-ray 08/15/2024 patchy airspace opacities bilateral may represent multifocal pneumonia) . Also with acute HF.
Fever
- being treated for post Covid PNA
- abx per ID
Acute on chronic HFpEF:
-high risk situation with CKD4 and cardiorenal syndrome
-continue IV lasix, with close monitoring of labs, tele, weight
-lasix has been directed by nephrology given CKD4
NSVT:
-brief 08/14/24 , recent EF normal
-continue BB and follow tele
Covid19, pneumonia: Initial COVID-positive 08/05/2024
-ID and pulm following- continue treatment as planned
Hx osteomyelitis, chronic daptomycin
Chronic anemia,
Hypertension, stable,
Dyslipidemia,
Type 2 diabetes mellitus, Tx per primary team
Physical Exam
Vital Signs/Labs
Vital Signs
Temp Pulse Resp BP Pulse Ox
97 F 82 20 169/82 92
08/20/24 07:43 08/20/24 07:15 08/20/24 07:15 08/20/24 06:09 08/20/24 07:15
08/19/24 08/20/24 08/21/24
06:59 06:59 06:59
Actual Weight 79.5 kg
08/20/24 04:11
08/20/24 04:11
PT 17.0 Sec (11.4-14.6) H 08/14/24 14:46
INR 1.33 08/14/24 14:46
APTT 40.0 Sec (23.4-35.0) H 08/14/24 14:46
Magnesium 2.6 mg/dl (1.6-2.3) H 08/20/24 04:11
08/14/24 08/20/24
08:59 04:11
Bgx-E-Parrcurfurp Pept > 60245 > 25610
Physical Exam
Constitutional: No acute distress
EENT: Moist mucous membranes
Cardiovascular: Rhythm & rate is regular, Systolic murmur absent, Pedal edema present and JVD present
Respiratory: Labored respirations and Crackles Present
Neuro/Psych: AO x 3
Data Reviewed
-
Date of Service: August 20, 2024
EKG: Other (Tele: SR 60s)
Labs: Labs Reviewed by me
--- NOTE | 2024-08-20 08:29 | W.PN.PUL3 ---
Today's Communication / Plan
-
Continue with supplemental oxygen titrating flow rate to keep SpO2 >90-94% - his O2 requirements are slowly improving which is encouraging
Given his CT chest findings with bilateral consolidative opacities, GGO, subpleural reticular opacities with traction bronchiectasis and b/l pleural effusions, there is concern for multiple etiologies including heart failure, bacterial pneumonia,
possibly [id number] related ILD versus organized pneumonia -> besides antibiotics he may also benefit from systemic steroids; CRP level is elevated --> continue systemic steroids and wean as he clinically improves
Goal BG >100 and <180 ---> starting insulin gtt
Trend CRP
trend BNP
Abx as per ID
DuoNebs
Continue IV lasix (nephro changing IV to PO lasix)
BiPAP prn during the day and with sleep
Encourage IS
PT/OT
Patient being upgraded to ICU level of care due to need for insulin drip. [facility]/pulmonary service will continue to follow along.
Assessment
-
Patient is a 64-year-old male with previous history of hypertension, diabetes, chronic kidney disease presenting to ER with complaints of shortness of breath. He had recently been diagnosed with acute COVID illness 7 days prior. He had been
receiving IV antibiotic infusions for cellulitis of his left lower extremity. Was reportedly 84% on 5 L in ER, chest x-ray demonstrating bibasilar infiltrates with left greater than right. proBNP greater than 27,000, there is metabolic acidosis
with elevated creatinine. He is not currently on pressors, he is admitted to ICU for severe sepsis.
Impression:
Acute heart failure exacerbation, proBNP greater than 27,000
Severe sepsis, presumed co-morbid pneumonia
Interstitial lung disease with subpleural reticular opacities, traction bronchiectasis with bilateral GGO and consolidative opacities- suspected due to recent covid-19 pneumonia; DDx also includes OP
Recent COVID illness
Metabolic acidosis - resolved
Acute kidney injury on CKD (baseline Cr 1.7)
Hyperglycemia
Leukocytosis
Abnormal chest x-ray
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
History of MRSA cellulitis
CKD 4
IDDM
Nephrotic range proteinuria
Positive proteinase 3 antibodies
Hypertension
Chronic anemia
Left foot osteomyelitis treated with daptomycin
Anxiety
Plan
Oxygen needs: currently on 6L/min improved from 10L/min (on 08/19) via midflow nasal cannula, BIPAP nightly/PRN
Prior history of lung disease: none, but has had recent history of CHF and COVID illness
Supplemental O2 as indicated to maintain sats > 89%, wean as tolerated
Admission CXR reviewed indicating L>R infiltrate
He had CT chest this AM showing bilateral consolidative opacities with subpleural reticular opacities, GGO, and traction bronchiectasis (worse in the bases>apices) and small bilateral pleural effusions
- DDx for this includes organizing pneumonia vs [id number] ILD/pulmonary fibrosis in the setting of acute decompensated heart failure; bacterial pneumonia also contributing
- Continue IV lasix with 40mg daily, trend sCr and UOP, aim for net negative fluid balance
- CRP level was 200.9 on 08/18/2024 --> this AM CRP remains elevated at 233 --> systemic steroids started on 08/19 with solumedrol 40mg IV q6hr --> wean as he clinically improves
- Maintain euglycemia with goal BG >100 and <180 while on high dose steroids; insulin gtt now being started (hyperglycemia protocol)
- trend CRP level
- DuoNebs QID
- ID on board --> continue meropenem + dapto; defer duration of ABx to ID, but would favor at least 7-10 days total given the extensive changes seen on CT chest from 08/18/2024
Hemodynamically stable, not requiring pressors.
Cardiac history reviewed--recent history of HFpEF, discharged 08/08/24
proBNP from 08/14/2024 >74632
Prior ECHO reviewed indicating preserved function
Cards eval obtained
Monitor on telemetry
Replete K>4, Mg>2
IVY present superimposed on CKD, baseline creatinine approximately 1.6�1.8
Renal following--recurrent volume issues, unclear candidacy for HD
Follow urine output and trend sCr; renally dose all meds/Abx
On 08/18, bicarb supplementation stopped given his serum HCO3 level is now 25; blood gas on AM of 08/19/2024 shows acute respiratory alkalosis
Fever and increased WBC on presentation, suspect post COVID PNA
Started on empiric antibiotics, ID consult obtained -- on meropenem + daptomycin s/p Levaquin on 08/17/2024 and cefepime/vancomycin on 08/14/2024
Blood cultures show NGTD (collected 08/14/2024 + 08/17/2024); sputum culture from 08/16/2024 (poor sample) + repeated on 08/17/2024 that shows NGTD
Recent history of MRSA infection involving L-foot
Follow fever trend, WBC count
Lactate not elevated on admission (1.0 on 08/14/2024) - no need to continue trending
PT/OT, OOB encouraged
Patient being upgraded to ICU level of care due to need for insulin drip. [facility]/pulmonary service will continue to follow along.
Critical care statement: A total of 38 minutes of critical care time was provided for this patient today. This includes management of unstable vital signs, evaluation of the patient at bedside, reviewing the patient's pertinent medical records
including radiographs, microbiology, laboratory evaluations, and discussion with primary team, consultants, pharmacy, nutrition, physical therapy, case management, charge nurse, critical care nursing, and respiratory therapy.
Diagnostic Data
Chest X-Ray: 08/14/24- Findings suggesting moderate left upper and lower lobe and moderate right lower lobe pneumonia. Progressed.
CT Chest w/o contrast 08/18/2024:
1. Bilateral airspace, groundglass, and reticular opacities as described, most likely related to pneumonia. As above, these findings are most pronounced in the lingula and the right middle lobe. Very small bilateral pleural effusions.
2. Air-fluid level within the esophagus compatible with dysmotility or reflux.
3. Mild coronary and aortic atherosclerosis.
Echo: 07/10/2024:
1. Mild concentric LVH with EF 60-65%
2. Mild RVE
3. LAE
4. No evidence of significant valvular disease
Reports and relevant images were personally reviewed.
Subjective Data
-
Date of Service:
Date of Service: August 20, 2024
Chief Complaint: Pulmonary Follow Up
Subjective:
Patient was seen and evaluated today at bedside. Says his shortness of breath is better but still coughing and bringing up green/off-white phlegm. Wore BiPAP overnight at 12/5cmH2O bled with 8 L/min - he was taken off this morning at around 4:45
AM.
Currently heart rate 76, BP 166/77 and saturating 91% on 6 L/min via midflow nasal cannula. Blood sugars remain elevated and is 321 this morning on chemistry. He currently denies chest pain, DUARTE, abdominal pain, nausea, fevers or chills.
Review of Systems
General: Other (Negative unless mentioned above)
Objective Data
Data Reviewed
Vital Signs / I&O / Oxygen:
Vital Signs
Temp Pulse Resp BP Pulse Ox
97 F 83 20 169/82 92
08/20/24 07:43 08/20/24 07:50 08/20/24 07:15 08/20/24 07:50 08/20/24 07:15
Intake and Output
08/19/24 08/20/24 08/21/24
06:59 06:59 06:59
Intake Total 300 / 300 1380 / 1380
Output Total 1600 / 1600 1550 / 1550
Balance -1300 / -1300 -170 / -170
SaO2 92
Nasal Cannula flow liters per 6
minute
Physical Exam
General: Respiratory Distress (negative), Comfortable, Chills (negative), Sweats (negative) and Other (NAD)
HEENT: Normocephalic, Anicteric and Moist Mucous Membranes
Cardiovascular: S1-S2 and Peripheral Edema (+2 lower extremity pitting edema bilaterally)
Respiratory: Wheeze (negative), Rhonchi ([place] in posterior right lower lobe), Non-Labored Respirations and Other (Coarse breath sounds heard bilaterally)
GI: Soft, Non Distended, Non Tender and Normal Bowel Sounds
Neurology: AO x 3 and Tremors (negative)
Skin: Warm, Dry, Cyanosis (negative) and Jaundice (negative)
Labs/Micro/Reports
Lab Data
08/20/24 04:11
08/20/24 04:11
Microbiology
08/17/24 12:53 Blood/Venous Blood Culture - Preliminary
No Growth in 48 hours- Final report to follow
08/17/24 12:15 Blood/Venous Blood Culture - Preliminary
No Growth in 48 hours- Final report to follow
08/17/24 15:21 Sputum Respiratory Culture - Final
Usual Respiratory Jyoti
08/17/24 15:21 Sputum Gram Stain - Final
08/14/24 09:25 Blood/Venous Blood Culture - Final
No Growth - Final Report
08/14/24 08:59 Blood/Venous Blood Culture - Final
No Growth - Final Report
--- NOTE | 2024-08-20 09:00 | W.PN.HOSP.TC ---
Today's Communication/Plan
-
continue IV steroids
continue IV Lasix
continue IV Abx
wean O2 as able
continue IS/Acapella, nasal spray
Brother updated
Assessment / Plan
Assessment / Plan
Assessment:
Acute hypoxic respiratory failure
- wean O2 as able; currently on 8L mid-flow but sats 88-90%
Acute heart failure exacerbation, proBNP greater than 27,000
- continue IV Lasix per Nephrology/ requires intensive monitoring of I/OS, weights, lytes
- Cardiology signed off
Severe sepsis, presumed co-morbid pneumonia
Interstitial lung disease with subpleural reticular opacities, traction bronchiectasis with bilateral GGO and consolidative opacities- suspected due to recent covid-19 pneumonia; DDx also includes OP
Recent COVID illness treated with Molnupiravir/steroids
- CT chest: Bilateral airspace, ground-glass, and reticular opacities as described, most likely related to pneumonia. As above, these findings are most pronounced in the lingula and the right middle lobe. Very small bilateral pleural effusions.
Air-fluid level within the esophagus compatible with dysmotility or reflux. Mild coronary and aortic atherosclerosis.
- CRP elevated; IV steroids started 08/19/24
- continue Meropenem (day 7)
Metabolic acidosis - resolved
Acute kidney injury on CKD stage 4 (baseline Cr 1.7) - multifactorial from sepsis, PNA, CHF
- monitor Cr daily; follow nephrology recs
- cont to hold lisinopril and avoid nephrotoxins
History of MRSA cellulitis
IDDM
steroid induced hyperglycemia
- recent A1c 5.7%
- continue Basal/Bolus + SSI
- consult [employer] Service for additional management
Nephrotic range proteinuria
Positive proteinase 3 antibodies
essential Hypertension
- holding JOSE
- continue Coreg
Chronic anemia
Left foot osteomyelitis treating outpatient with daptomycin
- course to complete 08/25 per ID
Anxiety
- continue Ativan/Gabapentin
DVT ppx: SC Heparin
Code: Full
Anticipated Discharge: > 48 hours
Subjective/Interval History
-
Date of Service: August 20, 2024
on 8L NC
sats marginally around 88-90 at most times
feels nasally congested
Objective Data
-
Labs:
Laboratory Results
08/19/24 08/20/24 08/20/24
21:48 00:19 04:11
WBC 12.0 H
Hgb 9.5 L
Hct 29.5 L
Plt Count 404 H
Sodium 138
Potassium 4.6
Chloride 101
Carbon Dioxide 24
BUN 96 H
Creatinine 3.1 H
Glucose 429 H 400 H 321 H
Calcium 8.5
Vital Signs:
Vital Signs
Temp Pulse Resp BP Pulse Ox
97 F 83 20 169/82 92
08/20/24 07:43 08/20/24 07:50 08/20/24 07:15 08/20/24 07:50 08/20/24 07:15
I&O
08/19/24 08/20/24 08/21/24
06:59 06:59 06:59
Intake Total 300 / 300 1380 / 1380
Output Total 1600 / 1600 1550 / 1550
Balance -1300 / -1300 -170 / -170
Physical Exam
-
General: Respiratory Distress (mild)
HEENT: Normocephalic and Atraumatic
Respiratory: Rhonchi, Crackles and Decreased Breath Sounds
Cardiac: Regular Rhythm and S1/S2
GI: Soft
Genito-urinary: No Costovertebral Tender
Neuro: AO x 3
Psych: Calm
Data Reviewed
-
Total Time Spent with Patient (in minutes): 51
Labs: Labs Reviewed by me
--- NOTE | 2024-08-20 09:58 | W.PN.ID1 ---
Date of Service
Date of Service: August 20, 2024
Today's Communication
Continue abx.
Assessment / Plan
Relapsed fever
- Improved
Pneumonia
S/P COVID
- s/p molnupiravir/decadron; antigen testing negative x2
CKD4 - nephrotic range proteinuria
CHF
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
- relapse of fevers; improved
- repeat covid ag today negative
- blood cultures x2
- sputum culture with usual respiratory davie
- Continue daptomycin - dosing 10 mg/kg q48 hr - to finish course 08/25/24
- c/w meropenem for now (d#7), deescalation as able
- Continue to follow clinically
����������������������������������������������������������
Chief Complaint
-: Fever, Leukocytosis and Pneumonia
Subjective / Review of Systems
Review of Systems: No Fever, Cough, Sputum Production and No Chest Pain
Vital Signs / Physical Exam
Vital Signs
Vital Signs
Temp Pulse Resp BP Pulse Ox
97 F 83 20 169/82 92
08/20/24 07:43 08/20/24 07:50 08/20/24 07:15 08/20/24 07:50 08/20/24 07:15
Physical Exam
Constitutional: Comfortable, Chronically Ill and Non-toxic
Eyes: Sclera Anicteric
Cardiovascular: Regular Rate and S1/S2
Pulmonary: Coarse, Non Labored and Other (Scattered crackles throughout.)
Gastrointestinal: Soft, Non Tender, Non Distended and Normal Bowel Sounds
Extremities: Negative Cyanosis or Erythema
Skin: Warm and Dry; Negative Rash or Jaundice
Lines: Other (midline)
Objective Data
Lab Data
Lab Results
08/20/24 04:11
08/20/24 04:11
PT 17.0 Sec (11.4-14.6) H 08/14/24 14:46
INR 1.33 08/14/24 14:46
APTT 40.0 Sec (23.4-35.0) H 08/14/24 14:46
Estimated Creat Clear 27 ml/min 08/20/24 04:11
Lactic Acid Cancelled 08/14/24 12:45
Total Bilirubin 0.4 mg/dl (0.2-1.3) 08/19/24 03:24
AST 18 U/L (17-59) 08/19/24 03:24
ALT 21 U/L (0-50) 08/19/24 03:24
Alkaline Phosphatase 133 U/L (38-126) H 08/19/24 03:24
C-Reactive Protein 233.30 mg/L (0.0-10.00) H 08/20/24 04:11
Most recent labs reviewed.
Micro Results:
08/17/24 12:53 Blood Culture - Preliminary
Blood/Venous No Growth in 48 hours- Final report to follow
08/17/24 12:15 Blood Culture - Preliminary
Blood/Venous No Growth in 48 hours- Final report to follow
08/17/24 15:21 Respiratory Culture - Final
Sputum Usual Respiratory Davie
Gram Stain - Final
08/14/24 09:25 Blood Culture - Final
Blood/Venous No Growth - Final Report
08/14/24 08:59 Blood Culture - Final
Blood/Venous No Growth - Final Report
08/16/24 03:56 Respiratory Culture - Final
Sputum Gram Stain - Final
08/15/24 03:17 MRSA Screen - Final
Nose No Methicillin Resistant Staphylococcus aureus isolated.
08/14/24 14:46 Influenza Types A & B (LAURA) - Final
Nasal Swab Negative for Influenza A & B, NAAT
Negative results must be combined with clinical observations
and patient history.
Nucleic Acid Amplification test (NAAT)performed on the
[employer] platform.
Imaging:
08/18/2024 CXR (2 view): Right upper extremity PICC line in place. Unchanged bibasilar consolidation, worse on the left. Increased diffuse interstitial opacity likely related to interstitial edema. Please see full dictation for additional detail.
Film personally viewed.
[2024-08-20] MEDS: CUBICIN 16 MG IV (10:01)
--- NOTE | 2024-08-20 10:01 | W.PN.NEPH.PH ---
Today's Communication / Plan
-
Change IV Lasix to 40 mg p.o. Lasix
Follow BMP
Increase carvedilol to 12.5 mg twice daily
Assessment/Plan
-
Impression:
Severe sepsis, presumed pneumonia
Acute hypoxic respiratory failure
Acute on chr DCHF
Resolved COVID
CKD4 baseline high 2 range
Metabolic acidosis
Anemia
Left Foot osteomyelitis
HTN
+PR3 Ab
Nephrotic range proteinuria of 5 g, biopsy-proven diabetic nephropathy
07/21/24: K biopsy nodular D nephropathy
IFTA mod to severe
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
Plan:
IVY-likely multifactorial, with sepsis, CHF,PNA
creatinine up to 3.1 and BUN up to 96
Nonoliguric with approximately 1 L urine output
changed lasix to 40mg po daily, weights stable
cont to hold lisinopril and avoid nephrotoxins (hemodynamically stable)
continue po bicarb for met acidosis: improving
resp issue mostly PNA than CHF, Abx per ID
on high flow per ICU
dose meds renally
BP stable on BB
follow h/h-stable, had few doses of IV fe last admit, reportedly had heme +ve stool before
We have reviewed multiple occasions that he is at high risk of HD which he understands
hopefully escape HD this time too
d/w nursing
labs in am
-
-
Date of Service: August 20, 2024
CC / HPI / ROS
-
Chief Complaint:
IVY with CKD
History of Present Illness:
Creatinine and BUN rising to 3.1 and 96
wt no change, on high flow O2
febrile last night
Remains on daptomycin and meropenem , Levaquin added on 08/17
anemic-hb stable
WBC worse to 16k
Review of Systems:
no cp
sob and cough continues
no n/v
Nonoliguric
Weights unchanged
Labs
-
Labs:
WBC 12.0 10^3/uL (4.8-10.8) H 08/20/24 04:11
RBC 3.49 10^6/uL (4.70-6.10) L 08/20/24 04:11
Hgb 9.5 g/dL (13.0-18.0) L 08/20/24 04:11
Hct 29.5 % (39.0-52.0) L 08/20/24 04:11
Plt Count 404 10^3/uL (130-400) H 08/20/24 04:11
Sodium 138 mmol/L (135-145) 08/20/24 04:11
Potassium 4.6 mmol/L (3.5-5.1) 08/20/24 04:11
Chloride 101 mmol/L (98-107) 08/20/24 04:11
Carbon Dioxide 24 mmol/L (22-30) 08/20/24 04:11
BUN 96 mg/dl (9-20) H 08/20/24 04:11
Creatinine 3.1 mg/dL (0.7-1.3) H 08/20/24 04:11
eGFR 21.76 08/20/24 04:11
Glucose 321 mg/dl (70-99) H 08/20/24 04:11
Calcium 8.5 mg/dl (8.4-10.2) 08/20/24 04:11
Phosphorus 6.5 mg/dl (2.5-4.5) H 08/20/24 04:11
Ssh-S-Fqqqqmobujv Pept > 47273 pg/ml 08/20/24 04:11
Albumin 2.5 g/dl (3.5-5.0) L 08/19/24 03:24
Physical Exam
-
Vital Signs:
Vital Signs
Temp Pulse Resp BP Pulse Ox
97 F 83 20 169/82 92
08/20/24 07:43 08/20/24 07:50 08/20/24 07:15 08/20/24 07:50 08/20/24 07:15
Cardiovascular:: Regular rate and rhythm
Respiratory:: Bilateral: Coarse and Bilateral: Rales
Lung Excursion:: Normal
Abdomen:: Nontender and Soft
Extremity Edema:: +1: Bilateral:
[place] Catheter: No
[2024-08-20] MEDS: OCEAN, SALINE MIST 2 SPRAYS NASAL (10:11)
--- NOTE | 2024-08-20 10:15 | PN.DE.MGMTRT ---
Insulin Management
- -
08/20/2024: Diabetes Management Consult
64 year old Male who presented tp the ED with increasing weakness and SOB due to Acute hypoxic Resp Failure. Pt was recently d/c'd after hospitalization for lower extremity cellulitis, COVID-19 pneumonia and HFpEF a couple days ago. PMH: HTN, HLD,
Severe Peripheral Neuropathy, CKD III, Lumbar DDD, Anxiety /Depression, MRSA bacteremia with left foot osteomyelitis (on daptomycin), HFpEF and T2DM. Was taking
Recent A1C was 5.7on 07/10/24, had been 14.1% in 10/2023. Pt is not a good historian, states he takes 75/25 but doesn't take a standard dose, he reports taking his insulin on a SS, ~ 10-25 units in the morning and no other insulin or diabetes
medications. He has a monitor and checks his blood sugars 3x/day.
He is currently ordered Lantus 22 units @HS, NovoLog 7 units AC and high corrective insulin.
Pt awake, alert, sitting up in chair on O2, offers no complaints. Able to briefly discuss diabetes management.
He was started on IV steroids contributing to hyperglycemia.
His glucose trended up to 429 overnight, pt received a total of 56 units of insulin and glucose remains elevated.
FBG 242, received 4 units of corrective insulin, 1st dose of AC NovoLog to be administered at lunch.
Will follow glucose today for further needed adjustments, plan will be to initiate glycemic protocol if lunch time blood sugar >180
Discussed with nurse and ICU team, nurse will TT with lunch time blood sugar.
.
Diabetes History
- -
Type of Diabetes: 2 requiring insulin
Pre-Admission Diabetes Regimen
08/20/24
04:11
Creatinine 3.1 H
Insulin Pump Settings
IP Diabetes Regimen
08/19/24 08/19/24 08/19/24
11:50 17:01 21:37
Glucose
POC Glucose 338 H 379 H 419 H
08/19/24 08/20/2424
21:48 00:10 00:19
Glucose 429 H 400 H
POC Glucose 427 H
08/20/24 08/20/24
04:11 07:32
Glucose 321 H
POC Glucose 242 H
Meal type: Breakfast
Amount consumed: 100%
Patient Education
--- NOTE | 2024-08-20 10:36 | PTCARENOTE ---
Pt appears agitated w/ current diet order. Attempted to educate pt on adverse effects of high blood sugar, pt states he doesn't want to hear it. Reinforced importance of BG control. Pt c/o 'stuffiness' in nose not allowing oxygen in, PRN Saline
nasal spray administered.
[2024-08-20 12:23] LABS: Glucose - Point of Care 378 mg/dl (70-99)
[2024-08-20] MEDS: NOVOLOG FLEXPEN 7 UNITS SC (12:23)
[2024-08-20] MEDS: NOVOLOG FLEXPEN-HIGH RESISTANCE 12 UNITS SC (12:24)
--- NOTE | 2024-08-20 14:42 | CM ---
CM following re: discharge planning.
Reviewed pt's chart, met with pt. Pt requires 10 L midflow NC with saturation 95%, Bi-pap at , continue supportive care,
PT and OT evaluations noted - SNF level of care recommended. Pt is aware, continue to express his desire to return back home with [facility]. Pt reports he lives with brother, his family and a son, has supportive ex- and pt stated they will help.
Pt stated his brother is a main supporter.
Prior to admission to , pt had [facility] and was receiving outpatient infusion therapy at .
A referral to [facility] made.
D/C plan: per pt's request, home with [facility] and family support.
CM will follow with discharge plan updates as hospitalization progresses
--- NOTE | 2024-08-20 14:53 | PTCARENOTE ---
Pt weaned down to 6L midflow, O2 sat 91-94%. Pt states saline nasal spray has helped clear up nose. Assessment otherwise unchanged.
[2024-08-20] MEDS: NOVOLIN R 6 UNITS IV (15:57)
[2024-08-20 16:03] LABS: Glucose - Point of Care 313 mg/dl (70-99)
[2024-08-20] MEDS: NOVOLIN R INSULIN INFUSION 100 IV ×2 (16:03→21:58)
--- NOTE | 2024-08-20 16:30 | PTCARENOTE ---
Rec'd pt at 1545 awake alert and oriented resting in bed visiting his son. Did refuse PT/OT . Speech is clear. Denies discomfort with the exception of rib soreness when he takes a deep breath. RICKS. Denies headache or dizziness. Skin is pale pink wm
and dry. L foot wound as documented. Respirs are overall unlabored on RA. Pt states his breathing feels ok. Currently on 6L midlflow. BS are decreased at the bases with few base crackles. Getting about 1600 on IS. Sats are 94%. Monitor SR. + pulses.
+1 bilateral ankle/foot edema. Extrem are warm. Denies chest pain. VS as documented. Abd is soft with + BS. Denies nausea. Voiding in the urinal- denies need to void currently. Single lumen picc capped and in place R arm. New #22 placed L wrist +
blood return. Blood glucose checked at 1600 and was 313- 6 units regular insulin given and Glycemic protocol started at 4 units. Call peters in reach. Plan of care reviewed with pt. Son at the bedside.
[2024-08-20 17:11] LABS: Glucose - Point of Care 279 mg/dl (70-99)
[2024-08-20] MEDS: MAALOX 30 ML PO (17:13)
[2024-08-20] MEDS: NOVOLOG FLEXPEN 2 UNITS SC (17:18)
--- NOTE | 2024-08-20 17:20 | PTCARENOTE ---
Pt ready to eat dinner. Novolog 2 units sq given per protocol for meal coverage. Column 1. Pt also had c/o heartburn prior to dinner and medicated at 1713 with Maalox with some relief.
[2024-08-20] MEDS: APRESOLINE 5 MG IV (17:43)
[2024-08-20] MEDS: FLUSH (NSS) 2 FLUSH IV (17:44)
--- NOTE | 2024-08-20 17:45 | PTCARENOTE ---
BP 187/93- Medicated with Apresoline 5 mg IV with repeat BP 150/101. Excellent appetite for dinner. No other changes. Sats 95% on 6l midflow
[2024-08-20 18:20] LABS: Glucose - Point of Care 304 mg/dl (70-99)
[2024-08-20 19:11] LABS: Glucose - Point of Care 295 mg/dl (70-99)
--- NOTE | 2024-08-20 20:00 | PTCARENOTE ---
rec`d pt at 1900. AAOx3 flat affect. glycemic protocol continued. SR on monitor. HR 70s-80s. +pulses. afebrile. +1 edema general edema. midflow 6L. POX 94-96%. shallow, crackles at the bases. pt uses urinal. insulin gtt continues. call peters in
reach, safe environment maintained.
[2024-08-20 20:12] LABS: Glucose - Point of Care 264 mg/dl (70-99)
[2024-08-20 21:12] LABS: Glucose - Point of Care 222 mg/dl (70-99)
[2024-08-20 22:05] LABS: Glucose - Point of Care 251 mg/dl (70-99)
[2024-08-20 23:13] LABS: Glucose - Point of Care 196 mg/dl (70-99)
[2024-08-21] VITALS (26 sets, daily range): BP systolic 139–174; BP diastolic 71–93; PULSE 2–82; BMI 22.5
[2024-08-21 00:28] LABS: Glucose - Point of Care 140 mg/dl (70-99)
--- NOTE | 2024-08-21 00:59 | PTCARENOTE ---
pt reassessed. no changes in pt assessment. call peters in reach.
[2024-08-21 01:32] LABS: Glucose - Point of Care 123 mg/dl (70-99)
[2024-08-21 02:13] LABS: Glucose - Point of Care 89 mg/dl (70-99)
[2024-08-21 03:28] LABS: Glucose - Point of Care 127 mg/dl (70-99)
[2024-08-21 05:06] LABS: % Basophils 0.1 % (0-2); % Immature Granulocytes 1.1 % (0-0.5); % Lymphocytes 4.2 % (20.5-51.1); % Monocytes 1.1 % (1.7-9.3); % Neutrophils 93.5 % (42.2-75.2); Absolute Immature Granulocytes 0.2 10^3/uL (0-0.05); Absolute Lymphocytes 0.6 10^3/uL (1.2-3.4); Absolute Monocytes 0.2 10^3/uL (0.1-0.6); Absolute Neutrophils 12.8 10^3/uL (1.4-6.5); Hematocrit 30.2 % (39.0-52.0); Hemoglobin 9.5 g/dL (13.0-18.0); Mean Corp Hgb Conc. 31.5 g/dL (33.0-37.0); Mean Corpuscular Hgb 26.5 pg (27.0-31.0); Mean Corpuscular Volume 84.1 fL (80.0-94.0); Mean Platelet Volume 9.5 fL (7.4-10.4); Nucleated Red Blood Cells % 0 % (-); Platelet Count 417 10^3/uL (130-400); Red Blood Cell Count 3.59 10^6/uL (4.70-6.10); Red Cell Dist. Width 16.1 % (11.5-14.5); White Blood Cell Count 13.7 10^3/uL (4.8-10.8)
[2024-08-21 05:16] LABS: Glucose - Point of Care 105 mg/dl (70-99)
[2024-08-21] MEDS: MAALOX 30 ML PO (05:25)
[2024-08-21] MEDS: MERREM 500 MG IV (05:26)
[2024-08-21] MEDS: STERILE WATER FOR INJECTION 10 ML IV (05:26)
[2024-08-21] MEDS: SOLU-MEDROL PF 40 MG IV ×4 (05:27→23:13)
[2024-08-21 05:36] LABS: Blood Urea Nitrogen 113 mg/dl (9-20); Calcium 8.6 mg/dl (8.4-10.2); Carbon Dioxide 27 mmol/L (22-30); Chloride 102 mmol/L (98-107); Estimated Creatinine Clearance 29 ml/min; Glucose 105 mg/dl (70-99); Sodium 141 mmol/L (135-145); eGFR 23.57
--- NOTE | 2024-08-21 06:00 | PTCARENOTE ---
had to straight cath pt. pt scanned for 800>. pt was able to void in urinal but only went 200. straight cathed for 550. pt tolerated. bipap also off. back to 6L mid flow
[2024-08-21 07:07] LABS: Glucose - Point of Care 113 mg/dl (70-99)
[2024-08-21] MEDS: DUONEB 3 ML INH ×4 (07:15→19:27)
[2024-08-21] MEDS: NOVOLOG FLEXPEN 8 UNITS SC ×3 (07:34→17:01)
[2024-08-21 07:40] LABS: Glucose - Point of Care 90 mg/dl (70-99)
[2024-08-21] MEDS: NEURONTIN 300 MG PO ×2 (07:44→19:56)
[2024-08-21] MEDS: WELLBUTRIN SR (12 hour sustained release) 150 MG PO ×2 (07:44→19:57)
[2024-08-21] MEDS: ATIVAN 1 MG PO ×3 (07:44→21:44)
[2024-08-21] MEDS: COREG 6.25 MG PO ×2 (07:45→19:56)
[2024-08-21] MEDS: OCEAN, SALINE MIST 2 SPRAYS NASAL (07:45)
[2024-08-21] MEDS: HEPARIN 5000 UNITS SC ×3 (07:45→23:14)
--- NOTE | 2024-08-21 07:46 | PN.DE.MGMTRT ---
Insulin Management
- -
08/21/2024: Diabetes Management F/U:
64 year old Male who presented tp the ED with increasing weakness and SOB due to Acute hypoxic Resp Failure. Pt was recently d/c'd after hospitalization for lower extremity cellulitis, COVID-19 pneumonia and HFpEF a couple days ago. PMH: HTN, HLD,
Severe Peripheral Neuropathy, CKD III, Lumbar DDD, Anxiety /Depression, MRSA bacteremia with left foot osteomyelitis (on daptomycin), HFpEF and T2DM.
Recent A1C was 5.7% on 07/10/24, had been 14.1% in 10/2023. Pt is not a good historian, states he takes 75/25 but doesn't take a standard dose, he reports taking his insulin on a SS, ~ 10-25 units in the morning and no other insulin or diabetes
medications. He has a monitor and checks his blood sugars 3x/day.
He is currently ordered Lantus 22 units @HS, NovoLog 7 units AC and high corrective insulin.
Pt awake, alert, sitting up in chair on O2, offers no complaints. Able to discuss diabetes management.
Remains on IV steroids contributing to hyperglycemia. 08/20 Initiated glycemic protocol due to ongoing Hyperglycemia despite efforts to adjust SQ insulin doses.
Glucose 89 to 127, requiring 0.6 to 10 units of insulin/ hr in addition to the 2-8 units of corrective insulin with meals
Will continue insulin infusion for now and reassess later today for readiness to transition off drip, preferably if steroids dose is reduced.
Discussed with nurse and ICU team.
Pt has a working glucose meter at home.
Diabetes History
- -
Type of Diabetes: 2 requiring insulin
Pre-Admission Diabetes Regimen
08/21/24
04:45
Creatinine 2.9 H
Insulin Pump Settings
IP Diabetes Regimen
08/20/24 08/20/24 08/20/24
12:12 15:52 17:00
Glucose
POC Glucose 378 H 313 H 279 H
08/20/24 08/20/24 08/20/24
18:08 19:01 20:00
Glucose
POC Glucose 304 H 295 H 264 H
08/20/24 08/20/24 08/20/24
21:01 21:54 23:02
Glucose
POC Glucose 222 H 251 H 196 H
08/21/24 08/21/24 08/21/24
00:16 01:20 02:02
Glucose
POC Glucose 140 H 123 H 89
08/21/24 08/21/24 08/21/24
03:16 04:45 05:04
Glucose 105 H
POC Glucose 127 H 105 H
08/21/24 08/21/24
06:56 07:28
Glucose
POC Glucose 113 H 90
Meal type: Dinner
Meal type: Lunch
Amount consumed: 100%
Amount consumed: 100%
Patient Education
[2024-08-21 08:13] LABS: Glucose - Point of Care 90 mg/dl (70-99)
--- NOTE | 2024-08-21 08:28 | W.PN.INTV ---
Today's Communication / Plan
Recommendations
Start high flow nasal cannula
Continue PO lasix; consider changing back to IV if O2 requirements remain high
Systemic steroids; trend CRP
Cards/renal following
PT/OT
Up OOB as tolerated
Continue insulin gtt with goal BG 140-180
Continue with ICU level care
Assessment
-
Patient is a 64-year-old male with previous history of hypertension, diabetes, chronic kidney disease presenting to ER with complaints of shortness of breath. He had recently been diagnosed with acute COVID illness 7 days prior. He had been
receiving IV antibiotic infusions for cellulitis of his left lower extremity. Was reportedly 84% on 5 L in ER, chest x-ray demonstrating bibasilar infiltrates with left greater than right. proBNP greater than 27,000, there is metabolic acidosis
with elevated creatinine. He is not currently on pressors, he is admitted to ICU for severe sepsis.
Impression:
Acute heart failure exacerbation, proBNP greater than 27,000
Severe sepsis, presumed co-morbid pneumonia
Interstitial lung disease with subpleural reticular opacities, traction bronchiectasis with bilateral GGO and consolidative opacities- suspected due to recent covid-19 pneumonia; DDx also includes OP
Recent COVID illness
Metabolic acidosis - resolved
Acute kidney injury on CKD (baseline Cr 1.7)
DM type II (HbA1C: 5.7 on 07/10/2024) c/b hyperglycemia now on insulin gtt
Leukocytosis
Abnormal chest x-ray
Conditions present [place]
History of MRSA cellulitis
CKD 4
Nephrotic range proteinuria
Positive proteinase 3 antibodies
Hypertension
Chronic anemia
Left foot osteomyelitis treated with daptomycin
Anxiety
Plan
Oxygen needs: currently on 15L/min from 6L/min yesterday; although he was on 10L/min on 08/19 via midflow nasal cannula, BIPAP nightly/PRN
Prior history of lung disease: none, but has had recent history of CHF and COVID illness
Supplemental O2 as indicated to maintain sats > 89%, wean as tolerated
Given his hypoxia, change nasal cannula to high flow nasal cannula
Admission CXR reviewed indicating L>R infiltrate
He had CT chest on AM of 08/18/2024 showing bilateral consolidative opacities with subpleural reticular opacities, GGO, and traction bronchiectasis (worse in the bases>apices) and small bilateral pleural effusions
- DDx for this includes organizing pneumonia vs [id number] ILD/pulmonary fibrosis in the setting of acute decompensated heart failure; bacterial pneumonia also contributing
- Continue PO lasix 40mg daily, trend sCr and UOP, aim for net negative fluid balance
- If O2 requirements continue to remain high with minimal improvement while on systemic steroids then would increase dose + frequency of Lasix
- CRP level was 200.9 on 08/18/2024 --> CRP remains elevated at 233 from 08/20 --> systemic steroids started on 08/19 with solumedrol 40mg IV q6hr --> wean as he clinically improves
- Maintain euglycemia with goal BG >100 and <180 while on high dose steroids; continue insulin gtt (started 08/20/2024 - hyperglycemia protocol)
- trend CRP level
- DuoNebs QID; start budesonide BID
- ID on board --> continue meropenem + dapto; defer duration of ABx to ID, but would favor at least 7-10 days total given the extensive changes seen on CT chest from 08/18/2024
Hemodynamically stable, not requiring pressors.
Cardiac history reviewed--recent history of HFpEF, discharged 08/08/24
proBNP from 08/14/2024 >06592
Prior ECHO reviewed indicating preserved function
Cards eval obtained
Monitor on telemetry
Replete K>4, Mg>2
IVY present superimposed on CKD, baseline creatinine approximately 1.6�1.8
Renal following--recurrent volume issues, unclear candidacy for HD
Follow urine output and trend sCr; renally dose all meds/Abx
On 08/18, bicarb supplementation stopped given his serum HCO3 level is now 25; blood gas on AM of 08/19/2024 shows acute respiratory alkalosis
Fever and increased WBC on presentation, suspect post COVID PNA
Started on empiric antibiotics, ID consult obtained -- on meropenem + daptomycin s/p Levaquin on 08/17/2024 and cefepime/vancomycin on 08/14/2024
Blood cultures show NGTD (collected 08/14/2024 + 08/17/2024); sputum culture from 08/16/2024 (poor sample) + repeated on 08/17/2024 that shows NGTD
Recent history of MRSA infection involving L-foot
Follow fever trend, WBC count
Lactate not elevated on admission (1.0 on 08/14/2024) - no need to continue trending
PT/OT, OOB encouraged
On 08/20, he was upgraded to ICU level of care due to need for insulin drip. Truck Service Technician/pulmonary service will continue to follow along.
Critical care statement: A total of 41 minutes of critical care time was provided for this patient today. This includes management of unstable vital signs, evaluation of the patient at bedside, reviewing the patient's pertinent medical records
including radiographs, microbiology, laboratory evaluations, and discussion with primary team, consultants, pharmacy, nutrition, physical therapy, case management, charge nurse, critical care nursing, and respiratory therapy.
Diagnostic Data
Chest X-Ray: 08/14/24- Findings suggesting moderate left upper and lower lobe and moderate right lower lobe pneumonia. Progressed.
CXR 08/21/2024: Improving congestive heart failure.
CT Chest w/o contrast 08/18/2024:
1. Bilateral airspace, groundglass, and reticular opacities as described, most likely related to pneumonia. As above, these findings are most pronounced in the lingula and the right middle lobe. Very small bilateral pleural effusions.
2. Air-fluid level within the esophagus compatible with dysmotility or reflux.
3. Mild coronary and aortic atherosclerosis.
Echo: 07/10/2024:
1. Mild concentric LVH with EF 60-65%
2. Mild RVE
3. LAE
4. No evidence of significant valvular disease
Reports and relevant images were personally reviewed.
Subjective Dataa
Subjective Data
Date of Service:
Date of Service: August 21, 2024
Chief Complaint: Truck Service Technician Follow Up
Subjective:
Pt seen and evaluated this AM. Upgraded to ICU yesterday evening due to severe hyperglycemia requiring insulin drip. Straight cathed overnight. Currently on 15L/min with sats 92% at rest, and drops to mid 80s with activity. Currently BP 153/83
and HR 85. He says he feels okay, denying a cough, CP, DUARTE, N/V/f/c. Had a pain in the side yesterday when he coughs but it is better today.
Review of Systems
General: Other (Negative unless mentioned above)
Objective Data
Data Reviewed
Vital Signs / I&O / Oxygen:
Vital Signs
Temp Pulse Resp BP Pulse Ox
97.4 F 87 15 141/83 91
08/21/24 08:08 08/21/24 09:00 08/21/24 09:00 08/21/24 09:00 08/21/24 09:00
Intake and Output
08/20/24 08/21/24 08/22/24
06:59 06:59 06:59
Intake Total 1380 / 1380 796.6 / 806.6 252.4 / 252.4
Output Total 1550 / 1550 2150 / 2150
Balance -170 / -170 -1353.4 / -1343.4 252.4 / 252.4
SaO2 91
Nasal Cannula flow liters per 15
minute
Physical Exam
General: Respiratory Distress (negative), Comfortable, Chills (negative), Sweats (negative) and Other (NAD)
HEENT: Normocephalic and Anicteric
Cardiovascular: S1-S2 and Peripheral Edema (+1 lower extremity edema (R >L))
Respiratory: Wheeze (negative), Crackles (Bibasilar (L >R)), Rhonchi (negative) and Non-Labored Respirations
GI: Soft, Non Distended, Non Tender and Normal Bowel Sounds
Neurology: AO x 3 and Tremors (negative)
Skin: Warm, Dry, Cyanosis (negative) and Jaundice (negative)
Labs/Micro/Reports
Lab Data
08/21/24 04:45
08/21/24 04:45
Microbiology
08/17/24 12:53 Blood/Venous Blood Culture - Preliminary
No Growth in 72 hours- Final report to follow
08/17/24 12:15 Blood/Venous Blood Culture - Preliminary
No Growth in 72 hours- Final report to follow
08/17/24 15:21 Sputum Respiratory Culture - Final
Usual Respiratory Jyoti
08/17/24 15:21 Sputum Gram Stain - Final
08/14/24 09:25 Blood/Venous Blood Culture - Final
No Growth - Final Report
08/14/24 08:59 Blood/Venous Blood Culture - Final
No Growth - Final Report
--- NOTE | 2024-08-21 09:23 | W.PN.HOSP.TC ---
Today's Communication/Plan
-
continue IV Lasix
continue regular insulin drip
Assessment / Plan
Assessment / Plan
Assessment:
Acute hypoxic respiratory failure
- wean O2 as able; currently on 8-15L mid-flow but sats 88-90%
Acute heart failure exacerbation, proBNP greater than 27,000
- continue IV Lasix per Nephrology/ requires intensive monitoring of I/OS, weights, lytes
- Cardiology signed off
Severe sepsis, presumed co-morbid pneumonia
Interstitial lung disease with subpleural reticular opacities, traction bronchiectasis with bilateral GGO and consolidative opacities- suspected due to recent covid-19 pneumonia; DDx also includes OP
Recent COVID illness treated with Molnupiravir/steroids
- CT chest: Bilateral airspace, ground-glass, and reticular opacities as described, most likely related to pneumonia. As above, these findings are most pronounced in the lingula and the right middle lobe. Very small bilateral pleural effusions.
Air-fluid level within the esophagus compatible with dysmotility or reflux. Mild coronary and aortic atherosclerosis.
- CRP elevated; IV steroids started 08/19/24
- continue Meropenem (day 8)
Metabolic acidosis - resolved
Acute kidney injury on CKD stage 4 (baseline Cr 1.7) - multifactorial from sepsis, PNA, CHF
- monitor Cr daily; follow nephrology recs
- cont to hold lisinopril and avoid nephrotoxins
History of MRSA cellulitis
IDDM
steroid induced hyperglycemia
- recent A1c 5.7%
- continue Basal/Bolus + SSI
- continue regular insulin drip/hyperglycemia protocol with uncontrolled sugars
Nephrotic range proteinuria
Positive proteinase 3 antibodies
essential Hypertension
- holding JOSE
- continue Coreg
Chronic anemia
Left foot osteomyelitis treating outpatient with daptomycin
- course to complete 08/25 per ID
Anxiety
- continue Ativan/Gabapentin
DVT ppx: SC Heparin
Code: Full
Anticipated Discharge: > 48 hours
Subjective/Interval History
-
Date of Service: August 21, 2024
on 15L NC this AM
reports mild SOB
Objective Data
-
Labs:
Laboratory Results
08/21/24
04:45
WBC 13.7 H
Hgb 9.5 L
Hct 30.2 L
Plt Count 417 H
Sodium 141
Potassium 4.0
Chloride 102
Carbon Dioxide 27
BUN 113 H*
Creatinine 2.9 H
Glucose 105 H
Calcium 8.6
Vital Signs:
Vital Signs
Temp Pulse Resp BP Pulse Ox
97.4 F 87 15 141/83 91
08/21/24 08:08 08/21/24 09:00 08/21/24 09:00 08/21/24 09:00 08/21/24 09:00
I&O
08/20/24 08/21/24 08/22/24
06:59 06:59 06:59
Intake Total 1380 / 1380 796.6 / 806.6 252.4 / 252.4
Output Total 1550 / 1550 2150 / 2150
Balance -170 / -170 -1353.4 / -1343.4 252.4 / 252.4
Physical Exam
-
General: No Apparent Distress and Respiratory Distress (mild)
HEENT: Normocephalic and Atraumatic
Respiratory: Non Labored Respirations; Negative Wheezes
Cardiac: Regular Rhythm and S1/S2
GI: Soft and Nontender
Genito-urinary: No Costovertebral Tender
Neuro: AO x 3
Hematologic / Lymphatic: No Lymphadenopathy
Psych: Calm
Data Reviewed
-
Total Time Spent with Patient (in minutes): 51
Labs: Labs Reviewed by me
--- NOTE | 2024-08-21 09:30 | PTCARENOTE ---
Rec'd care of patient at 0700. Patient alert and oriented. Standby assistance oob to chair at 0715. NSR on tele monitor. +1 pitting edema in RLE, +2 pitting edema in LLE. Crackles auscultated 1/2 up posteriorly on left lung. Right base coarse with
some scattered crackles. Pulse ox @ rest 92% on 15L MF. With any exertion, 85-86%. C/o some nasal dryness, saline provided. +Cough, productive. No BM or void. Straight cath'd at 0530. GP maintained. Call peters within reach.
--- NOTE | 2024-08-21 09:56 | W.PN.ID1 ---
Date of Service
Date of Service: August 21, 2024
Today's Communication
Discontinue meropenem. Continue daptomycin to complete course.
Assessment / Plan
Relapsed fever
- Improved
Pneumonia
S/P COVID
- s/p molnupiravir/decadron; antigen testing negative x2
CKD4 - nephrotic range proteinuria
CHF
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
- relapse of fevers; improved
- repeat covid Ag : negative
- blood cultures x2
- sputum culture with usual respiratory davie
- Continue daptomycin - dosing 10 mg/kg q48 hr - to finish 6-week course on 08/25/24
- Fevers have resolved. Current leukocytosis likely secondary to steroid effect. Currently day #8 of meropenem with clinical improvement.
- Discontinue further meropenem and observe.
- Continue to follow clinically
����������������������������������������������������������
Chief Complaint
-: Fever, Leukocytosis and Pneumonia
Subjective / Review of Systems
Patient seen and examined. Reports breathing is comfortable.
Review of Systems: No Fever and No Chills
Vital Signs / Physical Exam
Vital Signs
Vital Signs
Temp Pulse Resp BP Pulse Ox
97.4 F 87 15 141/83 91
08/21/24 08:08 08/21/24 09:00 08/21/24 09:00 08/21/24 09:00 08/21/24 09:00
Physical Exam
Constitutional: No Acute Distress, Comfortable, Chronically Ill and Non-toxic
Head: Normocephalic
Eyes: Sclera Anicteric
Cardiovascular: Regular Rate and S1/S2; Negative S3/S4
Pulmonary: Coarse, Non Labored and Other (Compared to yesterday's exam, decrease scattered crackles throughout.)
Gastrointestinal: Soft, Non Tender, Non Distended and Normal Bowel Sounds
Extremities: Negative Cyanosis or Erythema
Skin: Warm and Dry; Negative Rash or Jaundice
Neurological: Awake and Alert
Psychological: Calm
Lines: Other (midline)
Objective Data
Lab Data
Lab Results
08/21/24 04:45
08/21/24 04:45
PT 17.0 Sec (11.4-14.6) H 08/14/24 14:46
INR 1.33 08/14/24 14:46
APTT 40.0 Sec (23.4-35.0) H 08/14/24 14:46
Estimated Creat Clear 29 ml/min 08/21/24 04:45
Lactic Acid Cancelled 08/14/24 12:45
Total Bilirubin 0.4 mg/dl (0.2-1.3) 08/19/24 03:24
AST 18 U/L (17-59) 08/19/24 03:24
ALT 21 U/L (0-50) 08/19/24 03:24
Alkaline Phosphatase 133 U/L (38-126) H 08/19/24 03:24
C-Reactive Protein 233.30 mg/L (0.0-10.00) H 08/20/24 04:11
Most recent labs reviewed.
Micro Results:
08/17/24 12:53 Blood Culture - Preliminary
Blood/Venous No Growth in 72 hours- Final report to follow
08/17/24 12:15 Blood Culture - Preliminary
Blood/Venous No Growth in 72 hours- Final report to follow
08/17/24 15:21 Respiratory Culture - Final
Sputum Usual Respiratory Davie
Gram Stain - Final
08/14/24 09:25 Blood Culture - Final
Blood/Venous No Growth - Final Report
08/14/24 08:59 Blood Culture - Final
Blood/Venous No Growth - Final Report
08/16/24 03:56 Respiratory Culture - Final
Sputum Gram Stain - Final
08/15/24 03:17 MRSA Screen - Final
Nose No Methicillin Resistant Staphylococcus aureus isolated.
08/14/24 14:46 Influenza Types A & B (LAURA) - Final
Nasal Swab Negative for Influenza A & B, NAAT
Negative results must be combined with clinical observations
and patient history.
Nucleic Acid Amplification test (NAAT)performed on the
[employer] platform.
Imaging:
08/18/2024 CXR (2 view): Right upper extremity PICC line in place. Unchanged bibasilar consolidation, worse on the left. Increased diffuse interstitial opacity likely related to interstitial edema. Please see full dictation for additional detail.
Film personally viewed.
Care Review
Plan reviewed with: Physician
[2024-08-21 10:08] LABS: Glucose - Point of Care 176 mg/dl (70-99)
--- NOTE | 2024-08-21 10:13 | CM ---
theatre manager reviewed patient's chart and met with patient this am, patient is doing well, patient is currently down to 6 liters of oxygen, patient's plan remains to return to home with [facility] visiting nurses.
Plan; Home with [facility] visiting nurses when stable
Sowmya
[phone]
--- NOTE | 2024-08-21 10:19 | PTCARENOTE ---
RT in to place patient on HFNC. CXR ordered. Patient remains oob in chair since 0715. Vitals stable. Flomax initiated for retention.
--- NOTE | 2024-08-21 10:21 | W.PN.NEPH.PH ---
Today's Communication / Plan
-
Maintain oral Lasix
Follow BMP
Assessment/Plan
-
Impression:
Severe sepsis, presumed pneumonia
Acute hypoxic respiratory failure
Acute on chr DCHF
Resolved COVID
CKD4 baseline high 2 range
Metabolic acidosis
Anemia
Left Foot osteomyelitis
HTN
+PR3 Ab
Nephrotic range proteinuria of 5 g, biopsy-proven diabetic nephropathy
07/21/24: K biopsy nodular D nephropathy
IFTA mod to severe
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
Plan:
IVY-likely multifactorial, with sepsis, CHF,PNA
creatinine up to 2.9 and BUN up to 113,[place] was removed and now with high PVR
He remains on steroids which is likely contributing to his azotemia
Remains on high flow O2
Nonoliguric ~1500cc, but not accurate as [place] was removed
changed lasix to 40mg po daily this morning, weights up
continue to hold lisinopril and avoid nephrotoxins (hemodynamically stable)
resp issue mostly PNA than CHF, Abx per ID
dose meds renally
BP stable on BB
follow h/h-stable, had few doses of IV fe last admit, reportedly had heme +ve stool before
We have reviewed multiple occasions that he is at high risk of HD which he understands
hopefully escape HD this time too,but I am thinking likely not
d/w nursing
labs in am
-
-
Date of Service: August 21, 2024
CC / HPI / ROS
-
Chief Complaint:
IYV with CKD
History of Present Illness:
Creatinine and BUN rising to2.9 and 113
wt no change, on high flow O2
febrile last night
Remains on daptomycin and meropenem , Levaquin added on 12/1
anemic-hgb stable
WBC trending down
Review of Systems:
no cp
sob and cough continues
no n/v
Nonoliguric but high postvoid residuals following [place] removal yesterday
Weights unchanged
Labs
-
Labs:
WBC 13.7 10^3/uL (4.8-10.8) H 08/21/24 04:45
RBC 3.59 10^6/uL (4.70-6.10) L 08/21/24 04:45
Hgb 9.5 g/dL (13.0-18.0) L 08/21/24 04:45
Hct 30.2 % (39.0-52.0) L 08/21/24 04:45
Plt Count 417 10^3/uL (130-400) H 08/21/24 04:45
Sodium 141 mmol/L (135-145) 08/21/24 04:45
Potassium 4.0 mmol/L (3.5-5.1) 08/21/24 04:45
Chloride 102 mmol/L (98-107) 08/21/24 04:45
Carbon Dioxide 27 mmol/L (22-30) 08/21/24 04:45
BUN 113 mg/dl (9-20) H* 08/21/24 04:45
Creatinine 2.9 mg/dL (0.7-1.3) H 08/21/24 04:45
eGFR 23.57 08/21/24 04:45
Glucose 105 mg/dl (70-99) H 08/21/24 04:45
Calcium 8.6 mg/dl (8.4-10.2) 08/21/24 04:45
Phosphorus 6.5 mg/dl (2.5-4.5) H 08/20/24 04:11
Fhz-Y-Tzpqbdrujfp Pept > 67639 pg/ml 08/20/24 04:11
Albumin 2.5 g/dl (3.5-5.0) L 08/19/24 03:24
Physical Exam
-
Vital Signs:
Vital Signs
Temp Pulse Resp BP Pulse Ox
97.4 F 85 20 153/83 87
08/21/24 08:08 08/21/24 10:00 08/21/24 10:00 08/21/24 10:00 08/21/24 10:00
Cardiovascular:: Regular rate and rhythm
Respiratory:: Bilateral: Coarse and Bilateral: Rales
Lung Excursion:: Normal
Abdomen:: Nontender and Soft
Extremity Edema:: +1: Bilateral:
[place] Catheter: No
[2024-08-21] MEDS: FLOMAX 0.4 MG PO (11:07)
[2024-08-21] MEDS: LASIX 40 MG PO (11:07)
[2024-08-21] MEDS: NOVOLIN R INSULIN INFUSION 100 IV ×2 (11:07→19:05)
[2024-08-21 12:05] LABS: Glucose - Point of Care 182 mg/dl (70-99)
--- NOTE | 2024-08-21 13:07 | PTCARENOTE ---
Patient without void this shift. Last straight cath'd at 0530. Patient asked if he has the urge to void throughout shift; denies. PO Lasix administered at 1100. RN educated patient on risks of urinary retention. Patient refusing education, agitated
and cursing. Stating he is constantly being bothered and refusing to be straight cath'd again. RN requesting to scan bladder in order to assess how much is in bladder. Bladder scan 779 cc's. Urinal provided and patient encouraged to void.
[2024-08-21 13:09] LABS: Glucose - Point of Care 175 mg/dl (70-99)
--- NOTE | 2024-08-21 14:03 | PTCARENOTE ---
Patient voided 600 cc's.
[2024-08-21 15:12] LABS: Glucose - Point of Care 119 mg/dl (70-99)
--- NOTE | 2024-08-21 16:00 | PTCARENOTE ---
Patient assisted back to bed at 1500. Minor changes in assessment. Calmer and cooperative with care. Vitals stable. Remains on HFNC, weaned to 50L 60%. GP followed.
[2024-08-21 17:11] LABS: Glucose - Point of Care 91 mg/dl (70-99)
[2024-08-21 19:13] LABS: Glucose - Point of Care 109 mg/dl (70-99)
[2024-08-21] MEDS: PULMICORT 0.5 MG INH (19:27)
[2024-08-21 21:17] LABS: Glucose - Point of Care 115 mg/dl (70-99)
[2024-08-21 23:22] LABS: Glucose - Point of Care 109 mg/dl (70-99)
[2024-08-22] VITALS (25 sets, daily range): BP systolic 131–180; BP diastolic 68–93; PULSE 2–85; O2SAT 91–92; BMI 22.6
[2024-08-22 01:18] LABS: Glucose - Point of Care 106 mg/dl (70-99)
--- NOTE | 2024-08-22 01:43 | PTCARENOTE ---
received patient from day shift, no c/o pain or discomfort. no shortness of breath, lungs coarse wet sounding. patient remains on high flow with no issue. patient remains on insulin gtt, checking bg q 2 hrs.
patient has no desire to void at this time, last void on dayshift, if no void by am, will bladder scan.
[2024-08-22 03:13] LABS: Glucose - Point of Care 104 mg/dl (70-99)
[2024-08-22 04:23] LABS: Hematocrit 27.4 % (39.0-52.0); Hemoglobin 9.2 g/dL (13.0-18.0); Mean Corp Hgb Conc. 33.6 g/dL (33.0-37.0); Mean Corpuscular Hgb 27.5 pg (27.0-31.0); Mean Corpuscular Volume 81.8 fL (80.0-94.0); Mean Platelet Volume 10.1 fL (7.4-10.4); Platelet Count 371 10^3/uL (130-400); Red Blood Cell Count 3.35 10^6/uL (4.70-6.10); Red Cell Dist. Width 16.3 % (11.5-14.5); White Blood Cell Count 10.4 10^3/uL (4.8-10.8)
[2024-08-22 04:47] LABS: Blood Urea Nitrogen 120 mg/dl (9-20); Calcium 8.7 mg/dl (8.4-10.2); Carbon Dioxide 25 mmol/L (22-30); Chloride 105 mmol/L (98-107); Estimated Creatinine Clearance 34 ml/min; Glucose 82 mg/dl (70-99); Potassium 4.3 mmol/L (3.5-5.1); Sodium 142 mmol/L (135-145); eGFR 26.87
[2024-08-22 05:13] LABS: Glucose - Point of Care 83 mg/dl (70-99)
--- NOTE | 2024-08-22 05:49 | PTCARENOTE ---
patient requesting to be off bipap at 0545, does not want HHF, states its bothering him, he wants to get up and walk, agreed to place him on nasal canula to see how his resp status reacts. patient maintaining o2 of >93% for last 30 min
[2024-08-22] MEDS: SOLU-MEDROL PF 40 MG IV ×2 (05:50→16:25)
[2024-08-22] MEDS: PULMICORT 0.5 MG INH ×2 (07:13→19:54)
[2024-08-22] MEDS: DUONEB 3 ML INH ×4 (07:13→19:54)
[2024-08-22 07:14] LABS: Glucose - Point of Care 172 mg/dl (70-99)
--- NOTE | 2024-08-22 07:44 | PN.DE.MGMTRT ---
Insulin Management
- -
08/22/2024: Diabetes Management F/U:
64 year old Male who presented to the ED with increasing weakness and SOB due to Acute hypoxic Resp Failure. Pt was recently d/c'd after hospitalization for LE Cellulitis, COVID-19 pneumonia and HFpEF a couple days ago. PMH: HTN, HLD, Severe
Peripheral Neuropathy, CKD III, Lumbar DDD, Anxiety /Depression, MRSA bacteremia with left foot Osteomyelitis (on daptomycin), HFpEF and T2DM.
Recent A1C was 5.7% on 07/10/24, had been 14.1% in 10/2023. Pt is not a good historian, states he takes 75/25 but doesn't take a standard dose, he reports taking his insulin on a SS, ~ 10-25 units in the morning and no other insulin or diabetes
medications. He has a monitor and checks his blood sugars 3x/day.
He is currently ordered Lantus 22 units @HS, NovoLog 7 units AC and high corrective insulin.
Pt awake, alert, sitting up in chair on O2, offers no complaints. Able to discuss diabetes management.
08/19 Started on IV steroids contributing to hyperglycemia.
08/20 Initiated glycemic protocol due to ongoing Hyperglycemia despite efforts to adjust SQ insulin doses.
Remains on glycemic protocol, glucose 83 to 172, requiring 0.3 to 16 units of insulin/ hr in addition to the 8 units of corrective insulin with meals.
Plan to reduce steroid to Q8hrs. Will continue insulin infusion today and reassess later today for readiness to transition off drip, preferably if steroids dose is reduced. Discussed with nurse and ICU team.
Pt has a working glucose meter at home.
Diabetes History
- -
Type of Diabetes: 2 requiring insulin
Pre-Admission Diabetes Regimen
08/22/24
04:10
Creatinine 2.6 H
Insulin Pump Settings
IP Diabetes Regimen
08/21/24 08/21/24 08/21/24
08:00 09:54 11:51
Glucose
POC Glucose 90 176 H 182 H
08/21/24 08/21/24 08/21/24
12:58 15:00 16:59
Glucose
POC Glucose 175 H 119 H 91
08/21/24 08/21/24 08/21/24
19:02 21:06 23:10
Glucose
POC Glucose 109 H 115 H 109 H
08/22/24 08/22/24 08/22/24
01:07 03:02 04:10
Glucose 82
POC Glucose 106 H 104 H
08/22/24 08/22/24
05:02 07:04
Glucose
POC Glucose 83 172 H
Meal type: Breakfast
Amount consumed: 100%
Patient Education
[2024-08-22] MEDS: NOVOLOG FLEXPEN 8 UNITS SC ×3 (07:48→17:03)
[2024-08-22] MEDS: NOVOLIN R INSULIN INFUSION 100 IV ×2 (07:50→16:20)
[2024-08-22] MEDS: NEURONTIN 300 MG PO ×2 (07:56→20:19)
[2024-08-22] MEDS: LASIX 40 MG PO (07:56)
[2024-08-22] MEDS: COREG 6.25 MG PO ×2 (07:56→20:19)
[2024-08-22] MEDS: FLOMAX 0.4 MG PO (07:56)
[2024-08-22] MEDS: WELLBUTRIN SR (12 hour sustained release) 150 MG PO ×2 (07:56→20:19)
[2024-08-22] MEDS: HEPARIN 5000 UNITS SC ×2 (07:57→16:25)
[2024-08-22] MEDS: ATIVAN 1 MG PO ×3 (07:57→22:21)
--- NOTE | 2024-08-22 08:25 | W.PN.INTV ---
Today's Communication / Plan
Recommendations
Wean down solumedrol to 40mg IV q8hr
Continue PO lasix; consider changing back to IV if O2 requirements remain high
Trend CRP
Cards/renal following
PT/OT
Up OOB as tolerated
Continue insulin gtt with goal BG 140-180
Continue with ICU level care
Assessment
-
Patient is a 64-year-old male with previous history of hypertension, diabetes, chronic kidney disease presenting to ER with complaints of shortness of breath. He had recently been diagnosed with acute COVID illness 7 days prior. He had been
receiving IV antibiotic infusions for cellulitis of his left lower extremity. Was reportedly 84% on 5 L in ER, chest x-ray demonstrating bibasilar infiltrates with left greater than right. proBNP greater than 27,000, there is metabolic acidosis
with elevated creatinine. He is not currently on pressors, he is admitted to ICU for severe sepsis.
Impression:
Acute heart failure exacerbation, proBNP greater than 27,000
Severe sepsis, presumed co-morbid pneumonia
Interstitial lung disease with subpleural reticular opacities, traction bronchiectasis with bilateral GGO and consolidative opacities- suspected due to recent covid-19 pneumonia; DDx also includes OP
Recent COVID illness
Metabolic acidosis - resolved
Acute kidney injury on CKD (baseline Cr 1.7) - IVY improving
DM type II (HbA1C: 5.7 on 07/10/2024) c/b hyperglycemia now on insulin gtt (started 08/20)
Leukocytosis - now resolved
Abnormal chest x-ray
Conditions present GLOBAL PROFESSIONAL:
History of MRSA cellulitis
CKD 4
Nephrotic range proteinuria
Positive proteinase 3 antibodies
Hypertension
Chronic anemia
Left foot osteomyelitis treated with daptomycin
Anxiety
Plan
Oxygen needs: improved, now on 7L/min from high flow nasal cannula yesterday (08/21); prior to that was on 15L/min from 6L/min the day prior, although he was on 10L/min on 08/19 via midflow nasal cannula, BIPAP nightly/PRN
Prior history of lung disease: none, but has had recent history of CHF and COVID illness
Supplemental O2 as indicated to maintain sats > 89%, wean as tolerated
May need HFNC again if he desaturates while on midflow (change to high flow if O2 requirements >10L/min)
Admission CXR reviewed indicating L>R infiltrate
He had CT chest on AM of 08/18/2024 showing bilateral consolidative opacities with subpleural reticular opacities, GGO, and traction bronchiectasis (worse in the bases>apices) and small bilateral pleural effusions
- DDx for this includes organizing pneumonia vs [id number] ILD/pulmonary fibrosis in the setting of acute decompensated heart failure; bacterial pneumonia also contributing
- Continue PO lasix 40mg daily, trend sCr and UOP, aim for net negative fluid balance
- If O2 requirements continue to remain high with minimal improvement while on systemic steroids then would increase dose + frequency of Lasix and go back to IV
- CRP level was 200.9 on 08/18/2024 --> CRP remains elevated at 233 from 08/20 --> systemic steroids started on 08/19 with solumedrol 40mg IV q6hr --> wean as he clinically improves
- Start to wean down steroids today to 40mg IV q8hr
- Maintain euglycemia with goal BG >100 and <180 while on high dose steroids; continue insulin gtt (started 08/20/2024 - hyperglycemia protocol)
- trend CRP level
- DuoNebs QID and started budesonide BID on 08/21
- ID on board --> continue dapto and is s/p meropenem; defer duration of ABx to ID, but would favor at least 7-10 days total given the extensive changes seen on CT chest from 08/18/2024
Hemodynamically stable, not requiring pressors.
Cardiac history reviewed--recent history of HFpEF, discharged 08/08/24
proBNP from 08/14/2024 >22767
Prior ECHO reviewed indicating preserved function
Cards consulted - recs appreciated - they signed off on 08/20
Monitor on telemetry
Replete K>4, Mg>2
IVY present superimposed on CKD, baseline creatinine approximately 1.6�1.8
Renal following--recurrent volume issues, unclear candidacy for HD
Follow urine output and trend sCr; renally dose all meds/Abx
On 08/18, bicarb supplementation stopped given his serum HCO3 level is now >24; blood gas on AM of 08/19/2024 shows acute respiratory alkalosis
Fever and increased WBC on presentation, suspect post COVID PNA
Started on empiric antibiotics, ID consult obtained -- last dose of meropenem was 08/20, remains on daptomycin until 08/24 and is s/p Levaquin on 08/17/2024 and cefepime/vancomycin on 08/14/2024
Blood cultures show NGTD (collected 08/14/2024 + 08/17/2024); sputum culture from 08/16/2024 (poor sample) + repeated on 08/17/2024 that shows NGTD
Recent history of MRSA infection involving L-foot
Trend fever + WBC count
Lactate not elevated on admission (1.0 on 08/14/2024) - no need to continue trending
PT/OT, OOB encouraged
On 08/20, he was upgraded to ICU level of care due to need for insulin drip. Print Line Inspector/pulmonary service will continue to follow along.
Critical care statement: A total of 37 minutes of critical care time was provided for this patient today. This includes management of unstable vital signs, evaluation of the patient at bedside, reviewing the patient's pertinent medical records
including radiographs, microbiology, laboratory evaluations, and discussion with primary team, consultants, pharmacy, nutrition, physical therapy, case management, charge nurse, critical care nursing, and respiratory therapy.
Diagnostic Data
Chest X-Ray: 08/14/24- Findings suggesting moderate left upper and lower lobe and moderate right lower lobe pneumonia. Progressed.
CXR 08/21/2024: Improving congestive heart failure.
CT Chest w/o contrast 08/18/2024:
1. Bilateral airspace, groundglass, and reticular opacities as described, most likely related to pneumonia. As above, these findings are most pronounced in the lingula and the right middle lobe. Very small bilateral pleural effusions.
2. Air-fluid level within the esophagus compatible with dysmotility or reflux.
3. Mild coronary and aortic atherosclerosis.
Echo: 07/10/2024:
1. Mild concentric LVH with EF 60-65%
2. Mild RVE
3. LAE
4. No evidence of significant valvular disease
Reports and relevant images were personally reviewed.
Subjective Dataa
Subjective Data
Date of Service:
Date of Service: August 22, 2024
Chief Complaint: Print Line Inspector Follow Up
Subjective:
Patient seen and evaluated this AM. Currently on 7 L/min midflow nasal cannula saturating 94% with BP 151/76 and heart rate 85. Last night tolerated BiPAP on 12/5cmH2O bled with 8L/min. Remains on insulin gtt at 20 units/hr. Afebrile overnight.
He says that he feels better. No acute events reported from overnight.
Review of Systems
General: Other (Negative unless mentioned above)
Objective Data
Data Reviewed
Vital Signs / I&O / Oxygen:
Vital Signs
Temp Pulse Resp BP Pulse Ox
97.0 F 91 22 145/92 94
08/22/24 08:00 08/22/24 07:56 08/22/24 07:16 08/22/24 07:56 08/22/24 08:38
Intake and Output
08/21/24 08/22/24 08/23/24
06:59 06:59 06:59
Intake Total 796.6 / 806.6 436.0 / 436.0 100.3 / 100.3
Output Total 2150 / 2150 900 / 900
Balance -1353.4 / -1343.4 -464.0 / -464.0 100.3 / 100.3
SaO2 94
Nasal Cannula flow liters per 15
minute
Physical Exam
General: Respiratory Distress (negative), Comfortable, Chills (negative), Sweats (negative) and Other (NAD)
HEENT: Normocephalic and Anicteric
Cardiovascular: S1-S2, Rub (negative) and Peripheral Edema (+1 lower extremity edema (R >L))
Respiratory: Wheeze (negative), Crackles (Bibasilar), Rhonchi (negative) and Non-Labored Respirations
GI: Soft, Non Distended, Non Tender and Normal Bowel Sounds
Neurology: AO x 3 and Tremors (negative)
Skin: Warm, Dry, Cyanosis (negative) and Jaundice (negative)
Labs/Micro/Reports
Lab Data
08/22/24 04:10
08/22/24 04:10
Microbiology
08/17/24 12:53 Blood/Venous Blood Culture - Preliminary
No Growth in 4 days- Final report to follow
08/17/24 12:15 Blood/Venous Blood Culture - Preliminary
No Growth in 4 days- Final report to follow
08/17/24 15:21 Sputum Respiratory Culture - Final
Usual Respiratory Jyoti
08/17/24 15:21 Sputum Gram Stain - Final
08/14/24 09:25 Blood/Venous Blood Culture - Final
No Growth - Final Report
08/14/24 08:59 Blood/Venous Blood Culture - Final
No Growth - Final Report
--- NOTE | 2024-08-22 08:37 | PTCARENOTE ---
0700 assumed care. pt OOB chair. on 15L via midflow. Insulin infusing at 16 units /16 ML per Hyperglycemic Protocol colum 6 Last Blood sugar at 0700 172;
AAO x3 denies pain.
SR 82 BP via left upper arm 154/87 RR 13;
Lungs diminished 15L via mid-flow
Abdomen soft non-tender . tolerating 2000 ab diet. aware of Fluid restriction
Voiding in a urinal
[2024-08-22 09:22] LABS: Glucose - Point of Care 212 mg/dl (70-99)
--- NOTE | 2024-08-22 09:48 | W.PN.ID1 ---
Date of Service
Date of Service: August 22, 2024
Today's Communication
Continue antibiotics
Assessment / Plan
Relapsed fever
- Improved
Pneumonia
- s/p course of empiric meropenem
S/P COVID
- s/p molnupiravir/decadron; antigen testing negative x2
CKD4 - nephrotic range proteinuria
CHF
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
Recommendations:
- Continue daptomycin - dosing 10 mg/kg q48 hr - to finish 6-week course on 08/25/24
- Fevers have resolved. Current leukocytosis likely secondary to steroid effect.
- Continue to follow clinically
����������������������������������������������������������
Chief Complaint
-: Fever, Leukocytosis and Pneumonia
Subjective / Review of Systems
Review of Systems: No Fever and No Chills
Vital Signs / Physical Exam
Vital Signs
Vital Signs
Temp Pulse Resp BP Pulse Ox
97.0 F 89 22 139/76 90
08/22/24 08:00 08/22/24 09:00 08/22/24 09:00 08/22/24 09:00 08/22/24 09:00
Physical Exam
Constitutional: No Acute Distress, Comfortable, Chronically Ill and Non-toxic
Eyes: Sclera Anicteric
Cardiovascular: Regular Rate and S1/S2; Negative S3/S4
Pulmonary: Coarse and Non Labored
Gastrointestinal: Soft, Non Tender, Non Distended and Normal Bowel Sounds
Extremities: Negative Cyanosis or Erythema
Skin: Warm and Dry; Negative Rash or Jaundice
Neurological: Awake and Alert
Psychological: Calm
Lines: Other (midline)
Objective Data
Lab Data
Lab Results
08/22/24 04:10
08/22/24 04:10
PT 17.0 Sec (11.4-14.6) H 08/14/24 14:46
INR 1.33 08/14/24 14:46
APTT 40.0 Sec (23.4-35.0) H 08/14/24 14:46
Estimated Creat Clear 34 ml/min 08/22/24 04:10
Lactic Acid Cancelled 08/14/24 12:45
Total Bilirubin 0.4 mg/dl (0.2-1.3) 08/19/24 03:24
AST 18 U/L (17-59) 08/19/24 03:24
ALT 21 U/L (0-50) 08/19/24 03:24
Alkaline Phosphatase 133 U/L (38-126) H 08/19/24 03:24
C-Reactive Protein 233.30 mg/L (0.0-10.00) H 08/20/24 04:11
Most recent labs reviewed.
Micro Results:
08/17/24 12:53 Blood Culture - Preliminary
Blood/Venous No Growth in 4 days- Final report to follow
08/17/24 12:15 Blood Culture - Preliminary
Blood/Venous No Growth in 4 days- Final report to follow
08/17/24 15:21 Respiratory Culture - Final
Sputum Usual Respiratory Jyoti
Gram Stain - Final
08/14/24 09:25 Blood Culture - Final
Blood/Venous No Growth - Final Report
08/14/24 08:59 Blood Culture - Final
Blood/Venous No Growth - Final Report
08/16/24 03:56 Respiratory Culture - Final
Sputum Gram Stain - Final
08/15/24 03:17 MRSA Screen - Final
Nose No Methicillin Resistant Staphylococcus aureus isolated.
08/14/24 14:46 Influenza Types A & B (LAURA) - Final
Nasal Swab Negative for Influenza A & B, NAAT
Negative results must be combined with clinical observations
and patient history.
Nucleic Acid Amplification test (NAAT)performed on the
[employer] platform.
Imaging:
08/18/2024 CXR (2 view): Right upper extremity PICC line in place. Unchanged bibasilar consolidation, worse on the left. Increased diffuse interstitial opacity likely related to interstitial edema. Please see full dictation for additional detail.
Film personally viewed.
Care Review
Plan reviewed with: Nurse
[2024-08-22 11:28] LABS: Glucose - Point of Care 114 mg/dl (70-99)
[2024-08-22] MEDS: CUBICIN 16 MG IV (11:28)
--- NOTE | 2024-08-22 11:37 | W.PN.NEPH.PH ---
Today's Communication / Plan
-
follow labs
cont lasix
Assessment/Plan
-
Impression:
Severe sepsis, presumed pneumonia
Acute hypoxic respiratory failure
Acute on chr DCHF
Resolved COVID
CKD4 baseline high 2 range
Metabolic acidosis
Anemia
Left Foot osteomyelitis
HTN
+PR3 Ab
Nephrotic range proteinuria of 5 g, biopsy-proven diabetic nephropathy
07/21/24: K biopsy nodular D nephropathy
IFTA mod to severe
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
Plan:
IVY-likely multifactorial, with sepsis, CHF,PNA
cr down to 2.6 but worsening azotemia likely steroid -weaning started
O2 requirement is improving on 7lit now
non oliguric off manzanares-0monitor bladder scan
no emergent indication of HD
cont po lasix, monitor wts-increasing slightly
continue to hold lisinopril and avoid nephrotoxins (hemodynamically stable)
resp issue mostly PNA than CHF, Abx per ID
dose meds renally
BP increasing trend -likely increase BB dose later today
follow h/h-stable, had few doses of IV fe last admit, reportedly had heme +ve stool before
We have reviewed multiple occasions that he is at high risk of HD which he understands
d/w nursing
labs in am
-
-
Date of Service: August 22, 2024
CC / HPI / ROS
-
Chief Complaint:
IVY with CKD
History of Present Illness:
Creatinine and BUN down to 2.6 and BUN upto 120
wt slightly up, on 7lit of O2, off high flow
afebrile
Remains on daptomycin
anemic-hgb stable
WBC trending down
Review of Systems:
no cp
sob and cough improving
no n/v
manzanares out need to f/u PVR
Labs
-
Labs:
WBC 10.4 10^3/uL (4.8-10.8) 08/22/24 04:10
RBC 3.35 10^6/uL (4.70-6.10) L 08/22/24 04:10
Hgb 9.2 g/dL (13.0-18.0) L 08/22/24 04:10
Hct 27.4 % (39.0-52.0) L 08/22/24 04:10
Plt Count 371 10^3/uL (130-400) 08/22/24 04:10
Sodium 142 mmol/L (135-145) 08/22/24 04:10
Potassium 4.3 mmol/L (3.5-5.1) 08/22/24 04:10
Chloride 105 mmol/L (98-107) 08/22/24 04:10
Carbon Dioxide 25 mmol/L (22-30) 08/22/24 04:10
BUN 120 mg/dl (9-20) H* 08/22/24 04:10
Creatinine 2.6 mg/dL (0.7-1.3) H 08/22/24 04:10
eGFR 26.87 08/22/24 04:10
Glucose 82 mg/dl (70-99) 08/22/24 04:10
Calcium 8.7 mg/dl (8.4-10.2) 08/22/24 04:10
Phosphorus 6.5 mg/dl (2.5-4.5) H 08/20/24 04:11
Xmy-N-Kwbvwfvafdh Pept > 79686 pg/ml 08/20/24 04:11
Albumin 2.5 g/dl (3.5-5.0) L 08/19/24 03:24
Physical Exam
-
Vital Signs:
Vital Signs
Temp Pulse Resp BP Pulse Ox
97.7 F 82 15 151/76 92
08/22/24 11:34 08/22/24 11:20 08/22/24 11:00 08/22/24 10:00 08/22/24 11:20
Cardiovascular:: Regular rate and rhythm
Respiratory:: Bilateral: Coarse
Lung Excursion:: Abnormal
Abdomen:: Nontender and Soft
Extremity Edema:: +1: Bilateral:
Manzanares Catheter: No
[2024-08-22 12:09] LABS: Glucose - Point of Care 84 mg/dl (70-99)
--- NOTE | 2024-08-22 12:29 | PTCARENOTE ---
OOB chair on 3L via nasal canula POX 92% Insuling qtt per hyperglycemia protocol
[2024-08-22 13:25] LABS: Glucose - Point of Care 101 mg/dl (70-99)
--- NOTE | 2024-08-22 13:55 | W.PN.HOSP.TC ---
Today's Communication/Plan
-
wean O2
continue IV steroids; wean
Assessment / Plan
Assessment / Plan
Assessment:
Acute hypoxic respiratory failure
- wean O2 as able; currently on 3L NC with sats >92%
Acute heart failure exacerbation, proBNP greater than 27,000
- s/p IV Lasix course; now on oral Lasix
- Cardiology signed off
Severe sepsis, presumed co-morbid pneumonia
Interstitial lung disease with subpleural reticular opacities, traction bronchiectasis with bilateral GGO and consolidative opacities- suspected due to recent covid-19 pneumonia; DDx also includes OP
Recent COVID illness treated with Molnupiravir/steroids
- CT chest: Bilateral airspace, ground-glass, and reticular opacities as described, most likely related to pneumonia. As above, these findings are most pronounced in the lingula and the right middle lobe. Very small bilateral pleural effusions.
Air-fluid level within the esophagus compatible with dysmotility or reflux. Mild coronary and aortic atherosclerosis.
- CRP elevated; continue IV steroids started 08/19/24
- completed Meropenem course per ID.
Metabolic acidosis - resolved
Acute kidney injury on CKD stage 4 (baseline Cr 1.7) - multifactorial from sepsis, PNA, CHF
- monitor Cr daily; follow nephrology recs
- cont to hold lisinopril and avoid nephrotoxins
History of MRSA cellulitis
IDDM
steroid induced hyperglycemia
- recent A1c 5.7%
- continue Basal/Bolus + SSI
- continue regular insulin drip/hyperglycemia protocol with uncontrolled sugars; hopefully wean off in next 24 hours.
Nephrotic range proteinuria
Positive proteinase 3 antibodies
essential Hypertension
- holding JOSE
- continue Coreg
Chronic anemia
Left foot osteomyelitis treating outpatient with daptomycin
- course to complete 08/25 per ID
Anxiety
- continue Ativan/Gabapentin
DVT ppx: SC Heparin
Code: Full
Anticipated Discharge: > 48 hours
Subjective/Interval History
-
Date of Service: August 22, 2024
denies any new complaints
now on 3L NC and feels comfortable
Objective Data
-
Labs:
Laboratory Results
08/22/24
04:10
WBC 10.4
Hgb 9.2 L
Hct 27.4 L
Plt Count 371
Sodium 142
Potassium 4.3
Chloride 105
Carbon Dioxide 25
BUN 120 H*
Creatinine 2.6 H
Glucose 82
Calcium 8.7
Vital Signs:
Vital Signs
Temp Pulse Resp BP Pulse Ox
97.7 F 82 15 151/76 92
08/22/24 11:34 08/22/24 11:20 08/22/24 11:00 08/22/24 10:00 08/22/24 11:20
I&O
08/21/24 08/22/24 08/23/24
06:59 06:59 06:59
Intake Total 796.6 / 806.6 436.0 / 436.0 324.6 / 324.6
Output Total 2150 / 2150 900 / 900 800 / 800
Balance -1353.4 / -1343.4 -464.0 / -464.0 -475.4 / -475.4
Physical Exam
-
General: No Apparent Distress
HEENT: Normocephalic and Atraumatic
Respiratory: Crackles (decreased from yesterday) and Decreased Breath Sounds; Negative Wheezes
Cardiac: Regular Rhythm and S1/S2
GI: Soft
Genito-urinary: No Costovertebral Tender
Neuro: AO x 3
Psych: Calm
Data Reviewed
-
Total Time Spent with Patient (in minutes): 44
Labs: Labs Reviewed by me
--- NOTE | 2024-08-22 15:03 | CM ---
CM following re: discharge planning.
Reviewed pt's chart, met with pt. Pt requires 3L NC with saturation 95%, Bi-pap at , continue supportive care,
Pt continues to express his desire to return back home with [facility]. Pt reports he lives with brother, his family and a son, has supportive ex- and pt stated they will help. Pt stated his brother is a main supporter.
Prior to admission to , pt had [facility] and was receiving outpatient infusion therapy at .
Per ID, pt will finish 6-week course of daptomycin on 08/25/24
A referral to [facility] made.
Please fax discharge instructions to [facility] at [phone]
D/C plan: per pt's request, home with [facility] and family support.
CM will follow with discharge plan updates as hospitalization progresses
[2024-08-22 15:35] LABS: Glucose - Point of Care 124 mg/dl (70-99)
[2024-08-22 17:07] LABS: Glucose - Point of Care 87 mg/dl (70-99)
[2024-08-22 19:07] LABS: Glucose - Point of Care 188 mg/dl (70-99)
[2024-08-22 20:31] LABS: Glucose - Point of Care 149 mg/dl (70-99)
[2024-08-22 21:30] LABS: Glucose - Point of Care 140 mg/dl (70-99)
[2024-08-22 22:18] LABS: Glucose - Point of Care 142 mg/dl (70-99)
--- NOTE | 2024-08-22 22:43 | PTCARENOTE ---
Handoff report received from off going RN. Patient received on insulin gtt at 20 units/hr. Patient assessed. AAO x3 and able to make his needs known. Denies pain and sob. Pt's SpO2 decreased to 84. Oxygen increased to 5 liters midflow nc from 3
liters. SpO2 increased to 90%. Midflow nc now at 6 liters and pt's SaO2 is at 95%. Plan of care for the shift reviewed with the patient. sinus rhythm on the monitor. All pulses are palpable. Breath sounds are clear. Hypoactive BS. Pt voids via the
urinal. Scheduled medications administered.
[2024-08-22 23:18] LABS: Glucose - Point of Care 89 mg/dl (70-99)
[2024-08-23] VITALS (13 sets, daily range): BP systolic 144–178; BP diastolic 74–95; PULSE 2–85; BMI 23.3; BMI 22.5
[2024-08-23] MEDS: SOLU-MEDROL PF 40 MG IV ×3 (00:38→15:56)
[2024-08-23] MEDS: HEPARIN 5000 UNITS SC ×3 (00:38→15:56)
[2024-08-23 00:50] LABS: Glucose - Point of Care 153 mg/dl (70-99)
--- NOTE | 2024-08-23 01:57 | PTCARENOTE ---
Patient reassessed. No changes. Remains on midflow nasal cannula at 6 L.
[2024-08-23 02:14] LABS: Glucose - Point of Care 96 mg/dl (70-99)
[2024-08-23 04:13] LABS: Glucose - Point of Care 74 mg/dl (70-99)
[2024-08-23 04:32] LABS: Hematocrit 26.7 % (39.0-52.0); Hemoglobin 8.7 g/dL (13.0-18.0); Mean Corp Hgb Conc. 32.6 g/dL (33.0-37.0); Mean Corpuscular Hgb 26.6 pg (27.0-31.0); Mean Corpuscular Volume 81.7 fL (80.0-94.0); Mean Platelet Volume 9.6 fL (7.4-10.4); Platelet Count 381 10^3/uL (130-400); Red Blood Cell Count 3.27 10^6/uL (4.70-6.10); Red Cell Dist. Width 16.4 % (11.5-14.5); White Blood Cell Count 9.5 10^3/uL (4.8-10.8)
--- NOTE | 2024-08-23 04:59 | PTCARENOTE ---
[id number]: Patient reassessed. Arouses to verbal commands. Encouraged the patient to void. Pt stood at the bedside for ~5 minutes without much success. the pt void 30 mls via urinal. Patient bladder scanned for >953. Explained straight
catheterization procedure to the patient. P{t verbalized understanding stating that he's had it done prior. Patint straight cath for 1200 cc and rescanned for 105 ml post straight cath. Patient cleansed with CHG wipes, and full linen change
completed. Pt remains on BiPaP. All needs are met at this time.
[2024-08-23 05:10] LABS: Blood Urea Nitrogen 131 mg/dl (9-20); Calcium 8.6 mg/dl (8.4-10.2); Carbon Dioxide 24 mmol/L (22-30); Chloride 107 mmol/L (98-107); Estimated Creatinine Clearance 36 ml/min; Glucose 70 mg/dl (70-99); Magnesium 2.9 mg/dl (1.6-2.3); Phosphorus 5.2 mg/dl (2.5-4.5); Potassium 4.9 mmol/L (3.5-5.1); Sodium 140 mmol/L (135-145); eGFR 28.16
[2024-08-23] MEDS: NOVOLIN R INSULIN INFUSION 100 IV ×2 (05:27→21:43)
[2024-08-23 05:39] LABS: Glucose - Point of Care 143 mg/dl (70-99)
[2024-08-23 06:23] LABS: Glucose - Point of Care 138 mg/dl (70-99)
[2024-08-23 07:25] LABS: Glucose - Point of Care 159 mg/dl (70-99)
[2024-08-23] MEDS: MIRALAX 17 GRAMS PO (07:28)
[2024-08-23] MEDS: WELLBUTRIN SR (12 hour sustained release) 150 MG PO ×2 (07:30→20:42)
[2024-08-23] MEDS: NEURONTIN 300 MG PO ×2 (07:30→20:42)
[2024-08-23] MEDS: LASIX 40 MG PO (07:30)
[2024-08-23] MEDS: ATIVAN 1 MG PO ×3 (07:30→22:10)
[2024-08-23] MEDS: COREG 6.25 MG PO (07:30)
[2024-08-23] MEDS: FLOMAX 0.4 MG PO (07:34)
[2024-08-23] MEDS: NOVOLOG FLEXPEN 8 UNITS SC ×2 (07:35→11:42)
--- NOTE | 2024-08-23 07:49 | PTCARENOTE ---
0700 assumed . patient in a chair. BP via left upper arm 160/78 SR 90; RR 15; POX 94%/6L
AAO x3; +2 edema b/l LE pitting pedal pulses present
S1/S2 SR telemetry
lungs clear diminished at bases 6L of o2 will attempt to wean o2
Abdomen soft non-tender; BS present Constipation . Miralex adm appetite good No N/V
Difficulties voiding. on Flomax will continue with Bladder scan
ambulates with walker supervision
RT PICC line SL dressing intact. RT FA peripheral line : flushed; Insulin at 156 /10 units per hyperglycemic protocol. 8 units per sliding scale
[2024-08-23] MEDS: DUONEB 3 ML INH ×3 (08:09→19:35)
[2024-08-23] MEDS: PULMICORT 0.5 MG INH ×2 (08:09→19:35)
--- NOTE | 2024-08-23 08:19 | W.PN.ID1 ---
Date of Service
Date of Service: August 23, 2024
Today's Communication
Continue current course of daptomycin.
Assessment / Plan
Relapsed fever
- Improved
Pneumonia
- s/p course of empiric meropenem
S/P COVID
- s/p molnupiravir/decadron; antigen testing negative x2
CKD4 - nephrotic range proteinuria
CHF
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
Recommendations:
- Continue daptomycin - dosing 10 mg/kg q48 hr - to finish 6-week course on 08/25/24
- Fevers have resolved. Current leukocytosis likely secondary to steroid effect.
- Continue to follow clinically
����������������������������������������������������������
Chief Complaint
-: Fever, Leukocytosis and Pneumonia
Subjective / Review of Systems
Review of Systems: No Fever and No Chills
Vital Signs / Physical Exam
Vital Signs
Vital Signs
Temp Pulse Resp BP Pulse Ox
97.7 F 87 16 160/78 94
08/23/24 07:30 08/23/24 08:12 08/23/24 08:12 08/23/24 07:30 08/23/24 08:12
Physical Exam
Constitutional: No Acute Distress, Comfortable, Chronically Ill and Non-toxic
Eyes: Sclera Anicteric
Cardiovascular: Regular Rate and S1/S2; Negative S3/S4
Pulmonary: Non Labored
Gastrointestinal: Soft, Non Tender, Non Distended and Normal Bowel Sounds
Extremities: Negative Cyanosis or Erythema
Skin: Warm and Dry; Negative Rash or Jaundice
Neurological: Awake and Alert
Psychological: Calm
Lines: Other (midline)
Objective Data
Lab Data
Lab Results
08/23/24 04:11
08/23/24 04:11
PT 17.0 Sec (11.4-14.6) H 08/14/24 14:46
INR 1.33 08/14/24 14:46
APTT 40.0 Sec (23.4-35.0) H 08/14/24 14:46
Estimated Creat Clear 36 ml/min 08/23/24 04:11
Lactic Acid Cancelled 08/14/24 12:45
Total Bilirubin 0.4 mg/dl (0.2-1.3) 08/19/24 03:24
AST 18 U/L (17-59) 08/19/24 03:24
ALT 21 U/L (0-50) 08/19/24 03:24
Alkaline Phosphatase 133 U/L (38-126) H 08/19/24 03:24
C-Reactive Protein 43.20 mg/L (0.0-10.00) H 08/23/24 04:11
Most recent labs reviewed.
Micro Results:
08/17/24 12:53 Blood Culture - Final
Blood/Venous No Growth - Final Report
08/17/24 12:15 Blood Culture - Final
Blood/Venous No Growth - Final Report
08/17/24 15:21 Respiratory Culture - Final
Sputum Usual Respiratory Jyoti
Gram Stain - Final
08/14/24 09:25 Blood Culture - Final
Blood/Venous No Growth - Final Report
08/14/24 08:59 Blood Culture - Final
Blood/Venous No Growth - Final Report
08/16/24 03:56 Respiratory Culture - Final
Sputum Gram Stain - Final
08/15/24 03:17 MRSA Screen - Final
Nose No Methicillin Resistant Staphylococcus aureus isolated.
08/14/24 14:46 Influenza Types A & B (LAURA) - Final
Nasal Swab Negative for Influenza A & B, NAAT
Negative results must be combined with clinical observations
and patient history.
Nucleic Acid Amplification test (NAAT)performed on the
[employer] platform.
Imaging:
08/18/2024 CXR (2 view): Right upper extremity PICC line in place. Unchanged bibasilar consolidation, worse on the left. Increased diffuse interstitial opacity likely related to interstitial edema. Please see full dictation for additional detail.
Film personally viewed.
--- NOTE | 2024-08-23 08:31 | W.PN.INTV ---
Today's Communication / Plan
Recommendations
Wean down solumedrol to 40mg IV q12hr
Continue PO lasix; consider changing back to IV if O2 requirements remain high
Trend CRP
Cards/renal following
PT/OT
Up OOB as tolerated
Continue insulin gtt with goal BG 140-180 - hopefully can be weaned off the insulin drip by tomorrow (08/24)
Continue with ICU level care
Assessment
-
Patient is a 64-year-old male with previous history of hypertension, diabetes, chronic kidney disease presenting to ER with complaints of shortness of breath. He had recently been diagnosed with acute COVID illness 7 days prior. He had been
receiving IV antibiotic infusions for cellulitis of his left lower extremity. Was reportedly 84% on 5 L in ER, chest x-ray demonstrating bibasilar infiltrates with left greater than right. proBNP greater than 27,000, there is metabolic acidosis
with elevated creatinine. He is not currently on pressors, he is admitted to ICU for severe sepsis.
Impression:
Acute heart failure exacerbation, proBNP greater than 27,000
Severe sepsis, presumed co-morbid pneumonia
Interstitial lung disease with subpleural reticular opacities, traction bronchiectasis with bilateral GGO and consolidative opacities- suspected due to recent covid-19 pneumonia; DDx also includes OP
Recent COVID illness
Metabolic acidosis - resolved
Acute kidney injury on CKD (baseline Cr 1.7) - IVY stable
Risingn BUN - likely due to steroids in the setting of IVY
DM type II (HbA1C: 5.7 on 07/10/2024) c/b hyperglycemia now on insulin gtt (started 08/20)
Leukocytosis - now resolved
Abnormal chest x-ray
Left foot osteomyelitis due to MRSA
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
History of MRSA cellulitis
CKD 4
Nephrotic range proteinuria
Positive proteinase 3 antibodies
Hypertension
Chronic anemia
Left foot osteomyelitis treated with daptomycin
Anxiety
Plan
Oxygen needs: improved, now on 3L/min from 7L/min (on 08/22) from high flow nasal cannula on 08/21; prior to that was on 15L/min from 6L/min the day prior, although he was on 10L/min on 08/19 via midflow nasal cannula, BIPAP nightly/PRN
Prior history of lung disease: none, but has had recent history of CHF and COVID illness
Supplemental O2 as indicated to maintain sats > 89%, wean as tolerated
May need HFNC again if he desaturates again if supplemental O2 rates are >10L/min
Admission CXR reviewed indicating L>R infiltrate
He had CT chest on AM of 08/18/2024 showing bilateral consolidative opacities with subpleural reticular opacities, GGO, and traction bronchiectasis (worse in the bases>apices) and small bilateral pleural effusions
- DDx for this includes organizing pneumonia vs [id number] ILD/pulmonary fibrosis in the setting of acute decompensated heart failure; bacterial pneumonia also contributing
- Continue PO lasix 40mg daily, trend sCr and UOP, aim for net negative fluid balance
- If O2 requirements continue to remain high with minimal improvement while on systemic steroids then would increase dose + frequency of Lasix and go back to IV
- CRP level was 200.9 on 08/18/2024 --> CRP remains elevated at 233 from 08/20 --> systemic steroids started on 08/19 with solumedrol 40mg IV q6hr --> wean as he clinically improves
- Continue to wean down steroids today to 40mg IV q12hr
- Maintain euglycemia with goal BG >100 and <180 while on high dose steroids; continue insulin gtt (started 08/20/2024 - hyperglycemia protocol)
- trend CRP level
- DuoNebs QID and started budesonide BID on 08/21
- ID on board --> continue dapto for left foot osteomyelitis; he is s/p meropenem; defer duration of ABx to ID, but would favor at least 7-10 days total given the extensive changes seen on CT chest from 08/18/2024
Hemodynamically stable, not requiring pressors.
Cardiac history reviewed--recent history of HFpEF, discharged 08/08/24
proBNP from 08/14/2024 >[id number]
Prior ECHO reviewed indicating preserved function
Cards consulted - recs appreciated - they signed off on 08/20
Monitor on telemetry
Replete K>4, Mg>2
IVY present superimposed on CKD, baseline creatinine approximately 1.6�1.8
Renal following--recurrent volume issues, unclear candidacy for HD
Follow urine output and trend sCr; renally dose all meds/Abx
On 08/18, bicarb supplementation stopped given his serum HCO3 level is now >24; blood gas on AM of 08/19/2024 shows acute respiratory alkalosis
Fever and increased WBC on presentation, suspect post COVID PNA
Started on empiric antibiotics, ID consult obtained -- last dose of meropenem was 08/20, remains on daptomycin until 08/24 and is s/p Levaquin on 08/17/2024 and cefepime/vancomycin on 08/14/2024
Blood cultures show NGTD (collected 08/14/2024 + 08/17/2024); sputum culture from 08/16/2024 (poor sample) + repeated on 08/17/2024 that shows NGTD
Recent history of MRSA infection involving L-foot
Trend fever + WBC count
Lactate not elevated on admission (1.0 on 08/14/2024) - no need to continue trending
PT/OT, OOB encouraged
On 08/20, he was upgraded to ICU level of care due to need for insulin drip. Hopefully we can get him off the insulin drip by tomorrow (08/24). Clerical Adviser/pulmonary service will continue to follow along.
Critical care statement: A total of 41 minutes of critical care time was provided for this patient today. This includes management of unstable vital signs, evaluation of the patient at bedside, reviewing the patient's pertinent medical records
including radiographs, microbiology, laboratory evaluations, and discussion with primary team, consultants, pharmacy, nutrition, physical therapy, case management, charge nurse, critical care nursing, and respiratory therapy.
Diagnostic Data
Chest X-Ray: 08/14/24- Findings suggesting moderate left upper and lower lobe and moderate right lower lobe pneumonia. Progressed.
CXR 08/21/2024: Improving congestive heart failure.
CT Chest w/o contrast 08/18/2024:
1. Bilateral airspace, groundglass, and reticular opacities as described, most likely related to pneumonia. As above, these findings are most pronounced in the lingula and the right middle lobe. Very small bilateral pleural effusions.
2. Air-fluid level within the esophagus compatible with dysmotility or reflux.
3. Mild coronary and aortic atherosclerosis.
Echo: 07/10/2024:
1. Mild concentric LVH with EF 60-65%
2. Mild RVE
3. LAE
4. No evidence of significant valvular disease
Reports and relevant images were personally reviewed.
Subjective Dataa
Subjective Data
Date of Service:
Date of Service: August 23, 2024
Chief Complaint: Clerical Adviser Follow Up
Subjective:
Patient was seen and evaluated today at bedside. Currently on insulin drip at 1.9 units/hr. heart rate 73 and saturating 96% on 3 L/min. He is starting to feel better with his breathing, denies a bothersome cough at this time. Also denies chest
pain, DUARTE, abdominal pain, nausea, fevers or chills. Creatinine is stable however BUN is continuing to rise (131 today). He is not currently confused.
Review of Systems
General: Other (Negative unless mentioned above)
Objective Data
Data Reviewed
Vital Signs / I&O / Oxygen:
Vital Signs
Temp Pulse Resp BP Pulse Ox
97.7 F 87 16 160/78 95
08/23/24 07:30 08/23/24 08:12 08/23/24 08:12 08/23/24 07:30 08/23/24 08:49
Intake and Output
08/22/24 08/23/24 08/24/24
06:59 06:59 06:59
Intake Total 436.0 / 436.0 670.8 / 680.8 /
Output Total 900 / 900 2700 / 2700
Balance -464.0 / -464.0 -2029.2 / -2019.2 272 / 272
SaO2 95
Nasal Cannula flow liters per 3
minute
Physical Exam
General: Respiratory Distress (negative), Comfortable, Chills (negative), Sweats (negative) and Other (NAD)
HEENT: Normocephalic and Anicteric
Cardiovascular: S1-S2, Rub (negative) and Peripheral Edema (+2 lower extremity edema (R >L))
Respiratory: Wheeze (negative), Crackles (Bibasilar), Rhonchi (negative) and Non-Labored Respirations
GI: Soft, Non Distended, Non Tender and Normal Bowel Sounds
Neurology: AO x 3 and Tremors (negative)
Skin: Warm, Dry, Cyanosis (negative) and Jaundice (negative)
Labs/Micro/Reports
Lab Data
08/23/24 04:11
08/23/24 04:11
Microbiology
08/17/24 12:53 Blood/Venous Blood Culture - Final
No Growth - Final Report
08/17/24 12:15 Blood/Venous Blood Culture - Final
No Growth - Final Report
[2024-08-23 08:43] LABS: Glucose - Point of Care 175 mg/dl (70-99)
[2024-08-23 10:42] LABS: Glucose - Point of Care 101 mg/dl (70-99)
--- NOTE | 2024-08-23 11:30 | W.PN.NEPH.PH ---
Today's Communication / Plan
-
increase coreg
follow labs
Assessment/Plan
-
Impression:
Severe sepsis, presumed pneumonia
Acute hypoxic respiratory failure
Acute on chr DCHF
Resolved COVID
CKD4 baseline high 2 range
Metabolic acidosis
Anemia
Left Foot osteomyelitis
HTN
+PR3 Ab
Nephrotic range proteinuria of 5 g, biopsy-proven diabetic nephropathy
07/21/24: K biopsy nodular D nephropathy
IFTA mod to severe
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
Plan:
IVY-likely multifactorial, with sepsis, CHF,PNA
cr down to 2.5 but worsening azotemia likely steroid at 131
O2 requirement is improving on 2lit now
non oliguric off manzanares-0monitor bladder scan
no emergent indication of HD
monitor for uremia symp-none so far
cont po lasix, monitor wts-improving
continue to hold lisinopril and avoid nephrotoxins (hemodynamically stable)
resp issue mostly PNA than CHF, Abx per ID
dose meds renally
BP increasing trend likely from steroids -likely increase BB dose later today
follow h/h-stable, had few doses of IV fe last admit, reportedly had heme +ve stool before
We have reviewed multiple occasions and today that he is at high risk of HD which he understands
d/w nursing
labs in am
d/w ICU
-
-
Date of Service: August 23, 2024
CC / HPI / ROS
-
Chief Complaint:
IVY with CKD
History of Present Illness:
Creatinine and BUN down to 2.5 and BUN upto 131
wt down on 2lit of O2, off high flow
afebrile
Remains on daptomycin
anemic-hgb stable
Review of Systems:
no cp
sob and cough improving
no n/v
SC once in last 24hrs
Labs
-
Labs:
WBC 9.5 10^3/uL (4.8-10.8) 08/23/24 04:11
RBC 3.27 10^6/uL (4.70-6.10) L 08/23/24 04:11
Hgb 8.7 g/dL (13.0-18.0) L 08/23/24 04:11
Hct 26.7 % (39.0-52.0) L 08/23/24 04:11
Plt Count 381 10^3/uL (130-400) 08/23/24 04:11
Sodium 140 mmol/L (135-145) 08/23/24 04:11
Potassium 4.9 mmol/L (3.5-5.1) 08/23/24 04:11
Chloride 107 mmol/L (98-107) 08/23/24 04:11
Carbon Dioxide 24 mmol/L (22-30) 08/23/24 04:11
BUN 131 mg/dl (9-20) H* 08/23/24 04:11
Creatinine 2.5 mg/dL (0.7-1.3) H 08/23/24 04:11
eGFR 28.16 08/23/24 04:11
Glucose 70 mg/dl (70-99) 08/23/24 04:11
Calcium 8.6 mg/dl (8.4-10.2) 08/23/24 04:11
Phosphorus 5.2 mg/dl (2.5-4.5) H 08/23/24 04:11
Dsk-Y-Sqjcmhbrwik Pept > 59061 pg/ml 08/20/24 04:11
Albumin 2.5 g/dl (3.5-5.0) L 08/19/24 03:24
Physical Exam
-
Vital Signs:
Vital Signs
Temp Pulse Resp BP Pulse Ox
97.7 F 81 16 178/95 94
08/23/24 07:30 08/23/24 10:00 08/23/24 08:12 08/23/24 08:00 08/23/24 10:00
Cardiovascular:: Regular rate and rhythm
Respiratory:: Bilateral: CTA (decreased)
Lung Excursion:: Normal
Abdomen:: Nontender and Soft
Extremity Edema:: +1: Bilateral:
Manzanares Catheter: No
[2024-08-23] MEDS: APRESOLINE 5 MG IV (11:46)
--- NOTE | 2024-08-23 12:34 | W.PN.HOSP.TC ---
Today's Communication/Plan
-
continue IV steroids - wean as able
continue IV insulin drip
increase Coreg
monitor labs/Hb
Assessment / Plan
Assessment / Plan
Assessment:
Acute hypoxic respiratory failure
- wean O2 as able; currently on 3L NC with sats >92%
Acute heart failure exacerbation, proBNP greater than 27,000
- s/p IV Lasix course; now on oral Lasix per Nephrology
- Cardiology signed off
Severe sepsis, presumed co-morbid pneumonia
Interstitial lung disease with subpleural reticular opacities, traction bronchiectasis with bilateral GGO and consolidative opacities- suspected due to recent covid-19 pneumonia; DDx also includes OP
Recent COVID illness treated with Molnupiravir/steroids
- CT chest: Bilateral airspace, ground-glass, and reticular opacities as described, most likely related to pneumonia. As above, these findings are most pronounced in the lingula and the right middle lobe. Very small bilateral pleural effusions.
Air-fluid level within the esophagus compatible with dysmotility or reflux. Mild coronary and aortic atherosclerosis.
- CRP elevated; continue IV steroids started 08/19/24; wean as able. CRP most recently 43.20
- completed Meropenem course per ID.
Metabolic acidosis - resolved
Acute kidney injury on CKD stage 4 (baseline Cr 1.7) - multifactorial from sepsis, PNA, CHF
- monitor Cr daily; follow nephrology recs
- cont to hold lisinopril and avoid nephrotoxins
Steroid induced azotemia
History of MRSA cellulitis
IDDM
steroid induced hyperglycemia
- recent A1c 5.7%
- continue Basal/Bolus + SSI
- continue regular insulin drip/hyperglycemia protocol with ICU level of care with uncontrolled sugars; hopefully wean off in next 24-48 hours as IV steroid dosing decreases
Nephrotic range proteinuria
Positive proteinase 3 antibodies
essential Hypertension
- holding JOSE
- continue Coreg
Chronic anemia
Left foot osteomyelitis treating outpatient with daptomycin
- course to complete 08/25 per ID
Anxiety
- continue Ativan/Gabapentin
DVT ppx: SC Heparin
Code: Full
Total Critical Care Time 44 minutes. I was immediately available to the patient and staff. I personally examined, reviewed labs, diagnostic images/reports, interpretations, treatment plans, discussed patient care with other providers and family
or caregivers (if patient is unable to make decisions), entered orders as appropriate and documented the medical record.
Anticipated Discharge: > 48 hours
Subjective/Interval History
-
Date of Service: August 23, 2024
stable on 3-6L NC
denies SOB
Objective Data
-
Labs:
Laboratory Results
08/23/24
04:11
WBC 9.5
Hgb 8.7 L
Hct 26.7 L
Plt Count 381
Sodium 140
Potassium 4.9
Chloride 107
Carbon Dioxide 24
BUN 131 H*
Creatinine 2.5 H
Glucose 70
Calcium 8.6
Vital Signs:
Vital Signs
Temp Pulse Resp BP Pulse Ox
97.7 F 75 16 183/94 94
08/23/24 07:30 08/23/24 11:46 08/23/24 08:12 08/23/24 11:46 08/23/24 10:00
I&O
08/22/24 08/23/24 08/24/24
06:59 06:59 06:59
Intake Total 436.0 / 436.0 670.8 / 680.8 275.3 / 275.3
Output Total 900 / 900 2700 / 2700
Balance -464.0 / -464.0 -9.2 / -2019.2 275.3 / 275.3
Physical Exam
-
General: No Apparent Distress
HEENT: Normocephalic and Atraumatic
Respiratory: Decreased Breath Sounds
Cardiac: Regular Rhythm and S1/S2
GI: Soft and Nontender
Musculoskeletal: No Edema
Neuro: AO x 3
Psych: Calm
Data Reviewed
-
Critical Care Time (in minutes): 44
Labs: Labs Reviewed by me
[2024-08-23 12:44] LABS: Glucose - Point of Care 97 mg/dl (70-99)
[2024-08-23] MEDS: DUONEB INH (13:01)
[2024-08-23] MEDS: DEXTROSE 50% SYRINGE 12.5 GRAMS IV ×2 (14:50→16:35)
[2024-08-23 14:59] LABS: Glucose - Point of Care 136 mg/dl (70-99)
[2024-08-23] MEDS: NOVOLOG FLEXPEN SC (16:40)
[2024-08-23 16:50] LABS: Glucose - Point of Care 48 mg/dl (70-99)
[2024-08-23 17:10] LABS: Glucose - Point of Care 44 mg/dl (70-99)
--- NOTE | 2024-08-23 17:27 | PTCARENOTE ---
Hypoglycemia episode
at 16:35 while pt per hyperglycemia protocol at 10 unit /10ml blood sugar 47; per protocol Dextrose 12.5 adm Insulin off
At 16:50 recheck blood sugar 44; Second dextrose 12.5 adm . pt symptomatic : feeling shakes and weakness. Dinner 100%
At 17:21 blood sugar 141; Per protocol Insulin resumed at 8 units. Blood sugar to be rechecked at 18:21
[2024-08-23 17:32] LABS: Glucose - Point of Care 145 mg/dl (70-99)
[2024-08-23 18:27] LABS: Glucose - Point of Care 217 mg/dl (70-99)
[2024-08-23 19:32] LABS: Glucose - Point of Care 136 mg/dl (70-99)
[2024-08-23 20:26] LABS: Glucose - Point of Care 144 mg/dl (70-99)
[2024-08-23] MEDS: COREG 12.5 MG PO (20:42)
[2024-08-23 21:13] LABS: Glucose - Point of Care 146 mg/dl (70-99)
[2024-08-23 22:21] LABS: Glucose - Point of Care 145 mg/dl (70-99)
--- NOTE | 2024-08-23 22:47 | PTCARENOTE ---
[id number]: Received patient in bed on warming blanket and insulin drip. Patient is Oriented x3, but disoriented to unit. Pt was adamant that he was not in the ICU despite multiple attempts at making him aware. Pt believed that he was on a different
unit as he was told that he was not in the ICU. The patient became very agitated and began using profanity not particularly directed at this RN. Pt stated that 'I am not in the fucking ICU, stop telling me that.' This RN then asked the patient id he
is aware of where he is. Pt answered '[facility].' The patient became more agitated with his insulin gtt and the frequency of getting his blood sugar checked. Per the patient, he was told that the insulin drip was being discontinued. Pt
vocalized how he was being 'fucking lied to by everyone. One person tells me one thing. The doctor said that i didn't need the insulin and you are telling me something different. I want it off. The steriod is what's causing my sugars to be high not
the diabetes. Stop this fucking thing and take it off. I am getting out of here on sunday.' Validated the patient's concerns and explained to him the reasoning for the insulin. Assured the patient that his concerns will be passed on to the incoming
staff in the morning. Patient also encouraged to vocalize his concerns to the care team during the day. The patient then got frustrated when I told him that he may need to have his o2/nc placed back on as his SaO2 was 88% on room air. Pt stated that
he didn't need oxygen all day and refused the nasal canula. The patient then stated that he will refuse his hs bipap. Continued utilizing calming measures. Pt's vocalized not being able to walk around the unit today and fears that he'll continue
getting 'weaker.' Assisted the patient to the bathroom with the walker. Gait was steady. VSS on the monitor. Post bathroom ambulation, pt was more calm and agreeable to treatment plan. The patient sat on the side of the bed for his night time
medications and spoke about his upbringing. Pt however refused his daisha hugger as he 'was too hot.' Pt's temp 96.3 axillary. Four warm blankets placed.
[2024-08-23 23:13] LABS: Glucose - Point of Care 140 mg/dl (70-99)
[2024-08-24] VITALS (15 sets, daily range): BP systolic 149–179; BP diastolic 76–114; PULSE 2–86; BMI 22.3
[2024-08-24] MEDS: SOLU-MEDROL PF 40 MG IV ×3 (00:08→19:48)
[2024-08-24] MEDS: HEPARIN 5000 UNITS SC ×4 (00:08→23:43)
--- NOTE | 2024-08-24 01:06 | PTCARENOTE ---
Patient reassessed. No changes. Remains on Bipap. VSS. Pt's temp is now 97 F.
[2024-08-24 01:14] LABS: Glucose - Point of Care 136 mg/dl (70-99)
[2024-08-24 03:16] LABS: Glucose - Point of Care 111 mg/dl (70-99)
[2024-08-24 03:29] LABS: Hematocrit 28.1 % (39.0-52.0); Hemoglobin 9.2 g/dL (13.0-18.0); Mean Corp Hgb Conc. 32.7 g/dL (33.0-37.0); Mean Corpuscular Hgb 26.7 pg (27.0-31.0); Mean Corpuscular Volume 81.4 fL (80.0-94.0); Mean Platelet Volume 9.6 fL (7.4-10.4); Platelet Count 384 10^3/uL (130-400); Red Blood Cell Count 3.45 10^6/uL (4.70-6.10); Red Cell Dist. Width 16.4 % (11.5-14.5); White Blood Cell Count 8.7 10^3/uL (4.8-10.8)
[2024-08-24 03:41] LABS: Calcium 8.8 mg/dl (8.4-10.2); Carbon Dioxide 26 mmol/L (22-30); Chloride 107 mmol/L (98-107); Creatine Phosphokinase 33 U/L (55-170); Estimated Creatinine Clearance 36 ml/min; Glucose 113 mg/dl (70-99); Potassium 4.9 mmol/L (3.5-5.1); Sodium 140 mmol/L (135-145); eGFR 29.58
[2024-08-24 03:52] LABS: Blood Urea Nitrogen 130 mg/dl (9-20)
[2024-08-24 04:13] LABS: Glucose - Point of Care 94 mg/dl (70-99)
--- NOTE | 2024-08-24 04:54 | PTCARENOTE ---
Patient reassessed. Pt hadn't voided since prior straight cath session. Patient bladder scanned for 513. encouraged the patient to attempt voiding. the patient ambulated to the bathroom with a walker. Pt's unable to void. Reviewed bladder scan order
with the patient. the patient refused being straight cath. Pt placed on 3 L midflow nc for sao2 87% on room air. Pt's oob to chair. call peters is within reach.
[2024-08-24 05:13] LABS: Glucose - Point of Care 129 mg/dl (70-99)
[2024-08-24 06:14] LABS: Glucose - Point of Care 154 mg/dl (70-99)
[2024-08-24 07:33] LABS: Glucose - Point of Care 142 mg/dl (70-99)
[2024-08-24] MEDS: DUONEB 3 ML INH ×4 (07:54→19:38)
[2024-08-24] MEDS: PULMICORT 0.5 MG INH ×2 (07:54→19:38)
--- NOTE | 2024-08-24 08:07 | PTCARENOTE ---
0700 pt in a chair on 2L of O 2 . Insulin qtt via left FA peripheral line at 9 units
AAO x3; Denies pain. expressing Frustration with prolong hospitalization
SR telemetry +2 edema b/l LE
Abdomen soft non tender. Toleration current diet
Difficulties voiding will continue to monitor
--- NOTE | 2024-08-24 08:25 | W.PN.INTV ---
Today's Communication / Plan
Recommendations
Wean down solumedrol to 40mg IV q12hr --> hopefully can transition to extended prednisone taper over next 1-2 days
Wean off insulin drip today by bridging with Lantus and then start basal�bolus SQ insulin dosing
Goal BG 140-180
Continue PO lasix
Trend CRP
Cards/renal following
PT/OT
Up OOB as tolerated
Continue with ICU level care until he is officially off insulin gtt
Assessment
-
Patient is a 64-year-old male with previous history of hypertension, diabetes, chronic kidney disease presenting to ER with complaints of shortness of breath. He had recently been diagnosed with acute COVID illness 7 days prior. He had been
receiving IV antibiotic infusions for cellulitis of his left lower extremity. Was reportedly 84% on 5 L in ER, chest x-ray demonstrating bibasilar infiltrates with left greater than right. proBNP greater than 27,000, there is metabolic acidosis
with elevated creatinine. He is not currently on pressors, he is admitted to ICU for severe sepsis.
Impression:
Acute heart failure exacerbation, proBNP greater than 27,000
Severe sepsis, presumed co-morbid pneumonia
Interstitial lung disease with subpleural reticular opacities, traction bronchiectasis with bilateral GGO and consolidative opacities- suspected due to recent covid-19 pneumonia; DDx also includes OP
Recent COVID illness
Metabolic acidosis - resolved
Acute kidney injury on CKD (baseline Cr 1.7) - IVY stable
Risingn BUN - likely due to steroids in the setting of IVY
DM type II (HbA1C: 5.7 on 07/10/2024) c/b hyperglycemia now on insulin gtt (started 08/20)
Leukocytosis - now resolved
Abnormal chest x-ray
Left foot osteomyelitis due to MRSA
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
History of MRSA cellulitis
CKD 4
Nephrotic range proteinuria
Positive proteinase 3 antibodies
Hypertension
Chronic anemia
Left foot osteomyelitis treated with daptomycin
Anxiety
Plan
Oxygen needs: Markedly improved and as of 08/24/2024 he is on room air breathing comfortably; prior to that he had required high flow nasal cannula on 08/21, and had been on midflow nasal cannula before and after that date.
BIPAP nightly/PRN
Prior history of lung disease: none, but has had recent history of CHF and COVID illness
Supplemental O2 as needed to maintain sats > 89%, wean as tolerated
Admission CXR reviewed indicating L>R infiltrate
He had CT chest on AM of 08/18/2024 showing bilateral consolidative opacities with subpleural reticular opacities, GGO, and traction bronchiectasis (worse in the bases>apices) and small bilateral pleural effusions
- DDx for this includes organizing pneumonia vs [id number] ILD/pulmonary fibrosis in the setting of acute decompensated heart failure; bacterial pneumonia also contributing
- Continue PO lasix 40mg daily, trend sCr and UOP, aim for net negative fluid balance
- Given that his hypoxia has continued to markedly improve and he is now on room air as of 08/24, no need for diuresis at this time. Continue to wean down steroids as tolerated.
- CRP level was 200.9 on 08/18/2024 --> CRP remains elevated at 233 from 08/20 --> systemic steroids started on 08/19 with solumedrol 40mg IV q6hr --> wean as he clinically improves
- Currently on solumedrol 40mg IV q8hr --> wean down to 40mg IV q12hr
- Maintain euglycemia with goal BG >100 and <180 while on high dose steroids; continue insulin gtt (started 08/20/2024 - hyperglycemia protocol) --> wean off today/bridge with lantus
- trend CRP level
- DuoNebs QID and started budesonide BID on 08/21
- ID on board --> last day of dapto today (08/24) for left foot osteomyelitis; he is s/p meropenem; defer duration of ABx to ID, but would favor at least 7-10 days total given the extensive changes seen on CT chest from 08/18/2024
Hemodynamically stable, not requiring pressors.
Cardiac history reviewed--recent history of HFpEF, discharged 08/08/24
proBNP from 08/14/2024 >[id number]
Prior ECHO reviewed indicating preserved function
Cards consulted - recs appreciated - they signed off on 08/20
Monitor on telemetry
Replete K>4, Mg>2
IVY present superimposed on CKD, baseline creatinine approximately 1.6�1.8
Renal following--recurrent volume issues, unclear candidacy for HD
Follow urine output and trend sCr; renally dose all meds/Abx
On 08/18, bicarb supplementation stopped given his serum HCO3 level is now >24; blood gas on AM of 08/19/2024 shows acute respiratory alkalosis
Fever and increased WBC on presentation, suspect post COVID PNA
Started on empiric antibiotics, ID consult obtained -- last dose of meropenem was 08/20, last day of daptomycin today (08/24) and is s/p Levaquin on 08/17/2024 and cefepime/vancomycin on 08/14/2024
Blood cultures show NGTD (collected 08/14/2024 + 08/17/2024); sputum culture from 08/16/2024 (poor sample) + repeated on 08/17/2024 that shows NGTD
Recent history of MRSA infection involving L-foot
Trend fever + WBC count
Lactate not elevated on admission (1.0 on 08/14/2024) - no need to continue trending
PT/OT, OOB encouraged
On 08/20, he was upgraded to ICU level of care due to need for insulin drip. I will wean him off the insulin drip today with Lantus as a bridge and then start basal�bolus insulin dosing. Refractory Repairer/pulmonary service will continue to follow along.
Critical care statement: A total of 38 minutes of critical care time was provided for this patient today. This includes management of unstable vital signs, evaluation of the patient at bedside, reviewing the patient's pertinent medical records
including radiographs, microbiology, laboratory evaluations, and discussion with primary team, consultants, pharmacy, nutrition, physical therapy, case management, charge nurse, critical care nursing, and respiratory therapy.
Diagnostic Data
Chest X-Ray: 08/14/24- Findings suggesting moderate left upper and lower lobe and moderate right lower lobe pneumonia. Progressed.
CXR 08/21/2024: Improving congestive heart failure.
CT Chest w/o contrast 08/18/2024:
1. Bilateral airspace, groundglass, and reticular opacities as described, most likely related to pneumonia. As above, these findings are most pronounced in the lingula and the right middle lobe. Very small bilateral pleural effusions.
2. Air-fluid level within the esophagus compatible with dysmotility or reflux.
3. Mild coronary and aortic atherosclerosis.
Echo: 07/10/2024:
1. Mild concentric LVH with EF 60-65%
2. Mild RVE
3. LAE
4. No evidence of significant valvular disease
Reports and relevant images were personally reviewed.
Subjective Dataa
Subjective Data
Date of Service:
Date of Service: August 24, 2024
Chief Complaint: Refractory Repairer Follow Up
Subjective:
Patient was seen and evaluated today at bedside. He is sitting in chair on room air breathing comfortably. Wore BiPAP overnight on 12/5cmH2O bled with 3 L/min. Currently, BP 150/81 + he is saturating 94%. He feels well, denies shortness of
breath on room air. Eager to go home. Remains on insulin drip. He has received approximately 117 units of insulin over the last 24 hours. He currently denies DUARTE, chest pain, abdominal pain, fevers or chills.
Review of Systems
General: Other (Negative unless mentioned above)
Objective Data
Data Reviewed
Vital Signs / I&O / Oxygen:
Vital Signs
Temp Pulse Resp BP Pulse Ox
97.4 F 75 16 149/80 90
08/24/24 07:31 08/24/24 08:35 08/24/24 07:56 08/24/24 08:35 08/24/24 08:00
Intake and Output
08/23/24 08/24/24 08/25/24
06:59 06:59 06:59
Intake Total 670.8 / 680.8 690.0 / 698.0 248 / 248
Output Total 2700 / 2700 1600 / 1600 500 / 500
Balance -2029.2 / -2019.2 -910.0 / -902.0 -252 / -252
SaO2 90
Nasal Cannula flow liters per 2
minute
Physical Exam
General: Respiratory Distress (negative), Comfortable, Chills (negative), Sweats (negative) and Other (NAD)
HEENT: Normocephalic and Anicteric
Cardiovascular: S1-S2, Rub (negative) and Peripheral Edema (+2 lower extremity edema (R >L))
Respiratory: Wheeze (negative), Crackles (Bibasilar), Rhonchi (negative) and Non-Labored Respirations
GI: Soft, Non Distended, Non Tender and Normal Bowel Sounds
Neurology: AO x 3 and Tremors (negative)
Skin: Warm, Dry, Cyanosis (negative) and Jaundice (negative)
Labs/Micro/Reports
Lab Data
08/24/24 03:10
08/24/24 03:10
Microbiology
08/17/24 12:53 Blood/Venous Blood Culture - Final
No Growth - Final Report
08/17/24 12:15 Blood/Venous Blood Culture - Final
No Growth - Final Report
[2024-08-24] MEDS: NEURONTIN 300 MG PO ×2 (08:29→19:48)
[2024-08-24] MEDS: WELLBUTRIN SR (12 hour sustained release) 150 MG PO ×2 (08:35→19:48)
[2024-08-24] MEDS: COREG 12.5 MG PO ×2 (08:35→19:48)
[2024-08-24] MEDS: FLOMAX 0.4 MG PO (08:36)
[2024-08-24] MEDS: LASIX 40 MG PO (08:36)
[2024-08-24] MEDS: ATIVAN 1 MG PO ×3 (08:36→21:47)
[2024-08-24 09:13] LABS: Glucose - Point of Care 124 mg/dl (70-99)
[2024-08-24 09:37] LABS: Glucose - Point of Care 120 mg/dl (70-99)
--- NOTE | 2024-08-24 09:56 | W.PN.ID1 ---
Date of Service
Date of Service: August 24, 2024
Today's Communication
Complete course of daptomycin.
Assessment / Plan
Fever
- Improved/resolved
Pneumonia
- s/p course of empiric meropenem
S/P COVID
- s/p molnupiravir/decadron; antigen testing negative x2
CKD4 - nephrotic range proteinuria
CHF
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
Recommendations:
- Continue daptomycin - dosing 10 mg/kg q48 hr - to finish 6-week course tomorrow.
- Fevers have resolved. Current leukocytosis likely secondary to steroid effect.
- CK has remained normal
- Continue to follow clinically
����������������������������������������������������������
Chief Complaint
-: Fever, Leukocytosis and Pneumonia
Subjective / Review of Systems
Review of Systems: No Fever and No Chills
Vital Signs / Physical Exam
Vital Signs
Vital Signs
Temp Pulse Resp BP Pulse Ox
97.4 F 75 16 149/80 90
08/24/24 07:31 08/24/24 08:35 08/24/24 07:56 08/24/24 08:35 08/24/24 08:00
Physical Exam
Constitutional: No Acute Distress, Chronically Ill and Non-toxic
Eyes: Sclera Anicteric
Cardiovascular: Regular Rate and S1/S2; Negative S3/S4
Pulmonary: Non Labored
Gastrointestinal: Soft, Non Tender, Non Distended and Normal Bowel Sounds
Extremities: Negative Cyanosis or Erythema
Skin: Warm and Dry; Negative Rash or Jaundice
Neurological: Awake and Alert
Psychological: Calm
Lines: Other (midline)
Objective Data
Lab Data
Lab Results
08/24/24 03:10
08/24/24 03:10
PT 17.0 Sec (11.4-14.6) H 08/14/24 14:46
INR 1.33 08/14/24 14:46
APTT 40.0 Sec (23.4-35.0) H 08/14/24 14:46
Estimated Creat Clear 36 ml/min 08/24/24 03:10
Lactic Acid Cancelled 08/14/24 12:45
Total Bilirubin 0.4 mg/dl (0.2-1.3) 08/19/24 03:24
AST 18 U/L (17-59) 08/19/24 03:24
ALT 21 U/L (0-50) 08/19/24 03:24
Alkaline Phosphatase 133 U/L (38-126) H 08/19/24 03:24
C-Reactive Protein 43.20 mg/L (0.0-10.00) H 08/23/24 04:11
Most recent labs reviewed.
Micro Results:
08/17/24 12:53 Blood Culture - Final
Blood/Venous No Growth - Final Report
08/17/24 12:15 Blood Culture - Final
Blood/Venous No Growth - Final Report
08/17/24 15:21 Respiratory Culture - Final
Sputum Usual Respiratory Jyoti
Gram Stain - Final
08/14/24 09:25 Blood Culture - Final
Blood/Venous No Growth - Final Report
08/14/24 08:59 Blood Culture - Final
Blood/Venous No Growth - Final Report
08/16/24 03:56 Respiratory Culture - Final
Sputum Gram Stain - Final
08/15/24 03:17 MRSA Screen - Final
Nose No Methicillin Resistant Staphylococcus aureus isolated.
08/14/24 14:46 Influenza Types A & B (LAURA) - Final
Nasal Swab Negative for Influenza A & B, NAAT
Negative results must be combined with clinical observations
and patient history.
Nucleic Acid Amplification test (NAAT)performed on the
[employer] platform.
Imaging:
08/18/2024 CXR (2 view): Right upper extremity PICC line in place. Unchanged bibasilar consolidation, worse on the left. Increased diffuse interstitial opacity likely related to interstitial edema. Please see full dictation for additional detail.
Film personally viewed.
[2024-08-24 10:49] LABS: Glucose - Point of Care 107 mg/dl (70-99)
[2024-08-24] MEDS: CUBICIN 16 MG IV (10:57)
--- NOTE | 2024-08-24 11:52 | W.PN.NEPH.PH ---
Today's Communication / Plan
-
cont po lasis
labs in am
monitor bladder scan
Assessment/Plan
-
Impression:
Severe sepsis, presumed pneumonia
Acute hypoxic respiratory failure
Acute on chr DCHF
Resolved COVID
CKD4 baseline high 2 range
Metabolic acidosis
Anemia
Left Foot osteomyelitis
HTN
+PR3 Ab
Nephrotic range proteinuria of 5 g, biopsy-proven diabetic nephropathy
07/21/24: K biopsy nodular D nephropathy
IFTA mod to severe
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
Plan:
IVY-likely multifactorial, with sepsis, CHF,PNA
cr down to 2.4 but worsening azotemia likely steroid at 130
non oliguric off manzanares-but requiring SC
Pt has h/o retention in the past -low threshold to place manzanares and will likely need eval out pt, on flomax
no emergent indication of HD
monitor for uremia symp-none so far
cont po lasix, monitor wts-improving
resp issue mostly PNA than CHF, Abx per ID
dose meds renally
BP increasing trend likely from steroids -increase BB dose 08/23, likely resume ACEI soon
follow h/h-stable,
We have reviewed multiple occasions and today that he is at high risk of HD which he understands
d/w nursing
labs in am
-
-
Date of Service: August 24, 2024
CC / HPI / ROS
-
Chief Complaint:
IVY with CKD
History of Present Illness:
Creatinine and BUN down to 2.4 and BUN unchanged at 130
wt down on 2lit of O2, off this am
afebrile
Remains on daptomycin
anemic-hgb stable 9.2
Review of Systems:
no cp
sob and cough improving
no n/v
SC once in last 24hrs, reports long standing issue
Labs
-
Labs:
WBC 8.7 10^3/uL (4.8-10.8) 08/24/24 03:10
RBC 3.45 10^6/uL (4.70-6.10) L 08/24/24 03:10
Hgb 9.2 g/dL (13.0-18.0) L 08/24/24 03:10
Hct 28.1 % (39.0-52.0) L 08/24/24 03:10
Plt Count 384 10^3/uL (130-400) 08/24/24 03:10
Sodium 140 mmol/L (135-145) 08/24/24 03:10
Potassium 4.9 mmol/L (3.5-5.1) 08/24/24 03:10
Chloride 107 mmol/L (98-107) 08/24/24 03:10
Carbon Dioxide 26 mmol/L (22-30) 08/24/24 03:10
BUN 130 mg/dl (9-20) H* 08/24/24 03:10
Creatinine 2.4 mg/dL (0.7-1.3) H 08/24/24 03:10
eGFR 29.58 08/24/24 03:10
Glucose 113 mg/dl (70-99) H 08/24/24 03:10
Calcium 8.8 mg/dl (8.4-10.2) 08/24/24 03:10
Phosphorus 5.2 mg/dl (2.5-4.5) H 08/23/24 04:11
Ztx-L-Eqtafvguwor Pept > 44658 pg/ml 08/20/24 04:11
Albumin 2.5 g/dl (3.5-5.0) L 08/19/24 03:24
Physical Exam
-
Vital Signs:
Vital Signs
Temp Pulse Resp BP Pulse Ox
96.6 F L 75 16 149/80 90
08/24/24 11:16 08/24/24 08:35 08/24/24 07:56 08/24/24 08:35 08/24/24 08:00
Cardiovascular:: Regular rate and rhythm
Respiratory:: Bilateral: CTA
Lung Excursion:: Normal
Abdomen:: Nontender and Soft
Extremity Edema:: +1: Left: and +2: Right:
Manzanares Catheter: No
[2024-08-24 12:05] LABS: Glucose - Point of Care 108 mg/dl (70-99)
[2024-08-24] MEDS: APRESOLINE 5 MG IV ×2 (12:19→21:53)
--- NOTE | 2024-08-24 13:04 | W.PN.HOSP.TC ---
Today's Communication/Plan
-
wean steroids to q12h
attempt to wean off insulin drip
continue daptomycin
PT/OT
Assessment / Plan
Assessment / Plan
Assessment:
Acute hypoxic respiratory failure
- wean O2 as able; currently on 3L NC with sats >92%
Acute heart failure exacerbation, proBNP greater than 27,000
- s/p IV Lasix course; now on oral Lasix per Nephrology
- Cardiology signed off
Severe sepsis, presumed co-morbid pneumonia
Interstitial lung disease with subpleural reticular opacities, traction bronchiectasis with bilateral GGO and consolidative opacities- suspected due to recent covid-19 pneumonia; DDx also includes OP
Recent COVID illness treated with Molnupiravir/steroids
- CT chest: Bilateral airspace, ground-glass, and reticular opacities as described, most likely related to pneumonia. As above, these findings are most pronounced in the lingula and the right middle lobe. Very small bilateral pleural effusions.
Air-fluid level within the esophagus compatible with dysmotility or reflux. Mild coronary and aortic atherosclerosis.
- CRP elevated; continue IV steroids started 08/19/24; wean 08/24 to q12h dosing. CRP most recently 43.20
- completed Meropenem course per ID.
Metabolic acidosis - resolved
Acute kidney injury on CKD stage 4 (baseline Cr 1.7) - multifactorial from sepsis, PNA, CHF
- monitor Cr daily; follow nephrology recs
- cont to hold lisinopril and avoid nephrotoxins
Steroid induced azotemia
History of MRSA cellulitis
IDDM
steroid induced hyperglycemia
- recent A1c 5.7%
- continue Basal/Bolus + SSI
- continue regular insulin drip/hyperglycemia protocol with ICU level of care with uncontrolled sugars; hopefully wean off in next 24-48 hours as IV steroid dosing continuse to decrease
Nephrotic range proteinuria
Positive proteinase 3 antibodies
essential Hypertension
- holding JOSE
- continue Coreg
Chronic anemia
Left foot osteomyelitis treating outpatient with daptomycin
- course to complete 08/25 per ID
Anxiety
- continue Ativan/Gabapentin
DVT ppx: SC Heparin
Code: Full
Total Critical Care Time 44 minutes. I was immediately available to the patient and staff. I personally examined, reviewed labs, diagnostic images/reports, interpretations, treatment plans, discussed patient care with other providers and family
or caregivers (if patient is unable to make decisions), entered orders as appropriate and documented the medical record.
Anticipated Discharge: > 48 hours
Subjective/Interval History
-
Date of Service: August 24, 2024
on 3L and stable >90%
Afebrile, denies SOB
Objective Data
-
Labs:
Laboratory Results
08/24/24
03:10
WBC 8.7
Hgb 9.2 L
Hct 28.1 L
Plt Count 384
Sodium 140
Potassium 4.9
Chloride 107
Carbon Dioxide 26
BUN 130 H*
Creatinine 2.4 H
Glucose 113 H
Calcium 8.8
Vital Signs:
Vital Signs
Temp Pulse Resp BP Pulse Ox
96.6 F L 77 17 149/80 90
08/24/24 11:16 08/24/24 11:52 08/24/24 11:52 08/24/24 08:35 08/24/24 11:52
I&O
08/23/24 08/24/24 08/25/24
06:59 06:59 06:59
Intake Total 670.8 / 680.8 690.0 / 698.0 248 / 248
Output Total 2700 / 2700 1600 / 1600 500 / 500
Balance -2029.2 / -2019.2 -910.0 / -902.0 -252 / -252
Physical Exam
-
General: No Apparent Distress
HEENT: Normocephalic and Atraumatic
Respiratory: Decreased Breath Sounds; Negative Wheezes
Cardiac: Regular Rhythm and S1/S2
Genito-urinary: No Costovertebral Tender
Neuro: AO x 3
Hematologic / Lymphatic: No Lymphadenopathy
Psych: Calm
Data Reviewed
-
Critical Care Time (in minutes): 44
Labs: Labs Reviewed by me
[2024-08-24 13:36] LABS: Glucose - Point of Care 255 mg/dl (70-99)
[2024-08-24 14:41] LABS: Glucose - Point of Care 156 mg/dl (70-99)
[2024-08-24] MEDS: SENOKOT-S 1 TABLET PO (16:05)
[2024-08-24] MEDS: TYLENOL 650 MG PO (16:05)
[2024-08-24 16:24] LABS: Glucose - Point of Care 203 mg/dl (70-99)
[2024-08-24] MEDS: LANTUS 0.35 UNITS SC (16:43)
[2024-08-24 17:28] LABS: Glucose - Point of Care 302 mg/dl (70-99)
--- NOTE | 2024-08-24 18:40 | PTCARENOTE ---
16:45 Lantus 35 units administered . per order 18:41 insuling qtt infusing at 4 units turned off.
--- NOTE | 2024-08-24 20:00 | PTCARENOTE ---
Rec'd pt resting in bed, amb to bathroom w/ rolling walker & back to bed- nelda well.denies pain,SR w/ 1' av block, + pulses, + LE edema, RA, lungs decr in bases , + APODACA, + bowel sounds, no bm, abd soft, voiding tab urine w/o difficulty
[2024-08-24] MEDS: LANTUS 0.15 UNITS SC (21:47)
--- NOTE | 2024-08-24 21:50 | PTCARENOTE ---
apresoline 5mg iv given for bp, changed to bipap 12/5 w/ 2 liters by resp therapist for the night
[2024-08-24 21:57] LABS: Glucose - Point of Care 183 mg/dl (70-99)
--- NOTE | 2024-08-24 23:50 | PTCARENOTE ---
sys reviewed, changes noted
[2024-08-25] VITALS (18 sets, daily range): BP systolic 148–183; BP diastolic 76–97; PULSE 2–85; BMI 22.2
--- NOTE | 2024-08-25 04:00 | PTCARENOTE ---
sys reviewed, bipap off per pt request, placed on RA
[2024-08-25 04:07] LABS: Hematocrit 28.8 % (39.0-52.0); Hemoglobin 9.5 g/dL (13.0-18.0); Mean Corpuscular Hgb 27.6 pg (27.0-31.0); Mean Corpuscular Volume 83.7 fL (80.0-94.0); Mean Platelet Volume 9.6 fL (7.4-10.4); Platelet Count 357 10^3/uL (130-400); Red Blood Cell Count 3.44 10^6/uL (4.70-6.10); Red Cell Dist. Width 16.5 % (11.5-14.5); White Blood Cell Count 10.1 10^3/uL (4.8-10.8)
[2024-08-25 04:31] LABS: NT-proBNP 6870 pg/ml
[2024-08-25 04:43] LABS: Blood Urea Nitrogen 128 mg/dl (9-20); Calcium 8.7 mg/dl (8.4-10.2); Carbon Dioxide 26 mmol/L (22-30); Chloride 106 mmol/L (98-107); Estimated Creatinine Clearance 38 ml/min; Glucose 199 mg/dl (70-99); Potassium 5.1 mmol/L (3.5-5.1); Sodium 140 mmol/L (135-145); eGFR 31.13
[2024-08-25] MEDS: NOVOLOG FLEXPEN-HIGH RESISTANCE 4 UNITS SC (07:24)
[2024-08-25 07:35] LABS: Glucose - Point of Care 214 mg/dl (70-99)
[2024-08-25] MEDS: NEURONTIN 300 MG PO ×2 (07:35→19:14)
[2024-08-25] MEDS: LANTUS 0.2 UNITS SC (07:36)
[2024-08-25] MEDS: WELLBUTRIN SR (12 hour sustained release) 150 MG PO ×2 (07:36→19:14)
[2024-08-25] MEDS: ATIVAN 1 MG PO ×3 (07:37→21:39)
[2024-08-25] MEDS: SOLU-MEDROL PF 40 MG IV (07:37)
[2024-08-25] MEDS: FLOMAX 0.4 MG PO (07:37)
[2024-08-25] MEDS: HEPARIN 5000 UNITS SC ×3 (07:38→23:35)
[2024-08-25] MEDS: COREG 12.5 MG PO ×2 (07:40→19:15)
[2024-08-25] MEDS: LASIX 40 MG PO (07:40)
[2024-08-25] MEDS: DUONEB 3 ML INH ×3 (08:04→19:07)
[2024-08-25] MEDS: PULMICORT 0.5 MG INH (08:04)
--- NOTE | 2024-08-25 08:05 | PN.DE.MGMTRT ---
Insulin Management
- -
08/25/2024: Diabetes Management F/U:
64 year old Male who presented to the ED with increasing weakness and SOB due to Acute hypoxic Resp Failure. Pt was recently d/c'd after hospitalization for LE Cellulitis, COVID-19 pneumonia and HFpEF a couple days ago. PMH: HTN, HLD, Severe
Peripheral Neuropathy, CKD III, Lumbar DDD, Anxiety /Depression, MRSA bacteremia with left foot Osteomyelitis (on daptomycin), HFpEF and T2DM.
Recent A1C was 5.7% on 07/10/24, had been 14.1% in 10/2023. Pt is not a good historian, states he takes 75/25 but doesn't take a standard dose, he reports taking his insulin on a SS, ~ 10-25 units in the morning and no other insulin or diabetes
medications. He has a monitor and checks his blood sugars 3x/day.
He is currently ordered Lantus 22 units @HS, NovoLog 7 units AC and high corrective insulin.
Pt awake, alert, sitting up in chair on O2, offers no complaints. Able to discuss diabetes management.
08/19 Started on IV steroids--> hyperglycemia-->Initiated glycemic protocol due to ongoing Hyperglycemia despite efforts to adjust SQ insulin doses.
08/24 steroid dose tapered to 40mg Q12hrs, Transitioned off glycemic protocol to SQ insulin.
Premeal glucose 107 to 203, Lantus dose adjusted to 20 units in AM and 15 units in PM
Will switch pt back to his OP regimen, 70/30 25 units BID, 1st dose at dinner time. Cont moderate corrective with meals
Will cont to follow and make further dose adjustments if needed
Discussed with nurse and ICU team. Pt has a working glucose meter at home.
Diabetes History
- -
Type of Diabetes: 2 requiring insulin
Pre-Admission Diabetes Regimen
08/25/24
03:53
Creatinine 2.3 H
Insulin Pump Settings
IP Diabetes Regimen
08/24/24 08/24/24 08/24/24
09:02 09:25 10:37
Glucose
POC Glucose 124 H 120 H 107 H
08/24/24 08/24/24 08/24/24
11:53 13:15 14:20
Glucose
POC Glucose 108 H 255 H 156 H
08/24/24 08/24/24 08/24/24
16:03 17:15 21:46
Glucose
POC Glucose 203 H 302 H 183 H
08/25/24 08/25/24
03:53 07:23
Glucose 199 H
POC Glucose 214 H
Meal type: Lunch
Amount consumed: 100%
Patient Education
--- NOTE | 2024-08-25 08:17 | W.PN.NEPH.PH ---
Today's Communication / Plan
-
Maintain oral Lasix
Follow BMP
GFR at baseline but with profound azotemia
Assessment/Plan
-
Impression:
Severe sepsis, presumed pneumonia
Acute hypoxic respiratory failure
Acute on chr DCHF
Resolved COVID
CKD4 baseline high 2 range
Metabolic acidosis
Anemia
Left Foot osteomyelitis
HTN
+PR3 Ab
Nephrotic range proteinuria of 5 g, biopsy-proven diabetic nephropathy
07/21/24: K biopsy nodular D nephropathy
IFTA mod to severe
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
Plan:
IVY-likely multifactorial, with sepsis, CHF,PNA
cr down to 2.3 but persistent azotemia with BUN of 120
non oliguric off manzanares-but requiring SC , urine output 2300 cc
Pt has h/o retention in the past -low threshold to place manzanares and will likely need eval out pt, on flomax
no emergent indication of HD
monitor for uremia symp-none so far
continue po lasix 40 mg,, monitor wts-improving
resp issue mostly PNA than CHF, Abx per ID
dose meds renally
BP increasing trend likely from steroids -increase BB dose 08/23, likely resume ACEI soon
follow h/h-stable,
We have reviewed multiple occasions and today that he is at high risk of HD which he understands
d/w nursing
labs in am
-
-
Date of Service: August 25, 2024
CC / HPI / ROS
-
Chief Complaint:
IVY with CKD
History of Present Illness:
Creatinine and BUN down to 2.3 and BUN unchanged at 128
wt down on 2lit of O2, off this am
afebrile
Remains on daptomycin
anemic-hgb stable 9.5
Review of Systems:
no cp
sob and cough improving
no n/v
Nonoliguric 2300 cc
Labs
-
Labs:
WBC 10.1 10^3/uL (4.8-10.8) 08/25/24 03:53
RBC 3.44 10^6/uL (4.70-6.10) L 08/25/24 03:53
Hgb 9.5 g/dL (13.0-18.0) L 08/25/24 03:53
Hct 28.8 % (39.0-52.0) L 08/25/24 03:53
Plt Count 357 10^3/uL (130-400) 08/25/24 03:53
Sodium 140 mmol/L (135-145) 12 03:53
Potassium 5.1 mmol/L (3.5-5.1) 08/25/24 03:53
Chloride 106 mmol/L (98-107) 08/25/24 03:53
Carbon Dioxide 26 mmol/L (22-30) 08/25/24 03:53
BUN 128 mg/dl (9-20) H* 08/25/24 03:53
Creatinine 2.3 mg/dL (0.7-1.3) H 08/25/24 03:53
eGFR 31.13 08/25/24 03:53
Glucose 199 mg/dl (70-99) H 08/25/24 03:53
Calcium 8.7 mg/dl (8.4-10.2) 08/25/24 03:53
Phosphorus 5.2 mg/dl (2.5-4.5) H 08/23/24 04:11
Ank-Z-Vydkdztcrpu Pept 6870 pg/ml 08/25/24 03:53
Albumin 2.5 g/dl (3.5-5.0) L 08/19/24 03:24
Physical Exam
-
Vital Signs:
Vital Signs
Temp Pulse Resp BP Pulse Ox
97.5 F 80 16 166/87 91
08/25/24 07:13 08/25/24 08:14 08/25/24 08:14 08/25/24 07:40 08/25/24 08:14
Cardiovascular:: Regular rate and rhythm
Respiratory:: Bilateral: CTA
Lung Excursion:: Normal
Abdomen:: Nontender and Soft
Extremity Edema:: +1: Left: and +2: Right:
Manzanares Catheter: No
--- NOTE | 2024-08-25 09:37 | PTCARENOTE ---
Patient downgraded to tele level. VSS. Pulse ox 95% on RA. OOB in chair. No complaints.
--- NOTE | 2024-08-25 10:08 | PTCARENOTE ---
Patient ambulatory to bathroom. Pulse ox 88% on RA. Once back in chair, slowly recovering to 91-92%.
--- NOTE | 2024-08-25 11:03 | W.PN.ID1 ---
Date of Service
Date of Service: August 25, 2024
Today's Communication
Sign off
Assessment / Plan
Fever
- Improved/resolved
Pneumonia
- s/p course of empiric meropenem
S/P COVID
- s/p molnupiravir/decadron; antigen testing negative x2
CKD4 - nephrotic range proteinuria
CHF
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
Recommendations:
-Status post 6-week course of daptomycin.
- Fevers have resolved. Current leukocytosis likely secondary to steroid effect.
- CK has remained normal
Little more to offer from a Infectious Diseases standpoint.
Will see again at your request.
����������������������������������������������������������
Chief Complaint
-: Fever, Leukocytosis and Pneumonia
Subjective / Review of Systems
Review of Systems: No Fever and No Chills
Vital Signs / Physical Exam
Vital Signs
Vital Signs
Temp Pulse Resp BP Pulse Ox
97.5 F 80 16 151/81 91
08/25/24 07:13 08/25/24 08:14 08/25/24 08:14 08/25/24 08:00 08/25/24 08:14
Physical Exam
Constitutional: No Acute Distress, Chronically Ill and Non-toxic
Eyes: Sclera Anicteric
Cardiovascular: Regular Rate and S1/S2; Negative S3/S4
Pulmonary: Non Labored
Gastrointestinal: Soft, Non Tender, Non Distended and Normal Bowel Sounds
Extremities: Negative Cyanosis or Erythema
Skin: Warm and Dry; Negative Rash or Jaundice
Wound: Other (Prior wound right foot now well-healed. No surrounding erythema.)
Neurological: Awake and Alert
Psychological: Calm
Lines: Other (midline)
Objective Data
Lab Data
Lab Results
08/25/24 03:53
08/25/24 03:53
PT 17.0 Sec (11.4-14.6) H 08/14/24 14:46
INR 1.33 08/14/24 14:46
APTT 40.0 Sec (23.4-35.0) H 08/14/24 14:46
Estimated Creat Clear 38 ml/min 08/25/24 03:53
Lactic Acid Cancelled 08/14/24 12:45
Total Bilirubin 0.4 mg/dl (0.2-1.3) 08/19/24 03:24
AST 18 U/L (17-59) 08/19/24 03:24
ALT 21 U/L (0-50) 08/19/24 03:24
Alkaline Phosphatase 133 U/L (38-126) H 08/19/24 03:24
C-Reactive Protein 28.20 mg/L (0.0-10.00) H 08/25/24 03:53
Most recent labs reviewed.
Micro Results:
08/17/24 12:53 Blood Culture - Final
Blood/Venous No Growth - Final Report
08/17/24 12:15 Blood Culture - Final
Blood/Venous No Growth - Final Report
08/17/24 15:21 Respiratory Culture - Final
Sputum Usual Respiratory Jyoti
Gram Stain - Final
08/14/24 09:25 Blood Culture - Final
Blood/Venous No Growth - Final Report
08/14/24 08:59 Blood Culture - Final
Blood/Venous No Growth - Final Report
08/16/24 03:56 Respiratory Culture - Final
Sputum Gram Stain - Final
08/15/24 03:17 MRSA Screen - Final
Nose No Methicillin Resistant Staphylococcus aureus isolated.
08/14/24 14:46 Influenza Types A & B (LAURA) - Final
Nasal Swab Negative for Influenza A & B, NAAT
Negative results must be combined with clinical observations
and patient history.
Nucleic Acid Amplification test (NAAT)performed on the
[employer] platform.
Imaging:
08/18/2024 CXR (2 view): Right upper extremity PICC line in place. Unchanged bibasilar consolidation, worse on the left. Increased diffuse interstitial opacity likely related to interstitial edema. Please see full dictation for additional detail.
Film personally viewed.
--- NOTE | 2024-08-25 11:20 | W.PN.PUL3 ---
Addendum entered and electronically signed by Juan F Ewing MD 08/25/24 11:30:
Transferred to telemetry.
Original Note:
Today's Communication / Plan
-
Transition to prednisone 40 mg, slow taper.
Discontinue budesonide
Continue DuoNebs while in the hospital for secretion clearance
Physical therapy/Occupational Therapy
Follow renal function-nephrology following
Oral diuretics
monitor off antibiotics
Oxygen has been weaned off
Pulmonary will continue to follow briefly.
Assessment
-
Patient is a 64-year-old male with previous history of hypertension, diabetes, chronic kidney disease presenting to ER with complaints of shortness of breath. He had recently been diagnosed with acute COVID illness 7 days prior. He had been
receiving IV antibiotic infusions for cellulitis of his left lower extremity. Was reportedly 84% on 5 L in ER, chest x-ray demonstrating bibasilar infiltrates with left greater than right. proBNP greater than 27,000, there is metabolic acidosis
with elevated creatinine. He is not currently on pressors, he is admitted to ICU for severe sepsis.
Impression:
Acute heart failure exacerbation, proBNP greater than 27,000
Severe sepsis, presumed co-morbid pneumonia
Interstitial lung disease with subpleural reticular opacities, traction bronchiectasis with bilateral GGO and consolidative opacities- suspected due to recent covid-19 pneumonia; DDx also includes OP
Recent COVID illness
Metabolic acidosis - resolved
Acute kidney injury on CKD (baseline Cr 1.7)
Hyperglycemia
Leukocytosis
Abnormal chest x-ray
Conditions present [employer]
History of MRSA cellulitis
CKD 4
IDDM
Nephrotic range proteinuria
Positive proteinase 3 antibodies
Hypertension
Chronic anemia
Left foot osteomyelitis treated with daptomycin
Anxiety
Plan
Oxygen supplementation has been weaned off. Pulse ox at rest 92-93%. 08/25/2024
Lung exam relatively clear-some crackles on the bases.
-
Prior history of lung disease: none, but has had recent history of CHF and COVID illness
He had CT chest this AM showing bilateral consolidative opacities with subpleural reticular opacities, GGO, and traction bronchiectasis (worse in the bases>apices) and small bilateral pleural effusions
- DDx for this includes organizing pneumonia vs [id number] ILD/pulmonary fibrosis in the setting of acute decompensated heart failure; bacterial pneumonia also contributing
-
- CRP level was 200.9 on 08/18/2024 --> CRP remains elevated at 233 --> he is clinically improved-discontinue IV Solu-Medrol 08/25/2024. Transition to 40 mg of prednisone. Slow taper in the outpatient setting. In the next several weeks.
- Maintain euglycemia with goal BG >100 and <180 while on high dose steroids; insulin gtt has been discontinued. Blood sugar should improve as steroids have been tapered down.
- trend CRP level-can be done in the outpatient setting
- DuoNebs QID-for secretion clearance while in the hospital.
-Discontinue Pulmicort nebulizers.
-
- ID correspondence reviewed. Patient has completed full course of antibiotics. They have signed off as of 08/25/2024.
Cardiac history reviewed--recent history of HFpEF, discharged 08/08/24
proBNP from 08/14/2024 >24713
Prior ECHO reviewed indicating preserved function
Cards eval obtained
Oral diuretics.
Monitor on telemetry
IVY present superimposed on CKD, baseline creatinine approximately 1.6�1.8
Renal following--recurrent volume issues, unclear candidacy for HD
Follow urine output and trend sCr; renally dose all meds/Abx
Continue to follow daily BMP
Fever and increased WBC on presentation, suspect post COVID bacterial PNA
Completed full course of meropenem.
He is clinically improved
All cultures negative.
Recent history of MRSA infection involving L-foot
PT/OT, OOB encouraged
From the pulmonary perspective seems to have improved.
Oxygen supplementation-has been weaned off.
Continue physical therapy/Occupational Therapy.
Patient looking forward to go home soon.
-
He will need ongoing outpatient pulmonary follow-up, will discharge on 40 mg of prednisone with a slow taper.
-
Will continue to follow briefly. He seems to be improving from the pulmonary perspective
Diagnostic Data
Chest X-Ray: 08/14/24- Findings suggesting moderate left upper and lower lobe and moderate right lower lobe pneumonia. Progressed.
CT Chest w/o contrast 08/18/2024:
1. Bilateral airspace, groundglass, and reticular opacities as described, most likely related to pneumonia. As above, these findings are most pronounced in the lingula and the right middle lobe. Very small bilateral pleural effusions.
2. Air-fluid level within the esophagus compatible with dysmotility or reflux.
3. Mild coronary and aortic atherosclerosis.
Echo: 07/10/2024:
1. Mild concentric LVH with EF 60-65%
2. Mild RVE
3. LAE
4. No evidence of significant valvular disease
Reports and relevant images were personally reviewed.
Subjective Data
-
Date of Service:
Date of Service: August 25, 2024
Chief Complaint: Pulmonary Follow Up
Subjective:
Patient states that he feels better.
Oxygen has been weaned off
Denies hemoptysis or phlegm production
He has been able to participate with physical therapy and ambulate.
Review of Systems
General: Fever (n)
Cardiopulmonary: Dyspnea (none a rest)
GI: Abdominal Pain (n) and Nausea (n)
Neuro: Headache (n)
Objective Data
Data Reviewed
Vital Signs / I&O / Oxygen:
Vital Signs
Temp Pulse Resp BP Pulse Ox
97.5 F 80 16 151/81 91
08/25/24 07:13 08/25/24 08:14 08/25/24 08:14 08/25/24 08:00 08/25/24 08:14
Intake and Output
08/24/24 08/25/24 08/26/24
06:59 06:59 06:59
Intake Total 690.0 / 698.0 642 / 642 120 / 120
Output Total 1600 / 1600 2500 / 2500 990 / 990
Balance -910.0 / -902.0 -1858 / -1858 -870 / -870
SaO2 91
Nasal Cannula flow liters per 3
minute
Physical Exam
General: Respiratory Distress (negative), Comfortable, Chills (negative), Sweats (negative) and Other (NAD)
HEENT: Normocephalic, Anicteric and Moist Mucous Membranes
Cardiovascular: S1-S2 and Peripheral Edema (+2 lower extremity pitting edema bilaterally)
Respiratory: Wheeze (negative), Rhonchi (Cooper in posterior right lower lobe), Non-Labored Respirations and Other (Coarse breath sounds heard bilaterally)
GI: Soft, Non Distended, Non Tender and Normal Bowel Sounds
Neurology: AO x 3 and Tremors (negative)
Skin: Warm, Dry, Cyanosis (negative) and Jaundice (negative)
Labs/Micro/Reports
Lab Data
08/25/24 03:53
08/25/24 03:53
Microbiology
08/17/24 12:53 Blood/Venous Blood Culture - Final
No Growth - Final Report
08/17/24 12:15 Blood/Venous Blood Culture - Final
No Growth - Final Report
[2024-08-25] MEDS: NOVOLOG FLEXPEN-HIGH RESISTANCE 1 UNITS SC ×2 (11:29→16:59)
[2024-08-25 11:41] LABS: Glucose - Point of Care 125 mg/dl (70-99)
--- NOTE | 2024-08-25 12:00 | PTCARENOTE ---
PICC removed by VAT.
[2024-08-25] MEDS: DUONEB INH (12:10)
[2024-08-25] MEDS: DELTASONE 40 MG PO (13:54)
--- NOTE | 2024-08-25 14:31 | CM ---
CM following re: discharge planning.
Reviewed pt's chart, met with pt. Pt requires 3L NC with saturation 95%, Bi-pap at HS, continue supportive care
PT and OT evaluations noted- home PT/OT recommended.
[facility] liaison following.
Pt completed 6-week course of daptomycin today.
Please fax discharge instructions to Sowmya FOSTER at [phone]
D/C plan: per pt's request, home with [facility] and family support.
CM will follow with discharge plan updates as hospitalization progresses
[2024-08-25] MEDS: NOVOLOG MIX 70/30 FLEXPEN 25 UNITS SC (17:00)
[2024-08-25 17:09] LABS: Glucose - Point of Care 126 mg/dl (70-99)
--- NOTE | 2024-08-25 18:06 | W.PN.HOSP.TC ---
Today's Communication/Plan
-
follow glu on insulin
Assessment / Plan
Assessment / Plan
Assessment:
Acute hypoxic respiratory failure
- weaned O2 now on room air with SaO2 92%
Acute heart failure exacerbation, proBNP greater than 27,000
- s/p IV Lasix course; now on oral Lasix per Nephrology
- Cardiology signed off
Severe sepsis, presumed co-morbid pneumonia
Interstitial lung disease with subpleural reticular opacities, traction bronchiectasis with bilateral GGO and consolidative opacities- suspected due to recent covid-19 pneumonia; DDx also includes OP
Recent COVID illness treated with Molnupiravir/steroids
- CT chest: Bilateral airspace, ground-glass, and reticular opacities as described, most likely related to pneumonia. As above, these findings are most pronounced in the lingula and the right middle lobe. Very small bilateral pleural effusions.
Air-fluid level within the esophagus compatible with dysmotility or reflux. Mild coronary and aortic atherosclerosis.
- CRP elevated; IV steroids started 08/19/24 now on oral Prednisone
- completed Meropenem course per ID.
Metabolic acidosis - resolved
Acute kidney injury on CKD stage 4 (baseline Cr 1.7) - multifactorial from sepsis, PNA, CHF
- monitor Cr daily; follow nephrology recs
- cont to hold lisinopril and avoid nephrotoxins
Steroid induced azotemia
History of MRSA cellulitis
IDDM
steroid induced hyperglycemia
- recent A1c 5.7%
- continue Basal/Bolus + SSI
- stopped regular insulin drip/hyperglycemia protocol and now on SQ insulin
follow glu. Was on insulin prior to admission
Nephrotic range proteinuria
Positive proteinase 3 antibodies
essential Hypertension
- holding JOSE
- continue Coreg
Chronic anemia
Left foot osteomyelitis treating outpatient with daptomycin
- course completed 08/25 per ID
Anxiety
- continue Ativan/Gabapentin
DVT ppx: SC Heparin
Code: Full
now transferred to tele
Anticipated Discharge: 24 - 48 hours
Subjective/Interval History
-
Date of Service: August 25, 2024
Looks remarkably better
Objective Data
-
Vital Signs:
Vital Signs
Temp Pulse Resp BP Pulse Ox
97.5 F 75 14 160/86 92
08/25/24 07:13 08/25/24 16:18 08/25/24 16:18 08/25/24 16:18 08/25/24 16:18
I&O
08/24/24 08/25/24 08/26/24
06:59 06:59 06:59
Intake Total 690.0 / 698.0 642 / 642 1080 / 1080
Output Total 1600 / 1600 2500 / 2500 1989 / 1989
Balance -910.0 / -902.0 -1858 / -1858 -910 / -910
Review of Systems
-
History Source: Patient and Coordinated Provider
Constitutional: Denies Fever
EENT: Reports No Symptoms Reported
Respiratory: Denies Trouble Breathing
Cardiac: Denies Chest Pain
Abdomen/GI: Reports No Symptoms
Physical Exam
-
General: Well Developed, Well Nourished and No Apparent Distress
HEENT: Atraumatic and Moist Mucous Membranes
Respiratory: Clear to Auscultation; Negative Wheezes, Rales or Rhonchi
Cardiac: Regular Rhythm and S1/S2
GI: Nontender and Nondistended
Musculoskeletal: No Clubbing, No Cyanosis and No Edema
--- NOTE | 2024-08-25 18:24 | PTCARENOTE ---
Patient ambulatory throughout unit with RW. Steady on feet. Pulse ox 88-89% once back in chair. Denies dyspnea. Quick to recover. Pulse ox currently 93%.
--- NOTE | 2024-08-25 19:45 | PTCARENOTE ---
Rec'd pt resting in bed, denies pain, C/o 'the jitters', accu 61- juice given, repeat 65- crackers & peanut butter givem repeat 81, 'feeling much better', NSR, + pulses + LE edema, RA, lungs decr in bases, sat 93, + bowel sounds, no bm, abd soft, no
n/v, voids in bathroom, amb ad jarret
[2024-08-25 19:55] LABS: Glucose - Point of Care 61 mg/dl (70-99)
[2024-08-25 20:12] LABS: Glucose - Point of Care 65 mg/dl (70-99)
[2024-08-25] MEDS: APRESOLINE 5 MG IV (20:25)
--- NOTE | 2024-08-25 20:27 | PTCARENOTE ---
apresoline 5mg iv given for elevated bp
[2024-08-25 20:30] LABS: Glucose - Point of Care 81 mg/dl (70-99)
[2024-08-25 22:03] LABS: Glucose - Point of Care 94 mg/dl (70-99)
--- NOTE | 2024-08-25 22:26 | PTCARENOTE ---
changed to bipap 08/21 by resp therapist
[2024-08-25 23:45] LABS: Glucose - Point of Care 125 mg/dl (70-99)
--- NOTE | 2024-08-25 23:54 | PTCARENOTE ---
sys reviewed, changes noted
[2024-08-26] VITALS (10 sets, daily range): BP systolic 141–176; BP diastolic 78–94; PULSE 2–89; BMI 22.2
[2024-08-26 03:19] LABS: Glucose - Point of Care 140 mg/dl (70-99)
--- NOTE | 2024-08-26 03:19 | PTCARENOTE ---
bipap off at pt request, accu 140
[2024-08-26 04:01] LABS: Blood Urea Nitrogen 127 mg/dl (9-20); Calcium 8.7 mg/dl (8.4-10.2); Carbon Dioxide 23 mmol/L (22-30); Chloride 106 mmol/L (98-107); Estimated Creatinine Clearance 38 ml/min; Glucose 138 mg/dl (70-99); Potassium 5.4 mmol/L (3.5-5.1); Sodium 139 mmol/L (135-145); eGFR 31.13
[2024-08-26] MEDS: DUONEB 3 ML INH ×3 (07:08→20:12)
[2024-08-26] MEDS: DELTASONE 40 MG PO (07:45)
[2024-08-26] MEDS: ATIVAN 1 MG PO ×3 (07:45→20:53)
[2024-08-26] MEDS: NEURONTIN 300 MG PO ×2 (07:45→20:52)
[2024-08-26] MEDS: WELLBUTRIN SR (12 hour sustained release) 150 MG PO ×2 (07:45→20:52)
[2024-08-26] MEDS: LASIX 40 MG PO (07:45)
[2024-08-26] MEDS: FLOMAX 0.4 MG PO (07:45)
[2024-08-26] MEDS: COREG 12.5 MG PO ×2 (07:45→20:52)
[2024-08-26 07:46] LABS: Glucose - Point of Care 233 mg/dl (70-99)
[2024-08-26] MEDS: HEPARIN 5000 UNITS SC ×3 (07:46→23:37)
[2024-08-26] MEDS: NOVOLOG FLEXPEN-HIGH RESISTANCE 4 UNITS SC (07:50)
--- NOTE | 2024-08-26 08:16 | PN.DE.MGMTRT ---
Insulin Management
- -
08/26/2024 Diabetes Management Follow up:
Patient admitted with increasing weakness and SOB due to Acute hypoxic Resp Failure. Pt was recently d/c'd after hospitalization for LE Cellulitis, COVID-19 pneumonia and HFpEF a couple days ago. PMH: HTN, HLD, Severe Peripheral Neuropathy, CKD
III, Lumbar DDD, Anxiety /Depression, MRSA bacteremia with left foot Osteomyelitis (on daptomycin), HFpEF and T2DM.
Recent A1C was 5.7% on 07/10/24, had been 14.1% in 10/2023. Pt is not a good historian, states he takes 75/25 but doesn't take a standard dose, he reports taking his insulin on a SS, ~ 10-25 units in the morning and no other insulin or diabetes
medications. He has a monitor and checks his blood sugars 3x/day.
Pt awake, alert, sitting up in chair on O2, complains about lack of juice and food for hypoglycemia. Able to discuss diabetes management.
08/25 Premeal glucose 125 to 214. Home regimen of premixed insulin resumed with dinner, glucose @ hs 61/65/81.
08/26 Will reduce dinner 70/30 to 22 units, AM dose resumed to 25 units with breakfast. Reduce high corrective to low corrective.
Will follow for further needed adjustments if needed
Pt has a working glucose meter at home.
Discussed with nurse.
Diabetes History
- -
Type of Diabetes: 2 requiring insulin
Pre-Admission Diabetes Regimen
08/26/24
03:12
Creatinine 2.3 H
Insulin Pump Settings
IP Diabetes Regimen
08/25/24 08/25/24 08/25/24
11:28 16:58 19:44
Glucose
POC Glucose 125 H 126 H 61 L
08/25/24 08/25/24 08/25/24
20:01 20:18 21:51
Glucose
POC Glucose 65 L 81 94
08/25/24 08/26/24 08/26/24
23:34 03:09 03:12
Glucose 138 H
POC Glucose 125 H 140 H
08/26/24
07:34
Glucose
POC Glucose 233 H
Meal type: Lunch
Amount consumed: 100%
Patient Education
[2024-08-26] MEDS: NOVOLOG MIX 70/30 FLEXPEN SC (08:47)
[2024-08-26] MEDS: NOVOLOG MIX 70/30 FLEXPEN 22 UNITS SC ×2 (08:57→17:11)
--- NOTE | 2024-08-26 09:13 | W.PN.NEPH.PH ---
Today's Communication / Plan
-
Hold further Lasix
Follow BMP
Utilize Lokelma as needed for hyperkalemia
Assessment/Plan
-
Impression:
Severe sepsis, presumed pneumonia
Acute hypoxic respiratory failure
Acute on chr DCHF
Resolved COVID
CKD4 baseline high 2 range
Metabolic acidosis
Anemia
Left Foot osteomyelitis
HTN
+PR3 Ab
Nephrotic range proteinuria of 5 g, biopsy-proven diabetic nephropathy
07/21/24: K biopsy nodular D nephropathy
IFTA mod to severe
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
Plan:
IVY-likely multifactorial, with sepsis, CHF,PNA
cr down to 2.3 but persistent azotemia with BUN of 127 (remains on steroids)
non oliguric off manzanares-but requiring SC , urine output 2400 cc
hold further lasix today.discussed with pulmonary (favors less CHF etiology)
Pt has h/o retention in the past -low threshold to place manzanares and will likely need eval out pt, on flomax
no emergent indication of HD
monitor for uremia symptoms-none so far
dose meds renally
BP increasing trend likely from steroids -increase BB dose 08/23, likely resume ACEI soon once azotemia improves
follow h/h-stable,
We have reviewed multiple occasions and today that he is at high risk of HD which he understands
d/w nursing
labs in am
-
-
Date of Service: August 26, 2024
CC / HPI / ROS
-
Chief Complaint:
IVY with CKD
History of Present Illness:
Creatinine and BUN down to 2.3 and BUN unchanged at 127
wt down on 2lit of O2, off this am
afebrile
Remains on daptomycin
anemic-hgb stable 9.5
Review of Systems:
no cp
sob and cough improving
no n/v
Nonoliguric 2500 cc
Weights unchanged
Labs
-
Labs:
WBC 10.1 10^3/uL (4.8-10.8) 08/25/24 03:53
RBC 3.44 10^6/uL (4.70-6.10) L 08/25/24 03:53
Hgb 9.5 g/dL (13.0-18.0) L 08/25/24 03:53
Hct 28.8 % (39.0-52.0) L 08/25/24 03:53
Plt Count 357 10^3/uL (130-400) 08/25/24 03:53
Sodium 139 mmol/L (135-145) 08/26/24 03:12
Potassium 5.4 mmol/L (3.5-5.1) H 08/26/24 03:12
Chloride 106 mmol/L (98-107) 08/26/24 03:12
Carbon Dioxide 23 mmol/L (22-30) 08/26/24 03:12
BUN 127 mg/dl (9-20) H* 08/26/24 03:12
Creatinine 2.3 mg/dL (0.7-1.3) H 08/26/24 03:12
eGFR 31.13 08/26/24 03:12
Glucose 138 mg/dl (70-99) H 08/26/24 03:12
Calcium 8.7 mg/dl (8.4-10.2) 08/26/24 03:12
Phosphorus 5.2 mg/dl (2.5-4.5) H 08/23/24 04:11
Zrn-E-Esktzerajhr Pept 6870 pg/ml 08/25/24 03:53
Albumin 2.5 g/dl (3.5-5.0) L 08/19/24 03:24
Physical Exam
-
Vital Signs:
Vital Signs
Temp Pulse Resp BP Pulse Ox
97.6 F 93 14 176/94 94
08/26/24 08:39 08/26/24 08:00 08/26/24 07:12 08/26/24 08:00 08/26/24 08:00
Cardiovascular:: Regular rate and rhythm
Respiratory:: Bilateral: CTA
Lung Excursion:: Normal
Abdomen:: Nontender and Soft
Extremity Edema:: +1: Left: and +2: Right:
Manzanares Catheter: No
--- NOTE | 2024-08-26 10:29 | W.PN.PUL3 ---
Today's Communication / Plan
-
Prednisone taper as above
Increase activity as able
Physical therapy
Outpatient pulmonary follow-up
Sign off
Assessment
-
Patient is a 64-year-old male with previous history of hypertension, diabetes, chronic kidney disease presenting to ER with complaints of shortness of breath. He had recently been diagnosed with acute COVID illness 7 days prior. He had been
receiving IV antibiotic infusions for cellulitis of his left lower extremity. Was reportedly 84% on 5 L in ER, chest x-ray demonstrating bibasilar infiltrates with left greater than right. proBNP greater than 27,000, there is metabolic acidosis
with elevated creatinine. He is not currently on pressors, he is admitted to ICU for severe sepsis.
Impression:
Acute heart failure exacerbation, proBNP greater than 27,000
Severe sepsis, presumed co-morbid pneumonia
Interstitial lung disease with subpleural reticular opacities, traction bronchiectasis with bilateral GGO and consolidative opacities- suspected due to recent covid-19 pneumonia; DDx also includes OP
Recent COVID illness
Metabolic acidosis - resolved
Acute kidney injury on CKD (baseline Cr 1.7)
Hyperglycemia
Leukocytosis
Abnormal chest x-ray
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
History of MRSA cellulitis
CKD 4
IDDM
Nephrotic range proteinuria
Positive proteinase 3 antibodies
Hypertension
Chronic anemia
Left foot osteomyelitis treated with daptomycin
Anxiety
Plan
From the respiratory perspective he is clinically improved.
No longer requiring supplemental oxygen
Lung exam relatively clear other than mild bibasilar crackles.
-
Prior history of lung disease: none, but has had recent history of CHF and COVID illness
He had CT chest this AM showing bilateral consolidative opacities with subpleural reticular opacities, GGO, and traction bronchiectasis (worse in the bases>apices) and small bilateral pleural effusions
- DDx for this includes organizing pneumonia vs [id number] inflammatory scarring/pulmonary fibrosis in the setting of acute decompensated heart failure; bacterial pneumonia also contributing.
No longer appears volume overload 08/26/2024.
-
- CRP level was 200.9 on 08/18/2024 --> CRP remains elevated at 233 --> he is clinically improved-discontinue IV Solu-Medrol 08/25/2024. Transition to 40 mg of prednisone. Slow taper in the outpatient setting. Continue 40 mg for additional 7 days
and then decrease to 30 mg for 7 days and then 20 mg until seen in our office.
- Maintain euglycemia with goal BG >100 and <180 while on high dose steroids; insulin gtt has been discontinued. Blood sugar should improve as steroids have been tapered down.
- trend CRP level-can be done in the outpatient setting
- DuoNebs QID-for secretion clearance while in the hospital.
-Discontinued Pulmicort nebulizers. Not bronchospastic
. Patient able to clear secretions.
-
- ID correspondence reviewed. Patient has completed full course of antibiotics. They have signed off as of 08/25/2024.
Cardiac history reviewed--recent history of HFpEF, discharged 08/08/24
proBNP from 08/14/2024 >[id number]
Prior ECHO reviewed indicating preserved function
Cards eval obtained
Oral diuretics.
Monitor on telemetry
IVY present superimposed on CKD, baseline creatinine approximately 1.6�1.8
BUN>100
Renal following--no longer does appear significantly volume overloaded.
Chest x-ray 08/26/2024 reviewed,: Increased reticulonodular markings within the mid and lower lobes bilaterally improving. No pleural effusion. Suggest postinflammatory fibrosis is clinically improved
Oral diuretics.
Fever and increased WBC on presentation, suspect post COVID bacterial PNA
Completed full course of meropenem.
He is clinically improved
All cultures negative.
Recent history of MRSA infection involving S-llkd-yvswjqcyw antibiotics
PT/OT, OOB encouraged
No ambulatory oxygen desaturation.
From the pulmonary perspective seems to have improved.
Oxygen supplementation-has been weaned off.
Continue physical therapy/Occupational Therapy.
Patient looking forward to go home soon.
-
He will need ongoing outpatient pulmonary follow-up, will discharge on 40 mg of prednisone with a slow taper.
-
No additional recommendation from the pulmonary perspective.
Outpatient pulmonary follow-up. Information has been left in the chart. He will need radiographic follow-up and pulmonary function testing.
Hopefully discharge soon
Sign off

Diagnostic Data
Chest X-Ray: 08/14/24- Findings suggesting moderate left upper and lower lobe and moderate right lower lobe pneumonia. Progressed.
CT Chest w/o contrast 08/18/2024:
1. Bilateral airspace, groundglass, and reticular opacities as described, most likely related to pneumonia. As above, these findings are most pronounced in the lingula and the right middle lobe. Very small bilateral pleural effusions.
2. Air-fluid level within the esophagus compatible with dysmotility or reflux.
3. Mild coronary and aortic atherosclerosis.
Echo: 07/10/2024:
1. Mild concentric LVH with EF 60-65%
2. Mild RVE
3. LAE
4. No evidence of significant valvular disease
Reports and relevant images were personally reviewed.
Subjective Data
-
Date of Service:
Date of Service: August 26, 2024
Chief Complaint: Pulmonary Follow Up
Subjective:
No new complaints
Was able to ambulate with physical therapy
Remains off oxygen
No significant phlegm production
Review of Systems
General: Fever (n)
Cardiopulmonary: Dyspnea (improved)
GI: Nausea (n) and Vomiting (n)
Neuro: Headache (n)
Objective Data
Data Reviewed
Vital Signs / I&O / Oxygen:
Vital Signs
Temp Pulse Resp BP Pulse Ox
97.6 F 93 14 176/94 94
08/26/24 08:39 08/26/24 08:00 08/26/24 07:12 08/26/24 08:00 08/26/24 08:00
Intake and Output
08/25/24 08/26/24 08/27/24
06:59 06:59 06:59
Intake Total 642 / 642 1530 / 1530
Output Total 2500 / 2500 2790 / 2790
Balance -1858 / -1858 -1260 / -1260
SaO2 94
Nasal Cannula flow liters per 3
minute
Physical Exam
General: Respiratory Distress (negative), Comfortable, Chills (negative), Sweats (negative) and Other (NAD)
HEENT: Normocephalic, Anicteric and Moist Mucous Membranes
Cardiovascular: S1-S2 and Peripheral Edema (+2 lower extremity pitting edema bilaterally)
Respiratory: Wheeze (negative), Rhonchi ([place] in posterior right lower lobe), Non-Labored Respirations and Other (Coarse breath sounds heard bilaterally)
GI: Soft, Non Distended, Non Tender and Normal Bowel Sounds
Neurology: AO x 3 and Tremors (negative)
Skin: Warm, Dry, Cyanosis (negative) and Jaundice (negative)
Labs/Micro/Reports
Lab Data
08/25/24 03:53
08/26/24 03:12
[2024-08-26] MEDS: DUONEB INH (11:42)
[2024-08-26] MEDS: NOVOLOG FLEXPEN-LOW RESISTANCE 2 UNITS SC (11:59)
[2024-08-26 12:08] LABS: Glucose - Point of Care 223 mg/dl (70-99)
--- NOTE | 2024-08-26 14:19 | CM ---
CM following re: discharge planning.
Reviewed pt's chart, met with pt. Pt on RA, Bi-pap at HS, continue supportive care
PT and OT evaluations noted- home PT/OT recommended.
[facility]ST[facility] liaison following.
Please fax discharge instructions to Sowmya FOSTER at [phone]
D/C plan: per pt's request, home with [facility] and family support.
CM will follow with discharge plan updates as hospitalization progresses
--- NOTE | 2024-08-26 15:56 | PTCARENOTE ---
late note due to pt care.
received pt from ICU. AOx3, no complaints of pain or discomfort. Standby assist OOB. SR on tele monitor. Oriented to room and unit, call peters within reach.
[2024-08-26 16:35] LABS: Glucose - Point of Care 270 mg/dl (70-99)
--- NOTE | 2024-08-26 16:54 | W.PN.HOSP.TC ---
Today's Communication/Plan
-
Lasix on hold. Balancing renal fxn and edema will be deferred to nephrology
decrease Prednisone to 30 mg daily
Assessment / Plan
Assessment / Plan
Assessment:
Acute hypoxic respiratory failure
- weaned O2 now on room air with SaO2 92%
Acute heart failure exacerbation, proBNP greater than 27,000
- s/p IV Lasix course; now on oral Lasix per Nephrology
- Cardiology signed off
Severe sepsis, presumed co-morbid pneumonia, PNA following Covid
Interstitial lung disease with subpleural reticular opacities, traction bronchiectasis with bilateral GGO and consolidative opacities- suspected due to recent covid-19 pneumonia; DDx also includes OP
Recent COVID illness treated with Molnupiravir/steroids
- CT chest: Bilateral airspace, ground-glass, and reticular opacities as described, most likely related to pneumonia. As above, these findings are most pronounced in the lingula and the right middle lobe. Very small bilateral pleural effusions.
Air-fluid level within the esophagus compatible with dysmotility or reflux. Mild coronary and aortic atherosclerosis.
- CRP elevated; IV steroids started 08/19/24 now on oral Prednisone, will decrease Pred to 30 mg daily, no wheeze appreciated
- completed Meropenem course per ID.
Metabolic acidosis - resolved
Acute kidney injury on CKD stage 4 (baseline Cr 1.7) - multifactorial from sepsis, PNA, CHF
- monitor Cr daily; follow nephrology recs
- cont to hold lisinopril and avoid nephrotoxins
BUN/Creat 127/2.3
Lasix placed on hold by nephrology
Steroid induced azotemia
History of MRSA cellulitis
IDDM
steroid induced hyperglycemia
- recent A1c 5.7%
- continue Basal/Bolus + SSI
- stopped regular insulin drip/hyperglycemia protocol and now on SQ insulin
follow glu. Was on insulin prior to admission
Nephrotic range proteinuria
Positive proteinase 3 antibodies
essential Hypertension
- holding JOSE
- continue Coreg
Chronic anemia
Left foot osteomyelitis treating outpatient with daptomycin
- course completed 08/25 per ID
Anxiety
- continue Ativan/Gabapentin
DVT ppx: SC Heparin
Code: Full
now transferred to tele
Anticipated Discharge: > 48 hours
Subjective/Interval History
-
Date of Service: August 26, 2024
Sitting up in chair, looks better
Objective Data
-
Vital Signs:
Vital Signs
Temp Pulse Resp BP Pulse Ox
97.3 F 78 18 166/85 95
08/26/24 15:48 08/26/24 15:48 08/26/24 15:48 08/26/24 15:48 08/26/24 15:48
I&O
08/25/24 08/26/24 08/27/24
06:59 06:59 06:59
Intake Total 642 / 642 1530 / 1530
Output Total 2500 / 2500 2790 / 2790
Balance -1858 / -1858 -1260 / -1260
Review of Systems
-
History Source: Patient and Coordinated Provider
Constitutional: Denies Fever
EENT: Reports No Symptoms Reported
Respiratory: Denies Trouble Breathing
Cardiac: Denies Chest Pain
Abdomen/GI: Reports No Symptoms
Physical Exam
-
General: Well Developed, Well Nourished and No Apparent Distress
HEENT: Atraumatic and Moist Mucous Membranes
Respiratory: Clear to Auscultation; Negative Wheezes, Rales or Rhonchi
Cardiac: Regular Rhythm and S1/S2
GI: Nontender and Nondistended
Musculoskeletal: No Clubbing, No Cyanosis, Edema, Right Lower Extrem (2+) and Edema, Left Lower Extrem (2+)
[2024-08-26] MEDS: NOVOLOG FLEXPEN-LOW RESISTANCE 3 UNITS SC (17:11)
[2024-08-26 22:05] LABS: Glucose - Point of Care 149 mg/dl (70-99)
[2024-08-27] VITALS (8 sets, daily range): BP systolic 142–172; BP diastolic 77–89; PULSE 2–81; O2SAT 93
[2024-08-27] MEDS: DUONEB 3 ML INH ×3 (07:14→20:12)
--- NOTE | 2024-08-27 07:26 | PN.DE.MGMTRT ---
Insulin Management
- -
08/27/2024 Diabetes Management Follow up:
Patient admitted with increasing weakness and SOB due to Acute hypoxic Resp Failure. Pt was recently d/c'd after hospitalization for LE Cellulitis, COVID-19 pneumonia and HFpEF a couple days ago. PMH: HTN, HLD, Severe Peripheral Neuropathy, CKD
III, Lumbar DDD, Anxiety /Depression, MRSA bacteremia with left foot Osteomyelitis (on daptomycin), HFpEF and T2DM.
Recent A1C was 5.7% on 07/10/24, had been 14.1% in 10/2023. Pt is not a good historian, states he takes 75/25 but doesn't take a standard dose, he reports taking his insulin on a SS, ~ 10-25 units in the morning and no other insulin or diabetes
medications. He has a monitor and checks his blood sugars 3x/day.
08/25 Premeal glucose 125 to 214. Home regimen of premixed insulin resumed with dinner, glucose @ 61/65/81.
08/26 Reduced dinner 70/30 to 22 units, AM dose resumed to 25 units with breakfast. Reduced high corrective to low corrective.
08/27 Prednisone has been reduced to 30 mg, Glucose yesterday trended 233 to 270 pre meal. Fasting glucose 140 this AM. Will make no change to 70/30, 25 units in AM and 22 units with dinner, today as steroids are being tapered. Will follow for
further needed adjustments if needed
Pt has a working glucose meter at home.
Diabetes History
- -
Type of Diabetes: 2 requiring insulin
Pre-Admission Diabetes Regimen
Insulin Pump Settings
IP Diabetes Regimen
08/26/24 08/26/24 08/26/24
07:34 11:56 16:33
POC Glucose 233 H 223 H 270 H
08/26/24
22:03
POC Glucose 149 H
Meal type: Breakfast
Amount consumed: 100%
Patient Education
[2024-08-27 07:36] LABS: Glucose - Point of Care 140 mg/dl (70-99)
[2024-08-27] MEDS: DELTASONE 30 MG PO (09:03)
[2024-08-27] MEDS: WELLBUTRIN SR (12 hour sustained release) 150 MG PO ×2 (09:03→20:50)
[2024-08-27] MEDS: NOVOLOG FLEXPEN-LOW RESISTANCE SC ×2 (09:03→12:20)
[2024-08-27] MEDS: HEPARIN 5000 UNITS SC ×2 (09:04→15:51)
[2024-08-27] MEDS: FLOMAX 0.4 MG PO (09:04)
[2024-08-27] MEDS: ATIVAN 1 MG PO ×3 (09:04→20:50)
[2024-08-27] MEDS: COREG 12.5 MG PO ×2 (09:04→20:44)
[2024-08-27] MEDS: NEURONTIN 300 MG PO ×2 (09:04→20:44)
[2024-08-27] MEDS: NOVOLOG MIX 70/30 FLEXPEN 25 UNITS SC (09:06)
[2024-08-27 09:38] LABS: Blood Urea Nitrogen 109 mg/dl (9-20); Calcium 8.7 mg/dl (8.4-10.2); Carbon Dioxide 22 mmol/L (22-30); Chloride 106 mmol/L (98-107); Estimated Creatinine Clearance 38 ml/min; Glucose 135 mg/dl (70-99); Potassium 4.9 mmol/L (3.5-5.1); Sodium 136 mmol/L (135-145); eGFR 31.13
[2024-08-27] MEDS: DUONEB INH (11:33)
[2024-08-27 11:55] LABS: Glucose - Point of Care 47 mg/dl (70-99)
[2024-08-27 12:14] LABS: Glucose - Point of Care 41 mg/dl (70-99)
[2024-08-27] MEDS: DEXTROSE 50% SYRINGE 12.5 GRAMS IV (12:14)
[2024-08-27 12:34] LABS: Glucose - Point of Care 108 mg/dl (70-99)
--- NOTE | 2024-08-27 14:00 | W.PN.NEPH.PH ---
Today's Communication / Plan
-
Follow BMP
Assessment/Plan
-
Impression:
Severe sepsis, presumed pneumonia
Acute hypoxic respiratory failure
Acute on chr DCHF
Resolved COVID
CKD4 baseline high 2 range
Metabolic acidosis
Anemia
Left Foot osteomyelitis
HTN
+PR3 Ab
Nephrotic range proteinuria of 5 g, biopsy-proven diabetic nephropathy
07/21/24: K biopsy nodular D nephropathy
IFTA mod to severe
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
Plan:
Follow BMP
Weaning steroids
Daptomycin course
So long as creatinine remains stable if BUN continues to improve DC planning is possible from a renal standpoint
Off Lasix and lisinopril for now
-
-
Date of Service: August 27, 2024
CC / HPI / ROS
-
Chief Complaint:
IVY with CKD
History of Present Illness:
Creatinine stable at 2.3
BUN down to 109
afebrile
Remains on daptomycin
anemic-hgb stable
Review of Systems:
no cp
sob and cough improving
no n/v
Labs
-
Labs:
WBC 10.1 10^3/uL (4.8-10.8) 08/25/24 03:53
RBC 3.44 10^6/uL (4.70-6.10) L 08/25/24 03:53
Hgb 9.5 g/dL (13.0-18.0) L 08/25/24 03:53
Hct 28.8 % (39.0-52.0) L 08/25/24 03:53
Plt Count 357 10^3/uL (130-400) 08/25/24 03:53
Sodium 136 mmol/L (135-145) 08/27/24 07:44
Potassium 4.9 mmol/L (3.5-5.1) 08/27/24 07:44
Chloride 106 mmol/L (98-107) 08/27/24 07:44
Carbon Dioxide 22 mmol/L (22-30) 08/27/24 07:44
BUN 109 mg/dl (9-20) H* 08/27/24 07:44
Creatinine 2.3 mg/dL (0.7-1.3) H 08/27/24 07:44
eGFR 31.13 08/27/24 07:44
Glucose 135 mg/dl (70-99) H 08/27/24 07:44
Calcium 8.7 mg/dl (8.4-10.2) 08/27/24 07:44
Phosphorus 5.2 mg/dl (2.5-4.5) H 08/23/24 04:11
Qec-A-Kfxjzvnfrkc Pept 6870 pg/ml 08/25/24 03:53
Albumin 2.5 g/dl (3.5-5.0) L 08/19/24 03:24
Physical Exam
-
Vital Signs:
Vital Signs
Temp Pulse Resp BP Pulse Ox
97.4 F 70 20 172/86 93
08/27/24 11:42 08/27/24 11:42 08/27/24 11:42 08/27/24 11:42 08/27/24 11:42
Cardiovascular:: Regular rate and rhythm
Respiratory:: Bilateral: Coarse
Lung Excursion:: Normal
Abdomen:: Nontender and Soft
Bowel Sounds:: Normal
Extremity Edema:: +3: Bilateral:
[2024-08-27 16:47] LABS: Glucose - Point of Care 207 mg/dl (70-99)
[2024-08-27] MEDS: NOVOLOG MIX 70/30 FLEXPEN 22 UNITS SC (17:25)
[2024-08-27] MEDS: NOVOLOG FLEXPEN-LOW RESISTANCE 2 UNITS SC (17:26)
--- NOTE | 2024-08-27 18:31 | W.PN.HOSP.TC ---
Today's Communication/Plan
-
follow glu closely
wean insulin as steroids weaned, though complicating aspect is the azotemia which appears to be improving
Assessment / Plan
Assessment / Plan
Assessment:
Acute hypoxic respiratory failure
- weaned O2 now on room air with SaO2 92%
Acute heart failure exacerbation, proBNP greater than 27,000
- s/p IV Lasix course; now on oral Lasix per Nephrology
- Cardiology signed off
Severe sepsis, presumed co-morbid pneumonia, PNA following Covid
Interstitial lung disease with subpleural reticular opacities, traction bronchiectasis with bilateral GGO and consolidative opacities- suspected due to recent covid-19 pneumonia; DDx also includes OP
Recent COVID illness treated with Molnupiravir/steroids
- CT chest: Bilateral airspace, ground-glass, and reticular opacities as described, most likely related to pneumonia. As above, these findings are most pronounced in the lingula and the right middle lobe. Very small bilateral pleural effusions.
Air-fluid level within the esophagus compatible with dysmotility or reflux. Mild coronary and aortic atherosclerosis.
- CRP elevated; IV steroids started 08/19/24 now on oral Prednisone, will decrease Pred to 30 mg daily, no wheeze appreciated
- completed Meropenem course per ID.
Metabolic acidosis - resolved
Acute kidney injury on CKD stage 4 (baseline Cr 1.7) - multifactorial from sepsis, PNA, CHF. Showing some improvement
- monitor Cr daily; follow nephrology recs
- cont to hold lisinopril and avoid nephrotoxins
BUN/Creat 127/2.3-->109/2.3
Lasix placed on hold by nephrology
Steroid induced azotemia
History of MRSA cellulitis
IDDM
steroid induced hyperglycemia
- recent A1c 5.7%
- continue Basal/Bolus + SSI
- stopped regular insulin drip/hyperglycemia protocol and now on SQ insulin. Has been seen by Lili Edwards, adaptive physical educator and she has adjusted the insulin. Will follow glu closely, may need further tapering of insulin as Prednisone is reduced
follow glu. Was on insulin prior to admission
Nephrotic range proteinuria
Positive proteinase 3 antibodies
essential Hypertension
- holding JOSE
- continue Coreg
Chronic anemia
Left foot osteomyelitis treating outpatient with daptomycin
- course completed 08/25 per ID
Anxiety
- continue Ativan/Gabapentin
DVT ppx: SC Heparin
Code: Full
now transferred to tele
Anticipated Discharge: > 48 hours
Subjective/Interval History
-
Date of Service: August 27, 2024
Awake, alert, episode of hypoglycemia earlier today
Objective Data
-
Labs:
Laboratory Results
08/27/24
07:44
Sodium 136
Potassium 4.9
Chloride 106
Carbon Dioxide 22
BUN 109 H*
Creatinine 2.3 H
Glucose 135 H
Calcium 8.7
Vital Signs:
Vital Signs
Temp Pulse Resp BP Pulse Ox
97.8 F 80 16 142/77 95
08/27/24 15:00 08/27/24 15:00 08/27/24 15:32 08/27/24 15:00 08/27/24 15:32
I&O
08/26/24 08/27/24 08/28/24
06:59 06:59 06:59
Intake Total 1530 / 1530 1200 / 1200 840 / 840
Output Total 2790 / 2790
Balance -1260 / -1260 1200 / 1200 840 / 840
Review of Systems
-
History Source: Patient and Coordinated Provider
Constitutional: Denies Fever
EENT: Reports No Symptoms Reported
Respiratory: Denies Trouble Breathing
Cardiac: Denies Chest Pain
Abdomen/GI: Reports No Symptoms
Physical Exam
-
General: Well Developed, Well Nourished and No Apparent Distress
HEENT: Atraumatic and Moist Mucous Membranes
Respiratory: Clear to Auscultation; Negative Wheezes, Rales or Rhonchi
Cardiac: Regular Rhythm and S1/S2
GI: Nontender and Nondistended
Musculoskeletal: No Clubbing, No Cyanosis, Edema, Right Lower Extrem (2+) and Edema, Left Lower Extrem (2+)
[2024-08-27 22:05] LABS: Glucose - Point of Care 224 mg/dl (70-99)
[2024-08-28] VITALS (7 sets, daily range): BP systolic 152–178; BP diastolic 76–92; PULSE 2–77
[2024-08-28] MEDS: HEPARIN 5000 UNITS SC ×4 (00:57→23:03)
[2024-08-28 03:44] LABS: Glucose - Point of Care 184 mg/dl (70-99)
[2024-08-28] MEDS: APRESOLINE 5 MG IV (04:01)
--- NOTE | 2024-08-28 07:22 | PN.DE.MGMTRT ---
Insulin Management
- -
08/28/2024 Diabetes Management Follow up:
Patient admitted with increasing weakness and SOB due to Acute hypoxic Resp Failure. Pt was recently d/c'd after hospitalization for LE Cellulitis, COVID-19 pneumonia and HFpEF a couple days ago. PMH: HTN, HLD, Severe Peripheral Neuropathy, CKD
III, Lumbar DDD, Anxiety /Depression, MRSA bacteremia with left foot Osteomyelitis (on daptomycin), HFpEF and T2DM.
Recent A1C was 5.7% on 07/10/24, had been 14.1% in 10/2023. Pt is not a good historian, states he takes 75/25 but doesn't take a standard dose, he reports taking his insulin on a SS, ~ 10-25 units in the morning and no other insulin or diabetes
medications. He has a monitor and checks his blood sugars 3x/day.
08/27 Prednisone has been reduced to 30 mg, Glucose yesterday trended 233 to 270 pre meal. Fasting glucose 140 this AM. Will make no change to 70/30, 25 units in AM and 22 units with dinner, today as steroids are being tapered.
08/28 Patient is awake alert and oriented, able to discuss diabetes management. States he had more exercise than usual which most likely contributed to hypoglycemia pre lunch. I did request he start to add protein at breakfast as his meal was
oatmeal wolof toast and grapes. Hypoglycemia pre lunch, 47. Will reduce AM dose of 70/30 to 22 units and continue 22 units 70/30 with dinner with low corrective. Will follow for further needed adjustments if needed
Pt has a working glucose meter at home.
Discussed with nurse.
Diabetes History
- -
Type of Diabetes: 2 requiring insulin
Pre-Admission Diabetes Regimen
08/27/24
07:44
Creatinine 2.3 H
Insulin Pump Settings
IP Diabetes Regimen
08/27/24 08/27/24 08/27/24
07:34 07:44 11:53
Glucose 135 H
POC Glucose 140 H 47 L*
08/27/24 08/27/24 08/27/24
12:12 12:32 16:45
Glucose
POC Glucose 41 L* 108 H 207 H
08/27/24 08/28/24
22:03 03:42
Glucose
POC Glucose 224 H 184 H
Meal type: Dinner
Meal type: Lunch
Amount consumed: 100%
Amount consumed: 100%
Patient Education
[2024-08-28 07:26] LABS: Glucose - Point of Care 144 mg/dl (70-99)
[2024-08-28] MEDS: DUONEB 3 ML INH ×4 (07:53→20:02)
[2024-08-28 08:49] LABS: Hematocrit 30.4 % (39.0-52.0); Hemoglobin 9.7 g/dL (13.0-18.0); Mean Corp Hgb Conc. 31.9 g/dL (33.0-37.0); Mean Corpuscular Hgb 26.9 pg (27.0-31.0); Mean Corpuscular Volume 84.2 fL (80.0-94.0); Mean Platelet Volume 9.9 fL (7.4-10.4); Platelet Count 376 10^3/uL (130-400); Red Blood Cell Count 3.61 10^6/uL (4.70-6.10); Red Cell Dist. Width 16.9 % (11.5-14.5); White Blood Cell Count 7.7 10^3/uL (4.8-10.8)
[2024-08-28] MEDS: NOVOLOG FLEXPEN-LOW RESISTANCE SC ×2 (09:06→12:49)
[2024-08-28] MEDS: NOVOLOG MIX 70/30 FLEXPEN 22 UNITS SC ×2 (09:14→17:51)
[2024-08-28] MEDS: ATIVAN 1 MG PO ×3 (09:15→21:04)
[2024-08-28] MEDS: NEURONTIN 300 MG PO ×2 (09:15→20:59)
[2024-08-28] MEDS: COREG 12.5 MG PO ×2 (09:16→20:59)
[2024-08-28] MEDS: FLOMAX 0.4 MG PO (09:16)
[2024-08-28] MEDS: WELLBUTRIN SR (12 hour sustained release) 150 MG PO ×2 (09:17→20:59)
[2024-08-28] MEDS: DELTASONE 30 MG PO (09:17)
[2024-08-28 09:24] LABS: Blood Urea Nitrogen 104 mg/dl (9-20); Calcium 8.5 mg/dl (8.4-10.2); Carbon Dioxide 24 mmol/L (22-30); Chloride 106 mmol/L (98-107); Estimated Creatinine Clearance 39 ml/min; Glucose 142 mg/dl (70-99); Potassium 5.3 mmol/L (3.5-5.1); Sodium 137 mmol/L (135-145); eGFR 32.83
[2024-08-28 12:05] LABS: Glucose - Point of Care 50 mg/dl (70-99)
[2024-08-28 12:37] LABS: Glucose - Point of Care 78 mg/dl (70-99)
--- NOTE | 2024-08-28 13:07 | W.PN.NEPH.PH ---
Today's Communication / Plan
-
Follow BMP
Assessment/Plan
-
Impression:
Severe sepsis, presumed pneumonia
Acute hypoxic respiratory failure
Acute on chr DCHF
Resolved COVID
CKD4 baseline high 2 range
Metabolic acidosis
Anemia
Left Foot osteomyelitis
HTN
+PR3 Ab
Nephrotic range proteinuria of 5 g, biopsy-proven diabetic nephropathy
07/21/24: K biopsy nodular diabetic nephropathy
IFTA mod to severe
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
Plan:
Follow BMP
Weaning steroids
Daptomycin course
So long as creatinine remains stable if BUN continues to improve DC planning is possible from a renal standpoint
Off Lasix and lisinopril for now
Weekly BMP at discharge
-
-
Date of Service: August 28, 2024
CC / HPI / ROS
-
Chief Complaint:
IVY with CKD
History of Present Illness:
Creatinine stable at 2.2
BUN down to 104
afebrile
Remains on daptomycin
anemic-hgb stable
Potassium 5.3
Review of Systems:
no cp
sob and cough improving
no n/v
Labs
-
Labs:
WBC 7.7 10^3/uL (4.8-10.8) 08/28/24 07:31
RBC 3.61 10^6/uL (4.70-6.10) L 08/28/24 07:31
Hgb 9.7 g/dL (13.0-18.0) L 08/28/24 07:31
Hct 30.4 % (39.0-52.0) L 08/28/24 07:31
Plt Count 376 10^3/uL (130-400) 12/12/24 07:31
Sodium 137 mmol/L (135-145) 08/28/24 07:31
Potassium 5.3 mmol/L (3.5-5.1) H 08/28/24 07:31
Chloride 106 mmol/L (98-107) 08/28/24 07:31
Carbon Dioxide 24 mmol/L (22-30) 08/28/24 07:31
BUN 104 mg/dl (9-20) H* 08/28/24 07:31
Creatinine 2.2 mg/dL (0.7-1.3) H 08/28/24 07:31
eGFR 32.83 08/28/24 07:31
Glucose 142 mg/dl (70-99) H 08/28/24 07:31
Calcium 8.5 mg/dl (8.4-10.2) 08/28/24 07:31
Phosphorus 5.2 mg/dl (2.5-4.5) H 08/23/24 04:11
Cmf-X-Zqtmbmeueph Pept 6870 pg/ml 08/25/24 03:53
Albumin 2.5 g/dl (3.5-5.0) L 08/19/24 03:24
Physical Exam
-
Vital Signs:
Vital Signs
Temp Pulse Resp BP Pulse Ox
97.5 F 74 18 173/92 95
08/28/24 12:00 08/28/24 12:00 08/28/24 12:00 08/28/24 12:00 08/28/24 12:00
Cardiovascular:: Regular rate and rhythm
Respiratory:: Bilateral: Coarse
Lung Excursion:: Normal
Abdomen:: Nontender and Soft
Bowel Sounds:: Normal
Extremity Edema:: None: Bilateral:
--- NOTE | 2024-08-28 15:23 | W.PN.HOSP.TC ---
Today's Communication/Plan
-
recheck BMP in AM
Assessment / Plan
Assessment / Plan
Assessment:
Acute hypoxic respiratory failure
- weaned O2 now on room air with SaO2 92-95%
Acute heart failure exacerbation, proBNP greater than 27,000
- s/p IV Lasix course; now on oral Lasix per Nephrology
- Cardiology signed off
Severe sepsis, presumed co-morbid pneumonia, PNA following Covid
Interstitial lung disease with subpleural reticular opacities, traction bronchiectasis with bilateral GGO and consolidative opacities- suspected due to recent covid-19 pneumonia; DDx also includes OP
Recent COVID illness treated with Molnupiravir/steroids
- CT chest: Bilateral airspace, ground-glass, and reticular opacities as described, most likely related to pneumonia. As above, these findings are most pronounced in the lingula and the right middle lobe. Very small bilateral pleural effusions.
Air-fluid level within the esophagus compatible with dysmotility or reflux. Mild coronary and aortic atherosclerosis.
- CRP elevated; IV steroids started 08/19/24 now on oral Prednisone, decreased Pred to 30 mg daily, no wheeze appreciated
- completed Meropenem course per ID.
Metabolic acidosis - resolved
Acute kidney injury on CKD stage 4 (baseline Cr 1.7) - multifactorial from sepsis, PNA, CHF. Showing some improvement
- monitor Cr daily; follow nephrology recs
- cont to hold lisinopril and avoid nephrotoxins
BUN/Creat 127/2.3-->109/2.3-->104/2.2
Lasix/Lisinopril placed on hold by nephrology and confirmed by Dr. Durant that if pt is to be discharged, they are to remain on hold
Steroid induced azotemia
History of MRSA cellulitis
IDDM
steroid induced hyperglycemia
- recent A1c 5.7%
- continue Basal/Bolus + SSI
- stopped regular insulin drip/hyperglycemia protocol and now on SQ insulin. Has been seen by Lili Edwards, development educator and she has adjusted the insulin. Will follow glu closely, may need further tapering of insulin as Prednisone is reduced
follow glu. Was on insulin prior to admission
Nephrotic range proteinuria
Positive proteinase 3 antibodies
essential Hypertension
- holding JOSE
- continue Coreg
Chronic anemia
Left foot osteomyelitis treating outpatient with daptomycin
- course completed 08/25 per ID
Anxiety
- continue Ativan/Gabapentin
DVT ppx: SC Heparin
Code: Full
now transferred to tele
If no further hypoglycemia potential dc next 1-2 days
Anticipated Discharge: 24 - 48 hours
Subjective/Interval History
-
Date of Service: August 28, 2024
Looks better, eating well
Objective Data
-
Labs:
Laboratory Results
08/28/24
07:31
WBC 7.7
Hgb 9.7 L
Hct 30.4 L
Plt Count 376
Sodium 137
Potassium 5.3 H
Chloride 106
Carbon Dioxide 24
BUN 104 H*
Creatinine 2.2 H
Glucose 142 H
Calcium 8.5
Vital Signs:
Vital Signs
Temp Pulse Resp BP Pulse Ox
97.5 F 74 18 173/92 95
08/28/24 12:00 08/28/24 12:00 08/28/24 12:00 08/28/24 12:00 08/28/24 12:00
I&O
08/27/24 08/28/24 08/29/24
06:59 06:59 06:59
Intake Total 1200 / 1200 840 / 840 240 / 240
Output Total 500 / 500
Balance 1200 / 1200 840 / 840 -260 / -260
Review of Systems
-
History Source: Patient and Coordinated Provider
Constitutional: Denies Fever
EENT: Reports No Symptoms Reported
Respiratory: Denies Trouble Breathing
Cardiac: Denies Chest Pain
Abdomen/GI: Reports No Symptoms
Physical Exam
-
General: Well Developed, Well Nourished and No Apparent Distress
HEENT: Atraumatic and Moist Mucous Membranes
Respiratory: Clear to Auscultation; Negative Wheezes, Rales or Rhonchi
Cardiac: Regular Rhythm and S1/S2
GI: Nontender and Nondistended
Musculoskeletal: No Clubbing, No Cyanosis, Edema, Right Lower Extrem (2+) and Edema, Left Lower Extrem (2+)
--- NOTE | 2024-08-28 16:34 | CM ---
CM reviewed chart, reviewed with Hospitalist, anticipated discharge likely 1-2 days. CM will continue to follow for all discharge planning needs.
Plan; home with family, Sowmya FOSTER.
Please fax discharge instructions to Sowmya FOSTER at [phone]
[2024-08-28 17:47] LABS: Glucose - Point of Care 188 mg/dl (70-99)
[2024-08-28] MEDS: NOVOLOG FLEXPEN-LOW RESISTANCE 1 UNITS SC (17:53)
[2024-08-28 21:18] LABS: Glucose - Point of Care 150 mg/dl (70-99)
[2024-08-29 01:21] VITALS: BP 169/90
[2024-08-29 03:38] VITALS: BP 169/89
[2024-08-29 04:58] LABS: Glucose - Point of Care 150 mg/dl (70-99)
[2024-08-29 06:00] VITALS: BMI 21.9
--- NOTE | 2024-08-29 07:20 | PN.DE.MGMTRT ---
Insulin Management
- -
08/29/2024 Diabetes Management Follow up:
Patient admitted with increasing weakness and SOB due to Acute hypoxic Resp Failure. Pt was recently d/c'd after hospitalization for LE Cellulitis, COVID-19 pneumonia and HFpEF a couple days ago. PMH: HTN, HLD, Severe Peripheral Neuropathy, CKD
III, Lumbar DDD, Anxiety /Depression, MRSA bacteremia with left foot Osteomyelitis (on daptomycin), HFpEF and T2DM.
Recent A1C was 5.7% on 07/10/24, had been 14.1% in 10/2023. Pt is not a good historian, states he takes 75/25 but doesn't take a standard dose, he reports taking his insulin on a SS, ~ 10-25 units in the morning and no other insulin or diabetes
medications. He has a monitor and checks his blood sugars 3x/day.
08/29 Patient is awake alert and oriented, able to discuss diabetes management. States he had more exercise than usual which most likely contributed to hypoglycemia pre lunch, glucose 50. I did request he start to add protein at breakfast as his
meal was oatmeal swedish toast and grapes. Will reduce AM dose of 70/30 to 18 units and continue 22 units 70/30 with dinner with low corrective. Will follow for further needed adjustments if needed
Pt has a working glucose meter at home.
Discussed with nurse.
Diabetes History
- -
Type of Diabetes: 2 requiring insulin
Pre-Admission Diabetes Regimen
08/28/24
07:31
Creatinine 2.2 H
Insulin Pump Settings
IP Diabetes Regimen
08/28/24 08/28/24 08/28/24
07:24 07:31 12:02
Glucose 142 H
POC Glucose 144 H 50 L*
08/28/24 08/28/24 08/28/24
12:36 17:46 21:14
Glucose
POC Glucose 78 188 H 150 H
08/29/24
04:56
Glucose
POC Glucose 150 H
Meal type: Breakfast
Amount consumed: 100%
Patient Education
[2024-08-29 07:30] VITALS: BP 154/81
[2024-08-29] MEDS: DUONEB INH (07:43)
[2024-08-29] MEDS: HEPARIN 5000 UNITS SC ×2 (08:27→16:36)
[2024-08-29] MEDS: NEURONTIN 300 MG PO ×2 (08:27→20:18)
[2024-08-29] MEDS: ATIVAN 1 MG PO ×3 (08:27→21:21)
[2024-08-29] MEDS: FLOMAX 0.4 MG PO (08:27)
[2024-08-29] MEDS: WELLBUTRIN SR (12 hour sustained release) 150 MG PO ×2 (08:28→20:18)
[2024-08-29] MEDS: COREG 12.5 MG PO ×2 (08:28→20:18)
[2024-08-29] MEDS: DELTASONE 30 MG PO (08:28)
[2024-08-29] MEDS: NOVOLOG FLEXPEN-LOW RESISTANCE SC ×2 (08:34→12:43)
[2024-08-29] MEDS: NOVOLOG MIX 70/30 FLEXPEN 18 UNITS SC ×2 (08:37→16:49)
[2024-08-29 10:23] LABS: Blood Urea Nitrogen 102 mg/dl (9-20); Calcium 8.7 mg/dl (8.4-10.2); Carbon Dioxide 20 mmol/L (22-30); Chloride 104 mmol/L (98-107); Estimated Creatinine Clearance 40 ml/min; Glucose 231 mg/dl (70-99); Sodium 137 mmol/L (135-145); eGFR 34.72
--- NOTE | 2024-08-29 10:56 | W.PN.HOSP.TC ---
Today's Communication/Plan
-
Lokelma, follow K
Assessment / Plan
Assessment / Plan
Assessment:
Acute hypoxic respiratory failure
- weaned O2 now on room air with SaO2 92-95%
Acute heart failure exacerbation, proBNP greater than 27,000
- s/p IV Lasix course; then on oral Lasix, now stopped, per Nephrology
- Cardiology signed off
Severe sepsis, presumed co-morbid pneumonia, PNA following Covid
Interstitial lung disease with subpleural reticular opacities, traction bronchiectasis with bilateral GGO and consolidative opacities- suspected due to recent covid-19 pneumonia; DDx also includes OP
Recent COVID illness treated with Molnupiravir/steroids
- CT chest: Bilateral airspace, ground-glass, and reticular opacities as described, most likely related to pneumonia. As above, these findings are most pronounced in the lingula and the right middle lobe. Very small bilateral pleural effusions.
Air-fluid level within the esophagus compatible with dysmotility or reflux. Mild coronary and aortic atherosclerosis.
- CRP elevated; IV steroids started 08/19/24 now on oral Prednisone, decreased Pred to 30 mg daily, no wheeze appreciated
- completed Meropenem course per ID.
Metabolic acidosis - resolved
Acute kidney injury on CKD stage 4 (baseline Cr 1.7) - multifactorial from sepsis, PNA, CHF. Showing some improvement
- monitor Cr daily; follow nephrology recs
- cont to hold lisinopril and avoid nephrotoxins
BUN/Creat 127/2.3-->109/2.3-->104/2.2-->102/2.1
Lasix/Lisinopril placed on hold by nephrology and confirmed by Dr. Durant that if pt is to be discharged, they are to remain on hold
Hyperkalemia
5.4-->4.9-->5.3-->[address] Diodato, requests dose of Lokelma be given
Steroid induced azotemia
History of MRSA cellulitis
IDDM
steroid induced hyperglycemia
- recent A1c 5.7%
- continue Basal/Bolus + SSI
- stopped regular insulin drip/hyperglycemia protocol and now on SQ insulin. Has been seen by Lili Edwards, early childhood educator aide and she has adjusted the insulin. Will follow glu closely, may need further tapering of insulin as Prednisone is reduced
follow glu. Was on insulin prior to admission, will decrease standing dose of insulin.
Nephrotic range proteinuria
Positive proteinase 3 antibodies
essential Hypertension
- holding JOSE
- continue Coreg
Chronic anemia
Left foot osteomyelitis treating outpatient with daptomycin
- course completed 08/25 per ID
Anxiety
- continue Ativan/Gabapentin
DVT ppx: SC Heparin
Code: Full
now transferred to tele
If no further hypoglycemia potential dc next 1-2 days
Anticipated Discharge: > 48 hours
Subjective/Interval History
-
Date of Service: August 29, 2024
Breathing better
Objective Data
-
Labs:
Laboratory Results
08/29/24
09:06
Sodium 137
Potassium 6.0 H
Chloride 104
Carbon Dioxide 20 L
BUN 102 H*
Creatinine 2.1 H
Glucose 231 H
Calcium 8.7
Vital Signs:
Vital Signs
Temp Pulse Resp BP Pulse Ox
97.4 F 90 20 154/81 93
08/29/24 07:30 08/29/24 08:28 08/29/24 07:30 08/29/24 08:28 08/29/24 10:40
I&O
08/28/24 08/29/24 08/30/24
06:59 06:59 06:59
Intake Total 840 / 840 1200 / 1200
Output Total 900 / 900
Balance 840 / 840 300 / 300
Review of Systems
-
History Source: Patient and Coordinated Provider
Constitutional: Denies Fever
EENT: Reports No Symptoms Reported
Respiratory: Denies Trouble Breathing
Cardiac: Denies Chest Pain
Abdomen/GI: Reports No Symptoms
Physical Exam
-
General: Well Developed, Well Nourished and No Apparent Distress
HEENT: Atraumatic and Moist Mucous Membranes
Respiratory: Clear to Auscultation; Negative Wheezes, Rales or Rhonchi
Cardiac: Regular Rhythm and S1/S2
GI: Nontender and Nondistended
Musculoskeletal: No Clubbing, No Cyanosis, Edema, Right Lower Extrem (2+) and Edema, Left Lower Extrem (2+)
[2024-08-29] MEDS: LOKELMA 10 GRAM PO (11:49)
--- NOTE | 2024-08-29 12:03 | CM ---
Chart reviewed and major case detective met with patient and patient was ambulating by himself to bathroom while major case detective was in the room, plan is for patient to return to home with [facility] visiting nurses at discharge.
Plan; Home with [facility] visiting Nurses
Sowmya
[phone]
[2024-08-29 12:39] LABS: Glucose - Point of Care 110 mg/dl (70-99)
--- NOTE | 2024-08-29 14:29 | W.PN.NEPH.PH ---
Today's Communication / Plan
-
Lokelma given
BMP
Check postvoid bladder scan
Assessment/Plan
-
Impression:
Severe sepsis, presumed pneumonia
Hyperkalemia
Acute hypoxic respiratory failure
Acute on chr DCHF
Resolved COVID
CKD4 baseline high 2 range
Metabolic acidosis
Anemia
Left Foot osteomyelitis
HTN
+PR3 Ab
Nephrotic range proteinuria of 5 g, biopsy-proven diabetic nephropathy
07/21/24: K biopsy nodular diabetic nephropathy
IFTA mod to severe
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
Plan:
GFR improving and at baselilne
recurrent hyperkalemia
treated with lokelma
no obvious etiology, no outlet obstruction,
will add bicarbonate if metabolic acidosis worsens
Follow BMP
Weaning steroids
So long as creatinine remains stable if BUN continues to improve DC planning is possible from a renal standpoint
Off Lasix and lisinopril for now due to azotemia and recurrent hyperkalemia
Weekly BMP at discharge, may need Lokelma as outpatient for potassium control
-
-
Date of Service: August 29, 2024
CC / HPI / ROS
-
Chief Complaint:
IVY with CKD
History of Present Illness:
Creatinine stable at 2.1
BUN down to 102
afebrile
bp stable
anemic-hgb stable
Potassium 6
Review of Systems:
no cp
sob and cough improving
no n/v
Labs
-
Labs:
WBC 7.7 10^3/uL (4.8-10.8) 08/28/24 07:31
RBC 3.61 10^6/uL (4.70-6.10) L 08/28/24 07:31
Hgb 9.7 g/dL (13.0-18.0) L 08/28/24 07:31
Hct 30.4 % (39.0-52.0) L 08/28/24 07:31
Plt Count 376 10^3/uL (130-400) 08/28/24 07:31
Sodium 137 mmol/L (135-145) 08/29/24 09:06
Potassium 6.0 mmol/L (3.5-5.1) H 08/29/24 09:06
Chloride 104 mmol/L (98-107) 08/29/24 09:06
Carbon Dioxide 20 mmol/L (22-30) L 08/29/24 09:06
BUN 102 mg/dl (9-20) H* 08/29/24 09:06
Creatinine 2.1 mg/dL (0.7-1.3) H 08/29/24 09:06
eGFR 34.72 08/29/24 09:06
Glucose 231 mg/dl (70-99) H 08/29/24 09:06
Calcium 8.7 mg/dl (8.4-10.2) 08/29/24 09:06
Phosphorus 5.2 mg/dl (2.5-4.5) H 08/23/24 04:11
Elq-B-Waknstorzkh Pept 6870 pg/ml 08/25/24 03:53
Albumin 2.5 g/dl (3.5-5.0) L 08/19/24 03:24
Physical Exam
-
Vital Signs:
Vital Signs
Temp Pulse Resp BP Pulse Ox
97.4 F 90 20 154/81 93
08/29/24 07:30 08/29/24 08:28 08/29/24 07:30 08/29/24 08:28 08/29/24 10:40
Cardiovascular:: Regular rate and rhythm
Respiratory:: Bilateral: Coarse
Lung Excursion:: Normal
Abdomen:: Nontender and Soft
Bowel Sounds:: Normal
Extremity Edema:: None: Bilateral:
[2024-08-29 15:00] VITALS: BP 164/90
[2024-08-29] MEDS: NOVOLOG FLEXPEN-LOW RESISTANCE 1 UNITS SC (16:48)
[2024-08-29 16:49] LABS: Glucose - Point of Care 163 mg/dl (70-99)
--- NOTE | 2024-08-29 20:44 | W.PN.UPDATE ---
Update Note
Progress Note Update
2000 pt unwitnessed fall per RN
Pt stated he was picking up something from ground when his left foot 'gave out' and went down on left knee. Denies injury. MILLICENT. Pt states since his left foot surgery he has times where foot will give out. Offered a post op shoe to give him more
stability. Denies need for this at this time. Refusing bed alarm placement. Did attempt to encourage ringing for assistance then.
[2024-08-29 22:17] LABS: Glucose - Point of Care 136 mg/dl (70-99)
[2024-08-29 23:00] VITALS: BP 169/90
[2024-08-30] VITALS (7 sets, daily range): BP systolic 153–174; BP diastolic 75–92; PULSE 77; BMI 22.1
[2024-08-30] MEDS: HEPARIN 5000 UNITS SC ×4 (00:24→23:42)
--- NOTE | 2024-08-30 06:38 | PTCARENOTE ---
Patient had unwitnessed fall in room. RN heard noise and went to assess. Patient was found on floor next to bed. 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 Patient was not a fall risk prior to this
incident; therefore, did not have an alarm in use. Second RN Maria Dow came to assist. Patient was sitting on the floor at this point. RNs assessed if patient hit his head. Patient denied hitting head, denied any trauma or pain. Patient was
assisted x2 to stand and sit in chair. VS were taken. RNs tried to explain that patient would now be a fall risk and require chair/bed alarm. Patient immediately got agitated and started cursing at staff. BP was high (171/98). Chelo LARRY notified SANDER MACHINE
Mellissa that patient had fallen, patient was refusing alarms and the increased BP.
[2024-08-30 07:38] LABS: Blood Urea Nitrogen 93 mg/dl (9-20); Calcium 8.8 mg/dl (8.4-10.2); Carbon Dioxide 25 mmol/L (22-30); Chloride 107 mmol/L (98-107); Estimated Creatinine Clearance 41 ml/min; Glucose 149 mg/dl (70-99); Potassium 5.7 mmol/L (3.5-5.1); Sodium 137 mmol/L (135-145); eGFR 34.72
[2024-08-30 07:50] LABS: Glucose - Point of Care 152 mg/dl (70-99)
[2024-08-30] MEDS: NEURONTIN 300 MG PO ×2 (09:22→21:18)
[2024-08-30] MEDS: WELLBUTRIN SR (12 hour sustained release) 150 MG PO ×2 (09:22→21:18)
[2024-08-30] MEDS: DELTASONE 30 MG PO (09:22)
[2024-08-30] MEDS: ATIVAN 1 MG PO ×3 (09:22→21:17)
[2024-08-30] MEDS: FLOMAX 0.4 MG PO (09:22)
[2024-08-30] MEDS: COREG 12.5 MG PO ×2 (09:22→21:17)
[2024-08-30] MEDS: NOVOLOG FLEXPEN-LOW RESISTANCE 1 UNITS SC (09:25)
[2024-08-30] MEDS: NOVOLOG MIX 70/30 FLEXPEN 14 UNITS SC (09:25)
[2024-08-30 11:27] LABS: Glucose - Point of Care 133 mg/dl (70-99)
--- NOTE | 2024-08-30 11:57 | W.PN.NEPH.PH ---
Addendum entered and electronically signed by Gino Pascual DO 08/30/24 12:00:
Restart Lasix at 20 mg daily
Original Note:
Today's Communication / Plan
-
Lokelma given again
Hyperkalemia should improve when patient placed back on Sunday diuretic of Lasix
Assessment/Plan
-
Impression:
Severe sepsis, presumed pneumonia
Hyperkalemia
Acute hypoxic respiratory failure
Acute on chr DCHF
Resolved COVID
CKD4 baseline high 2 range
Metabolic acidosis
Anemia
Left Foot osteomyelitis
HTN
+PR3 Ab
Nephrotic range proteinuria of 5 g, biopsy-proven diabetic nephropathy
07/21/24: K biopsy nodular diabetic nephropathy
IFTA mod to severe
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
Plan:
GFR improving and at baselilne
recurrent hyperkalemia
treated with lokelma again today
BUN continues to slowly improve down to 93
no obvious etiology, no outlet obstruction,
Follow BMP
Weaning steroids
So long as creatinine remains stable if BUN continues to improve DC planning is possible from a renal standpoint
Off Lasix and lisinopril for now due to azotemia and recurrent hyperkalemia
Weekly BMP at discharge, may need Lokelma as outpatient for potassium control
-
-
Date of Service: August 30, 2024
CC / HPI / ROS
-
Chief Complaint:
IVY with CKD
History of Present Illness:
Creatinine stable at 2.1
BUN down to 93
afebrile
bp stable
anemic-hgb stable
Potassium 5.7
Review of Systems:
no cp
sob and cough improving
no n/v
Labs
-
Labs:
WBC 7.7 10^3/uL (4.8-10.8) 08/28/24 07:31
RBC 3.61 10^6/uL (4.70-6.10) L 08/28/24 07:31
Hgb 9.7 g/dL (13.0-18.0) L 08/28/24 07:31
Hct 30.4 % (39.0-52.0) L 08/28/24 07:31
Plt Count 376 10^3/uL (130-400) 08/28/24 07:31
Sodium 137 mmol/L (135-145) 08/30/24 07:02
Potassium 5.7 mmol/L (3.5-5.1) H 08/30/24 07:02
Chloride 107 mmol/L (98-107) 08/30/24 07:02
Carbon Dioxide 25 mmol/L (22-30) 08/30/24 07:02
BUN 93 mg/dl (9-20) H 08/30/24 07:02
Creatinine 2.1 mg/dL (0.7-1.3) H 08/30/24 07:02
eGFR 34.72 08/30/24 07:02
Glucose 149 mg/dl (70-99) H 08/30/24 07:02
Calcium 8.8 mg/dl (8.4-10.2) 08/30/24 07:02
Phosphorus 5.2 mg/dl (2.5-4.5) H 08/23/24 04:11
Ylm-H-Hqktxytzkth Pept 6870 pg/ml 08/25/24 03:53
Albumin 2.5 g/dl (3.5-5.0) L 08/19/24 03:24
Physical Exam
-
Vital Signs:
Vital Signs
Temp Pulse Resp BP Pulse Ox
98.0 F 83 20 172/92 98
08/30/24 09:00 08/30/24 09:00 08/30/24 09:00 08/30/24 09:00 08/30/24 09:00
Cardiovascular:: Regular rate and rhythm
Respiratory:: Bilateral: Coarse
Lung Excursion:: Normal
Abdomen:: Nontender and Soft
Bowel Sounds:: Normal
Extremity Edema:: None: Bilateral:
[2024-08-30] MEDS: APRESOLINE 5 MG IV (12:38)
[2024-08-30] MEDS: NOVOLOG FLEXPEN-LOW RESISTANCE SC (12:38)
[2024-08-30] MEDS: LASIX 20 MG PO (12:38)
[2024-08-30] MEDS: LOKELMA 10 GRAM PO ×2 (14:56→18:51)
--- NOTE | 2024-08-30 16:15 | W.PN.HOSP.TC ---
Today's Communication/Plan
-
decrease steroid dosing and insulin
Assessment / Plan
Assessment / Plan
Assessment:
Acute hypoxic respiratory failure
- weaned O2 now on room air with SaO2 92-95%
Acute heart failure exacerbation, proBNP greater than 27,000
- s/p IV Lasix course; then on oral Lasix, now 20 mg daily, per Nephrology
- Cardiology signed off
Severe sepsis, presumed co-morbid pneumonia, PNA following Covid
Interstitial lung disease with subpleural reticular opacities, traction bronchiectasis with bilateral GGO and consolidative opacities- suspected due to recent covid-19 pneumonia; DDx also includes OP
Recent COVID illness treated with Molnupiravir/steroids
- CT chest: Bilateral airspace, ground-glass, and reticular opacities as described, most likely related to pneumonia. As above, these findings are most pronounced in the lingula and the right middle lobe. Very small bilateral pleural effusions.
Air-fluid level within the esophagus compatible with dysmotility or reflux. Mild coronary and aortic atherosclerosis.
- CRP elevated; IV steroids started 08/19/24 now on oral Prednisone, decreased Pred to 30 mg daily as of 08/27, no wheeze appreciated, will decrease to 20 mg daily, discussed with Dr. Pascual, he has no problem with decreased dose
- completed Meropenem course per ID.
Metabolic acidosis - resolved
Acute kidney injury on CKD stage 4 (baseline Cr 1.7) - multifactorial from sepsis, PNA, CHF. Showing some improvement
- monitor Cr daily; follow nephrology recs
- cont to hold lisinopril and avoid nephrotoxins
BUN/Creat 127/2.3-->109/2.3-->104/2.2-->102/2.1-->93/2.1 (which is about baseline)
Hyperkalemia
5.4-->4.9-->5.3-->6.0-->5.[address] Pascual, requests dose of Lokelma be given
Steroid induced azotemia
History of MRSA cellulitis
IDDM
steroid induced hyperglycemia
- recent A1c 5.7%
- continue Basal/Bolus + SSI
- stopped regular insulin drip/hyperglycemia protocol and now on SQ insulin. Has been seen by Lili Edwards, environmental educator and she has adjusted the insulin. Will follow glu closely, may need further tapering of insulin as Prednisone is reduced
follow glu. Was on insulin prior to admission, will decrease standing dose of insulin. With decrease in Pred dosing and glu 133-163, will further decrease insulin dosing
Nephrotic range proteinuria
Positive proteinase 3 antibodies
essential Hypertension
- holding JOSE
- continue Coreg
Chronic anemia
Left foot osteomyelitis treating outpatient with daptomycin
- course completed 08/25 per ID
Anxiety
- continue Ativan/Gabapentin
DVT ppx: SC Heparin
Code: Full
now transferred to tele
If no further hypoglycemia and K normalizes potential dc next 1-2 days
Anticipated Discharge: 24 - 48 hours
Subjective/Interval History
-
Date of Service: August 30, 2024
Breathing well, pt anxiously awaiting dc
Objective Data
-
Labs:
Laboratory Results
08/30/24
07:02
Sodium 137
Potassium 5.7 H
Chloride 107
Carbon Dioxide 25
BUN 93 H
Creatinine 2.1 H
Glucose 149 H
Calcium 8.8
Vital Signs:
Vital Signs
Temp Pulse Resp BP Pulse Ox
97.3 F 75 16 174/86 98
08/30/24 12:28 08/30/24 12:28 08/30/24 12:28 08/30/24 12:38 08/30/24 12:28
I&O
08/29/24 08/30/2408/31/24
06:59 06:59 06:59
Intake Total 1200 / 1200 1140 / 1140
Output Total 900 / 900
Balance 300 / 300 1140 / 1140
Review of Systems
-
History Source: Patient and Coordinated Provider
Constitutional: Denies Fever
EENT: Reports No Symptoms Reported
Respiratory: Denies Trouble Breathing
Cardiac: Denies Chest Pain
Abdomen/GI: Reports No Symptoms
Physical Exam
-
General: Well Developed, Well Nourished and No Apparent Distress
HEENT: Atraumatic and Moist Mucous Membranes
Respiratory: Clear to Auscultation; Negative Wheezes, Rales or Rhonchi
Cardiac: Regular Rhythm and S1/S2
GI: Nontender and Nondistended
Musculoskeletal: No Clubbing, No Cyanosis, Edema, Right Lower Extrem (2+) and Edema, Left Lower Extrem (2+)
[2024-08-30 16:31] LABS: Glucose - Point of Care 205 mg/dl (70-99)
[2024-08-30] MEDS: NOVOLOG FLEXPEN-LOW RESISTANCE 2 UNITS SC (16:55)
[2024-08-30] MEDS: NOVOLOG MIX 70/30 FLEXPEN 16 UNITS SC (16:56)
--- NOTE | 2024-08-30 18:42 | PTCARENOTE ---
at lunch time today pt could not find his cell phone. Phone was called from room and cell was not located in room. Linen bag checked as complete bed change had been done. Cell phone was not found. Pt's son in law Tomi aware. Kitchen was called and
made aware it was possibly left on tray last night.
[2024-08-30 21:32] LABS: Glucose - Point of Care 147 mg/dl (70-99)
[2024-08-31 03:48] VITALS: BP 171/89
[2024-08-31 06:00] VITALS: BMI 21.9
[2024-08-31] MEDS: LOKELMA 10 GRAM PO ×3 (06:14→18:02)
[2024-08-31 07:14] LABS: Glucose - Point of Care 200 mg/dl (70-99)
[2024-08-31 07:24] VITALS: BP 179/89
[2024-08-31] MEDS: COREG 12.5 MG PO ×2 (07:24→21:52)
[2024-08-31] MEDS: NEURONTIN 300 MG PO ×2 (07:24→21:52)
[2024-08-31] MEDS: WELLBUTRIN SR (12 hour sustained release) 150 MG PO ×2 (07:24→21:52)
[2024-08-31] MEDS: FLOMAX 0.4 MG PO (07:24)
[2024-08-31] MEDS: DELTASONE 20 MG PO (07:24)
[2024-08-31] MEDS: ATIVAN 1 MG PO ×3 (07:25→21:52)
[2024-08-31] MEDS: NOVOLOG FLEXPEN-LOW RESISTANCE 2 UNITS SC (07:25)
[2024-08-31] MEDS: HEPARIN 5000 UNITS SC ×3 (07:25→23:47)
[2024-08-31] MEDS: LASIX 20 MG PO (07:26)
[2024-08-31] MEDS: NOVOLOG MIX 70/30 FLEXPEN 12 UNITS SC (07:26)
[2024-08-31 07:27] LABS: Blood Urea Nitrogen 93 mg/dl (9-20); Calcium 8.8 mg/dl (8.4-10.2); Carbon Dioxide 22 mmol/L (22-30); Chloride 107 mmol/L (98-107); Estimated Creatinine Clearance 41 ml/min; Glucose 190 mg/dl (70-99); Potassium 5.4 mmol/L (3.5-5.1); Sodium 137 mmol/L (135-145); eGFR 34.72
--- NOTE | 2024-08-31 11:02 | W.PN.NEPH.PH ---
Today's Communication / Plan
-
Decrease Lasix to 20 mg 3 times weekly
Patient went eventually discharge Will need Lokelma 3 times a week 10 g with follow-up BMP 2 days after hospital discharge
Creatinine continues to stay stable at base
Assessment/Plan
-
Impression:
Severe sepsis, presumed pneumonia
Hyperkalemia
Acute hypoxic respiratory failure
Acute on chr DCHF
Resolved COVID
CKD4 baseline high 2 range
Metabolic acidosis
Anemia
Left Foot osteomyelitis
HTN
+PR3 Ab
Nephrotic range proteinuria of 5 g, biopsy-proven diabetic nephropathy
07/21/24: K biopsy nodular diabetic nephropathy
IFTA mod to severe
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
Plan:
GFR improving and at baseline 2.1
recurrent hyperkalemia, currently at 5.4 etiology remains elusive
Patient is grossly nonoliguric in excess of 2 L
Will titrate back Lasix to 20 mg Sunday
BUN continues to slowly improve down to 93
no obvious etiology, no outlet obstruction,
Follow BMP
Weaning steroids
So long as creatinine remains stable if BUN continues to improve DC planning is possible from a renal standpoint
Off lisinopril for now due to azotemia and recurrent hyperkalemia
Weekly BMP at discharge, will need Lokelma as outpatient for potassium control, suggest 10 g every 48 hours
-
-
Date of Service: August 31, 2024
CC / HPI / ROS
-
Chief Complaint:
IVY with CKD
History of Present Illness:
Creatinine stable at 2.1
BUN down to 93
afebrile
bp stable
anemic-hgb stable
Potassium 5.4
Review of Systems:
no cp
sob and cough improving
no n/v
Grossly nonoliguric
Labs
-
Labs:
WBC 7.7 10^3/uL (4.8-10.8) 08/28/24 07:31
RBC 3.61 10^6/uL (4.70-6.10) L 08/28/24 07:31
Hgb 9.7 g/dL (13.0-18.0) L 08/28/24 07:31
Hct 30.4 % (39.0-52.0) L 08/28/24 07:31
Plt Count 376 10^3/uL (130-400) 08/28/24 07:31
Sodium 137 mmol/L (135-145) 08/31/24 06:31
Potassium 5.4 mmol/L (3.5-5.1) H 08/31/24 06:31
Chloride 107 mmol/L (98-107) 08/31/24 06:31
Carbon Dioxide 22 mmol/L (22-30) 08/31/24 06:31
BUN 93 mg/dl (9-20) H 08/31/24 06:31
Creatinine 2.1 mg/dL (0.7-1.3) H 08/31/24 06:31
eGFR 34.72 08/31/24 06:31
Glucose 190 mg/dl (70-99) H 08/31/24 06:31
Calcium 8.8 mg/dl (8.4-10.2) 08/31/24 06:31
Phosphorus 5.2 mg/dl (2.5-4.5) H 08/23/24 04:11
Bgx-Y-Kchfxocvsov Pept 6870 pg/ml 08/25/24 03:53
Albumin 2.5 g/dl (3.5-5.0) L 08/19/24 03:24
Physical Exam
-
Vital Signs:
Vital Signs
Temp Pulse Resp BP Pulse Ox
97.8 F 82 18 179/89 94
08/31/24 07:24 08/31/24 07:24 08/31/24 07:24 08/31/24 07:24 08/31/24 07:24
Cardiovascular:: Regular rate and rhythm
Respiratory:: Bilateral: Coarse
Lung Excursion:: Normal
Abdomen:: Nontender and Soft
Bowel Sounds:: Normal
Extremity Edema:: None: Bilateral:
[2024-08-31 11:31] LABS: Glucose - Point of Care 150 mg/dl (70-99)
[2024-08-31] MEDS: NOVOLOG FLEXPEN-LOW RESISTANCE 1 UNITS SC ×2 (11:42→16:56)
[2024-08-31 11:45] VITALS: BP 166/87
[2024-08-31 15:33] VITALS: BP 165/84
--- NOTE | 2024-08-31 16:02 | W.PN.HOSP.TC ---
Today's Communication/Plan
-
follow K
continue Lokelma
change to Med/Surg
Assessment / Plan
Assessment / Plan
Assessment:
Acute hypoxic respiratory failure
- weaned O2 now on room air with SaO2 92-95%
so far tolerating weaning of steroids
Acute heart failure exacerbation, proBNP greater than 27,000
- s/p IV Lasix course; then on oral Lasix, now 20 mg MWF, per Nephrology
- Cardiology signed off
Severe sepsis, presumed co-morbid pneumonia, PNA following Covid
Interstitial lung disease with subpleural reticular opacities, traction bronchiectasis with bilateral GGO and consolidative opacities- suspected due to recent covid-19 pneumonia; DDx also includes OP
Recent COVID illness treated with Molnupiravir/steroids
- CT chest: Bilateral airspace, ground-glass, and reticular opacities as described, most likely related to pneumonia. As above, these findings are most pronounced in the lingula and the right middle lobe. Very small bilateral pleural effusions.
Air-fluid level within the esophagus compatible with dysmotility or reflux. Mild coronary and aortic atherosclerosis.
- CRP elevated; IV steroids started 08/19/24 now on oral Prednisone, decreased Pred to 30 mg daily as of 08/27, no wheeze appreciated, will decrease to 20 mg daily, discussed with Dr. Pascual, he has no problem with decreased dose
- completed Meropenem course per ID.
Metabolic acidosis - resolved
Acute kidney injury on CKD stage 4 (baseline Cr 1.7) - multifactorial from sepsis, PNA, CHF. Showing some improvement
- monitor Cr daily; follow nephrology recs
- cont to hold lisinopril and avoid nephrotoxins
BUN/Creat 127/2.3-->109/2.3-->104/2.2-->102/2.1-->93/2.1 (which is about baseline)
Hyperkalemia
5.4-->4.9-->5.3-->6.0-->5.7-->5.[address] Pascual, believes pt will continue to need Lokelma 10 gms 3x per week. Unclear about insurance coverage. This will need to be clarified prior to dc patient
Steroid induced azotemia
History of MRSA cellulitis
IDDM
steroid induced hyperglycemia
- recent A1c 5.7%
- continue Basal/Bolus + SSI
- stopped regular insulin drip/hyperglycemia protocol and now on SQ insulin. Has been seen by Lili Edwards, adult educator and she has adjusted the insulin. Will follow glu closely, may need further tapering of insulin as Prednisone is reduced
follow glu. Was on insulin prior to admission, will decrease standing dose of insulin. With decrease in Pred dosing and glu 133-163, will further decrease insulin dosing. Pt had episodes of hypoglycemia, last on 08/28. None since, with
decrease in steroids and associated decrease in insulin, appears to have resolved
Nephrotic range proteinuria
Positive proteinase 3 antibodies
essential Hypertension
- holding JOSE
- continue Coreg
Chronic anemia
Left foot osteomyelitis treating outpatient with daptomycin
- course completed 08/25 per ID
Anxiety
- continue Ativan/Gabapentin
DVT ppx: SC Heparin
Code: Full
now transferred off tele
If no further hypoglycemia and K normalizes potential dc next 1-2 days
Anticipated Discharge: 24 - 48 hours
Subjective/Interval History
-
Date of Service: August 31, 2024
Awake, alert, asking about timing of dc
Objective Data
-
Labs:
Laboratory Results
08/31/24
06:31
Sodium 137
Potassium 5.4 H
Chloride 107
Carbon Dioxide 22
BUN 93 H
Creatinine 2.1 H
Glucose 190 H
Calcium 8.8
Vital Signs:
Vital Signs
Temp Pulse Resp BP Pulse Ox
97.3 F 78 20 165/84 96
08/31/24 15:33 08/31/24 15:33 08/31/24 15:33 08/31/24 15:33 08/31/24 15:33
I&O
08/30/24 08/31/24 09/01/24
06:59 06:59 06:59
Intake Total 1140 / 1140 680 / 680
Output Total 2455 / 2455
Balance 1140 / 1140 -1775 / -1775
Review of Systems
-
History Source: Patient and Coordinated Provider
Constitutional: Denies Fever
EENT: Reports No Symptoms Reported
Respiratory: Denies Trouble Breathing
Cardiac: Denies Chest Pain
Abdomen/GI: Reports No Symptoms
Physical Exam
-
General: Well Developed, Well Nourished and No Apparent Distress
HEENT: Atraumatic and Moist Mucous Membranes
Respiratory: Clear to Auscultation; Negative Wheezes, Rales or Rhonchi
Cardiac: Regular Rhythm and S1/S2
GI: Nontender and Nondistended
Musculoskeletal: No Clubbing, No Cyanosis, Edema, Right Lower Extrem (2+) and Edema, Left Lower Extrem (2+)
[2024-08-31 16:29] LABS: Glucose - Point of Care 191 mg/dl (70-99)
[2024-08-31] MEDS: NOVOLOG MIX 70/30 FLEXPEN 16 UNITS SC (16:57)
[2024-08-31 21:20] LABS: Glucose - Point of Care 142 mg/dl (70-99)
[2024-08-31 23:30] VITALS: BP 150/87
[2024-09-01 06:00] VITALS: BMI 21.9
[2024-09-01] MEDS: LOKELMA 10 GRAM PO (06:24)
[2024-09-01 07:14] LABS: Glucose - Point of Care 191 mg/dl (70-99)
--- NOTE | 2024-09-01 07:33 | PN.DE.MGMTRT ---
Insulin Management
- -
09/01/2024 Diabetes Management Follow up:
Patient admitted with increasing weakness and SOB due to Acute hypoxic Resp Failure. Pt was recently d/c'd after hospitalization for LE Cellulitis, COVID-19 pneumonia and HFpEF a couple days ago. PMH: HTN, HLD, Severe Peripheral Neuropathy, CKD
III, Lumbar DDD, Anxiety /Depression, MRSA bacteremia with left foot Osteomyelitis (on daptomycin), HFpEF and T2DM.
Recent A1C was 5.7% on 07/10/24, had been 14.1% in 10/2023. Pt is not a good historian, states he takes 75/25 but doesn't take a standard dose, he reports taking his insulin on a SS, ~ 10-25 units in the morning and no other insulin or diabetes
medications. He has a monitor and checks his blood sugars 3x/day.
09/01 Patient is awake alert and oriented, able to discuss diabetes management. AM dose of 70/[address] Bagley: to 12 units and 16 units 70/30 with dinner with low corrective. Will defer to Dr. Bagley
Will follow for further needed adjustments if needed
Pt has a working glucose meter at home.
Discussed with nurse.
Diabetes History
- -
Type of Diabetes: 2 requiring insulin
Pre-Admission Diabetes Regimen
Insulin Pump Settings
IP Diabetes Regimen
08/31/24 08/31/24 08/31/24
11:30 16:28 21:19
POC Glucose 150 H 191 H 142 H
09/01/24
07:13
POC Glucose 191 H
Patient Education
[2024-09-01 08:00] VITALS: BP 162/90
[2024-09-01 08:21] LABS: Potassium, Plasma 3.9 mMOL/L
[2024-09-01] MEDS: NOVOLOG FLEXPEN-LOW RESISTANCE 1 UNITS SC (08:28)
[2024-09-01] MEDS: HEPARIN 5000 UNITS SC ×3 (08:29→23:48)
[2024-09-01] MEDS: DELTASONE 20 MG PO (08:29)
[2024-09-01] MEDS: LASIX 20 MG PO (08:29)
[2024-09-01] MEDS: FLOMAX 0.4 MG PO (08:30)
[2024-09-01] MEDS: NEURONTIN 300 MG PO ×2 (08:30→22:33)
[2024-09-01] MEDS: WELLBUTRIN SR (12 hour sustained release) 150 MG PO ×2 (08:30→22:33)
[2024-09-01] MEDS: COREG 12.5 MG PO ×2 (08:30→22:33)
[2024-09-01] MEDS: ATIVAN 1 MG PO ×3 (08:30→22:33)
[2024-09-01] MEDS: NOVOLOG MIX 70/30 FLEXPEN 12 UNITS SC (08:31)
[2024-09-01 08:41] LABS: Blood Urea Nitrogen 88 mg/dl (9-20); Calcium 8.6 mg/dl (8.4-10.2); Carbon Dioxide 22 mmol/L (22-30); Chloride 106 mmol/L (98-107); Estimated Creatinine Clearance 40 ml/min; Glucose 241 mg/dl (70-99); Potassium 4.2 mmol/L (3.5-5.1); Sodium 137 mmol/L (135-145); eGFR 34.72
[2024-09-01 11:16] LABS: Glucose - Point of Care 52 mg/dl (70-99)
--- NOTE | 2024-09-01 11:21 | PTCARENOTE ---
pt's sugar came back as 52, pt had asked me to check it since he thought it was low. Gave pt some crackers and jelly, regular mirian alayna and apple juice. will check again in 15 minutes.
[2024-09-01] MEDS: NOVOLOG FLEXPEN-LOW RESISTANCE SC (11:36)
--- NOTE | 2024-09-01 11:48 | W.PN.HOSP.TC ---
Today's Communication/Plan
-
reduce Insulin PM dose to 14 units
continue Pred 20mg
monitor K+
Assessment / Plan
Assessment / Plan
Assessment:
Acute hypoxic respiratory failure
- weaned O2 now on room air with SaO2 92-95%
Acute heart failure exacerbation, proBNP greater than 27,000
- s/p IV Lasix course; then on oral Lasix, now 20 mg MWF, per Nephrology
- Cardiology signed off
Severe sepsis, presumed co-morbid pneumonia, PNA following Covid
Interstitial lung disease with subpleural reticular opacities, traction bronchiectasis with bilateral GGO and consolidative opacities- suspected due to recent covid-19 pneumonia; DDx also includes OP
Recent COVID illness treated with Molnupiravir/steroids
- CT chest: Bilateral airspace, ground-glass, and reticular opacities as described, most likely related to pneumonia. As above, these findings are most pronounced in the lingula and the right middle lobe. Very small bilateral pleural effusions.
Air-fluid level within the esophagus compatible with dysmotility or reflux. Mild coronary and aortic atherosclerosis.
- CRP elevated; IV steroids started 08/19/24 now on oral Prednisone 20mg daily until OP Pulm follow up
- completed Meropenem course per ID.
Metabolic acidosis - resolved
Acute kidney injury on CKD stage 4 (baseline Cr 1.7) - multifactorial from sepsis, PNA, CHF. Showing some improvement
- monitor Cr daily; follow nephrology recs
- cont to hold lisinopril and avoid nephrotoxins
- BUN/Creat 127/2.3-->109/2.3-->104/2.2-->102/2.1-->88/2.1 (which is about baseline)
Hyperkalemia
- improving with 3x/weekly Lokelma - send script for pricing outpatient
Steroid induced azotemia
History of MRSA cellulitis
IDDM
steroid induced hyperglycemia
- recent A1c 5.7%
- continue Basal/Bolus + SSI
- stopped regular insulin drip/hyperglycemia protocol and now on SQ insulin. Has been seen by Lili Edwards, prosthodontist/educator and she has adjusted the insulin. Will follow glu closely, may need further tapering of insulin as Prednisone is reduced
Nephrotic range proteinuria
Positive proteinase 3 antibodies
essential Hypertension
- holding JOSE
- continue Coreg
Chronic anemia
Left foot osteomyelitis treating outpatient with daptomycin
- course completed 08/25 per ID
Anxiety
- continue Ativan/Gabapentin
DVT ppx: SC Heparin
Code: Full
Anticipated Discharge: Within 24 hours
Subjective/Interval History
-
Date of Service: September 01, 2024
Hypoglycemic this morning, recovering with juice, jello
Objective Data
-
Labs:
Laboratory Results
09/01/24
07:54
Sodium 137
Potassium 4.2
Chloride 106
Carbon Dioxide 22
BUN 88 H
Creatinine 2.1 H
Glucose 241 H
Calcium 8.6
Vital Signs:
Vital Signs
Temp Pulse Resp BP Pulse Ox
97.6 F 80 20 162/90 98
09/01/24 08:00 09/01/24 08:00 09/01/24 08:00 09/01/24 08:30 09/01/24 08:00
I&O
08/31/24 09/01/24 09/02/24
06:59 06:59 06:59
Intake Total 680 / 680 480 / 480
Output Total 2455 / 2455 1000 / 1000
Balance -1775 / -1775 -520 / -520
Physical Exam
-
General: No Apparent Distress
HEENT: Normocephalic and Atraumatic
Respiratory: Negative Wheezes
Cardiac: Regular Rhythm and S1/S2
GI: Soft
Musculoskeletal: No Edema
Neuro: AO x 3
Hematologic / Lymphatic: No Lymphadenopathy
Psych: Calm
Data Reviewed
-
Total Time Spent with Patient (in minutes): 41
Labs: Labs Reviewed by me
[2024-09-01 11:49] LABS: Glucose - Point of Care 108 mg/dl (70-99)
--- NOTE | 2024-09-01 12:56 | CM ---
CM consulted for med pricing
Bedside meeting with pt
Part D Rx info received
[facility] Member # [id number]
Pharmacy Help Desk [phone]
Lokelma 10g PO powder packet Q48 hours 30 days- quantity of 15
Comes in boxes of 11 or 30
11- $127.18 30- $346.52
Call with local [facility] who noted they are able to split a box of 30, med in stock
Cost for 15 packets will be $213.58
This info provided TT/Dr Barry
Discharge Disposition- home with Sowmya FOSTER
--- NOTE | 2024-09-01 15:41 | W.PN.NEPH.PH ---
Today's Communication / Plan
-
continue diuretics with low, pending approval
Assessment/Plan
-
Impression:
Severe sepsis, presumed pneumonia
Hyperkalemia
Acute hypoxic respiratory failure
Acute on chr DCHF
Resolved COVID
CKD4 baseline high 2 range
Metabolic acidosis
Anemia
Left Foot osteomyelitis
HTN
+PR3 Ab
Nephrotic range proteinuria of 5 g, biopsy-proven diabetic nephropathy
07/21/24: K biopsy nodular diabetic nephropathy
IFTA mod to severe
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
Plan:
GFR improving and at baseline 2.1
recurrent hyperkalemia, within normal limits today at 4.2
continue Lasix to 20 mg Sunday which was recently decreased from daily 08/31
no obvious etiology, no outlet obstruction,
Follow BMP
Weaning steroids
So long as creatinine remains stable if BUN continues to improve DC planning is possible from a renal standpoint
Off lisinopril for now due to azotemia and recurrent hyperkalemia
Weekly BMP at discharge, will need [facility] as outpatient for potassium control, suggest 10 g every 48 hours
-
-
Date of Service: September 01, 2024
CC / HPI / ROS
-
Chief Complaint:
IVY with CKD
History of Present Illness:
Creatinine stable at 2.1
afebrile
bp stable
anemic-hgb stable
Potassium 5.4> 4.9
Review of Systems:
no cp
sob and cough improving
no n/v
Grossly nonoliguric
Labs
-
Labs:
WBC 7.7 10^3/uL (4.8-10.8) 08/28/24 07:31
RBC 3.61 10^6/uL (4.70-6.10) L 08/28/24 07:31
Hgb 9.7 g/dL (13.0-18.0) L 08/28/24 07:31
Hct 30.4 % (39.0-52.0) L 08/28/24 07:31
Plt Count 376 10^3/uL (130-400) 08/28/24 07:31
Sodium 137 mmol/L (135-145) 09/01/24 07:54
Potassium 4.2 mmol/L (3.5-5.1) 09/01/24 07:54
Chloride 106 mmol/L (98-107) 09/01/24 07:54
Carbon Dioxide 22 mmol/L (22-30) 09/01/24 07:54
BUN 88 mg/dl (9-20) H 09/01/24 07:54
Creatinine 2.1 mg/dL (0.7-1.3) H 09/01/24 07:54
eGFR 34.72 09/01/24 07:54
Glucose 241 mg/dl (70-99) H 09/01/24 07:54
Calcium 8.6 mg/dl (8.4-10.2) 09/01/24 07:54
Phosphorus 5.2 mg/dl (2.5-4.5) H 08/23/24 04:11
Xtp-S-Jrpygyiqzkv Pept 6870 pg/ml 08/25/24 03:53
Albumin 2.5 g/dl (3.5-5.0) L 08/19/24 03:24
Physical Exam
-
Vital Signs:
Vital Signs
Temp Pulse Resp BP Pulse Ox
97.6 F 80 20 162/90 98
09/01/24 08:00 09/01/24 08:00 09/01/24 08:00 09/01/24 08:30 09/01/24 08:00
Respiratory:: Bilateral: CTA
Lung Excursion:: Normal
Abdomen:: Soft
Bowel Sounds:: Normal
Extremity Edema:: +1: Bilateral:
[2024-09-01 16:00] VITALS: BP 164/88
[2024-09-01 16:14] LABS: Glucose - Point of Care 228 mg/dl (70-99)
[2024-09-01] MEDS: NOVOLOG FLEXPEN-LOW RESISTANCE 2 UNITS SC (16:15)
[2024-09-01] MEDS: NOVOLOG MIX 70/30 FLEXPEN 14 UNITS SC (16:17)
[2024-09-01 21:50] LABS: Glucose - Point of Care 194 mg/dl (70-99)
[2024-09-01 23:30] VITALS: BP 168/82
[2024-09-02 06:00] VITALS: BMI 21.4
[2024-09-02 07:00] VITALS: BP 144/74
[2024-09-02 07:23] LABS: Glucose - Point of Care 118 mg/dl (70-99)
[2024-09-02] MEDS: NOVOLOG FLEXPEN-LOW RESISTANCE SC ×2 (08:22→12:39)
[2024-09-02] MEDS: ATIVAN 1 MG PO (08:26)
[2024-09-02] MEDS: WELLBUTRIN SR (12 hour sustained release) 150 MG PO (08:26)
[2024-09-02] MEDS: FLOMAX 0.4 MG PO (08:26)
[2024-09-02] MEDS: HEPARIN 5000 UNITS SC (08:26)
[2024-09-02] MEDS: COREG 12.5 MG PO (08:26)
[2024-09-02] MEDS: DELTASONE 20 MG PO (08:26)
[2024-09-02] MEDS: NEURONTIN 300 MG PO (08:26)
--- NOTE | 2024-09-02 08:28 | PN.DE.MGMTRT ---
Insulin Management
- -
09/02/2024 Diabetes Management Follow up:
Patient admitted with increasing weakness and SOB due to Acute hypoxic Resp Failure. Pt was recently d/c'd after hospitalization for LE Cellulitis, COVID-19 pneumonia and HFpEF a couple days ago. PMH: HTN, HLD, Severe Peripheral Neuropathy, CKD
III, Lumbar DDD, Anxiety /Depression, MRSA bacteremia with left foot Osteomyelitis (on daptomycin), HFpEF and T2DM.
Recent A1C was 5.7% on 07/10/24, had been 14.1% in 10/2023. Pt is not a good historian, states he takes 75/25 but doesn't take a standard dose, he reports taking his insulin on a SS, ~ 10-25 units in the morning and no other insulin or diabetes
medications. He has a monitor and checks his blood sugars 3x/day.
09/02 Patient is awake alert and oriented, able to discuss diabetes management.
Glucose yesterday pre lunch 52. Will further reduce AM 70/30 dose to 10 units. Will continue dinner dose of 14 units.
Will follow for further needed adjustments if needed
Pt has a working glucose meter at home.
Discussed with nurse.
Diabetes History
- -
Type of Diabetes: 2 requiring insulin
Pre-Admission Diabetes Regimen
09/01/24
07:54
Creatinine 2.1 H
Insulin Pump Settings
IP Diabetes Regimen
09/01/24 09/01/24 09/01/24
07:54 11:15 11:48
Glucose 241 H
POC Glucose 52 L* 108 H
09/01/24 09/01/24 09/02/24
16:13 21:49 07:21
Glucose
POC Glucose 228 H 194 H 118 H
Meal type: Breakfast
Amount consumed: 100%
Patient Education
[2024-09-02 08:30] LABS: Hematocrit 29.2 % (39.0-52.0); Hemoglobin 9.6 g/dL (13.0-18.0); Mean Corp Hgb Conc. 32.9 g/dL (33.0-37.0); Mean Corpuscular Hgb 27.7 pg (27.0-31.0); Mean Corpuscular Volume 84.1 fL (80.0-94.0); Mean Platelet Volume 9.6 fL (7.4-10.4); Platelet Count 260 10^3/uL (130-400); Red Blood Cell Count 3.47 10^6/uL (4.70-6.10); Red Cell Dist. Width 17.7 % (11.5-14.5)
[2024-09-02 08:39] LABS: Blood Urea Nitrogen 81 mg/dl (9-20); Calcium 8.4 mg/dl (8.4-10.2); Carbon Dioxide 21 mmol/L (22-30); Chloride 109 mmol/L (98-107); Estimated Creatinine Clearance 40 ml/min; Glucose 137 mg/dl (70-99); Potassium 4.6 mmol/L (3.5-5.1); Sodium 138 mmol/L (135-145); eGFR 34.72
[2024-09-02] MEDS: NOVOLOG MIX 70/30 FLEXPEN 12 UNITS SC (08:49)
--- NOTE | 2024-09-02 10:12 | W.PN.HOSP.TC ---
Today's Communication/Plan
-
dc home VN
Assessment / Plan
Assessment / Plan
Assessment:
Acute hypoxic respiratory failure
- weaned O2 now on room air with SaO2 92-95%
Acute heart failure exacerbation, proBNP greater than 27,000
- s/p IV Lasix course; then on oral Lasix, now 20 mg MWF, per Nephrology
- Cardiology signed off
Severe sepsis, presumed co-morbid pneumonia, PNA following Covid
Interstitial lung disease with subpleural reticular opacities, traction bronchiectasis with bilateral GGO and consolidative opacities- suspected due to recent covid-19 pneumonia; DDx also includes OP
Recent COVID illness treated with Molnupiravir/steroids
- CT chest: Bilateral airspace, ground-glass, and reticular opacities as described, most likely related to pneumonia. As above, these findings are most pronounced in the lingula and the right middle lobe. Very small bilateral pleural effusions.
Air-fluid level within the esophagus compatible with dysmotility or reflux. Mild coronary and aortic atherosclerosis.
- CRP elevated; IV steroids started 08/19/24 now on oral Prednisone 20mg daily until OP Pulm follow up
- completed Meropenem course per ID.
Metabolic acidosis - resolved
Acute kidney injury on CKD stage 4 (baseline Cr 1.7) - multifactorial from sepsis, PNA, CHF. Showing some improvement
- monitor Cr daily; follow nephrology recs
- cont to hold lisinopril and avoid nephrotoxins
- BUN/Creat 127/2.3-->109/2.3-->104/2.2-->102/2.1-->88/2.1 (which is about baseline)
Hyperkalemia
- improving with 3x/weekly Lokelma. Discussed with Nephrology Dr. Sorto via TT 09/02 and ok to reduce to 2x/weekly (, Sun) with weekly labs
Steroid induced azotemia
History of MRSA cellulitis
IDDM
steroid induced hyperglycemia
- recent A1c 5.7%
- continue Basal/Bolus + SSI
- stopped regular insulin drip/hyperglycemia protocol and now on SQ insulin. Has been seen by Lili Edwards, cosmetology educator and she has adjusted the insulin. Will follow glu closely, may need further tapering of insulin as Prednisone is reduced
Nephrotic range proteinuria
Positive proteinase 3 antibodies
essential Hypertension
- holding JOSE
- continue Coreg
Chronic anemia
Left foot osteomyelitis treating outpatient with daptomycin
- course completed 08/25 per ID
Anxiety
- continue Ativan/Gabapentin
DVT ppx: SC Heparin
Code: Full
More than 30 minutes spent in discharge including
Final examination of the patient
Summarizing hospital stay
Instructions for continuing care to all relevant caregivers
Preparation of discharge records, prescriptions, and referral forms
Total time spent (in minutes): 41
Anticipated Discharge: Today
Subjective/Interval History
-
Date of Service: September 02, 2024
resting comfortably
no complaints
K 4.6 this AM
Objective Data
-
Labs:
Laboratory Results
09/02/24
07:45
WBC 8.0
Hgb 9.6 L
Hct 29.2 L
Plt Count 260 D
Sodium 138
Potassium 4.6
Chloride 109 H
Carbon Dioxide 21 L
BUN 81 H
Creatinine 2.1 H
Glucose 137 H
Calcium 8.4
Vital Signs:
Vital Signs
Temp Pulse Resp BP Pulse Ox
97.9 F 80 20 144/74 93
09/02/24 07:00 09/02/24 07:00 09/02/24 07:00 09/02/24 07:00 09/02/24 07:00
I&O
09/01/24 09/02/24 09/03/24
06:59 06:59 06:59
Intake Total 480 / 480 1380 / 1380
Output Total 1000 / 1000
Balance -520 / -520 1380 / 1380
Physical Exam
-
General: No Apparent Distress
HEENT: Normocephalic and Atraumatic
Respiratory: Negative Wheezes
Cardiac: Regular Rhythm and S1/S2
GI: Soft and Nontender
Musculoskeletal: No Edema
Neuro: AO x 3
Hematologic / Lymphatic: No Lymphadenopathy
Psych: Calm
Data Reviewed
-
Total Time Spent with Patient (in minutes): 42
Labs: Labs Reviewed by me
--- NOTE | 2024-09-02 10:24 | W.DS.TRANS ---
DC Summary - Digital Data Analyst
-
Discharge Instructions:
Sleep Apnea Risk Low
Discharge Diagnosis/Procedures Acute hypoxic respiratory failure, acute CHF,
sepsis post-COVID from pneumonia, IVY on CKD,
hyperkalemia
Diet Diabetic, Carb Controlled
Activity As tolerated
Bathing Restrictions None
Blood Work BMP weekly x 3 weeks
Other Services VN
Instructions: *CBC Heart Failure Instructions
Stand-Alone Forms:
Changes to Home Medications: No
Discharge Medications:
DC Medications w/original date entered in [employer]
bupropion HCl 150 mg tablet,12 hr sustained-release (Wellbutrin SR) 150 mg PO BID Depression 11/11/23
lorazepam 1 mg tablet 1 mg PO TID Anxiety 11/11/23
gabapentin 300 mg capsule 300 mg PO BID pain 07/09/24
carvedilol 12.5 mg tablet 12.5 mg PO BID #60 tabs 09/02/24
furosemide 20 mg tablet 20 mg PO MOWEFR@0800 #12 tabs 09/02/24
insulin lispro protamine-lispro 100 unit/mL (75-25) subcutaneous pen (Humalog Mix 75-25 KwikPen) 12 unit (0.12 mL) SC BID Diabetes #15 mL 09/02/24
prednisone 20 mg tablet 20 mg PO DAILY #30 tabs 09/02/24
sodium zirconium cyclosilicate 10 gram oral powder packet (Lokelma) 10 g PO MOFR #6 ea 09/02/24
tamsulosin 0.4 mg capsule 0.4 mg PO DAILY #30 caps 09/02/24
Home Medication Changes
Pending Results: No
Total time spent discharging patient (in min): 41
--- NOTE | 2024-09-02 10:50 | CM ---
Patient has been cleared for discharge today home with [facility] visiting nurses, patient reports that he has transport.
Plan; Home with [facility] visiting nurses.
Sowmya
[phone]
[2024-09-02 11:59] LABS: Glucose - Point of Care 50 mg/dl (70-99)
[2024-09-02 12:06] VITALS: BP 187/94
[2024-09-02 12:17] LABS: Glucose - Point of Care 66 mg/dl (70-99)
[2024-09-02 12:37] LABS: Glucose - Point of Care 125 mg/dl (70-99)
[2024-09-02 12:44] VITALS: BP 156/78
== END 2024-09-02 14:17 | disposition home health service (06) | DRG 871 ==
LOC: 4 WEST ACU 12:24
PROVIDERS: Internal Medicine Critical Care Medicine; Nurse Practitioner Gerontology; Specialist; ADMITTING PHYSICIAN Internal Medicine; ATTENDING PHYSICIAN Internal Medicine; CONSULT PHYSICIAN Internal Medicine; CONSULT PHYSICIAN Internal Medicine Cardiovascular Disease; CONSULT PHYSICIAN Student in an Organized Health Care Education/Training Program; EMERGENCY PHYSICIAN Emergency Medicine; FAMILY PHYSICIAN Internal Medicine
PROC: 5A0945A Assistance with Respiratory Ventilation, 24-96 Consecutive Hours, High Flow/Velocity Cannula (ICD-10-PCS; 2024-08-18)
PROC: 5A09357 Assistance with Respiratory Ventilation, Less than 24 Consecutive Hours, Continuous Positive Airway Pressure (ICD-10-PCS; 2024-08-20)
DX: A41.9 Sepsis, unspecified organism (principal); I50.33 Acute on chronic diastolic (congestive) heart failure; J96.01 Acute respiratory failure with hypoxia; J15.9 Unspecified bacterial pneumonia; N18.4 Chronic kidney disease, stage 4 (severe); I13.0 Hypertensive heart and chronic kidney disease with heart failure and stage 1 through stage 4 chronic kidney disease, or unspecified chronic kidney disease; N17.9 Acute kidney failure, unspecified; E87.20 Acidosis, unspecified; I47.20 Ventricular tachycardia, unspecified; L03.116 Cellulitis of left lower limb; M86.672 Other chronic osteomyelitis, left ankle and foot; J84.9 Interstitial pulmonary disease, unspecified; R65.20 Severe sepsis without septic shock; F41.9 Anxiety disorder, unspecified; M51.369 Other intervertebral disc degeneration, lumbar region without mention of lumbar back pain or lower extremity pain; E11.22 Type 2 diabetes mellitus with diabetic chronic kidney disease; E11.40 Type 2 diabetes mellitus with diabetic neuropathy, unspecified; Y95 Nosocomial condition; E78.00 Pure hypercholesterolemia, unspecified; U09.9 Post COVID-19 condition, unspecified; E11.69 Type 2 diabetes mellitus with other specified complication; B95.62 Methicillin resistant Staphylococcus aureus infection as the cause of diseases classified elsewhere; F32.A Depression, unspecified; E87.5 Hyperkalemia; D72.10 Eosinophilia, unspecified; E11.65 Type 2 diabetes mellitus with hyperglycemia; K21.9 Gastro-esophageal reflux disease without esophagitis; Z86.14 Personal history of Methicillin resistant Staphylococcus aureus infection; Z11.52 Encounter for screening for COVID-19; Z90.49 Acquired absence of other specified parts of digestive tract
CPT/HCPCS: 36600; 71045; 71046; 71250; 80048; 80053; 80202; 82550; 82805; 82947; 82962; 83605; 83735; 83880; 84100; 84132; 85025; 85027; 85610; 85652; 85730; 86140; 87040; 87070; 87205; 87502; 87811; 93005; 94640; 94660; 94669; 96365; 96375; 97110; 97116; 97163; 97167; 97530; 97535; 99285; J0878

== ENCOUNTER → 2024-09-08 12:48 | Outpatient (REF) | payer MEDICARE, OTHER, SELFPAY ==
[2024-09-08 13:51] LABS: Blood Urea Nitrogen 64 mg/dl (9-20); Calcium 8.1 mg/dl (8.4-10.2); Carbon Dioxide 22 mmol/L (22-30); Chloride 112 mmol/L (98-107); Glucose 217 mg/dl (70-99); Potassium 4.2 mmol/L (3.5-5.1); Sodium 142 mmol/L (135-145); eGFR 34.72
== END ==
LOC: REG 12:48
PROVIDERS: ATTENDING PHYSICIAN Internal Medicine; FAMILY PHYSICIAN Internal Medicine; REFERRING PHYSICIAN Internal Medicine Nephrology
DX: E87.5 Hyperkalemia (principal)
CPT/HCPCS: 36415; 80048

== ENCOUNTER → 2024-09-15 13:39 | Outpatient (REF) | payer MEDICARE, OTHER, SELFPAY ==
[2024-09-15 15:05] LABS: Blood Urea Nitrogen 62 mg/dl (9-20); Calcium 7.9 mg/dl (8.4-10.2); Carbon Dioxide 17 mmol/L (22-30); Chloride 110 mmol/L (98-107); Glucose 332 mg/dl (70-99); Potassium 4.4 mmol/L (3.5-5.1); Sodium 137 mmol/L (135-145); eGFR 29.58
== END ==
LOC: REG 13:39
PROVIDERS: ATTENDING PHYSICIAN Orthopaedic Surgery Foot and Ankle Surgery; FAMILY PHYSICIAN Internal Medicine; REFERRING PHYSICIAN Internal Medicine
DX: E87.5 Hyperkalemia (principal)
CPT/HCPCS: 36415; 80048

== ENCOUNTER → 2024-09-23 13:15 | Outpatient (REF) | payer MEDICARE, OTHER, SELFPAY ==
[2024-09-23 15:08] LABS: Blood Urea Nitrogen 67 mg/dl (9-20); Carbon Dioxide 18 mmol/L (22-30); Chloride 111 mmol/L (98-107); Glucose 179 mg/dl (70-99); Potassium 4.6 mmol/L (3.5-5.1); Sodium 140 mmol/L (135-145); eGFR 24.58
== END ==
LOC: REG 13:15
PROVIDERS: ATTENDING PHYSICIAN Internal Medicine; FAMILY PHYSICIAN Internal Medicine; OTHER PHYSICIAN Internal Medicine Nephrology
DX: E87.5 Hyperkalemia (principal)
CPT/HCPCS: 36415; 80048

== ENCOUNTER 2024-09-30 16:32 | Inpatient (IN) | payer MEDICARE, OTHER, SELFPAY ==
[2024-09-30] VITALS (7 sets, daily range): BP systolic 165–198; BP diastolic 88–107; BMI 26.4
[2024-09-30 11:41] LABS: % Basophils 0.2 % (0-2); % Eosinophils 0.4 % (0-6); % Immature Granulocytes 0.6 % (0-0.5); % Lymphocytes 6.7 % (20.5-51.1); % Monocytes 4.1 % (1.7-9.3); Absolute Lymphocytes 0.3 10^3/uL (1.2-3.4); Absolute Monocytes 0.2 10^3/uL (0.1-0.6); Absolute Neutrophils 4.5 10^3/uL (1.4-6.5); Hematocrit 28.1 % (39.0-52.0); Hemoglobin 9.2 g/dL (13.0-18.0); Mean Corp Hgb Conc. 32.7 g/dL (33.0-37.0); Mean Corpuscular Hgb 28.8 pg (27.0-31.0); Mean Corpuscular Volume 88.1 fL (80.0-94.0); Mean Platelet Volume 9.3 fL (7.4-10.4); Nucleated Red Blood Cells % 0 % (-); Platelet Count 153 10^3/uL (130-400); Red Blood Cell Count 3.19 10^6/uL (4.70-6.10); Red Cell Dist. Width 20.7 % (11.5-14.5); White Blood Cell Count 5.1 10^3/uL (4.8-10.8)
[2024-09-30 12:02] LABS: ALT (SGPT) 42 U/L (0-50); AST (SGOT) 19 U/L (17-59); Albumin 2.6 g/dl (3.5-5.0); Alkaline Phosphatase 146 U/L (38-126); Blood Urea Nitrogen 72 mg/dl (9-20); Calcium 7.6 mg/dl (8.4-10.2); Carbon Dioxide 20 mmol/L (22-30); Chloride 107 mmol/L (98-107); Glucose 243 mg/dl (70-99); Potassium 4.9 mmol/L (3.5-5.1); Sodium 135 mmol/L (135-145); Total Bilirubin 0.3 mg/dl (0.2-1.3); Total Protein 5.2 g/dl (6.3-8.2); eGFR 18.18
[2024-09-30 12:10] LABS: NT-proBNP > 27000 pg/ml
--- NOTE | 2024-09-30 15:26 | ED.GENMED ---
History of Present Illness
General
Chief Complaint: Swelling
Source: patient
Exam Limitations: none
Time Seen by Provider: 09/30/24 15:17
History of Present Illness
History of Present Illness:
64-year-old male sent in by cardiology office for weight gain shortness of breath and volume overload. He was here in August and has had over 30 pound weight gain since then. He is on Lasix 20 mg daily. He notes shortness of breath. He denies
a fever. He notes a minimal cough. No chest pain. He does note abdominal distention.
Past History
Past History
ED Past Medical History: HTN, IDDM, Psychiatric (Anxiety) and Other (Low back pain)
ED Past Surgical History: Orthopedic (Back surgeries) and Other (Amputation left fifth toe)
Social History
Tobacco: Non-smoker
Alcohol: Occasional
Drug: None
Personal:
Living: other (Resides with brother )
Employment: Disabled
Family History
Family History: Other (Noncontributory)
Phy Exam
Physical Exam
Physical Exam:
General: Well-developed male with increased work of breathing
HEENT: Normocephalic atraumatic
Heart: Regular rate and rhythm
Lungs: Slightly diminished with Rales at the bases
Abdomen is soft nontender edema noted over the abdominal wall
Extremities: Significant pitting edema bilateral lower extremities
Scores
Heart Failure Risk
Heart Failure Risk Score: Not Applicable
Course
Orders/Labs/Results
Orders:
Orders
09/30/24 11:21
Electrocardiogram (*1) Urgent
Reason for Study: Shortness of Breath
09/30/24 11:22
EKG- Treatment ONCE
Chest [CR Chest - 2 Views ] Urgent
Comment:
Reason For Exam: SOB
09/30/24 11:28
Complete Blood Count/With Diff Urgent
Comprehensive Metabolic Panel Urgent
NT-proBNP Urgent
Troponin I Urgent
09/30/24 15:25
Furosemide [Lasix] 60 mg IV NOW STA
Abnormal Lab Results
09/30/24
11:28
RBC 3.19 L 10^6/uL
(4.70-6.10)
Hgb 9.2 L g/dL
(13.0-18.0)
Hct 28.1 L %
(39.0-52.0)
MCHC 32.7 L g/dL
(33.0-37.0)
RDW 20.7 H %
(11.5-14.5)
Absolute Lymphs (auto) 0.3 L 10^3/uL
(1.2-3.4)
Immature Gran % 0.6 H %
(0-0.5)
Neutrophils % 88.0 H %
(42.2-75.2)
Lymphocytes % 6.7 L %
(20.5-51.1)
Carbon Dioxide 20 L mmol/L
(22-30)
BUN 72 H mg/dl
(9-20)
Creatinine 3.6 H mg/dL
(0.7-1.3)
Glucose 243 H mg/dl
(70-99)
Calcium 7.6 L mg/dl
(8.4-10.2)
Alkaline Phosphatase 146 H U/L
(38-126)
Total Protein 5.2 L g/dl
(6.3-8.2)
Albumin 2.6 L g/dl
(3.5-5.0)
09/30/24 11:28
09/30/24 11:28
Vital Signs
Initial and Last Documented VS:
Initial Vital Signs
Temp Pulse Resp BP Pulse Ox
98.4 F 65 18 178/92 99
09/30/24 11:18 09/30/24 11:18 09/30/24 11:18 09/30/24 11:18 09/30/24 11:18
Last Documented Vital Signs
Temp Pulse Resp BP Pulse Ox
97.2 F 67 18 184/100 97
09/30/24 14:20 09/30/24 14:20 09/30/24 14:20 09/30/24 14:20 09/30/24 14:20
MDM/Problems Addressed
Differential Diagnosis Includes:
Patient sent in for volume overload. Review of chart documents most recent echo showing EF of 60-65%. He is not hypoxic at rest but does have increased work of breathing. He has had significant weight gain since last visit. X-ray reviewed
interstitial opacities suggestive of pneumonia however clinically patient does not have a fever or a white count is not coughing. I suspect x-ray finding is more likely related to CHF. IV Lasix ordered will admit to hospitalist
*Critical Care Note
Total Time (30-74mins, 75-104mins- exclusive of procedures): Not Applicable
Update Note
Update Note:
Creatinine also slightly bumped today
ED Attending Note
-
Portions of this chart may have been created with voice recognition software.� Occasional wrong word or��sound alike� substitutions may have occurred due to the inherent limitations of voice recognition software.
Discharge Plan
Departure
Patient Disposition: Admit
Date of Disposition: 09/30/24
Time of Disposition: 15:36
Presentation/result/management discussed w/ accepting MD/DO: Hospitalist
Discharge Problem:
Volume overload, IVY (acute kidney injury)
Prescriptions:
No Action
lorazepam 1 mg tablet
1 mg PO TID
Patient Comments:
Last filled 05/14/24 #270 for 90 days
bupropion HCl [Wellbutrin SR] 150 mg Tablet Sustained-Release 12 Hr
150 mg PO BID
gabapentin 300 mg Capsule
300 mg PO BID
carvedilol 12.5 mg Tablet
12.5 mg PO BID Qty: 60 0RF
tamsulosin 0.4 mg Capsule
0.4 mg PO DAILY Qty: 30 0RF
furosemide 20 mg Tablet
20 mg PO MOWEFR@0800 Qty: 12 0RF
Rx Instructions:
Sunday, Sunday, Sunday at 8 AM
prednisone 20 mg Tablet
20 mg PO DAILY Qty: 30 1RF
Lokelma 10 gram powder in packet
10 g PO MOFR Qty: 6 1RF
Rx Instructions:
take 10 grams on Sunday and Sunday weekly x 3 weeks
insulin lispro protamin-lispro [Humalog Mix 75-25 KwikPen] 100 unit/mL (75-25) insulin pen
12 unit SC BID Qty: 15 1RF
Rx Instructions:
BID at 8 AM and 5 PM
Interventions
Interventions:
*Risk Screen - Suicide Last Done: 09/30/24 11:18
*General Assessment Last Done: 09/30/24 11:18
*Neglect/Abuse Screening Last Done: 09/30/24 11:18
Discharge Date and Time
Print Language: SETSWANA
--- NOTE | 2024-09-30 15:43 | HPS.HSE ---
Family Physician
-
Family Physician: Nik Dumont
Chief Complaint
-
Lower Extremity Edema and Weight Gain
History of Present Illness
Patient is a 64 y/o male past medical history of CHF, DM, Recent COVID Pneumonia and CKD who presents with increased lower extremity edema and weight gain. Patient increasing lower extremity edema and abdominal distention. He notes increasing
dyspnea on exertion. Patient reports he was weighing himself at home and his weight was staying the same despite noting the edema. He saw his training instructor today who found that he had gained 30lbs since his admission in August and he was sent to
the emergency department for evaluation.
Medical History
Past Medical History
Past Medical History: Reports Other
Additional Past Medical History:
Chronic HFpEF
Diabetes Mellitus, Type II
CKD IV
Essential Hypertension
Lumbar DDD
Peripheral Neuropathy
Anxiety / Depression
BPH
Post-COVID Interstitial Lung Disease
Past Surgical History: Reports Other
Additional Past Surgical History:
Lumbar discectomy with fusion
Cholecystectomy
Left 4th Toe Amputation
Left foot 5th metatarsal amputation
Social History
Tobacco: Non-smoker
Alcohol: None
Drug: None
Personal: Single
Living: With Family
Employment: Retired
Family History
Family History: Not pertinent
Allergies / Home Medications
Allergies reflects when Allergies were last updated in [facility].
Home Medications with original date entered in [facility]
Allergy/Medication List:
Allergies
Allergy/AdvReac Type Severity Reaction Status Date / Time
No Known Allergies Allergy Verified 09/30/24 11:18
Home Medications
bupropion HCl 150 mg tablet,12 hr sustained-release (Wellbutrin SR) 150 mg PO BID Depression 11/11/23
lorazepam 1 mg tablet 1 mg PO TID Anxiety 11/11/23
gabapentin 300 mg capsule 300 mg PO BID pain 07/09/24
carvedilol 12.5 mg tablet 12.5 mg PO BID #60 tabs 09/02/24
furosemide 20 mg tablet 20 mg PO MOWEFR@0800 #12 tabs 09/02/24
insulin lispro protamine-lispro 100 unit/mL (75-25) subcutaneous pen (Humalog Mix 75-25 KwikPen) 12 unit (0.12 mL) SC BID Diabetes #15 mL 09/02/24
prednisone 20 mg tablet 20 mg PO DAILY #30 tabs 09/02/24
sodium zirconium cyclosilicate 10 gram oral powder packet (Lokelma) 10 g PO MOFR #6 ea 09/02/24
tamsulosin 0.4 mg capsule 0.4 mg PO DAILY #30 caps 09/02/24
acetaminophen 500 mg tablet (Tylenol Extra Strength) 1,000 mg PO Q6HPRN PRN mild pain 09/30/24
Review of Systems
-
A 12 point ROS was completed and negative except as noted: Yes
Constitutional: Denies Fever or Chills
Respiratory: Reports Trouble Breathing; Denies Cough
Cardiac: Denies Chest Pain or Palpitations
Physical Exam
Vital Signs
Vital Signs
Temp Pulse Resp BP Pulse Ox
97.2 F 67 18 184/100 97
09/30/24 14:20 09/30/24 14:20 09/30/24 14:20 09/30/24 14:20 09/30/24 14:20
Physical Exam
General: Comfortable and Conversant
HEENT: Anicteric and Moist mucous membranes
Respiratory: Wheezes (Throughout) and Non Labored Respirations
Cardiac: S1/S2 and Regular Rhythm
GI: Soft and Non Tender
Rectal: Deferred by Provider
Musculoskeletal: No Clubbing, No Cyanosis and Other (+4 pitting edema bilateral feet up through thighs, groin and abdomen)
Skin: Warm and Dry
Neuro: Awake, Alert, Oriented and Nonfocal/grossly intact
Psych: Calm
Laboratory Results
-
09/30/24 11:28
09/30/24 11:28
Laboratory Results
Total Bilirubin 0.3 mg/dl (0.2-1.3) 09/30/24 11:28
AST 19 U/L (17-59) 09/30/24 11:28
ALT 42 U/L (0-50) 09/30/24 11:28
Alkaline Phosphatase 146 U/L (38-126) H 09/30/24 11:28
Troponin I 0.020 ng/ml 09/30/24 11:28
Data Reviewed
-
Diagnostic Radiology: Report Reviewed by me
Lab Data: Labs Reviewed by me
Impression/Plan
-
Acute on Chronic HFpEF
-Consult Cardiology
-Continue Lasix 40mg IV BID
-Monitor Is&Os and Daily Weights
IVY on CKD IV (Baseline Cr 2.1) - Likely Cardiorenal
-Consult Nephrology
-Monitor creatinine closely while on diuretics
Diabetes Mellitus, Type II
-Continue Humalog Mix at slightly decreased doses in setting of IVY
-Monitor sugars and continue coverage insulin
Post-COVID Interstitial Lung Disease
-Per prior notes plan was for patient to stay on prednisone 20mg Daily until seen by Pulmonary as outpatient and to trend CRP levels - Patient has not seen Pulmonary and does not recall having a scheduled appointment
-Continue prednisone 20mg Daily
-Check CRP
-Consider Pulmonary Consult
Essential Hypertension
-Continue Coreg with hold parameters
Peripheral Neuropathy
-Continue Gabapentin
Anxiety / Depression
-Continue Wellbutrin
BPH
-Continue Flomax
DVT proph: SC Heparin
Code Status: Full Code
--- NOTE | 2024-09-30 15:59 | W.PN.UPDATE ---
Update Note
Progress Note Update
This is an addendum to the H&P written by Vianey Mora on 09/30/2024. Patient seen and examined independently with PA.
63-year-old male past medical history of diabetes, diabetic neuropathy, prior osteomyelitis of left fifth toe status post amputation 2 years ago, hypertension, anxiety, CKD 4, anxiety/depression, heart failure, MRSA cellulitis, nephrotic range
proteinuria, left foot osteomyelitis status post toe amputation status post daptomycin, chronic anemia, presenting with weight gain, shortness of with volume overload. He has gained 30 pounds since recent admission. Also with abdominal distention.
Labs show stable anemia. Cardiac BNP greater than 27,000 which is substantially increased from 7000 in August. Creatinine of 3.6 which is higher than his baseline of 1.7.
Chest x-ray interpreted as moderate diffuse coarsening of the interstitial markings throughout both lungs consistent with diffuse interstitial pneumonia. Clinically this is unlikely to be pneumonia and rather pulmonary edema.
Patient with acute CHF exacerbation and IVY likely cardiorenal on CKD stage IV.
Continue IV Lasix. Nephrology consulted for management of volume overload/IVY.
--- NOTE | 2024-09-30 16:11 | W.PN.CD ---
Addendum entered and electronically signed by Jose Roberto Reilly MD 09/30/24 17:43:
I saw and examined the patient.
The INSULATION CUPOLA CHARGER's note was reviewed and I agree with the note.
Comment:
64M with hypertension, hyperlipidemia, type 2 diabetes mellitus, CKD4 (known diabetic nephropathy), and HFpEF who presented to an office visit today with massive volume overload and was sent to the ER by KAYLA Pink. He is up 23 kg compared to
his discharge weight in August 2024. He has an IVY on CKD with creatinine 3.6 and proBNP is > 27,000. He will need several days to a week of IV diuresis to improve his fluid status. Prior to admission he was only taking furosemide 20 mg on
Sunday. We will start with 80 mg IV Lasix twice daily given his reduced GFR and trend his creatinine and volume exam.
Original Note:
Today's Communication / Plan
-
This is a consultation summary. Please see scanned consultation.
Diuresis per nephrology
Impression / Plan
-
IMPRESSION/PLAN: 64M with hypertension, hyperlipidemia, type 2 diabetes mellitus, CKD4 (known diabetic nephropathy), with diabetic neuropathy, MRSA bacteremia with left foot osteomyelitis (on daptomycin), chronic kidney disease, HFpEF recent
discharge after hospitalization for lower extremity cellulitis, COVID-19 pneumonia and HFpEF who presented to the emergency department with increasing weakness and shortness of breath after discharged just a couple days ago.
Survey Chief: Dr. Nuñez
HFpEF, acute on chronic
-He has an elevated proBNP in addition to an VIY and a weight gain of greater than 20kg since his last admission
-Pitting edema up to mid thigh, he believes his home scale is broken
-He reports adherence with furosemide, although he does not feel he voids anymore then on non-furosemide days
-Diuresis per nephrology given his IVY on CKD
-GDMT is limited with his underlying renal disease, would not initiate SGLT2 without nephrology clearance
-Trend daily weight, I's/O, and BMP with diuresis
-Preserved LVEF with mild cLVH 06/2024
-Heart failure education
IVY on CKD Stage IV
-Nephrology following given the need for acute diuresis
NSVT, continue beta-lobo
Hyperkalemia, on [facility] Mondays and Fridays
History of MRSA osteomyelitis
Type 2 diabetes mellitus, per primary
Anemia, of chronic disease, per primary, no acute bleeding
Physical Exam
Vital Signs/Labs
Vital Signs
Temp Pulse Resp BP Pulse Ox
97.2 F 67 18 184/100 97
09/30/24 14:20 09/30/24 14:20 09/30/24 14:20 09/30/24 14:20 09/30/24 14:20
09/30/24 11:28
09/30/24 11:28
09/30/24
11:28
Tyj-U-Mcbbizdnwjr Pept > 36090
LAB Results
09/30/24
11:28
Troponin I 0.020
Physical Exam
Constitutional: No acute distress and Comfortable
EENT: Anicteric and Moist mucous membranes
Cardiovascular: Rhythm & rate is regular, Pedal edema present and S1S2 is normal
Respiratory: Respiratory effort normal and Lungs clear to auscul.
GI: Soft, Distention absent, Flat and Non tender
Neuro/Psych: AO x 3
Other: Skin (Warm and dry with pitting edema)
Data Reviewed
-
Date of Service: September 30, 2024
[2024-09-30] MEDS: LASIX 60 MG IV (16:15)
[2024-09-30 19:58] LABS: Glucose - Point of Care 336 mg/dl (70-99)
[2024-09-30] MEDS: NOVOLOG MIX 70/30 FLEXPEN SC (20:29)
[2024-09-30] MEDS: NOVOLOG FLEXPEN-LOW RESISTANCE 4 UNITS SC (21:05)
--- NOTE | 2024-09-30 21:16 | W.CON.NEPH ---
Consultation
-
Date/Time Consultation Requested: September 30, 2024 at 3 PM
Date/Time Consultation Performed: September 30, 2024 at 9 PM
Requesting Provider: Vianey Sidhu
Performing Provider: Dr. Kun Sorto
Reason for Consultation: volume overloaded
Medical History
-
Chief Complaint: volume overload and a chaotic
History of Present Illness:
The patient is a 63-year-old male with chronic kidney disease s/p biopsy confirmed Diabetic nephropathy. He has a history of hypertension which has been controlled on the combinations of his carvedilol and lisinopril. He has longstanding diabetes
maintained chronically on insulin and has microvascular complications including diabetic neuropathy, nephropathy. chr anemia with heme +ve stool, L foot osteomyelitis currently status post IV daptomycin through 08/25/2024 CHF and COPD. he said
previous admissions for a covariate in a CHF and [place] I\\
Nephrology consulted for IVY and CHF. is gained 25+ pounds and since last admission he was discharged September 02 for the cr of 2.1 he presents today in a IVY and CHF significant volume overload with a creatinine of 3.6
has no chest pain nausea vomiting
Past Medical History
DM II, biopsy-proven diabetic nephropathy
Hypertension
CKD 3g (1.6)
Lumbar DDD
Peripheral Neuropathy
Anxiety
Depression
DCHF
COVID 07/2024
Past Surgical History: Other (Lumbar discectomy with fusion Cholecystectomy Left foot 4th and 5th metatarsal amputation)
Social History
Tobacco: Non-Smoker
Alcohol: None
Drug: None
Family History
no CKD
Family History: Not Pertinent
Allergies / Home Medications
Allergy/AdvReac Type Severity Reaction Status Date / Time
No Known Allergies Allergy Verified 09/30/24 11:18
�Medication �Instructions �Recorded �Confirmed �Type
bupropion HCl 150 mg tablet,12 hr 150 mg PO BID Depression 11/11/23 09/30/24 History
sustained-release (Wellbutrin SR)
lorazepam 1 mg tablet 1 mg PO TID Anxiety 11/11/23 09/30/24 History
gabapentin 300 mg capsule 300 mg PO BID pain 07/09/24 09/30/24 History
carvedilol 12.5 mg tablet 12.5 mg PO BID #60 tabs 09/02/24 09/30/24 Rx
furosemide 20 mg tablet 20 mg PO MOWEFR@0800 #12 tabs 09/02/24 09/30/24 Rx
insulin lispro protamine-lispro 12 unit (0.12 mL) SC BID Diabetes 09/02/24 09/30/24 Rx
100 unit/mL (75-25) subcutaneous #15 mL
pen (Humalog Mix 75-25 KwikPen)
prednisone 20 mg tablet 20 mg PO DAILY #30 tabs 09/02/24 09/30/24 Rx
sodium zirconium cyclosilicate 10 10 g PO MOFR #6 ea 09/02/24 09/30/24 Rx
gram oral powder packet (Lokelma)
tamsulosin 0.4 mg capsule 0.4 mg PO DAILY #30 caps 09/02/24 09/30/24 Rx
acetaminophen 500 mg tablet 1,000 mg PO Q6HPRN PRN mild pain 09/30/24 09/30/24 History
(Tylenol Extra Strength)
Review of Systems
-
weight gain and edema
Physical Exam
Vital Signs
Vital Signs
Temp Pulse Resp BP Pulse Ox
97.2 F 67 17 173/88 96
09/30/24 14:20 09/30/24 19:30 09/30/24 19:47 09/30/24 19:00 09/30/24 19:30
Lab Results
WBC 5.1 10^3/uL (4.8-10.8) 09/30/24 11:28
RBC 3.19 10^6/uL (4.70-6.10) L 09/30/24 11:
Hgb 9.2 g/dL (13.0-18.0) L 09/30/24 11:
Hct 28.1 % (39.0-52.0) L 09/30/24 11:28
Plt Count 153 10^3/uL (130-400) 09/30/24 11:28
Sodium 135 mmol/L (135-145) 09/30/24 11:
Potassium 4.9 mmol/L (3.5-5.1) 09/30/24 11:
Chloride 107 mmol/L (98-107) 09/30/24 11:
Carbon Dioxide 20 mmol/L (22-30) L 09/30/24 11:28
BUN 72 mg/dl (9-20) H 09/30/24 11:28
Creatinine 3.6 mg/dL (0.7-1.3) H 09/30/24 11:
eGFR 18.18 09/30/24 11:28
Glucose 243 mg/dl (70-99) H 09/30/24 11:28
Calcium 7.6 mg/dl (8.4-10.2) L 09/30/24 11:28
Swm-P-Temgovqoyey Pept > 55100 pg/ml 09/30/24 11:28
Albumin 2.6 g/dl (3.5-5.0) L 09/30/24 11:28
Physical Exam
General no acute distress
HEENT no cephalic atraumatic extraocular muscle intact no scleral icterus no JVD neck supple
lungs clear to auscultation bilateral
heart regular S1-S2 positive
abdomen soft nontender positive bowel sounds
extremities +3 bilateral edema
Neurologically nonfocal alert and oriented x 3
Skin no lesions no abrasions no petechiae
Psych normal affect no bizarre behavior
Data Reviewed
-
Radiology: Image Personally Visualized and interpreted
Labs: Labs Reviewed by me
Assessment/Plan
-
63-year-old male with chronic kidney disease s/p biopsy confirmed Diabetic nephropathy. He has a history of hypertension which has been controlled on the combinations of his carvedilol and lisinopril. He has longstanding diabetes maintained
chronically on insulin and has microvascular complications including diabetic neuropathy, nephropathy. chr anemia with heme +ve stool, L foot osteomyelitis currently status post IV daptomycin through 08/25/2024 CHF and COPD. he said previous
admissions for a covariate in a CHF and [place] I\\
Nephrology consulted for IVY and CHF. is gained 25+ pounds and since last admission he was discharged September 02 for the granting of 2.1 he presents today in a IVY and CHF significant volume overload with a creatinine of 3.6
impression:
acute or chronic kidney disease stage 3B/4.
Anasarca.
Diabetic nephropathy.
Hypertension.
Anemia of chronic disease.
Plan.
Aggressive IV diuretics.
Sodium restriction.
Daily weights.
Avoid SGLT2 inhibitor's.
Hold JOSE inhibitor or angiotensin receptor lobo..
No indication for acute dialysis at this time but with his nephrotic range proteinuria and hypo albumin decreased effective arterial blood volume will be difficult to diuresis him without worsening renal function.
Discuss this with the patient will see his response to a diuretics but certainly may require hemodialysis.
Total Time Spent with Patient (in minutes): 32
[2024-09-30] MEDS: COREG 12.5 MG PO (21:21)
[2024-09-30] MEDS: NEURONTIN 300 MG PO (21:21)
[2024-09-30] MEDS: WELLBUTRIN SR (12 hour sustained release) 150 MG PO (21:28)
[2024-09-30] MEDS: LASIX 80 MG IV (21:28)
[2024-10-01] VITALS (9 sets, daily range): BP systolic 174–196; BP diastolic 87–103; BMI 27.5; BMI 26.4
[2024-10-01] MEDS: HEPARIN 5000 UNITS SC ×4 (02:27→23:45)
[2024-10-01 05:58] LABS: Hemoglobin 8.9 g/dL (13.0-18.0); Mean Corpuscular Hgb 28.5 pg (27.0-31.0); Mean Corpuscular Volume 86.5 fL (80.0-94.0); Mean Platelet Volume 9.5 fL (7.4-10.4); Platelet Count 157 10^3/uL (130-400); Red Blood Cell Count 3.12 10^6/uL (4.70-6.10); Red Cell Dist. Width 20.6 % (11.5-14.5); White Blood Cell Count 4.6 10^3/uL (4.8-10.8)
[2024-10-01 06:17] LABS: Blood Urea Nitrogen 75 mg/dl (9-20); Calcium 7.7 mg/dl (8.4-10.2); Carbon Dioxide 19 mmol/L (22-30); Chloride 109 mmol/L (98-107); Estimated Creatinine Clearance 27 ml/min; Glucose 224 mg/dl (70-99); Magnesium 2.2 mg/dl (1.6-2.3); Potassium 4.5 mmol/L (3.5-5.1); Sodium 134 mmol/L (135-145); eGFR 20.18
[2024-10-01 07:24] LABS: Glucose - Point of Care 204 mg/dl (70-99)
[2024-10-01] MEDS: NOVOLOG MIX 70/30 FLEXPEN 10 UNITS SC ×2 (10:07→17:13)
[2024-10-01] MEDS: NOVOLOG FLEXPEN-LOW RESISTANCE 2 UNITS SC (10:11)
[2024-10-01] MEDS: NEURONTIN 300 MG PO ×2 (10:16→19:35)
[2024-10-01] MEDS: LASIX 80 MG IV ×2 (10:16→16:59)
[2024-10-01] MEDS: FLOMAX 0.4 MG PO (10:18)
[2024-10-01] MEDS: COREG 12.5 MG PO ×2 (10:18→19:35)
[2024-10-01] MEDS: WELLBUTRIN SR (12 hour sustained release) 150 MG PO ×2 (10:19→19:35)
[2024-10-01] MEDS: DELTASONE 20 MG PO (10:19)
--- NOTE | 2024-10-01 10:19 | W.PN.HOSP.TC ---
Today's Communication/Plan
-
continue IV diuresis and monitor labs, weights etc
follow Nephrology and Cardiology
Assessment / Plan
Assessment / Plan
Assessment:
Acute on chronic heart failure exacerbation, proBNP greater than 27,000
- continue IV Lasix - requires intensive monitoring of I/Os, weights, lytes
- Cardiology and Nephrology following
Acute kidney injury on CKD stage 4 (baseline Cr 1.7) - acute cardiorenal state in setting of CHF
Acute Metabolic acidosis
- Nephrology following
Recent hospitalization for post-COVID PNA
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
- completed Molnupiravir/steroids along with Meropenem course and remains on Prednisone 20mg
- will reduce to 10mg daily and continue until seen by Pulm in office
Steroid induced azotemia
History of MRSA cellulitis
IDDM
steroid induced hyperglycemia
- recent A1c 5.7%
- continue 70/30 10 units BID + SSI
- TUG CAPTAIN consulted for insulin management
Nephrotic range proteinuria
Positive proteinase 3 antibodies
essential Hypertension
- continue Coreg
Chronic anemia
Left foot osteomyelitis treated outpatient with daptomycin last Month
Anxiety
- continue Ativan/Gabapentin
DVT ppx: SC Heparin
Code: Full
Anticipated Discharge: > 48 hours
Subjective/Interval History
-
Date of Service: October 01, 2024
reports improving abd distention, weight down 1 kg per scales
denies SOB with rest, no cp
Objective Data
-
Labs:
Laboratory Results
10/01/24
05:35
WBC 4.6 L
Hgb 8.9 L
Hct 27.0 L
Plt Count 157
Sodium 134 L
Potassium 4.5
Chloride 109 H
Carbon Dioxide 19 L
BUN 75 H
Creatinine 3.3 H
Glucose 224 H
Calcium 7.7 L
Vital Signs:
Vital Signs
Temp Pulse Resp BP Pulse Ox
97.2 F 69 19 184/103 96
09/30/24 14:20 10/01/24 04:00 10/01/24 04:00 10/01/24 00:00 10/01/24 04:00
I&O
09/30/24 10/01/24 10/02/24
06:59 06:59 06:59
Output Total 1575 / 1575
Balance -1575 / -1575
Physical Exam
-
General: No Apparent Distress
HEENT: Normocephalic and Atraumatic
Cardiac: Regular Rhythm and S1/S2
GI: Distended (slightly from edema)
Musculoskeletal: Edema, Right Lower Extrem and Edema, Left Lower Extrem
Neuro: AO x 3
Hematologic / Lymphatic: No Lymphadenopathy
Psych: Calm
Data Reviewed
-
Total Time Spent with Patient (in minutes): 51
Labs: Labs Reviewed by me
--- NOTE | 2024-10-01 10:21 | W.PN.CD ---
Today's Communication / Plan
-
continue lasix 80mg IV bid
add hydralazine
Impression / Plan
-
IMPRESSION/PLAN: 64M with hypertension, hyperlipidemia, type 2 diabetes mellitus, CKD4 (known diabetic nephropathy), with diabetic neuropathy, MRSA bacteremia with left foot osteomyelitis (on daptomycin), chronic HFpEF recent discharge after
hospitalization for lower extremity cellulitis, COVID-19 pneumonia and HFpEF who presented to the emergency department with increasing weakness and shortness of breath after discharged just a couple days ago.
Wool Broker: Dr. Nuñez
HFpEF, acute on chronic
-high risk situation with cardiorenal syndrome, IVY
-close monitoring of labs, tele, weighst
-echo 06/2024: EF 60-65%, no sig valve disease
-GDMT is limited with his underlying renal disease (no MRA or SGLT2i)
-continue lasix 80mg IV bid
IVY on CKD Stage IV
-Nephrology consulted
HTN: uncontrolled and severely elevated
-continue coreg
-avoid nephrotoxic agents
-add hydralazine 25mg tid
NSVT, continue beta-lobo
Hyperkalemia, on [facility] Mondays and Fridays
History of MRSA osteomyelitis
Type 2 diabetes mellitus, per primary
Anemia, of chronic disease, per primary, no acute bleeding
Physical Exam
Vital Signs/Labs
Vital Signs
Temp Pulse Resp BP Pulse Ox
98.8 F 77 16 196/98 95
10/01/24 10:21 10/01/24 10:21 10/01/24 10:21 10/01/24 10:21 10/01/24 10:21
09/30/24 10/01/24 10/02/24
06:59 06:59 06:59
Actual Weight 99.7 kg
10/01/24 05:35
10/01/24 05:35
Magnesium 2.2 mg/dl (1.6-2.3) 10/01/24 05:35
09/30/24
11:28
Avu-A-Oyswnvxpayu Pept > 37299
LAB Results
09/30/24
11:28
Troponin I 0.020
Physical Exam
Constitutional: No acute distress
EENT: Moist mucous membranes
Cardiovascular: Rhythm & rate is regular, Systolic murmur absent, Pedal edema present and JVD present
Respiratory: Respiratory effort normal
Neuro/Psych: AO x 3
Data Reviewed
-
Date of Service: October 01, 2024
EKG: Other (Tele: SR 60s)
Labs: Labs Reviewed by me
[2024-10-01] MEDS: APRESOLINE 25 MG PO ×3 (11:30→19:35)
[2024-10-01] MEDS: ATIVAN 1 MG PO ×3 (12:53→21:56)
[2024-10-01 12:58] LABS: Glucose - Point of Care 289 mg/dl (70-99)
[2024-10-01] MEDS: NOVOLOG FLEXPEN-LOW RESISTANCE 3 UNITS SC ×2 (13:34→17:15)
--- NOTE | 2024-10-01 14:25 | W.PN.NEPH.PH ---
Today's Communication / Plan
-
Maintain IV diuretics
Assessment/Plan
-
63-year-old male with chronic kidney disease s/p biopsy confirmed Diabetic nephropathy. He has a history of hypertension which has been controlled on the combinations of his carvedilol and lisinopril. He has longstanding diabetes maintained
chronically on insulin and has microvascular complications including diabetic neuropathy, nephropathy. chr anemia with heme +ve stool, L foot osteomyelitis currently status post IV daptomycin through 08/25/2024 CHF and COPD. he said previous
admissions for a covariate in a CHF and [place] I\\
Nephrology consulted for IVY and CHF. is gained 25+ pounds and since last admission he was discharged September 02 for the granting of 2.1 he presents today in a IVY and CHF significant volume overload with a creatinine of 3.6
impression:
acute or chronic kidney disease stage 3B/4.
Anasarca.
Diabetic nephropathy.
Hypertension.
Anemia of chronic disease.
Plan.
Aggressive IV diuretics. 80 mg IV twice daily for obvious volume overload
Sodium restriction.
Hypertension persist, cardiology added hydralazine 25mg TID
Daily weights.
Avoid SGLT2 inhibitor's.
Hold JOSE inhibitor or angiotensin receptor lobo..
No indication for acute dialysis at this time but with his nephrotic range proteinuria and hypo albumin decreased effective arterial blood volume will be difficult to diuresis him without worsening renal function.
Discuss this with the patient will see his response to a diuretics but certainly may require hemodialysis.
-
-
Date of Service: October 01, 2024
CC / HPI / ROS
-
Chief Complaint:
History of Present Illness:
Creatinine down to 3.3
Remains hypertensive
Review of Systems:
Nonoliguric around 1500 cc
No chest pain or shortness of breath
Labs
-
Labs:
WBC 4.6 10^3/uL (4.8-10.8) L 10/01/24 05:35
RBC 3.12 10^6/uL (4.70-6.10) L 10/01/24 05:35
Hgb 8.9 g/dL (13.0-18.0) L 10/01/24 05:35
Hct 27.0 % (39.0-52.0) L 10/01/24 05:35
Plt Count 157 10^3/uL (130-400) 10/01/24 05:35
Sodium 134 mmol/L (135-145) L 10/01/24 05:35
Potassium 4.5 mmol/L (3.5-5.1) 10/01/24 05:35
Chloride 109 mmol/L (98-107) H 10/01/24 05:35
Carbon Dioxide 19 mmol/L (22-30) L 10/01/24 05:35
BUN 75 mg/dl (9-20) H 10/01/24 05:35
Creatinine 3.3 mg/dL (0.7-1.3) H 10/01/24 05:35
eGFR 20.18 10/01/24 05:35
Glucose 224 mg/dl (70-99) H 10/01/24 05:35
Calcium 7.7 mg/dl (8.4-10.2) L 10/01/24 05:35
Ydd-M-Iygzosmxrrw Pept > 57299 pg/ml 09/30/24 11:28
Albumin 2.6 g/dl (3.5-5.0) L 09/30/24 11:28
Physical Exam
-
Vital Signs:
Vital Signs
Temp Pulse Resp BP Pulse Ox
98.8 F 74 18 181/96 96
10/01/24 10:21 10/01/24 12:13 10/01/24 12:13 10/01/24 11:30 10/01/24 11:00
Cardiovascular:: Regular rate and rhythm
Respiratory:: Bilateral: CTA
Lung Excursion:: Normal
Abdomen:: Nontender and Soft
Bowel Sounds:: Normal
Extremity Edema:: +2: Bilateral: (To thighs)
[place] Catheter: No
[2024-10-01 17:12] LABS: Glucose - Point of Care 297 mg/dl (70-99)
--- NOTE | 2024-10-01 19:05 | PTCARENOTE ---
received pt from ED to room 327. Assessment completed, VSS obtained, oriented to room. Pt on tele #[phone], NSR. Bed in lowest position, call peters within reach, continue plan of care
[2024-10-01 21:38] LABS: Glucose - Point of Care 211 mg/dl (70-99)
[2024-10-01] MEDS: APRESOLINE 5 MG IV (23:45)
[2024-10-02] VITALS (7 sets, daily range): BP systolic 165–195; BP diastolic 80–99; BMI 25.3
--- NOTE | 2024-10-02 03:45 | PTCARENOTE ---
pt remains hypertensive- reported to brick siding applicator- brick siding applicator ordered hydralazine see mar
[2024-10-02 07:02] LABS: Blood Urea Nitrogen 73 mg/dl (9-20); Calcium 7.7 mg/dl (8.4-10.2); Carbon Dioxide 19 mmol/L (22-30); Chloride 106 mmol/L (98-107); Estimated Creatinine Clearance 27 ml/min; Glucose 195 mg/dl (70-99); Magnesium 2.1 mg/dl (1.6-2.3); Potassium 4.1 mmol/L (3.5-5.1); Sodium 134 mmol/L (135-145); eGFR 20.18
[2024-10-02 07:28] LABS: Glucose - Point of Care 188 mg/dl (70-99)
[2024-10-02] MEDS: LASIX 80 MG IV ×2 (07:30→15:27)
[2024-10-02] MEDS: DELTASONE 10 MG PO (07:31)
[2024-10-02] MEDS: COREG 12.5 MG PO ×2 (07:31→08:28)
[2024-10-02] MEDS: APRESOLINE 25 MG PO ×3 (07:31→17:48)
[2024-10-02] MEDS: FLOMAX 0.4 MG PO (07:31)
[2024-10-02] MEDS: HEPARIN 5000 UNITS SC ×3 (07:31→21:08)
[2024-10-02] MEDS: NEURONTIN 300 MG PO ×2 (07:31→21:07)
[2024-10-02] MEDS: ATIVAN 1 MG PO ×3 (07:31→21:09)
[2024-10-02] MEDS: NOVOLOG FLEXPEN-LOW RESISTANCE 1 UNITS SC ×2 (07:32→12:04)
[2024-10-02] MEDS: WELLBUTRIN SR (12 hour sustained release) 150 MG PO ×2 (07:35→21:07)
[2024-10-02] MEDS: NOVOLOG MIX 70/30 FLEXPEN 10 UNITS SC (07:36)
--- NOTE | 2024-10-02 08:09 | W.PN.CD ---
Today's Communication / Plan
-
ongoing diuresis
tubigrips
increase coreg for htn
Impression / Plan
-
IMPRESSION/PLAN: 64M with hypertension, hyperlipidemia, type 2 diabetes mellitus, CKD4 (known diabetic nephropathy), with diabetic neuropathy, MRSA bacteremia with left foot osteomyelitis (on daptomycin), chronic HFpEF recent discharge after
hospitalization for lower extremity cellulitis, COVID-19 pneumonia and HFpEF who presented to the emergency department with increasing weakness and shortness of breath after discharged just a couple days ago.
Power Switchboard Operator: Dr. Nuñez
HFpEF, acute on chronic
-d/c wt on 09/02/2024 77.7 kg readmit at 100.5 kg,
-high risk situation with cardiorenal syndrome, IVY
-continue IV diuresis
-close monitoring of labs, tele, weight
-echo 06/2024: EF 60-65%, no sig valve disease
-GDMT is limited with his underlying renal disease (no MRA or SGLT2i)
-continue lasix 80mg IV bid
IVY on CKD Stage IV
-Nephrology consulted
HTN: uncontrolled and severely elevated
-continue coreg--Will increase to 25mg po BID
-10/01/23 hydralazine 25mg tid
-avoid nephrotoxic agents
NSVT, continue beta-lobo
Hyperkalemia, on [facility] Mondays and Fridays
History of MRSA osteomyelitis
Type 2 diabetes mellitus, per primary
Anemia, of chronic disease, per primary, no acute bleeding
Subjective;
breathing improving, urinating a lot
Physical Exam
Vital Signs/Labs
Vital Signs
Temp Pulse Resp BP Pulse Ox
97.5 F 70 16 195/97 97
10/02/24 08:01 10/02/24 08:01 10/02/24 08:01 10/02/24 08:01 10/02/24 08:01
10/01/24 10/02/24 10/03/24
06:59 06:59 06:59
Actual Weight 99.7 kg 91.824 kg
10/01/24 05:35
10/02/24 05:43
Magnesium 2.1 mg/dl (1.6-2.3) 10/02/24 05:43
09/30/24
11:28
Uqm-G-Icgbwhbbdbx Pept > 68619
LAB Results
09/30/24
11:28
Troponin I 0.020
Physical Exam
Constitutional: No acute distress
Cardiovascular: Rhythm & rate is regular, Pedal edema present (3+ up throught the thigh with sacral pitting edema) and JVD present (at the earlobe sitting straight up )
Respiratory: Respiratory effort normal, Lungs clear to auscul., Wheeze Absent, Crackles Absent and Rhonchi Absent
Neuro/Psych: AO x 3
Data Reviewed
-
Date of Service: October 02, 2024
Medical Decision Making: Review of Case with other Provider (Dr Barry and Krystle (nurse) add compression continue diuresis increase bb)
EKG: Other (tele sinus)
--- NOTE | 2024-10-02 09:06 | PN.DE.MGMTRT ---
Insulin Management
- -
09/02/2024 Diabetes Management Follow up:
Patient admitted with increasing lower extremity edema and pb gain. Pt was recently d/c'd after hospitalization for LE Cellulitis, COVID-19 pneumonia and HFpEF 08/14 to 09/02/24, admitted 08/04 to 08/08/24 with CHF, and 07/31 to 08/02 acute on
chronic heart failure . PMH: HTN, HLD, Severe Peripheral Neuropathy, CKD III, Lumbar DDD, Anxiety /Depression, MRSA bacteremia with left foot Osteomyelitis (on daptomycin), HFpEF and T2DM.
Recent A1C was 5.7% on 07/10/24, had been 14.1% in 10/2023. Prior to admission was taking 75/25 12 units BID. He has a monitor and states he checks his blood sugars 3x/day.
10/02 Patient is awake alert and oriented, able to discuss diabetes management.
Glucose 10/01 range 204 to 297, receiving 10 units 70/30 BID with corrective insulin. Will increase 70/30 dose to 12 units BID with corrective insulin.(prior admission required 12 units 70/30 with breakfast and 14 units with dinner).
Will follow for further needed adjustments if needed
Pt has a working glucose meter at home.
Discussed with nurse.
Diabetes History
- -
Type of Diabetes: 2 requiring insulin
Pre-Admission Diabetes Regimen
10/02/24
05:43
Creatinine 3.3 H
Insulin Pump Settings
IP Diabetes Regimen
10/01/24 10/01/24 10/01/24
12:56 17:11 21:37
Glucose
POC Glucose 289 H 297 H 211 H
10/02/24 10/02/24
05:43 07:27
Glucose 195 H
POC Glucose 188 H
Patient Education
--- NOTE | 2024-10-02 10:11 | W.PN.HOSP.TC ---
Today's Communication/Plan
-
continue IV Lasix
Coreg titrated by Cards
Assessment / Plan
Assessment / Plan
Assessment:
Acute on chronic heart failure exacerbation, proBNP greater than 27,000
- continue IV Lasix - requires intensive monitoring of I/Os, weights, lytes
- add Tubigrips
- Cardiology and Nephrology following
Acute kidney injury on CKD stage 4 (baseline Cr 1.7) - acute cardiorenal state in setting of CHF
Acute Metabolic acidosis
- Nephrology following; if no effective diuresis, may need dialysis
Recent hospitalization for post-COVID PNA
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
- completed Molnupiravir/steroids along with Meropenem course and remains on Prednisone 20mg
- will reduce to 10mg daily and continue until seen by Pulm in office
Steroid induced azotemia
History of MRSA cellulitis
IDDM
steroid induced hyperglycemia
- recent A1c 5.7%
- continue 70/30 10 units BID + SSI
- DRAWSTRING KNOTTER consulted for insulin management
Nephrotic range proteinuria
Positive proteinase 3 antibodies
essential Hypertension
- continue Coreg; titrated by Cardiology
Chronic anemia
Left foot osteomyelitis treated outpatient with daptomycin last Month
Anxiety
- continue Ativan/Gabapentin
DVT ppx: SC Heparin
Code: Full
Anticipated Discharge: > 48 hours
Subjective/Interval History
-
Date of Service: October 02, 2024
no new complaints at present
has decreased 2 kg overnight
no SOB or chest pain
Objective Data
-
Labs:
Laboratory Results
10/02/24
05:43
Sodium 134 L
Potassium 4.1
Chloride 106
Carbon Dioxide 19 L
BUN 73 H
Creatinine 3.3 H
Glucose 195 H
Calcium 7.7 L
Vital Signs:
Vital Signs
Temp Pulse Resp BP Pulse Ox
97.5 F 70 16 165/88 97
10/02/24 08:01 10/02/24 08:01 10/02/24 08:01 10/02/24 08:32 10/02/24 09:28
I&O
10/01/24 10/02/24 10/03/24
06:59 06:59 06:59
Intake Total 700 / 700
Output Total 1575 / 1575 2625 / 2625
Balance -1575 / -1575 -1925 / -1924
Physical Exam
-
General: No Apparent Distress
HEENT: Normocephalic and Atraumatic
Respiratory: Negative Wheezes
Cardiac: Regular Rhythm and S1/S2
Musculoskeletal: Edema, Right Lower Extrem and Edema, Left Lower Extrem
Neuro: AO x 3
Psych: Calm
Data Reviewed
-
Total Time Spent with Patient (in minutes): 51
Labs: Labs Reviewed by me
[2024-10-02 11:34] LABS: Glucose - Point of Care 192 mg/dl (70-99)
--- NOTE | 2024-10-02 11:57 | WOUNDNOTE ---
WOC RN NOTE: WOC RN consult received for stage 1 to sacrum. Spoke to KENDY Dalton and patient has no open wound and is self-care. Hospitalist made aware and consult cancelled.
--- NOTE | 2024-10-02 12:29 | W.PN.NEPH.PH ---
Today's Communication / Plan
-
maintain diuresis
escalated hydralazine
Assessment/Plan
-
63-year-old male with chronic kidney disease s/p biopsy confirmed Diabetic nephropathy. He has a history of hypertension which has been controlled on the combinations of his carvedilol and lisinopril. He has longstanding diabetes maintained
chronically on insulin and has microvascular complications including diabetic neuropathy, nephropathy. chr anemia with heme +ve stool, L foot osteomyelitis currently status post IV daptomycin through 08/25/2024 CHF and COPD. he said previous
admissions for a covariate in a CHF and AK I\\
Nephrology consulted for IVY and CHF. is gained 25+ pounds and since last admission he was discharged September 02 for the granting of 2.1 he presents today in a IVY and CHF significant volume overload with a creatinine of 3.6
impression:
acute or chronic kidney disease stage 3B/4.
Anasarca.
Diabetic nephropathy.
Hypertension.
Anemia of chronic disease.
Plan.
Aggressive IV diuretics. 80 mg IV twice daily for obvious volume overload
weights down 4kg
escalate hydralazine
Sodium restriction.
Hypertension persist, cardiology added hydralazine 25mg TID
Daily weights.
Avoid SGLT2 inhibitor's.
Holding JOSE inhibitor or angiotensin receptor lobo..
No indication for acute dialysis at this time but with his nephrotic range proteinuria and hypo albumin decreased effective arterial blood volume will be difficult to diuresis him without worsening renal function.
Discuss this with the patient will see his response to a diuretics but certainly may require hemodialysis.
-
-
Date of Service: October 02, 2024
CC / HPI / ROS
-
Chief Complaint:
CKD IV/edema
History of Present Illness:
Creatinine down to 3.3
Remains hypertensive
Review of Systems:
Nonoliguric around 1500 cc
No chest pain or shortness of breath
Labs
-
Labs:
WBC 4.6 10^3/uL (4.8-10.8) L 10/01/24 05:35
RBC 3.12 10^6/uL (4.70-6.10) L 10/01/24 05:35
Hgb 8.9 g/dL (13.0-18.0) L 10/01/24 05:35
Hct 27.0 % (39.0-52.0) L 10/01/24 05:35
Plt Count 157 10^3/uL (130-400) 10/01/24 05:35
Sodium 134 mmol/L (135-145) L 10/02/24 05:43
Potassium 4.1 mmol/L (3.5-5.1) 10/02/24 05:43
Chloride 106 mmol/L (98-107) 10/02/24 05:43
Carbon Dioxide 19 mmol/L (22-30) L 10/02/24 05:43
BUN 73 mg/dl (9-20) H 10/02/24 05:43
Creatinine 3.3 mg/dL (0.7-1.3) H 10/02/24 05:43
eGFR 20.18 10/02/24 05:43
Glucose 195 mg/dl (70-99) H 10/02/24 05:43
Calcium 7.7 mg/dl (8.4-10.2) L 10/02/24 05:43
Nha-E-Qmmefbfwtuo Pept > 14946 pg/ml 09/30/24 11:28
Albumin 2.6 g/dl (3.5-5.0) L 09/30/24 11:28
Physical Exam
-
Vital Signs:
Vital Signs
Temp Pulse Resp BP Pulse Ox
97.7 F 65 16 185/92 97
10/02/24 12:25 10/02/24 12:25 10/02/24 12:25 10/02/24 12:25 10/02/24 12:25
Cardiovascular:: Regular rate and rhythm
Respiratory:: Bilateral: Coarse
Lung Excursion:: Normal
Abdomen:: Nontender
Bowel Sounds:: Normal
Extremity Edema:: +2: Bilateral:
[place] Catheter: No
[2024-10-02 16:39] LABS: Glucose - Point of Care 291 mg/dl (70-99)
[2024-10-02] MEDS: NOVOLOG FLEXPEN-LOW RESISTANCE 3 UNITS SC (17:10)
[2024-10-02] MEDS: NOVOLOG MIX 70/30 FLEXPEN 12 UNITS SC (17:11)
[2024-10-02] MEDS: APRESOLINE 5 MG IV (17:49)
[2024-10-02] MEDS: COREG 25 MG PO (21:07)
[2024-10-02] MEDS: APRESOLINE 50 MG PO (21:08)
[2024-10-02 21:44] LABS: Glucose - Point of Care 146 mg/dl (70-99)
[2024-10-03] VITALS (8 sets, daily range): BP systolic 164–185; BP diastolic 78–93; PULSE 62–64; O2SAT 97–98; BMI 24.7
--- NOTE | 2024-10-03 07:02 | PN.DE.MGMTRT ---
Insulin Management
- -
10/03/2024 Diabetes Management Follow up:
Patient admitted with increasing lower extremity edema and pb gain. Pt was recently d/c'd after hospitalization for LE Cellulitis, COVID-19 pneumonia and HFpEF 08/14 to 09/02/24, admitted 08/04 to 08/08/24 with CHF, and 07/31 to 08/02 acute on
chronic heart failure . PMH: HTN, HLD, Severe Peripheral Neuropathy, CKD III, Lumbar DDD, Anxiety /Depression, MRSA bacteremia with left foot Osteomyelitis (on daptomycin), HFpEF and T2DM.
Recent A1C was 5.7% on 07/10/24, had been 14.1% in 10/2023. Prior to admission was taking 75/25 12 units BID. He has a monitor and states he checks his blood sugars 3x/day.
10/03 Patient is awake alert and oriented, able to discuss diabetes management. Patient follows with his primary doctor for diabetes care.
Glucose 10/02 range 188 to 291, received 10 units 70/30 with breakfast and 12 units 70/30 with dinner. HS glucose 146, fasting glucose this AM 127. Will continue 70/30 at 12 units BID with low corrective insulin. (prior admission required 12 units
70/30 with breakfast and 14 units with dinner).
Will follow for further needed adjustments.
Pt has a DexCom CGM and a working glucose meter at home.
Diabetes History
- -
Type of Diabetes: 2 requiring insulin
Pre-Admission Diabetes Regimen
10/02/24
05:43
Creatinine 3.3 H
Insulin Pump Settings
IP Diabetes Regimen
10/02/24 10/02/24 10/02/24
05:43 07:27 11:33
Glucose 195 H
POC Glucose 188 H 192 H
10/02/24 10/02/24
16:38 21:43
Glucose
POC Glucose 291 H 146 H
Meal type: Breakfast
Amount consumed: 100%
Patient Education
[2024-10-03 07:20] LABS: Blood Urea Nitrogen 75 mg/dl (9-20); Calcium 7.7 mg/dl (8.4-10.2); Carbon Dioxide 22 mmol/L (22-30); Chloride 104 mmol/L (98-107); Estimated Creatinine Clearance 27 ml/min; Glucose 128 mg/dl (70-99); Potassium 3.9 mmol/L (3.5-5.1); Sodium 133 mmol/L (135-145); eGFR 20.18
[2024-10-03 07:25] LABS: Glucose - Point of Care 127 mg/dl (70-99)
[2024-10-03] MEDS: NOVOLOG FLEXPEN-LOW RESISTANCE SC ×2 (07:26→11:14)
[2024-10-03] MEDS: APRESOLINE 50 MG PO ×3 (07:27→20:25)
[2024-10-03] MEDS: ATIVAN 1 MG PO ×3 (07:27→21:07)
[2024-10-03] MEDS: WELLBUTRIN SR (12 hour sustained release) 150 MG PO ×2 (07:28→20:28)
[2024-10-03] MEDS: NEURONTIN 300 MG PO ×2 (07:28→20:28)
[2024-10-03] MEDS: DELTASONE 10 MG PO (07:28)
[2024-10-03] MEDS: COREG 25 MG PO ×2 (07:28→20:27)
[2024-10-03] MEDS: FLOMAX 0.4 MG PO (07:28)
[2024-10-03] MEDS: LASIX 80 MG IV ×2 (07:28→15:25)
[2024-10-03] MEDS: HEPARIN 5000 UNITS SC ×2 (07:28→15:24)
[2024-10-03] MEDS: NOVOLOG MIX 70/30 FLEXPEN 12 UNITS SC ×2 (07:30→16:17)
--- NOTE | 2024-10-03 08:32 | W.PN.CD ---
Today's Communication / Plan
-
continue ongoing diuresis
bp titration tomorrow if needed
Impression / Plan
-
IMPRESSION/PLAN: 64M with hypertension, hyperlipidemia, type 2 diabetes mellitus, CKD4 (known diabetic nephropathy), with diabetic neuropathy, MRSA bacteremia with left foot osteomyelitis (on daptomycin), chronic HFpEF recent discharge after
hospitalization for lower extremity cellulitis, COVID-19 pneumonia and HFpEF who presented to the emergency department with increasing weakness and shortness of breath after discharged just a couple days ago.
Schedule Planning Manager: Dr. Nuñez
HFpEF, acute on chronic
-improving but still a long way off
-d/c wt on 09/02/2024 77.7 kg readmit at 100.5 kg,
-high risk situation with cardiorenal syndrome, IVY
-continue IV diuresis BID
-close monitoring of labs, tele, weight
-echo 06/2024: EF 60-65%, no sig valve disease
-GDMT is limited with his underlying renal disease (no MRA or SGLT2i)
-continue lasix 80mg IV bid
IVY on CKD Stage IV
-Nephrology consulted
HTN: uncontrolled and severely elevated
-improving but still high
-continue coreg--10/02/24 increase to 25mg po BID
-10/01/23 hydralazine 25mg tid-->10/02/24 increased to 50TID has yet to receive full dosing
-avoid nephrotoxic agents
NSVT, continue beta-lobo
Hyperkalemia, on [facility] Mondays and Fridays
History of MRSA osteomyelitis
Type 2 diabetes mellitus, per primary
Anemia, of chronic disease, per primary, no acute bleeding
Subjective;
breathing improving, urinating a lot, compression on
Physical Exam
Vital Signs/Labs
Vital Signs
Temp Pulse Resp BP Pulse Ox
97.6 F 72 18 185/89 96
10/03/24 07:59 10/03/24 07:59 10/03/24 07:59 10/03/24 07:59 10/03/24 07:59
10/02/24 10/03/24 10/04/24
06:59 06:59 06:59
Actual Weight 91.824 kg 89.63 kg
10/01/24 05:35
10/03/24 06:06
Magnesium 2.0 mg/dl (1.6-2.3) 10/03/24 06:06
09/30/24
11:28
Tbr-C-Ipowwhwrwjx Pept > 06735
LAB Results
09/30/24
11:28
Troponin I 0.020
Physical Exam
Constitutional: No acute distress
Cardiovascular: Rhythm & rate is regular, JVD pressure is normal, Systolic murmur absent, Diastolic murmur absent, Pedal edema present (2+ with compression all the way up to sacrum ) and JVD present (level of mandible at 90 degrees)
Respiratory: Respiratory effort normal, Lungs clear to auscul., Wheeze Absent, Crackles Absent and Rhonchi Absent
Neuro/Psych: AO x 3
Data Reviewed
-
Date of Service: October 03, 2024
Medical Decision Making: Review of Case with other Provider (Dr Barry, continue diuresis bp meds all adjusted yesterday give a day to see some effect)
--- NOTE | 2024-10-03 11:10 | CM ---
Addendum entered by Kathleen Enriquez 10/03/24 12:02:
Spoke w/ Justyna/[facility]. Per Justyna pt currently on hold w/ services, pt is at the end of service episode. Pt will start services upon d/c
Per Sowmya Jansen records indicate that phone call attempts have been made but pt has been unresponsive. CM placed [facility] referral in [facility] w/ additional contact for pt
Original Note:
Pt seen bedside. Initial assessment completed. Admitted for lower extremity edema and weight gain.
Pt reports that he lives w/ his brother in a 2ST[place]- 1 step to enter. Pt uses a cane and walker to ambulate. Denies any other DME
Pt denies SNF for rehab but [facility] Prev hospital admission in July, pt d/c w/ [facility] (09/02), however, pt states no one came to his home for services even when he made attempted phone calls.
CM left message w/ Juan to confirm if pt is current w/ services or not.
Address, points of contact and insurance verified
PCP: Dr. Dumont
Pharmacy: [facility]
Poss HH needs at d/c.
Plan: Home, poss w/ HH
--- NOTE | 2024-10-03 11:13 | W.PN.HOSP.TC ---
Today's Communication/Plan
-
continue IV diuretics
keep current doses of BP meds for today and observe response
Assessment / Plan
Assessment / Plan
Assessment:
Acute on chronic heart failure exacerbation, proBNP greater than 27,000
- continue IV Lasix - requires intensive monitoring of I/Os, weights, lytes
- continue Tubigrips
- Cardiology and Nephrology following
Acute kidney injury on CKD stage 4 (baseline Cr 1.7) - acute cardiorenal state in setting of CHF
Acute Metabolic acidosis
- Nephrology following; if no effective diuresis, may need dialysis
Recent hospitalization for post-COVID PNA
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
- completed Molnupiravir/steroids along with Meropenem course and remains on Prednisone 20mg
- will reduce to 10mg daily and continue until seen by Pulm in office
Steroid induced azotemia
History of MRSA cellulitis
IDDM
steroid induced hyperglycemia
- recent A1c 5.7%
- continue 70/30 10 units BID + SSI
- ADVANCE AGENT consulted for insulin management
Nephrotic range proteinuria
Positive proteinase 3 antibodies
essential Hypertension
- continue Coreg; titrated by Cardiology
- continue Hydralazine
- monitor BPs
Chronic anemia
Left foot osteomyelitis treated outpatient with daptomycin last Month
Anxiety
- continue Ativan/Gabapentin
DVT ppx: SC Heparin
Code: Full
Anticipated Discharge: > 48 hours
Subjective/Interval History
-
Date of Service: October 03, 2024
weight down to 89kg
Objective Data
-
Labs:
Laboratory Results
10/03/24
06:06
Sodium 133 L
Potassium 3.9
Chloride 104
Carbon Dioxide 22
BUN 75 H
Creatinine 3.3 H
Glucose 128 H
Calcium 7.7 L
Vital Signs:
Vital Signs
Temp Pulse Resp BP Pulse Ox
97.6 F 72 18 185/89 97
10/03/24 07:59 10/03/24 07:59 10/03/24 07:59 10/03/24 07:59 10/03/24 09:12
I&O
10/02/24 10/03/24 10/04/24
06:59 06:59 06:59
Intake Total 700 / 700 1500 / 1500
Output Total 2625 / 2625 600 / 600
Balance -1925 / -1925 900 / 900
Physical Exam
-
General: No Apparent Distress
HEENT: Normocephalic and Atraumatic
Respiratory: Negative Wheezes
Cardiac: Regular Rhythm and S1/S2
GI: Soft and Nontender
Musculoskeletal: Edema, Right Lower Extrem and Edema, Left Lower Extrem
Neuro: AO x 3
Psych: Calm
Data Reviewed
-
Total Time Spent with Patient (in minutes): 50
Labs: Labs Reviewed by me
[2024-10-03 11:14] LABS: Glucose - Point of Care 128 mg/dl (70-99)
--- NOTE | 2024-10-03 13:18 | W.PN.NEPH.PH ---
Today's Communication / Plan
-
continue current diuretics
Assessment/Plan
-
63-year-old male with chronic kidney disease s/p biopsy confirmed Diabetic nephropathy. He has a history of hypertension which has been controlled on the combinations of his carvedilol and lisinopril. He has longstanding diabetes maintained
chronically on insulin and has microvascular complications including diabetic neuropathy, nephropathy. chr anemia with heme +ve stool, L foot osteomyelitis currently status post IV daptomycin through 08/25/2024 CHF and COPD. he said previous
admissions for a covariate in a CHF and [place] I\\
Nephrology consulted for IVY and CHF. is gained 25+ pounds and since last admission he was discharged September 02 for the granting of 2.1 he presents today in a IVY and CHF significant volume overload with a creatinine of 3.6
impression:
acute or chronic kidney disease stage 3B/4.
Anasarca.
Diabetic nephropathy.
Hypertension.
Anemia of chronic disease.
Plan.
Aggressive IV diuretics. 80 mg IV twice daily for obvious volume overload
weights down
escalate hydralazine
Sodium restriction.
Hypertension persist= volume sensitive hypertension=Tetra medications if
volume reduction does not improve it
Holding JOSE inhibitor or angiotensin receptor lobo..
No indication for acute dialysis at this time but with his nephrotic range proteinuria and hypo albumin decreased effective arterial blood volume will be difficult to diuresis him without worsening renal function.
creatinine stable at 3.3.
-
-
Date of Service: October 03, 2024
CC / HPI / ROS
-
Chief Complaint:
CKD IV/edema
History of Present Illness:
Creatinine down to 3.3
Remains hypertensive
Review of Systems:
Nonoliguric -1899
No chest pain or shortness of breath
Labs
-
Labs:
WBC 4.6 10^3/uL (4.8-10.8) L 10/01/24 05:35
RBC 3.12 10^6/uL (4.70-6.10) L 10/01/24 05:35
Hgb 8.9 g/dL (13.0-18.0) L 10/01/24 05:35
Hct 27.0 % (39.0-52.0) L 10/01/24 05:35
Plt Count 157 10^3/uL (130-400) 10/01/24 05:35
Sodium 133 mmol/L (135-145) L 10/03/24 06:06
Potassium 3.9 mmol/L (3.5-5.1) 10/03/24 06:06
Chloride 104 mmol/L (98-107) 10/03/24 06:06
Carbon Dioxide 22 mmol/L (22-30) 10/03/24 06:06
BUN 75 mg/dl (9-20) H 10/03/24 06:06
Creatinine 3.3 mg/dL (0.7-1.3) H 10/03/24 06:06
eGFR 20.18 10/03/24 06:06
Glucose 128 mg/dl (70-99) H 10/03/24 06:06
Calcium 7.7 mg/dl (8.4-10.2) L 10/03/24 06:06
Arz-G-Vkggbhnxeir Pept > 32279 pg/ml 09/30/24 11:28
Albumin 2.6 g/dl (3.5-5.0) L 09/30/24 11:28
Physical Exam
-
Vital Signs:
Vital Signs
Temp Pulse Resp BP Pulse Ox
97.3 F 63 16 171/87 96
10/03/24 11:29 10/03/24 11:29 10/03/24 11:29 10/03/24 11:29 10/03/24 11:29
Cardiovascular:: Regular rate and rhythm
Respiratory:: Bilateral: Coarse
Lung Excursion:: Normal
Abdomen:: Nontender
Bowel Sounds:: Normal
Extremity Edema:: +2: Bilateral:
[place] Catheter: No
--- NOTE | 2024-10-03 14:20 | PN.CDI ---
CDI
- -
CDI:
Physician Documentation Request
Admit Date: 09/30/24 16:32
Dear Doctor Jhonny,
Please review the following and provide your response in the progress notes.
Clinical Indicators:
Pt admitted with Acute on Chronic diastolic CHF exacerbation/ IVY on CKD 4
Sodium levels are as below/Pt on Sodium restriction/IV diuresis
10/01/24 10/02/24 10/03/24
05:35 05:43 06:06
Sodium 134 L 134 L 133 L
Based on the above, could you clarify in the progress notes, the appropriate diagnosis, if significant, that supports the above abnormalities and additional evaluation, monitoring and/or treatment rendered:
Hyponatremia
Abnormal lab value
Other ( please specify)
Use of terms such as suspected, likely, concern for, or probable (associated with a specific diagnosis that is being evaluated, monitored, or treated as if it exists) are acceptable and can be coded in the inpatient setting, when documented at the
time of discharge.
Thank you,
Mare Barajas RN
CDI Specialist
[facility] [facility]
Please use your independent medical judgment in providing your response.
[2024-10-03 16:16] LABS: Glucose - Point of Care 200 mg/dl (70-99)
[2024-10-03] MEDS: NOVOLOG FLEXPEN-LOW RESISTANCE 2 UNITS SC (16:16)
[2024-10-03 21:35] LABS: Glucose - Point of Care 138 mg/dl (70-99)
[2024-10-03] MEDS: HEPARIN SC (23:55)
[2024-10-04 03:44] VITALS: BP 179/88
[2024-10-04 05:42] VITALS: BMI 24.3
[2024-10-04 07:24] LABS: Glucose - Point of Care 122 mg/dl (70-99)
[2024-10-04 07:49] LABS: Hematocrit 28.1 % (39.0-52.0); Hemoglobin 9.3 g/dL (13.0-18.0); Mean Corp Hgb Conc. 33.1 g/dL (33.0-37.0); Mean Corpuscular Hgb 28.4 pg (27.0-31.0); Mean Corpuscular Volume 85.9 fL (80.0-94.0); Mean Platelet Volume 9.4 fL (7.4-10.4); Platelet Count 154 10^3/uL (130-400); Red Blood Cell Count 3.27 10^6/uL (4.70-6.10); Red Cell Dist. Width 19.9 % (11.5-14.5); White Blood Cell Count 7.6 10^3/uL (4.8-10.8)
[2024-10-04 08:18] LABS: Blood Urea Nitrogen 77 mg/dl (9-20); Calcium 7.8 mg/dl (8.4-10.2); Carbon Dioxide 22 mmol/L (22-30); Chloride 104 mmol/L (98-107); Estimated Creatinine Clearance 28 ml/min; Glucose 113 mg/dl (70-99); Potassium 3.7 mmol/L (3.5-5.1); Sodium 134 mmol/L (135-145); eGFR 20.94
[2024-10-04 08:23] VITALS: BP 179/83
[2024-10-04] MEDS: NOVOLOG FLEXPEN-LOW RESISTANCE SC ×2 (08:35→12:20)
[2024-10-04] MEDS: HEPARIN 5000 UNITS SC ×3 (08:38→21:05)
[2024-10-04] MEDS: TYLENOL 650 MG PO ×2 (08:40→15:08)
[2024-10-04] MEDS: DELTASONE 10 MG PO (08:40)
[2024-10-04] MEDS: ATIVAN 1 MG PO ×3 (08:40→21:04)
[2024-10-04] MEDS: NEURONTIN 300 MG PO ×2 (08:44→21:02)
[2024-10-04] MEDS: WELLBUTRIN SR (12 hour sustained release) 150 MG PO ×2 (08:44→21:04)
[2024-10-04] MEDS: APRESOLINE 50 MG PO ×3 (08:44→21:04)
[2024-10-04] MEDS: LASIX 80 MG IV ×2 (08:45→15:09)
[2024-10-04] MEDS: COREG 25 MG PO ×2 (08:45→21:02)
[2024-10-04] MEDS: FLOMAX 0.4 MG PO (08:45)
--- NOTE | 2024-10-04 08:49 | W.PN.HOSP.TC ---
Today's Communication/Plan
-
CT abd/pelvis for L flank pain
CXR, COVID, Flu for febrile illness, body aches
continue IV diuresis
monitor BP, consider further titration of Hydralazine if suboptimal control
Assessment / Plan
Assessment / Plan
Assessment:
Acute on chronic heart failure exacerbation, proBNP greater than 27,000
- continue IV Lasix - requires intensive monitoring of I/Os, weights, lytes
- continue Tubigrips
- Cardiology and Nephrology following
Acute kidney injury on CKD stage 4 (baseline Cr 1.7) - acute cardiorenal state in setting of CHF
Acute Metabolic acidosis
- Nephrology following; if no effective diuresis, may need dialysis
Febrile illness, body aches, L Flank pain 10/04/24
- UA clear; will add on culture
- check blood cultures
- COVID/Flu
- CXR 2 V
- CT abdomen/pelvic no contrast due to Flank pain, hx of stones
Recent hospitalization for post-COVID PNA
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
- completed Molnupiravir/steroids along with Meropenem course and remains on Prednisone 20mg
- will reduce to 10mg daily and continue until seen by Pulm in office
Steroid induced azotemia
History of MRSA cellulitis
IDDM
steroid induced hyperglycemia
- recent A1c 5.7%
- continue 70/30 10 units BID + SSI
- ACTIVITIES COORDINATOR consulted for insulin management
Nephrotic range proteinuria
Positive proteinase 3 antibodies
essential Hypertension
- continue Coreg
- continue Hydralazine
- monitor BPs and titrate meds as able
Chronic anemia
Left foot osteomyelitis treated outpatient with daptomycin last Month
Anxiety
- continue Ativan/Gabapentin
Hyponatremia
DVT ppx: SC Heparin
Code: Full
Anticipated Discharge: > 48 hours
Subjective/Interval History
-
Date of Service: October 04, 2024
reports generalized body aches, low grade temp, congestion, but also L flank pain - all started this morning
denies chest pain or sob
no GI complaints
Objective Data
-
Labs:
Laboratory Results
10/04/24
07:14
WBC 7.6
Hgb 9.3 L
Hct 28.1 L
Plt Count 154
Sodium 134 L
Potassium 3.7
Chloride 104
Carbon Dioxide 22
BUN 77 H
Creatinine 3.2 H
Glucose 113 H
Calcium 7.8 L
Vital Signs:
Vital Signs
Temp Pulse Resp BP Pulse Ox
100.2 F 87 20 179/83 94
10/04/24 08:23 10/04/24 08:23 10/04/24 08:23 10/04/24 08:23 10/04/24 08:23
I&O
10/03/24 10/04/24 10/05/24
06:59 06:59 06:59
Intake Total 1500 / 1500 1300 / 1300
Output Total 600 / 600
Balance 900 / 900 1300 / 1300
Physical Exam
-
General: Fever
HEENT: Normocephalic, Atraumatic and Other (+ nasal congestion)
Respiratory: Clear to Auscultation; Negative Wheezes
Cardiac: Regular Rhythm and S1/S2
GI: Soft and Nontender
Genito-urinary: No Costovertebral Tender
Neuro: AO x 3
Psych: Calm
Data Reviewed
-
Total Time Spent with Patient (in minutes): 51
Labs: Labs Reviewed by me
[2024-10-04] MEDS: NOVOLOG MIX 70/30 FLEXPEN 12 UNITS SC ×2 (09:04→18:34)
[2024-10-04 09:49] LABS: Urine Albumin 3+ (Neg - Trace); Urine Bilirubin Negative (Negative); Urine Character Clear (Clear); Urine Color Yellow; Urine Glucose Trace (Negative); Urine Ketone Negative (Negative); Urine Leukocyte Negative (Negative); Urine Nitrite Negative (Negative); Urine Occult Blood Negative (Negative); Urine Urobilinogen Negative (Neg - 1+)
[2024-10-04 10:24] LABS: Urine Mucus Few
[2024-10-04 10:26] LABS: Urine Bacteria Few (Negative); Urine Red Blood Cell 16-20 /HPF (0-2)
[2024-10-04 10:27] LABS: Urine Amorphous Seen
[2024-10-04 11:55] LABS: Glucose - Point of Care 143 mg/dl (70-99)
[2024-10-04 12:34] VITALS: BP 146/75
--- NOTE | 2024-10-04 13:48 | W.PN.NEPH.PH ---
Today's Communication / Plan
-
continued Lasix
Assessment/Plan
-
63-year-old male with chronic kidney disease s/p biopsy confirmed Diabetic nephropathy. He has a history of hypertension which has been controlled on the combinations of his carvedilol and lisinopril. He has longstanding diabetes maintained
chronically on insulin and has microvascular complications including diabetic neuropathy, nephropathy. chr anemia with heme +ve stool, L foot osteomyelitis currently status post IV daptomycin through 08/25/2024 CHF and COPD. he said previous
admissions for a covariate in a CHF and [place] I\\
Nephrology consulted for IVY and CHF. is gained 25+ pounds and since last admission he was discharged September 02 for the granting of 2.1 he presents today in a IVY and CHF significant volume overload with a creatinine of 3.6
impression:
acute or chronic kidney disease stage 3B/4.
Anasarca.
Diabetic nephropathy.
Hypertension.
Anemia of chronic disease.
Plan.
80 mg IV twice daily for obvious volume overload= improving
weights down
escalate hydralazine
Sodium restriction.
Hypertension persist= volume sensitive hypertension=Titrate medications if
volume reduction does not improve it
Holding JOSE inhibitor or angiotensin receptor lobo..
No indication for acute dialysis at this time but with his nephrotic range proteinuria and hypo albumin decreased effective arterial blood volume will be difficult to diuresis him without worsening renal function.
creatinine stable at 3.3.
Continues to lose weight.
He did have a low-grade temp with chills checking for viral= defer to primary
-
-
Date of Service: October 04, 2024
CC / HPI / ROS
-
Chief Complaint:
CKD IV/edema
History of Present Illness:
Creatinine down to 3.3
Remains hypertensive with most recent one improved
Review of Systems:
Nonoliguric with weights coming down nicely
No chest pain or shortness of breath
did have a low-grade temp with chills
Labs
-
Labs:
WBC 7.6 10^3/uL (4.8-10.8) 10/04/24 07:14
RBC 3.27 10^6/uL (4.70-6.10) L 10/04/24 07:14
Hgb 9.3 g/dL (13.0-18.0) L 10/04/24 07:14
Hct 28.1 % (39.0-52.0) L 10/04/24 07:14
Plt Count 154 10^3/uL (130-400) 10/04/24 07:14
Sodium 134 mmol/L (135-145) L 10/04/24 07:14
Potassium 3.7 mmol/L (3.5-5.1) 10/04/24 07:14
Chloride 104 mmol/L (98-107) 10/04/24 07:14
Carbon Dioxide 22 mmol/L (22-30) 10/04/24 07:14
BUN 77 mg/dl (9-20) H 10/04/24 07:14
Creatinine 3.2 mg/dL (0.7-1.3) H 10/04/24 07:14
eGFR 20.94 10/04/24 07:14
Glucose 113 mg/dl (70-99) H 10/04/24 07:14
Calcium 7.8 mg/dl (8.4-10.2) L 10/04/24 07:14
Dwb-A-Knjhygvzlri Pept > 21322 pg/ml 09/30/24 11:28
Albumin 2.6 g/dl (3.5-5.0) L 09/30/24 11:28
Physical Exam
-
Vital Signs:
Vital Signs
Temp Pulse Resp BP Pulse Ox
99.6 F 81 19 146/75 93
10/04/24 12:34 10/04/24 12:34 10/04/24 12:34 10/04/24 12:34 10/04/24 12:34
Cardiovascular:: Regular rate and rhythm
Respiratory:: Bilateral: Coarse
Lung Excursion:: Normal
Abdomen:: Nontender
Bowel Sounds:: Normal
Extremity Edema:: +2: Bilateral:
[place] Catheter: No
[2024-10-04 13:54] LABS: COVID-19 Antigen Negative (Negative)
[2024-10-04] MEDS: TAMIFLU 30 MG PO (15:08)
[2024-10-04 17:34] LABS: Glucose - Point of Care 256 mg/dl (70-99)
[2024-10-04] MEDS: NOVOLOG FLEXPEN-LOW RESISTANCE 3 UNITS SC (18:34)
[2024-10-04 19:35] VITALS: BP 169/77
[2024-10-04 21:11] LABS: Glucose - Point of Care 169 mg/dl (70-99)
[2024-10-04 23:51] VITALS: BP 175/85
[2024-10-05 03:52] VITALS: BP 160/81; BMI 24.1
[2024-10-05 06:51] LABS: Hematocrit 27.3 % (39.0-52.0); Mean Corpuscular Hgb 28.8 pg (27.0-31.0); Mean Corpuscular Volume 87.2 fL (80.0-94.0); Mean Platelet Volume 9.5 fL (7.4-10.4); Platelet Count 155 10^3/uL (130-400); Red Blood Cell Count 3.13 10^6/uL (4.70-6.10); Red Cell Dist. Width 19.9 % (11.5-14.5); White Blood Cell Count 6.9 10^3/uL (4.8-10.8)
[2024-10-05 07:21] LABS: Blood Urea Nitrogen 80 mg/dl (9-20); Calcium 7.4 mg/dl (8.4-10.2); Carbon Dioxide 22 mmol/L (22-30); Chloride 104 mmol/L (98-107); Estimated Creatinine Clearance 27 ml/min; Glucose 115 mg/dl (70-99); Potassium 3.5 mmol/L (3.5-5.1); Sodium 135 mmol/L (135-145); eGFR 19.47
[2024-10-05 07:31] LABS: Glucose - Point of Care 114 mg/dl (70-99)
[2024-10-05] MEDS: LASIX 80 MG IV ×2 (07:51→16:51)
[2024-10-05] MEDS: HEPARIN 5000 UNITS SC ×3 (07:52→23:01)
[2024-10-05] MEDS: NOVOLOG MIX 70/30 FLEXPEN 12 UNITS SC ×2 (07:54→16:54)
[2024-10-05] MEDS: TAMIFLU 30 MG PO (07:55)
[2024-10-05] MEDS: FLOMAX 0.4 MG PO (07:55)
[2024-10-05] MEDS: NEURONTIN 300 MG PO ×2 (07:55→20:09)
[2024-10-05] MEDS: APRESOLINE 50 MG PO (07:55)
[2024-10-05] MEDS: COREG 25 MG PO ×2 (07:56→20:09)
[2024-10-05] MEDS: DELTASONE 10 MG PO (07:56)
[2024-10-05] MEDS: WELLBUTRIN SR (12 hour sustained release) 150 MG PO ×2 (07:56→20:09)
[2024-10-05] MEDS: ATIVAN 1 MG PO ×3 (07:56→22:27)
[2024-10-05] MEDS: NOVOLOG FLEXPEN-LOW RESISTANCE SC ×2 (07:56→12:37)
[2024-10-05 08:03] VITALS: BP 184/89
--- NOTE | 2024-10-05 08:25 | PHA.VAN.IN ---
Assessment
- Assessment
Renal Function: Appears elevated from baseline (BASELINE SCR ~2.1 MG/DL)
Concomitant Antimicrobials: CEFEPIME
Historical Micro: History of MRSA infection (WOUND CULTURES 07/14/2024)
Plan
- Plan
Initial / Loading Dose: VANCO 1750MG X1
Monitoring: RANDOM 10/06 @0600
MRSA Screen: Ordered per protocol
Pharmacokinetics Vancomycin I
- -
Patient Age: 64
Patient Sex: Male
Vancomycin Day #: 1
Indication: PULM
Requesting Provider: DR. CRUZ
Height / Weight:
Height 6 ft 3 in
Actual Weight 87.317 kg
Pertinent Past Medical History: DM, RECENT COVID PNA, CKD
- Vital Signs / Lab Results
Temp Pulse Resp BP Pulse Ox
97.8 F 77 19 184/89 95
10/05/24 08:03 10/05/24 08:03 10/05/24 08:03 10/05/24 08:03 10/05/24 08:03
Lab Results - Hematology
10/04/24 10/05/24
07:14 05:52
WBC 7.6 6.9
Lab Results - Chemistry
10/03/24 10/04/24 10/05/24
06:06 07:14 05:52
BUN 75 H 77 H 80 H
Creatinine 3.3 H 3.2 H 3.4 H
Estimated Creat Clear 27 28 27
Lab Results - Urine
10/04/24
09:26
Urine Nitrite (Reflex) Negative
Leukocyte Esterase Rfl Negative
Urine WBC (Reflex) 3-5
Ur Squamous Epith Cells 6-10
Urine Bacteria (Reflex) Few A
Microbiology Results
10/04/24 13:12 Influenza Types A & B (LAURA) - Final
Nasal Swab Influenza A Positive, NAAT
--- NOTE | 2024-10-05 09:52 | W.PN.HOSP.TC ---
Today's Communication/Plan
-
continue IV abx and Tamiflu for PNA/Flu
increase Hydralazine
continue IV Lasix
Assessment / Plan
Assessment / Plan
Assessment:
Acute on chronic heart failure exacerbation, proBNP greater than 27,000
- continue IV Lasix - requires intensive monitoring of I/Os, weights, lytes
- continue Tubigrips
- Cardiology and Nephrology following
Acute kidney injury on CKD stage 4 (baseline Cr 1.7) - acute cardiorenal state in setting of CHF
Acute Metabolic acidosis
- Nephrology following; if no effective diuresis, may need dialysis
Febrile illness, body aches, L Flank pain 10/04/24
- CT: bilateral nonobstructing renal calculi. there are no obstructing renal or ureteral calculi. there is no hydronephrosis or hydroureter.
- CXR: moderate diffuse coarsening of the interstitial markings in the right perihilar region extending into the upper and lower portions of the right lung consistent with pneumonia and associated with small right pleural effusion
- Influenza A positive: continue renally-dose Tamiflu, day 2
- start Vancomycin, day 1; requires intensive monitoring of levels. check MRSA swab
- start cefepime, day
- follow cultures
Recent hospitalization for post-COVID PNA
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
- completed Molnupiravir/steroids along with Meropenem course and remains on Prednisone 20mg
- will reduce to 10mg daily and continue until seen by Pulm in office
Steroid induced azotemia
History of MRSA cellulitis
IDDM
steroid induced hyperglycemia
- recent A1c 5.7%
- continue 70/30 10 units BID + SSI
- SUBCONTRACT MANAGER consulted for insulin management
Nephrotic range proteinuria
Positive proteinase 3 antibodies
essential Hypertension
- continue Coreg
- continue Hydralazine; increase to 75mg TID
- monitor BPs and titrate meds as able
Chronic anemia
Left foot osteomyelitis treated outpatient with daptomycin last Month
Anxiety
- continue Ativan/Gabapentin
Hyponatremia
DVT ppx: SC Heparin
Code: Full
Anticipated Discharge: > 48 hours
Subjective/Interval History
-
Date of Service: October 05, 2024
+Flu A and pneumonia on workup yesterday
reports less congestion and no body aches
no fevers
Objective Data
-
Labs:
Laboratory Results
10/05/24
05:52
WBC 6.9
Hgb 9.0 L
Hct 27.3 L
Plt Count 155
Sodium 135
Potassium 3.5
Chloride 104
Carbon Dioxide 22
BUN 80 H
Creatinine 3.4 H
Glucose 115 H
Calcium 7.4 L
Vital Signs:
Vital Signs
Temp Pulse Resp BP Pulse Ox
97.8 F 77 19 184/89 95
10/05/24 08:03 10/05/24 08:03 10/05/24 08:03 10/05/24 08:03 10/05/24 08:03
I&O
10/04/24 10/05/24 10/06/24
06:59 06:59 06:59
Intake Total 1300 / 1300 1140 / 1140
Balance 1300 / 1300 1140 / 1140
Physical Exam
-
General: No Apparent Distress
HEENT: Normocephalic and Atraumatic
Respiratory: Negative Wheezes
Cardiac: Regular Rhythm and S1/S2
GI: Soft and Nontender
Neuro: AO x 3
Psych: Calm
Data Reviewed
-
Total Time Spent with Patient (in minutes): 51
Labs: Labs Reviewed by me
[2024-10-05 09:58] VITALS: BMI 23.3
[2024-10-05] MEDS: VANCOCIN 535 MG IV (09:59)
[2024-10-05] MEDS: STERILE WATER FOR INJECTION 10 ML IV ×2 (10:00→22:28)
[2024-10-05] MEDS: MAXIPIME 1000 MG IV ×2 (10:00→22:28)
[2024-10-05] MEDS: APRESOLINE 25 MG PO (10:23)
[2024-10-05 11:41] LABS: Glucose - Point of Care 72 mg/dl (70-99)
[2024-10-05 11:46] VITALS: BP 156/74
--- NOTE | 2024-10-05 14:19 | W.PN.NEPH.PH ---
Today's Communication / Plan
-
Tamiflu/ diuretics continue
Assessment/Plan
-
63-year-old male with chronic kidney disease s/p biopsy confirmed Diabetic nephropathy. He has a history of hypertension which has been controlled on the combinations of his carvedilol and lisinopril. He has longstanding diabetes maintained
chronically on insulin and has microvascular complications including diabetic neuropathy, nephropathy. chr anemia with heme +ve stool, L foot osteomyelitis currently status post IV daptomycin through 08/25/2024 CHF and COPD. he said previous
admissions for a covariate in a CHF and [place] I\\
Nephrology consulted for IVY and CHF. is gained 25+ pounds and since last admission he was discharged September 02 for the granting of 2.1 he presents today in a IVY and CHF significant volume overload with a creatinine of 3.6
impression:
acute or chronic kidney disease stage 3B/4.
Anasarca.
Diabetic nephropathy.
Hypertension.
Anemia of chronic disease.
Plan.
weights down
Sodium restriction.
Hypertension persist= volume sensitive hypertension=Titrate medications
Holding JOSE inhibitor or angiotensin receptor lobo..
No indication for acute dialysis at this time diuresis significantly
creatinine stable at 3.3.
fevers of the last 24 hours diagnosed with influenza A= Tamiflu
continue Lasix 80 mg BID. Edema has gone down substantially. Consider changing to PO in the next 24 to 48 hours and suggest torsemide
-
-
Date of Service: October 05, 2024
CC / HPI / ROS
-
Chief Complaint:
CKD IV/edema
History of Present Illness:
Creatinine down to 3.3
Remains hypertensive with most recent one improved
Review of Systems:
Nonoliguric with weights coming down nicely
No chest pain or shortness of breath
Labs
-
Labs:
WBC 6.9 10^3/uL (4.8-10.8) 10/05/24 05:52
RBC 3.13 10^6/uL (4.70-6.10) L 10/05/24 05:52
Hgb 9.0 g/dL (13.0-18.0) L 10/05/24 05:52
Hct 27.3 % (39.0-52.0) L 10/05/24 05:52
Plt Count 155 10^3/uL (130-400) 10/05/24 05:52
Sodium 135 mmol/L (135-145) 10/05/24 05:52
Potassium 3.5 mmol/L (3.5-5.1) 10/05/24 05:52
Chloride 104 mmol/L (98-107) 10/05/24 05:52
Carbon Dioxide 22 mmol/L (22-30) 10/05/24 05:52
BUN 80 mg/dl (9-20) H 10/05/24 05:52
Creatinine 3.4 mg/dL (0.7-1.3) H 10/05/24 05:52
eGFR 19.47 10/05/24 05:52
Glucose 115 mg/dl (70-99) H 10/05/24 05:52
Calcium 7.4 mg/dl (8.4-10.2) L 10/05/24 05:52
Win-I-Ivrfexmbqyk Pept > 62177 pg/ml 09/30/24 11:28
Albumin 2.6 g/dl (3.5-5.0) L 09/30/24 11:28
Physical Exam
-
Vital Signs:
Vital Signs
Temp Pulse Resp BP Pulse Ox
97.7 F 75 21 156/74 95
10/05/24 11:46 10/05/24 11:46 10/05/24 11:46 10/05/24 11:46 10/05/24 11:46
Cardiovascular:: Regular rate and rhythm
Respiratory:: Bilateral: Coarse
Lung Excursion:: Normal
Abdomen:: Nontender
Bowel Sounds:: Normal
Extremity Edema:: +2: Bilateral:
[place] Catheter: No
--- NOTE | 2024-10-05 14:38 | W.PN.CD ---
Today's Communication / Plan
-
Patient feels better than yesterday. Day 2 of treatment for influenza.
Weight is trending down and now down to 84.6. Remains on IV Lasix with close monitoring of renal function. Followed by nephrology.
Impression / Plan
-
IMPRESSION/PLAN: 64M with hypertension, hyperlipidemia, type 2 diabetes mellitus, CKD4 (known diabetic nephropathy), with diabetic neuropathy, MRSA bacteremia with left foot osteomyelitis (on daptomycin), chronic HFpEF recent discharge after
hospitalization for lower extremity cellulitis, COVID-19 pneumonia and HFpEF who presented to the emergency department with increasing weakness and shortness of breath after discharged just a couple days ago.
Rail Operator: Dr. Nuñez
HFpEF, acute on chronic
-improving
-d/c wt on 09/02/2024 77.7 kg readmit at 100.5 kg, now 84.6
-high risk situation with cardiorenal syndrome, IVY
-continue IV diuresis BID
-close monitoring of labs, tele, weight
-echo 06/2024: EF 60-65%, no sig valve disease
-GDMT is limited with his underlying renal disease (no MRA or SGLT2i)
-continue lasix 80mg IV bid
IVY on CKD Stage IV
-Nephrology consulted
Influenza. Dx 10/04/24 - tx per primary team
HTN: uncontrolled and severely elevated
-improving but still high
-continue coreg--10/02/24 increase to 25mg po BID
-10/01/23 hydralazine 25mg tid-->10/02/24 increased to 50TID has yet to receive full dosing
-avoid nephrotoxic agents
NSVT, continue beta-lobo
Hyperkalemia, on [facility] Mondays and Fridays
History of MRSA osteomyelitis
Type 2 diabetes mellitus, per primary
Anemia, of chronic disease, per primary, no acute bleeding
Subjective;
breathing improving, urinating a lot, compression on
Physical Exam
Vital Signs/Labs
Vital Signs
Temp Pulse Resp BP Pulse Ox
97.7 F 75 21 156/74 95
10/05/24 11:46 10/05/24 11:46 10/05/24 11:46 10/05/24 11:46 10/05/24 11:46
10/04/24 10/05/24 10/06/24
06:59 06:59 06:59
Actual Weight 88.167 kg 87.317 kg 84.64 kg
10/05/24 05:52
10/05/24 05:52
Magnesium 2.0 mg/dl (1.6-2.3) 10/03/24 06:06
09/30/24
11:28
Oyo-M-Vylrbwshyvt Pept > [id number]
Physical Exam
Constitutional: No acute distress
EENT: Anicteric
Cardiovascular: Rhythm & rate is regular
Respiratory: Respiratory effort normal
GI: Soft
Data Reviewed
-
Date of Service: October 05, 2024
Medical Decision Making: Reviewed Test Results
Medical Tests (PFT, Pathology etc): Report Reviewed by me
[2024-10-05 15:41] VITALS: BP 166/76
[2024-10-05 16:33] LABS: Glucose - Point of Care 226 mg/dl (70-99)
[2024-10-05] MEDS: APRESOLINE 75 MG PO ×2 (16:52→22:27)
[2024-10-05] MEDS: NOVOLOG FLEXPEN-LOW RESISTANCE 2 UNITS SC (16:55)
[2024-10-05 19:20] VITALS: BP 179/86
[2024-10-05 21:18] LABS: Glucose - Point of Care 192 mg/dl (70-99)
[2024-10-05 23:18] VITALS: BP 174/88
[2024-10-06 03:20] VITALS: BP 165/79
[2024-10-06 06:00] VITALS: BMI 23.4
[2024-10-06 06:47] LABS: Hematocrit 27.3 % (39.0-52.0); Hemoglobin 9.1 g/dL (13.0-18.0); Mean Corp Hgb Conc. 33.3 g/dL (33.0-37.0); Mean Corpuscular Hgb 28.8 pg (27.0-31.0); Mean Corpuscular Volume 86.4 fL (80.0-94.0); Mean Platelet Volume 9.3 fL (7.4-10.4); Platelet Count 162 10^3/uL (130-400); Red Blood Cell Count 3.16 10^6/uL (4.70-6.10); Red Cell Dist. Width 19.6 % (11.5-14.5)
[2024-10-06 07:00] LABS: Blood Urea Nitrogen 75 mg/dl (9-20); Calcium 7.7 mg/dl (8.4-10.2); Carbon Dioxide 22 mmol/L (22-30); Chloride 103 mmol/L (98-107); Estimated Creatinine Clearance 30 ml/min; Glucose 128 mg/dl (70-99); Potassium 3.5 mmol/L (3.5-5.1); Sodium 135 mmol/L (135-145); eGFR 22.63
[2024-10-06 07:11] LABS: Vancomycin Random 13.3 ug/ml
[2024-10-06 07:29] LABS: Glucose - Point of Care 133 mg/dl (70-99)
[2024-10-06] MEDS: NEURONTIN 300 MG PO (07:31)
[2024-10-06] MEDS: WELLBUTRIN SR (12 hour sustained release) 150 MG PO (07:31)
[2024-10-06] MEDS: ATIVAN 1 MG PO (07:32)
[2024-10-06] MEDS: DELTASONE 10 MG PO (07:32)
[2024-10-06] MEDS: TAMIFLU 30 MG PO (07:32)
[2024-10-06] MEDS: FLOMAX 0.4 MG PO (07:32)
[2024-10-06] MEDS: APRESOLINE 75 MG PO (07:34)
[2024-10-06] MEDS: COREG 25 MG PO (07:34)
[2024-10-06] MEDS: LASIX 80 MG IV (07:35)
[2024-10-06] MEDS: HEPARIN 5000 UNITS SC (07:35)
[2024-10-06] MEDS: NOVOLOG FLEXPEN-LOW RESISTANCE SC (07:36)
[2024-10-06 07:46] VITALS: BP 177/89
--- NOTE | 2024-10-06 07:53 | PN.DE.MGMTRT ---
Insulin Management
- -
10/06/2024 Diabetes Management Follow up:
Patient admitted with increasing lower extremity edema and pb gain. Pt was recently d/c'd after hospitalization for LE Cellulitis, COVID-19 pneumonia and HFpEF 08/14 to 09/02/24, admitted 08/04 to 08/08/24 with CHF, and 07/31 to 08/02 acute on
chronic heart failure . PMH: HTN, HLD, Severe Peripheral Neuropathy, CKD III, Lumbar DDD, Anxiety /Depression, MRSA bacteremia with left foot Osteomyelitis (on daptomycin), HFpEF and T2DM.
Recent A1C was 5.7% on 07/10/24, had been 14.1% in 10/2023. Prior to admission was taking 75/25 12 units BID. He has a monitor and states he checks his blood sugars 3x/day. Patient follows with his primary doctor for diabetes care.
Patient is awake alert and oriented, sitting up in chair, watching TV, offers no complaints, able to discuss diabetes management.
10/05 Glucose range 72 to 226, HS glucose 192, fasting glucose this AM 128.
Will continue 70/30 at 12 units BID with low corrective insulin. (prior admission required 12 units 70/30 with breakfast and 14 units with dinner).
Will follow for further needed adjustments.
Pt has a DexCom CGM and a working glucose meter at home.
Diabetes History
- -
Type of Diabetes: 2 requiring insulin
Pre-Admission Diabetes Regimen
10/06/24
06:
Creatinine 3.0 H
Insulin Pump Settings
IP Diabetes Regimen
10/05/24 10/05/24 10/05/24
11:39 16:31 21:17
Glucose
POC Glucose 72 226 H 192 H
10/06/24 10/06/24
06:19 07:28
Glucose 128 H
POC Glucose 133 H
Patient Education
[2024-10-06] MEDS: NOVOLOG MIX 70/30 FLEXPEN 12 UNITS SC (08:36)
--- NOTE | 2024-10-06 08:37 | W.PN.CD ---
Today's Communication / Plan
-
Continue 80 mg IV Lasix twice daily
Home diuretic plan TBD
Cardiology will sign off at this time. Please call with any additional questions or concerns.
Impression / Plan
-
IMPRESSION/PLAN: 64M with hypertension, hyperlipidemia, type 2 diabetes mellitus, CKD4 (known diabetic nephropathy), and HFpEF who presented with massive volume overload, found to have acute on chronic HFpEF and influenza.
Hardboard Coating Machine Operator: Dr. Nuñez
HFpEF, acute on chronic
-improving with diuresis. Weight overall downtrending, stable today. Creatinine improving
-d/c wt on 09/02/2024 77.7 kg readmit at 100.5 kg
-high risk situation with cardiorenal syndrome, IVY
-continue IV diuresis BID
-close monitoring of labs, tele, weight
-echo 06/2024: EF 60-65%, no sig valve disease
-GDMT is limited with his underlying renal disease (no MRA or SGLT2i)
-continue lasix 80mg IV bid
IVY on CKD Stage IV
-Nephrology consulted
Influenza. Dx 10/04/24 - tx per primary team
HTN: uncontrolled and severely elevated
-improving but still high
-continue coreg--10/02/24 increase to 25mg po BID
-10/01/23 hydralazine 25mg tid-->10/05/24 increased to 75TID has yet to receive full dosing
NSVT, continue beta-lobo
Hyperkalemia, on [facility] Mondays and Fridays
History of MRSA osteomyelitis
Type 2 diabetes mellitus, per primary
Anemia, of chronic disease, per primary, no acute bleeding
Subjective;
Feels breathing is almost back to baseline. Flu symptoms have resolved. Swelling is improved. He is wearing compression.
Physical Exam
Vital Signs/Labs
Vital Signs
Temp Pulse Resp BP Pulse Ox
97.7 F 71 17 177/89 95
10/06/24 07:46 10/06/24 07:46 10/06/24 07:46 10/06/24 07:46 10/06/24 07:46
10/05/24 10/06/24 10/07/24
06:59 06:59 06:59
Actual Weight 87.317 kg 84.907 kg
10/06/24 06:19
10/06/24 06:19
Magnesium 2.0 mg/dl (1.6-2.3) 10/03/24 06:06
09/30/24
11:28
Fil-A-Quejcdzrswi Pept > [id number]
Physical Exam
Constitutional: No acute distress and Comfortable
Cardiovascular: Rhythm & rate is regular, Pedal edema present, S1S2 is normal and Murmur/rub/gallop absent
Respiratory: Respiratory effort normal and Lungs clear to auscul.
Neuro/Psych: AO x 3
Data Reviewed
-
Date of Service: October 06, 2024
Medical Decision Making: Reviewed Test Results, Independent Historian Assessment, Test Interpretation and Review of Case with other Provider
EKG: Tracing Personally Visualized and interpreted
Echo: Report Reviewed by me
X-Ray/CT/US/MRI/NUC/PET: Image Personally Visualized and interpreted
Labs: Labs Reviewed by me
[2024-10-06] MEDS: MAXIPIME 1000 MG IV (10:01)
[2024-10-06] MEDS: STERILE WATER FOR INJECTION 10 ML IV (10:02)
--- NOTE | 2024-10-06 11:03 | CM ---
Addendum entered by CICI Sommer 10/06/24 15:57:
Received call from Nancy at [facility] who stated that she can resume care upon discharge. # [phone]
Patient updated. Signed IMM. Now on chart.
Patient has ride home.
Original Note:
Received a call from Nancy at [facility]. Provided update. She stated that she would be able to resume care when patient is cleared for discharge.
Plan: Case management will continue to follow and assist with discharge planning. Home with [facility] when stable.
[2024-10-06 11:19] VITALS: BP 156/75
--- NOTE | 2024-10-06 11:44 | W.PN.NEPH.PH ---
Today's Communication / Plan
-
po lasix
Assessment/Plan
-
63-year-old male with chronic kidney disease s/p biopsy confirmed Diabetic nephropathy. He has a history of hypertension which has been controlled on the combinations of his carvedilol and lisinopril. He has longstanding diabetes maintained
chronically on insulin and has microvascular complications including diabetic neuropathy, nephropathy. chr anemia with heme +ve stool, L foot osteomyelitis currently status post IV daptomycin through 08/25/2024 CHF and COPD. he said previous
admissions for a covariate in a CHF and [place] I\\
Nephrology consulted for IVY and CHF. is gained 25+ pounds and since last admission he was discharged September 02 for the granting of 2.1 he presents today in a IVY and CHF significant volume overload with a creatinine of 3.6
impression:
acute or chronic kidney disease stage 3B/4.
Anasarca.
Diabetic nephropathy.
Hypertension.
Anemia of chronic disease.
Plan.
convert to lasix 40mg po daily
BMP 1 week
dc planning
-
-
Date of Service: October 06, 2024
CC / HPI / ROS
-
Chief Complaint:
CKD IV/edema
History of Present Illness:
Creatinine down to 3.0
BP high stable
K 3.5
diuresing with IV lasix for decompensated HF
Review of Systems:
Nonoliguric
No chest pain or shortness of breath
Labs
-
Labs:
WBC 6.0 10^3/uL (4.8-10.8) 10/06/24 06:19
RBC 3.16 10^6/uL (4.70-6.10) L 10/06/24 06:19
Hgb 9.1 g/dL (13.0-18.0) L 10/06/24 06:19
Hct 27.3 % (39.0-52.0) L 10/06/24 06:19
Plt Count 162 10^3/uL (130-400) 10/06/24 06:19
Sodium 135 mmol/L (135-145) 10/06/24 06:19
Potassium 3.5 mmol/L (3.5-5.1) 10/06/24 06:19
Chloride 103 mmol/L (98-107) 10/06/24 06:19
Carbon Dioxide 22 mmol/L (22-30) 10/06/24 06:19
BUN 75 mg/dl (9-20) H 10/06/24 06:19
Creatinine 3.0 mg/dL (0.7-1.3) H 10/06/24 06:19
eGFR 22.63 10/06/24 06:19
Glucose 128 mg/dl (70-99) H 10/06/24 06:19
Calcium 7.7 mg/dl (8.4-10.2) L 10/06/24 06:19
Rya-X-Rdpssafvoed Pept > 02096 pg/ml 09/30/24 11:28
Albumin 2.6 g/dl (3.5-5.0) L 09/30/24 11:28
Physical Exam
-
Vital Signs:
Vital Signs
Temp Pulse Resp BP Pulse Ox
97.7 F 64 18 156/75 97
10/06/24 07:46 10/06/24 11:19 10/06/24 11:19 10/06/24 11:19 10/06/24 11:19
Cardiovascular:: Regular rate and rhythm
Respiratory:: Bilateral: Coarse
Lung Excursion:: Normal
Abdomen:: Nontender and Soft
Bowel Sounds:: Normal
Extremity Edema:: +1: Bilateral:
[2024-10-06 11:52] LABS: Glucose - Point of Care 189 mg/dl (70-99)
[2024-10-06] MEDS: NOVOLOG FLEXPEN-LOW RESISTANCE 1 UNITS SC (13:13)
--- NOTE | 2024-10-06 13:49 | W.PN.HOSP.TC ---
Today's Communication/Plan
-
possible d/c today
Assessment / Plan
Assessment / Plan
Acute on chronic diastolic heart failure exacerbation
- proBNP greater than 27,000
- continue Tubigrips
- Cardiology signed off
- nephro recommended for transition to lasix 40mg/d
Acute kidney injury on CKD stage 4 (baseline Cr 1.7)
Acute cardiorenal state in setting of CHF
Acute Metabolic acidosis
-Renal function is stabilized at 3 at this point
-Patient have history of diabetic nephropathy by biopsy
Flu A infection
Superimposed bacterial pneumonia
- CT: bilateral nonobstructing renal calculi. there are no obstructing renal or ureteral calculi. there is no hydronephrosis or hydroureter.
- CXR: moderate diffuse coarsening of the interstitial markings in the right perihilar region extending into the upper and lower portions of the right lung consistent with pneumonia and associated with small right pleural effusion
- Influenza A positive: continue renally-dose Tamiflu, day 2
- On empiric vancomycin/cefepime
Recent hospitalization for post-COVID PNA
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
- completed Molnupiravir/steroids along with Meropenem course and remains on Prednisone 20mg
- will reduce to 10mg daily and continue until seen by Pulm in office
Steroid induced azotemia
History of MRSA cellulitis
IDDM
steroid induced hyperglycemia
- recent A1c 5.7%
- continue 70/30 10 units BID + SSI
- TOWEL INSPECTOR consulted for insulin management
Nephrotic range proteinuria
Positive proteinase 3 antibodies
essential Hypertension
- continue Coreg
- continue Hydralazine; increase to 75mg TID
- monitor BPs and titrate meds as able
Chronic anemia
Left foot osteomyelitis treated outpatient with daptomycin last Month
Anxiety
- continue Ativan/Gabapentin
Hyponatremia
DVT ppx: SC Heparin
Code: Full
Anticipated Discharge: Today
Subjective/Interval History
-
Date of Service: October 06, 2024
Sitting comfortably in chair
not on o2
afebrile overnight
Objective Data
-
Labs:
Laboratory Results
10/06/24
06:19
WBC 6.0
Hgb 9.1 L
Hct 27.3 L
Plt Count 162
Sodium 135
Potassium 3.5
Chloride 103
Carbon Dioxide 22
BUN 75 H
Creatinine 3.0 H
Glucose 128 H
Calcium 7.7 L
Vital Signs:
Vital Signs
Temp Pulse Resp BP Pulse Ox
97.7 F 64 18 156/75 97
10/06/24 07:46 10/06/24 11:19 10/06/24 11:19 10/06/24 11:19 10/06/24 11:19
I&O
10/05/24 10/06/24 10/07/24
06:59 06:59 06:59
Intake Total 1140 / 1140 1260 / 1260
Balance 1140 / 1140 1260 / 1260
Review of Systems
-
Respiratory: Reports No Symptoms
Cardiac: Reports No Symptoms
Abdomen/GI: Reports No Symptoms
Physical Exam
-
General: No Apparent Distress
HEENT: Normocephalic and Atraumatic
Respiratory: Negative Wheezes
Cardiac: Regular Rhythm and S1/S2
GI: Soft, Nontender and Nondistended
Neuro: AO x 3
Psych: Calm
[2024-10-06 15:32] VITALS: BP 120/69
--- NOTE | 2024-10-07 14:44 | W.HF.CON ---
Heart Failure
- LV Function
Left ventricular function study result: LV Ejection fraction >/= 50% (ECHO 07/10/24)
Ejection Fraction Percentage: 60-65
- ARNI
Patient already on ARNI: No
Heart Failure ARNI Not Indicated: LV Ejection Fraction >/= 40%
- ACEI/ARB
Patient already on ACEI/ARB: No
Heart Failure ACEI/ARB Not Indicated: LV Ejection Fraction > 40%
- Beta Bonita
Patient already on Evidence Based Beta Bonita: Yes
- Mineralocorticord Receptor Antagonist
Patient already on MRA: No
Heart Failure MRA Not Indicated: LV Ejection Fraction > 40%
- SGLT-2 Inhibitor
Patient already on SGLT-2 Inhibitor: No
Heart Failure SGLT-2 Inhibitor Contraindication: eGFR < 25
- NYHA CHF Classification
NYHA CHF Classification Level: Class III - Symptoms w/ min exertion, interferes w/ nml daily activity
- ACC/AHA Stage
ACC/AHA Stage: Stage C: Symptomatic Heart Failure
--- NOTE | 2024-10-07 16:58 | W.DCSUMMARY ---
Discharge Summary
Discharge Data
Date of Admission: 09/30/24
Date of Discharge: 10/06/24
-
Pending Results: No
Hospital Course
Discharging Physician : Dr iWll Segal
Disposition : To home
Primary care physician : Dr Nik Dumont
Principal Discharge diagnosis :
Acute on chronic diastolic congestive heart failure
Acute kidney injury on chronic kidney disease stage IV
Presumed cardiorenal syndrome
Metabolic acidosis
Influenza A viral pneumonia
Superimposed bacterial pneumonia
Chronic Discharge diagnosis :
Recent hospitalization for COVID-19 viral infection
Insulin-dependent diabetes mellitus
Nephrotic range proteinuria
Diabetic nephropathy
Positive proteinase 3 antibodies
Essential hypertension
Anemia of chronic disease
History of left foot osteomyelitis
Anxiety
Hospital Course :
Patient is a 64-year-old male with mentioned past medical history came to ER for having increased lower extremity swelling and weight gain. Patient also was having exertional dyspnea. Evaluation in ER patient was noted to be in volume overload
state with increased proBNP level. Patient was diagnosed to having diastolic heart failure exacerbation was started on IV diuretics. Patient had some elevated creatinine and there was concern of associated cardiorenal syndrome as well. Cardiology
and nephrology was involved in care. Patient had improvement in renal function although did not completely normalize, discharge creatinine of 3. Patient is planned to follow-up with nephrology in the office postdischarge.
Patient also had new onset of fever and dyspnea. Chest x-ray was showing new infiltrate. Patient was tested for flu and was found to be positive for influenza A. There was concern of possibly superimposed bacterial pneumonia with elevated
procalcitonin. Patient was started on broad-spectrum antibiotic and Tamiflu course. Patient did improvement in pulmonary symptoms in 72 hours.
Post medical stabilization patient was discharged home at this point.
Important imaging findings :
None
Procedure findings :
None
Discharge Plan
-
Patient Disposition: Home (Routine Discharge)
Discharge Diagnosis/Procedures: HF exacerbation, Flu A infection, IVY On CKD IV
Condition: Fair
Diet: Low Cholesterol and Low Sodium
Activity: As tolerated
Driving Restrictions: No driving for 24 hours
Bathing Restrictions: OK to Shower
Instructions: *CBC Heart Failure Instructions
Referrals:
Dustin Durant MD [Active] - in two to four weeks
Nik Dumont MD [Family Provider] - in one week
Prescriptions:
New
carvedilol 25 mg Tablet
25 mg PO BID Qty: 60 2RF
cefdinir 300 mg capsule
300 mg PO DAILY 10 Days Qty: 3 0RF
furosemide [Lasix] 40 mg tablet
40 mg PO DAILY Qty: 30 2RF
prednisone 10 mg tablet
10 mg PO DAILY Qty: 8 0RF
Rx Instructions:
Take 1 tab daily for 5 days THEN
Take Half tab daily for 5 days THEN stop
hydralazine 50 mg Tablet
75 mg PO TID 30 Days Qty: 135 2RF
Continued
lorazepam 1 mg tablet
1 mg PO TID
Patient Comments:
Last filled 05/14/24 #270 for 90 days
bupropion HCl [Wellbutrin SR] 150 mg Tablet Sustained-Release 12 Hr
150 mg PO BID
gabapentin 300 mg Capsule
300 mg PO BID
tamsulosin 0.4 mg Capsule
0.4 mg PO DAILY Qty: 30 0RF
insulin lispro protamin-lispro [Humalog Mix 75-25 KwikPen] 100 unit/mL (75-25) insulin pen
12 unit SC BID Qty: 15 1RF
Rx Instructions:
BID at 8 AM and 5 PM
acetaminophen [Tylenol Extra Strength] 500 mg Tablet
1,000 mg PO Q6HPRN PRN (Reason: mild pain)
Lokelma 10 gram powder in packet
10 g PO MOFR
Rx Instructions:
take 10 grams on Sunday and Sunday weekly x 3 weeks
Discontinued
carvedilol 12.5 mg Tablet
12.5 mg PO BID Qty: 60 0RF
prednisone 20 mg Tablet
20 mg PO DAILY Qty: 30 1RF
furosemide 20 mg tablet
20 mg PO MOWEFR@0800
Discharge Orders:
Discharge Patient (As Directed); Ordered 10/06/24
Ordered By: Will Segal
Discharge Date and Time
Discharge Date/Time: 10/06/24 16:01
Print Language: BRUNEIAN
== END 2024-10-06 16:01 | disposition home health service (06) | DRG 291 ==
LOC: 3 WEST ACU 16:32
PROVIDERS: Emergency Medicine; Internal Medicine; Physician Assistant Medical; ADMITTING PHYSICIAN Hospitalist; ATTENDING PHYSICIAN Hospitalist; CONSULT PHYSICIAN Internal Medicine Nephrology; EMERGENCY PHYSICIAN Emergency Medicine; FAMILY PHYSICIAN Internal Medicine
DX: I13.0 Hypertensive heart and chronic kidney disease with heart failure and stage 1 through stage 4 chronic kidney disease, or unspecified chronic kidney disease (principal); I50.33 Acute on chronic diastolic (congestive) heart failure; J10.01 Influenza due to other identified influenza virus with the same other identified influenza virus pneumonia; J15.9 Unspecified bacterial pneumonia; E87.21 Acute metabolic acidosis; N17.9 Acute kidney failure, unspecified; N18.4 Chronic kidney disease, stage 4 (severe); J84.9 Interstitial pulmonary disease, unspecified; E87.1 Hypo-osmolality and hyponatremia; Z86.16 Personal history of COVID-19; E11.22 Type 2 diabetes mellitus with diabetic chronic kidney disease; E11.40 Type 2 diabetes mellitus with diabetic neuropathy, unspecified; E11.69 Type 2 diabetes mellitus with other specified complication; D63.1 Anemia in chronic kidney disease; F41.9 Anxiety disorder, unspecified; Z87.01 Personal history of pneumonia (recurrent); M51.360 Other intervertebral disc degeneration, lumbar region with discogenic back pain only; F32.A Depression, unspecified; N40.0 Benign prostatic hyperplasia without lower urinary tract symptoms; Z79.4 Long term (current) use of insulin; Z79.899 Other long term (current) drug therapy; J44.9 Chronic obstructive pulmonary disease, unspecified; Z11.52 Encounter for screening for COVID-19; R79.89 Other specified abnormal findings of blood chemistry; T38.0X5A Adverse effect of glucocorticoids and synthetic analogues, initial encounter
CPT/HCPCS: 71046; 74176; 80048; 80053; 80202; 81003; 81015; 82962; 83735; 83880; 84484; 85025; 85027; 86140; 87040; 87086; 87502; 87641; 87811; 93005; 97116; 97162; 97166; 97530

== ENCOUNTER 2024-10-16 20:09 | Inpatient (IN) | payer MEDICARE, OTHER, SELFPAY ==
[2024-10-16 15:29] VITALS: BP 125/72
--- NOTE | 2024-10-16 15:38 | ED.GENMED ---
ED Provider Triage
-
Patient seen by provider in Triage?: Seen in Triage
Attestation: A medical screening examination has been initiated by a qualified medical provider. Based on the assessment performed at this time, it has been determined that an emergent medical condition may exist and the patient has been informed
that further medical evaluation and possible additional diagnostic testing may be needed.
HPI: 64yoM here with weight gain, leg swelling, and abdominal distention. Recently admitted for CHF exacerbation/cardiorenal syndrome. Gained 20+ pounds since discharge on 10/07. Also having dyspnea on exertion.
GENERAL: Alert , in no apparent distress
EYE: No visual abnormalities.
NECK: Trachea midline
ENT: No visible abnormalities.
LUNGS: No acute respiratory distress
NEUROLOGICAL: Alert and oriented
SKIN: Skin intact. No visible changes.
MUSCULOSKELETAL: Moving extremities normally
PSYCH: Normal and appropriate interaction.
This is a medical evaluation conducted in person to initiate diagnostic evaluation and provide initial therapeutics. Please see further documentation by the treating clinician.
3-4+ pitting edema on exam. CBC, CMP, BNP, EKG, and CXR ordered.
History of Present Illness
General
Chief Complaint: Weight Changes
Source: patient
Exam Limitations: none
Time Seen by Provider: 10/16/24 18:22
History of Present Illness
History of Present Illness:
64yoM with a history of CHF, CKD, and hypertension presenting for evaluation of leg swelling and weight gain. Patient was recently admitted for a CHF exacerbation as well as cardiorenal syndrome. He weighed 187 pounds at time of discharge on
10/06/2024. He is now up to 210 pounds. He reports increasing leg swelling as well as abdominal distention. He reports dyspnea on exertion but denies any shortness of breath at rest. He was discharged on 40 mg Lasix daily which was increased to
80 mg Lasix 2 days ago. He has not noticed any improvement with the increased dose. He was seen by his PCP today and was referred to the ED for evaluation.
Past History
Past History
ED Past Medical History: HTN, IDDM, Psychiatric (Anxiety) and Other (Low back pain)
ED Past Surgical History: Orthopedic (Back surgeries) and Other (Amputation left fifth toe)
Social History
Tobacco: Non-smoker
Alcohol: Occasional
Drug: None
Personal:
Living: other (Resides with brother )
Employment: Disabled
Family History
Family History: Other (Noncontributory)
Phy Exam
General Physical Exam
General Presentation: well appearing and no apparent distress
General Skin: warm and dry
General Habitus: normal
General Mental: alert
ENT Exam
ENT Exam: normocephalic
Cardiovascular Exam
Cardiovascular Exam: regular rate/rhythm and other (3+ pitting edema to bilateral lower extremities)
Pulmonary Exam
Pulmonary Exam: lungs clear, no respiratory distress, no rhonchi and other (Bibasilar rales)
Gastrointestinal Exam
Gastrointestinal Exam: soft and distended
Neurological Exam
Neurological Exam: alert
Yesy Coma Scale
Eye Opening: Spontaneous
Verbal Response: Oriented
Motor Response: Obeys Commands
GCS Total Score: 15
Skin Exam
Skin Exam: normal color and warm/dry
Psychiatric Exam
Psychiatric Exam: normal mood/affect
Scores
Heart Failure Risk
Heart Failure Risk Score: Not Applicable
Course
Orders/Labs/Results
Orders:
Orders
10/16/24 15:37
CR Chest - 2 Views Urgent
Comment:
Reason For Exam: Dyspnea on exertion
10/16/24 15:40
Electrocardiogram (*1) Urgent
Reason for Study: Shortness of Breath
EKG- Treatment ONCE
10/16/24 15:43
Complete Blood Count/With Diff Urgent
Comprehensive Metabolic Panel Urgent
NT-proBNP Urgent
10/16/24 18:55
Furosemide [Lasix] 80 mg IV NOW STA
10/16/24 19:31
Admit/Transfer Patient As Directed
Co-Sign Provider:
Level of Care: Inpatient admission
Assign to:: Telemetry
Physician / Group: hospitalist
Diagnosis: CHF exacerbation
Reason for Telemetry: Subacute Heart Failure
Date to Stop Telemetry: 10/18/24
Time to Stop Telemetry: 11:00
Reason for Hospitalization: CHF exacerbation
Expected length of stay greater than two midnights?: Yes
ELOS- Estimated Length of Stay in days: 2
I certify the patient meets the requirements for IP care: Yes
PRN Pain Medication Management As Directed
May give lesser potent ordered pain med per pt: Yes
preference::
Protocol:: Medication orders for pain may be administered in a
manner that supports deferring to patient preference
when the pt is:
- Requesting an ordered lesser potent pain medication.
Least to most potent pain medications are defined
as: acetaminophen < NSAID < tramadol < opioids
(morphine, oxycodone, hydromorphone).
- Requesting a lesser dose of the same medication IF
ORDERED.
- Requesting a less intrusive route of administration
if both routes are prescribed by the provider (PO <
IV).
10/16/24 19:32
Code Status As Directed
Resuscitation Status: Full Code
10/18/24 11:00
DC Protocol for Telemetry ONCE
Abnormal Lab Results
10/16/24
15:43
RBC 2.77 L 10^6/uL
(4.70-6.10)
Hgb 8.2 L g/dL
(13.0-18.0)
Hct 25.9 L %
(39.0-52.0)
MCHC 31.7 L g/dL
(33.0-37.0)
RDW 20.0 H %
(11.5-14.5)
Abs Immat Gran (auto) 0.1 H 10^3/uL
(0-0.05)
Absolute Lymphs (auto) 0.8 L 10^3/uL
(1.2-3.4)
Immature Gran % 1.2 H %
(0-0.5)
Lymphocytes % 16.0 L %
(20.5-51.1)
Potassium 5.6 H mmol/L
(3.5-5.1)
Chloride 111 H mmol/L
(98-107)
Carbon Dioxide 19 L mmol/L
(22-30)
BUN 90 H mg/dl
(9-20)
Creatinine 3.5 H mg/dL
(0.7-1.3)
Glucose 136 H mg/dl
(70-99)
Calcium 8.1 L mg/dl
(8.4-10.2)
ALT 76 H U/L
(0-50)
Alkaline Phosphatase 134 H U/L
(38-126)
Total Protein 5.9 L g/dl
(6.3-8.2)
Albumin 3.1 L g/dl
(3.5-5.0)
10/16/24 15:43
10/16/24 15:43
Vital Signs
Initial and Last Documented VS:
Initial Vital Signs
Temp Pulse Resp BP Pulse Ox
97.5 F 66 20 125/72 98
10/16/24 15:29 10/16/24 15:29 10/16/24 15:29 10/16/24 15:29 10/16/24 15:29
Last Documented Vital Signs
Temp Pulse Resp BP Pulse Ox
97.5 F 65 20 175/94 97
10/16/24 15:29 10/16/24 19:08 10/16/24 15:29 10/16/24 19:08 10/16/24 19:08
MDM/Problems Addressed
Differential Diagnosis Includes:
64yoM here with weight gain, leg swelling, abdominal distention, and exertional dyspnea. Recently admitted for CHF exacerbation. Up 20+ pounds in the past 10 days. VSS. He is non-toxic appearing. He appears clinically volume overloaded on exam.
Differential diagnosis includes but is not limited to: CHF exacerbation, cardiorenal syndrome, IVY
Patient initially seen in triage. Creatinine 3.5, up from 3.0 at discharge. Potassium mildly elevated at 5.6. BNP >61268. CXR shows mild pulmonary edema per my interpretation. 80mg IV Lasix ordered and patient admitted for further management.
*EKG
Interpreted by ED Provider?: Yes
EKG Intrepretation Date: 10/16/24
Heart Rate: 67
Rate: normal
Rhythm: sinus
[place]: normal axis
Interval: normal interval
QRS Pattern: normal QRS
Ischemia: no ischemia
*Critical Care Note
Total Time (30-74mins, 75-104mins- exclusive of procedures): Not Applicable
ED Attending Note
-
Portions of this chart may have been created with voice recognition software.� Occasional wrong word or��sound alike� substitutions may have occurred due to the inherent limitations of voice recognition software.
Discharge Plan
Departure
Patient Disposition: Admit
Date of Disposition: 10/16/24
Time of Disposition: 19:02
Presentation/result/management discussed w/ accepting MD/DO: Hospitalist
Discharge Problem:
Acute exacerbation of CHF (congestive heart failure)
Prescriptions:
No Action
lorazepam 1 mg tablet
1 mg PO TID
Patient Comments:
Last filled 09/12/24 #270 for 90 days
bupropion HCl [Wellbutrin SR] 150 mg Tablet Sustained-Release 12 Hr
150 mg PO BID
gabapentin 300 mg Capsule
300 mg PO BID
tamsulosin 0.4 mg Capsule
0.4 mg PO DAILY Qty: 30 0RF
insulin lispro protamin-lispro [Humalog Mix 75-25 KwikPen] 100 unit/mL (75-25) insulin pen
12 unit SC BID Qty: 15 1RF
acetaminophen [Tylenol Extra Strength] 500 mg Tablet
1,000 mg PO Q6HPRN PRN (Reason: mild pain)
Lokelma 10 gram powder in packet
10 g PO MOFR
Rx Instructions:
take 10 grams on Sunday and Sunday weekly x 3 weeks
carvedilol 25 mg Tablet
25 mg PO BID Qty: 60 2RF
furosemide [Lasix] 40 mg tablet
40 mg PO DAILY Qty: 30 2RF
prednisone 10 mg tablet
10 mg PO DAILY Qty: 8 0RF
Rx Instructions:
Take 1 tab daily for 5 days THEN
Take Half tab daily for 5 days THEN stop
hydralazine 50 mg Tablet
75 mg PO TID 30 Days Qty: 135 2RF
Referrals:
Nik Dumont MD [Family Provider] -
Interventions
Interventions:
*Risk Screen - Suicide Last Done: 10/16/24 15:29
*General Assessment Last Done: 10/16/24 19:08
*Neglect/Abuse Screening Last Done: 10/16/24 15:29
*ED COVID-19 Vaccine History Last Done: 10/16/24 15:29
ED- Cardiac Assessment Last Done: 10/16/24 19:13
ED- Pulmonary Assessment Last Done: 10/16/24 19:13
ED-Skin Assessment Last Done: 10/16/24 19:13
Discharge Date and Time
Print Language: LAO
[2024-10-16 15:49] LABS: % Basophils 0.4 % (0-2); % Eosinophils 3.3 % (0-6); % Immature Granulocytes 1.2 % (0-0.5); % Monocytes 7.6 % (1.7-9.3); % Neutrophils 71.5 % (42.2-75.2); Absolute Eosinophils 0.2 10^3/uL (0-0.7); Absolute Immature Granulocytes 0.1 10^3/uL (0-0.05); Absolute Lymphocytes 0.8 10^3/uL (1.2-3.4); Absolute Monocytes 0.4 10^3/uL (0.1-0.6); Absolute Neutrophils 3.7 10^3/uL (1.4-6.5); Hematocrit 25.9 % (39.0-52.0); Hemoglobin 8.2 g/dL (13.0-18.0); Mean Corp Hgb Conc. 31.7 g/dL (33.0-37.0); Mean Corpuscular Hgb 29.6 pg (27.0-31.0); Mean Corpuscular Volume 93.5 fL (80.0-94.0); Mean Platelet Volume 9.1 fL (7.4-10.4); Nucleated Red Blood Cells % 0 % (-); Platelet Count 166 10^3/uL (130-400); Red Blood Cell Count 2.77 10^6/uL (4.70-6.10); White Blood Cell Count 5.1 10^3/uL (4.8-10.8)
[2024-10-16 16:07] LABS: ALT (SGPT) 76 U/L (0-50); AST (SGOT) 26 U/L (17-59); Albumin 3.1 g/dl (3.5-5.0); Alkaline Phosphatase 134 U/L (38-126); Blood Urea Nitrogen 90 mg/dl (9-20); Calcium 8.1 mg/dl (8.4-10.2); Carbon Dioxide 19 mmol/L (22-30); Chloride 111 mmol/L (98-107); Glucose 136 mg/dl (70-99); Potassium 5.6 mmol/L (3.5-5.1); Sodium 139 mmol/L (135-145); Total Bilirubin 0.5 mg/dl (0.2-1.3); Total Protein 5.9 g/dl (6.3-8.2); eGFR 18.81
[2024-10-16 16:10] LABS: NT-proBNP > 27000 pg/ml
[2024-10-16] MEDS: LASIX 80 MG IV (19:03)
[2024-10-16 19:08] VITALS: BP 175/94
--- NOTE | 2024-10-16 19:20 | HPS.HSE ---
Family Physician
-
Family Physician: Nik Dumont
Chief Complaint
-
Acute weight gain and edema
History of Present Illness
This is a 64-year-old male with past medical history significant for CHF with preserved EF, hypertension, CKD 4, insulin-dependent diabetes, hyperlipidemia was recently admitted to the hospital with pneumonia, influenza, CHF exacerbation and
discharged on Lasix with a weight of 180 presenting to the emergency department with a week of increased weight gain.
Patient reported that since about 1 week he has had increased lower extremity edema, he has had about a 20 pound weight gain since he was discharged. He had increased dose of diuretics from 40 mg to 80 mg daily starting 2 days ago without any
significant improvement. Patient reports no significant increased urine output. He reports that he does attempt to force himself to urinate and feels some sense of urinating but he has only limited output usually. Occasionally does have increased
urine output. He denies any incontinence. He denies any pelvic discomfort. He denies fevers or chills. He denies any other medication changes. He denies any NSAID use.
He reports compliance with dietary restrictions of about 48 ounces of fluids.
On arrival in the emergency department he was afebrile, he was satting 100% on room air. Blood pressure was 125/70 with a pulse of 66. His CBC was unremarkable and unchanged from prior with known chronic anemia. Electrolytes were stable with a
potassium of 5.6, BUN and creatinine were elevated at 19 and 3.5 respectively. ECG shows a normal sinus rhythm at a rate of 67. Chest x-ray is unchanged from prior with increased interstitial infiltrates.
Medical History
Past Medical History
Past Medical History: Reports CHF (preserved EF), HTN, Hypercholesterolemia, IDDM and Renal Failure (CKD 4)
Additional Past Medical History:
DUANE
Past Surgical History: Reports Orthopedic
Social History
Tobacco: Non-smoker
Alcohol: Occasional
Drug: None
Personal: Single
Living: With Family
Employment: Not Employed
Family History
Family History: Not pertinent
Allergies / Home Medications
Allergies reflects when Allergies were last updated in [facility].
Home Medications with original date entered in [facility]
Allergy/Medication List:
Allergies
Allergy/AdvReac Type Severity Reaction Status Date / Time
No Known Allergies Allergy Verified 10/16/24 15:33
Home Medications
bupropion HCl 150 mg tablet,12 hr sustained-release (Wellbutrin SR) 150 mg PO BID Depression 11/11/23
lorazepam 1 mg tablet 1 mg PO TID Anxiety 11/11/23
gabapentin 300 mg capsule 300 mg PO BID pain 07/09/24
insulin lispro protamine-lispro 100 unit/mL (75-25) subcutaneous pen (Humalog Mix 75-25 KwikPen) 12 unit (0.12 mL) SC BID Diabetes #15 mL 09/02/24
tamsulosin 0.4 mg capsule 0.4 mg PO DAILY #30 caps 09/02/24
acetaminophen 500 mg tablet (Tylenol Extra Strength) 1,000 mg PO Q6HPRN PRN mild pain 09/30/24
sodium zirconium cyclosilicate 10 gram oral powder packet (Lokelma) 10 g PO MOFR to lower potassium levels 10/02/24
carvedilol 25 mg tablet 25 mg PO BID Essential HTN #60 tabs 10/06/24
furosemide 40 mg tablet (Lasix) 40 mg PO DAILY Heart disease/condition #30 tabs 10/06/24
hydralazine 50 mg tablet 75 mg (1.5 x 50 mg) PO TID Heart disease/condition 30 days #135 tabs 10/06/24
prednisone 10 mg tablet 10 mg PO DAILY #8 tabs 10/06/24
Review of Systems
-
History Source: Patient
Constitutional: Reports No Symptoms
EENT: Reports No Symptoms
Respiratory: Reports No Symptoms
Cardiac: Reports No Symptoms
Abdomen/GI: Reports No Symptoms
: Reports Difficulty Voiding
Musculoskeletal: Reports No Symptoms
Neurological: Reports No Symptoms
Endocrine: Reports No Symptoms
Hematologic/Lymphatic: Reports No Symptoms
Psych: Reports No Symptoms
Physical Exam
Vital Signs
Vital Signs
Temp Pulse Resp BP Pulse Ox
97.5 F 65 20 175/94 97
10/16/24 15:29 10/16/24 19:08 10/16/24 15:29 10/16/24 19:08 10/16/24 19:08
Physical Exam
General: No Apparent Distress and Conversant
HEENT: NormoCephalic, Anicteric, Moist mucous membranes and Atraumatic
Respiratory: Clear
Cardiac: S1/S2 and Regular Rhythm
Breast: Deferred by me
GI: Soft, Non Tender and Non Distended
Rectal: Deferred by Provider
Genito-urinary: Deferred by me
Musculoskeletal: No Clubbing, No Cyanosis, Edema, Left Lower Extremity and Edema, Right Lower Extremity
Neuro: AO x 3 and Nonfocal/grossly intact
Psych: Calm
Laboratory Results
-
10/16/24 15:43
10/16/24 15:43
Laboratory Results
Total Bilirubin 0.5 mg/dl (0.2-1.3) 10/16/24 15:43
AST 26 U/L (17-59) 10/16/24 15:43
ALT 76 U/L (0-50) H 10/16/24 15:43
Alkaline Phosphatase 134 U/L (38-126) H 10/16/24 15:43
Data Reviewed
-
Diagnostic Radiology: Image Personally Visualized and interpreted
Medical Tests (Nuc Med, Echo, EKG etc): Image Personally Visualized and interpreted
Lab Data: Labs Reviewed by me
Old Records: Reviewed
Impression/Plan
-
IMPRESSION:
64 y.o with CKD 4, IDDM, CHF w/ p EF, HTN presenting with increased LE edema, weight gain and increased Cr from 3 to 3.5. BNP > 19827. Chest xray with interstitial edema but no increased O2 requirement or increased wob. ECg shows no acute
ischemia. Reports compliance with fluid restriction. On review some urinary difficulty.
PLAN:
1. CHF Exacerbation - Acute on chronic with weight gain and mild interstitial edema.
- admit to telemetry
- likely with gut edema, IV lasix 80mg bid. Consider metolazone Will need oral torsemide
- 48 oz fluid restriction
- echo in am
- cardiology consult
- given IVY, no SGLT II
- continue carvedilol
2. Urinary retention - h/o bph, ? retention but no prior history of retention
- bladders can protocol for now
- continue tamsulosin
- manzanares if significant retention > 350 ml
3. IVY - cardiorenal suspected with weight gain. No exposures to nephrotoxins and HD stable.
- check u/a for sediments
- consider renal bladder u/s in am
- diuresis as above
- nephrology consult
4. NIDDM
- continue 70/30 bid with sliding scale insulin
DVT PPX - heparin sq
Code status - full code
[2024-10-16 21:31] VITALS: BP 165/88
[2024-10-16 22:41] VITALS: BP 172/91
[2024-10-17] VITALS (10 sets, daily range): BP systolic 123–184; BP diastolic 69–100; BMI 25.6
[2024-10-17] MEDS: WELLBUTRIN SR (12 hour sustained release) PO (01:49)
[2024-10-17] MEDS: APRESOLINE 75 MG PO ×2 (02:06→08:24)
[2024-10-17] MEDS: COREG 25 MG PO ×3 (02:07→20:56)
[2024-10-17] MEDS: ATIVAN 1 MG PO ×4 (02:07→22:45)
[2024-10-17] MEDS: NEURONTIN 300 MG PO ×3 (02:07→20:57)
[2024-10-17] MEDS: HEPARIN 5000 UNITS SC ×3 (02:07→15:53)
[2024-10-17 02:28] LABS: Urine Albumin 3+ (Neg - Trace); Urine Bilirubin Negative (Negative); Urine Character Clear (Clear); Urine Color Yellow; Urine Glucose 1+ (Negative); Urine Ketone Negative (Negative); Urine Leukocyte Negative (Negative); Urine Nitrite Negative (Negative); Urine Occult Blood 1+ (Negative); Urine Specific Gravity 1.015 (<1.030); Urine Urobilinogen Negative (Neg - 1+)
[2024-10-17 03:25] LABS: Urine Bacteria Few (Negative); Urine Squamous Cell 0-2 /LPF (Few); Urine White Cell 0-2 /HPF (0-5)
[2024-10-17 06:06] LABS: Blood Urea Nitrogen 93 mg/dl (9-20); Calcium 8.2 mg/dl (8.4-10.2); Carbon Dioxide 19 mmol/L (22-30); Chloride 112 mmol/L (98-107); Glucose 88 mg/dl (70-99); Magnesium 2.4 mg/dl (1.6-2.3); Potassium 5.4 mmol/L (3.5-5.1); Sodium 139 mmol/L (135-145); eGFR 19.47
[2024-10-17 06:37] LABS: TSH Reflex To Free T4 1.32 uIU/ml (0.47-4.68)
--- NOTE | 2024-10-17 07:51 | CON.CAR ---
Consultation
Consultation Request
Date/Time Consultation Requested: 10/17/2024
Date/Time Consultation Performed: 10/17/2024
Requesting Provider: Dr. Huber
Performing Provider: Dr. Nuñez
Reason for Consultation: Weight gain
Medical History
-
Chief Complaint: Shortness of breath, weakness
History of Present Illness:
Luis Meier is a 64-year-old male with hypertension, hyperlipidemia, type 2 diabetes mellitus with diabetic neuropathy, MRSA bacteremia with left foot osteomyelitis (on daptomycin), chronic kidney disease, and HFpEF who recently discharged on
10/06/2024 with a weight of 84.9 kg after a 15 kg diuresis. He presents again with a 15 kg weight gain over the last 10 days. Recent hospital placement also notable for influenza A on 10/04/2024. Prior to that he had a an additional prolonged
hospitalization for COVID-19 pneumonia, heart failure and cellulitis. He reports upon discharge he went home and was compliant with his
Fluid and dietary restriction. He believes he was taking Lasix 40 mg once a day. He had no response to this and was continuing to gain weight, he sought care and was told to double his Lasix dose to 80 mg a day. With this, he still continued to
gain weight and have poor output. He saw his PCP yesterday who advised him to return to [facility] for care. He states since receiving the IV Lasix he is urinating a lot.
Past Medical History
Past Medical History: CHF (HFpEF), HTN, Hypercholesterolemia, NIDDM, Renal Failure (CKD) and Other (MRSA bacteremia [on daptomycin])
Social History
Tobacco: Non-Smoker
Alcohol: None
Drug: None
Personal:
Living: With Family (Brother)
Employment: Retired ([employer])
Family History
Family History: Reviewed & Not Pertinent (Denies early CAD and SCD.)
Allergies / Home Medications
Allergy/AdvReac Type Severity Reaction Status Date / Time
No Known Allergies Allergy Verified 10/16/24 15:33
�Medication �Instructions �Recorded �Confirmed �Type
bupropion HCl 150 mg tablet,12 hr 150 mg PO BID Depression 11/11/23 10/16/24 History
sustained-release (Wellbutrin SR)
lorazepam 1 mg tablet 1 mg PO TID Anxiety 11/11/23 10/16/24 History
gabapentin 300 mg capsule 300 mg PO BID pain 07/09/24 10/16/24 History
insulin lispro protamine-lispro 12 unit (0.12 mL) SC BID Diabetes 09/02/24 10/16/24 Rx
100 unit/mL (75-25) subcutaneous #15 mL
pen (Humalog Mix 75-25 KwikPen)
tamsulosin 0.4 mg capsule 0.4 mg PO DAILY #30 caps 09/02/24 10/16/24 Rx
acetaminophen 500 mg tablet 1,000 mg PO Q6HPRN PRN mild pain 09/30/24 10/16/24 History
(Tylenol Extra Strength)
sodium zirconium cyclosilicate 10 10 g PO MOFR to lower potassium 10/02/24 10/16/24 History
gram oral powder packet (Lokelma) levels
carvedilol 25 mg tablet 25 mg PO BID Essential HTN #60 tabs 10/06/24 10/16/24 Rx
furosemide 40 mg tablet (Lasix) 40 mg PO DAILY Heart 10/06/24 10/16/24 Rx
disease/condition #30 tabs
hydralazine 50 mg tablet 75 mg (1.5 x 50 mg) PO TID Heart 10/06/24 10/16/24 Rx
disease/condition 30 days #135 tabs
prednisone 10 mg tablet 10 mg PO DAILY #8 tabs 10/06/24 10/16/24 Rx
Review of Systems
-
All other systems: Negative unless noted
Physical Exam
Vital Signs
Temp Pulse Resp BP Pulse Ox
97.5 F 71 16 164/89 96
10/16/24 15:29 10/17/24 06:43 10/17/24 01:30 10/17/24 06:43 10/17/24 06:43
Lab Results
10/16/24 15:43
10/17/24 05:38
Ldh-W-Itlvlkthfav Pept > 86474 pg/ml 10/16/24 15:43
Physical Exam
General: Well Developed and Well Nourished
HEENT: Normocephalic
Respiratory: Clear; Negative Wheezes, Crackles or Rhonchi
Cardiac: S1/S2, Regular Rhythm and Peripheral Edema (2+ up into the hips); Negative Murmur or Rub
GI: Soft
Neuro: AO x 3
Impression / Plan
-
IMPRESSION/PLAN: 64M with hypertension, hyperlipidemia, type 2 diabetes mellitus, CKD4 (known diabetic nephropathy), and HFpEF who was discharged after a 15kg diuresis and FLU, represented with anasarca.
Kinesiology Professor: Dr. Nuñez
Anasarca: Etiology is multifactorial due to poor diuretic response, HFpEF and progressive kidney disease.
HFpEF, acute on chronic
-He seems to have a lot of right sided symptoms. Therefore, once euvolemic will transition to torsemide for discharge. I do not think once a day dosing is adequate for him, would use twice daily dosing on discharge.
-In conversations with him, I do believe that he is motivated to be compliant with his CHF plan once a good regimen is found. While his kidney failure is progressive, I am a bit encouraged by the fact that we can easily diurese him with IV
diuretics.
-Currently a high risk situation with cardiorenal syndrome, IVY
-continue IV diuresis BID
-close monitoring of labs, tele, weight
-Given multiple hospital recurrent hospitalizations with COVID and influenza, I will update his echocardiogram to ensure no myocardial involvement of these viruses.
-GDMT is limited with his underlying renal disease (no MRA or SGLT2i)
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
-High risk situation, luckily has been responding to IV diuretics.
-Hyperkalemia noted
Anemia: Suspect anemia of chronic disease. No signs or symptoms of blood loss.
HTN: uncontrolled and severely elevated
-improving but still high, I will increase his hydralazine to 100 3 times daily
-continue coreg
NSVT, continue beta-lobo
Hyperkalemia, on [facility] Mondays and Fridays, this should improve with effective diuresis
History of MRSA osteomyelitis
Type 2 diabetes mellitus, per primary
Influenza. Dx 10/04/24 - tx per primary team, seems to be recovering
Data:
Echocardiogram 07/10/2024 LVEF 60 to 65%, mildly enlarged right ventricle, no significant valve disease. Right heart pressures could not be determined..
Data Reviewed
-
EKG: Tracing Personally Visualized and interpreted (EKG tracing shows normal sinus rhythm. Nonspecific T wave flattening.No significant change from prior.)
Radiology: Image Personally Visualized and interpreted (Cephalization, prominent interstitial markings consistent with mild pulmonary edema.)
Labs: Labs Reviewed by me (On admission, labs show elevated BUN and creatinine at 93.5 (discharged on 75/3.0 on 10/06/2024) potassium 5.6 now 5.4 proBNP greater than 2700 ALT 76 AST 26)
[2024-10-17 08:09] LABS: Glucose - Point of Care 94 mg/dl (70-99)
[2024-10-17] MEDS: FLOMAX 0.4 MG PO (08:24)
[2024-10-17] MEDS: NOVOLOG FLEXPEN-LOW RESISTANCE SC ×3 (08:33→18:04)
[2024-10-17] MEDS: WELLBUTRIN SR (12 hour sustained release) 150 MG PO ×2 (09:40→20:56)
[2024-10-17] MEDS: APRESOLINE 25 MG PO (09:41)
[2024-10-17] MEDS: LASIX 80 MG IV ×2 (09:41→15:44)
[2024-10-17] MEDS: LOKELMA 10 GRAM PO (09:41)
[2024-10-17 11:45] LABS: Glucose - Point of Care 138 mg/dl (70-99)
--- NOTE | 2024-10-17 14:38 | CM ---
spoke to pt in [facility] area, he is prev indep, lives with his brother in a 2 story home with 1 step to enter. he has a cane and a walker he uses. he is current with [facility], lopez to resend referral, pt agreeable to this. plan is for dc to
hme when medically stable with [facility].
--- NOTE | 2024-10-17 14:38 | W.PN.HOSP.TC ---
Today's Communication/Plan
-
Monitor vital signs see plan
Continue with IV Lasix
Continue to do bladder scan and straight cath as necessary
Continue tamsulosin
Assessment / Plan
Assessment / Plan
General: No Apparent Distress and Conversant
HEENT: NormoCephalic, Anicteric, Moist mucous membranes and Atraumatic
Respiratory: Clear
Cardiac: S1/S2 and Regular Rhythm
GI: Soft, Non Tender and Non Distended
Musculoskeletal: Edema, Left Lower Extremity and Edema, Right Lower Extremity
Neuro: AO x 3 and Nonfocal/grossly intact
Psych: Calm
Acute on chronic CHF with preserved ejection fraction
Echo with preserved EF
Continue with IV Lasix
Cardiology following
- continue carvedilol
Eventual transition to p.o. torsemide when euvolemic
Urinary retention - h/o bph, ? retention but no prior history of retention
- bladders can protocol for now
- continue tamsulosin; advised patient to follow-up with urology outpatient
UA without UTI
IVY on CKD stage IIIb/IV
Diabetic nephropathy
Continue to monitor renal function
Consult nephrology
Add sodium bicarb, monitor
Hyperkalemia
On Lokelma at home, monitor
NIDDM
- continue 70/30 bid with sliding scale insulin
Nephrotic range proteinuria
Positive proteinase 3 antibodies
Essential hypertension
Continue Coreg, hydralazine
Chronic anemia
Left foot osteomyelitis status post fourth and fifth digit amputation
Anxiety
DVT PPX - heparin sq
Code status - full code
I spent a total of 52 minutes with the patient or on the floor. More than 50% of this time involved counseling and coordination of care.
Anticipated Discharge: > 48 hours
Subjective/Interval History
-
Date of Service: October 17, 2024
Denies pain
Objective Data
-
Labs:
Laboratory Results
10/17/24
05:38
Sodium 139
Potassium 5.4 H
Chloride 112 H
Carbon Dioxide 19 L
BUN 93 H
Creatinine 3.4 H
Glucose 88
Calcium 8.2 L
Vital Signs:
Vital Signs
Temp Pulse Resp BP Pulse Ox
97.5 F 69 18 125/69 89
10/17/24 11:12 10/17/24 11:20 10/17/24 11:12 10/17/24 11:12 10/17/24 11:20
I&O
10/16/24 10/17/24 10/18/24
06:59 06:59 06:59
Intake Total 360 / 360
Output Total 1000 / 1000
Balance -640 / -640
--- NOTE | 2024-10-17 15:17 | PTCARENOTE ---
Pt with minimal output after receiving 80mg IV Lasix. Bladder scanned pt for 500mls. Straight cath'd with some minor resistance. Pt was due to void again by 6 but was just able to urinate 450 mls on his own. Pt sent up to [facility] with all belongings.
[2024-10-17] MEDS: SODIUM BICARBONATE 1300 MG PO ×2 (15:41→22:46)
[2024-10-17] MEDS: FLUSH (NSS) 1 FLUSH IV (15:45)
[2024-10-17] MEDS: APRESOLINE 100 MG PO ×2 (15:53→22:46)
--- NOTE | 2024-10-17 16:08 | PTCARENOTE ---
Received pt from ER via stretcher, accompanied by ER staff. Pt AAO x3, RICKS well, ambulatory to bed, no c/o weakness/dizziness. VSS. Placed on telemetry:NSR. Pt has (+) 2 lower leg/pedal edema. On room air- pulseox 100%, no SOB noted. Abd
large, soft, to start 1800 ab diet with 1440 ml fl restriction. Pt DTV, urinal at bedside, pt instructed to monitor output. Pale; afebrile; small abrasions noted on Rt lower arm/hand. Oriented to [facility], currently resting comfortably . Will
continue to monitor.
--- NOTE | 2024-10-17 16:32 | W.CON.NEPH ---
Consultation
-
Date/Time Consultation Requested: 10/17/2024 9 AM
Date/Time Consultation Performed: 10/17/2024 4 PM
Requesting Provider: Dr. Huber
Performing Provider: Dr. Durant
Reason for Consultation: IVY, edema
Medical History
-
Chief Complaint: volume overload
History of Present Illness:
The patient is a 63-year-old male with chronic kidney disease s/p biopsy confirmed Diabetic nephropathy. He has hypertension which has been controlled on the combinations of his carvedilol and lisinopril. He has longstanding diabetes maintained
chronically on insulin and has microvascular complications including diabetic neuropathy, nephropathy. He was recently in the hospital from September 30 to October 07 with acute kidney injury and volume overload. He was diuresed at that time and his
creatinine had stabilized in the low 3 range. Unfortunately in the week after discharge he rapidly gained all the weight back despite attempts to increase diuretic dosing. Ultimately he had return to the emergency room because of the severe
swelling and was admitted. His creatinine was noted to be elevated again at 3.4 representing acute kidney injury
Past Medical History
DM II, biopsy-proven diabetic nephropathy
Hypertension
CKD 4 (3.0)
Lumbar DDD
Peripheral Neuropathy
Anxiety
Depression
Heart failure preserved ejection fraction
COVID 07/2024
Past Surgical History: Other (Lumbar discectomy with fusion Cholecystectomy Left foot 4th and 5th metatarsal amputation)
Social History
Tobacco: Non-Smoker
Alcohol: None
Drug: None
Family History
no CKD
Family History: Not Pertinent
Allergies / Home Medications
Allergy/AdvReac Type Severity Reaction Status Date / Time
No Known Allergies Allergy Verified 10/16/24 15:33
�Medication �Instructions �Recorded �Confirmed �Type
bupropion HCl 150 mg tablet,12 hr 150 mg PO BID Depression 11/11/23 10/16/24 History
sustained-release (Wellbutrin SR)
lorazepam 1 mg tablet 1 mg PO TID Anxiety 11/11/23 10/16/24 History
gabapentin 300 mg capsule 300 mg PO BID pain 07/09/24 10/16/24 History
insulin lispro protamine-lispro 12 unit (0.12 mL) SC BID Diabetes 09/02/24 10/16/24 Rx
100 unit/mL (75-25) subcutaneous #15 mL
pen (Humalog Mix 75-25 KwikPen)
tamsulosin 0.4 mg capsule 0.4 mg PO DAILY #30 caps 09/02/24 10/16/24 Rx
acetaminophen 500 mg tablet 1,000 mg PO Q6HPRN PRN mild pain 09/30/24 10/16/24 History
(Tylenol Extra Strength)
sodium zirconium cyclosilicate 10 10 g PO MOFR to lower potassium 10/02/24 10/16/24 History
gram oral powder packet (Lokelma) levels
carvedilol 25 mg tablet 25 mg PO BID Essential HTN #60 tabs 10/06/24 10/16/24 Rx
furosemide 40 mg tablet (Lasix) 40 mg PO DAILY Heart 10/06/24 10/16/24 Rx
disease/condition #30 tabs
hydralazine 50 mg tablet 75 mg (1.5 x 50 mg) PO TID Heart 10/06/24 10/16/24 Rx
disease/condition 30 days #135 tabs
prednisone 10 mg tablet 10 mg PO DAILY #8 tabs 10/06/24 10/16/24 Rx
Review of Systems
-
Edema
No chest pain or shortness of breath
All other systems: Negative unless noted
Physical Exam
Vital Signs
Vital Signs
Temp Pulse Resp BP Pulse Ox
97.4 F 73 16 137/95 100
10/17/24 15:55 10/17/24 15:55 10/17/24 15:55 10/17/24 15:55 10/17/24 16:03
Lab Results
WBC 5.1 10^3/uL (4.8-10.8) 10/16/24 15:43
RBC 2.77 10^6/uL (4.70-6.10) L 10/16/24 15:43
Hgb 8.2 g/dL (13.0-18.0) L 10/16/24 15:43
Hct 25.9 % (39.0-52.0) L 10/16/24 15:43
Plt Count 166 10^3/uL (130-400) 10/16/24 15:43
Sodium 139 mmol/L (135-145) 10/17/24 05:38
Potassium 5.4 mmol/L (3.5-5.1) H 10/17/24 05:38
Chloride 112 mmol/L (98-107) H 10/17/24 05:38
Carbon Dioxide 19 mmol/L (22-30) L 10/17/24 05:38
BUN 93 mg/dl (9-20) H 10/17/24 05:38
Creatinine 3.4 mg/dL (0.7-1.3) H 10/17/24 05:38
eGFR 19.47 10/17/24 05:38
Glucose 88 mg/dl (70-99) 10/17/24 05:38
Calcium 8.2 mg/dl (8.4-10.2) L 10/17/24 05:38
Prc-P-Dffajkjxcfc Pept > 94973 pg/ml 10/16/24 15:43
Albumin 3.1 g/dl (3.5-5.0) L 10/16/24 15:43
Laboratory Tests
07/15/24 10/06/24
21:58 06:19
Creatinine 3.0 H
Ur Total Protein 24 Hr 5319.0 H
Physical Exam
Patient is awake alert oriented and in no distress. Mood and affect were pleasant, insight and judgment were good. Pupils are equal round and reactive to light, extraocular movements are intact, sclera were anicteric. Hearing was normal, ears and
nose are intact. Oropharynx was clear. Neck was supple with trachea midline and no thyromegaly. Heart was regular rate and rhythm without rubs. Edema was noted from the feet all the way up to the lower abdomen. Lungs were clear to auscultation
bilaterally and with normal excursion. Abdomen was soft, nontender, with normal active bowel sounds, and no hepatosplenomegaly. Skin was without rash and with normal turgor.
Data Reviewed
-
Radiology: Image Personally Visualized and interpreted (Chest x-ray 10/16/2024 by my reading shows pulmonary edema)
Medical Tests (Nuc Med, Echo etc): Image Personally Visualized and interpreted (EKG 10/16/2024 monitoring shows normal sinus rhythm) and Report Reviewed by me (Echocardiogram 10/17/2024 ejection fraction 60% moderate MR trace TR)
Labs: Labs Reviewed by me
Old Records: Reviewed
Assessment/Plan
-
63-year-old male with chronic kidney disease s/p biopsy confirmed Diabetic nephropathy. Admitted with shortness of breath, anasarca, decompensated heart failure preserved ejection fraction.
impression:
IVY
CKD4, baseline 3.0
Anasarca.
Diabetic nephropathy. Biopsy-proven
Hypertension.
Metabolic acidosis
Hyperkalemia
Anemia of chronic disease.
Plan.
Intravenous Lasix 80 mg twice daily
Continue sodium bicarbonate
Lokelma today, further dosing to be determined
Follow BMP
Oral diuretics after at least 25 pound edema reduction
Agree with more conveniently bioavailable diuretic on conversion such as torsemide
[2024-10-17 16:54] LABS: Glucose - Point of Care 111 mg/dl (70-99)
[2024-10-17] MEDS: NOVOLOG MIX 70/30 FLEXPEN 6 UNITS SC (18:04)
[2024-10-17 21:53] LABS: Glucose - Point of Care 121 mg/dl (70-99)
[2024-10-18] VITALS (7 sets, daily range): BP systolic 112–168; BP diastolic 60–92; BMI 24.9
[2024-10-18] MEDS: HEPARIN 5000 UNITS SC ×4 (00:44→23:24)
[2024-10-18 06:56] LABS: % Basophils 0.5 % (0-2); % Eosinophils 3.7 % (0-6); % Immature Granulocytes 0.5 % (0-0.5); % Lymphocytes 20.1 % (20.5-51.1); % Monocytes 8.5 % (1.7-9.3); % Neutrophils 66.7 % (42.2-75.2); Absolute Eosinophils 0.2 10^3/uL (0-0.7); Absolute Lymphocytes 0.8 10^3/uL (1.2-3.4); Absolute Monocytes 0.3 10^3/uL (0.1-0.6); Absolute Neutrophils 2.7 10^3/uL (1.4-6.5); Hematocrit 24.3 % (39.0-52.0); Hemoglobin 7.9 g/dL (13.0-18.0); Mean Corp Hgb Conc. 32.5 g/dL (33.0-37.0); Mean Corpuscular Hgb 29.7 pg (27.0-31.0); Mean Corpuscular Volume 91.4 fL (80.0-94.0); Mean Platelet Volume 9.4 fL (7.4-10.4); Nucleated Red Blood Cells % 0 % (-); Platelet Count 170 10^3/uL (130-400); Red Blood Cell Count 2.66 10^6/uL (4.70-6.10); Red Cell Dist. Width 19.4 % (11.5-14.5)
[2024-10-18 07:27] LABS: ALT (SGPT) 48 U/L (0-50); AST (SGOT) 13 U/L (17-59); Albumin 2.8 g/dl (3.5-5.0); Alkaline Phosphatase 116 U/L (38-126); Blood Urea Nitrogen 88 mg/dl (9-20); Carbon Dioxide 19 mmol/L (22-30); Chloride 111 mmol/L (98-107); Estimated Creatinine Clearance 25 ml/min; Glucose 109 mg/dl (70-99); Sodium 141 mmol/L (135-145); Total Bilirubin 0.5 mg/dl (0.2-1.3); Total Protein 5.8 g/dl (6.3-8.2); eGFR 18.18
[2024-10-18 07:30] LABS: Glucose - Point of Care 106 mg/dl (70-99)
[2024-10-18] MEDS: NOVOLOG FLEXPEN-LOW RESISTANCE SC ×2 (09:05→11:56)
[2024-10-18] MEDS: ATIVAN 1 MG PO ×3 (09:11→23:22)
[2024-10-18] MEDS: FLOMAX 0.4 MG PO (09:11)
[2024-10-18] MEDS: COREG 25 MG PO ×2 (09:11→20:00)
[2024-10-18] MEDS: APRESOLINE 100 MG PO ×3 (09:11→23:22)
[2024-10-18] MEDS: WELLBUTRIN SR (12 hour sustained release) 150 MG PO ×2 (09:12→20:00)
[2024-10-18] MEDS: NEURONTIN 300 MG PO ×2 (09:12→20:00)
[2024-10-18] MEDS: SODIUM BICARBONATE 1300 MG PO ×3 (09:12→23:23)
[2024-10-18] MEDS: NOVOLOG MIX 70/30 FLEXPEN 6 UNITS SC ×2 (09:12→16:53)
[2024-10-18] MEDS: LASIX 80 MG IV ×2 (09:25→16:55)
--- NOTE | 2024-10-18 11:39 | W.PN.CD ---
Today's Communication / Plan
-
-Continue Lasix 80 mg IV BID; Nephrology following.
-Echocardiogram yesterday revealed an LVEF of 60-65% and mild to moderate mitral regurgitation; no significant change compared to previous.
Impression / Plan
-
IMPRESSION/PLAN: 64M with hypertension, hyperlipidemia, type 2 diabetes mellitus, CKD4 (known diabetic nephropathy), and HFpEF who was discharged after a 15kg diuresis and FLU, represented with anasarca.
Clinical Team Manager: Dr. Nuñez
Anasarca: Etiology is multifactorial due to poor diuretic response, HFpEF and progressive kidney disease.
HFpEF, acute on chronic
-He seems to have a lot of right sided symptoms; once euvolemic would transition to torsemide twice daily on discharge.
-Continue Lasix 80 mg IV BID; Nephrology following.
-Echocardiogram yesterday revealed an LVEF of 60-65% and mild to moderate mitral regurgitation; no significant change compared to previous.
-GDMT is limited with his underlying renal disease (no MRA or SGLT2i).
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
-Plan as above; Nephrology following.
-Hyperkalemia resolved.
Anemia: Suspect anemia of chronic disease. No signs or symptoms of blood loss.
HTN:
-Hydralazine increased to 100 TID.
-continue coreg 25 mg BID.
NSVT, continue beta-lobo
Hyperkalemia, on [facility] Mondays and Fridays - improved with effective diuresis
History of MRSA osteomyelitis
Type 2 diabetes mellitus, per primary
Influenza. Dx 10/04/24 - tx per primary team, seems to be recovering
Data:
Echocardiogram 07/10/2024 LVEF 60 to 65%, mildly enlarged right ventricle, no significant valve disease. Right heart pressures could not be determined..
Physical Exam
Vital Signs/Labs
Vital Signs
Temp Pulse Resp BP Pulse Ox
97.8 F 74 15 168/92 98
10/18/24 11:20 10/18/24 11:20 10/18/24 11:20 10/18/24 11:20 10/18/24 11:20
10/17/24 10/18/24 10/19/24
06:59 06:59 06:59
Actual Weight 99 kg 90.52 kg
10/18/24 06:30
10/18/24 06:30
Magnesium 2.4 mg/dl (1.6-2.3) H 10/17/24 05:38
10/16/24
15:43
Dzi-Z-Gbqekzfnhxr Pept > 09901
Physical Exam
Constitutional: No acute distress and Comfortable
EENT: Anicteric
Cardiovascular: Rhythm & rate is regular, Systolic murmur absent, Pedal edema present (2+) and S1S2 is normal
Respiratory: Respiratory effort normal and Crackles Present
GI: Soft (Warm, dry, intact)
Neuro/Psych: AO x 3
Other: Skin (Warm, dry, intact)
Data Reviewed
-
Date of Service: October 18, 2024
EKG: Tracing Personally Visualized and interpreted (Telemetry: Sinus rhythm)
Labs: Labs Reviewed by me
[2024-10-18 11:47] LABS: Glucose - Point of Care 122 mg/dl (70-99)
--- NOTE | 2024-10-18 12:17 | W.PN.HOSP.TC ---
Today's Communication/Plan
-
Monitor vital signs see plan
Continue with IV diuresis
Sodium bicarb
Monitor renal function
Continue with hydralazine, Coreg
Assessment / Plan
Assessment / Plan
General: No Apparent Distress and Conversant
HEENT: NormoCephalic, Anicteric, Moist mucous membranes and Atraumatic
Respiratory: Clear
Cardiac: S1/S2 and Regular Rhythm
GI: Soft, Non Tender and Non Distended
Musculoskeletal: Edema, Left Lower Extremity and Edema, Right Lower Extremity
Neuro: AO x 3 and Nonfocal/grossly intact
Psych: Calm
Acute on chronic CHF with preserved ejection fraction
Echo with preserved EF
Continue with IV Lasix
Cardiology following
- continue carvedilol
Eventual transition to p.o. torsemide when euvolemic
Hydralazine increased to 100 mg 3 times daily, continue with Coreg 25 twice daily. Remains hypertensive then likely can go up on Coreg
Urinary retention - h/o bph, ? retention but no prior history of retention
- bladders can protocol for now
- continue tamsulosin; advised patient to follow-up with urology outpatient
UA without UTI
Patient is currently not retaining anymore. Continue to monitor
IYV on CKD stage IIIb/IV
Diabetic nephropathy
Continue to monitor renal function
Nephrology following
Add sodium bicarb, monitor
Hyperkalemia
On Lokelma at home, monitor
NIDDM
- continue 70/30 bid with sliding scale insulin
Nephrotic range proteinuria
Positive proteinase 3 antibodies
Essential hypertension
Continue Coreg, hydralazine
Chronic anemia
Left foot osteomyelitis status post fourth and fifth digit amputation
Anxiety
DVT PPX - heparin sq
Code status - full code
I spent a total of 51 minutes with the patient or on the floor. More than 50% of this time involved counseling and coordination of care.
Anticipated Discharge: > 48 hours
Subjective/Interval History
-
Date of Service: October 18, 2024
Denies pain
Objective Data
-
Labs:
Laboratory Results
10/18/24
06:30
WBC 4.0 L
Hgb 7.9 L
Hct 24.3 L
Plt Count 170
Sodium 141
Potassium 5.0
Chloride 111 H
Carbon Dioxide 19 L
BUN 88 H
Creatinine 3.6 H
Glucose 109 H
Calcium 8.0 L
Total Bilirubin 0.5
AST 13 L
ALT 48
Alkaline Phosphatase 116
Vital Signs:
Vital Signs
Temp Pulse Resp BP Pulse Ox
97.8 F 74 15 168/92 98
10/18/24 11:20 10/18/24 11:20 10/18/24 11:20 10/18/24 11:20 10/18/24 11:20
I&O
10/17/24 10/18/24 10/19/24
06:59 06:59 06:59
Intake Total 720 / 720
Output Total 2774 / 277
Balance -2054 /
[2024-10-18 12:31] LABS: Glycohemoglobin (HgbA1c) 6.7 % (4.0-5.6)
[2024-10-18 16:43] LABS: Glucose - Point of Care 161 mg/dl (70-99)
--- NOTE | 2024-10-18 16:53 | W.PN.NEPH.PH ---
Today's Communication / Plan
-
cont lasix
follow bladder scan
Assessment/Plan
-
63-year-old male with chronic kidney disease s/p biopsy confirmed Diabetic nephropathy. Admitted with shortness of breath, anasarca, decompensated heart failure preserved ejection fraction.
impression:
GABBI
CKD4, baseline 3.0
Anasarca.
Diabetic nephropathy. Biopsy-proven
Hypertension.
Metabolic acidosis
Hyperkalemia
Anemia of chronic disease.
Plan.
GABBI-cr up with diuretics
improving edema and wt with Intravenous Lasix 80 mg twice daily
stable met acidosis Continue sodium bicarbonate
monitor k with low k diet, no LOkelma
follow bladder scan s/p SC on 10/17-cont flomax
BP are high today, expect to improve with diuresis, cotn coreg, hydralzine
Follow BMP
Oral diuretics after at least 25 pound edema reduction
Agree with more conveniently bioavailable diuretic on conversion such as torsemide
no emergent need of HD
-
-
Date of Service: October 18, 2024
CC / HPI / ROS
-
Chief Complaint:
Gbabi with CKD
History of Present Illness:
cr is up at 3.6
wt decreasing, SC Once on 10/17
BP high
hb low 7.9
Review of Systems:
no cp, improving sob
no dysuria
no n/v
Labs
-
Labs:
WBC 4.0 10^3/uL (4.8-10.8) L 10/18/24 06:30
RBC 2.66 10^6/uL (4.70-6.10) L 10/18/24 06:30
Hgb 7.9 g/dL (13.0-18.0) L 10/18/24 06:30
Hct 24.3 % (39.0-52.0) L 10/18/24 06:30
Plt Count 170 10^3/uL (130-400) 10/18/24 06:30
Sodium 141 mmol/L (135-145) 10/18/24 06:30
Potassium 5.0 mmol/L (3.5-5.1) 10/18/24 06:30
Chloride 111 mmol/L (98-107) H 10/18/24 06:30
Carbon Dioxide 19 mmol/L (22-30) L 10/18/24 06:30
BUN 88 mg/dl (9-20) H 10/18/24 06:30
Creatinine 3.6 mg/dL (0.7-1.3) H 10/18/24 06:30
eGFR 18.18 10/18/24 06:30
Glucose 109 mg/dl (70-99) H 10/18/24 06:30
Calcium 8.0 mg/dl (8.4-10.2) L 10/18/24 06:30
Vwi-P-Onbtxixvxhp Pept > 64889 pg/ml 10/16/24 15:43
Albumin 2.8 g/dl (3.5-5.0) L 10/18/24 06:30
Physical Exam
-
Vital Signs:
Vital Signs
Temp Pulse Resp BP Pulse Ox
97.4 F 72 16 154/76 96
10/18/24 15:45 10/18/24 15:45 10/18/24 15:45 10/18/24 15:45 10/18/24 15:45
Cardiovascular:: Regular rate and rhythm
Respiratory:: Bilateral: Rales (bases)
Lung Excursion:: Normal
Abdomen:: Nontender and Soft
Bowel Sounds:: Normal
Extremity Edema:: +2: Bilateral:
[place] Catheter: No
[2024-10-18] MEDS: NOVOLOG FLEXPEN-LOW RESISTANCE 1 UNITS SC (17:28)
[2024-10-18 21:54] LABS: Glucose - Point of Care 124 mg/dl (70-99)
[2024-10-19 03:52] VITALS: BP 159/79
[2024-10-19 06:00] VITALS: BMI 24.2
[2024-10-19 07:20] VITALS: BP 187/93
[2024-10-19 07:21] LABS: % Basophils 1.5 % (0-2); % Eosinophils 4.4 % (0-6); % Immature Granulocytes 0.6 % (0-0.5); % Lymphocytes 20.4 % (20.5-51.1); % Monocytes 9.9 % (1.7-9.3); % Neutrophils 63.2 % (42.2-75.2); Absolute Basophils 0.1 10^3/uL (0-0.2); Absolute Eosinophils 0.2 10^3/uL (0-0.7); Absolute Lymphocytes 0.7 10^3/uL (1.2-3.4); Absolute Monocytes 0.3 10^3/uL (0.1-0.6); Absolute Neutrophils 2.2 10^3/uL (1.4-6.5); Hemoglobin 8.4 g/dL (13.0-18.0); Mean Corp Hgb Conc. 32.3 g/dL (33.0-37.0); Mean Corpuscular Hgb 29.3 pg (27.0-31.0); Mean Corpuscular Volume 90.6 fL (80.0-94.0); Mean Platelet Volume 9.5 fL (7.4-10.4); Nucleated Red Blood Cells % 0 % (-); Platelet Count 163 10^3/uL (130-400); Red Blood Cell Count 2.87 10^6/uL (4.70-6.10); Red Cell Dist. Width 19.2 % (11.5-14.5); White Blood Cell Count 3.4 10^3/uL (4.8-10.8)
[2024-10-19 07:28] LABS: Glucose - Point of Care 112 mg/dl (70-99)
[2024-10-19] MEDS: NOVOLOG FLEXPEN-LOW RESISTANCE SC ×3 (07:33→16:28)
[2024-10-19 07:49] LABS: ALT (SGPT) 39 U/L (0-50); AST (SGOT) 13 U/L (17-59); Albumin 2.8 g/dl (3.5-5.0); Alkaline Phosphatase 119 U/L (38-126); Blood Urea Nitrogen 84 mg/dl (9-20); Calcium 8.3 mg/dl (8.4-10.2); Carbon Dioxide 22 mmol/L (22-30); Chloride 107 mmol/L (98-107); Estimated Creatinine Clearance 26 ml/min; Glucose 102 mg/dl (70-99); Potassium 4.8 mmol/L (3.5-5.1); Sodium 139 mmol/L (135-145); Total Bilirubin 0.5 mg/dl (0.2-1.3); Total Protein 5.4 g/dl (6.3-8.2); eGFR 18.81
[2024-10-19] MEDS: WELLBUTRIN SR (12 hour sustained release) 150 MG PO ×2 (08:21→20:46)
[2024-10-19] MEDS: SODIUM BICARBONATE 1300 MG PO ×3 (08:21→23:04)
[2024-10-19] MEDS: LASIX 80 MG IV ×2 (08:21→16:28)
[2024-10-19] MEDS: NEURONTIN 300 MG PO ×2 (08:21→20:46)
[2024-10-19] MEDS: COREG 25 MG PO ×2 (08:21→20:45)
[2024-10-19] MEDS: HEPARIN 5000 UNITS SC ×3 (08:21→23:08)
[2024-10-19] MEDS: ATIVAN 1 MG PO ×3 (08:21→23:04)
[2024-10-19] MEDS: FLOMAX 0.4 MG PO (08:21)
[2024-10-19] MEDS: APRESOLINE 100 MG PO ×3 (08:21→23:03)
[2024-10-19] MEDS: NOVOLOG MIX 70/30 FLEXPEN 6 UNITS SC ×2 (08:22→16:31)
[2024-10-19 11:04] VITALS: BP 166/85
[2024-10-19 11:38] LABS: Glucose - Point of Care 117 mg/dl (70-99)
--- NOTE | 2024-10-19 11:47 | W.PN.CD ---
Today's Communication / Plan
-
-Continue Lasix 80 mg IV BID; Nephrology is following--creatinine is relatively stable.
Impression / Plan
-
IMPRESSION/PLAN: 64M with hypertension, hyperlipidemia, type 2 diabetes mellitus, CKD4 (known diabetic nephropathy), and HFpEF who was discharged after a 15kg diuresis and FLU, represented with anasarca.
Accident Report Clerk: Dr. Nuñez
Anasarca: Etiology is multifactorial due to poor diuretic response, HFpEF and progressive kidney disease.
HFpEF, acute on chronic
-He seems to have a lot of right sided symptoms; once euvolemic would transition to torsemide twice daily on discharge.
-Continue Lasix 80 mg IV BID; Nephrology is following--creatinine is relatively stable.
-Echocardiogram revealed an LVEF of 60-65% and mild to moderate mitral regurgitation; no significant change compared to previous.
-GDMT is limited with his underlying renal disease (no MRA or SGLT2i).
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
-Plan as above; Nephrology following.
-Hyperkalemia resolved.
Anemia: Suspect anemia of chronic disease. No signs or symptoms of blood loss.
HTN:
-Continue hydralazine 100 TID.
-Continue coreg 25 mg BID.
NSVT:
-Stable; continue Coreg.
Hyperkalemia, on [facility] Mondays and Fridays - improved with effective diuresis
History of MRSA osteomyelitis
Type 2 diabetes mellitus, per primary
Influenza. Dx 10/04/24 - tx per primary team, seems to be recovering
Data:
Echocardiogram 07/10/2024 LVEF 60 to 65%, mildly enlarged right ventricle, no significant valve disease. Right heart pressures could not be determined..
Physical Exam
Vital Signs/Labs
Vital Signs
Temp Pulse Resp BP Pulse Ox
97.4 F 73 20 166/85 96
10/19/24 11:04 10/19/24 11:04 10/19/24 11:04 10/19/24 11:04 10/19/24 11:04
10/18/24 10/19/24 10/20/24
06:59 06:59 06:59
Actual Weight 90.52 kg 87.798 kg
10/19/24 05:55
10/19/24 05:55
Magnesium 2.4 mg/dl (1.6-2.3) H 10/17/24 05:38
10/16/24
15:43
Nqx-U-Ymevvtwvcwv Pept > 31723
Physical Exam
Constitutional: No acute distress and Comfortable
EENT: Anicteric
Cardiovascular: Rhythm & rate is regular, Systolic murmur absent, Pedal edema present (2-3+) and S1S2 is normal
Respiratory: Respiratory effort normal and Lungs clear to auscul.
GI: Soft
Neuro/Psych: AO x 3
Other: Skin (Warm, dry, intact)
Data Reviewed
-
Date of Service: October 19, 2024
EKG: Tracing Personally Visualized and interpreted (Telemetry: Sinus rhythm)
Labs: Labs Reviewed by me
--- NOTE | 2024-10-19 12:18 | W.PN.HOSP.TC ---
Today's Communication/Plan
-
Monitor vital signs and see plan
Continue with IV diuresis
Monitor renal function
Continue hydralazine, Coreg
Assessment / Plan
Assessment / Plan
General: No Apparent Distress and Conversant
HEENT: NormoCephalic, Anicteric, Moist mucous membranes and Atraumatic
Respiratory: Clear
Cardiac: S1/S2 and Regular Rhythm
GI: Soft, Non Tender and Non Distended
Musculoskeletal: Edema, Left Lower Extremity and Edema, Right Lower Extremity
Neuro: AO x 3 and Nonfocal/grossly intact
Psych: Calm
Acute on chronic CHF with preserved ejection fraction
Echo with preserved EF
Continue with IV Lasix
Cardiology following
- continue carvedilol
Eventual transition to p.o. torsemide when euvolemic
Hydralazine increased to 100 mg 3 times daily, continue with Coreg 25 twice daily. if remains hypertensive then likely can go up on Coreg
Urinary retention - h/o bph, ? retention but no prior history of retention
Resolved
- bladders can protocol for now
- continue tamsulosin; advised patient to follow-up with urology outpatient
UA without UTI
Patient is currently not retaining anymore. Continue to monitor
IVY on CKD stage IIIb/IV
Diabetic nephropathy
Continue to monitor renal function, creatinine 3.5 today
Nephrology following
Added sodium bicarb, monitor. if Bicarb stable by tomorrow then DC further bicarb
Hyperkalemia
On Lokelma at home, monitor
NIDDM
- continue 70/30 bid with sliding scale insulin
Nephrotic range proteinuria
Positive proteinase 3 antibodies
Essential hypertension
Continue Coreg, hydralazine
Chronic anemia
Left foot osteomyelitis status post fourth and fifth digit amputation
Anxiety
DVT PPX - heparin sq
Code status - full code
I spent a total of 52 minutes with the patient or on the floor. More than 50% of this time involved counseling and coordination of care.
Anticipated Discharge: 24 - 48 hours
Subjective/Interval History
-
Date of Service: October 19, 2024
Denies pain
Objective Data
-
Labs:
Laboratory Results
10/19/24
05:55
WBC 3.4 L
Hgb 8.4 L
Hct 26.0 L
Plt Count 163
Sodium 139
Potassium 4.8
Chloride 107
Carbon Dioxide 22
BUN 84 H
Creatinine 3.5 H
Glucose 102 H
Calcium 8.3 L
Total Bilirubin 0.5
AST 13 L
ALT 39
Alkaline Phosphatase 119
Vital Signs:
Vital Signs
Temp Pulse Resp BP Pulse Ox
97.4 F 73 20 166/85 96
10/19/24 11:04 10/19/24 11:04 10/19/24 11:04 10/19/24 11:04 10/19/24 11:04
I&O
10/18/24 10/19/24 10/20/24
06:59 06:59 06:59
Intake Total 720 / 720 1740 / 1740 120 / 120
Output Total 2775 / 2775 2775 / 2775 1200 / 1200
Balance -2055 / -2055 -1035 / -1035 -1080 / -1080
[2024-10-19 15:25] VITALS: BP 173/85
[2024-10-19 16:27] LABS: Glucose - Point of Care 124 mg/dl (70-99)
--- NOTE | 2024-10-19 16:51 | W.PN.NEPH.PH ---
Today's Communication / Plan
-
cont diuresis
Assessment/Plan
-
63-year-old male with chronic kidney disease s/p biopsy confirmed Diabetic nephropathy. Admitted with shortness of breath, anasarca, decompensated heart failure preserved ejection fraction.
impression:
GABBI
CKD4, baseline 3.0
Anasarca.
Diabetic nephropathy. Biopsy-proven
Hypertension.
Metabolic acidosis
Hyperkalemia
Anemia of chronic disease.
Plan.
GABBI-cr high at 3.5 with diuretics
improving edema and wt with Intravenous Lasix 80 mg twice daily, possible DW 80kg
improving met acidosis Continue sodium bicarbonate
monitor k with low k diet
follow bladder scan s/p SC on 10/17-cont flomax
BP are high today, expect to improve with diuresis, cotn coreg, hydralzine
may consider adding CCB if still high, off ACEI
Follow BMP
Agree with more conveniently bioavailable diuretic on conversion such as torsemide
no emergent need of HD
Long discussion with the patient today regarding possible future need of dialysis especially he had recurrent admissions with volume overloaded and progressive renal dysfunction. he will need to be referred to vascular for possible fistula creation
too. Unlikely he'll be a candidate for PD with current clinical status.
-
-
Date of Service: October 19, 2024
CC / HPI / ROS
-
Chief Complaint:
Gabbi with CKD
History of Present Illness:
cr is up at 3.5
wt decreasing, SC Once on 10/17
BP high
hb up at 8.4
Review of Systems:
no cp, improving sob
no dysuria
no n/v
Labs
-
Labs:
WBC 3.4 10^3/uL (4.8-10.8) L 10/19/24 05:55
RBC 2.87 10^6/uL (4.70-6.10) L 10/19/24 05:55
Hgb 8.4 g/dL (13.0-18.0) L 10/19/24 05:55
Hct 26.0 % (39.0-52.0) L 10/19/24 05:55
Plt Count 163 10^3/uL (130-400) 10/19/24 05:55
Sodium 139 mmol/L (135-145) 10/19/24 05:55
Potassium 4.8 mmol/L (3.5-5.1) 10/19/24 05:55
Chloride 107 mmol/L (98-107) 10/19/24 05:55
Carbon Dioxide 22 mmol/L (22-30) 10/19/24 05:55
BUN 84 mg/dl (9-20) H 10/19/24 05:55
Creatinine 3.5 mg/dL (0.7-1.3) H 10/19/24 05:55
eGFR 18.81 10/19/24 05:55
Glucose 102 mg/dl (70-99) H 10/19/24 05:55
Calcium 8.3 mg/dl (8.4-10.2) L 10/19/24 05:55
Pmz-D-Bbvjbibitih Pept > 61008 pg/ml 10/16/24 15:43
Albumin 2.8 g/dl (3.5-5.0) L 10/19/24 05:55
Physical Exam
-
Vital Signs:
Vital Signs
Temp Pulse Resp BP Pulse Ox
97.4 F 73 20 166/85 96
10/19/24 11:04 10/19/24 11:04 10/19/24 11:04 10/19/24 11:04 10/19/24 11:04
Cardiovascular:: Regular rate and rhythm
Respiratory:: Bilateral: Rales (bases)
Lung Excursion:: Normal
Abdomen:: Nontender and Soft
Bowel Sounds:: Normal
Extremity Edema:: +2: Bilateral:
[place] Catheter: No
[2024-10-19 19:55] VITALS: BP 173/88
[2024-10-19 20:18] LABS: Glucose - Point of Care 50 mg/dl (70-99)
[2024-10-19 20:59] LABS: Glucose - Point of Care 90 mg/dl (70-99)
[2024-10-19 23:18] LABS: Glucose - Point of Care 122 mg/dl (70-99)
[2024-10-19 23:55] VITALS: BP 172/91
[2024-10-20] VITALS (8 sets, daily range): BP systolic 101–171; BP diastolic 53–86; BMI 23.6
[2024-10-20 01:01] LABS: Glucose - Point of Care 141 mg/dl (70-99)
[2024-10-20 03:20] LABS: Glucose - Point of Care 142 mg/dl (70-99)
--- NOTE | 2024-10-20 06:29 | PTCARENOTE ---
Pt aaox3 able to make his needs known.LAUNDRY SUPERVISOR aware of pt BSL & hypoglycemia protocol followed.LAUNDRY SUPERVISOR was made aware of pt BP range & day team aware of it.Pt was provided with scheduled meds.Pt asymptomatic otherwise.Plan of care continued.No new orders at
this time.
[2024-10-20 07:27] LABS: Glucose - Point of Care 116 mg/dl (70-99)
[2024-10-20 07:27] LABS: % Basophils 0.8 % (0-2); % Eosinophils 3.6 % (0-6); % Immature Granulocytes 0.6 % (0-0.5); % Lymphocytes 21.4 % (20.5-51.1); % Monocytes 10.3 % (1.7-9.3); % Neutrophils 63.3 % (42.2-75.2); Absolute Eosinophils 0.1 10^3/uL (0-0.7); Absolute Lymphocytes 0.8 10^3/uL (1.2-3.4); Absolute Monocytes 0.4 10^3/uL (0.1-0.6); Absolute Neutrophils 2.3 10^3/uL (1.4-6.5); Hemoglobin 8.6 g/dL (13.0-18.0); Mean Corp Hgb Conc. 31.9 g/dL (33.0-37.0); Mean Corpuscular Hgb 28.9 pg (27.0-31.0); Mean Corpuscular Volume 90.6 fL (80.0-94.0); Mean Platelet Volume 8.9 fL (7.4-10.4); Nucleated Red Blood Cells % 0 % (-); Platelet Count 161 10^3/uL (130-400); Red Blood Cell Count 2.98 10^6/uL (4.70-6.10); Red Cell Dist. Width 18.9 % (11.5-14.5); White Blood Cell Count 3.6 10^3/uL (4.8-10.8)
[2024-10-20] MEDS: NOVOLOG FLEXPEN-LOW RESISTANCE SC ×2 (07:40→11:34)
[2024-10-20] MEDS: ATIVAN 1 MG PO ×3 (07:40→22:17)
[2024-10-20] MEDS: SODIUM BICARBONATE 1300 MG PO ×3 (07:41→22:17)
[2024-10-20] MEDS: HEPARIN 5000 UNITS SC ×2 (07:41→16:19)
[2024-10-20] MEDS: FLOMAX 0.4 MG PO (07:41)
[2024-10-20] MEDS: NEURONTIN 300 MG PO ×2 (07:41→20:39)
[2024-10-20] MEDS: WELLBUTRIN SR (12 hour sustained release) 150 MG PO ×2 (07:41→20:39)
[2024-10-20] MEDS: LASIX 80 MG IV ×2 (07:45→16:18)
[2024-10-20] MEDS: NOVOLOG MIX 70/30 FLEXPEN 6 UNITS SC ×2 (07:47→16:40)
[2024-10-20] MEDS: APRESOLINE 100 MG PO ×2 (07:47→22:17)
[2024-10-20] MEDS: COREG 25 MG PO ×2 (07:47→20:38)
[2024-10-20 07:53] LABS: ALT (SGPT) 29 U/L (0-50); AST (SGOT) 12 U/L (17-59); Alkaline Phosphatase 100 U/L (38-126); Blood Urea Nitrogen 81 mg/dl (9-20); Calcium 7.9 mg/dl (8.4-10.2); Carbon Dioxide 26 mmol/L (22-30); Chloride 105 mmol/L (98-107); Estimated Creatinine Clearance 25 ml/min; Glucose 105 mg/dl (70-99); Potassium 4.6 mmol/L (3.5-5.1); Sodium 140 mmol/L (135-145); Total Bilirubin 0.4 mg/dl (0.2-1.3); eGFR 18.18
--- NOTE | 2024-10-20 07:53 | W.PN.CD ---
Today's Communication / Plan
-
continue IV lasix
Impression / Plan
-
IMPRESSION/PLAN: 64M with hypertension, hyperlipidemia, type 2 diabetes mellitus, CKD4 (known diabetic nephropathy), and HFpEF who was discharged after a 15kg diuresis and FLU, represented with anasarca.
Vegetable Loader Machine Operator: Dr. Nuñez
Anasarca: Etiology is multifactorial due to poor diuretic response, HFpEF and progressive kidney disease.
HFpEF, acute on chronic. High risk with CKD4.
-Echocardiogram 10/17/24: revealed an LVEF of 60-65% and mild to moderate mitral regurgitation; no significant change compared to previous.
-GDMT is limited with his underlying renal disease (no MRA or SGLT2i).
-once euvolemic would transition to torsemide 40mg twice daily on discharge.
-review of records suggests dry weight approx 80kg
-Continue Lasix 80 mg IV BID; close monitoring of labs, weight, tele
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
-Plan as above; Nephrology following.
-Hyperkalemia resolved.
Anemia: Suspect anemia of chronic disease. No signs or symptoms of blood loss.
HTN:
-Continue hydralazine 100 TID.
-Continue coreg 25 mg BID.
NSVT:
-Stable; continue Coreg.
Hyperkalemia, on [facility] Mondays and Fridays - improved with effective diuresis
History of MRSA osteomyelitis
Type 2 diabetes mellitus, per primary
Influenza. Dx 10/04/24 - tx per primary team, seems to be recovering
Physical Exam
Vital Signs/Labs
Vital Signs
Temp Pulse Resp BP Pulse Ox
97.9 F 85 18 163/79 96
10/20/24 03:30 10/20/24 03:30 10/20/24 03:30 10/20/24 03:30 10/20/24 03:30
0210/20/24 10/21/24
06:59 06:59 06:59
Actual Weight 87.798 kg 85.729 kg
10/20/24 07:01
Magnesium 2.4 mg/dl (1.6-2.3) H 10/17/24 05:38
10/16/24
15:43
Ars-I-Pgqtadbyilx Pept > 32121
Physical Exam
Constitutional: No acute distress and Comfortable
EENT: Moist mucous membranes
Cardiovascular: Rhythm & rate is regular, Systolic murmur absent, Pedal edema present and JVD present
Respiratory: Respiratory effort normal and Lungs clear to auscul.
Neuro/Psych: AO x 3
Data Reviewed
-
Date of Service: October 20, 2024
EKG: Other (Tele: SR 80s)
Labs: Labs Reviewed by me
[2024-10-20] MEDS: PROCARDIA XL (EXTENDED RELEASE) 30 MG PO (08:49)
--- NOTE | 2024-10-20 09:11 | W.PN.HOSP.TC ---
Today's Communication/Plan
-
continue IV diuretics
add CCB to BP regimen
Assessment / Plan
Assessment / Plan
General: No Apparent Distress and Conversant
HEENT: NormoCephalic, Anicteric, Moist mucous membranes and Atraumatic
Respiratory: Clear
Cardiac: S1/S2 and Regular Rhythm
GI: Soft, Non Tender and Non Distended
Musculoskeletal: Edema, Left Lower Extremity and Edema, Right Lower Extremity
Neuro: AO x 3 and Nonfocal/grossly intact
Psych: Calm
Acute on chronic CHF with preserved ejection fraction
Echo with preserved EF
Continue with IV Lasix - requires intensive monitoring of I/Os, weights, lytes
Cardiology following
Eventual transition to p.o. torsemide when euvolemic and also prn Metolazone is an option as well
continue Hydralazine 100 mg 3 times daily, continue with Coreg 25 twice daily. add Nifedipine today discussed with Cardiology
Urinary retention - h/o bph, ? retention but no prior history of retention
Resolved
- bladders can protocol for now
- continue tamsulosin; advised patient to follow-up with urology outpatient
UA without UTI
Patient is currently not retaining anymore. Continue to monitor
IVY on CKD stage IIIb/IV (baseline low 3s)
Diabetic nephropathy
Continue to monitor renal function, creatinine 3.6 today
Nephrology following
continue sodium bicarb, monitor. Dosing per Nephrology
Hyperkalemia
On Lokelma at home, monitor off Lokelma inpatient as aggressive diuresis is keeping K stable
NIDDM
- continue 70/30 bid with sliding scale insulin
Nephrotic range proteinuria
Positive proteinase 3 antibodies
Essential hypertension
Continue Coreg, hydralazine
Chronic anemia
Left foot osteomyelitis status post fourth and fifth digit amputation
Anxiety
DVT PPX - heparin sq
Code status - full code
Anticipated Discharge: > 48 hours
Subjective/Interval History
-
Date of Service: October 20, 2024
denies any new complaints at present
weight is down to 85.7 kg from 87.7 kg
Objective Data
-
Labs:
Laboratory Results
10/20/24
07:01
WBC 3.6 L
Hgb 8.6 L
Hct 27.0 L
Plt Count 161
Sodium 140
Potassium 4.6
Chloride 105
Carbon Dioxide 26
BUN 81 H
Creatinine 3.6 H
Glucose 105 H
Calcium 7.9 L
Total Bilirubin 0.4
AST 12 L
ALT 29
Alkaline Phosphatase 100
Vital Signs:
Vital Signs
Temp Pulse Resp BP Pulse Ox
97.8 F 76 16 171/86 95
10/20/24 07:30 10/20/24 08:49 10/20/24 07:30 10/20/24 08:49 10/20/24 07:30
I&O
10/19/24 10/20/24 10/21/24
06:59 06:59 06:59
Intake Total 1740 / 1740 898 / 898
Output Total 2775 / 2775 5650 / 5650
Balance -1035 / -1035 -4752 / -4752
Data Reviewed
-
Total Time Spent with Patient (in minutes): 51
Labs: Labs Reviewed by me
[2024-10-20 11:31] LABS: Glucose - Point of Care 104 mg/dl (70-99)
--- NOTE | 2024-10-20 15:13 | W.PN.NEPH.PH ---
Today's Communication / Plan
-
Maintain IV diuresis
Follow BMP
Assessment/Plan
-
63-year-old male with chronic kidney disease s/p biopsy confirmed Diabetic nephropathy. Admitted with shortness of breath, anasarca, decompensated heart failure preserved ejection fraction.
impression:
GABBI
CKD4, baseline 3.0
Anasarca.
Diabetic nephropathy. Biopsy-proven
Hypertension.
Metabolic acidosis
Hyperkalemia
Anemia of chronic disease.
Plan.
GABBI-cr high at 3.6 with diuretics
Weights down grossly not oliguric greater than 4 L
improving edema and wt with Intravenous Lasix 80 mg twice daily, possible DW 80kg
improving met acidosis Continue sodium bicarbonate
monitor k with low k diet
follow bladder scan s/p SC on 10/17-cont flomax
BP are high today, expect to improve with diuresis, continue with coreg, hydralazine
may consider adding CCB if still high, off ACEI
Follow BMP
Agree with more conveniently bioavailable diuretic on conversion such as torsemide 40 mg twice daily at discharge
no emergent need of HD
Long discussion with the patient today regarding possible future need of dialysis especially he had recurrent admissions with volume overloaded and progressive renal dysfunction. he will need to be referred to vascular for possible fistula creation
too. Unlikely he'll be a candidate for PD with current clinical status.
-
-
Date of Service: October 20, 2024
CC / HPI / ROS
-
Chief Complaint:
Gabbi with CKD
History of Present Illness:
cr is up at 3.6
wt decreasing, SC Once on 10/17
BP high
Review of Systems:
no cp, improving sob
no dysuria
no n/v
Grossly nonoliguric in excess of 4 L
Weights down
Labs
-
Labs:
WBC 3.6 10^3/uL (4.8-10.8) L 10/20/24 07:01
RBC 2.98 10^6/uL (4.70-6.10) L 10/20/24 07:01
Hgb 8.6 g/dL (13.0-18.0) L 10/20/24 07:01
Hct 27.0 % (39.0-52.0) L 10/20/24 07:01
Plt Count 161 10^3/uL (130-400) 10/20/24 07:01
Sodium 140 mmol/L (135-145) 10/20/24 07:01
Potassium 4.6 mmol/L (3.5-5.1) 10/20/24 07:01
Chloride 105 mmol/L (98-107) 10/20/24 07:01
Carbon Dioxide 26 mmol/L (22-30) 10/20/24 07:01
BUN 81 mg/dl (9-20) H 10/20/24 07:01
Creatinine 3.6 mg/dL (0.7-1.3) H 10/20/24 07:01
eGFR 18.18 10/20/24 07:01
Glucose 105 mg/dl (70-99) H 10/20/24 07:01
Calcium 7.9 mg/dl (8.4-10.2) L 10/20/24 07:01
Sed-U-Xxfgypwhlup Pept > 48573 pg/ml 10/16/24 15:43
Albumin 3.0 g/dl (3.5-5.0) L 10/20/24 07:01
Physical Exam
-
Vital Signs:
Vital Signs
Temp Pulse Resp BP Pulse Ox
97.5 F 72 16 128/63 98
10/20/24 11:20 10/20/24 11:20 10/20/24 11:20 10/20/24 11:20 10/20/24 11:20
Cardiovascular:: Regular rate and rhythm
Respiratory:: Bilateral: Rales (bases)
Lung Excursion:: Normal
Abdomen:: Nontender and Soft
Bowel Sounds:: Normal
Extremity Edema:: +2: Bilateral:
[place] Catheter: No
--- NOTE | 2024-10-20 15:53 | CM ---
CM reviewed chart and ADC>48 hours
Pt is current with [facility]
Watch nephro plan for possible HD
Per nursing, indep in room
Discharge Disposition- home with [facility], watch for possible HD needs
[2024-10-20] MEDS: APRESOLINE PO (16:19)
[2024-10-20 16:38] LABS: Glucose - Point of Care 167 mg/dl (70-99)
[2024-10-20] MEDS: NOVOLOG FLEXPEN-LOW RESISTANCE 1 UNITS SC (16:40)
[2024-10-20 18:52] LABS: Glucose - Point of Care 172 mg/dl (70-99)
[2024-10-20 19:10] LABS: Troponin I < 0.012 ng/ml
[2024-10-20 19:14] LABS: Blood Urea Nitrogen 82 mg/dl (9-20); Calcium 8.1 mg/dl (8.4-10.2); Carbon Dioxide 27 mmol/L (22-30); Chloride 102 mmol/L (98-107); Estimated Creatinine Clearance 25 ml/min; Glucose 156 mg/dl (70-99); Potassium 4.8 mmol/L (3.5-5.1); Sodium 135 mmol/L (135-145); eGFR 18.18
--- NOTE | 2024-10-20 19:31 | PTCARENOTE ---
At approximately 1800 pt rang call peters and stated ' I don't feel right. I walked back from the bathroom and feel lightheaded.' Pt also endorsed having aching pain across entire chest radiating to jaw and neck. Vitals and EKG obtained. Vitals at
1808: BP 131/54, HR 68, SpO2 98%, temp 97.8. EKG NSR. Hospitalist and manager cardiology made aware. Troponin and BMP ordered and sent. Portable chest Xray ordered. Pt continued to state 'I don't feel right.' Second set of vitals obtained at 1844: BP
120/64, HR 67, Spo2 98%. Blood sugar 172 mg/dl. Pt now stating that chest pain is starting to resolve but still feels light headed. Pt was newly started on Procardia XL today. Had episode of lightheadedness earlier in day shortly after receiving
medication. Symptoms resolved on own at that time. At 1618 pt BP 111/58. Reported BP and earlier symptoms to manager cardiology, who recommended holding 1600 dose of Hydralazine and giving 1600 dose of IV lasix. Report given to casino shift manager nurse. Pt
resting in bed and advised to alert staff if symptoms begin to worsen again. Call peters in reach.
--- NOTE | 2024-10-20 20:40 | PTCARENOTE ---
Pt states sl bilat neck pain,but no chest pain @ this time. No dyspnea. Vague answers when questioned about dizziness, stating no dizziness but then stating he thinks he feels a bit lightheaded @ times. BP 124/55 HR 71 POX on R/A 96%. PCX done.
Trop 0.012 Remains in SR.
--- NOTE | 2024-10-20 21:15 | TRANSFER ---
Pt transferred from rm 410 to 432 d/t hx of MRSA. Pt is AAOx3, able to make needs known, ambulates with minimal assistance. VSS on transfer, pt oriented to room and call peters within reach.
[2024-10-20 21:34] LABS: Glucose - Point of Care 163 mg/dl (70-99)
[2024-10-21] VITALS (8 sets, daily range): BP systolic 92–174; BP diastolic 49–84; BMI 23.3
[2024-10-21] MEDS: HEPARIN 5000 UNITS SC ×4 (00:16→23:55)
[2024-10-21 07:38] LABS: Glucose - Point of Care 103 mg/dl (70-99)
[2024-10-21 07:55] LABS: Hematocrit 26.9 % (39.0-52.0); Hemoglobin 8.7 g/dL (13.0-18.0); Mean Corp Hgb Conc. 32.3 g/dL (33.0-37.0); Mean Corpuscular Hgb 29.7 pg (27.0-31.0); Mean Corpuscular Volume 91.8 fL (80.0-94.0); Mean Platelet Volume 9.1 fL (7.4-10.4); Platelet Count 140 10^3/uL (130-400); Red Blood Cell Count 2.93 10^6/uL (4.70-6.10); Red Cell Dist. Width 18.7 % (11.5-14.5); White Blood Cell Count 3.7 10^3/uL (4.8-10.8)
--- NOTE | 2024-10-21 08:23 | W.PN.CD ---
Today's Communication / Plan
-
-Dry weight approx 80kg; continue Lasix 80 mg IV BID.
Impression / Plan
-
IMPRESSION/PLAN: 64M with hypertension, hyperlipidemia, type 2 diabetes mellitus, CKD4 (known diabetic nephropathy), and HFpEF who was discharged after a 15kg diuresis and FLU, represented with anasarca.
Belt Lacer: Dr. Nuñez
Anasarca: Etiology is multifactorial due to poor diuretic response, HFpEF and progressive kidney disease.
HFpEF, acute on chronic. High risk with CKD4.
-Echocardiogram 10/17/24: revealed an LVEF of 60-65% and mild to moderate mitral regurgitation; no significant change compared to previous.
-GDMT is limited with his underlying renal disease (no MRA or SGLT2i).
-Once euvolemic would transition to torsemide 40mg twice daily on discharge.
-Dry weight approx 80kg; continue Lasix 80 mg IV BID.
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
-Plan as above; Nephrology following.
-Hyperkalemia resolved.
-Continue to monitor creatinine.
Anemia: Suspect anemia of chronic disease. No signs or symptoms of blood loss.
HTN:
-Blood pressure is labile, but fairly controlled/stable overall.
-Continue hydralazine 100 TID.
-Continue coreg 25 mg BID.
NSVT:
-Stable; continue Coreg.
Hyperkalemia, on [facility] Mondays and Fridays - improved with effective diuresis
History of MRSA osteomyelitis
Type 2 diabetes mellitus, per primary
Influenza. Dx 10/04/24 - tx per primary team, seems to be recovering
Physical Exam
Vital Signs/Labs
Vital Signs
Temp Pulse Resp BP Pulse Ox
97.7 F 79 18 174/84 95
10/21/24 07:00 10/21/24 07:00 10/21/24 07:00 10/21/24 07:00 10/21/24 07:00
10/20/24 10/21/24 10/22/24
06:59 06:59 06:59
Actual Weight 85.729 kg 84.51 kg
10/21/24 07:39
Magnesium 2.4 mg/dl (1.6-2.3) H 10/17/24 05:38
10/16/24
15:43
Ryi-P-Jqjkciyffbg Pept > 99817
LAB Results
10/20/24
18:40
Troponin I < 0.012
Physical Exam
Constitutional: No acute distress and Comfortable
EENT: Anicteric
Cardiovascular: Rhythm & rate is regular, Pedal edema present (2+), Systolic murmur present (1/6) and S1S2 is normal
Respiratory: Respiratory effort normal and Lungs clear to auscul.
GI: Soft
Neuro/Psych: AO x 3
Other: Skin (Warm, dry, intact)
Data Reviewed
-
Date of Service: October 21, 2024
EKG: Tracing Personally Visualized and interpreted (Telemetry: Sinus rhythm)
Labs: Labs Reviewed by me
[2024-10-21 08:46] LABS: Blood Urea Nitrogen 79 mg/dl (9-20); Calcium 8.3 mg/dl (8.4-10.2); Carbon Dioxide 26 mmol/L (22-30); Chloride 103 mmol/L (98-107); Estimated Creatinine Clearance 27 ml/min; Glucose 94 mg/dl (70-99); Potassium 4.7 mmol/L (3.5-5.1); Sodium 138 mmol/L (135-145); eGFR 19.47
[2024-10-21] MEDS: NOVOLOG FLEXPEN-LOW RESISTANCE SC ×2 (09:02→12:30)
[2024-10-21] MEDS: NOVOLOG MIX 70/30 FLEXPEN 6 UNITS SC ×2 (09:04→17:26)
[2024-10-21] MEDS: WELLBUTRIN SR (12 hour sustained release) 150 MG PO ×2 (09:10→20:30)
[2024-10-21] MEDS: SODIUM BICARBONATE 1300 MG PO ×3 (09:11→22:05)
[2024-10-21] MEDS: ATIVAN 1 MG PO ×3 (09:11→22:05)
[2024-10-21] MEDS: NEURONTIN 300 MG PO ×2 (09:11→20:30)
[2024-10-21] MEDS: FLOMAX 0.4 MG PO (09:12)
[2024-10-21] MEDS: PROCARDIA XL (EXTENDED RELEASE) 30 MG PO (09:12)
[2024-10-21] MEDS: COREG 25 MG PO ×2 (09:24→20:30)
[2024-10-21] MEDS: APRESOLINE 100 MG PO (09:24)
[2024-10-21] MEDS: LASIX 80 MG IV (09:25)
--- NOTE | 2024-10-21 11:02 | CM ---
Chart reviewed and rn case mgr met with patient this am, per patient he plans on returning to home with visiting nurses. Patient is current with [facility] visiting nurses.
[facility]
[phone]

Plan; Home with [facility] visiting nurses.
[2024-10-21 11:55] LABS: Glucose - Point of Care 97 mg/dl (70-99)
--- NOTE | 2024-10-21 12:27 | W.PN.HOSP.TC ---
Today's Communication/Plan
-
with hypotension today - hold Nifedipine and give IVF bolus
reassess BP in afternoon to determine if evening Lasix can be given.
Assessment / Plan
Assessment / Plan
General: No Apparent Distress and Conversant
HEENT: NormoCephalic, Anicteric, Moist mucous membranes and Atraumatic
Respiratory: Clear
Cardiac: S1/S2 and Regular Rhythm
GI: Soft, Non Tender and Non Distended
Musculoskeletal: Edema, Left Lower Extremity and Edema, Right Lower Extremity
Neuro: AO x 3 and Nonfocal/grossly intact
Psych: Calm
Acute on chronic CHF with preserved ejection fraction
Echo with preserved EF
Continue with IV Lasix - requires intensive monitoring of I/Os, weights, lytes
Cardiology following
Eventual transition to p.o. torsemide when euvolemic and also prn Metolazone is an option as well
continue Hydralazine 100 mg 3 times daily, continue with Coreg 25 twice daily. add Nifedipine 2/3 per Cardiology.
Dizziness episode 2/4 with hypotension to 90s. Nifedipine stopped and IVF ordered.
Urinary retention - h/o bph, ? retention but no prior history of retention
Resolved
- bladders can protocol for now
- continue tamsulosin; advised patient to follow-up with urology outpatient
UA without UTI
Patient is currently not retaining anymore. Continue to monitor
IVY on CKD stage IIIb/IV (baseline low 3s)
Diabetic nephropathy
Continue to monitor renal function, creatinine 3.4 today
Nephrology following
continue sodium bicarb, monitor. Dosing per Nephrology
Hyperkalemia
On Lokelma at home, monitor off Lokelma inpatient as aggressive diuresis is keeping K stable
NIDDM
- continue 70/30 bid with sliding scale insulin
Nephrotic range proteinuria
Positive proteinase 3 antibodies
Essential hypertension
Continue Coreg, hydralazine
Chronic anemia
Left foot osteomyelitis status post fourth and fifth digit amputation
Anxiety
DVT PPX - heparin sq
Code status - full code
Anticipated Discharge: > 48 hours
Subjective/Interval History
-
Date of Service: October 21, 2024
hypotensive with dizziness, did receive all AM meds
Objective Data
-
Labs:
Laboratory Results
10/21/24
07:39
WBC 3.7 L
Hgb 8.7 L
Hct 26.9 L
Plt Count 140
Sodium 138
Potassium 4.7
Chloride 103
Carbon Dioxide 26
BUN 79 H
Creatinine 3.4 H
Glucose 94
Calcium 8.3 L
Vital Signs:
Vital Signs
Temp Pulse Resp BP Pulse Ox
97.6 F 62 16 92/49 96
10/21/24 12:01 10/21/24 12:01 10/21/24 12:01 10/21/24 12:01 10/21/24 12:01
I&O
10/20/24 10/21/24 10/22/24
06:59 06:59 06:59
Intake Total 898 / 898 840 / 840
Output Total 5650 / 5650 2100 / 2100
Balance -4752 / -4752 -1260 / -1260
Data Reviewed
-
Total Time Spent with Patient (in minutes): 51
Labs: Labs Reviewed by me
[2024-10-21] MEDS: NSS 500 IV (12:29)
--- NOTE | 2024-10-21 12:37 | PTCARENOTE ---
12:[address] Barry this am BP was 174/ 84, pt did receive all am BP meds. BP now 92/48 HR 66 resp 18, pt c/o feeling nausea, dizzy. MD ordered NSS 500 ml IV bolus x 1, continue to monitor pt closely.
--- NOTE | 2024-10-21 14:00 | PTCARENOTE ---
1330 Pt feeling better after IV bolus given, BP 95/[address] Barry aware and recomended to notify cardiology. 1345 Dr. Chatman notified. 1430 Spoke to vladimir GRINDING WHEEL FACER and noted current orders. Explain to pt current orders.
--- NOTE | 2024-10-21 14:34 | W.PN.NEPH.PH ---
Today's Communication / Plan
-
maintain diuresis
anti -htns adjusted earlier this morning during hypotensive episode
Creatinine stable at 3.4
Assessment/Plan
-
63-year-old male with chronic kidney disease s/p biopsy confirmed Diabetic nephropathy. Admitted with shortness of breath, anasarca, decompensated heart failure preserved ejection fraction.
impression:
GABBI
CKD4, baseline 3.0
Anasarca.
Diabetic nephropathy. Biopsy-proven
Hypertension.
Metabolic acidosis
Hyperkalemia
Anemia of chronic disease.
Plan.
GABBI-cr at 3.4 with diuretics
Weights down grossly non oliguric greater than 2L,weights down
hypotension this am
improving edema and wt with Intravenous Lasix 80 mg twice daily, possible DW 80kg
improving met acidosis Continue sodium bicarbonate
monitor k with low k diet
follow bladder scan s/p SC on 10/17-cont flomax
BP are high today, expect to improve with diuresis, (parameters provided with hypotension) coreg, hydralazine (reduced by cardiology)
may consider adding CCB if still high, off ACEI
Follow BMP
Agree with more conveniently bioavailable diuretic on conversion such as torsemide 40 mg twice daily at discharge
no emergent need of HD
Long discussion with the patient previously regarding possible future need of dialysis especially he had recurrent admissions with volume overloaded and progressive renal dysfunction. he will need to be referred to vascular for possible fistula
creation too. Unlikely he'll be a candidate for PD with current clinical status.
-
-
Date of Service: October 21, 2024
CC / HPI / ROS
-
Chief Complaint:
Gabbi with CKD
History of Present Illness:
cr is at 3.4
wt decreasing, SC Once on 10/17
Hypotensive episode this morning
Review of Systems:
no cp, improving sob
no dysuria
no n/v
Grossly nonoliguric in excess of 2 L
Weights down
Labs
-
Labs:
WBC 3.7 10^3/uL (4.8-10.8) L 10/21/24 07:39
RBC 2.93 10^6/uL (4.70-6.10) L 10/21/24 07:39
Hgb 8.7 g/dL (13.0-18.0) L 10/21/24 07:39
Hct 26.9 % (39.0-52.0) L 10/21/24 07:39
Plt Count 140 10^3/uL (130-400) 10/21/24 07:39
Sodium 138 mmol/L (135-145) 10/21/24 07:39
Potassium 4.7 mmol/L (3.5-5.1) 10/21/24 07:39
Chloride 103 mmol/L (98-107) 10/21/24 07:39
Carbon Dioxide 26 mmol/L (22-30) 10/21/24 07:39
BUN 79 mg/dl (9-20) H 10/21/24 07:39
Creatinine 3.4 mg/dL (0.7-1.3) H 10/21/24 07:39
eGFR 19.47 10/21/24 07:39
Glucose 94 mg/dl (70-99) 10/21/24 07:39
Calcium 8.3 mg/dl (8.4-10.2) L 10/21/24 07:39
Hxw-G-Wejhquvqewf Pept > 01349 pg/ml 10/16/24 15:43
Albumin 3.0 g/dl (3.5-5.0) L 10/20/24 07:01
Physical Exam
-
Vital Signs:
Vital Signs
Temp Pulse Resp BP Pulse Ox
97.6 F 62 16 92/49 96
10/21/24 12:01 10/21/24 12:01 10/21/24 12:01 10/21/24 12:01 10/21/24 12:01
Cardiovascular:: Regular rate and rhythm
Respiratory:: Bilateral: Rales (bases)
Lung Excursion:: Normal
Abdomen:: Nontender and Soft
Bowel Sounds:: Normal
Extremity Edema:: +2: Bilateral:
[place] Catheter: No
--- NOTE | 2024-10-21 14:34 | W.PN.UPDATE ---
Update Note
Progress Note Update
Called to see patient for hypotension. He endorsed associated dizziness. It had resolved by the time I saw him.
Parameters placed on carvedilol and hydralazine.
Tubigrip's ordered for lower extremity edema.
Suspecting a dry weight of 80 kg. Await nephrology evaluation
[2024-10-21 16:23] LABS: Glucose - Point of Care 154 mg/dl (70-99)
[2024-10-21] MEDS: APRESOLINE PO (16:42)
[2024-10-21] MEDS: NOVOLOG FLEXPEN-LOW RESISTANCE 1 UNITS SC (17:25)
[2024-10-21 21:51] LABS: Glucose - Point of Care 103 mg/dl (70-99)
[2024-10-21] MEDS: APRESOLINE 50 MG PO (22:05)
[2024-10-22 03:44] VITALS: BP 150/75
[2024-10-22 04:33] VITALS: BMI 23.2
[2024-10-22 07:00] VITALS: BP 179/93
[2024-10-22 07:26] LABS: Glucose - Point of Care 95 mg/dl (70-99)
--- NOTE | 2024-10-22 07:58 | W.PN.CD ---
Today's Communication / Plan
-
-Given blood pressure lability, will discontinue Lasix 80 mg IV BID (did not receive p.m. dose yesterday).
-Will place on torsemide 40 mg PO daily for now (uncertain if blood pressure will allow BID dosing); await further Nephrology input.
-Hypotensive episode today; hydralazine decreased from 100 mg TID to 50 mg TID.
-Continue coreg 25 mg BID.
Impression / Plan
-
IMPRESSION/PLAN: 64M with hypertension, hyperlipidemia, type 2 diabetes mellitus, CKD4 (known diabetic nephropathy), and HFpEF who was discharged after a 15kg diuresis and FLU, represented with anasarca.
It Security Manager: Dr. Nuñez
Anasarca: Etiology is multifactorial due to poor diuretic response, HFpEF and progressive kidney disease.
HFpEF, acute on chronic. High risk with CKD4.
-Echocardiogram 10/17/24: revealed an LVEF of 60-65% and mild to moderate mitral regurgitation; no significant change compared to previous.
-GDMT is limited with his underlying renal disease (no MRA or SGLT2i).
-Given blood pressure lability, will discontinue Lasix 80 mg IV BID (did not receive p.m. dose yesterday).
-Will place on torsemide 40 mg PO daily for now (uncertain if blood pressure will allow BID dosing); await further Nephrology input.
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
-Plan as above; Nephrology following.
-Hyperkalemia resolved.
-Continue to monitor creatinine; labs for this a.m. pending.
Anemia: Suspect anemia of chronic disease. No signs or symptoms of blood loss.
Labile HTN:
-Hypotensive episode today; hydralazine decreased from 100 mg TID to 50 mg TID.
-Continue coreg 25 mg BID.
NSVT:
-Stable; continue Coreg.
Hyperkalemia, on [facility] Mondays and Fridays - improved with effective diuresis
History of MRSA osteomyelitis
Type 2 diabetes mellitus, per primary
Influenza. Dx 10/04/24 - tx per primary team, seems to be recovering
Physical Exam
Vital Signs/Labs
Vital Signs
Temp Pulse Resp BP Pulse Ox
98.6 F 81 16 150/75 93
10/22/24 03:44 10/22/24 03:44 10/22/24 03:44 10/22/24 03:44 10/22/24 03:44
10/21/24 10/22/24 10/23/24
06:59 06:59 06:59
Actual Weight 84.51 kg 84.096 kg
Magnesium 2.4 mg/dl (1.6-2.3) H 10/17/24 05:38
10/16/24
15:43
Gmd-X-Cwewydytlya Pept > 37909
LAB Results
10/20/24
18:40
Troponin I < 0.012
Physical Exam
Constitutional: No acute distress and Comfortable
EENT: Anicteric
Cardiovascular: Rhythm & rate is regular, Systolic murmur absent, Pedal edema present (1-2+) and S1S2 is normal
Respiratory: Respiratory effort normal and Lungs clear to auscul.
GI: Soft and Non tender
Neuro/Psych: AO x 3
Other: Skin (Warm, dry)
Data Reviewed
-
Date of Service: October 22, 2024
EKG: Tracing Personally Visualized and interpreted (Telemetry: Sinus rhythm)
[2024-10-22 08:15] LABS: Hematocrit 26.7 % (39.0-52.0); Hemoglobin 8.7 g/dL (13.0-18.0); Mean Corp Hgb Conc. 32.6 g/dL (33.0-37.0); Mean Corpuscular Hgb 29.9 pg (27.0-31.0); Mean Corpuscular Volume 91.8 fL (80.0-94.0); Mean Platelet Volume 9.7 fL (7.4-10.4); Platelet Count 149 10^3/uL (130-400); Red Blood Cell Count 2.91 10^6/uL (4.70-6.10); Red Cell Dist. Width 18.7 % (11.5-14.5); White Blood Cell Count 4.1 10^3/uL (4.8-10.8)
[2024-10-22] MEDS: NOVOLOG FLEXPEN-LOW RESISTANCE SC ×3 (08:31→17:16)
[2024-10-22] MEDS: DEMADEX 40 MG PO (08:31)
[2024-10-22] MEDS: WELLBUTRIN SR (12 hour sustained release) 150 MG PO ×2 (08:32→21:22)
[2024-10-22] MEDS: NEURONTIN 300 MG PO ×2 (08:32→21:22)
[2024-10-22] MEDS: SODIUM BICARBONATE 1300 MG PO ×3 (08:32→21:22)
[2024-10-22] MEDS: ATIVAN 1 MG PO ×3 (08:32→21:22)
[2024-10-22] MEDS: COREG 25 MG PO ×2 (08:33→21:21)
[2024-10-22] MEDS: HEPARIN 5000 UNITS SC ×3 (08:33→23:38)
[2024-10-22] MEDS: FLOMAX 0.4 MG PO (08:33)
[2024-10-22] MEDS: APRESOLINE 50 MG PO ×3 (08:33→21:22)
[2024-10-22] MEDS: NOVOLOG MIX 70/30 FLEXPEN 6 UNITS SC ×2 (08:34→17:16)
[2024-10-22 08:55] LABS: Blood Urea Nitrogen 80 mg/dl (9-20); Calcium 8.2 mg/dl (8.4-10.2); Carbon Dioxide 26 mmol/L (22-30); Chloride 103 mmol/L (98-107); Estimated Creatinine Clearance 24 ml/min; Glucose 89 mg/dl (70-99); Potassium 4.8 mmol/L (3.5-5.1); Sodium 138 mmol/L (135-145); eGFR 17.59
--- NOTE | 2024-10-22 10:01 | CM ---
development manager reviewed patient's chart and plan is to home when stable with [facility] visiting nurses.
Plan; Home with [facility]
[phone]
[2024-10-22 11:00] VITALS: BP 175/91
--- NOTE | 2024-10-22 11:51 | W.PN.HOSP.TC ---
Today's Communication/Plan
-
Monitor vital signs see plan
Monitor renal function
Continue to monitor blood pressure closely, cardiology reduced hydralazine. Also on Coreg.
Nephrology to see today
Assessment / Plan
Assessment / Plan
General: No Apparent Distress and Conversant
HEENT: NormoCephalic, Anicteric, Moist mucous membranes and Atraumatic
Respiratory: Clear
Cardiac: S1/S2 and Regular Rhythm
GI: Soft, Non Tender and Non Distended
Musculoskeletal: Edema, Left Lower Extremity and Edema, Right Lower Extremity
Neuro: AO x 3 and Nonfocal/grossly intact
Psych: Calm
Acute on chronic CHF with preserved ejection fraction
Echo with preserved EF
Now on p.o. torsemide. Continue to monitor
Cardiology following
Eventual transition to p.o. torsemide when euvolemic and also prn Metolazone is an option as well
Hydralazine decreased to 50 mg 3 times daily, continue with Coreg 25 twice daily. Nifedipine stopped
Dizziness episode 2/4 with hypotension to 90s. Nifedipine stopped and IVF ordered.
Urinary retention - h/o bph, ? retention but no prior history of retention
Resolved
- bladders can protocol for now
- continue tamsulosin; advised patient to follow-up with urology outpatient
UA without UTI
Patient is currently not retaining anymore. Continue to monitor
IVY on CKD stage IIIb/IV (baseline low 3s)
Diabetic nephropathy
Continue to monitor renal function, creatinine 3.4 today
Nephrology following
continue sodium bicarb, monitor. Dosing per Nephrology
Hyperkalemia
On Lokelma at home, monitor off Lokelma inpatient as aggressive diuresis is keeping K stable
NIDDM
- continue 70/30 bid with sliding scale insulin
Nephrotic range proteinuria
Positive proteinase 3 antibodies
Essential hypertension
Continue Coreg, hydralazine
Chronic anemia
Left foot osteomyelitis status post fourth and fifth digit amputation
Anxiety
DVT PPX - heparin sq
Code status - full code
Anticipated Discharge: Within 24 hours
Subjective/Interval History
-
Date of Service: October 22, 2024
Denies pain
Objective Data
-
Labs:
Laboratory Results
10/22/24
07:23
WBC 4.1 L
Hgb 8.7 L
Hct 26.7 L
Plt Count 149
Sodium 138
Potassium 4.8
Chloride 103
Carbon Dioxide 26
BUN 80 H
Creatinine 3.7 H
Glucose 89
Calcium 8.2 L
Vital Signs:
Vital Signs
Temp Pulse Resp BP Pulse Ox
98.2 F 80 18 179/93 97
10/22/24 07:00 10/22/24 07:00 10/22/24 07:00 10/22/24 07:00 10/22/24 07:00
I&O
10/21/24 10/22/24 10/23/24
06:59 06:59 06:59
Intake Total 840 / 840 940 / 940
Output Total 2099 / 2099 2300 / 2300
Balance -1260 / -1260 -1360 / -1360
[2024-10-22 12:05] LABS: Glucose - Point of Care 116 mg/dl (70-99)
[2024-10-22 15:00] VITALS: BP 184/89
[2024-10-22 16:21] LABS: Glucose - Point of Care 131 mg/dl (70-99)
--- NOTE | 2024-10-22 17:34 | W.PN.NEPH.PH ---
Today's Communication / Plan
-
observe
Assessment/Plan
-
63-year-old male with chronic kidney disease s/p biopsy confirmed Diabetic nephropathy. Admitted with shortness of breath, anasarca, decompensated heart failure preserved ejection fraction.
impression:
GABBI
CKD4, baseline 3.0
Anasarca.
Diabetic nephropathy. Biopsy-proven
Hypertension.
Metabolic acidosis
Hyperkalemia
Anemia of chronic disease.
Plan.
GABBI-cr up at 3.7 today likely from hypotension on 10/21
meds are adjusted by cards, lowered hydralazine and changed to po Torsemide
monitor on this regimen
stable met acidosis Continue sodium bicarbonate
monitor k with low k diet
follow bladder scan s/p SC on 10/17-cont flomax
BP high today, monitor with meds, remains off ACEI
Follow BMP
no emergent need of HD
Long discussion with the patient previously regarding possible future need of dialysis especially he had recurrent admissions with volume overloaded and progressive renal dysfunction. he will need to be referred to vascular for possible fistula
creation too. Unlikely he'll be a candidate for PD with current clinical status.
-
-
Date of Service: October 22, 2024
CC / HPI / ROS
-
Chief Complaint:
Gabbi with CKD
History of Present Illness:
cr is at 3.7
wt decreasing, SC Once on 10/17
Hypotensive / now better
Review of Systems:
no cp, improving sob
no dysuria
no n/v
Weights down
Labs
-
Labs:
WBC 4.1 10^3/uL (4.8-10.8) L 10/22/24 07:23
RBC 2.91 10^6/uL (4.70-6.10) L 10/22/24 07:23
Hgb 8.7 g/dL (13.0-18.0) L 10/22/24 07:23
Hct 26.7 % (39.0-52.0) L 10/22/24 07:23
Plt Count 149 10^3/uL (130-400) 10/22/24 07:23
Sodium 138 mmol/L (135-145) 10/22/24 07:23
Potassium 4.8 mmol/L (3.5-5.1) 10/22/24 07:23
Chloride 103 mmol/L (98-107) 10/22/24 07:23
Carbon Dioxide 26 mmol/L (22-30) 10/22/24 07:23
BUN 80 mg/dl (9-20) H 10/22/24 07:23
Creatinine 3.7 mg/dL (0.7-1.3) H 10/22/24 07:23
eGFR 17.59 10/22/24 07:23
Glucose 89 mg/dl (70-99) 10/22/24 07:23
Calcium 8.2 mg/dl (8.4-10.2) L 10/22/24 07:23
Fbw-A-Oxwjhmjpyzr Pept > 82664 pg/ml 10/16/24 15:43
Albumin 3.0 g/dl (3.5-5.0) L 10/20/24 07:01
Physical Exam
-
Vital Signs:
Vital Signs
Temp Pulse Resp BP Pulse Ox
97.8 F 70 18 184/89 94
10/22/24 15:00 10/22/24 15:00 10/22/24 15:00 10/22/24 15:00 10/22/24 15:00
Cardiovascular:: Regular rate and rhythm
Respiratory:: Bilateral: CTA
Lung Excursion:: Normal
Abdomen:: Nontender and Soft
Bowel Sounds:: Normal
Extremity Edema:: +1: Bilateral:
[place] Catheter: No
[2024-10-22 19:30] VITALS: BP 178/88
[2024-10-22 21:27] LABS: Glucose - Point of Care 173 mg/dl (70-99)
[2024-10-22 23:30] VITALS: BP 176/88
[2024-10-23 03:38] VITALS: BP 177/86
[2024-10-23 06:00] VITALS: BMI 22.7
[2024-10-23 07:18] VITALS: BP 176/94
[2024-10-23 07:42] LABS: Glucose - Point of Care 123 mg/dl (70-99)
[2024-10-23 08:00] LABS: Hematocrit 26.7 % (39.0-52.0); Hemoglobin 8.7 g/dL (13.0-18.0); Mean Corp Hgb Conc. 32.6 g/dL (33.0-37.0); Mean Corpuscular Hgb 29.9 pg (27.0-31.0); Mean Corpuscular Volume 91.8 fL (80.0-94.0); Mean Platelet Volume 9.3 fL (7.4-10.4); Platelet Count 145 10^3/uL (130-400); Red Blood Cell Count 2.91 10^6/uL (4.70-6.10); Red Cell Dist. Width 18.4 % (11.5-14.5); White Blood Cell Count 3.8 10^3/uL (4.8-10.8)
--- NOTE | 2024-10-23 08:00 | W.PN.CD ---
Today's Communication / Plan
-
AM labs pending
continue torsemide 40mg daily
-upon discharge, he can take a PM dose as needed for weight gain (2-3lbs one day, or 5 lbs in one week)
BP has been labile: if remains elevated, can increase hydralazine to 75mg tid
cont coreg 25mg bid
discharge planning
please call us with additional questions
Impression / Plan
-
IMPRESSION/PLAN: 64M with hypertension, hyperlipidemia, type 2 diabetes mellitus, CKD4 (known diabetic nephropathy), and HFpEF who was discharged after a 15kg diuresis and FLU, represented with anasarca.
Project Director: Dr. Nuñez
Anasarca: Etiology is multifactorial due to poor diuretic response, HFpEF and progressive kidney disease.
HFpEF, acute on chronic. High risk with CKD4.
-Echocardiogram 10/17/24: revealed an LVEF of 60-65% and mild to moderate mitral regurgitation; no significant change compared to previous.
-GDMT is limited with his underlying renal disease (no MRA or SGLT2i).
-stable on torsemide 40mg daily: continue
-upon discharge, he can take a PM dose as needed for weight gain (2-3lbs one day, or 5 lbs in one week)
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
-Plan as above; Nephrology following.
-Hyperkalemia resolved.
-Continue to monitor creatinine; labs for this a.m. pending.
Anemia: Suspect anemia of chronic disease. No signs or symptoms of blood loss.
Labile HTN:
-Continue coreg 25 mg BID.
-hydralazine reduced to 50mg tid: if BP remains elevated, can increase hydralazine to 75mg tid
NSVT:
-Stable; continue Coreg.
Hyperkalemia, on [facility] Mondays and Fridays - improved with effective diuresis
History of MRSA osteomyelitis
Type 2 diabetes mellitus, per primary
Influenza. Dx 10/04/24 - tx per primary team, seems to be recovering
Physical Exam
Vital Signs/Labs
Vital Signs
Temp Pulse Resp BP Pulse Ox
98.0 F 81 18 177/86 94
10/23/24 03:38 10/23/24 03:38 10/23/24 03:38 10/23/24 03:38 10/23/24 03:38
10/22/24 10/23/24 10/24/24
06:59 06:59 06:59
Actual Weight 84.096 kg 82.214 kg
Magnesium 2.4 mg/dl (1.6-2.3) H 10/17/24 05:38
10/16/24
15:43
Hrg-J-Iiqrmjsrkwq Pept > 41445
LAB Results
10/20/24
18:40
Troponin I < 0.012
Physical Exam
Constitutional: No acute distress and Comfortable
EENT: Moist mucous membranes
Cardiovascular: Rhythm & rate is regular, JVD pressure is normal, Systolic murmur absent and Pedal edema present (trace)
Respiratory: Respiratory effort normal and Lungs clear to auscul.
Neuro/Psych: AO x 3
Data Reviewed
-
Date of Service: October 23, 2024
Labs: Labs Reviewed by me (Hgb stable at 8.7)
[2024-10-23 08:21] LABS: % Basophils 0.8 % (0-2); % Eosinophils 3.7 % (0-6); % Immature Granulocytes 0.3 % (0-0.5); % Lymphocytes 25.7 % (20.5-51.1); % Monocytes 12.2 % (1.7-9.3); % Neutrophils 57.3 % (42.2-75.2); Absolute Eosinophils 0.1 10^3/uL (0-0.7); Absolute Monocytes 0.5 10^3/uL (0.1-0.6); Absolute Neutrophils 2.2 10^3/uL (1.4-6.5); Nucleated Red Blood Cells % 0 % (-)
[2024-10-23 08:23] LABS: Blood Urea Nitrogen 73 mg/dl (9-20); Calcium 8.5 mg/dl (8.4-10.2); Carbon Dioxide 30 mmol/L (22-30); Chloride 106 mmol/L (98-107); Estimated Creatinine Clearance 24 ml/min; Glucose 104 mg/dl (70-99); Potassium 4.8 mmol/L (3.5-5.1); Sodium 140 mmol/L (135-145); eGFR 18.18
[2024-10-23] MEDS: NOVOLOG FLEXPEN-LOW RESISTANCE SC (08:38)
[2024-10-23] MEDS: NOVOLOG MIX 70/30 FLEXPEN 6 UNITS SC (08:39)
[2024-10-23] MEDS: HEPARIN 5000 UNITS SC (08:40)
[2024-10-23] MEDS: SODIUM BICARBONATE 1300 MG PO (08:42)
[2024-10-23] MEDS: ATIVAN 1 MG PO (08:42)
[2024-10-23] MEDS: WELLBUTRIN SR (12 hour sustained release) 150 MG PO (08:42)
[2024-10-23] MEDS: APRESOLINE 50 MG PO (08:42)
[2024-10-23] MEDS: FLOMAX 0.4 MG PO (08:43)
[2024-10-23] MEDS: DEMADEX 40 MG PO (08:43)
[2024-10-23] MEDS: COREG 25 MG PO (08:43)
[2024-10-23] MEDS: NEURONTIN 300 MG PO (08:43)
--- NOTE | 2024-10-23 11:02 | W.PN.HOSP.TC ---
Today's Communication/Plan
-
Monitor vital signs see plan
Continue with p.o. torsemide
Discussed with nephrology and cardiology. Will increase hydralazine to 75 mg 3 times daily
Discharge today
Time of discharge 38 minutes
Assessment / Plan
Assessment / Plan
General: No Apparent Distress and Conversant
HEENT: NormoCephalic, Anicteric, Moist mucous membranes and Atraumatic
Respiratory: Clear
Cardiac: S1/S2 and Regular Rhythm
GI: Soft, Non Tender and Non Distended
Musculoskeletal: Edema, Left Lower Extremity and Edema, Right Lower Extremity
Neuro: AO x 3 and Nonfocal/grossly intact
Psych: Calm
Acute on chronic CHF with preserved ejection fraction
Echo with preserved EF
Now on p.o. torsemide. Continue to monitor
Cardiology following
Continue with p.o. torsemide, extra p.m. dose for weight gain
Increase hydralazine to 75 mg 3 times daily, continue with Coreg 25 twice daily.
Dizziness episode 2/4 with hypotension to 90s. Nifedipine stopped and IVF ordered.
Urinary retention - h/o bph, ? retention but no prior history of retention
Resolved
- bladders can protocol for now
- continue tamsulosin; advised patient to follow-up with urology outpatient
UA without UTI
Patient is currently not retaining anymore. Continue to monitor
IVY on CKD stage IIIb/IV (baseline low 3s)
Diabetic nephropathy
Continue to monitor renal function, creatinine 3.6 today
Nephrology following
Bicarb now improved
Hyperkalemia
On Lokelma at home, monitor off Lokelma inpatient as aggressive diuresis is keeping K stable
NIDDM
- continue 70/30 bid with sliding scale insulin
Nephrotic range proteinuria
Positive proteinase 3 antibodies
Essential hypertension
Continue Coreg, hydralazine
Chronic anemia
Left foot osteomyelitis status post fourth and fifth digit amputation
Anxiety
DVT PPX - heparin sq
Code status - full code
Anticipated Discharge: Today
Subjective/Interval History
-
Date of Service: October 23, 2024
Denies pain
Objective Data
-
Labs:
Laboratory Results
10/23/24
07:23
WBC 3.8 L
Hgb 8.7 L
Hct 26.7 L
Plt Count 145
Sodium 140
Potassium 4.8
Chloride 106
Carbon Dioxide 30
BUN 73 H
Creatinine 3.6 H
Glucose 104 H
Calcium 8.5
Vital Signs:
Vital Signs
Temp Pulse Resp BP Pulse Ox
98.1 F 82 18 176/94 93
10/23/24 07:18 10/23/24 07:18 10/23/24 07:18 10/23/24 07:18 10/23/24 07:18
I&O
10/22/24 10/23/24 10/24/24
06:59 06:59 06:59
Intake Total 940 / 940
Output Total 2300 / 2300 900 / 900
Balance -1360 / -1360 -900 / -900
--- NOTE | 2024-10-23 11:11 | W.DCSUMMARY ---
Discharge Summary
Discharge Data
Date of Admission: 10/16/24
Date of Discharge: 10/23/24
-
Pending Results: No
Hospital Course
64-year-old male with past medical history of CHF, CKD, diabetes mellitus, nephrotic range proteinuria, essential hypertension, chronic anemia, left foot osteomyelitis status post fourth and fifth digit amputation, anxiety came to the hospital with
weight gain and shortness of breath with acute on chronic congestive heart failure exacerbation. Patient was initially started on IV Lasix which improved her symptoms. Prior to discharge she was transitioned to oral torsemide. He also had an
echocardiogram which showed preserved ejection fraction. He was seen by cardiology and nephrology throughout hospitalization. His blood pressure was elevated on this hospitalization and he was started on nifedipine however he then developed
dizziness along with hypotension so nifedipine was stopped. He also had IVY on CKD which continue to improve over time. He initially had urinary retention which was resolved prior to discharge. Once his symptoms continue to improve, he was then
discharged home with instructions to follow-up with all his physicians outpatient.
Discharge Plan
-
Patient Disposition: Home (Routine Discharge)
Discharge Diagnosis/Procedures: Acute on chronic congestive heart failure exacerbation
Urinary retention
Acute kidney injury on CKD
Hyperkalemia
Hypotension
Diet: As tolerated, 2 Gram Sodium and Restrict fluids to 48 oz
Activity: As tolerated
Driving Restrictions: As prior to admission
Bathing Restrictions: None
Blood Work: BMP next week with primary care provider
Activity Restrictions/Additional Instructions:
can take a PM dose of torsemide as needed for weight gain (2-3lbs one day, or 5 lbs in one week)
Instructions: *CBC Heart Failure Instructions
Referrals:
[facility] [Outside]
Elicia Terry CRNP [Specified Professional Personl] - 10/30/24 11:20 am
Nik Dumont MD [Family Provider] - in less than 1 week
Nicky Willis MD [Active] -
Prescriptions:
New
torsemide 20 mg Tablet
40 mg PO DAILY Qty: 60 0RF
Continued
lorazepam 1 mg tablet
1 mg PO TID
Patient Comments:
Last filled 09/12/24 #270 for 90 days
bupropion HCl [Wellbutrin SR] 150 mg Tablet Sustained-Release 12 Hr
150 mg PO BID
gabapentin 300 mg Capsule
300 mg PO BID
tamsulosin 0.4 mg Capsule
0.4 mg PO DAILY Qty: 30 0RF
acetaminophen [Tylenol Extra Strength] 500 mg Tablet
1,000 mg PO Q6HPRN PRN (Reason: mild pain)
Lokelma 10 gram powder in packet
10 g PO MOFR
Rx Instructions:
take 10 grams on Sunday and Sunday weekly x 3 weeks
carvedilol 25 mg Tablet
25 mg PO BID Qty: 60 2RF
prednisone 10 mg tablet
10 mg PO DAILY Qty: 8 0RF
Rx Instructions:
Take 1 tab daily for 5 days THEN
Take Half tab daily for 5 days THEN stop
hydralazine 50 mg Tablet
75 mg PO TID 30 Days Qty: 135 2RF
Changed
insulin lispro protamin-lispro [Humalog Mix 75-25 KwikPen] 100 unit/mL (75-25) insulin pen
6 unit SC BID Qty: 15 1RF
Discontinued
furosemide [Lasix] 40 mg tablet
40 mg PO DAILY Qty: 30 2RF
Discharge Orders:
Discharge Patient (As Directed); Ordered 10/23/24
Ordered By: Subhash Infante
Care Plan Goals
Care Plan Goals:
Problem: Readiness for enhanced knowledge related to diagnosis and treatment plan
Goal: Understand your diagnosis and treatment plan needs, including medications if applicable.
Instructions: Know your diagnosis, underlying causes and treatment plan options, including medications if applicable. Consult with your health care team to learn about your diagnosis and treatment plan, including medications if applicable.
Discharge Date and Time
Discharge Date/Time: 10/23/24 12:28
Print Language: SWEDISH
--- NOTE | 2024-10-23 11:29 | CM ---
CM reviewed chart, patient for discharge. Patient seen bedside, IMM verbally reviewed, agreeable to discharge, provided with copy, form placed in chart. Patient reports his son will transport home. CM will update [facility] on discharge. CM will
continue to follow for all discharge planning needs.
Plan; home with [facility]
[phone]
[2024-10-23 11:31] VITALS: BP 189/97
--- NOTE | 2024-10-24 10:40 | W.HF.CON ---
Heart Failure
- LV Function
Left ventricular function study result: LV Ejection fraction >/= 50%
Ejection Fraction Percentage: 60-65
- ARNI
Patient already on ARNI: No
Heart Failure ARNI Not Indicated: LV Ejection Fraction >/= 40%
- ACEI/ARB
Patient already on ACEI/ARB: No
Heart Failure ACEI/ARB Not Indicated: LV Ejection Fraction > 40%
- Beta Bonita
Patient already on Evidence Based Beta Bonita: Yes
- Mineralocorticord Receptor Antagonist
Patient already on MRA: No
Heart Failure MRA Not Indicated: LV Ejection Fraction > 40%
- SGLT-2 Inhibitor
Patient already on SGLT-2 Inhibitor: No
Heart Failure SGLT-2 Inhibitor Contraindication: eGFR < 25
- NYHA CHF Classification
NYHA CHF Classification Level: Class III - Symptoms w/ min exertion, interferes w/ nml daily activity
- ACC/AHA Stage
ACC/AHA Stage: Stage C: Symptomatic Heart Failure
== END 2024-10-23 12:28 | disposition home or self-care (01) | DRG 291 ==
LOC: 4 WEST ACU 20:09
PROVIDERS: Internal Medicine; Physician Assistant; ADMITTING PHYSICIAN Internal Medicine; ATTENDING PHYSICIAN Internal Medicine; CONSULT PHYSICIAN Internal Medicine Cardiovascular Disease; EMERGENCY PHYSICIAN Student in an Organized Health Care Education/Training Program; FAMILY PHYSICIAN Internal Medicine; OTHER PHYSICIAN Specialist
DX: I13.0 Hypertensive heart and chronic kidney disease with heart failure and stage 1 through stage 4 chronic kidney disease, or unspecified chronic kidney disease (principal); I50.33 Acute on chronic diastolic (congestive) heart failure; N18.4 Chronic kidney disease, stage 4 (severe); N17.9 Acute kidney failure, unspecified; I47.20 Ventricular tachycardia, unspecified; E87.20 Acidosis, unspecified; M86.9 Osteomyelitis, unspecified; E11.22 Type 2 diabetes mellitus with diabetic chronic kidney disease; E87.5 Hyperkalemia; E78.00 Pure hypercholesterolemia, unspecified; E11.40 Type 2 diabetes mellitus with diabetic neuropathy, unspecified; Z79.4 Long term (current) use of insulin; D63.1 Anemia in chronic kidney disease; F32.A Depression, unspecified; F41.9 Anxiety disorder, unspecified; E11.69 Type 2 diabetes mellitus with other specified complication; Z86.16 Personal history of COVID-19; Z79.899 Other long term (current) drug therapy; Z86.14 Personal history of Methicillin resistant Staphylococcus aureus infection; M51.360 Other intervertebral disc degeneration, lumbar region with discogenic back pain only; M43.26 Fusion of spine, lumbar region; Z90.49 Acquired absence of other specified parts of digestive tract; Z89.422 Acquired absence of other left toe(s)
CPT/HCPCS: 71045; 71046; 80048; 80053; 81003; 81015; 82962; 83036; 83735; 83880; 84443; 84484; 85025; 85027; 93005; 93306; 96374; 99285

== ENCOUNTER → 2024-10-30 12:36 | Outpatient (REF) | payer MEDICARE, OTHER, SELFPAY ==
[2024-10-30 14:15] LABS: Blood Urea Nitrogen 88 mg/dl (9-20); Calcium 8.3 mg/dl (8.4-10.2); Carbon Dioxide 19 mmol/L (22-30); Chloride 109 mmol/L (98-107); Glucose 102 mg/dl (70-99); Potassium 4.9 mmol/L (3.5-5.1); Sodium 140 mmol/L (135-145); eGFR 13.55
== END ==
LOC: REG 12:36
PROVIDERS: ATTENDING PHYSICIAN Nurse Practitioner; FAMILY PHYSICIAN Internal Medicine
DX: I50.30 Unspecified diastolic (congestive) heart failure (principal)
CPT/HCPCS: 36415; 80048

== ENCOUNTER → 2024-11-07 12:29 | Outpatient (REF) | payer MEDICARE, OTHER, SELFPAY ==
[2024-11-07 14:51] LABS: Blood Urea Nitrogen 124 mg/dl (9-20); Calcium 8.2 mg/dl (8.4-10.2); Carbon Dioxide 19 mmol/L (22-30); Chloride 105 mmol/L (98-107); Glucose 151 mg/dl (70-99); Potassium 5.6 mmol/L (3.5-5.1); Sodium 138 mmol/L (135-145); eGFR 12.87
== END ==
LOC: REG 12:29
PROVIDERS: ATTENDING PHYSICIAN Internal Medicine Cardiovascular Disease; FAMILY PHYSICIAN Internal Medicine
DX: I50.33 Acute on chronic diastolic (congestive) heart failure (principal)
CPT/HCPCS: 36415; 80048

== ENCOUNTER 2024-11-13 21:16 | Inpatient (IN) | payer MEDICARE, OTHER, SELFPAY ==
[2024-11-13] VITALS (7 sets, daily range): BP systolic 126–149; BP diastolic 61–109
[2024-11-13 17:18] LABS: % Basophils 0.8 % (0-2); % Eosinophils 20.2 % (0-6); % Immature Granulocytes 0.5 % (0-0.5); % Lymphocytes 11.4 % (20.5-51.1); % Monocytes 8.8 % (1.7-9.3); % Neutrophils 58.3 % (42.2-75.2); Absolute Basophils 0.1 10^3/uL (0-0.2); Absolute Eosinophils 1.3 10^3/uL (0-0.7); Absolute Lymphocytes 0.7 10^3/uL (1.2-3.4); Absolute Monocytes 0.6 10^3/uL (0.1-0.6); Absolute Neutrophils 3.7 10^3/uL (1.4-6.5); Hematocrit 27.7 % (39.0-52.0); Hemoglobin 8.9 g/dL (13.0-18.0); Mean Corp Hgb Conc. 32.1 g/dL (33.0-37.0); Mean Corpuscular Hgb 30.6 pg (27.0-31.0); Mean Corpuscular Volume 95.2 fL (80.0-94.0); Mean Platelet Volume 9.3 fL (7.4-10.4); Nucleated Red Blood Cells % 0 % (-); Platelet Count 179 10^3/uL (130-400); Red Blood Cell Count 2.91 10^6/uL (4.70-6.10); Red Cell Dist. Width 16.3 % (11.5-14.5); White Blood Cell Count 6.3 10^3/uL (4.8-10.8)
[2024-11-13 17:50] LABS: ALT (SGPT) 53 U/L (0-50); AST (SGOT) 28 U/L (17-59); Albumin 3.8 g/dl (3.5-5.0); Alkaline Phosphatase 135 U/L (38-126); Calcium 8.1 mg/dl (8.4-10.2); Carbon Dioxide 10 mmol/L (22-30); Chloride 114 mmol/L (98-107); Glucose 165 mg/dl (70-99); Lipase 124 U/L (23-300); Potassium 5.8 mmol/L (3.5-5.1); Sodium 140 mmol/L (135-145); Total Bilirubin 0.4 mg/dl (0.2-1.3); Total Protein 6.8 g/dl (6.3-8.2); eGFR 11.43
[2024-11-13 18:01] LABS: Blood Urea Nitrogen 136 mg/dl (9-20)
--- NOTE | 2024-11-13 19:28 | ED.GENMED ---
History of Present Illness
General
Chief Complaint: Flank Pain
Source: patient
Exam Limitations: none
Time Seen by Provider: 11/13/24 19:13
History of Present Illness
History of Present Illness:
64yoM with a history of CHF, diabetes, hypertension, hyperlipidemia, CKD presenting to the ED to initiate dialysis. Patient has had multiple recent admissions for CHF exacerbations and his CKD has been progressive. 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 Patient reports feeling fatigued. He had nausea earlier today but denies this currently. He also reports having 'kidney pain' bilaterally x several weeks primarily with movement. His leg swelling is much better
than it has been and he denies any shortness of breath. Urination has been normal.
Past History
Past History
ED Past Medical History: HTN, IDDM, Psychiatric (Anxiety) and Other (Low back pain)
ED Past Surgical History: Orthopedic (Back surgeries) and Other (Amputation left fifth toe)
Social History
Tobacco: Non-smoker
Alcohol: Occasional
Drug: None
Personal:
Living: other (Resides with brother )
Employment: Disabled
Family History
Family History: Other (Noncontributory)
Phy Exam
General Physical Exam
General Presentation: no apparent distress
General Skin: warm and dry
General Habitus: normal
General Mental: alert
ENT Exam
ENT Exam: normocephalic
Cardiovascular Exam
Cardiovascular Exam: regular rate/rhythm
Pulmonary Exam
Pulmonary Exam: lungs clear, no respiratory distress, no rales, no crackles and no rhonchi
[place] Coma Scale
Eye Opening: Spontaneous
Verbal Response: Oriented
Motor Response: Obeys Commands
GCS Total Score: 15
Skin Exam
Skin Exam: normal color and warm/dry
Psychiatric Exam
Psychiatric Exam: normal mood/affect
Course
Orders/Labs/Results
Orders:
Orders
11/13/24 Dinner
1800 calorie (15 carb) Diabetic
Diabetic Diet: Sodium, 2 Gram
Potassium, 2 Gram
11/13/24 16:43
Electrocardiogram (*1) Urgent
Reason for Study: Abdominal Pain
EKG- Treatment ONCE
11/13/24 17:09
Complete Blood Count/With Diff Urgent
Comprehensive Metabolic Panel Urgent
Lipase Urgent
11/13/24 19:31
Sodium Zirconium Cyclosilicate [Lokelma] 10 gram PO NOW STA
11/13/24 19:33
Calcium Gluconate 1,000 mg IV NOW STA
11/13/24 20:23
Admit/Transfer Patient As Directed
Co-Sign Provider:
Level of Care: Inpatient admission
Assign to:: Telemetry
Physician / Group: hospitalist
Diagnosis: renal failure
Reason for Telemetry: Other
Other Reason for Telemetry: hyperkalemia
Date to Stop Telemetry: 11/15/24
Time to Stop Telemetry: 11:00
Reason for Hospitalization: renal failure
Expected length of stay greater than two midnights?: Yes
ELOS- Estimated Length of Stay in days: 2
I certify the patient meets the requirements for IP care: Yes
PRN Pain Medication Management As Directed
May give lesser potent ordered pain med per pt: Yes
preference::
Protocol:: Medication orders for pain may be administered in a
manner that supports deferring to patient preference
when the pt is:
- Requesting an ordered lesser potent pain medication.
Least to most potent pain medications are defined
as: acetaminophen < NSAID < tramadol < opioids
(morphine, oxycodone, hydromorphone).
- Requesting a lesser dose of the same medication IF
ORDERED.
- Requesting a less intrusive route of administration
if both routes are prescribed by the provider (PO <
IV).
11/13/24 20:24
Code Status As Directed
Resuscitation Status: Full Code
11/13/24 21:03
Urinalysis Reflex To Culture Urgent
Date Specimen was Collected: 11/13/24
Time Specimen was Collected: 20:58
Urine Microscopic Reflex Cult Urgent
Urine Culture Urgent
JOSEFA Source: U
Specimen Description:
Date Specimen was Collected: 11/13/24
Time Specimen was Collected: 20:58
11/13/24 21:53
Acetaminophen [Tylenol] 1,000 mg PO Q6HPRN PRN
Bisacodyl [Dulcolax] 10 mg RECTAL [id number] PRN
Docusate W/Senna [Senokot-S] 1 tablet PO BIDPRN PRN
Ondansetron Injectable [Zofran] 4 mg IV Q6HPRN PRN
Polyethylene Glycol Powder [Miralax] 17 grams PO DAILYPRN PRN
11/13/24 21:53
IRAD CONSULT Routine
Consulting Provider: Bernard Modi
Was physician already notified: Yes
Reason for Consult/Procedure: Dialysis catheter placement
Acknowledgement that appropriate orders are entered: Yes
NEPHROLOGY CONSULT Routine
Consulting Provider: Dustin Durant
Was physician already notified: Yes
Reason for consult: renal failure, initiate dialysis
Activity As Directed
Activity Level: With Assistance
Bedside Glucose Monitoring As Directed
Frequency: AC&HS
Vital Signs As Directed
Frequency: Per unit guidelines
Pulse Ox/spot Check [RESP] Routine
Quantity: 1
DX Deep Vein Thrombosis Video Routine
11/13/24 22:00
Flush (0.9% Sodium Chloride) [Flush (Nss)] See Dose Instructions IV PER PROTOCOL
HydrALAZINE [Apresoline] 75 mg PO TID
Lorazepam [Ativan] 1 mg PO TID
11/14/24 00:00
Heparin 5,000 units SC Q8
11/14/24 06:00
Type And Crossmatch [Type+Screen] IN AM
Basic Metabolic Panel IN AM
PT/INR [Prothrombin Time] IN AM
11/14/24 07:30
Insulin Aspart Corrective Low [Novolog Flexpen-Low Resistance] See Protocol SC AC
11/14/24 08:00
Bupropion(12Hr)Sustain Release [WELLBUTRIN SR (12 hour sustained release)] 150 mg PO BID
Carvedilol [Coreg] 25 mg PO BID
Gabapentin [Neurontin] 300 mg PO BID
Insulin Aspart/Asp Protamine [Novolog Mix 70/30 Flexpen] 5 units SC BID
Metolazone [Zaroxolyn] 2.5 mg PO DAILY
Sodium Zirconium Cyclosilicate [Lokelma] 10 gram PO MoFr@0800
Torsemide [Demadex] 40 mg PO BID AT 0800,1600
11/15/24 11:00
DC Protocol for Telemetry ONCE
Abnormal Lab Results
11/13/24 11/13/24
17:09 21:03
RBC 2.91 L 10^6/uL
(4.70-6.10)
Hgb 8.9 L g/dL
(13.0-18.0)
Hct 27.7 L %
(39.0-52.0)
MCV 95.2 H fL
(80.0-94.0)
MCHC 32.1 L g/dL
(33.0-37.0)
RDW 16.3 H %
(11.5-14.5)
Absolute Lymphs (auto) 0.7 L 10^3/uL
(1.2-3.4)
Absolute Eos (auto) 1.3 H 10^3/uL
(0-0.7)
Lymphocytes % 11.4 L %
(20.5-51.1)
Eosinophils % 20.2 H %
(0-6)
Potassium 5.8 H mmol/L
(3.5-5.1)
Chloride 114 H mmol/L
(98-107)
Carbon Dioxide 10 L* mmol/L
(22-30)
BUN 136 H* mg/dl
(9-20)
Creatinine 5.3 H* mg/dL
(0.7-1.3)
Glucose 165 H mg/dl
(70-99)
Calcium 8.1 L mg/dl
(8.4-10.2)
ALT 53 H U/L
(0-50)
Alkaline Phosphatase 135 H U/L
(38-126)
Urine Ketones 1+ A
(Negative)
Ur Occult Blood Reflex 2+ A
(Negative)
Leukocyte Esterase Rfl 2+ A
(Negative)
Urine RBC 21-25 A /HPF
(0-2)
Urine Bacteria (Reflex) Few A
(Negative)
11/13/24 17:09
11/13/24 17:09
Vital Signs
Initial and Last Documented VS:
Initial Vital Signs
Temp Pulse Resp BP Pulse Ox
97.4 F 72 16 126/61 99
11/13/24 16:36 11/13/24 16:36 11/13/24 16:36 11/13/24 16:36 11/13/24 16:36
Last Documented Vital Signs
Temp Pulse Resp BP Pulse Ox
97.4 F 80 13 125/69 98
11/13/24 16:36 11/14/24 05:15 11/14/24 05:15 11/14/24 04:00 11/14/24 05:15
MDM/Problems Addressed
Differential Diagnosis Includes:
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 C/o fatigue, nausea, and bilateral flank pain x several weeks. VSS. He is chronically ill appearing in no acute distress. No clinical signs of volume overload. Differential diagnosis
includes: ESRD, cardiorenal syndrome, no clinical signs of CHF exacerbation
Labs obtained in triage. Creatinine 5.3 and BUN 136. Potassium 5.8 and bicarb is 10. EKG shows NSR with mildly peaked T waves. Lokelma and IV calcium ordered. Nephrology notified and patient admitted for further management.
*EKG
Interpreted by ED Provider?: Yes
EKG Intrepretation Date: 11/13/24
Heart Rate: 71
Rate: normal
Rhythm: sinus
Pinon: normal axis
Interval: normal interval
QRS Pattern: normal QRS
Ischemia: other (mildly peaked T waves)
*Critical Care Note
Total Time (30-74mins, 75-104mins- exclusive of procedures): Not Applicable
ED Attending Note
-
Portions of this chart may have been created with voice recognition software.� Occasional wrong word or��sound alike� substitutions may have occurred due to the inherent limitations of voice recognition software.
Discharge Plan
Departure
Patient Disposition: Admit
Date of Disposition: 11/13/24
Time of Disposition: 19:35
Presentation/result/management discussed w/ accepting MD/DO: Hospitalist
Discharge Problem:
Acute on chronic kidney failure, Metabolic acidosis
Interventions
Interventions:
*Risk Screen - Suicide Last Done: 11/13/24 16:36
*General Assessment Last Done: 11/13/24 19:21
*Neglect/Abuse Screening Last Done: 11/13/24 16:36
*ED COVID-19 Vaccine History Last Done: 11/13/24 19:21
KU-Svmxbg-Uyvxngarsi Assessment Last Done: 11/13/24 19:21
ED-Male Genitourinary Assessment Last Done: 11/13/24 19:21
--- NOTE | 2024-11-13 20:04 | HPS.HSE ---
Family Physician
-
Family Physician: Nik Dumont
Chief Complaint
-
Nausea
History of Present Illness
This is a 64-year-old male with past medical history significant for CHF with preserved EF, hypertension, CKD 4, insulin-dependent diabetes, hyperlipidemia was recently admitted to the hospital with pneumonia, influenza, CHF exacerbation and
discharged on Lasix with a weight of 180 presenting to the emergency department with nausea.
Patient reported that he has been followed with nephrology for recurrent CHF in the setting of his worsening CKD. Diuresis has resulted in increasing BUN/creatinine. We discussed with his physician today. He reported 1 day of nausea with
decreased p.o. intake but otherwise denies any chest pain, shortness of breath, dyspnea on exertion. Based on his symptoms and a history of recurrent CHF with some resistance to diuresis and history of cardiorenal patient was referred to ED for
initiation of dialysis.
He also complains of bilateral flank and lower abdominal discomfort that was intermittent. Denies any fevers or chills.
In the emergency department he was afebrile, blood pressure was 134/100 with a pulse of 73 was satting 97% on room air. ECG showed normal sinus rhythm at a rate of 71 no ischemia. No hyperacute T waves.
CBC was unremarkable with his baseline hemoglobin from 9.0. His electrolytes were notable for a potassium of 5.8 and a bicarb of 10. BUN was 136, creatinine was 5.3. Alk phos was borderline elevated.
He received temporizing measures with IV calcium and Lokelma in the ED
Medical History
Past Medical History
Past Medical History: Reports CHF (preserved EF), HTN, Hypercholesterolemia, IDDM and Renal Failure (CKD 4)
Additional Past Medical History:
DUANE
Past Surgical History: Reports Orthopedic
Social History
Tobacco: Non-smoker
Alcohol: Occasional
Drug: None
Personal: Single
Living: With Family
Employment: Not Employed
Family History
Family History: Not pertinent
Allergies / Home Medications
Allergies reflects when Allergies were last updated in [facility].
Home Medications with original date entered in [facility]
Allergy/Medication List:
Allergies
Allergy/AdvReac Type Severity Reaction Status Date / Time
No Known Allergies Allergy Verified 11/13/24 16:40
Home Medications
bupropion HCl 150 mg tablet,12 hr sustained-release (Wellbutrin SR) 150 mg PO BID Depression 11/11/23
lorazepam 1 mg tablet 1 mg PO TID Anxiety 11/11/23
gabapentin 300 mg capsule 300 mg PO BID pain 07/09/24
acetaminophen 500 mg tablet (Tylenol Extra Strength) 1,000 mg PO Q6HPRN PRN mild pain 09/30/24
sodium zirconium cyclosilicate 10 gram oral powder packet (Lokelma) 10 g PO MOFR to lower potassium levels 10/02/24
carvedilol 25 mg tablet 25 mg PO BID Essential HTN #60 tabs 10/06/24
hydralazine 50 mg tablet 75 mg (1.5 x 50 mg) PO TID Heart disease/condition 30 days #135 tabs 10/06/24
insulin lispro protamine-lispro 100 unit/mL (75-25) subcutaneous pen (Humalog Mix 75-25 KwikPen) 6 unit (0.06 mL) SC BID Diabetes #15 mL 10/23/24
metolazone 2.5 mg tablet 2.5 mg PO DAILY 11/13/24
torsemide 20 mg tablet 40 mg PO BID 11/13/24
Review of Systems
-
History Source: Patient
Constitutional: Reports No Symptoms
EENT: Reports No Symptoms
Respiratory: Reports No Symptoms
Cardiac: Reports No Symptoms
Abdomen/GI: Reports Nausea
: Reports Flank Pain
Musculoskeletal: Reports No Symptoms
Skin: Reports No Symptoms
Neurological: Reports No Symptoms
Endocrine: Reports No Symptoms
Hematologic/Lymphatic: Reports No Symptoms
Physical Exam
Vital Signs
Vital Signs
Temp Pulse Resp BP Pulse Ox
97.4 F 73 15 134/109 98
11/13/24 16:36 11/13/24 19:17 11/13/24 19:17 11/13/24 19:16 11/13/24 19:17
Physical Exam
General: No Apparent Distress and Conversant
HEENT: NormoCephalic, Anicteric, Moist mucous membranes and Atraumatic
Respiratory: Clear
Cardiac: S1/S2 and Regular Rhythm
Breast: Deferred by me
GI: Soft, Non Tender and Non Distended
Rectal: Deferred by Provider
Genito-urinary: No costovertebral tender
Musculoskeletal: No Clubbing, No Cyanosis, Edema, Left Lower Extremity (Trace) and Edema, Right Lower Extremity (Trace)
Neuro: AO x 3 and Nonfocal/grossly intact
Psych: Calm
Laboratory Results
-
11/13/24 17:09
11/13/24 17:09
Laboratory Results
Total Bilirubin 0.4 mg/dl (0.2-1.3) 11/13/24 17:09
AST 28 U/L (17-59) 11/13/24 17:09
ALT 53 U/L (0-50) H 11/13/24 17:09
Alkaline Phosphatase 135 U/L (38-126) H 11/13/24 17:09
Lipase 124 U/L (23-300) 11/13/24 17:09
Data Reviewed
-
Medical Tests (Nuc Med, Echo, EKG etc): Image Personally Visualized and interpreted
Lab Data: Labs Reviewed by me
Old Records: Reviewed
Impression/Plan
-
IMPRESSION:
64-year-old with history of diabetes, hypertension, congestive heart failure, CKD with progressive renal dysfunction, and with symptomatic renal failure with nausea failure to thrive, recurrent CHF exacerbations and worsening renal function. He is
nauseated today but otherwise in no acute distress. Found to have a potassium of 5.8 and a bicarb of 10.
PLAN:
PLAN:
Renal Failure - Cr 5.3, K 5.8, bicarb 10. BUN 136
- admit to telemetry
- s/p lokelma and IV ca gluc
- continue home lokelma regimen
- acidemia noted, plan for HD in am
- IR consult for tunnelled dialysis catheter
- nephrology consult
- avoid nephroltoxins.
CHF Exacerbation - no signs of acute exacerbation
- salt restriction
- 48 oz fluid restriction
- continue coreg and hydralzine
- continue torsemide and metolazone for now
NIDDM
- continue 70/30 5 bid with sliding scale insulin
DVT PPX - heparin sq
Code status - full code
[2024-11-13] MEDS: LOKELMA 10 GRAM PO (20:13)
[2024-11-13] MEDS: CALCIUM GLUCONATE 1000 MG IV (20:13)
[2024-11-13 21:32] LABS: Urine Albumin Negative (Neg - Trace); Urine Bilirubin Negative (Negative); Urine Character Clear (Clear); Urine Color Yellow; Urine Glucose Negative (Negative); Urine Ketone 1+ (Negative); Urine Leukocyte 2+ (Negative); Urine Nitrite Negative (Negative); Urine Occult Blood 2+ (Negative); Urine Urobilinogen Negative (Neg - 1+)
[2024-11-13 22:02] LABS: Urine Bacteria Few (Negative); Urine Red Blood Cell 21-25 /HPF (0-2)
[2024-11-13] MEDS: APRESOLINE 75 MG PO (22:27)
[2024-11-13] MEDS: ATIVAN 1 MG PO (22:30)
[2024-11-13 22:43] LABS: Glucose - Point of Care 147 mg/dl (70-99)
[2024-11-14] VITALS (12 sets, daily range): BP systolic 81–184; BP diastolic 65–93; BMI 21.9
[2024-11-14] MEDS: HEPARIN 5000 UNITS SC ×4 (00:20→23:19)
[2024-11-14] MEDS: ZOFRAN 4 MG IV (06:26)
[2024-11-14 07:59] LABS: Glucose - Point of Care 119 mg/dl (70-99)
[2024-11-14 08:07] LABS: INR 1.18; PT 15.3 Sec (11.4-14.6)
[2024-11-14] MEDS: NOVOLOG FLEXPEN-LOW RESISTANCE SC (08:33)
[2024-11-14 08:42] LABS: Calcium 8.4 mg/dl (8.4-10.2); Carbon Dioxide 10 mmol/L (22-30); Chloride 115 mmol/L (98-107); Estimated Creatinine Clearance 16 ml/min; Glucose 118 mg/dl (70-99); Potassium 5.3 mmol/L (3.5-5.1); Sodium 142 mmol/L (135-145)
[2024-11-14] MEDS: NEURONTIN 300 MG PO ×2 (08:44→20:08)
[2024-11-14] MEDS: ZAROXOLYN 2.5 MG PO (08:45)
[2024-11-14] MEDS: WELLBUTRIN SR (12 hour sustained release) 150 MG PO ×2 (08:45→20:08)
[2024-11-14] MEDS: COREG 25 MG PO ×2 (08:46→20:07)
[2024-11-14] MEDS: APRESOLINE 75 MG PO ×3 (08:46→22:09)
[2024-11-14] MEDS: ATIVAN 1 MG PO ×3 (08:47→22:08)
[2024-11-14] MEDS: DEMADEX 40 MG PO ×2 (08:48→15:50)
[2024-11-14 08:56] LABS: Blood Urea Nitrogen 133 mg/dl (9-20)
--- NOTE | 2024-11-14 09:18 | W.CON.NEPH ---
Consultation
-
Date/Time Consultation Requested: 11/13/2024 7:00 PM
Date/Time Consultation Performed: 11/14/2024 9:15 AM
Requesting Provider: Dr. Barry
Performing Provider: Dr. Pascual
Reason for Consultation: Acute kidney injury/CKD stage IV/metabolic acidosis
Medical History
-
Chief Complaint: Acute kidney injury/hyperkalemia/metabolic acidosis
History of Present Illness:
The patient is a 64-year-old male with chronic kidney disease (stage 4 3.7-4) s/p biopsy confirmed Diabetic nephropathy. He has hypertension which has been controlled on the combinations of his carvedilol and hydralazine. He has longstanding
diabetes maintained chronically on insulin and has microvascular complications including diabetic neuropathy, nephropathy. He was recently in the hospital from September 30 to October 07 with acute kidney injury and volume overload. He was diuresed
at that time and his creatinine had stabilized in the low 3 range. Unfortunately in the week after discharge he rapidly gained all the weight back despite attempts to increase diuretic dosing. Ultimately he had return to the emergency room because
of the severe swelling and was admitted. His creatinine was noted to be elevated again at 3.4 representing acute kidney injury in late September 2024 to early October. He also had associated pneumonia influenza. He was seen by our nephrology
office yesterday with associated nausea decreased p.o. intake and failure to thrive. He was brought into the emergency room last evening to initiate dialysis given his symptomatic uremia with BUN of 133 and worsening renal failure with creatinine
up to 5.3 for initiation of hemodialysis.
Past Medical History
DM II, biopsy-proven diabetic nephropathy
Hypertension
CKD 4 (3.7)
Lumbar DDD
Peripheral Neuropathy
Anxiety
Depression
Heart failure preserved ejection fraction
COVID 07/2024
Past Surgical History: Other (Lumbar discectomy with fusion Cholecystectomy Left foot 4th and 5th metatarsal amputation)
Social History
Tobacco: Non-Smoker
Alcohol: None
Drug: None
Family History
no CKD
Family History: Not Pertinent
Allergies / Home Medications
Allergy/AdvReac Type Severity Reaction Status Date / Time
No Known Allergies Allergy Verified 11/13/24 16:40
�Medication �Instructions �Recorded �Confirmed �Type
bupropion HCl 150 mg tablet,12 hr 150 mg PO BID Depression 11/11/23 11/13/24 History
sustained-release (Wellbutrin SR)
lorazepam 1 mg tablet 1 mg PO TID Anxiety 11/11/23 11/13/24 History
gabapentin 300 mg capsule 300 mg PO BID pain 07/09/24 11/13/24 History
acetaminophen 500 mg tablet 1,000 mg PO Q6HPRN PRN mild pain 09/30/24 11/13/24 History
(Tylenol Extra Strength)
sodium zirconium cyclosilicate 10 10 g PO MOFR to lower potassium 10/02/24 11/13/24 History
gram oral powder packet (Lokelma) levels
carvedilol 25 mg tablet 25 mg PO BID Essential HTN #60 tabs 10/06/24 11/13/24 Rx
hydralazine 50 mg tablet 75 mg (1.5 x 50 mg) PO TID Heart 10/06/24 11/13/24 Rx
disease/condition 30 days #135 tabs
insulin lispro protamine-lispro 6 unit (0.06 mL) SC BID Diabetes 10/23/24 11/13/24 Rx
100 unit/mL (75-25) subcutaneous #15 mL
pen (Humalog Mix 75-25 KwikPen)
metolazone 2.5 mg tablet 2.5 mg PO DAILY 11/13/24 11/13/24 History
torsemide 20 mg tablet 40 mg PO BID 11/13/24 11/13/24 History
Review of Systems
-
History Source: Patient
All other systems: Negative unless noted
Constitutional: Fatigue
EENT: No Symptoms
Respiratory: No Symptoms
Cardiac: No Symptoms
: No Symptoms
Musculoskeletal: No Symptoms
Skin: No Symptoms
Neurological: No Symptoms
Endocrine: No Symptoms
Hematologic/Lymphatic: No Symptoms
Physical Exam
Vital Signs
Vital Signs
Temp Pulse Resp BP Pulse Ox
97.6 F 83 18 152/72 97
11/14/24 08:00 11/14/24 08:00 11/14/24 08:00 11/14/24 08:00 11/14/24 08:00
Lab Results
11/13/24 17:09
11/14/24 07:42
WBC 6.3 10^3/uL (4.8-10.8) 11/13/24 17:09
RBC 2.91 10^6/uL (4.70-6.10) L 11/13/24 17:09
Hgb 8.9 g/dL (13.0-18.0) L 11/13/24 17:09
Hct 27.7 % (39.0-52.0) L 11/13/24 17:09
Plt Count 179 10^3/uL (130-400) 11/13/24 17:09
Sodium 142 mmol/L (135-145) 11/14/24 07:42
Potassium 5.3 mmol/L (3.5-5.1) H 11/14/24 07:42
Chloride 115 mmol/L (98-107) H 11/14/24 07:42
Carbon Dioxide 10 mmol/L (22-30) L* 11/14/24 07:42
BUN 133 mg/dl (9-20) H* 11/14/24 07:42
Creatinine 5.2 mg/dL (0.7-1.3) H* 11/14/24 07:42
eGFR 11.70 11/14/24 07:42
Glucose 118 mg/dl (70-99) H 11/14/24 07:42
Calcium 8.4 mg/dl (8.4-10.2) 11/14/24 07:42
Albumin 3.8 g/dl (3.5-5.0) 11/13/24 17:09
Physical Exam
General: No Apparent Distress and Conversant, no acute distress nontoxic in appearance
HEENT: NormoCephalic, Anicteric, Moist mucous membranes and Atraumatic
Respiratory: Clear but decreased breath sounds towards the bases
Cardiac: S1/S2 and Regular Rhythm
Breast: Deferred by me
GI: Soft, Non Tender and Non Distended, no hepatosplenomegaly, positive bowel sound
Rectal: Deferred by Provider
Genito-urinary: No costovertebral tender
Musculoskeletal: No Clubbing, No Cyanosis, Edema, Left Lower Extremity (Trace) and Edema, Right Lower Extremity (Trace)
Neuro: AO x 3 and Nonfocal/grossly intact, no asterixis
Psych: Calm, appropriate
Vascular: +1 radial and pedal pulses
Data Reviewed
-
Radiology: Image Personally Visualized and interpreted (Will personally review chest x-ray following catheter placement)
Labs: Labs Reviewed by me (BMP CBC)
Old Records: Reviewed (Acute previous nephrology consult during admission for acute kidney injury and CHF from October 17, 2024)
Assessment/Plan
-
64-year-old male with chronic kidney disease s/p biopsy confirmed Diabetic nephropathy. Admitted with symptomatic uremia and acute on chronic renal failure with associated metabolic acidosis and hyperkalemia
impression:
IVY
Uremia (symptomatic)
CKD4, baseline 3.0
Anasarca.
Diabetic nephropathy. Biopsy-proven
Hypertension.
Metabolic acidosis
Hyperkalemia
Anemia of chronic disease.
Plan.
Dialysis catheter to be placed today
Dialysis orders have been provide
Appropriate dietary and fluid restrictions to be ordered
Hemodialysis to be initiated today
Repeat dialysis tomorrow
Maintain antihypertensives for blood pressure
Diuretics to be continued for now but will likely be discontinued at discharge
HARVINDER to be provided for anemia
[2024-11-14] MEDS: ANCEF 10 IV (10:06)
--- NOTE | 2024-11-14 10:22 | W.PN.HOSP.TC ---
Today's Communication/Plan
-
HD cath and HD today
AM labs
Assessment / Plan
Assessment / Plan
Assessment:
IVY on CKD stage 4
- now progressive to ESRD
- continue diuretics for Anasarca
- s/p tunnelled cath placement 11/14; HD to start today
- dietary/fluid restrictions in place
- HARVINDER for anemia CKD
- case supervisor following for HD setup outpatient
Acute on chronic HFpEF
- continue diuretics for Anasarca; eventually discontinue diuretics as HD starts
- Coreg/Hydralazine
Diabetic nephropathy
- on Gabapentin
Hyperkalemia
- stop Lokelma
- K treatment with HD
NIDDM
- continue 75/25 bid with sliding scale insulin
Nephrotic range proteinuria
Positive proteinase 3 antibodies
Essential hypertension
- Coreg/Hydralazine
Chronic anemia from CKD
- HARVINDER per Renal
hx of Left foot osteomyelitis status post fourth and fifth digit amputation
Anxiety
- TID Ativan
DVT ppx: SC Heparin
Code: Full
Anticipated Discharge: > 48 hours
Subjective/Interval History
-
Date of Service: November 14, 2024
admitted with volume overload and HD initiation
s/p permacath placement
for HD start today
Objective Data
-
Labs:
Laboratory Results
11/14/24
07:42
PT 15.3 H
INR 1.18
Sodium 142
Potassium 5.3 H
Chloride 115 H
Carbon Dioxide 10 L*
BUN 133 H*
Creatinine 5.2 H*
Glucose 118 H
Calcium 8.4
Vital Signs:
Vital Signs
Temp Pulse Resp BP Pulse Ox
98.2 F 81 14 163/68 99
11/14/24 09:24 11/14/24 09:24 11/14/24 09:24 11/14/24 09:24 11/14/24 09:24
Physical Exam
-
General: No Apparent Distress
Hematologic / Lymphatic: Lymphadenopathy
Data Reviewed
-
Total Time Spent with Patient (in minutes): 42
Labs: Labs Reviewed by me
[2024-11-14] MEDS: LOKELMA 10 GRAM PO (11:06)
[2024-11-14 11:28] LABS: Hepatitis B Surface Antigen Negative (Negative)
[2024-11-14 11:45] LABS: Hepatitis B Surface Antibody Negative
[2024-11-14 11:53] LABS: Glucose - Point of Care 198 mg/dl (70-99)
[2024-11-14] MEDS: NOVOLOG FLEXPEN-LOW RESISTANCE 1 UNITS SC ×2 (12:13→17:26)
[2024-11-14] MEDS: MANNITOL 25% 12.5 GRAMS IV ×2 (13:11→14:30)
[2024-11-14] MEDS: RETACRIT 10000 UNITS IV (13:12)
--- NOTE | 2024-11-14 15:04 | W.PN.NEPH.HD ---
Assessment
-
Patient seen on first dialysis treatment
Low QB provided
Hepatitis serologies obtained
UF 1.5 kg as tolerated for volume overload
Systolic blood pressure stable at 166 at current UF
HD will be performed tomorrow as well, orders provided
Progress Note - Hemodialysis
-
Date of Service: November 14, 2024
Duration: 30 minutes and 2 hours
Potassium Bath: 2
Calcium Bath: 2.5
Opti-Dialyzer: 160
Ultrafiltration: Other (1.5kg)
Blood Flow: 400
Dialysate Flow: 600
Heparin: none
EPO: 10K
--- NOTE | 2024-11-14 15:14 | CM ---
Addendum entered by Viviana Goncalves 11/14/24 15:40:
real estate development manager reached out to [facility] and spoke with Humphrey and faxed all clinicals to [phone], showcase maker requested 3rd shift Sun, showcase maker also spoke with Tami at [facility] in [place] to inform her
that patient would like 3rd shift Sun if available.
Plan; New HD [facility] in [place], referral sent to [facility].
Original Note:
real estate development manager reviewed patient's chart and met with patient and patient lives with his brother in a multilevel home, patient is independent with adl's and has a cane for ambulation, if necessary, patient is now for possible HD, options reviewed with
patient and patient has selected [facility] in [place] a [facility] facility, referral sent to [facility], patient is requesting Sun afternoon shift.
PCP: Nik Dumont
Pharmacy: [facility] in [place].
Plan; Home new HD.
[2024-11-14] MEDS: NOVOLOG MIX 70/30 FLEXPEN 5 UNITS SC ×2 (15:51→22:09)
[2024-11-14] MEDS: HEPARIN 3900 UNITS INTRACATH (16:13)
[2024-11-14 17:13] LABS: Glucose - Point of Care 178 mg/dl (70-99)
[2024-11-14 21:34] LABS: Glucose - Point of Care 147 mg/dl (70-99)
--- NOTE | 2024-11-14 23:45 | PTCARENOTE ---
Alvino texted House Provider, Neda Lara, about pt's SBP 170s-180s despite evening cardiac medications. No new orders at this time, per provider.
[2024-11-15 03:11] VITALS: BP 165/72
[2024-11-15 06:00] VITALS: BMI 20.9
[2024-11-15 07:31] LABS: Glucose - Point of Care 120 mg/dl (70-99)
[2024-11-15] MEDS: NOVOLOG FLEXPEN-LOW RESISTANCE SC (07:34)
[2024-11-15] MEDS: APRESOLINE 75 MG PO ×3 (07:35→22:55)
[2024-11-15] MEDS: DEMADEX 40 MG PO ×2 (07:37→16:42)
[2024-11-15] MEDS: NEURONTIN 300 MG PO ×2 (07:37→22:55)
[2024-11-15] MEDS: COREG 25 MG PO ×2 (07:37→22:54)
[2024-11-15] MEDS: ATIVAN 1 MG PO ×3 (07:37→22:54)
[2024-11-15] MEDS: WELLBUTRIN SR (12 hour sustained release) 150 MG PO ×2 (07:38→22:55)
[2024-11-15] MEDS: ZAROXOLYN 2.5 MG PO (07:38)
[2024-11-15] MEDS: HEPARIN 5000 UNITS SC ×3 (07:39→22:57)
[2024-11-15] MEDS: NOVOLOG MIX 70/30 FLEXPEN 5 UNITS SC (07:39)
[2024-11-15] MEDS: ZOFRAN 4 MG IV ×2 (07:40→20:50)
[2024-11-15 07:52] VITALS: BP 174/77
[2024-11-15 07:59] LABS: % Immature Granulocytes 0.2 % (0-0.5); % Lymphocytes 13.6 % (20.5-51.1); % Monocytes 12.6 % (1.7-9.3); % Neutrophils 58.6 % (42.2-75.2); Absolute Basophils 0.1 10^3/uL (0-0.2); Absolute Eosinophils 0.7 10^3/uL (0-0.7); Absolute Lymphocytes 0.7 10^3/uL (1.2-3.4); Absolute Monocytes 0.6 10^3/uL (0.1-0.6); Absolute Neutrophils 2.9 10^3/uL (1.4-6.5); Hematocrit 26.8 % (39.0-52.0); Hemoglobin 9.1 g/dL (13.0-18.0); Mean Corpuscular Hgb 30.4 pg (27.0-31.0); Mean Corpuscular Volume 89.6 fL (80.0-94.0); Nucleated Red Blood Cells % 0 % (-); Platelet Count 185 10^3/uL (130-400); Red Blood Cell Count 2.99 10^6/uL (4.70-6.10); Red Cell Dist. Width 15.5 % (11.5-14.5); White Blood Cell Count 4.9 10^3/uL (4.8-10.8)
[2024-11-15 08:06] LABS: Blood Urea Nitrogen 88 mg/dl (9-20); Calcium 8.4 mg/dl (8.4-10.2); Carbon Dioxide 20 mmol/L (22-30); Chloride 107 mmol/L (98-107); Estimated Creatinine Clearance 21 ml/min; Glucose 120 mg/dl (70-99); Iron 116 ug/dl (49-181); Phosphorus 6.5 mg/dl (2.5-4.5); Potassium 3.7 mmol/L (3.5-5.1); Sodium 140 mmol/L (135-145); eGFR 16.52
[2024-11-15 08:13] LABS: Percent Saturation 43 % (20-50); Total Iron Binding Capacity 267 ug/dl (261-462)
[2024-11-15 11:00] VITALS: BP 155/73
[2024-11-15 12:23] LABS: Glucose - Point of Care 154 mg/dl (70-99)
[2024-11-15] MEDS: NOVOLOG FLEXPEN-LOW RESISTANCE 300 UNITS SC (12:28)
[2024-11-15] MEDS: MANNITOL 25% 12.5 GRAMS IV ×2 (13:05→14:05)
--- NOTE | 2024-11-15 13:49 | W.PN.NEPH.HD ---
Assessment
-
Patient seen on hemodialysis
No complaints
Systolic blood pressure at 120 on current UF goal of 1 kg
Mannitol x 2 given
Plan will be for repeat HD tomorrow
Catheter functioning well via right IJ tunneled catheter
Progress Note - Hemodialysis
-
Date of Service: November 15, 2024
Duration: 30 minutes and 2 hours
Potassium Bath: 3
Calcium Bath: 2.5
Opti-Dialyzer: 160
Ultrafiltration: Other (1 kg as hemodynamically tolerated)
Blood Flow: 300
Dialysate Flow: 600
Heparin: None
EPO: None
--- NOTE | 2024-11-15 13:54 | W.PN.HOSP.TC ---
Today's Communication/Plan
-
HD per Nephrology
OP HD setup
Assessment / Plan
Assessment / Plan
Assessment:
IVY on CKD stage 4
- now progressive to ESRD
- continue diuretics for Anasarca
- s/p tunnelled cath placement 11/14
- continue HD per Nephrology
- dietary/fluid restrictions in place
- HARVINDER for anemia CKD
- pillowcase cutter following for HD setup outpatient
Acute on chronic HFpEF
- continue diuretics for Anasarca; eventually discontinue diuretics as HD starts
- Coreg/Hydralazine
Diabetic nephropathy
- on Gabapentin
Hyperkalemia
- stop home Lokelma
- K treatment with HD
NIDDM
- continue 75/25 bid with sliding scale insulin
Nephrotic range proteinuria
Positive proteinase 3 antibodies
Essential hypertension
- Coreg/Hydralazine
Chronic anemia from CKD
- HARVINDER per Renal
hx of Left foot osteomyelitis status post fourth and fifth digit amputation
Anxiety
- TID Ativan
DVT ppx: SC Heparin
Code: Full
Anticipated Discharge: > 48 hours
Subjective/Interval History
-
Date of Service: November 15, 2024
on HD tolerating well, no complaints
Objective Data
-
Labs:
Laboratory Results
11/15/24
06:57
WBC 4.9
Hgb 9.1 L
Hct 26.8 L
Plt Count 185
Sodium 140
Potassium 3.7 D
Chloride 107
Carbon Dioxide 20 L
BUN 88 H
Creatinine 3.9 H
Glucose 120 H
Calcium 8.4
Vital Signs:
Vital Signs
Temp Pulse Resp BP Pulse Ox
98.2 F 73 16 155/73 98
11/15/24 07:52 11/15/24 11:00 11/15/24 11:00 11/15/24 11:00 11/15/24 11:00
I&O
11/14/24 11/15/24 11/16/24
06:59 06:59 06:59
Intake Total 1175 / 1175
Balance 1175 / 1175
Physical Exam
-
General: No Apparent Distress
HEENT: Normocephalic and Atraumatic
Respiratory: Clear to Auscultation; Negative Wheezes
Cardiac: Regular Rhythm and S1/S2
GI: Soft
Neuro: AO x 3
Hematologic / Lymphatic: No Lymphadenopathy
Psych: Calm
Data Reviewed
-
Total Time Spent with Patient (in minutes): 41
Labs: Labs Reviewed by me
--- NOTE | 2024-11-15 14:31 | CM ---
account manager employee benefits faxed all clinicals to [facility] for approval yesterday, H&P, Labs, Consultations, and progress notes.
Plan; Waiting on a determination from [facility] on HD at [facility] in [place], patient is looking for 3rd shift, Sun.
[2024-11-15] MEDS: HEPARIN 4000 UNITS INTRACATH (15:01)
[2024-11-15 16:09] LABS: Glucose - Point of Care 156 mg/dl (70-99)
[2024-11-15] MEDS: NOVOLOG FLEXPEN-LOW RESISTANCE 1 UNITS SC (16:43)
[2024-11-15 17:34] VITALS: BP 177/87
[2024-11-15] MEDS: NEURONTIN PO (20:50)
[2024-11-15] MEDS: COREG PO (20:50)
[2024-11-15] MEDS: WELLBUTRIN SR (12 hour sustained release) PO (20:51)
[2024-11-15 21:07] VITALS: BP 174/84
[2024-11-15] MEDS: COMPAZINE 10 MG IV (21:42)
[2024-11-15 22:16] LABS: Glucose - Point of Care 155 mg/dl (70-99)
[2024-11-15] MEDS: NOVOLOG MIX 70/30 FLEXPEN SC (22:45)
[2024-11-15] MEDS: BENADRYL 25 MG IV (22:49)
[2024-11-15] MEDS: TYLENOL 1000 MG PO (22:55)
[2024-11-15 23:34] VITALS: BP 187/88
[2024-11-16 05:47] VITALS: BMI 20.6
[2024-11-16 07:00] VITALS: BP 178/91
[2024-11-16 07:34] LABS: Glucose - Point of Care 120 mg/dl (70-99)
[2024-11-16] MEDS: NOVOLOG FLEXPEN-LOW RESISTANCE SC ×3 (08:34→18:44)
[2024-11-16] MEDS: ATIVAN 1 MG PO ×3 (08:35→23:38)
[2024-11-16] MEDS: NOVOLOG MIX 70/30 FLEXPEN 5 UNITS SC ×2 (08:36→23:31)
[2024-11-16 09:17] LABS: Hematocrit 29.6 % (39.0-52.0)
[2024-11-16] MEDS: RETACRIT 4000 UNITS IV (09:44)
[2024-11-16 09:49] LABS: Blood Urea Nitrogen 64 mg/dl (9-20); Calcium 8.9 mg/dl (8.4-10.2); Carbon Dioxide 27 mmol/L (22-30); Chloride 100 mmol/L (98-107); Estimated Creatinine Clearance 25 ml/min; Glucose 184 mg/dl (70-99); Potassium 3.8 mmol/L (3.5-5.1); Sodium 137 mmol/L (135-145); eGFR 20.94
--- NOTE | 2024-11-16 11:17 | W.PN.NEPH.HD ---
Assessment
-
Patient seen on HD
sbp 156 at current u./f
next HD sunday
catheter with good function
Progress Note - Hemodialysis
-
Date of Service: November 16, 2024
Duration: 45 minutes and 2 hours
Potassium Bath: 3
Calcium Bath: 2.5
Opti-Dialyzer: 160
Ultrafiltration: Other (1.5kg)
Blood Flow: 400
Dialysate Flow: 600
Heparin: none
EPO: 4000
[2024-11-16] MEDS: HEPARIN SC (12:03)
--- NOTE | 2024-11-16 12:03 | W.PN.HOSP.TC ---
Today's Communication/Plan
-
HD today
monitor BP
nausea control
Assessment / Plan
Assessment / Plan
Assessment:
IVY on CKD stage 4
- now progressive to ESRD
- continue diuretics for Anasarca
- s/p tunnelled cath placement 11/14
- continue HD per Nephrology
- dietary/fluid restrictions in place
- HARVINDER for anemia CKD
- case finishing machine adjuster following for HD setup outpatient (hep serologies and CXR ordered)
Acute on chronic HFpEF
- continue diuretics for Anasarca; eventually discontinue diuretics as HD starts
- Coreg/Hydralazine
Diabetic nephropathy
- on Gabapentin
Hyperkalemia
- stop home Lokelma
- K treatment with HD
NIDDM
- continue 75/25 bid with sliding scale insulin
Nephrotic range proteinuria
Positive proteinase 3 antibodies
Essential hypertension
- Coreg/Hydralazine
Chronic anemia from CKD
- HARVINDER per Renal
hx of Left foot osteomyelitis status post fourth and fifth digit amputation
Anxiety
- TID Ativan
DVT ppx: SC Heparin
Code: Full
Anticipated Discharge: > 48 hours
Subjective/Interval History
-
Date of Service: November 16, 2024
nausea post-HD yesterday
settled with Compazine
no abd pain
Objective Data
-
Labs:
Laboratory Results
11/16/24
09:06
Hgb 10.0 L
Hct 29.6 L
Sodium 137
Potassium 3.8
Chloride 100
Carbon Dioxide 27
BUN 64 H
Creatinine 3.2 H
Glucose 184 H
Calcium 8.9
Vital Signs:
Vital Signs
Temp Pulse Resp BP Pulse Ox
97.9 F 73 16 178/91 98
11/16/24 07:00 11/16/24 07:00 11/16/24 07:00 11/16/24 07:00 11/16/24 07:00
I&O
11/15/24 11/16/24 11/17/24
06:59 06:59 06:59
Intake Total 1175 / 1175 240 / 240
Balance 1175 / 1175 240 / 240
Physical Exam
-
General: No Apparent Distress
HEENT: Normocephalic and Atraumatic
Respiratory: Negative Wheezes
Cardiac: Regular Rhythm and S1/S2
GI: Soft and Nontender
Neuro: AO x 3
Hematologic / Lymphatic: No Lymphadenopathy
Psych: Calm
Data Reviewed
-
Total Time Spent with Patient (in minutes): 41
Labs: Labs Reviewed by me
[2024-11-16] MEDS: DEMADEX PO (12:04)
[2024-11-16] MEDS: APRESOLINE PO (12:04)
[2024-11-16] MEDS: HEPARIN 4000 UNITS INTRACATH (12:17)
[2024-11-16] MEDS: COREG 25 MG PO ×2 (12:30→23:36)
[2024-11-16] MEDS: NEURONTIN 300 MG PO ×2 (12:30→23:37)
[2024-11-16] MEDS: WELLBUTRIN SR (12 hour sustained release) 150 MG PO ×2 (12:36→23:44)
[2024-11-16] MEDS: ZAROXOLYN 2.5 MG PO (12:43)
[2024-11-16 13:41] LABS: Glucose - Point of Care 128 mg/dl (70-99)
[2024-11-16 15:00] VITALS: BP 151/78
[2024-11-16] MEDS: DEMADEX 40 MG PO (16:22)
[2024-11-16] MEDS: APRESOLINE 75 MG PO ×2 (16:23→23:37)
[2024-11-16 16:25] LABS: Glucose - Point of Care 143 mg/dl (70-99)
[2024-11-16] MEDS: HEPARIN 5000 UNITS SC ×2 (16:27→23:39)
[2024-11-16] MEDS: TYLENOL 1000 MG PO (18:34)
[2024-11-16 21:56] LABS: Glucose - Point of Care 124 mg/dl (70-99)
[2024-11-16 23:47] VITALS: BP 160/76
[2024-11-17 05:45] VITALS: BMI 19.8
[2024-11-17 07:00] VITALS: BP 156/74
[2024-11-17 07:34] LABS: Glucose - Point of Care 126 mg/dl (70-99)
[2024-11-17 08:45] LABS: Hematocrit 29.7 % (39.0-52.0); Hemoglobin 9.7 g/dL (13.0-18.0); Mean Corp Hgb Conc. 32.7 g/dL (33.0-37.0); Mean Corpuscular Hgb 29.9 pg (27.0-31.0); Mean Corpuscular Volume 91.7 fL (80.0-94.0); Mean Platelet Volume 9.5 fL (7.4-10.4); Platelet Count 185 10^3/uL (130-400); Red Blood Cell Count 3.24 10^6/uL (4.70-6.10); Red Cell Dist. Width 14.8 % (11.5-14.5); White Blood Cell Count 5.1 10^3/uL (4.8-10.8)
[2024-11-17] MEDS: NOVOLOG FLEXPEN-LOW RESISTANCE SC ×3 (08:45→17:09)
[2024-11-17] MEDS: NOVOLOG MIX 70/30 FLEXPEN 5 UNITS SC (08:49)
[2024-11-17] MEDS: WELLBUTRIN SR (12 hour sustained release) 150 MG PO (08:50)
[2024-11-17] MEDS: ZAROXOLYN 2.5 MG PO (08:50)
[2024-11-17] MEDS: ATIVAN 1 MG PO ×2 (08:50→16:08)
[2024-11-17] MEDS: APRESOLINE 75 MG PO ×2 (08:50→16:07)
[2024-11-17] MEDS: NEURONTIN 300 MG PO (08:50)
[2024-11-17] MEDS: COREG 25 MG PO (08:50)
[2024-11-17] MEDS: DEMADEX 40 MG PO ×2 (08:50→16:08)
[2024-11-17] MEDS: HEPARIN 5000 UNITS SC ×2 (08:51→16:08)
[2024-11-17 09:18] LABS: Blood Urea Nitrogen 51 mg/dl (9-20); Calcium 8.7 mg/dl (8.4-10.2); Carbon Dioxide 27 mmol/L (22-30); Chloride 99 mmol/L (98-107); Estimated Creatinine Clearance 24 ml/min; Glucose 175 mg/dl (70-99); Potassium 4.1 mmol/L (3.5-5.1); Sodium 137 mmol/L (135-145); eGFR 20.94
--- NOTE | 2024-11-17 10:35 | W.PN.HOSP.TC ---
Today's Communication/Plan
-
HD next Sunday (inpatient)
Pt ok with either // or //Sun schedule. Cm aware
if HD setup confirmed today, he potentially could dc today, will d/w Nephrology
Assessment / Plan
Assessment / Plan
Assessment:
IVY on CKD stage 4
- now progressive to ESRD
- continue diuretics for Anasarca
- s/p tunnelled cath placement 11/14
- continue HD per Nephrology
- dietary/fluid restrictions in place
- HARVINDER for anemia CKD
- rn case management following for HD setup outpatient (hep serologies and CXR ordered)
Acute on chronic HFpEF
- continue diuretics for Anasarca; eventually discontinue diuretics as HD starts
- Coreg/Hydralazine
Diabetic nephropathy
- on Gabapentin
Hyperkalemia
- stop home Lokelma
- K treatment with HD
NIDDM
- continue 75/25 bid with sliding scale insulin
Nephrotic range proteinuria
Positive proteinase 3 antibodies
Essential hypertension
- Coreg/Hydralazine
Chronic anemia from CKD
- HARVINDER per Renal
hx of Left foot osteomyelitis status post fourth and fifth digit amputation
Anxiety
- TID Ativan
DVT ppx: SC Heparin
Code: Full
Anticipated Discharge: 24 - 48 hours
Subjective/Interval History
-
Date of Service: November 17, 2024
no acute complaints
feels better after sequence of HD initation
Objective Data
-
Labs:
Laboratory Results
11/17/24
08:15
WBC 5.1
Hgb 9.7 L
Hct 29.7 L
Plt Count 185
Sodium 137
Potassium 4.1
Chloride 99
Carbon Dioxide 27
BUN 51 H
Creatinine 3.2 H
Glucose 175 H
Calcium 8.7
Vital Signs:
Vital Signs
Temp Pulse Resp BP Pulse Ox
97.8 F 73 18 156/74 98
11/17/24 07:00 11/17/24 07:00 11/17/24 07:00 11/17/24 07:00 11/17/24 07:00
I&O
11/16/24 11/17/24 11/18/24
06:59 06:59 06:59
Intake Total 240 / 240 480 / 480
Balance 240 / 240 480 / 480
Physical Exam
-
General: No Apparent Distress
HEENT: Normocephalic and Atraumatic
Respiratory: Negative Wheezes
Cardiac: Regular Rhythm and S1/S2
GI: Soft and Nontender
Genito-urinary: No Costovertebral Tender
Musculoskeletal: No Edema
Neuro: AO x 3
Hematologic / Lymphatic: No Lymphadenopathy
Psych: Calm
Data Reviewed
-
Total Time Spent with Patient (in minutes): 42
Labs: Labs Reviewed by me
[2024-11-17] MEDS: LOKELMA PO (10:48)
[2024-11-17 11:20] LABS: Glucose - Point of Care 127 mg/dl (70-99)
[2024-11-17 15:00] VITALS: BP 171/84
--- NOTE | 2024-11-17 15:23 | CM ---
Addendum entered by Joana Gonzalez 11/17/24 15:24:
Pt will call his son for ride home
Original Note:
CM reviewed pt with Dr Barry- pt ready for dc
Pt accepted at [facility] MWF 3:45pm chair time
Bedside update to pt
IMM verbally reviewed, copy provided
Schedule letter provided and copy placed on chart
[facility] referral sent to [facility] via [facility]
VN order on chart
DC paperwork and VN order faxed to [facility]
Discharge Disposition- home with new HD [facility] and [facility] VN
--- NOTE | 2024-11-17 15:25 | W.DS.TRANS ---
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
-
Discharge Instructions:
Discharge Diagnosis/Procedures progressive CKD to ESRD. Tunneled cath placement
11/14
Diet 2 Gram Sodium,Diabetic, Carb Controlled
Additional Diets 2 gram potassium restriction
Activity As tolerated
Bathing Restrictions None
Other Services VN
Instructions:
Stand-Alone Forms:
Changes to Home Medications: No
Discharge Medications:
DC Medications w/original date entered in [employer]
bupropion HCl 150 mg tablet,12 hr sustained-release (Wellbutrin SR) 150 mg PO BID Depression 11/11/23
lorazepam 1 mg tablet 1 mg PO TID Anxiety 11/11/23
gabapentin 300 mg capsule 300 mg PO BID pain 07/09/24
acetaminophen 500 mg tablet (Tylenol Extra Strength) 1,000 mg PO Q6HPRN PRN mild pain 09/30/24
carvedilol 25 mg tablet 25 mg PO BID Essential HTN #60 tabs 10/06/24
hydralazine 50 mg tablet 75 mg (1.5 x 50 mg) PO TID Heart disease/condition 30 days #135 tabs 10/06/24
insulin lispro protamine-lispro 100 unit/mL (75-25) subcutaneous pen (Humalog Mix 75-25 KwikPen) 6 unit (0.06 mL) SC BID Diabetes #15 mL 10/23/24
metolazone 2.5 mg tablet 2.5 mg PO DAILY 11/13/24
torsemide 20 mg tablet 40 mg PO BID 11/13/24
Home Medication Changes
Pending Results: No
Total time spent discharging patient (in min): 41
--- NOTE | 2024-11-17 15:48 | W.PN.NEPH.PH ---
Today's Communication / Plan
-
dc
Assessment/Plan
-
64-year-old male with chronic kidney disease s/p biopsy confirmed Diabetic nephropathy. Admitted with symptomatic uremia and acute on chronic renal failure with associated metabolic acidosis and hyperkalemia
impression:
IVY
Uremia (symptomatic)
CKD4, baseline 3.0
Anasarca.
Diabetic nephropathy. Biopsy-proven
Hypertension.
Metabolic acidosis
Hyperkalemia
Anemia of chronic disease.
Plan.
for dc
OP HD [facility] 3rd shift MWF
can continue torsemide
OP vascular AVF eval
-
-
Date of Service: November 17, 2024
CC / HPI / ROS
-
Chief Complaint:
ESRD
History of Present Illness:
doing well
tolerated HD Sunday
BP stable
nonoliguric
Review of Systems:
no CP/SOB
Labs
-
Labs:
WBC 5.1 10^3/uL (4.8-10.8) 11/17/24 08:15
RBC 3.24 10^6/uL (4.70-6.10) L 11/17/24 08:15
Hgb 9.7 g/dL (13.0-18.0) L 11/17/24 08:15
Hct 29.7 % (39.0-52.0) L 11/17/24 08:15
Plt Count 185 10^3/uL (130-400) 11/17/24 08:15
Sodium 137 mmol/L (135-145) 11/17/24 08:15
Potassium 4.1 mmol/L (3.5-5.1) 11/17/24 08:15
Chloride 99 mmol/L (98-107) 11/17/24 08:15
Carbon Dioxide 27 mmol/L (22-30) 11/17/24 08:15
BUN 51 mg/dl (9-20) H 11/17/24 08:15
Creatinine 3.2 mg/dL (0.7-1.3) H 11/17/24 08:15
eGFR 20.94 11/17/24 08:15
Glucose 175 mg/dl (70-99) H 11/17/24 08:15
Calcium 8.7 mg/dl (8.4-10.2) 11/17/24 08:15
Phosphorus 6.5 mg/dl (2.5-4.5) H 11/15/24 06:57
Albumin 3.8 g/dl (3.5-5.0) 11/13/24 17:09
Physical Exam
-
Vital Signs:
Vital Signs
Temp Pulse Resp BP Pulse Ox
97.8 F 73 18 156/74 98
11/17/24 07:00 11/17/24 07:00 11/17/24 07:00 11/17/24 07:00 11/17/24 07:00
Cardiovascular:: Regular rate and rhythm
Respiratory:: Bilateral: Coarse
Lung Excursion:: Normal
Abdomen:: Nontender and Soft
Bowel Sounds:: Normal
Extremity Edema:: None: Bilateral:
== END 2024-11-17 18:03 | disposition home health service (06) | DRG 291 ==
LOC: 4 WEST ACU 21:16
PROVIDERS: Emergency Medicine; Physician Assistant; Radiology Vascular & Interventional Radiology; Specialist; ADMITTING PHYSICIAN Internal Medicine; ATTENDING PHYSICIAN Internal Medicine; CONSULT PHYSICIAN Radiology Diagnostic Radiology; EMERGENCY PHYSICIAN Student in an Organized Health Care Education/Training Program; FAMILY PHYSICIAN Internal Medicine
PROC: 5A1D70Z Performance of Urinary Filtration, Intermittent, Less than 6 Hours Per Day (ICD-10-PCS; 2024-11-14)
PROC: 05HM33Z Insertion of Infusion Device into Right Internal Jugular Vein, Percutaneous Approach (ICD-10-PCS; 2024-11-14)
PROC: B5131ZA Fluoroscopy of Right Jugular Veins using Low Osmolar Contrast, Guidance (ICD-10-PCS; 2024-11-14)
DX: I13.2 Hypertensive heart and chronic kidney disease with heart failure and with stage 5 chronic kidney disease, or end stage renal disease (principal); I50.33 Acute on chronic diastolic (congestive) heart failure; N18.6 End stage renal disease; E87.20 Acidosis, unspecified; N17.9 Acute kidney failure, unspecified; Z99.2 Dependence on renal dialysis; E87.5 Hyperkalemia; E11.22 Type 2 diabetes mellitus with diabetic chronic kidney disease; E11.40 Type 2 diabetes mellitus with diabetic neuropathy, unspecified; F41.9 Anxiety disorder, unspecified; F32.A Depression, unspecified; D63.1 Anemia in chronic kidney disease; R62.7 Adult failure to thrive; Z79.899 Other long term (current) drug therapy; Z86.16 Personal history of COVID-19; M51.360 Other intervertebral disc degeneration, lumbar region with discogenic back pain only; E78.00 Pure hypercholesterolemia, unspecified
CPT/HCPCS: 36558; 71046; 76937; 77001; 80048; 80053; 81003; 81015; 82728; 82962; 83540; 83550; 83690; 84100; 85014; 85018; 85025; 85027; 85610; 86706; 86850; 86900; 86901; 87086; 87340; 93005; 96374; 99152; 99153; 99285; C1750; G0257; Q5106

== ENCOUNTER → 2024-12-05 08:07 | Outpatient (REF) | payer MEDICARE, OTHER, SELFPAY | LOC: RAD 08:07 | PROVIDERS: ATTENDING PHYSICIAN Surgery Vascular Surgery; FAMILY PHYSICIAN Internal Medicine | DX: N18.6 End stage renal disease (principal); Z01.818 Encounter for other preprocedural examination | CPT/HCPCS: 93985 ==

== ENCOUNTER 2024-12-23 12:05 | Day surgery (SDC) | payer MEDICARE, OTHER, SELFPAY ==
[2024-12-23] MEDS: PERIDEX 0.12% ORAL RINSE 15 ML PO (14:21)
[2024-12-23] MEDS: NSS 500 IV (14:21)
[2024-12-23] MEDS: BACTROBAN NASAL 1 GRAM NASAL (14:22)
[2024-12-23 14:30] LABS: Glucose - Point of Care 105 mg/dl (70-99)
[2024-12-23 14:31] LABS: Hematocrit 37.1 % (39.0-52.0); Hemoglobin 12.3 g/dL (13.0-18.0); Mean Corp Hgb Conc. 33.2 g/dL (33.0-37.0); Mean Corpuscular Hgb 30.7 pg (27.0-31.0); Mean Corpuscular Volume 92.5 fL (80.0-94.0); Mean Platelet Volume 10.1 fL (7.4-10.4); Platelet Count 129 10^3/uL (130-400); Red Blood Cell Count 4.01 10^6/uL (4.70-6.10); Red Cell Dist. Width 14.3 % (11.5-14.5); White Blood Cell Count 5.5 10^3/uL (4.8-10.8)
[2024-12-23 14:36] LABS: PT 13.5 Sec (11.4-14.6)
[2024-12-23 14:40] LABS: Blood Urea Nitrogen 44 mg/dl (9-20); Calcium 8.7 mg/dl (8.4-10.2); Carbon Dioxide 30 mmol/L (22-30); Chloride 102 mmol/L (98-107); Glucose 116 mg/dl (70-99); Potassium 4.7 mmol/L (3.5-5.1); Sodium 141 mmol/L (135-145); eGFR 18.81
--- NOTE | 2024-12-23 14:54 | PTCARENOTE ---
1445: Dr. Asif made aware of pts preop bp's. No new orders.
--- NOTE | 2024-12-23 16:11 | W.SUR.PREOP ---
Pre-Operative Surgical Note
-
I have examined this patient prior to the performance of the scheduled procedure.
The patient's condition is unchanged from the time of the current History and
Physical and the patient is able to undergo the scheduled procedure.
[2024-12-23 16:41] VITALS: BMI 21.5
--- NOTE | 2024-12-23 18:26 | OR.RPT ---
Operative Report
Operative Report
Date of Operation: 12/23/2024
Pre Op Diagnosis: End-stage renal disease requiring hemodialysis
Post Op Diagnosis: End-stage renal disease requiring hemodialysis
Procedure: Creation of left upper extremity brachiocephalic arteriovenous fistula
Surgeon: oNé Montenegro III, MD
[employer] Travel Club Counselor: Suni Howell MD PGY1
Anesthesia: General
Complications: None
Estimated Blood Loss: 10 cc
History and Indications for Procedure: 64-year-old male with end-stage renal disease requiring hemodialysis. He was in need of more permanent hemodialysis access.
Procedure in Detail: Luis Meier was correctly identified and brought to the operating room. He was placed supine on the operating table with the left arm abducted 90 degrees on a side table. After adequate induction of anesthesia I performed
intraoperative ultrasound on the veins of the left arm. I identified and measured the cephalic vein from the antecubital fossa to the shoulder. The vein was of adequate quality and diameter for AV fistula creation. The left brachial artery was
also identified in the upper arm and proximal forearm. His radial artery origin was above the elbow and this was identified under ultrasound guidance as well. An appropriate skin incision was marked approximately 1 fingerbreadth below the skin
crease at the antecubital fossa. The left hand and arm were circumferentially prepped and draped in usual sterile fashion. Preoperative antibiotics were administered. A timeout procedure was performed with the nursing and anesthesia staff
confirming the patient's identity as well as the nature and laterality of the procedure.
A transverse skin incision was made in the proximal forearm through the previously placed skin aimee. A combination of electrocautery and sharp dissection was used to expose the cephalic vein. Branches were ligated and divided between silk ties and
metal clips. The radial artery was identified. The brachial artery was then exposed using sharp dissection. Proximal and distal control was obtained on the brachial artery with vessel loops. The distal end of the cephalic vein was ligated with a
silk tie and then transected with scissors. The vein was flushed with heparinized saline solution. The vein flushed easily with no resistance. A bulldog clamp was placed on the vein. The brachial artery vessel loops were secured. An arteriotomy
was made with an 11 blade and extended slightly proximally and distally with Tse scissors. The proximal and distal brachial artery were flushed with heparinized saline solution. An end-to-side anastomosis was created using a running 7-0 Prolene
suture. Prior to the completion of the anastomosis the brachial artery was allowed to temporarily forward bleed and backbleed. The area under the anastomosis was flushed with heparinized saline solution to remove any potential thrombus or debris.
The anastomosis was completed. The bulldog was removed from the vein. The proximal vessel loop was released first. After several heartbeats the distal vessel loop was released. There was an easily palpable thrill in the cephalic vein along its
course in the upper arm. The anastomotic suture line was closely inspected and hemostasis was achieved. Hemostasis was achieved in the wound bed. The wound was irrigated with saline solution. Local anesthesia was infiltrated into the skin and
subcutaneous tissue around the wound. The wound was closed in layers. Skin glue was applied.
At the conclusion of the case the patient had an easily palpable thrill in the cephalic vein in the upper arm. The patient had a palpable radial pulse at the left wrist.
The patient tolerated the procedure well and was taken to the recovery room in good condition.
Attestation: I was present and responsible for the entire procedure
Signed:
Noé Montenegro III, MD
[facility] Vascular Surgery
[phone] (xqyy)
[2024-12-23 18:32] VITALS: BP 171/93; BP 192/103
[2024-12-23 18:41] LABS: Glucose - Point of Care 92 mg/dl (70-99)
[2024-12-23 18:45] VITALS: BP 172/95
[2024-12-23 18:58] VITALS: BP 162/76
[2024-12-23 19:10] VITALS: BP 157/89
[2024-12-23 19:25] VITALS: BP 149/100
== END 2024-12-23 19:41 | disposition home or self-care (01) ==
LOC: CATH 12:05
PROVIDERS: ATTENDING PHYSICIAN Surgery Vascular Surgery; OTHER PHYSICIAN Internal Medicine Cardiovascular Disease; PRIMARYCARE PHYSICIAN Internal Medicine
DX: I13.2 Hypertensive heart and chronic kidney disease with heart failure and with stage 5 chronic kidney disease, or end stage renal disease (principal); I50.32 Chronic diastolic (congestive) heart failure; N18.6 End stage renal disease; E11.22 Type 2 diabetes mellitus with diabetic chronic kidney disease; Z99.2 Dependence on renal dialysis; E87.5 Hyperkalemia; Z79.4 Long term (current) use of insulin
CPT/HCPCS: 36821; 80048; 82962; 85027; 85610; 85730

== ENCOUNTER → 2025-02-18 07:09 | Outpatient (REF) | payer MEDICARE, OTHER, SELFPAY | LOC: HWRAD 07:09 | PROVIDERS: ATTENDING PHYSICIAN Physician Assistant; FAMILY PHYSICIAN Internal Medicine | DX: N18.6 End stage renal disease (principal); I25.700 Atherosclerosis of coronary artery bypass graft(s), unspecified, with unstable angina pectoris; Z01.818 Encounter for other preprocedural examination | CPT/HCPCS: 93990 ==

== ENCOUNTER → 2025-03-10 14:47 | Outpatient (REF) | payer MEDICARE, OTHER, SELFPAY | LOC: RAD 14:47 | PROVIDERS: ATTENDING PHYSICIAN Surgery Vascular Surgery | DX: N18.4 Chronic kidney disease, stage 4 (severe) (principal); I77.0 Arteriovenous fistula, acquired | CPT/HCPCS: 93990 ==

== ENCOUNTER → 2025-04-02 08:04 | Outpatient (REF) | payer MEDICARE, OTHER, SELFPAY | LOC: DHVS 08:04 | PROVIDERS: ATTENDING PHYSICIAN Surgery Vascular Surgery; FAMILY PHYSICIAN Internal Medicine | DX: Z01.818 Encounter for other preprocedural examination (principal); I77.89 Other specified disorders of arteries and arterioles; N18.6 End stage renal disease; I77.0 Arteriovenous fistula, acquired; I87.2 Venous insufficiency (chronic) (peripheral) | CPT/HCPCS: 93970 ==

== ENCOUNTER 2025-04-21 11:41 | Day surgery (SDC) | payer MEDICARE, OTHER, SELFPAY ==
[2025-04-21] VITALS (9 sets, daily range): BP systolic 9–202; BP diastolic 89–98; BMI 26.4
[2025-04-21 12:10] LABS: Hematocrit 35.7 % (39.0-52.0); Hemoglobin 11.6 g/dL (13.0-18.0); Mean Corp Hgb Conc. 32.5 g/dL (33.0-37.0); Mean Corpuscular Volume 97.3 fL (80.0-94.0); Platelet Count 173 10^3/uL (130-400); Red Cell Dist. Width 15.1 % (11.5-14.5)
[2025-04-21 12:21] LABS: INR 1.00; PT 13.5 Sec (11.4-14.6)
[2025-04-21 12:22] LABS: APTT 26.0 Sec (23.4-35.0)
[2025-04-21] MEDS: NSS 500 IV (13:12)
[2025-04-21 13:43] LABS: Blood Urea Nitrogen 52 mg/dl (9-20); Calcium 8.2 mg/dl (8.4-10.2); Carbon Dioxide 26 mmol/L (22-30); Chloride 103 mmol/L (98-107); Estimated Creatinine Clearance 15 ml/min; Glucose 138 mg/dl (70-99); Potassium 5.5 mmol/L (3.5-5.1); Sodium 141 mmol/L (135-145); eGFR 10.47
--- NOTE | 2025-04-21 16:59 | W.IMMPOSTOP ---
Surgical Immed Post Op Note
-
Primary Surgeon: Noé Montenegro III
Assisting Surgeon: Theodore Jansen
Pre-op Diagnosis: Steal syndrome
Post-op Diagnosis: Steal syndrome
Procedure Performed: Diagnostic LUE angio, R fem access
Anesthesia Type: Sedation/Local
Specimen / Cultures: None
Estimated Blood Loss: 5 cc
Complications: None
Operative Findings: Steal syndrome from fistula. R PALLET RECTIFIER access. Reversible with compression of fistula.
[2025-04-21 18:08] LABS: Glucose - Point of Care 134 mg/dl (70-99)
--- NOTE | 2025-04-21 18:28 | OR.RPT ---
Operative Report
Operative Report
Date of Operation: 04/21/2025
Pre Op Diagnosis:
1. End-stage renal disease requiring hemodialysis
2. Left upper extremity brachiocephalic arteriovenous fistula
3. Suspected steal, left upper extremity
Post Op Diagnosis:
1. End-stage renal disease requiring hemodialysis
2. Left upper extremity brachiocephalic arteriovenous fistula
3. Suspected steal, left upper extremity
Procedure:
1. Selective catheterization of left subclavian and axillary artery from right common femoral artery access
2. Diagnostic arch aortogram
3. Diagnostic left upper extremity arteriogram
4. Ultrasound-guided percutaneous access of the right common femoral artery
Surgeon: Noé Montenegro III, MD
Customer Logistics Manager: Theodore Jansen MD PGY2
Anesthesia: Sedation/local
Complications: None
Estimated Blood Loss: Less than 10 cc
History and Indications for Procedure: 64-year-old male with end-stage renal disease requiring hemodialysis. He has a functioning left upper extremity brachiocephalic arteriovenous fistula. He presented with symptoms concerning for steal in the
left upper extremity. He was brought to the operating room for arteriogram and further endovascular interrogation.
Procedure in Detail: Luis Meier was correctly identified and placed supine on the operating table with his left arm abducted on an armboard. After adequate induction of anesthesia his bilateral groins were prepped and draped in the usual sterile
fashion. A timeout procedure was performed with the nursing and anesthesia staff confirming the patient's identity as well as nature and laterality of the procedure.
Using ultrasound guidance we identified the right common femoral artery. Under fluoroscopy we identified the superior and inferior aspect of the right femoral head. Under direct ultrasound we then infiltrated local anesthesia into the proposed
puncture site. Using a micropuncture needle under ultrasound guidance we accessed the right common femoral artery and upsized to a 5 Martiniquais sheath over a Bentson wire. The Bentson wire was navigated through the abdominal aorta and into the
thoracic aorta followed by the aortic arch and ascending aorta. A marker pigtail catheter was placed. A diagnostic arch aortogram was performed which demonstrated the following:
The ascending aorta, aortic arch and proximal descending thoracic aorta were widely patent. The innominate, left common carotid, left subclavian artery were widely patent with no stenosis identified.
Using an H1 catheter and Glidewire we selected the left subclavian artery. The wire was advanced through the subclavian and into the axillary artery. The catheter was tracked over the wire and the remainder of the left upper extremity arteriogram
was performed.
The left axillary artery was widely patent with no stenosis identified. The left brachial artery was widely patent with no stenosis identified. The left upper extremity brachiocephalic fistula was widely patent with brisk flow. The arteriovenous
anastomosis was widely patent with no stenosis identified. No venous outflow stenosis was identified. At baseline there was limited arterial flow distal to the arteriovenous anastomosis and flow reversal in the more distal brachial artery was
identified on arteriogram. The radial artery arose from the brachial artery proximal to the arteriovenous anastomosis. With compression of the fistula there was improvement in distal arterial flow and we could now visualize the radial artery,
ulnar artery and interosseous artery in the forearm. With compression of the fistula, radial artery and ulnar artery flow was identified to the wrist and into the hand. There was a complete palmar arch. We could not visualize this without
compression of the fistula.
Satisfied with this diagnostic result we then concluded the procedure. The H1 catheter was removed from the 5 Martiniquais sheath. A single Pro-glide closure device was used to obtain hemostasis in the right femoral artery access. Direct manual
pressure was held over the access site after Pro-glide closure for an additional 5 minutes. Complete hemostasis was achieved. A sterile dressing was applied.
Attestation: I was present and responsible for the entire procedure
Signed:
Noé Montenegro III, MD
Vascular Surgery
[facility]
== END 2025-04-21 20:05 | disposition home or self-care (01) ==
LOC: CATH 11:41
PROVIDERS: ATTENDING PHYSICIAN Surgery Vascular Surgery; PRIMARYCARE PHYSICIAN Internal Medicine
DX: N18.6 End stage renal disease (principal); Z99.2 Dependence on renal dialysis; I13.2 Hypertensive heart and chronic kidney disease with heart failure and with stage 5 chronic kidney disease, or end stage renal disease; E11.22 Type 2 diabetes mellitus with diabetic chronic kidney disease
CPT/HCPCS: 36215; 75710; 80048; 82962; 85027; 85610; 85730; C1760; C1769; C1894; Q9967

== ENCOUNTER 2025-05-05 11:18 | Inpatient (IN) | payer MEDICARE, OTHER, SELFPAY ==
[2025-05-05] VITALS (25 sets, daily range): BP systolic 135–196; BP diastolic 74–99; BMI 24.0
[2025-05-05 12:06] LABS: Glucose - Point of Care 114 mg/dl (70-99)
[2025-05-05] MEDS: NSS 500 IV (12:10)
[2025-05-05] MEDS: PERIDEX 0.12% ORAL RINSE 15 ML PO (12:10)
[2025-05-05] MEDS: BACTROBAN NASAL 1 GRAM NASAL (12:10)
[2025-05-05 13:13] LABS: Hematocrit 37.0 % (39.0-52.0); Hemoglobin 12.1 g/dL (13.0-18.0); Mean Corp Hgb Conc. 32.7 g/dL (33.0-37.0); Mean Corpuscular Volume 95.9 fL (80.0-94.0); Platelet Count 163 10^3/uL (130-400); Red Cell Dist. Width 14.1 % (11.5-14.5)
[2025-05-05 13:29] LABS: APTT 25.8 Sec (23.4-35.0); INR 1.03; PT 13.8 Sec (11.4-14.6)
[2025-05-05 13:48] LABS: Blood Urea Nitrogen 54 mg/dl (9-20); Calcium 8.5 mg/dl (8.4-10.2); Carbon Dioxide 26 mmol/L (22-30); Chloride 104 mmol/L (98-107); Estimated Creatinine Clearance 14 ml/min; Glucose 120 mg/dl (70-99); Potassium 5.4 mmol/L (3.5-5.1); Sodium 141 mmol/L (135-145); eGFR 10.70
[2025-05-05] MEDS: DILAUDID 0.5 MG IV ×3 (20:52→21:24)
--- NOTE | 2025-05-05 20:52 | W.SUR.POST ---
Surgical Immediate Post Op
Note
Pre Op Diagnosis: LUE Steal Syndrome
Post Op Diagnosis: LUE Steal Syndrome
Procedure Performed: LUE distal revascularization and interval ligation (DRIL) procedure
Primary Surgeon: Noé Montenegro MD
Secondary Surgeons: Lake Lawler MD PhD
Anesthesia: Per Anesthesia
Estimated Blood Loss: 20 cc
Fluids: Per Anesthesia
Drains/Shunts: None
Specimens/Cultures: None
Doppler/Duplex/Angio (Y/N): Doppler confirmed signals post-op
Complications: None
Operative Findings: RLE GSV harvest and bypass of LUE fistula from mid-upper arm brachial vein to distal brachial (distal to fistula origin) and ligation of short segment brachial artery between new anastomosis and previous fistula. Palpable radial
and ulnar pulses post-op.
[2025-05-05 20:59] LABS: Glucose - Point of Care 128 mg/dl (70-99)
--- NOTE | 2025-05-05 20:59 | OR.RPT ---
Operative Report
Operative Report
Date of Operation: 05/05/2025
Pre Op Diagnosis:
1. 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
2. End-stage renal disease requiring hemodialysis
Post Op Diagnosis:
1. 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
2. End-stage renal disease requiring hemodialysis
Procedure:
1. Distal revascularization and interval ligation, left upper extremity, using reversed right great saphenous vein
2. [place] of right great saphenous vein
Surgeon: Noé Montenegro III, MD
Title Search Manager: Lake Lawler MD PhD PGY-[id number]
Anesthesia: General
Complications: None
Estimated Blood Loss: 20 cc
History and Indications for Procedure: 64-year-old male with left upper extremity brachiocephalic arteriovenous fistula. He has symptoms and imaging findings consistent with arterial steal related to the left upper extremity arteriovenous access.
I recommended distal revascularization and interval ligation.
Procedure in Detail: Luis vu was correctly identified and placed supine on the operating table. After adequate induction of anesthesia his left upper extremity was abducted 90 degrees on the side table. The right great saphenous vein was imaged
with ultrasound from the saphenofemoral junction to the distal thigh. The vein course was marked at the skin level. I marked the location of the brachial artery with ultrasound guidance in the medial upper arm. I marked the location of the
arteriovenous anastomosis as well as the distal brachial artery, distal to the arteriovenous anastomosis in the proximal forearm. The left upper extremity was prepped circumferentially and draped in the usual sterile fashion. The right groin the
right groin and thigh were prepped and draped in the usual sterile fashion. He received preoperative antibiotics. A timeout procedure was performed with the nursing and anesthesia staff confirming the patient's identity as well as the nature and
laterality of the procedure.
We began by harvesting the right great saphenous vein. An incision was made from the groin to the distal thigh over the previous skin aimee. Electrocautery and sharp dissection were used to expose the great saphenous vein along its entire course.
All branches were ligated and divided between silk ties and metal clips. The vein was of adequate quality and caliber to be used for the DRIL conduit.
Approximately 15 cm proximal to the arteriovenous anastomosis in the left upper extremity I made an incision over the medial upper arm. Electrocautery and sharp dissection were used to expose the brachial artery at this level. Proximal and distal
control was obtained with vessel loops.
In the proximal forearm I made an incision over the previous skin aimee. Sharp dissection and electrocautery were used to expose the brachial artery distal to the arteriovenous anastomosis. Proximal and distal control was obtained with vessel loops.
I turned my attention back to the right great saphenous vein. 2 clips were placed on the distal vein in the thigh. The vein was transected. A right angle clamp was placed on the great saphenous vein at the saphenofemoral junction. The vein was
then dilated with heparinized saline solution. All branch points were closely inspected. The vein was marked for proper orientation. The vein was transected at the saphenofemoral junction. The saphenofemoral junction stump was controlled with a
silk suture ligature.
The patient was systemically heparinized. The proximal and distal vessel loops on the proximal brachial artery in the medial upper arm were secured. An 11 blade was used to make an arteriotomy and this was extended proximally and distally with
Tse scissors. The great saphenous vein was brought to the field and reversed. The end of the vein was spatulated appropriately and an end-to-side anastomosis was created to the brachial artery using a running 7-0 Prolene suture. At the
conclusion of the anastomosis the vessel loops were released. There was excellent pulsatile bleeding from the distal end of the vein conduit. The vein was then carefully tunneled between the proximal and distal arm incision using a tunneling
clamp and taking great care to keep proper orientation. While the vein was pressurized it was marked for the distal anastomosis length. A vascular clamp was placed on the proximal vein conduit just off the proximal anastomosis. The distal end of
the vein was shortened appropriately. The vessel loops on the distal brachial artery were secured. An arteriotomy was made with an 11 blade and extended proximally and distally with Tse scissors. The distal end of the vein conduit was
spatulated appropriately and an end-to-side anastomosis was created using a running 7-0 Prolene suture. Prior to the completion of this anastomosis the vein conduit was allowed to temporarily forward bleed and then the area under the anastomosis
was flushed with heparinized saline solution. The anastomosis was completed and then the proximal clamp as well as the vessel loops were released. There was an excellent pulse in the vein conduit. There was an easily palpable pulse in the artery
distal to the anastomosis in the forearm.
The brachial artery proximal to the distal anastomosis was then doubly ligated with two 2-0 silk ties. All suture lines were inspected for hemostasis which was achieved. At the conclusion of the case the patient had a palpable thrill in the left
upper extremity brachiocephalic fistula. There was an easily palpable pulse in the DRIL vein conduit. There was a palpable pulse in the arterial outflow from the distal anastomosis. The patient had return of a palpable ulnar pulse at the wrist
along with a biphasic Doppler signal which clearly augmented with compression and release of the DRIL vein conduit.
Satisfied with this result we concluded the procedure. Each wound was irrigated with saline solution. Hemostasis was achieved in each wound. Protamine was administered. All wounds were closed in layers. Sterile dressings were applied.
The patient tolerated the procedure well was taken to the recovery room in good condition.
Attestation: I was present and responsible for the entire procedure
Signed:
Noé Montenegro III, MD
Vascular Surgery
[facility]
[2025-05-05] MEDS: ROXICODONE 5 MG PO (21:25)
--- NOTE | 2025-05-05 22:00 | PTCARENOTE ---
Patient received from PACU accompanied by RN and tech. Transferred and admitted to ICU bed 3361, placed on CM. See assessment expert charted on worklist flowsheet. BBS clear. SR on CM. States that LUE pain has improved 3/10, denies need for pain
medication at this time. Left upper arm and left lower arm incisions with dermabond and sutures CDI. Right groin with gauze and tegaderm dressing in place, small amount of serosanguinous drainage on dressing. Good pulses x 4 extremities.
Neurovascular checks per order. BP is elevated, 180s/90s. Dr Montenegro notified per order. New orders received, Cardene gtt hung per order at 2.5mg, BP with good response. Bed in low and locked position, call petres within reach.
[2025-05-05 22:13] LABS: Glucose - Point of Care 154 mg/dl (70-99)
[2025-05-05] MEDS: CARDENE 200 IV (22:39)
[2025-05-05 22:55] LABS: Magnesium 2.2 mg/dl (1.6-2.3)
[2025-05-06] VITALS (31 sets, daily range): BP systolic 106–186; BP diastolic 72–127; BMI 23.9
--- NOTE | 2025-05-06 | PTCARENOTE ---
VSS. Essentially no change in patient's physical assessment. Patient appears to be sleeping comfortably when undisturbed with eyes closed, lying still, respirations non labored. No complaints offered.
[2025-05-06] MEDS: HEPARIN 5000 UNITS SC ×3 (00:34→16:32)
--- NOTE | 2025-05-06 04:45 | PTCARENOTE ---
Am labs drawn. VSS. Patient HNV during the night. He states that he does void although he is ESRD on HD. He currently denies the urge to void. Sensation now completely returned to left hand. Pulses and mobility intact. He states that he has slept
well t/o night. He is shifting his weight off his buttocks for comfort. He does not wish to be turned. No c/o pain. Cardene gtt was turned off at 0300 and has remained off at this time. Orders to keep SBP 140-160.
[2025-05-06 05:06] LABS: Hematocrit 34.3 % (39.0-52.0); Hemoglobin 11.6 g/dL (13.0-18.0); Mean Corp Hgb Conc. 33.8 g/dL (33.0-37.0); Mean Corpuscular Volume 94.0 fL (80.0-94.0); Platelet Count 150 10^3/uL (130-400); Red Cell Dist. Width 13.7 % (11.5-14.5)
[2025-05-06 05:22] LABS: APTT 26.1 Sec (23.4-35.0); INR 1.04; PT 13.9 Sec (11.4-14.6)
[2025-05-06 05:33] LABS: Blood Urea Nitrogen 63 mg/dl (9-20); Calcium 7.8 mg/dl (8.4-10.2); Carbon Dioxide 21 mmol/L (22-30); Chloride 108 mmol/L (98-107); Estimated Creatinine Clearance 15 ml/min; Glucose 184 mg/dl (70-99); Potassium 6.8 mmol/L (3.5-5.1); Sodium 139 mmol/L (135-145); eGFR 10.05
--- NOTE | 2025-05-06 05:53 | PTCARENOTE ---
Report given verbally to oncoming Linnea osuna RN. Questions answered.
[2025-05-06] MEDS: DEXTROSE 50% SYRINGE 25 GRAMS IV ×2 (06:33→10:31)
[2025-05-06] MEDS: NOVOLIN R 10 UNITS IV ×2 (06:33→10:31)
[2025-05-06] MEDS: SODIUM BICARBONATE 50 MEQ IV (06:38)
[2025-05-06] MEDS: CALCIUM GLUCONATE 1000 MG IV ×2 (06:39→10:31)
[2025-05-06 06:44] LABS: Glucose - Point of Care 157 mg/dl (70-99)
--- NOTE | 2025-05-06 06:50 | CON.INTV ---
Consultation
Consultation Request
Date/Time Consultation Requested: 05/06
Date/Time Consultation Performed: 05/06
Reason for Consultation: Critical care
Medical History
-
History of Present Illness:
History obtained from the patient and reviewing outpatient records. Mr. Barry is a 64-year-old male with history of end-stage renal disease, diabetes, hypertension, history of heart failure who is status post DRIL procedure left upper extremity
due to left brachiocephalic upper extremity AV fistula steal phenomenon. His right great saphenous vein was harvested. He did well postoperatively. He did require Cardene therapy for hypertension but currently is off. We are asked to help from
critical care standpoint
Presently he is without shortness of breath, chest pain. He denies any arm pain. He is on room air, conversant
Past Medical History
Past Medical History: None (See above)
Past Surgical History: None (See above)
Social History
Tobacco: Non-smoker
Alcohol: Occasional
Drug: None
Employment: Retired
Family History
Family History: Reviewed & Not Pertinent
Allergies / Home Medications
Allergies
Allergy/AdvReac Type Severity Reaction Status Date / Time
No Known Allergies Allergy Verified 05/05/25 12:23
Home Medications
�Medication �Instructions �Recorded �Confirmed �Last Taken �Type
bupropion HCl 150 mg tablet,12 hr 150 mg PO BID Depression 11/11/23 05/05/25 05/04/25 22:00 History
sustained-release (Wellbutrin SR) 150 MG
lorazepam 1 mg tablet 1 mg PO TID Anxiety 11/11/23 05/05/25 05/04/25 22:00 History
Held on 04/21/25. 1 MG
Instructions: Resume on
04/22/25.
gabapentin 300 mg capsule 300 mg PO BID Neurological 07/09/24 05/05/25 05/04/25 22:00 History
Condition 300 MG
acetaminophen 500 mg tablet 1,000 mg PO Q6HPRN PRN mild pain 09/30/24 05/05/25 05/03/25 History
(Tylenol Extra Strength) 1000 MG
torsemide 20 mg tablet 40 mg PO BID Fluid 11/13/24 05/05/25 05/04/25 18:00 History
Retention/Swelling 40 MG
cyclobenzaprine 10 mg tablet 10 mg PO PRN PRN prior to HD M-W-F 04/16/25 05/05/25 05/04/25 22:00 History
10 MG
Review of Systems
-
All other systems: Negative unless noted
Vitals / Labs / Diagnostic Testing
Vital Signs
Temp Pulse Resp BP Pulse Ox
96.9 F L 93 11 160/85 99
05/06/25 05:00 05/06/25 05:00 05/06/25 05:00 05/06/25 05:00 05/06/25 05:00
Lab Data
05/06/25 04:55
Laboratory Results
05/05/25 05/06/25
11:56 04:55
PT 13.8 13.9
INR 1.03 1.04
APTT 25.8 26.1
Diagnostic Testing:
Physical Exam
-
HEENT: Normocephalic, Anicteric and Other (Left upper extremity dressing/incision adequate. Radial pulse intact)
Cardiovascular: S1/S2, Regular Rhythm, Murmur (n), Rub (n) and Peripheral Edema (n)
Respiratory: Wheeze (n), Rales (n), Rhonchi (n) and Non-Labored Respirations (n)
GI: Soft, Non Distended and Non Tender
Neurology: Awake, Alert and No Motor Deficits
Skin: Good Color
General: Comfortable
Assessment
-
64-year-old male with history of end-stage renal disease with history of left brachiocephalic upper extremity AV fistula steal phenomena completed DRIL procedure 05/05. We are asked to help from critical care standpoint
S/p DRIL SHAD 05/05
Left upper extremity brachiocephalic steal phenomena
ESRD on HD Sunday/Sunday/Sunday
Hypertension
Diabetes
Hyperglycemia
Hyperkalemia
History of cholecystectomy
Lumbar discectomy
Left foot 4th and 5th metatarsal amputation
Plan/recommendations
At this time, patient is feeling well. Hypertension overnight noted, requiring Cardene drip, now off
Hyperkalemia noted, received treatment. Awaiting hemodialysis later today
Potassium is 6.8, decreased to 6.2
Awaiting dialysis
Moving forward
Continue with management per vascular surgery. Neurovascular checks will continue
Out of bed to chair, ambulate as able
treat hyperkalemia
Insulin, D25, calcium gluconate
Pending HD, anticipate discharge later today
EKG 05/05 with normal sinus rhythm
Reviewed with critical care nursing, respiratory care, pharmacy
[2025-05-06 07:25] LABS: Glucose - Point of Care 202 mg/dl (70-99)
[2025-05-06] MEDS: ZOFRAN 4 MG IV (07:40)
[2025-05-06 08:19] LABS: Glucose - Point of Care 126 mg/dl (70-99)
--- NOTE | 2025-05-06 08:29 | W.CON.NEPH ---
Consultation
-
Date/Time Consultation Requested: 05/06/2025 7:30 AM
Date/Time Consultation Performed: 05/06/2025 8:30 AM
Requesting Provider: Dr. Montenegro
Performing Provider: Dr. Pascual
Reason for Consultation: End-stage renal disease
Medical History
-
Chief Complaint: End-stage renal disease
History of Present Illness:
The patient is a 64-year-old male with ESRD( s/p biopsy confirmed Diabetic nephropathy) who dialyzes Sunday at [facility]. He was initiated on dialysis in November 2024. He is maintained on insulin for his diabetes .He has a
historyof hypertension which was controlled on the combinations of his carvedilol and hydralazine but is now maintained on just dialysis with dry weight reduction. He has longstanding diabetes maintained chronically on insulin and has microvascular
complications including diabetic neuropathy, nephropathy. He is maintained on bupropion for depression. He presented to the hospital yesterday for elective DRIL procedure of his left brachiocephalic upper extremity AV fistula steal phenomenon.
This was accomplished by harvesting of his right great saphenous vein. Nephrology was consulted for end-stage renal disease management
Past Medical History
DM II, biopsy-proven diabetic nephropathy
Hypertension
ESRD Sunday [facility]
Lumbar DDD
Peripheral Neuropathy
Anxiety
Depression
Heart failure preserved ejection fraction
COVID 07/2024
Past Surgical History: Other (Lumbar discectomy with fusion Cholecystectomy Left foot 4th and 5th metatarsal amputation)
Social History
Tobacco: Non-Smoker
Alcohol: None
Drug: None
Family History
no CKD
Family History: Not Pertinent
Allergies / Home Medications
Allergy/AdvReac Type Severity Reaction Status Date / Time
No Known Allergies Allergy Verified 05/05/25 12:23
�Medication �Instructions �Recorded �Confirmed �Type
bupropion HCl 150 mg tablet,12 hr 150 mg PO BID Depression 11/11/23 05/05/25 History
sustained-release (Wellbutrin SR)
lorazepam 1 mg tablet 1 mg PO TID Anxiety 11/11/23 05/05/25 History
Held on 04/21/25.
Instructions: Resume on
04/22/25.
gabapentin 300 mg capsule 300 mg PO BID Neurological 07/09/24 05/05/25 History
Condition
acetaminophen 500 mg tablet 1,000 mg PO Q6HPRN PRN mild pain 09/30/24 05/05/25 History
(Tylenol Extra Strength)
torsemide 20 mg tablet 40 mg PO BID Fluid 11/13/24 05/05/25 History
Retention/Swelling
cyclobenzaprine 10 mg tablet 10 mg PO PRN PRN prior to HD M-W-F 04/16/25 05/05/25 History
Review of Systems
-
History Source: Patient
All other systems: Negative unless noted
Physical Exam
Vital Signs
Vital Signs
Temp Pulse Resp BP Pulse Ox
96.9 F L 88 10 155/81 99
05/06/25 05:00 05/06/25 06:00 05/06/25 06:00 05/06/25 06:00 05/06/25 06:00
Lab Results
05/06/25 04:55
WBC 7.6 10^3/uL (4.8-10.8) 05/06/25 04:55
RBC 3.65 10^6/uL (4.70-6.10) L 05/06/25 04:55
Hgb 11.6 g/dL (13.0-18.0) L 05/06/25 04:55
Hct 34.3 % (39.0-52.0) L 05/06/25 04:55
Plt Count 150 10^3/uL (130-400) 05/06/25 04:55
Sodium 139 mmol/L (135-145) 05/06/25 04:55
Chloride 108 mmol/L (98-107) H 05/06/25 04:55
Carbon Dioxide 21 mmol/L (22-30) L 05/06/25 04:55
BUN 63 mg/dl (9-20) H 05/06/25 04:55
Creatinine 5.9 mg/dL (0.7-1.3) H* 05/06/25 04:55
eGFR 10.05 05/06/25 04:55
Glucose 184 mg/dl (70-99) H 05/06/25 04:55
Calcium 7.8 mg/dl (8.4-10.2) L 05/06/25 04:55
Phosphorus 5.6 mg/dl (2.5-4.5) H 05/05/25 11:56
Physical Exam
General: AOx3, Nontoxic , NAD
HEENT: PERRL, EOMI, Anicteric, Conjunctivae Clear, Ear/Nose Intact, Hearing Normal, Oropharynx Clear/Moist, Dentition Intact, Facial Symmetry, Neck Supple, Neck: Trachea Midline, No JVD and No Thyromegaly, no Bruits
Respiratory: Clear to auscultation bilaterally with normal lung exersion
Cardiac: S1/S2 and Regular Rate/Rhythm
Breast: Deferred by me
Abdomen: Soft, Nontender, Nondistended, Normal Bowel Sounds and No Hepatosplenomegaly
Rectal: Deferred by Provider
Genito-urinary: No Costovertebral Tenderness
Extremities: No Clubbing, No Cyanosis and No Edema
Skin: No Rash or open lesions
Neuro: Nonfocal/Grossly Intact, CN II-XII (Intact) and Strength (Musculoskeletal exam 5 out of 5 both upper and lower extremities)
Hematologic/Lymphatic: No Cervical Lymphadenopathy, No Submandibular Lymphadenopathy and No Supraclavicular Lymphadenopathy
Psych: Mood/afflect pleasant, Insight/judgement good and Appropriate
Vascular: plus 1 pedal and radial pulses
Vascular Access: AVF (Left brachiocephalic AV fistula: good thrill and bruit) and CVC
Data Reviewed
-
Radiology: Image Personally Visualized and interpreted (Chest x-ray personally reviewed on admission showed mild interstitial edema/right anterior chest wall CVC)
Medical Tests (Nuc Med, Echo etc): Other (EKG report personally reviewed showed sinus rhythm at 93 bpm)
Labs: Labs Reviewed by me ([facility])
Old Records: Reviewed (Reviewed previous nephrology records including admission and nephrology consultation from November 2024 when dialysis was initiated)
Assessment/Plan
-
64-year-old male with chronic kidney disease s/p biopsy confirmed Diabetic nephropathy. Admitted with symptomatic left upper extremity brachiocephalic AV fistula steal, status post DRIL procedure on 05/05/2025
impression:
Status post DRIL procedure of left upper extremity brachiocephalic AV fistula
ESRD Sunday at [facility]
Diabetes
Diabetic nephropathy. Biopsy-proven
Hypertension.
Hyperkalemia
Anemia of chronic disease.
Plan.
Plan for dialysis today orders provided
Will utilize dialysis catheter at this time
Hyperkalemia medically treated and then will receive dialysis later today
HARVINDER for anemia as needed
--- NOTE | 2025-05-06 08:41 | W.PN.VS ---
Today's Communication / Plan
-
Patient seen and examined at bedside with Dr. Camron Mcneil M.D., below plan reviewed with attending.
Assessment/Plan
-
Assessment: 64-year-old male POD #1 Distal revascularization and interval ligation, left upper extremity, using reversed right great saphenous vein. [place] of right great saphenous vein.
Plan:
Patient with hyperkalemia noted on a.m. labs, treated repeat potassium pending, requires HD today, nephrology following appreciate recommendations for HD management
Continue neurovascular checks
Out of bed to chair with progression ambulation as tolerated
Possible discharge late this afternoon after HD pending patient progression
Subjective Data
-
Date of Service: May 06, 2025
Patient seen examined bedside, offers no complaints. Reports well-managed postoperative pain at left upper extremity surgical sites. Denies nausea, vomiting, fever, and chills. Endorses vast improvement to left hand pain, paleness, and numbness.
Objective Data
-
Vital Signs
Temp Pulse Resp BP Pulse Ox
97.8 F 99 9 162/90 95
05/06/25 08:38 05/06/25 08:00 05/06/25 08:00 05/06/25 08:00 05/06/25 08:00
Intake and Output
05/05/25 05/06/25 05/07/25
06:59 06:59 06:59
Intake Total 273.0 / 273.0 240 / 240
Output Total 0 / 0 50 / 50
Balance 273.0 / 273.0 190 / 190
Intake:
Oral fluids 120 / 120 240 / 240
IV fluids (Total) 153.0 / 153.0
Cardene gtt 53.0 / 53.0
NSS 100 / 100
Output:
Urine, Voided 0 / 0 50 / 50
Lab Results
05/06/25 04:55
Calcium 7.8 mg/dl (8.4-10.2) L 05/06/25 04:55
Phosphorus 5.6 mg/dl (2.5-4.5) H 05/05/25 11:56
Magnesium 2.2 mg/dl (1.6-2.3) 05/05/25 11:56
Physical Exam
-
No apparent distress, resting in bed comfortably
No tachycardia
No dyspnea on room air
Left upper extremity surgical site clean, dry, and intact, Exofin glue well-approximated, no evidence of hematoma or edema, palpable thrill, left radial palpable pulse, left hand warm
Right groin vein harvest site clean, dry, and intact
[2025-05-06 09:51] LABS: Potassium 6.2 mmol/L (3.5-5.1)
[2025-05-06 10:45] LABS: Glucose - Point of Care 172 mg/dl (70-99)
[2025-05-06] MEDS: ATIVAN 1 MG PO (11:42)
[2025-05-06 11:51] LABS: Glucose - Point of Care 132 mg/dl (70-99)
--- NOTE | 2025-05-06 12:15 | CM ---
Addendum entered by Irma Edwards 05/06/25 12:27:
Is on HD with [facility] in [place] with chair time at 6:00 am on . On HD since November 2024.
Original Note:
Initial assessment completed with patient who lives with his brother in a 2 story home with B/B on , 1/2 bath on , 1 step to enter. [employer] patient was independent in ADL's and ambulation,drives. He does have a SPC and RW but no longer uses. No
in-home services. Does have a HC-POA. No service. PCP is Dr. Nik Dumont. Pharmacy is [facility] in [place]. Discharge POC: Anticipate home with no needs.
--- NOTE | 2025-05-06 12:38 | W.PN.NEPH.HD ---
Assessment
-
patient seen on HS
bp stable at current u/f
discharge after HD
utilizing catheter
Progress Note - Hemodialysis
-
Date of Service: May 06, 2025
Duration: 30 minutes and 3 hours
Potassium Bath: 2
Calcium Bath: 2.5
Opti-Dialyzer: 160
Ultrafiltration: Other (2kg)
Blood Flow: 400
Dialysate Flow: 600
Heparin: no
EPO: none
--- NOTE | 2025-05-06 13:12 | PTCARENOTE ---
Neurovascular checks WNL. On HD at this time. All assessments unchanged.
[2025-05-06 13:20] LABS: Glucose - Point of Care 139 mg/dl (70-99)
[2025-05-06] MEDS: HEPARIN 4300 UNITS INTRACATH (15:18)
--- NOTE | 2025-05-06 16:42 | PTCARENOTE ---
1 kg off per HD nurse. SHAD neurovascular check WNL. Palpable radial pulse. Ambulates with steady gait. Good appetite for breakfast and lunch
--- NOTE | 2025-05-06 19:00 | PTCARENOTE ---
Patient received awake and alert, sitting up in bed. No complaints offered, no pain. See loan expeditor charted on worklist flowsheet. Patient left arm incisions with dermabond, WDL. Right groin dressing with small amount of serosanguinous drainage.
All pulses palpable. BBS clear. SR with 1st degree AVB on CM. Bed in low and locked position, call peters within reach. BRP, gait steady. Patient anxious to go home. Vascular surgical team contacted for patient's discharge instructions. Received at
1919. Discharge instructions given to patient, verbalized understanding. No questions offered. Lines discontinued, monitor removed. Patient dressed self in street clothes. Belongings gathered including air pods, cell phone and eyeglasses. At 1954
patient discharged via wheelchair accompanied by RN to private vehicle.
--- NOTE | 2025-05-06 19:23 | W.[place]-PDMP ---
[place]PD[place]
-
Checked the [place]- Prescription Drug Monitoring Program website, no red flags identified; safe to proceed with prescription. Patient routinely prescribed lorazepam PRN for anxiety, instructed not to take while requiring narcotics. Provided PRN narcan
as well.
--- NOTE | 2025-05-06 19:40 | W.DS.TRANS ---
DC Summary - Dice Table Person
-
Discharge Instructions:
Sleep Apnea Risk Intermediate
Discharge Diagnosis/Procedures Distal revascularization and interval ligation,
left upper extremity, using reversed right great
saphenous vein. [place] of right great
saphenous vein.
Diet As tolerated
Activity No strenuous activity
Driving Restrictions Not until seen by your Dr
Bathing Restrictions OK to Shower
Instructions:
Stand-Alone Forms: Vascular Surg Discharge Instr
Changes to Home Medications: Yes
Discharge Medications:
DC Medications w/original date entered in [employer]
bupropion HCl 150 mg tablet,12 hr sustained-release (Wellbutrin SR) 150 mg PO BID Depression 11/11/23
lorazepam 1 mg tablet 1 mg PO TID Anxiety 11/11/23
Held on 05/06/25. Instructions: Do not take at same time as narcotic oxycodone, can resume once no longer requiring oxycodone for pain medication
gabapentin 300 mg capsule 300 mg PO BID Neurological Condition 07/09/24
acetaminophen 500 mg tablet (Tylenol Extra Strength) 1,000 mg PO Q6HPRN PRN mild pain 09/30/24
torsemide 20 mg tablet 40 mg PO BID Fluid Retention/Swelling 11/13/24
cyclobenzaprine 10 mg tablet 10 mg PO PRN PRN prior to HD M-W-F 04/16/25
naloxone 4 mg/actuation nasal spray (Narcan) 4 mg intranasal Q3M PRN opioid overdose #2 ea 05/06/25
oxycodone 5 mg tablet 5 mg PO Q8HPRN PRN moderate pain #6 tabs 05/06/25
Home Medication Changes
Held:
lorazepam 1 mg tablet 1 mg PO TID Anxiety 11/11/23
Held on 05/06/25. Instructions: Do not take at same time as narcotic oxycodone, can resume once no longer requiring oxycodone for pain medication
Started:
naloxone 4 mg/actuation nasal spray (Narcan) 4 mg intranasal Q3M PRN opioid overdose #2 ea 05/06/25
oxycodone 5 mg tablet 5 mg PO Q8HPRN PRN moderate pain #6 tabs 05/06/25
Pending Results: No
--- NOTE | 2025-05-08 09:26 | CM ---
Patient was discharged to home with no additional skilled services on 05/06/25 @ 7:40PM. Patient arranged for transport home.
--- NOTE | 2025-05-12 15:55 | W.DCSUMMARY ---
Discharge Summary
Discharge Data
Date of Admission: 05/05/25
Date of Discharge: 05/06/25
-
Pending Results: No
Hospital Course
Attending: Noé Montenegro III, MD
Consultants: Pulmonary medicine, nephrology
Allergies: NKDA
Procedure with date: Distal revascularization and interval ligation, left upper extremity, using reversed right great saphenous vein. [place] of right great saphenous vein. On 05/05/[address] Noé Montenegro III.
History of present illness: The patient is an 64-year-old male with multiple medical conditions including: End-stage renal disease, hypertension, peripheral neuropathy, anxiety, depression, heart failure, and diabetes. Patient presented on 05/06/2025
for scheduled procedure with Dr. Montenegro. Patient presented at baseline health with no reports of recent illness or trauma.
Hospital Course: Briefly, the patient underwent scheduled distal revascularization and interval ligation, left upper extremity, using reversed right great saphenous vein with harvest of right great saphenous vein, without complications, and
recovered in PACU. Following recovery phase one and two patient was transferred to intensive care unit per protocol for continued hemodynamic monitoring. [employer] Bag [employer]pper consulted to aid in medical management from a critical care perspective.
Nephrology consulted to aid in management of hemodialysis. POD #1 (05/06/2025) left upper extremity surgical site clean, dry, and intact with Exofin glue well-approximated. No evidence of hematoma or edema at the left upper extremity and all
surrounding compartments soft. Palpable thrill at left AV fistula with palpable left radial pulse and warm left hand. Patient noted to have elevated potassium the morning labs patient did not demonstrate signs of hyperkalemia, he was medically
treated for increased potassium and then initiated on hemodialysis. Patient tolerated hemodialysis without difficulty. Patient ambulated with no issue. Patient stable for discharge to home.
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 All instructions were given to the patient in both written and verbal form and the patient expressed understanding.
Discharge Plan
-
Patient Disposition: Home (Routine Discharge)
Discharge Diagnosis/Procedures: Distal revascularization and interval ligation, left upper extremity, using reversed right great saphenous vein. [place] of right great saphenous vein.
Condition: Good
Diet: As tolerated
Activity: No strenuous activity
Driving Restrictions: Not until seen by your Dr
Bathing Restrictions: OK to Shower
Stand Alone Forms: Vascular Surg Discharge Instr
Referrals:
Nik Dumont MD [Primary Care Provider, Internal Medicine]
Katherin Garcia CRNP [Specified Professional Personl, Vascular Surgery] - 05/21/25 10:00 am
Referral Note: Vascular surgery office follow-up
Prescriptions:
New
oxycodone 5 mg Tablet
5 mg PO Q8HPRN PRN (Reason: moderate pain) Qty: 6 0RF
naloxone [Narcan] 4 mg/actuation spray,non-aerosol
4 mg intranasal Q3M PRN (Reason: opioid overdose) Qty: 2 0RF
Continued
bupropion HCl [Wellbutrin SR] 150 mg Tablet Sustained-Release 12 Hr
150 mg PO BID
gabapentin 300 mg Capsule
300 mg PO BID
acetaminophen [Tylenol Extra Strength] 500 mg Tablet
1,000 mg PO Q6HPRN PRN (Reason: mild pain)
torsemide 20 mg tablet
40 mg PO BID
cyclobenzaprine 10 mg Tablet
10 mg PO PRN PRN (Reason: prior to )
Held
lorazepam 1 mg tablet
1 mg PO TID
Hold Instructions: Resume on 04/22/25.
Patient Comments:
Last filled 09/12/24 #270 for 90 days
Discharge Orders:
Discharge Patient (As Directed); Ordered 05/06/25
Ordered By: Adelaida Jara
Discharge Date and Time
Discharge Date/Time: 05/06/25 20:20
Print Language: MACEDONIAN
== END 2025-05-06 20:20 | disposition home or self-care (01) | DRG 263 ==
LOC: ICU 11:18
PROVIDERS: Nurse Practitioner Acute Care; Nurse Practitioner Primary Care; ADMITTING PHYSICIAN Surgery Vascular Surgery; CONSULT PHYSICIAN Internal Medicine Critical Care Medicine; OTHER PHYSICIAN Specialist; PRIMARYCARE PHYSICIAN Internal Medicine
PROC: 06BP0ZZ Excision of Right Saphenous Vein, Open Approach (ICD-10-PCS; 2025-05-05)
PROC: 031809D Bypass Left Brachial Artery to Upper Arm Vein with Autologous Venous Tissue, Open Approach (ICD-10-PCS; 2025-05-05)
PROC: 5A1D70Z Performance of Urinary Filtration, Intermittent, Less than 6 Hours Per Day (ICD-10-PCS; 2025-05-06)
DX: T82.590A Other mechanical complication of surgically created arteriovenous fistula, initial encounter (principal); N18.6 End stage renal disease; I13.2 Hypertensive heart and chronic kidney disease with heart failure and with stage 5 chronic kidney disease, or end stage renal disease; I50.30 Unspecified diastolic (congestive) heart failure; I77.89 Other specified disorders of arteries and arterioles; E11.22 Type 2 diabetes mellitus with diabetic chronic kidney disease; E11.40 Type 2 diabetes mellitus with diabetic neuropathy, unspecified; D63.8 Anemia in other chronic diseases classified elsewhere; E87.5 Hyperkalemia; E11.65 Type 2 diabetes mellitus with hyperglycemia; F32.A Depression, unspecified; M51.369 Other intervertebral disc degeneration, lumbar region without mention of lumbar back pain or lower extremity pain; E11.42 Type 2 diabetes mellitus with diabetic polyneuropathy; F41.9 Anxiety disorder, unspecified; Y83.1 Surgical operation with implant of artificial internal device as the cause of abnormal reaction of the patient, or of later complication, without mention of misadventure at the time of the procedure; Y92.9 Unspecified place or not applicable; Z79.4 Long term (current) use of insulin; Z86.16 Personal history of COVID-19; Z98.1 Arthrodesis status; Z90.49 Acquired absence of other specified parts of digestive tract; Z89.422 Acquired absence of other left toe(s); Z99.2 Dependence on renal dialysis
CPT/HCPCS: 36838; 71045; 80048; 82962; 83735; 84100; 84132; 85027; 85610; 85730; 93005; G0257

== ENCOUNTER → 2025-06-23 12:43 | Outpatient (REF) | payer MEDICARE, OTHER, SELFPAY ==
--- NOTE | 2025-06-23 13:49 | PTCARENOTE ---
patient re'cd alert and awake in no distress. right chest HD catheter in place. Adela Flores RTR removed catheter bedside without issues. sterile dressing in place. dressing CDI after 15min. given discharge instructions.
== END ==
LOC: RADI 12:43
PROVIDERS: ATTENDING PHYSICIAN Specialist
DX: Z49.01 Encounter for fitting and adjustment of extracorporeal dialysis catheter (principal); N18.6 End stage renal disease
CPT/HCPCS: 36589